=== PATIENT | female | born 1950 | race Caucasian/White ===

== ENCOUNTER 2017-08-20 22:41 | Emergency (ER) | payer MEDICARE ==
--- NOTE | 2017-08-20 23:44 | ERPHSYRPT ---
- History of Present Illness Time Seen by Provider: 08/20/17 23:25 Source: patient, family () Exam Limitations: no limitations Physician History: FOR THE PAST 5 DAYS PT HAS HAD DIARRHEA; FOR THE PAST 4 DAYS SHAKES IN HER LEGS. ABOUT 2.5 HOURS AGO PT HAD MID ANTERIOR CHEST PRESSURE WHICH HAS SINCE DISAPPEARED. PT DENIES SHORTNESS OF AIR, VOMITING, FEVER. Allergies/Adverse Reactions: hydromorphone [From Dilaudid] Allergy (Severe, Verified 08/20/17 23:48) Difficulty Breathing morphine Allergy (Severe, Verified 08/20/17 23:48) Difficulty Breathing ciprofloxacin [From Cipro] Allergy (Verified 08/20/17 23:48) diphenhydramine [From Benadryl] Allergy (Verified 08/20/17 23:48) meclofenamic acid [From Meclomen] Allergy (Verified 08/20/17 23:48) Home Medications: Acetaminophen [Tylenol] 650 mg PO DAILY 08/20/17 [History] Bumetanide [Bumex] 2 mg PO DAILY 08/20/17 [History] Calcium No.1/D3/B6/FA/B12/Aloe [Vitamin D3-Aloe 1,000 Unit Tab] 2 each PO DAILY 08/20/17 [History] Clonazepam [Klonopin] 0.25 mg PO QID 08/20/17 [History] Clopidogrel Bisulfate 75 mg [PLAVIX 75 MG Tablet] 75 mg PO DAILY 08/20/17 [History] Duloxetine HCl [Cymbalta] 60 mg PO DAILY 08/20/17 [History] Gabapentin [Neurontin] 600 mg PO QID 08/20/17 [History] Glimepiride 4 mg [Amaryl 4 mg] 4 mg PO DAILY 08/20/17 [History] Hydralazine HCl 10 mg PO BID 08/20/17 [History] Insulin Glargine,Hum.rec.anlog [Philip Solostnatalya] 300 unit SQ DAILY 08/20/17 [ History] Isosorbide Mononitrate 30 mg [Imdur 30 MG] 30 mg PO DAILY 08/20/17 [History ] Loratadine 10 mg [Claritin 10 mg] 10 mg PO DAILY 08/20/17 [History] Losartan Potassium [Cozaar] 100 mg PO DAILY 08/20/17 [History] Magnesium 250 mg PO DAILY 08/20/17 [History] Metolazone 2.5 mg [Zaroxolyn 2.5 MG] 2.5 mg PO DAILY 08/20/17 [History] Metoprolol Heller/Hydrochlorothiaz [Metoprolol ER-Hctz 50-12.5 mg] 1 each PO DAILY 08/20/17 [History] Morphine Sulfate/Naltrexone [Embeda 30-1.2 mg Capsule] 1 each PO BID 08/20/17 [ History] Multivitamin [Multi-Vitamin Daily] 1 each PO DAILY 08/20/17 [History] Nitroglycerin 0.4 mg Tablet [Nitrostat 0.4 MG Tablet] 0.4 mg SL DAILY PRN 08/20/17 [History] Potassium Chloride 10 Meq Tab* [Klor Con 10 MEQ] 10 meq PO 5XD 08/20/17 [ History] Trazodone HCl 50 mg [Desyrel 50 mg] 50 mg PO HS 08/20/17 [History] - Review of Systems Constitutional: No Fever Respiratory: No Dyspnea Cardiac: Other (CHEST PRESSURE) Abdominal/Gastrointestinal: Diarrhea, No Vomiting Musculoskeletal: Other (SHAKES IN HER LEGS) All Other Systems: Reviewed and Negative - Past Medical History Pertinent Past Medical History: Yes Neurological History: Migraines ENT History: Cataracts Cardiac History: Hypertension, Other Respiratory History: CHF Endocrine Medical History: Adrenal Insufficiency, Diabetes Type II Musculoskeletal History: Degenerative Disk Disease, Fibromyalgia, Fractures, Osteoarthritis GI Medical History: Gallbladder Disease, Hemorrhoids History: Renal Disease, Other Psycho-Social History: Anxiety, Depression, Panic Disorder Female Reproductive Disorders: No Pertinent History Other Medical History: stage 4 renal disease,valve replacement. rt ankle,rt leg, cancer left breast, - Past Surgical History Past Surgical History: Yes Neuro Surgical History: No Pertinent History Gastrointestinal: Cholecystectomy, Other Musculoskeletal: Orthopedic Surgery Female Surgical History: Hysterectomy, Section, Tubal Ligation, Mastectomy Other Surgical History: intestinal bypass and then reverse,sinus surgery times 2 roof/mouth then sinus surgery nose,left foot planters wart,right breast tumor, rt ankel/right leg,left breast mastectomy with sentinel removed,6 marek steroid inj,t.a.v.r.-transcatheter aortic value replacement,lumbar laminectomy, - Social History Smoking Status: Never smoker Exposure to second hand smoke: No Drug Use: none - Nursing Vital Signs Nursing Vital Signs: Initial Vital Signs Temperature 98.5 F 08/20/17 23:28 Pulse Rate 90 08/20/17 23:28 Respiratory Rate 18 08/20/17 23:28 Blood Pressure 153/80 08/20/17 23:28 O2 Sat by Pulse Oximetry 98 08/20/17 23:28 - Physical Exam General Appearance: alert Eye Exam: PERRL/EOMI Ears, Nose, Throat Exam: TMs normal, pharynx normal, moist mucous membranes Neck Exam: normal inspection Respiratory Exam: lungs clear Cardiovascular Exam: normal heart sounds Gastrointestinal/Abdomen Exam: soft, other (B.S. MODERATELY HYPERACTIVE AND NORMOTONIC) Back Exam: normal inspection Extremity Exam: normal range of motion Neurologic Exam: alert, cooperative, sensation nml, other (NO BABINSKI PRESENT) , No motor deficits, No motor weakness Skin Exam: warm, dry - Course Nursing assessment & vital signs reviewed: Yes Ordered Tests: Active Orders 24 hr Category Date Time Status IV Insertion STAT Care 08/20/17 23:38 Active Medication Summary Generic Name Dose Route Start Last Admin Trade Name Freq PRN Reason Stop Dose Admin Sodium Chloride 1,000 mls @ 100 mls/hr 08/20/17 23:45 08/21/17 00:07 Sodium Chloride 0.9% 1000 Ml IV 09/19/17 23:44 100 mls/hr .Q10H CESAR Administration Discontinued Medications Generic Name Dose Route Start Last Admin Trade Name Freq PRN Reason Stop Dose Admin Fentanyl Citrate 25 mcg 08/21/17 02:14 Sublimaze 100 Mcg/2 Ml IV 08/21/17 02:15 STAT ONE Magnesium Sulfate/Dextrose 100 mls @ 200 mls/hr 08/21/17 00:51 08/21/17 01:18 Magnesium 1 Gm / 100 Ml D5w IV 08/21/17 01:20 200 mls/hr STAT ONE Administration Sodium Chloride 1,000 mls @ 999 mls/hr 08/21/17 00:51 08/21/17 01:18 Sodium Chloride 0.9% 1000 Ml IV 08/21/17 01:51 999 mls/hr .Q1H1M STA Administration Magnesium Sulfate/Dextrose Confirm 08/21/17 01:17 Magnesium 1 Gm / 100 Ml D5w Administered 08/21/17 01:18 Dose 100 mls @ ud IV .STK-MED ONE Trimethoprim/Sulfamethoxazole 1 tab 08/21/17 02:14 Bactrim Ds Tablet PO 08/21/17 02:15 STAT ONE Lab/Rad Data: Laboratory Result Diagrams 08/20/17 00:02 08/20/17 00:02 Laboratory Results 08/20/17 08/20/17 08/20/17 Range/Units 01:06 00:02 00:02 WBC (4.0-10.5) K/mm3 RBC (4.1-5.4) M/mm3 Hgb (12.0-16.0) gm/dl Hct (35-47) % MCV (78-100) fl MCH (26-32) pg MCHC (32-36) g/dl RDW (11.5-14.0) % Plt Count (150-450) K/mm3 MPV (6-9.5) fl Gran % (36.0-66.0) % Lymphocytes % (24.0-44.0) % Monocytes % (0.0-12.0) % Eosinophils % (0.00-5.0) % Basophils % (0.0-0.4) % Basophils # (0-0.4) Sodium 126 L (136-145) mEq/L Potassium 4.3 (3.5-5.1) mEq/L Chloride 93 L (98-107) mEq/L Carbon Dioxide 25.8 (21-32) mEq/L Anion Gap 11.4 (5-15) MEQ/L BUN 20 (9-20) mg/dL Creatinine 1.46 H (0.55-1.30) mg/dl Estimated GFR 38 ML/MIN Glucose 246 H (70-110) MG/DL Calcium 8.7 (8.5-10.1) mg/dL Magnesium 1.6 L (1.8-2.4) mg/dL Total Bilirubin 0.30 (0.2-1.0) mg/dL AST 16 (15-37) U/L ALT 20 (12-78) U/L Alkaline Phosphatase 107 (46-116) U/L Serum Total Protein 6.5 (6.4-8.2) gm/dL Albumin 2.9 L (3.4-5.0) g/dL Amylase 31 (25-115) U/L Lipase 225 (73-393) U/L Ur Collection Type VOID Urine Color YELLOW (YELLOW) Urine Appearance CLEAR (CLEAR) Urine pH 6.0 (5-6) Ur Specific [place] 1.010 (1.005-1.025) Urine Protein NEGATIVE (Negative) Urine Ketones NEGATIVE (NEGATIVE) Urine Blood NEGATIVE (0-5) Tulio/ul Urine Nitrite NEGATIVE (NEGATIVE) Urine Bilirubin NEGATIVE (NEGATIVE) Urine Urobilinogen NORMAL (0-1) mg/dL Ur Leukocyte Esterase 1+ (NEGATIVE) Urine Microscopic RBC 2-5 (0-2) /HPF Urine Microscopic WBC 2-5 (0-5) /HPF Ur Epithelial Cells FEW (FEW) /HPF Urine Bacteria FEW (NEGATIVE) /HPF Urine Culture Reflexed NO (NO) Urine Glucose 100 (NEGATIVE) mg/dL Specimen Received 08/21/17 0100 08/20/17 Range/Units 00:02 WBC 10.2 (4.0-10.5) K/mm3 RBC 3.62 L (4.1-5.4) M/mm3 Hgb 10.8 L (12.0-16.0) gm/dl Hct 31.9 L (35-47) % MCV 88.1 (78-100) fl MCH 29.8 (26-32) pg MCHC 33.9 (32-36) g/dl RDW 12.8 (11.5-14.0) % Plt Count 163 (150-450) K/mm3 MPV 10.7 H (6-9.5) fl Gran % 68.0 H (36.0-66.0) % Lymphocytes % 20.3 L (24.0-44.0) % Monocytes % 10.0 (0.0-12.0) % Eosinophils % 1.5 (0.00-5.0) % Basophils % 0.2 (0.0-0.4) % Basophils # 0.02 (0-0.4) Sodium (136-145) mEq/L Potassium (3.5-5.1) mEq/L Chloride (98-107) mEq/L Carbon Dioxide (21-32) mEq/L Anion Gap (5-15) MEQ/L BUN (9-20) mg/dL Creatinine (0.55-1.30) mg/dl Estimated GFR ML/MIN Glucose (70-110) MG/DL Calcium (8.5-10.1) mg/dL Magnesium (1.8-2.4) mg/dL Total Bilirubin (0.2-1.0) mg/dL AST (15-37) U/L ALT (12-78) U/L Alkaline Phosphatase (46-116) U/L Serum Total Protein (6.4-8.2) gm/dL Albumin (3.4-5.0) g/dL Amylase (25-115) U/L Lipase (73-393) U/L Ur Collection Type Urine Color (YELLOW) Urine Appearance (CLEAR) Urine pH (5-6) Ur Specific [place] (1.005-1.025) Urine Protein (Negative) Urine Ketones (NEGATIVE) Urine Blood (0-5) Tulio/ul Urine Nitrite (NEGATIVE) Urine Bilirubin (NEGATIVE) Urine Urobilinogen (0-1) mg/dL Ur Leukocyte Esterase (NEGATIVE) Urine Microscopic RBC (0-2) /HPF Urine Microscopic WBC (0-5) /HPF Ur Epithelial Cells (FEW) /HPF Urine Bacteria (NEGATIVE) /HPF Urine Culture Reflexed (NO) Urine Glucose (NEGATIVE) mg/dL Specimen Received - Departure Time of Disposition: 02:20 Departure Disposition: Home Clinical Impression: DIARRHEA, HYPOMAGNESEMIA, HYPONATREMIA, UTI, HTN, DM, FIBROMYALGIA, CKD, ANXIETY, DEPRESSION Condition: Stable Critical Care Time: No Referrals: SONIA MARTIN MD [Primary Care Provider] - Instructions: Diarrhea and Traveler's Diarrhea, Adult (DC), Urinary Tract Infections in Adults Additional Instructions: FOLLOW UP WITH PRIVATE DOCTOR TOMORROW. Prescriptions: Smz/Tmp Ds Tablet [Bactrim Ds Tablet] 1 udtab PO BID #20 tablet
[2017-08-20] MEDS ORDERED: Sodium Chloride 0.9% 1000 ML 1,000 ML IV SCH (23:45)
[2017-08-20 23:47] VITALS: O2SAT 98
[2017-08-21 00:06] LABS: BASOPHIL % 0.2 % (0.0-0.4); Basophil (Absolute #) 0.02 (0-0.4); Eosinophil % 1.5 % (0.00-5.0); Eosinophil (Absolute #) 0.15 (0-0.5); Granulocyte Absolute (ANC) 6.92 (1.4-6.9); Hematocrit 31.9 % (35-47); Hemoglobin 10.8 gm/dl (12.0-16.0); Lymphocyte (Absolute #) 2.06 (1.0-4.6); Lymphocytes % 20.3 % (24.0-44.0); Mean Cell Volume 88.1 fl (78-100); Mean Corpuscular Hemoglobin 29.8 pg (26-32); Mean Corpuscular Hgb Concent. 33.9 g/dl (32-36); Mean Platelet Volume 10.7 fl (6-9.5); Monocyte (Absolute #) 1.02 (0.0-1.3); Platelet Count 163 K/mm3 (150-450); Red Blood Count 3.62 M/mm3 (4.1-5.4); Red Cell Distribution Width 12.8 % (11.5-14.0); White Blood Count 10.2 K/mm3 (4.0-10.5)
[2017-08-21] MEDS ORDERED: Sodium Chloride 0.9% 1000 ML 1,000 ML ONE (00:06)
[2017-08-21 00:32] LABS: ALBUMIN 2.9 g/dL (3.4-5.0); ANION GAP 11.4 MEQ/L (5-15); BILIRUBIN,TOTAL 0.3 mg/dL (0.2-1.0); Calcium 8.7 mg/dL (8.5-10.1); Carbon Dioxide 25.8 mEq/L (21-32); Creatinine 1 1.46 mg/dl (0.55-1.30); Potassium 4.3 mEq/L (3.5-5.1); Total Protein 6.5 gm/dL (6.4-8.2)
[2017-08-21] MEDS ORDERED: Magnesium 1 Gm / 100 Ml D5W*** 100 ML IV ONE ×2 (00:51→01:17)
[2017-08-21] MEDS ORDERED: Sodium Chloride 0.9% 1000 ML 1,000 ML IV STA (00:51)
[2017-08-21 01:33] LABS: Appearance CLEAR (CLEAR); Bilirubin NEGATIVE (NEGATIVE); Blood NEGATIVE Ery/ul (0-5); Glucose 100 mg/dL (NEGATIVE); Ketones NEGATIVE (NEGATIVE); Leukocyte Esterase 1+ (NEGATIVE); Nitrite NEGATIVE (NEGATIVE); Protein,Urine Dip NEGATIVE (Negative); Urobilinogen NORMAL mg/dL (0-1)
[2017-08-21 01:34] LABS: Bacteria FEW /HPF (NEGATIVE); Epithelial Cells FEW /HPF (FEW)
[2017-08-21] MEDS ORDERED: SUBLIMAZE 100 MCG/2 ML IV ONE (02:14)
[2017-08-21] MEDS ORDERED: BACTRIM DS TABLET PO ONE ×2 (02:14→02:18)
[2017-08-21] MEDS ORDERED: SUBLIMAZE 100 MCG/2 ML ONE (02:19)
[2017-08-21 02:38] VITALS: BP 162/85; PULSE 80
== END 2017-08-21 02:38 | disposition home or self-care (01) ==
LOC: ED 22:41
DX: R19.7 Diarrhea, unspecified (principal); E83.42 Hypomagnesemia; N39.0 Urinary tract infection, site not specified; E87.1 Hypo-osmolality and hyponatremia; I10 Essential (primary) hypertension; Z79.899 Other long term (current) drug therapy; E11.9 Type 2 diabetes mellitus without complications; M79.7 Fibromyalgia; N18.9 Chronic kidney disease, unspecified; F41.9 Anxiety disorder, unspecified; F32.9 Major depressive disorder, single episode, unspecified
CPT/HCPCS: 36000; 36415; 80053; 81000; 82150; 83690; 83735; 85025; 96360; 96365; 96374; 99284; J3010; J3475; A9270-GY

== ENCOUNTER 2017-09-09 14:04 | Emergency (ER) | payer MEDICARE ==
[2017-09-09 14:25] VITALS: BP 189/82; PULSE 86; O2SAT 99
[2017-09-09] MEDS ORDERED: Lactated Ringers 1,000 ML IV ONE ×2 (15:10→15:49)
[2017-09-09] MEDS ORDERED: Zofran 4 MG/2 ML VIAL IV ONE (15:11)
--- NOTE | 2017-09-09 15:14 | ERPHSYRPT ---
- History of Present Illness Time Seen by Provider: 09/09/17 15:01 Source: patient, family () Patient Subjective Stated Complaint: diarrhea Triage Nursing Assessment: pt to er c/o diarrhead x3 days, no vomiting, no nausea, called dr. johnson who advised her to come to ER for possible dehydration Physician History: CC: diarrhea Hx: 67 y/o patient of Dr Martin with intermittent diarrhea for the past few weeks. She has hx of DM. No blood. No vomiting. No fever. Stomach feels queasy. Severity: moderate (intermittent) Allergies/Adverse Reactions: hydromorphone [From Dilaudid] Allergy (Severe, Verified 08/20/17 23:48) Difficulty Breathing morphine Allergy (Severe, Verified 08/20/17 23:48) Difficulty Breathing ciprofloxacin [From Cipro] Allergy (Verified 08/20/17 23:48) diphenhydramine [From Benadryl] Allergy (Verified 08/20/17 23:48) meclofenamic acid [From Meclomen] Allergy (Verified 08/20/17 23:48) Home Medications: Acetaminophen [Tylenol] 650 mg PO DAILY 08/20/17 [History] Bumetanide [Bumex] 2 mg PO DAILY 08/20/17 [History] Calcium No.1/D3/B6/FA/B12/Aloe [Vitamin D3-Aloe 1,000 Unit Tab] 2 each PO DAILY 08/20/17 [History] Clonazepam [Klonopin] 0.25 mg PO QID 08/20/17 [History] Clopidogrel Bisulfate 75 mg [PLAVIX 75 MG Tablet] 75 mg PO DAILY 08/20/17 [History] Duloxetine HCl [Cymbalta] 60 mg PO DAILY 08/20/17 [History] Gabapentin [Neurontin] 600 mg PO QID 08/20/17 [History] Hydralazine HCl 10 mg PO BID 08/20/17 [History] Insulin Glargine,Hum.rec.anlog [Philip Sainz] 300 unit SQ DAILY 08/20/17 [ History] Isosorbide Mononitrate 30 mg [Imdur 30 MG] 30 mg PO DAILY 08/20/17 [History ] Loratadine 10 mg [Claritin 10 mg] 10 mg PO DAILY 08/20/17 [History] Losartan Potassium [Cozaar] 100 mg PO DAILY 08/20/17 [History] Magnesium 250 mg PO DAILY 08/20/17 [History] Metolazone 2.5 mg [Zaroxolyn 2.5 MG] 2.5 mg PO DAILY 08/20/17 [History] Metoprolol Heller/Hydrochlorothiaz [Metoprolol ER-Hctz 50-12.5 mg] 1 each PO DAILY 08/20/17 [History] Multivitamin [Multi-Vitamin Daily] 1 each PO DAILY 08/20/17 [History] Nitroglycerin 0.4 mg Tablet [Nitrostat 0.4 MG Tablet] 0.4 mg SL DAILY PRN 08/20/17 [History] Potassium Chloride 10 Meq Tab* [Klor Con 10 MEQ] 10 meq PO 5XD 08/20/17 [ History] Trazodone HCl 50 mg [Desyrel 50 mg] 50 mg PO HS 08/20/17 [History] Hx Tetanus, Diphtheria Vaccination/Date Given: No Hx Influenza Vaccination/Date Given: Yes Hx Pneumococcal Vaccination/Date Given: Yes - Review of Systems Constitutional: Fatigue, Malaise, Weakness, No Fever, No Chills Eyes: No Symptoms Ears, Nose, & Throat: No Symptoms Respiratory: No Cough, No Dyspnea Cardiac: No Chest Pain Abdominal/Gastrointestinal: Nausea, Diarrhea, No Abdominal Pain, No Vomiting Genitourinary Symptoms: No Dysuria Skin: No Rash Neurological: No Headache All Other Systems: Reviewed and Negative - Past Medical History Pertinent Past Medical History: Yes Neurological History: Migraines ENT History: Cataracts Cardiac History: Coronary Artery Disease, Other Respiratory History: No Pertinent History Endocrine Medical History: Diabetes Type II Musculoskeletal History: Degenerative Disk Disease GI Medical History: Irritable Bowel History: No Pertinent History Psycho-Social History: Anxiety, Depression Female Reproductive Disorders: No Pertinent History Other Medical History: stage 4 renal disease,valve replacement. rt ankle,rt leg, cancer left breast, - Past Surgical History Past Surgical History: Yes Neuro Surgical History: No Pertinent History Cardiac: Other Respiratory: No Pertinent History Gastrointestinal: Bowel Surgery Genitourinary: No Pertinent History Musculoskeletal: No Pertinent History Female Surgical History: No Pertinent History Other Surgical History: intestinal bypass and then reverse,sinus surgery times 2 roof/mouth then sinus surgery nose,left foot planters wart,right breast tumor, rt ankel/right leg,left breast mastectomy with sentinel removed,6 marek steroid inj,t.a.v.r.-transcatheter aortic value replacement,lumbar laminectomy, - Social History Smoking Status: Never smoker Exposure to second hand smoke: No Drug Use: none Patient Lives Alone: No - Female History Hx Now: No - Nursing Vital Signs Nursing Vital Signs: Initial Vital Signs Temperature 97.9 F 09/09/17 14:16 Pulse Rate 86 09/09/17 14:16 Respiratory Rate 20 09/09/17 14:16 Blood Pressure 189/82 09/09/17 14:16 O2 Sat by Pulse Oximetry 99 09/09/17 14:16 Pain Scale Pain Intensity 4 - Physical Exam General Appearance: alert Eye Exam: PERRL/EOMI Ears, Nose, Throat Exam: dry mucous membranes Neck Exam: normal inspection, non-tender, supple Respiratory Exam: normal breath sounds Cardiovascular Exam: regular rate/rhythm Gastrointestinal/Abdomen Exam: soft, No tenderness, No distention Extremity Exam: normal inspection, normal range of motion Neurologic Exam: alert, oriented x 3, cooperative, sensation nml, No motor deficits Skin Exam: warm, dry, No rash SpO2 Interpretation: normal SpO2: 99 Oxygen Delivery: Room Air - Course Nursing assessment & vital signs reviewed: Yes - Radiology Exams AAS X-ray Interpretation: Teleradiologist Report (minimal air distended small and large bowel loops with fluid leveling. Rule out ileus vs enterocolitis. ) Ordered Tests: Active Orders 24 hr Category Date Time Status IV Insertion STAT Care 09/09/17 15:10 Active OBSTR/ACUTE ABDOMEN SERIES Stat Exams 09/09/17 15:10 Completed CBC W DIFF Stat Lab 09/09/17 15:54 Completed CMP Stat Lab 09/09/17 15:54 Completed Medication Summary Discontinued Medications Generic Name Dose Route Start Last Admin Trade Name Freq PRN Reason Stop Dose Admin Lactated Ringer's 1,000 mls @ 999 mls/hr 09/09/17 15:10 09/09/17 15:51 Lactated Ringers IV 09/09/17 16:10 999 mls/hr .Q1H1M ONE Administration Lactated Ringer's Confirm 09/09/17 15:49 Lactated Ringers Administered 09/09/17 15:50 Dose 1,000 mls @ ud IV .STK-MED ONE Ondansetron HCl 4 mg 09/09/17 15:11 09/09/17 15:50 Zofran 4 Mg/2 Ml Vial IV 09/09/17 15:12 4 mg STAT ONE Administration Ondansetron HCl Confirm 09/09/17 15:49 Zofran 4 Mg/2 Ml Vial Administered 09/09/17 15:50 Dose 4 mg .ROUTE .STK-MED ONE Lab/Rad Data: Laboratory Result Diagrams 09/09/17 15:54 09/09/17 15:54 Laboratory Results 09/09/17 09/09/17 Range/Units 15:54 15:54 WBC 9.1 (4.0-10.5) K/mm3 RBC 4.12 (4.1-5.4) M/mm3 Hgb 12.6 (12.0-16.0) gm/dl Hct 37.0 (35-47) % MCV 89.8 (78-100) fl MCH 30.6 (26-32) pg MCHC 34.1 (32-36) g/dl RDW 13.0 (11.5-14.0) % Plt Count 158 (150-450) K/mm3 MPV 10.0 H (6-9.5) fl Gran % 71.5 H (36.0-66.0) % Lymphocytes % 20.0 L (24.0-44.0) % Monocytes % 7.1 (0.0-12.0) % Eosinophils % 1.3 (0.00-5.0) % Basophils % 0.1 (0.0-0.4) % Basophils # 0.01 (0-0.4) Sodium 135 L (137-145) mmol/L Potassium 3.7 (3.5-5.1) mmol/L Chloride 88 L (98-107) mEq/L Carbon Dioxide 36 H (22-30) mmol/L Anion Gap 14.0 MEQ/L BUN 28 H (7-17) mg/dl Creatinine 1.26 H (0.52-1.04) mg/dl Estimated GFR 45 ML/MIN Glucose 212 H (74-106) mg/dL Calcium 9.6 (8.4-10.2) mg/dl Total Bilirubin 0.60 (0.2-1.3) mg/d? AST 21 (14-36) U/L ALT 28 (0-35) U/L Alkaline Phosphatase 143 H (38-126) U/L Serum Total Protein 7.6 (6.3-8.2) mg/dl Albumin 4.1 (3.5-5.0) g/dl - Progress Progress Note: 09/09/17 17:03 1L LR given. No diarrhea here. Collection kit for stool GI panel given. made her an appt with Dr Martin in AM. Will release with instr. Counseled pt/family regarding: lab results, diagnosis, need for follow-up, rad results - Departure Time of Disposition: 17:04 Departure Disposition: Home Clinical Impression: Diarrhea Qualifiers: Diarrhea type: unspecified type Qualified Code(s): R19.7 - Diarrhea, unspecified Condition: Fair Critical Care Time: No Referrals: SONIA MARTIN MD [Primary Care Provider] - Instructions: Diarrhea and Traveler's Diarrhea, Adult (DC) Additional Instructions: See Dr Martin tomorrow as planned. Sip fluids. Collect stool sample for lab as instructed.
[2017-09-09] MEDS ORDERED: Zofran 4 MG/2 ML VIAL ONE (15:49)
[2017-09-09 15:53] LABS: BASOPHIL % 0.1 % (0.0-0.4); Basophil (Absolute #) 0.01 (0-0.4); Eosinophil % 1.3 % (0.00-5.0); Eosinophil (Absolute #) 0.12 (0-0.5); Granulocyte Absolute (ANC) 6.51 (1.4-6.9); Granulocytes % 71.5 % (36.0-66.0); Hemoglobin 12.6 gm/dl (12.0-16.0); Lymphocyte (Absolute #) 1.82 (1.0-4.6); Mean Cell Volume 89.8 fl (78-100); Mean Corpuscular Hemoglobin 30.6 pg (26-32); Mean Corpuscular Hgb Concent. 34.1 g/dl (32-36); Monocyte (Absolute #) 0.65 (0.0-1.3); Monocytes % 7.1 % (0.0-12.0); Platelet Count 158 K/mm3 (150-450); Red Blood Count 4.12 M/mm3 (4.1-5.4); White Blood Count 9.1 K/mm3 (4.0-10.5)
[2017-09-09 16:18] LABS: ALBUMIN 4.1 g/dl (3.5-5.0); BILIRUBIN,TOTAL 0.6 mg/d? (0.2-1.3); Calcium 9.6 mg/dl (8.4-10.2); Creatinine 1 1.26 mg/dl (0.52-1.04); Potassium 3.7 mmol/L (3.5-5.1); Total Protein 7.6 mg/dl (6.3-8.2)
--- NOTE | 2017-09-09 16:25 | XRAY ---
Indication: Diarrhea 3 days. Comparison: Chest exam September 24, 2013. 2 views of the abdomen demonstrates minimal air distended small and large bowel loops with minimal fluid leveling, ileus versus enterocolitis. No focal bowel dilatation, collection, or free air. Right lower quadrant ingested medication/pill. Scattered vascular calcifications. Solid organs unremarkable. Osseous structures intact with mild multilevel lumbar degenerative spondylosis and L4-L5 laminectomy. Single PA chest demonstrates normal heart and lungs with new cardiac stent graft. Bony thorax intact. Impression: 1. Minimal air distended small and large bowel loops with fluid leveling. Rule out ileus versus enterocolitis. 2. Nonacute 1 view chest.
== END 2017-09-09 18:06 ==
LOC: ED 14:04
DX: R19.7 Diarrhea, unspecified (principal); I25.10 Atherosclerotic heart disease of native coronary artery without angina pectoris; I10 Essential (primary) hypertension; Z79.899 Other long term (current) drug therapy
CPT/HCPCS: 36000; 36415; 74022; 80053; 82962; 85025; 96360; 96374; 99283; 99284; J2405

== ENCOUNTER 2017-12-16 17:39 | Observation (INO) | payer MEDICARE ==
[2017-12-16] MEDS ORDERED: Sodium Chloride 0.9% 1000 ML 1,000 ML IV STA (18:41)
[2017-12-16] MEDS ORDERED: Sodium Chloride 0.9% 1000 ML 1,000 ML ONE (19:08)
[2017-12-16 19:22] LABS: BASOPHIL % 0.3 % (0.0-0.4); Basophil (Absolute #) 0.03 (0-0.4); Eosinophil % 6.3 % (0.00-5.0); Eosinophil (Absolute #) 0.54 (0-0.5); Granulocyte Absolute (ANC) 5.08 (1.4-6.9); Hematocrit 30.4 % (35-47); Hemoglobin 10.8 gm/dl (12.0-16.0); Lymphocyte (Absolute #) 1.96 (1.0-4.6); Lymphocytes % 22.8 % (24.0-44.0); Mean Cell Volume 91.3 fl (78-100); Mean Corpuscular Hemoglobin 32.4 pg (26-32); Mean Corpuscular Hgb Concent. 35.5 g/dl (32-36); Mean Platelet Volume 10.4 fl (6-9.5); Monocytes % 11.6 % (0.0-12.0); Platelet Count 217 K/mm3 (150-450); Red Blood Count 3.33 M/mm3 (4.1-5.4); Red Cell Distribution Width 13.7 % (11.5-14.0); White Blood Count 8.6 K/mm3 (4.0-10.5)
[2017-12-16 19:25] LABS: INR 0.99 (0.8-3.0)
[2017-12-16 19:31] LABS: ALBUMIN 3.4 g/dL (3.5-5.0); ANION GAP 11.3 MEQ/L (5-15); BILIRUBIN,TOTAL 0.4 mg/dL (0.2-1.3); Calcium 9.2 mg/dL (8.4-10.2); Creatinine 1 2.21 mg/dL (0.52-1.04); Potassium 3.6 mmol/L (3.5-5.1)
--- NOTE | 2017-12-16 19:51 | ERPHSYRPT ---
- History of Present Illness Time Seen by Provider: 12/16/17 19:46 Source: patient, family Exam Limitations: no limitations Patient Subjective Stated Complaint: PT states "I fell on friday and today I am just confused. I do not feel like myself. When I stand up, my body just does not want to respoind like i feel it should. my lower left back is hurting as well." Triage Nursing Assessment: Pt alert and oriented X 3, skin pwd PT ambulates slowly, able to speakin clear full sentences. Pt will occasionally say the wrong word, slightly tired, chandra stroke scale is negative Physician History: 67-year-old white female who apparently is here because that she fell on Friday and has felt like she's been confused family states that she has had somewhat of a slurred speech she is walking with a shuffling gait he fell Friday 2 days ago Patient apparently has a history of chronic back pain family states that last Friday and Friday she was on cyclobenzaprine which was stopped by her family doctor. Then on Friday and Friday patient was on Embed She would this was stopped and then she was on tramadol Friday, Patient states she just doesn't feel right No fevers no vomiting Patient briefly seen by Dr. Perez and labs were placed including CBC CMP troponin EKG head CT UA Patient is alert orientedx3 Past medical history includes migraines, diabetes type 2, cataracts, coronary artery disease, irritable bowel, degenerative disc disease, anxiety, depression , stage IV renal disease, valve replacement, orthopedic surgery no thank you past surgical history includes intestinal bypass, sinus surgeries, mouth surgery , right breast surgery, ankle and leg surgery, aortic valve replacement, lumbar laminectomy Timing/Duration: day(s) (3 days) Severity: moderate Modifying Factors: Improves With: nothing Associated Symptoms: No nausea, No vomiting, No abdominal pain, No shortness of breath, No heartburn, No diaphoresis, No cough, No chills, No chest pain, No fever, No headaches, No loss of appetite, No malaise, No rash, No syncope, No seizure, No weakness Allergies/Adverse Reactions: hydromorphone [From Dilaudid] Allergy (Severe, Verified 08/20/17 23:48) Difficulty Breathing morphine Allergy (Severe, Verified 08/20/17 23:48) Difficulty Breathing Sulfa (Sulfonamide Antibiotics) Allergy (Severe, Verified 12/16/17 17:49) ciprofloxacin [From Cipro] Allergy (Verified 08/20/17 23:48) diphenhydramine [From Benadryl] Allergy (Verified 08/20/17 23:48) meclofenamic acid [From Meclomen] Allergy (Verified 08/20/17 23:48) Home Medications: Acetaminophen [Tylenol] 650 mg PO DAILY 08/20/17 [History] Bumetanide [Bumex] 2 mg PO DAILY 08/20/17 [History] Calcium No.1/D3/B6/FA/B12/Aloe [Vitamin D3-Aloe 1,000 Unit Tab] 2 each PO DAILY 08/20/17 [History] Clonazepam [Klonopin] 0.25 mg PO QID 08/20/17 [History] Clopidogrel Bisulfate 75 mg [PLAVIX 75 MG Tablet] 75 mg PO DAILY 08/20/17 [History] Duloxetine HCl [Cymbalta] 60 mg PO DAILY 08/20/17 [History] Gabapentin [Neurontin] 600 mg PO QID 08/20/17 [History] Insulin Glargine,Hum.rec.anlog [Toujeo Solostar] 300 unit SQ DAILY 08/20/17 [ History] Isosorbide Mononitrate 30 mg [Imdur 30 MG] 30 mg PO DAILY 08/20/17 [History ] Loratadine 10 mg [Claritin 10 mg] 10 mg PO DAILY 08/20/17 [History] Losartan Potassium [Cozaar] 100 mg PO DAILY 08/20/17 [History] Magnesium 250 mg PO DAILY 08/20/17 [History] Metolazone 2.5 mg [Zaroxolyn 2.5 MG] 2.5 mg PO DAILY 08/20/17 [History] Metoprolol Heller/Hydrochlorothiaz [Metoprolol ER-Hctz 50-12.5 mg] 1 each PO DAILY 08/20/17 [History] Multivitamin [Multi-Vitamin Daily] 1 each PO DAILY 08/20/17 [History] Nitroglycerin 0.4 mg Tablet [Nitrostat 0.4 MG Tablet] 0.4 mg SL DAILY PRN 08/20/17 [History] Potassium Chloride 10 Meq Tab* [Klor Con 10 MEQ] 10 meq PO 5XD 08/20/17 [ History] Trazodone HCl 50 mg [Desyrel 50 mg] 50 mg PO HS 08/20/17 [History] Hx Tetanus, Diphtheria Vaccination/Date Given: Yes Hx Influenza Vaccination/Date Given: Yes Hx Pneumococcal Vaccination/Date Given: Yes Immunizations Up to Date: Yes - Review of Systems Constitutional: Other (patient states she just doesn't feel right shuffling gait ), No Fever, No Chills Eyes: No Symptoms Ears, Nose, & Throat: No Symptoms, Other (trouble swallowing) Respiratory: No Cough, No Dyspnea Cardiac: No Chest Pain, No Edema, No Syncope Abdominal/Gastrointestinal: No Abdominal Pain, No Nausea, No Vomiting, No Diarrhea Genitourinary Symptoms: No Dysuria Musculoskeletal: No Back Pain, No Neck Pain Neurological: No Dizziness, No Focal Weakness, No Sensory Changes Psychological: No Symptoms Endocrine: No Symptoms All Other Systems: Reviewed and Negative - Past Medical History Pertinent Past Medical History: Yes Neurological History: Migraines ENT History: Cataracts Cardiac History: Coronary Artery Disease, Other Respiratory History: No Pertinent History Endocrine Medical History: Diabetes Type II Musculoskeletal History: Degenerative Disk Disease GI Medical History: Irritable Bowel History: No Pertinent History Psycho-Social History: Anxiety, Depression Female Reproductive Disorders: No Pertinent History Other Medical History: stage 4 renal disease,valve replacement. rt ankle,rt leg, cancer left breast, - Past Surgical History Past Surgical History: Yes Neuro Surgical History: No Pertinent History Cardiac: Other Respiratory: No Pertinent History Gastrointestinal: Bowel Surgery Genitourinary: No Pertinent History Musculoskeletal: No Pertinent History Female Surgical History: No Pertinent History Other Surgical History: intestinal bypass and then reverse,sinus surgery times 2 roof/mouth then sinus surgery nose,left foot planters wart,right breast tumor, rt ankel/right leg,left breast mastectomy with sentinel removed,6 marek steroid inj,t.a.v.r.-transcatheter aortic value replacement,lumbar laminectomy, - Social History Smoking Status: Never smoker Exposure to second hand smoke: No Drug Use: none Patient Lives Alone: No - Female History Hx Now: No - Nursing Vital Signs Nursing Vital Signs: Initial Vital Signs Temperature 98.3 F 12/16/17 17:41 Pulse Rate 80 12/16/17 17:41 Respiratory Rate 16 12/16/17 17:41 Blood Pressure 95/50 12/16/17 17:41 O2 Sat by Pulse Oximetry 92 L 12/16/17 17:41 Pain Scale Pain Intensity 0 - Physical Exam General Appearance: no apparent distress, alert Eye Exam: PERRL/EOMI, eyes nml inspection Ears, Nose, Throat Exam: normal ENT inspection, TMs normal, pharynx normal, moist mucous membranes Neck Exam: normal inspection, non-tender, supple, full range of motion Respiratory Exam: normal breath sounds, lungs clear, No respiratory distress Cardiovascular Exam: regular rate/rhythm, normal heart sounds, normal peripheral pulses Gastrointestinal/Abdomen Exam: soft, normal bowel sounds, No tenderness, No mass Back Exam: normal inspection, normal range of motion, No CVA tenderness, No vertebral tenderness Extremity Exam: normal inspection, normal range of motion, pelvis stable Neurologic Exam: alert, oriented x 3, cooperative, contract recruiter II-XII nml as tested, normal mood/affect, nml cerebellar function, nml station & gait, sensation nml, No motor deficits SpO2 Interpretation: normal (97%) SpO2: 97 Oxygen Delivery: Room Air - Course Nursing assessment & vital signs reviewed: Yes EKG Interpreted by Me: RATE, Sinus Rhythm, NORMAL AXIS, Other (EKG: Sinus rhythm , 80 bpm, normal axis, no acute ST or T wave changes noted) Ordered Tests: Active Orders 24 hr Category Date Time Status IV Insertion STAT Care 12/16/17 18:39 Active Orthostatic Vital Signs STAT Care 12/16/17 18:39 Active CHEST 1 VIEW (PORTABLE) Stat Exams 12/16/17 18:38 Taken HEAD WITHOUT CONTRAST [CT] Stat Exams 12/16/17 18:35 Taken CBC W DIFF Stat Lab 12/16/17 18:50 Completed CMP Stat Lab 12/16/17 18:50 Completed Lactic Acid Stat Lab 12/16/17 18:39 Completed PROTIME WITH INR Stat Lab 12/16/17 18:50 Completed TROPONIN Q3H Lab 12/16/17 18:50 Completed TROPONIN Q3H Lab 12/16/17 21:45 Ordered UA W/RFX UR CULTURE Stat Lab 12/16/17 20:00 Completed EKG STAT RT 12/16/17 18:39 Active Medication Summary Discontinued Medications Generic Name Dose Route Start Last Admin Trade Name Chapo PRN Reason Stop Dose Admin Sodium Chloride 1,000 mls @ 999 mls/hr 12/16/17 18:41 12/16/17 20:42 Sodium Chloride 0.9% 1000 Ml IV 12/16/17 19:41 Infused .Q1H1M STA Infusion Sodium Chloride Confirm 12/16/17 19:08 Sodium Chloride 0.9% 1000 Ml Administered 12/16/17 19:09 Dose 1,000 mls @ ud .ROUTE .[facility] Lab/Rad Data: Laboratory Result Diagrams 12/16/17 18:50 12/16/17 18:50 Laboratory Results 12/16/17 12/16/17 12/16/17 Range/Units 20:00 18:50 18:50 WBC (4.0-10.5) K/mm3 RBC (4.1-5.4) M/mm3 Hgb (12.0-16.0) gm/dl Hct (35-47) % MCV (78-100) fl MCH (26-32) pg MCHC (32-36) g/dl RDW (11.5-14.0) % Plt Count (150-450) K/mm3 MPV (6-9.5) fl Gran % (36.0-66.0) % Eos # (Auto) (0-0.5) Absolute Lymphs (auto) (1.0-4.6) Absolute Monos (auto) (0.0-1.3) Lymphocytes % (24.0-44.0) % Monocytes % (0.0-12.0) % Eosinophils % (0.00-5.0) % Basophils % (0.0-0.4) % Absolute Granulocytes (1.4-6.9) Basophils # (0-0.4) PT 11.5 (9.95-12.35) SECONDS INR 0.99 (0.8-3.0) Sodium (137-145) mmol/L Potassium (3.5-5.1) mmol/L Chloride (98-107) mmol/L Carbon Dioxide (22-30) mmol/L Anion Gap (5-15) MEQ/L BUN (7-17) mg/dL Creatinine (0.52-1.04) mg/dL Estimated GFR ML/MIN Glucose (74-106) mg/dL Lactic Acid (0.4-2.0) Calcium (8.4-10.2) mg/dL Total Bilirubin (0.2-1.3) mg/dL AST (14-36) U/L ALT (0-35) U/L Alkaline Phosphatase (38-126) U/L Troponin I 0.020 (0.000-0.034) ng/mL Serum Total Protein (6.3-8.2) g/dL Albumin (3.5-5.0) g/dL Ur Collection Type CLEAN CATCH Urine Color YELLOW (YELLOW) Urine Appearance CLEAR (CLEAR) Urine pH 5.0 (5-6) Ur Specific Deshler 1.010 (1.005-1.025) Urine Protein NEGATIVE (Negative) Urine Ketones NEGATIVE (NEGATIVE) Urine Blood NEGATIVE (0-5) Tulio/ul Urine Nitrite NEGATIVE (NEGATIVE) Urine Bilirubin NEGATIVE (NEGATIVE) Urine Urobilinogen NORMAL (0-1) mg/dL Ur Leukocyte Esterase NEGATIVE (NEGATIVE) Urine Culture Reflexed NO (NO) Urine Glucose NEGATIVE (NEGATIVE) mg/dL Specimen Received 12/16/17199912/16/17 12/16/17 12/16/17 Range/Units 18:50 18:50 18:39 WBC 8.6 (4.0-10.5) K/mm3 RBC 3.33 L (4.1-5.4) M/mm3 Hgb 10.8 L (12.0-16.0) gm/dl Hct 30.4 L (35-47) % MCV 91.3 (78-100) fl MCH 32.4 H (26-32) pg MCHC 35.5 (32-36) g/dl RDW 13.7 (11.5-14.0) % Plt Count 217 (150-450) K/mm3 MPV 10.4 H (6-9.5) fl Gran % 59.0 (36.0-66.0) % Eos # (Auto) 0.54 H (0-0.5) Absolute Lymphs (auto) 1.96 (1.0-4.6) Absolute Monos (auto) 1.00 (0.0-1.3) Lymphocytes % 22.8 L (24.0-44.0) % Monocytes % 11.6 (0.0-12.0) % Eosinophils % 6.3 H (0.00-5.0) % Basophils % 0.3 (0.0-0.4) % Absolute Granulocytes 5.08 (1.4-6.9) Basophils # 0.03 (0-0.4) PT (9.95-12.35) SECONDS INR (0.8-3.0) Sodium 124 L (137-145) mmol/L Potassium 3.6 (3.5-5.1) mmol/L Chloride 82 L (98-107) mmol/L Carbon Dioxide 34 H (22-30) mmol/L Anion Gap 11.3 (5-15) MEQ/L BUN 58 H (7-17) mg/dL Creatinine 2.21 H (0.52-1.04) mg/dL Estimated GFR 23.5 ML/MIN Glucose 120 H (74-106) mg/dL Lactic Acid 1.1 (0.4-2.0) Calcium 9.2 (8.4-10.2) mg/dL Total Bilirubin 0.40 (0.2-1.3) mg/dL AST 43 H (14-36) U/L ALT 23 (0-35) U/L Alkaline Phosphatase 116 (38-126) U/L Troponin I (0.000-0.034) ng/mL Serum Total Protein 6.0 L (6.3-8.2) g/dL Albumin 3.4 L (3.5-5.0) g/dL Ur Collection Type Urine Color (YELLOW) Urine Appearance (CLEAR) Urine pH (5-6) Ur Specific Deshler (1.005-1.025) Urine Protein (Negative) Urine Ketones (NEGATIVE) Urine Blood (0-5) Tulio/ul Urine Nitrite (NEGATIVE) Urine Bilirubin (NEGATIVE) Urine Urobilinogen (0-1) mg/dL Ur Leukocyte Esterase (NEGATIVE) Urine Culture Reflexed (NO) Urine Glucose (NEGATIVE) mg/dL Specimen Received - Progress Progress: improved Progress Note: 12/16/17 21:20 67-year-old white female arrives with complaint of feeling confused shuffling gait symptoms for 3 days after falling this is complicated by medications that she's been taking for chronic pain. On physical examination patient alert oriented 3 vitals are stable. Examination essentially normal. Patient does have a sodium of 120 she is being given normal saline 1 L. Neuro exam patient is alert oriented 3 Webb Coma Scale is 15 fingers nose is normal cardiac technician are equal and symmetrical 5 over 5 no pronator drift full range of motion to all extremities no sensory deficits. Head CT no acute intercranial changes are noted. Will go ahead and contact Dr. Martin and discuss case with him. 12/16/17 21:27 Patient's chemistry remarkable for a sodium of 124. Patient has received 1 L of normal saline IV. I've discussed the patient's case with Dr. Martin will place patient on observation obtain every 4 hours neuro checks. Provide normal saline at 100 mL per hour. - Departure Time of Disposition: 21:28 Departure Disposition: Observation Clinical Impression: Gait disturbance, Hyponatremia Condition: Fair Critical Care Time: No Referrals: SONIA MARTIN MD [Primary Care Provider] -
[2017-12-16 21:01] LABS: Appearance CLEAR (CLEAR)
[2017-12-16 21:03] LABS: Bilirubin NEGATIVE (NEGATIVE); Blood NEGATIVE Ery/ul (0-5); Glucose NEGATIVE (NEGATIVE); Ketones NEGATIVE (NEGATIVE); Leukocyte Esterase NEGATIVE (NEGATIVE); Nitrite NEGATIVE (NEGATIVE); Protein,Urine Dip NEGATIVE (Negative); Urobilinogen NORMAL mg/dL (0-1)
[2017-12-16] MEDS: Sodium Chloride 0.9% 1000 ML 1,000 ML IV SCH (22:34)
[2017-12-17] MEDS ORDERED: Klor Con 10 MEQ PO ONE (01:01)
[2017-12-17] MEDS ORDERED: Senokot-S Tablet PO PRN ×2 (01:02→07:14)
[2017-12-17] MEDS ORDERED: TYLENOL 325 MG PO PRN ×2 (01:04→07:14)
[2017-12-17] MEDS ORDERED: Toprol Xl 50 MG PO ONE (01:14)
[2017-12-17] MEDS ORDERED: NEURONTIN 300 MG PO SCH ×2 (01:30→10:00)
[2017-12-17] MEDS ORDERED: Klonopin 0.5 MG PO SCH ×2 (01:30→10:00)
[2017-12-17] MEDS ORDERED: Desyrel 150 MG PO ONE (01:30)
[2017-12-17 05:20] VITALS: O2SAT 92
[2017-12-17 05:50] LABS: BASOPHIL % 0.3 % (0.0-0.4); Basophil (Absolute #) 0.02 (0-0.4); Eosinophil % 6.4 % (0.00-5.0); Granulocyte Absolute (ANC) 4.54 (1.4-6.9); Granulocytes % 58.1 % (36.0-66.0); Hematocrit 28.7 % (35-47); Hemoglobin 10.1 gm/dl (12.0-16.0); Lymphocytes % 24.3 % (24.0-44.0); Mean Cell Volume 90.8 fl (78-100); Mean Corpuscular Hgb Concent. 35.2 g/dl (32-36); Mean Platelet Volume 10.2 fl (6-9.5); Monocyte (Absolute #) 0.85 (0.0-1.3); Monocytes % 10.9 % (0.0-12.0); Platelet Count 172 K/mm3 (150-450); Red Blood Count 3.16 M/mm3 (4.1-5.4); Red Cell Distribution Width 13.5 % (11.5-14.0); White Blood Count 7.8 K/mm3 (4.0-10.5)
[2017-12-17 05:52] LABS: Mean Corpuscular Hemoglobin 31.9 pg (26-32)
[2017-12-17 06:08] LABS: ALBUMIN 3.1 g/dL (3.5-5.0); ANION GAP 9.3 MEQ/L (5-15); BILIRUBIN,TOTAL 0.3 mg/dL (0.2-1.3); Calcium 8.6 mg/dL (8.4-10.2); Creatinine 1 1.84 mg/dL (0.52-1.04); Potassium 3.2 mmol/L (3.5-5.1); Total Protein 5.9 g/dL (6.3-8.2)
[2017-12-17] MEDS ORDERED: Nitrostat 0.4 MG Tablet SL PRN (07:14)
[2017-12-17] MEDS ORDERED: Zaroxolyn 2.5 MG PO PRN (07:14)
[2017-12-17] MEDS ORDERED: [UNRECOGNIZED DRUG - REMARK] PO SCH (07:15)
[2017-12-17] MEDS: Sodium Chloride 0.9% 1000 ML 1,000 ML IV SCH (08:13)
[2017-12-17 08:28] VITALS: BP 122/60; PULSE 80
--- NOTE | 2017-12-17 08:30 | XRAY ---
Indication: Confusion and fatigue. Multiple contiguous axial images obtained through the head without contrast. Comparison: None. Normal appearing brain parenchyma and ventricles. Bony calvarium intact with diffuse thickening as seen in patients on chronic antiseizure medications. Mild hyperostosis frontalis interna. Visualized paranasal sinuses and mastoid air cells are clear. Impression: No acute intracranial abnormalities. CT DI 66.37
--- NOTE | 2017-12-17 08:32 | XRAY ---
Indication: Confusion and lethargy. Comparison: September 09, 2017. Portable chest underinflated today with now right base atelectasis versus infiltrate. Remaining heart and lungs normal with again incidental cardiac stent graft. Bony thorax intact again with minimal degenerative changes.
--- NOTE | 2017-12-17 09:03 | PCM.SSS ---
History of Present Illness - Chief Complaint Chief Complaint: Gait disturbance for 2-3 days History of Present Illness: .67-year-old white female who apparently is here because that she fell on Friday and has felt like she's been confused family states that she has had somewhat of a slurred speech she is walking with a shuffling gait he fell Friday 2 days ago Patient apparently has a history of chronic back pain family states that last Friday and Friday she was on cyclobenzaprine which was stopped by her family doctor. Then on Friday and Friday patient was on Embed She would this was stopped and then she was on tramadol Friday, Patient states she just doesn't feel right No fevers no vomiting - Review of Systems Constitutional: No Fever, No Chills Eyes: No Symptoms Ears, Nose, & Throat: No Symptoms Respiratory: No Cough, No Short Of Breath Cardiac: No Chest Pain, No Edema, No Syncope Abdominal/Gastrointestinal: No Abdominal Pain, No Nausea, No Vomiting, No Diarrhea Genitourinary Symptoms: No Dysuria Musculoskeletal: No Back Pain, No Neck Pain Skin: No Rash Neurological: No Dizziness, No Focal Weakness, No Sensory Changes Psychological: No Symptoms Endocrine: No Symptoms Hematologic/Lymphatic: No Symptoms Immunological/Allergic: No Symptoms Medications & Allergies Home Medications: Home Medication List Acetaminophen [Tylenol] 650 mg PO TID PRN PRN 08/20/17 [History Confirmed ] Bumetanide [Bumex] 2 mg PO DAILY 08/20/17 [History Confirmed 12/16/17] Calcium No.1/D3/B6/FA/B12/Aloe [Vitamin D3-Aloe 1,000 Unit Tab] 2 each PO UD [History Confirmed 12/16/17] Clonazepam [Klonopin] 0.25 mg PO QID 08/20/17 [History Confirmed 12/16/17] Clopidogrel Bisulfate 75 mg [PLAVIX 75 MG Tablet] 75 mg PO DAILY 08/20/17 [History Confirmed 12/16/17] Duloxetine HCl [Cymbalta] 60 mg PO DAILY 08/20/17 [History Confirmed 12/16/17] Gabapentin [Neurontin] 600 mg PO QID 08/20/17 [History Confirmed 12/16/17] Insulin Glargine,Hum.rec.anlog [Toujeo Solostar] 40 unit SQ DAILY 08/20/17 [ History Confirmed 12/16/17] Isosorbide Mononitrate 30 mg [Imdur 30 MG] 30 mg PO DAILY 08/20/17 [ History Confirmed 12/16/17] Loratadine 10 mg [Claritin 10 mg] 10 mg PO DAILY 08/20/17 [History Confirmed 12/16/17] Losartan Potassium [Cozaar] 100 mg PO DAILY 08/20/17 [History Confirmed 12/16/17 ] Magnesium 250 mg PO DAILY 08/20/17 [History Confirmed 12/16/17] Metolazone 2.5 mg [Zaroxolyn 2.5 MG] 2.5 mg PO DAILY PRN PRN 08/20/17 [ History Confirmed 12/16/17] Multivitamin [Multi-Vitamin Daily] 1 each PO DAILY 08/20/17 [History Confirmed 12/16/17] Nitroglycerin 0.4 mg Tablet [Nitrostat 0.4 MG Tablet] 0.4 mg SL Q5MIN PRN MR X 3 PRN 08/20/17 [History Confirmed 12/16/17] Potassium Chloride 10 Meq Tab* [Klor Con 10 MEQ] 10 meq PO 5XD 08/20/17 [ History Confirmed 12/16/17] Trazodone HCl 50 mg [Desyrel 50 mg] 75 mg PO HS 08/20/17 [History Confirmed 12/16/17] Glipizide Xl 10 mg [Glucotrol Xl 10 MG] 10 mg PO DAILY 12/16/17 [History Confirmed 12/16/17] Metoprolol Succinate 50 mg [Toprol Xl 50 MG] 50 mg PO HS 12/16/17 [ History Confirmed 12/16/17] Sennosides/Docusate Sodium [Senna-S Tablet] 1 each PO BID PRN 12/17/17 [History Confirmed 12/17/17] Allergies/Adverse Reactions: Allergies Allergy/AdvReac Type Severity Reaction Status Date / Time hydromorphone [From Dilaudid] Allergy Severe Difficulty Verified 08/20/17 23:48 Breathing morphine Allergy Severe Difficulty Verified 08/20/17 23:48 Breathing Sulfa (Sulfonamide Allergy Severe Verified 12/16/17 23:55 Antibiotics) ciprofloxacin [From Cipro] Allergy Verified 08/20/17 23:48 diphenhydramine Allergy Verified 08/20/17 23:48 [From Benadryl] meclofenamic acid Allergy Verified 08/20/17 23:48 [From Meclomen] naltrexone [From Embeda] AdvReac Verified 12/16/17 23:55 - Past Medical History Past Medical History: Yes Neurological History: Migraines ENT History: Cataracts Cardiac History: Coronary Artery Disease, Other Respiratory History: No Pertinent History Endocrine Medical History: Diabetes Type II Musculoskelatal History: Degenerative Disk Disease GI Medical History: Irritable Bowel History: No Pertinent History Pyscho-Social History: Anxiety, Depression Reproductive Disorders: No Pertinent History Comment: stage 4 renal disease,valve replacement. rt ankle,rt leg fx,cancer left breast, - Female History Are you now?: No - Past Surgical History Past Surgical History: Yes Neuro Surgical History: No Pertinent History Cardiac History: Other Respiratory Surgery: No Pertinent History GI Surgical History: Bowel Surgery, Cholecystectomy Genitourinary Surgical Hx: No Pertinent History Musculskeletal Surgical Hx: No Pertinent History Female Surgical History: No Pertinent History, Hysterectomy Other Surgical History: intestinal bypass and then reverse,sinus surgery times 2 roof/mouth then sinus surgery nose,left foot planters wart,right breast tumor, rt ankle/right leg sx after fx,left breast mastectomy with sentinel removed,6 marek steroid inj,t.a.v.r.-transcatheter aortic value replacement,lumbar laminectomy, steroid injections in back - Social History Smoking Status: Never smoker Exposure to second hand smoke: No Alcohol: None Drug Use: none - Physical Exam Vital Signs: Vital Signs - 24 hr Temp Pulse Resp BP BP Pulse Ox 12/17/17 08:00 80 18 122/60 92 L 12/17/17 04:00 98.4 F 87 14 102/50 92 L 12/16/17 23:38 97.9 F 83 18 116/59 96 12/16/17 22:21 74 18 111/70 96 12/16/17 21:38 97 12/16/17 20:40 78 18 114/81 97 12/16/17 19:13 79 118 H 98/48 97 12/16/17 19:08 80 12/16/17 17:41 98.3 F 80 16 95/50 92 L General Appearance: no apparent distress, alert Neurologic Exam: alert, oriented x 3, cooperative, normal mood/affect, nml cerebellar function, nml station & gait, sensation nml, No motor deficits Eye Exam: PERRL/EOMI, eyes nml inspection Ears, Nose, Throat Exam: normal ENT inspection, TMs normal, pharynx normal, moist mucous membranes Neck Exam: normal inspection, non-tender, supple, full range of motion Respiratory Exam: normal breath sounds, lungs clear, No respiratory distress Cardiovascular Exam: regular rate/rhythm, normal heart sounds, normal peripheral pulses Gastrointestinal/Abdomen Exam: soft, normal bowel sounds, No tenderness, No mass Back Exam: normal inspection, normal range of motion, No CVA tenderness, No vertebral tenderness Extremity Exam: normal inspection, normal range of motion, pelvis stable Skin Exam: normal color, warm, dry, No rash Lymphatic Exam: No adenopathy Results - Labs Lab/Micro Results: Accuchecks Date 12/17/17 Time 07:30 Accucheck Value: 141 Lab Results-Last 24 Hours 12/17/17 12/17/17 Range/Units 05:35 05:35 WBC 7.8 (4.0-10.5) K/mm3 RBC 3.16 L (4.1-5.4) M/mm3 Hgb 10.1 L (12.0-16.0) gm/dl Hct 28.7 L (35-47) % MCV 90.8 (78-100) fl MCH 31.9 (26-32) pg MCHC 35.2 (32-36) g/dl RDW 13.5 (11.5-14.0) % Plt Count 172 (150-450) K/mm3 MPV 10.2 H (6-9.5) fl Gran % 58.1 (36.0-66.0) % Eos # (Auto) 0.50 (0-0.5) Absolute Lymphs (auto) 1.90 (1.0-4.6) Absolute Monos (auto) 0.85 (0.0-1.3) Lymphocytes % 24.3 (24.0-44.0) % Monocytes % 10.9 (0.0-12.0) % Eosinophils % 6.4 H (0.00-5.0) % Basophils % 0.3 (0.0-0.4) % Absolute Granulocytes 4.54 (1.4-6.9) Basophils # 0.02 (0-0.4) Sodium 126 L (137-145) mmol/L Potassium 3.2 L (3.5-5.1) mmol/L Chloride 88 L (98-107) mmol/L Carbon Dioxide 32 H (22-30) mmol/L Anion Gap 9.3 (5-15) MEQ/L BUN 54 H (7-17) mg/dL Creatinine 1.84 H (0.52-1.04) mg/dL Estimated GFR 29.0 ML/MIN Glucose 141 H (74-106) mg/dL Calcium 8.6 (8.4-10.2) mg/dL Total Bilirubin 0.30 (0.2-1.3) mg/dL AST 37 H (14-36) U/L ALT 22 (0-35) U/L Alkaline Phosphatase 99 (38-126) U/L Serum Total Protein 5.9 L (6.3-8.2) g/dL Albumin 3.1 L (3.5-5.0) g/dL Accuchecks Date 12/17/17 Time 07:30 Accucheck Value: 141 Assessment/Plan (1) Gait disturbance Current Visit: Yes Status: Resolved Code(s): R26.9 - UNSPECIFIED ABNORMALITIES OF GAIT AND MOBILITY (2) Hyponatremia Current Visit: Yes Status: Acute Assessment & Plan: improving Code(s): E87.1 - HYPO-OSMOLALITY AND HYPONATREMIA Hospital Summary - Hospital Course Hospital Course: Chief Complaint Diagnosis Gait disturbance for 2-3 days Allergies Allergy/AdvReac Type Severity Reaction Status Date / Time hydromorphone [From Dilaudid] Allergy Severe Difficulty Verified 08/20/17 23:48 Breathing morphine Allergy Severe Difficulty Verified 08/20/17 23:48 Breathing Sulfa (Sulfonamide Allergy Severe Verified 12/16/17 23:55 Antibiotics) ciprofloxacin [From Cipro] Allergy Verified 08/20/17 23:48 diphenhydramine Allergy Verified 08/20/17 23:48 [From Benadryl] meclofenamic acid Allergy Verified 08/20/17 23:48 [From Meclomen] naltrexone [From Embeda] AdvReac Verified 12/16/17 23:55 Vital Signs (Last 24 hours) Temp Pulse Resp BP BP Pulse Ox 12/17/17 08:00 80 18 122/60 92 L 12/17/17 04:00 98.4 F 87 14 102/50 92 L 12/16/17 23:38 97.9 F 83 18 116/59 96 12/16/17 22:21 74 18 111/70 96 12/16/17 21:38 97 12/16/17 20:40 78 18 114/81 97 12/16/17 19:13 79 118 H 98/48 97 12/16/17 19:08 80 12/16/17 17:41 98.3 F 80 16 95/50 92 L Home Medications Medication Instructions Recorded Confirmed Last Taken Type Glipizide Xl 10 mg [Glucotrol 10 mg PO DAILY 12/16/17 12/16/17 12/16/17 09: 00 History Xl 10 MG] Metoprolol Succinate 50 mg 50 mg PO HS 12/16/17 12/16/17 12/15/17 22:00 History [Toprol Xl 50 MG] Sennosides/Docusate Sodium 1 each PO BID PRN 12/17/17 12/17/17 12/15/17 History [Senna-S Tablet] Current Medications Generic Name Dose Route Start Last Admin Trade Name Freq PRN Reason Stop Dose Admin Acetaminophen 650 mg 12/17/17 01:04 Tylenol 325 Mg PO 01/16/18 01:03 TID PRN PRN PAIN AND/OR FEVER Acetaminophen 650 mg 12/17/17 07:14 Tylenol 325 Mg PO 01/16/18 07:13 TID PRN PRN PAIN Bumetanide 2 mg 12/17/17 10:00 Bumex 1 Mg PO 01/16/18 09:59 DAILY CESAR Calcium Carbonate 2 tab 12/17/17 10:00 Calcium 500mg W/Vit D Tablet PO 01/16/18 09:59 [id number]@1000 CESAR Clonazepam 0.25 mg 12/17/17 01:30 12/17/17 01:21 Klonopin 0.5 Mg PO 01/16/18 01:29 0.25 mg QID CESAR Administration Clonazepam 0.25 mg 12/17/17 10:00 Klonopin 0.5 Mg PO 01/16/18 09:59 QID CESAR Clopidogrel Bisulfate 75 mg 12/17/17 10:00 Plavix 75 Mg Tablet PO 01/16/18 09:59 DAILY CESAR Gabapentin 600 mg 12/17/17 01:30 12/17/17 01:22 Neurontin 300 Mg PO 01/16/18 01:29 600 mg QID CESAR Administration Gabapentin 600 mg 12/17/17 10:00 Neurontin 300 Mg PO 01/16/18 09:59 QID CESAR Glipizide 10 mg 12/17/17 10:00 Glucotrol Xl 10 Mg PO 01/16/18 09:59 DAILY CESAR Sodium Chloride 1,000 mls @ 100 mls/hr 12/16/17 22:26 12/17/17 08:13 Sodium Chloride 0.9% 1000 Ml IV 01/15/18 22:25 100 mls/hr .Q10H CESAR Administration Insulin Glargine 32 unit 12/17/17 10:00 Lantus Insulin SQ 01/16/18 09:59 DAILY CESAR Isosorbide Mononitrate 30 mg 12/17/17 10:00 Imdur 30 Mg PO 01/16/18 09:59 DAILY CESAR Loratadine 10 mg 12/17/17 10:00 Claritin 10 Mg PO 01/16/18 09:59 DAILY CESAR Losartan Potassium 100 mg 12/17/17 10:00 Cozaar 50 Mg PO 01/16/18 09:59 DAILY CESAR Magnesium Oxide 200 mg 12/17/17 10:00 Mag-Ox 400 PO 01/16/18 09:59 DAILY CESAR Metolazone 2.5 mg 12/17/17 07:14 Zaroxolyn 2.5 Mg PO 01/16/18 07:13 DAILY PRN PRN Fluid retention Metoprolol Succinate 50 mg 12/17/17 22:00 12/17/17 01:22 Toprol Xl 50 Mg PO 01/16/18 21:59 50 mg HS CESAR Administration Metoprolol Succinate 50 mg 12/17/17 22:00 Toprol Xl 50 Mg PO 01/16/18 21:59 HS CESAR Multivitamins Therapeutic 1 tab 12/17/17 10:00 Theragran Multivitamin PO 01/16/18 09:59 DAILY CESAR Nitroglycerin 0.4 mg 12/17/17 07:14 Nitrostat 0.4 Mg Tablet SL 01/16/18 07:13 Q5MIN PRN MR X 3 PRN PAIN Patient Own Med ( 0 each 12/17/17 10:00 Cymbalta 60mg) PO 01/16/18 09:59 DAILY CESAR Potassium Chloride 10 meq 12/17/17 11:00 Klor Con 10 Meq PO 01/16/18 10:59 5XD CESAR Senna/Docusate Sodium 1 udtab 12/17/17 01:02 Senokot-S Tablet PO 01/16/18 01:14 BID PRN PRN CONSTIPATION Senna/Docusate Sodium 1 udtab 12/17/17 07:14 Senokot-S Tablet PO 01/16/18 07:13 BID PRN PRN CONSTIPATION Trazodone HCl 75 mg 12/17/17 22:00 Desyrel 50 Mg PO 01/16/18 21:59 HS [facility] Discontinued Medications Generic Name Dose Route Start Last Admin Trade Name Freq PRN Reason Stop Dose Admin Sodium Chloride 1,000 mls @ 999 mls/hr 12/16/17 18:41 12/16/17 20:42 Sodium Chloride 0.9% 1000 Ml IV 12/16/17 19:41 Infused .Q1H1M STA Infusion Sodium Chloride Confirm 12/16/17 19:08 Sodium Chloride 0.9% 1000 Ml Administered 12/16/17 19:09 Dose 1,000 mls @ ud .ROUTE .STK-MED ONE Metoprolol Succinate Confirm 12/17/17 01:14 Toprol Xl 50 Mg Administered 12/17/17 01:15 Dose 50 mg PO .STK-MED ONE Potassium Chloride 10 meq 12/17/17 01:01 12/17/17 01:21 Klor Con 10 Meq PO 12/17/17 01:02 10 meq ONCE ONE Administration Trazodone HCl 75 mg 12/17/17 01:30 12/17/17 01:21 Desyrel 150 Mg PO 12/17/17 01:31 75 mg ONCE ONE Administration Intake & Output (Last 24 hours) 12/14/17 12/15/17 12/16/17 12/17/17 11:59 11:59 11:59 11:59 Intake Total 960 Balance 960 Weight 118 kg Laboratory Results (Last 24 hours) 12/17/17 12/17/17 12/16/17 05:35 05:35 20:00 WBC 7.8 RBC 3.16 L Hgb 10.1 L Hct 28.7 L MCV 90.8 MCH 31.9 MCHC 35.2 RDW 13.5 Plt Count 172 MPV 10.2 H Gran % 58.1 Eos # (Auto) 0.50 Absolute Lymphs (auto) 1.90 Absolute Monos (auto) 0.85 Lymphocytes % 24.3 Monocytes % 10.9 Eosinophils % 6.4 H Basophils % 0.3 Absolute Granulocytes 4.54 Basophils # 0.02 PT INR Sodium 126 L Potassium 3.2 L Chloride 88 L Carbon Dioxide 32 H Anion Gap 9.3 BUN 54 H Creatinine 1.84 H Estimated GFR 29.0 Glucose 141 H Lactic Acid Calcium 8.6 Total Bilirubin 0.30 AST 37 H ALT 22 Alkaline Phosphatase 99 Troponin I Serum Total Protein 5.9 L Albumin 3.1 L Ur Collection Type CLEAN CATCH Urine Color YELLOW Urine Appearance CLEAR Urine pH 5.0 Ur Specific [place] 1.010 Urine Protein NEGATIVE Urine Ketones NEGATIVE Urine Blood NEGATIVE Urine Nitrite NEGATIVE Urine Bilirubin NEGATIVE Urine Urobilinogen NORMAL Ur Leukocyte Esterase NEGATIVE Urine Culture Reflexed NO Urine Glucose NEGATIVE Specimen Received 12/16/17199912/16/17 12/16/17 12/16/17 18:50 18:50 18:50 WBC RBC Hgb Hct MCV MCH MCHC RDW Plt Count MPV Gran % Eos # (Auto) Absolute Lymphs (auto) Absolute Monos (auto) Lymphocytes % Monocytes % Eosinophils % Basophils % Absolute Granulocytes Basophils # PT 11.5 INR 0.99 Sodium 124 L Potassium 3.6 Chloride 82 L Carbon Dioxide 34 H Anion Gap 11.3 BUN 58 H Creatinine 2.21 H Estimated GFR 23.5 Glucose 120 H Lactic Acid Calcium 9.2 Total Bilirubin 0.40 AST 43 H ALT 23 Alkaline Phosphatase 116 Troponin I 0.020 Serum Total Protein 6.0 L Albumin 3.4 L Ur Collection Type Urine Color Urine Appearance Urine pH Ur Specific [place] Urine Protein Urine Ketones Urine Blood Urine Nitrite Urine Bilirubin Urine Urobilinogen Ur Leukocyte Esterase Urine Culture Reflexed Urine Glucose Specimen Received 12/16/17 12/16/17 18:50 18:39 WBC 8.6 RBC 3.33 L Hgb 10.8 L Hct 30.4 L MCV 91.3 MCH 32.4 H MCHC 35.5 RDW 13.7 Plt Count 217 MPV 10.4 H Gran % 59.0 Eos # (Auto) 0.54 H Absolute Lymphs (auto) 1.96 Absolute Monos (auto) 1.00 Lymphocytes % 22.8 L Monocytes % 11.6 Eosinophils % 6.3 H Basophils % 0.3 Absolute Granulocytes 5.08 Basophils # 0.03 PT INR Sodium Potassium Chloride Carbon Dioxide Anion Gap BUN Creatinine Estimated GFR Glucose Lactic Acid 1.1 Calcium Total Bilirubin AST ALT Alkaline Phosphatase Troponin I Serum Total Protein Albumin Ur Collection Type Urine Color Urine Appearance Urine pH Ur Specific [place] Urine Protein Urine Ketones Urine Blood Urine Nitrite Urine Bilirubin Urine Urobilinogen Ur Leukocyte Esterase Urine Culture Reflexed Urine Glucose Specimen Received Orders (Last 24 hours) Category Date Time Status Bedrest with BRP/BSC ROUTINE Activity 12/16/17 22:26 Active ACCUCHECK [Accucheck] ACHS Care 12/17/17 01:33 Active Call Admit Doctor for Orders ON ADMISSION Care 12/16/17 22:26 Active Code Status Order ROUTINE Care 12/16/17 22:26 Active IV Care Q6H Care 12/16/17 22:26 Active IV Insertion STAT Care 12/16/17 18:39 Completed Neuro Checks Q4H Care 12/16/17 22:26 Active Orthostatic Vital Signs STAT Care 12/16/17 18:[address] in Observation ROUTINE Care 12/16/17 22:17 Active Telemetry Q4H Care 12/16/17 22:26 Active Weight,Daily 0600 Care 12/16/17 22:26 Active [place] Architect/Discharge Plan Cons 12/17/17 00:33 Active Nutritional Admission Screen Diet 12/17/17 00:33 Active CHEST 1 VIEW (PORTABLE) Stat Exams 12/16/17 18:38 Completed HEAD WITHOUT CONTRAST [CT] Stat Exams 12/16/17 18:35 Completed CBC W DIFF AM.LAB Lab 12/17/17 05:35 Completed CBC W DIFF Stat Lab 12/16/17 18:50 Completed CMP AM.LAB Lab 12/17/17 05:35 Completed CMP Stat Lab 12/16/17 18:50 Completed Lactic Acid Stat Lab 12/16/17 18:39 Completed PROTIME WITH INR Stat Lab 12/16/17 18:50 Completed TROPONIN Q3H Lab 12/16/17 18:50 Completed UA W/RFX UR CULTURE Stat Lab 12/16/17 20:00 Completed Acetaminophen 325 mg [Tylenol 325 mg] Med 12/17/17 01:04 Active 650 mg PO TID PRN PRN Acetaminophen 325 mg [Tylenol 325 mg] Med 12/17/17 07:14 Active 650 mg PO TID PRN PRN Bumetanide 1 mg [Bumex 1 mg] Med 12/17/17 10:00 Active 2 mg PO DAILY Calcium Carb/Vitamin D 500 mg* [Calcium 500MG W/Vit D Med 12/17/17 10:00 Active Tablet] 2 tab PO [id number] Clonazepam 0.5 mg [Klonopin 0.5 MG] Med 12/17/17 01:30 Active 0.25 mg PO QID Clonazepam 0.5 mg [Klonopin 0.5 MG] Med 12/17/17 10:00 Active 0.25 mg PO QID Clopidogrel Bisulfate 75 mg [PLAVIX 75 MG Tablet] Med 12/17/17 10:00 Active 75 mg PO DAILY Gabapentin 300 mg [Neurontin 300 mg] Med 12/17/17 01:30 Active 600 mg PO QID Gabapentin 300 mg [Neurontin 300 mg] Med 12/17/17 10:00 Active 600 mg PO QID Glipizide Xl 10 mg [Glucotrol Xl 10 MG] Med 12/17/17 10:00 Active 10 mg PO DAILY Insulin Glargine [Lantus Insulin] Med 12/17/17 10:00 Active 32 unit SQ DAILY Isosorbide Mononitrate 30 mg [Imdur 30 MG] Med 12/17/17 10:00 Active 30 mg PO DAILY Loratadine 10 mg [Claritin 10 mg] Med 12/17/17 10:00 Active 10 mg PO DAILY Losartan Potassium 50 mg [Cozaar 50 MG] Med 12/17/17 10:00 Active 100 mg PO DAILY Magnesium Oxide 400 mg [Mag-Ox 400] Med 12/17/17 10:00 Active 200 mg PO DAILY Metolazone 2.5 mg [Zaroxolyn 2.5 MG] Med 12/17/17 07:14 Active 2.5 mg PO DAILY PRN PRN Metoprolol Succinate 50 mg [Toprol Xl 50 MG] Med 12/17/17 01:14 Discontinued 50 mg PO .STK-MED ONE Metoprolol Succinate 50 mg [Toprol Xl 50 MG] Med 12/17/17 22:00 Active 50 mg PO HS Metoprolol Succinate 50 mg [Toprol Xl 50 MG] Med 12/17/17 22:00 Active 50 mg PO HS Multivitamins,Therapeutic Tab* [Theragran Multivitamin* Med 12/17/17 10:00 Active ] 1 tab PO DAILY NaCl 0.9% 1000 ml [Sodium Chloride 0.9% 1000 ML] 1,000 Med 12/16/17 19:08 Discontinued ml .ROUTE UD NaCl 0.9% 1000 ml [Sodium Chloride 0.9% 1000 ML] 1,000 Med 12/16/17 22:26 Active ml IV 100 mls/hr NaCl 0.9% 1000 ml [Sodium Chloride 0.9% 1000 ML] 1,000 Med 12/16/17 18:41 Discontinued ml IV 999 mls/hr Nitroglycerin 0.4 mg Tablet [Nitrostat 0.4 MG Tablet Med 12/17/17 07:14 Active ] 0.4 mg SL Q5MIN PRN MR X 3 PRN Patient Own Med [Patient Own Medication] Med 12/17/17 10:00 Active 0 each PO DAILY Potassium Chloride 10 Meq Tab* [Klor Con 10 MEQ] Med 12/17/17 11:00 Active 10 meq PO 5XD Potassium Chloride 10 Meq Tab* [Klor Con 10 MEQ] Med 12/17/17 01:01 Discontinued 10 meq PO ONCE ONE Senna/Docusate Sodium Tab [Senokot-S Tablet] Med 12/17/17 01:02 Active 1 udtab PO BID PRN PRN Senna/Docusate Sodium Tab [Senokot-S Tablet] Med 12/17/17 07:14 Active 1 udtab PO BID PRN PRN Trazodone HCl 150 mg [Desyrel 150 MG] Med 12/17/17 01:30 Discontinued 75 mg PO ONCE ONE Trazodone HCl 50 mg [Desyrel 50 mg] Med 12/17/17 22:00 Active 75 mg PO HS EKG STAT RT 12/16/17 18:39 Completed Patient Care Notes (Last 24 hours) 12/16/17 23:00 (created 12/17/17 07:33) Nursing Note by Douglas Do Patient states she started taking Flexeril 10 mg TID last Fri for back pain. Took this on Fri, , Fri, then stopped due to side effects. She was then switched to Embeda 30-1.2 mg BID, which she took Fri, Fri, Fri, then stopped due to extreme constipation. She was then switched to Tramadol 50 mg q6h, which she only took one tablet on Friday. states all the symptoms of confusion, swallowing difficulty, and gait disturbance started after these medications were started. Initialized on 12/17/17 07:33 - END OF NOTE - Vitals & Intake/Output Vital Signs: Vital Signs Temperature 98.4 F 12/17/17 04:00 Pulse Rate 80 12/17/17 08:00 Respiratory Rate 12/17/17 08:00 Blood Pressure 122/60 12/17/17 08:00 O2 Sat by Pulse Oximetry 92 L 12/17/17 08:00 Intake & Output: Intake & Output 12/14/17 12/15/17 12/16/17 12/17/17 11:59 11:59 11:59 11:59 Intake Total 960 Balance 960 Weight 118 kg - Lab Result Diagrams: 12/17/17 05:35 12/17/17 05:35 Lab Results-Last 24 Hrs: Accuchecks Date 12/17/17 Time 07:30 Accucheck Value: 141 Lab Results-Last 24 Hours 12/17/17 12/17/17 Range/Units 05:35 05:35 WBC 7.8 (4.0-10.5) K/mm3 RBC 3.16 L (4.1-5.4) M/mm3 Hgb 10.1 L (12.0-16.0) gm/dl Hct 28.7 L (35-47) % MCV 90.8 (78-100) fl MCH 31.9 (26-32) pg MCHC 35.2 (32-36) g/dl RDW 13.5 (11.5-14.0) % Plt Count 172 (150-450) K/mm3 MPV 10.2 H (6-9.5) fl Gran % 58.1 (36.0-66.0) % Eos # (Auto) 0.50 (0-0.5) Absolute Lymphs (auto) 1.90 (1.0-4.6) Absolute Monos (auto) 0.85 (0.0-1.3) Lymphocytes % 24.3 (24.0-44.0) % Monocytes % 10.9 (0.0-12.0) % Eosinophils % 6.4 H (0.00-5.0) % Basophils % 0.3 (0.0-0.4) % Absolute Granulocytes 4.54 (1.4-6.9) Basophils # 0.02 (0-0.4) Sodium 126 L (137-145) mmol/L Potassium 3.2 L (3.5-5.1) mmol/L Chloride 88 L (98-107) mmol/L Carbon Dioxide 32 H (22-30) mmol/L Anion Gap 9.3 (5-15) MEQ/L BUN 54 H (7-17) mg/dL Creatinine 1.84 H (0.52-1.04) mg/dL Estimated GFR 29.0 ML/MIN Glucose 141 H (74-106) mg/dL Calcium 8.6 (8.4-10.2) mg/dL Total Bilirubin 0.30 (0.2-1.3) mg/dL AST 37 H (14-36) U/L ALT 22 (0-35) U/L Alkaline Phosphatase 99 (38-126) U/L Serum Total Protein 5.9 L (6.3-8.2) g/dL Albumin 3.1 L (3.5-5.0) g/dL Micro Results-Entire Visit: Accuchecks Date 12/17/17 Time 07:30 Accucheck Value: 141 - Discharge Discharge Date: 12/17/17 Disposition: Home, Self-Care Condition: Fair Prescriptions: Continue Magnesium 250 mg PO DAILY Acetaminophen [Tylenol] 650 mg PO TID PRN PRN PRN Reason: Pain Loratadine 10 mg [Claritin 10 mg] 10 mg PO DAILY Multivitamin [Multi-Vitamin Daily] 1 each PO DAILY Trazodone HCl 50 mg [Desyrel 50 mg] 75 mg PO HS Duloxetine HCl [Cymbalta] 60 mg PO DAILY Clopidogrel Bisulfate 75 mg [PLAVIX 75 MG Tablet] 75 mg PO DAILY Clonazepam [Klonopin] 0.25 mg PO QID Gabapentin [Neurontin] 600 mg PO QID Losartan Potassium [Cozaar] 100 mg PO DAILY Potassium Chloride 10 Meq Tab* [Klor Con 10 MEQ] 10 meq PO 5XD Isosorbide Mononitrate 30 mg [Imdur 30 MG] 30 mg PO DAILY Bumetanide [Bumex] 2 mg PO DAILY Metolazone 2.5 mg [Zaroxolyn 2.5 MG] 2.5 mg PO DAILY PRN PRN PRN Reason: Fluid retention Insulin Glargine,Hum.rec.anlog [Torafael Sainz] 40 unit SQ DAILY Nitroglycerin 0.4 mg Tablet [Nitrostat 0.4 MG Tablet] 0.4 mg SL Q5MIN PRN MR X 3 PRN PRN Reason: Pain Calcium No.1/D3/B6/FA/B12/Aloe [Vitamin D3-Aloe 1,000 Unit Tab] 2 each PO UD Glipizide Xl 10 mg [Glucotrol Xl 10 MG] 10 mg PO DAILY Metoprolol Succinate 50 mg [Toprol Xl 50 MG] 50 mg PO HS Sennosides/Docusate Sodium [Senna-S Tablet] 1 each PO BID PRN PRN Reason: Constipation Follow up with: SONIA MARTIN MD [Primary Care Provider] - 1 Week
[2017-12-17] MEDS ORDERED: NON-FORMULARY ITEM (Multivitamin [Multi-Vitamin Daily] 1 EACH) PO SCH (10:00)
[2017-12-17] MEDS ORDERED: THERAGRAN MULTIVITAMIN PO SCH (10:00)
[2017-12-17] MEDS ORDERED: PLAVIX 75 MG Tablet PO SCH (10:00)
[2017-12-17] MEDS ORDERED: INSULIN GLARGINE HUM REC ANLOG 40 UNIT SQ SCH (10:00)
[2017-12-17] MEDS ORDERED: MAG-OX 400 PO SCH (10:00)
[2017-12-17] MEDS ORDERED: Glucotrol Xl 10 MG PO SCH (10:00)
[2017-12-17] MEDS ORDERED: PATIENT OWN MEDICATION PO SCH (10:00)
[2017-12-17] MEDS ORDERED: Cozaar 50 MG PO SCH (10:00)
[2017-12-17] MEDS ORDERED: NON-FORMULARY ITEM (Gabapentin [Neurontin] 600 MG) PO SCH (10:00)
[2017-12-17] MEDS ORDERED: Imdur 30 MG PO SCH (10:00)
[2017-12-17] MEDS ORDERED: Lantus Insulin SQ SCH (10:00)
[2017-12-17] MEDS ORDERED: CLARITIN 10 MG PO SCH (10:00)
[2017-12-17] MEDS ORDERED: CLONAZEPAM 0.25 MG PO SCH (10:00)
[2017-12-17] MEDS ORDERED: NON-FORMULARY ITEM (Duloxetine Hcl [Cymbalta] 60 MG) PO SCH (10:00)
[2017-12-17] MEDS ORDERED: NON-FORMULARY ITEM (Losartan Potassium [Cozaar] 100 MG) PO SCH (10:00)
[2017-12-17] MEDS ORDERED: BUMEX 1 MG PO SCH (10:00)
[2017-12-17] MEDS ORDERED: NON-FORMULARY ITEM (Bumetanide [Bumex] 2 MG) PO SCH (10:00)
[2017-12-17] MEDS ORDERED: NON-FORMULARY ITEM (Magnesium [Magnesium] 250 MG) PO SCH (10:00)
[2017-12-17] MEDS ORDERED: Calcium 500MG W/Vit D Tablet PO SCH (10:00)
[2017-12-17] MEDS ORDERED: Klor Con 10 MEQ PO SCH (11:00)
[2017-12-17] MEDS ORDERED: DESYREL 50 MG PO SCH (22:00)
[2017-12-17] MEDS ORDERED: Toprol Xl 50 MG PO SCH ×2 (22:00)
== END 2017-12-17 11:15 | disposition home or self-care (01) ==
LOC: ED 17:39 → MED SURG 22:17
PROVIDERS: ADMIT General Practice; ATTEND General Practice
DX: R26.9 Unspecified abnormalities of gait and mobility (principal); E87.1 Hypo-osmolality and hyponatremia
CPT/HCPCS: 36000; 36415; 70450; 71045; 80053; 81002; 83605; 84484; 85025; 85610; 93268; 96360; 99284; A9270-GY; G0378

== ENCOUNTER 2018-08-14 18:04 | Emergency (ER) | payer MEDICARE ==
--- NOTE | 2018-08-14 20:11 | ERPHSYRPT ---
- History of Present Illness Time Seen by Provider: 08/14/18 20:07 Source: patient, family Exam Limitations: no limitations Patient Subjective Stated Complaint: fell yesterday and is extremely weak Triage Nursing Assessment: Pt c/o of generalized weakness that has gotten worse over the past 2 weeks, pt fell yesterday and hurt her lower medial back, vitals wnl, edema to upper and lower extremities, pulses normal, stage 4 renal failure , does not do dialysis, rates pain in back as a 3/10, states that she just wants to sleep Physician History: The patient is a 68-year-old female with her complaining of increasing weakness for the past 3-4 days. Her legs are "wobbly". She is lightheaded when she stands. He vomited one time this morning. She denies abdominal pain. She denies chest pain. She talked to her wet pour mixer, Dr. Ramos, today. He advised her to come to the ER for an electrolyte check. Her local doctor is Dr. Martin. Her past medical history is significant for stage IV renal disease, HTN, DM, high cholesterol, CAD, and cardiac stent placement. She is unsure if she has CHF. Timing/Duration: day(s) (4), gradual onset, worse Severity: moderate Modifying Factors: Improves With: nothing Associated Symptoms: vomiting, malaise, weakness Allergies/Adverse Reactions: hydromorphone [From Dilaudid] Allergy (Severe, Verified 08/14/18 18:40) Difficulty Breathing morphine Allergy (Severe, Verified 08/14/18 18:40) Difficulty Breathing Sulfa (Sulfonamide Antibiotics) Allergy (Severe, Verified 08/14/18 18:40) Extreme constipation ciprofloxacin [From Cipro] Allergy (Verified 08/14/18 18:40) diphenhydramine [From Benadryl] Allergy (Verified 08/14/18 18:40) meclofenamic acid [From Meclomen] Allergy (Verified 08/14/18 18:40) naltrexone [From Embeda] Adverse Reaction (Verified 08/14/18 18:40) Home Medications: Acetaminophen [Tylenol] 650 mg PO TID PRN PRN 08/20/17 [History] Bumetanide [Bumex] 2 mg PO DAILY 08/20/17 [History] Calcium No.1/D3/B6/FA/B12/Aloe [Vitamin D3-Aloe 1,000 Unit Tab] 2 each PO UD [History] Clonazepam [Klonopin] 0.25 mg PO QID 08/20/17 [History] Clopidogrel Bisulfate 75 mg [PLAVIX 75 MG Tablet] 75 mg PO DAILY 08/20/17 [History] Duloxetine HCl [Cymbalta] 60 mg PO DAILY 08/20/17 [History] Gabapentin [Neurontin] 600 mg PO QID 08/20/17 [History] Insulin Glargine,Hum.rec.anlog [Toujeo Solostar] 55 unit SQ DAILY 08/20/17 [ History] Isosorbide Mononitrate 30 mg [Imdur 30 MG] 30 mg PO DAILY 08/20/17 [History ] Loratadine 10 mg [Claritin 10 mg] 10 mg PO DAILY 08/20/17 [History] Losartan Potassium [Cozaar] 50 mg PO DAILY 08/20/17 [History] Metolazone 2.5 mg [Zaroxolyn 2.5 MG] 2.5 mg PO DAILY PRN PRN 08/20/17 [ History] Multivitamin [Multi-Vitamin Daily] 1 each PO DAILY 08/20/17 [History] Nitroglycerin 0.4 mg Tablet [Nitrostat 0.4 MG Tablet] 0.4 mg SL Q5MIN PRN MR X 3 PRN 08/20/17 [History] Potassium Chloride 10 Meq Tab* [Klor Con 10 MEQ] 10 meq PO QID 08/20/17 [ History] Trazodone HCl 50 mg [Desyrel 50 mg] 75 mg PO HS 08/20/17 [History] Glipizide Xl 10 mg [Glucotrol Xl 10 MG] 10 mg PO DAILY 12/16/17 [History] Metoprolol Succinate 50 mg [Toprol Xl 50 MG] 50 mg PO HS 12/16/17 [History ] Hx Tetanus, Diphtheria Vaccination/Date Given: Yes Hx Influenza Vaccination/Date Given: Yes Hx Pneumococcal Vaccination/Date Given: Yes - Review of Systems Constitutional: Weakness Eyes: No Symptoms Ears, Nose, & Throat: No Symptoms Cardiac: No Chest Pain, No Edema, No Syncope Abdominal/Gastrointestinal: Vomiting, No Abdominal Pain, No Nausea, No Diarrhea Genitourinary Symptoms: No Dysuria Musculoskeletal: No Back Pain, No Neck Pain Skin: No Rash Neurological: No Dizziness, No Focal Weakness, No Sensory Changes Psychological: No Symptoms Endocrine: No Symptoms Hematologic/Lymphatic: No Symptoms Immunological/Allergic: No Symptoms All Other Systems: Reviewed and Negative - Past Medical History Pertinent Past Medical History: Yes Neurological History: Migraines ENT History: Cataracts Cardiac History: Coronary Artery Disease, Other Respiratory History: No Pertinent History Endocrine Medical History: Diabetes Type II Musculoskeletal History: Degenerative Disk Disease GI Medical History: Irritable Bowel History: No Pertinent History Psycho-Social History: Anxiety, Depression Female Reproductive Disorders: No Pertinent History Other Medical History: stage 4 renal disease,valve replacement. rt ankle,rt leg fx,cancer left breast, - Past Surgical History Past Surgical History: Yes Neuro Surgical History: No Pertinent History Cardiac: Other Respiratory: No Pertinent History Gastrointestinal: Bowel Surgery, Cholecystectomy Genitourinary: No Pertinent History Musculoskeletal: No Pertinent History Female Surgical History: No Pertinent History, Hysterectomy Other Surgical History: intestinal bypass and then reverse,sinus surgery times 2 roof/mouth then sinus surgery nose,left foot planters wart,right breast tumor, rt ankle/right leg sx after fx,left breast mastectomy with sentinel removed,6 marek steroid inj,t.a.v.r.-transcatheter aortic value replacement,lumbar laminectomy, steroid injections in back - Social History Smoking Status: Never smoker Exposure to second hand smoke: No Drug Use: none Patient Lives Alone: No - Female History Hx Now: No - Nursing Vital Signs Nursing Vital Signs: Initial Vital Signs Temperature 97.8 F 08/14/18 18:19 Pulse Rate 80 08/14/18 18:19 Respiratory Rate 14 08/14/18 18:19 Blood Pressure 137/67 08/14/18 18:19 O2 Sat by Pulse Oximetry 96 08/14/18 18:19 Pain Scale Pain Intensity 4 - Physical Exam General Appearance: moderate distress, obese Eye Exam: PERRL/EOMI, eyes nml inspection Ears, Nose, Throat Exam: normal ENT inspection, TMs normal, pharynx normal, moist mucous membranes Neck Exam: normal inspection, non-tender, supple, full range of motion Respiratory Exam: normal breath sounds, lungs clear, No respiratory distress Cardiovascular Exam: regular rate/rhythm, normal heart sounds, normal peripheral pulses Gastrointestinal/Abdomen Exam: soft, normal bowel sounds, No tenderness, No mass Pelvic Exam: not done Rectal Exam: not done Back Exam: normal inspection, normal range of motion, No CVA tenderness, No vertebral tenderness Extremity Exam: normal inspection Neurologic Exam: alert, oriented x 3, cooperative, normal mood/affect, nml cerebellar function, nml station & gait, sensation nml, No motor deficits Skin Exam: normal color, warm, dry, No rash Lymphatic Exam: No adenopathy SpO2 Interpretation: normal SpO2: 96 O2 Delivery: Room Air - Course EKG Interpreted by Me: RATE, Sinus Rhythm, NORMAL AXIS, NORMAL INTERVALS, Right Bundle Branch Block, NORMAL ST-T, Other (comp ESKG 12/16/17.) - Radiology Exams Chest X-ray Interpretation: Interpreted by me, Negative (comp 1V chest 12/16/17.) Ordered Tests: Active Orders 24 hr Category Date Time Status Emergency Telecommunications Dispatcher STAT Care 08/14/18 20:13 Active Clean Catch Urine Specimen STAT Care 08/14/18 20:11 Active EKG-ER Only STAT Care 08/14/18 20:11 Active IV Insertion STAT Care 08/14/18 20:11 Active Pulse Oximetry (ED) STAT Care 08/14/18 20:11 Active CHEST 1 VIEW (PORTABLE) Stat Exams 08/14/18 20:12 Taken CBC W DIFF Stat Lab 08/14/18 20:29 Completed CMP Stat Lab 08/14/18 20:29 Completed Lactic Acid Stat Lab 08/14/18 20:26 Completed Lactic Acid Stat Lab 08/14/18 22:30 Ordered NT PRO BNP Stat Lab 08/14/18 20:29 Completed TROPONIN Q3H Lab 08/14/18 20:29 Completed TROPONIN Q3H Lab 08/14/18 23:15 Ordered TROPONIN Q3H Lab 08/15/18 02:15 Ordered TROPONIN Q3H Lab 08/15/18 05:15 Ordered TROPONIN Q3H Lab 08/15/18 08:15 Ordered UA W/RFX UR CULTURE Stat Lab 08/14/18 20:44 Completed Medication Summary Generic Name Dose Route Start Last Admin Trade Name Freq PRN Reason Stop Dose Admin Potassium Chloride 20 meq in 100 mls @ 50 mls/hr 08/14/18 20:51 08/14/18 21: 08 Potassium Chloride 20 Meq In Water 100ml IV 08/14/18 22:50 50 mls/hr STAT ONE Administration Sodium Chloride 500 mls @ 50 mls/hr 08/14/18 21:00 08/14/18 21:08 Sodium Chloride 0.9% 500 Ml IV 08/14/18 23:30 50 mls/hr .Q10H CESAR Administration Discontinued Medications Generic Name Dose Route Start Last Admin Trade Name Chapo PRN Reason Stop Dose Admin Potassium Chloride Confirm 08/14/18 20:56 Potassium Chloride 20 Meq In Water 100ml Administered 08/14/18 20:57 Dose 100 mls @ ud IV .STK-MED ONE Potassium Chloride 40 meq 08/14/18 20:52 08/14/18 21:04 Klor Con 10 Meq PO 08/14/18 20:53 40 meq STAT ONE Administration Potassium Chloride Confirm 08/14/18 20:56 Klor Con 10 Meq Administered 08/14/18 20:57 Dose 40 meq PO .STK-MED ONE Lab/Rad Data: Laboratory Result Diagrams 08/14/18 20:29 08/14/18 20:29 Laboratory Results 08/14/18 08/14/18 08/14/18 Range/Units 20:44 20:29 20:29 WBC (4.0-10.5) K/mm3 RBC (4.1-5.4) M/mm3 Hgb (12.0-16.0) gm/dl Hct (35-47) % MCV (78-100) fl MCH (26-32) pg MCHC (32-36) g/dl RDW (11.5-14.0) % Plt Count (150-450) K/mm3 MPV (6-9.5) fl Gran % (36.0-66.0) % Eos # (Auto) (0-0.5) Absolute Lymphs (auto) (1.0-4.6) Absolute Monos (auto) (0.0-1.3) Lymphocytes % (24.0-44.0) % Monocytes % (0.0-12.0) % Eosinophils % (0.00-5.0) % Basophils % (0.0-0.4) % Absolute Granulocytes (1.4-6.9) Basophils # (0-0.4) Sodium 133 L (137-145) mmol/L Potassium 2.7 L* (3.5-5.1) mmol/L Chloride 80 L (98-107) mmol/L Carbon Dioxide 36 H (22-30) mmol/L Anion Gap 19.7 H (5-15) MEQ/L BUN 83 H (7-17) mg/dL Creatinine 2.67 H (0.52-1.04) mg/dL Estimated GFR 18.8 ML/MIN Glucose 324 H (74-106) mg/dL Lactic Acid (0.4-2.0) Calcium 9.9 (8.4-10.2) mg/dL Total Bilirubin 0.60 (0.2-1.3) mg/dL AST 30 (14-36) U/L ALT 25 (0-35) U/L Alkaline Phosphatase 143 H (38-126) U/L Troponin I 0.016 (0.000-0.034) ng/mL NT-Pro-B Natriuret Pep 446 (0-900) pg/mL Serum Total Protein 8.3 H (6.3-8.2) g/dL Albumin 4.5 (3.5-5.0) g/dL Urine Color STRAW (YELLOW) Urine Appearance CLEAR (CLEAR) Urine pH 6.0 (5-6) Ur Specific Thornton 1.008 (1.005-1.025) Urine Protein NEGATIVE (Negative) Urine Ketones NEGATIVE (NEGATIVE) Urine Blood NEGATIVE (0-5) Tulio/ul Urine Nitrite NEGATIVE (NEGATIVE) Urine Bilirubin NEGATIVE (NEGATIVE) Urine Urobilinogen NEGATIVE (0-1) mg/dL Ur Leukocyte Esterase NEGATIVE (NEGATIVE) Urine WBC (Auto) 0-2 (0-5) /HPF Urine RBC (Auto) 0-2 (0-2) /HPF U Hyaline Cast (Auto) 0-2 (0-2) /LPF U Epithel Cells (Auto) FEW (FEW) /HPF Urine Bacteria (Auto) RARE (NEGATIVE) /HPF Urine Mucus (Auto) SLIGHT (NEGATIVE) /HPF Urine Culture Reflexed NO (NO) Urine Glucose 150 (NEGATIVE) mg/dL 08/14/18 08/14/18 Range/Units 20:29 20:26 WBC 14.4 H (4.0-10.5) K/mm3 RBC 4.22 (4.1-5.4) M/mm3 Hgb 13.4 (12.0-16.0) gm/dl Hct 38.7 (35-47) % MCV 91.7 (78-100) fl MCH 31.8 (26-32) pg MCHC 34.6 (32-36) g/dl RDW 13.8 (11.5-14.0) % Plt Count 223 (150-450) K/mm3 MPV 11.1 H (6-9.5) fl Gran % 69.9 H (36.0-66.0) % Eos # (Auto) 0.14 (0-0.5) Absolute Lymphs (auto) 2.95 (1.0-4.6) Absolute Monos (auto) 1.21 (0.0-1.3) Lymphocytes % 20.5 L (24.0-44.0) % Monocytes % 8.4 (0.0-12.0) % Eosinophils % 1.0 (0.00-5.0) % Basophils % 0.2 (0.0-0.4) % Absolute Granulocytes 10.07 H (1.4-6.9) Basophils # 0.03 (0-0.4) Sodium (137-145) mmol/L Potassium (3.5-5.1) mmol/L Chloride (98-107) mmol/L Carbon Dioxide (22-30) mmol/L Anion Gap (5-15) MEQ/L BUN (7-17) mg/dL Creatinine (0.52-1.04) mg/dL Estimated GFR ML/MIN Glucose (74-106) mg/dL Lactic Acid 3.4 H (0.4-2.0) Calcium (8.4-10.2) mg/dL Total Bilirubin (0.2-1.3) mg/dL AST (14-36) U/L ALT (0-35) U/L Alkaline Phosphatase (38-126) U/L Troponin I (0.000-0.034) ng/mL NT-Pro-B Natriuret Pep (0-900) pg/mL Serum Total Protein (6.3-8.2) g/dL Albumin (3.5-5.0) g/dL Urine Color (YELLOW) Urine Appearance (CLEAR) Urine pH (5-6) Ur Specific Thornton (1.005-1.025) Urine Protein (Negative) Urine Ketones (NEGATIVE) Urine Blood (0-5) Tulio/ul Urine Nitrite (NEGATIVE) Urine Bilirubin (NEGATIVE) Urine Urobilinogen (0-1) mg/dL Ur Leukocyte Esterase (NEGATIVE) Urine WBC (Auto) (0-5) /HPF Urine RBC (Auto) (0-2) /HPF U Hyaline Cast (Auto) (0-2) /LPF U Epithel Cells (Auto) (FEW) /HPF Urine Bacteria (Auto) (NEGATIVE) /HPF Urine Mucus (Auto) (NEGATIVE) /HPF Urine Culture Reflexed (NO) Urine Glucose (NEGATIVE) mg/dL - Progress Progress: improved Progress Note: 08/14/18 22:35 will transfer to [facility] per Dr Lira, hospitalist. Will see Dr Mac. - Departure Time of Disposition: 22:36 Departure Disposition: Transfer (transfer to [facility] per Dr Lira) Clinical Impression: Hypokalemia, Dehydration, Acute on chronic kidney failure Condition: Stable Critical Care Time: No Referrals: SONIA MARTIN MD [Primary Care Provider] -
[2018-08-14 20:32] LABS: Lactic Acid 3.4 (0.4-2.0)
[2018-08-14 20:33] LABS: BASOPHIL % 0.2 % (0.0-0.4); Basophil (Absolute #) 0.03 (0-0.4); Eosinophil (Absolute #) 0.14 (0-0.5); Granulocyte Absolute (ANC) 10.07 (1.4-6.9); Granulocytes % 69.9 % (36.0-66.0); Hematocrit 38.7 % (35-47); Hemoglobin 13.4 gm/dl (12.0-16.0); Lymphocyte (Absolute #) 2.95 (1.0-4.6); Lymphocytes % 20.5 % (24.0-44.0); Mean Cell Volume 91.7 fl (78-100); Mean Corpuscular Hemoglobin 31.8 pg (26-32); Mean Corpuscular Hgb Concent. 34.6 g/dl (32-36); Mean Platelet Volume 11.1 fl (6-9.5); Monocyte (Absolute #) 1.21 (0.0-1.3); Monocytes % 8.4 % (0.0-12.0); Platelet Count 223 K/mm3 (150-450); Red Blood Count 4.22 M/mm3 (4.1-5.4); Red Cell Distribution Width 13.8 % (11.5-14.0); White Blood Count 14.4 K/mm3 (4.0-10.5)
[2018-08-14 20:50] LABS: Appearance CLEAR (CLEAR); Bacteria RARE /HPF (NEGATIVE); Bilirubin NEGATIVE (NEGATIVE); Blood NEGATIVE Ery/ul (0-5); Epithelial Cells FEW /HPF (FEW); Glucose 150 mg/dL (NEGATIVE); Hyaline Casts 0-2 /LPF (0-2); Ketones NEGATIVE (NEGATIVE); Leukocyte Esterase NEGATIVE (NEGATIVE); Mucus SLIGHT /HPF (NEGATIVE); Nitrite NEGATIVE (NEGATIVE); Protein,Urine Dip NEGATIVE (Negative); RBC 0-2 /HPF (0-2); Specific Gravity 1.008 (1.005-1.025); Urobilinogen NEGATIVE mg/dL (0-1); WBC 0-2 /HPF (0-5)
[2018-08-14] MEDS ORDERED: POTASSIUM CHLORIDE 20 mEq IN WATER 100ML 20 MEQ/100 ML BAG IV ONE (20:51)
[2018-08-14] MEDS ORDERED: Klor Con 10 MEQ PO ONE ×2 (20:52→20:56)
[2018-08-14] MEDS ORDERED: POTASSIUM CHLORIDE 20 mEq IN WATER 100ML 100 ML IV ONE (20:56)
[2018-08-14 20:57] LABS: ALBUMIN 4.5 g/dL (3.5-5.0); BILIRUBIN,TOTAL 0.6 mg/dL (0.2-1.3); Calcium 9.9 mg/dL (8.4-10.2); Creatinine 1 2.67 mg/dL (0.52-1.04); Total Protein 8.3 g/dL (6.3-8.2)
[2018-08-14] MEDS ORDERED: Sodium Chloride 0.9% 500 ML 500 ML IV ONE (21:00)
[2018-08-14] MEDS ORDERED: Sodium Chloride 0.9% 500 ML 500 ML IV SCH (21:00)
[2018-08-14 21:21] LABS: Potassium 2.7 mmol/L (3.5-5.1)
[2018-08-14 21:22] LABS: ANION GAP 19.7 MEQ/L (5-15)
[2018-08-14 23:19] LABS: Lactic Acid 2.5 (0.4-2.0)
[2018-08-14 23:52] VITALS: BP 145/90; PULSE 78
[2018-08-15 00:15] VITALS: O2SAT 95
--- NOTE | 2018-08-15 07:55 | XRAY ---
Indication: Weakness. Comparison: December 16, 2017. Portable apical lordotic chest underinflated and clear. Heart is not enlarged again with cardiac stent graft. Bony thorax intact again with mild osteopenia and degenerative changes. Impression: Nonacute chest with chronic features.
== END 2018-08-15 00:42 | disposition short-term general hospital (02) ==
LOC: ED 18:04
DX: E87.6 Hypokalemia (principal); E86.0 Dehydration; N17.9 Acute kidney failure, unspecified; I12.9 Hypertensive chronic kidney disease with stage 1 through stage 4 chronic kidney disease, or unspecified chronic kidney disease; N18.4 Chronic kidney disease, stage 4 (severe); E78.00 Pure hypercholesterolemia, unspecified; I25.10 Atherosclerotic heart disease of native coronary artery without angina pectoris; F41.8 Other specified anxiety disorders; E11.9 Type 2 diabetes mellitus without complications; Z79.899 Other long term (current) drug therapy
CPT/HCPCS: 36000; 36415; 71045; 80053; 81001; 83605; 83880; 84484; 85025; 93005; 93041; 96360; 96361; 99285; J3480; A9270-GY

== ENCOUNTER 2018-10-28 09:59 | Day surgery (SDC) | payer MEDICARE ==
[2018-10-28] MEDS ORDERED: Xylocaine-Mpf 2 ML IJ ONE (10:00)
[2018-10-28] MEDS ORDERED: DIPRIVAN 200 MG/20 ML IV ONE (10:00)
[2018-10-28] MEDS ORDERED: Ketamine HCl 50 MG/ML IV ONE (10:00)
[2018-10-28] MEDS ORDERED: Depo-Medrol 40 MG/ML IM ONE (10:00)
[2018-10-28] MEDS ORDERED: Marcaine 0.5% SDV 10 ML IJ ONE (10:00)
--- NOTE | 2018-10-28 14:01 | XRAY ---
Indication: Right shoulder injection. Intraoperative fluoroscopy was provided for 8 seconds. Single digital spot image submitted for interpretation demonstrates needle tip projecting over the right superior glenohumeral joint. Small amount of contrast injected for needle tip placement. Correlate with intraoperative findings/report.
--- NOTE | 2018-10-28 14:01 | XRAY ---
Indication: Left shoulder injection. Intraoperative fluoroscopy was provided for 9 seconds. Single digital spot image submitted for interpretation demonstrates needle tip projecting over the left superior glenohumeral joint. Small amount of contrast injected for needle tip placement. Correlate with intraoperative findings/report.
--- NOTE | 2018-10-28 14:03 | XRAY ---
9 seconds fluoroscopy time in surgery for left shoulder injection.
--- NOTE | 2018-10-28 14:14 | XRAY ---
8 seconds fluoroscopy time in surgery for right shoulder injection.
[2018-10-28] MEDS ORDERED: Lactated Ringers 1,000 ML IV ONE (15:38)
== END 2018-10-28 12:22 | disposition home or self-care (01) ==
LOC: SDC-PAIN 09:59
PROVIDERS: ATTEND Psychiatry & Neurology Pain Medicine
DX: M19.012 Primary osteoarthritis, left shoulder (principal); M19.011 Primary osteoarthritis, right shoulder; M25.511 Pain in right shoulder; M25.512 Pain in left shoulder; E11.9 Type 2 diabetes mellitus without complications; Z79.899 Other long term (current) drug therapy; F41.9 Anxiety disorder, unspecified; M79.7 Fibromyalgia; G25.81 Restless legs syndrome; N18.4 Chronic kidney disease, stage 4 (severe); G47.30 Sleep apnea, unspecified; E78.5 Hyperlipidemia, unspecified
CPT/HCPCS: 20610; 73030; 77002; 82962; J1030; J2704; Q9966

== ENCOUNTER 2018-12-02 07:49 | Day surgery (SDC) | payer MEDICARE ==
[2018-12-02] MEDS ORDERED: Ketamine HCl 50 MG/ML IV ONE (07:50)
[2018-12-02] MEDS ORDERED: DIPRIVAN 200 MG/20 ML IV ONE (07:50)
[2018-12-02] MEDS ORDERED: Depo-Medrol 40 MG/ML IM ONE (07:50)
[2018-12-02] MEDS ORDERED: Xylocaine-Mpf 2% 5 Ml Vial IJ ONE (07:50)
--- NOTE | 2018-12-02 10:25 | XRAY ---
Indication: Bilateral L3-S1 MBB. Intraoperative fluoroscopy was provided for 9 seconds. Single digital spot image submitted for interpretation demonstrates posterior needle tips projecting over the expected course of the left and right L3-S1 nerve roots. Correlate with intraoperative findings/report.
--- NOTE | 2018-12-02 10:27 | XRAY ---
9 seconds fluoroscopy time in surgery for bilateral L3-S1 MBB.
[2018-12-02] MEDS ORDERED: Lactated Ringers 1,000 ML IV ONE (13:08)
== END 2018-12-02 10:00 | disposition home or self-care (01) ==
LOC: SDC-PAIN 07:49
PROVIDERS: ATTEND Psychiatry & Neurology Pain Medicine
DX: M47.816 Spondylosis without myelopathy or radiculopathy, lumbar region (principal); E11.9 Type 2 diabetes mellitus without complications; E78.5 Hyperlipidemia, unspecified; N18.4 Chronic kidney disease, stage 4 (severe); G47.30 Sleep apnea, unspecified; F41.9 Anxiety disorder, unspecified; I15.0 Renovascular hypertension; G25.81 Restless legs syndrome
CPT/HCPCS: 64493; 64494; 64495; 72020; 77002; 82962; J1030; J2704

== ENCOUNTER 2019-01-20 09:03 | Day surgery (SDC) | payer MEDICARE ==
[2019-01-20] MEDS ORDERED: Marcaine 0.5% SDV 10 ML IJ ONE (09:04)
[2019-01-20] MEDS ORDERED: Depo-Medrol 40 MG/ML IM ONE (09:04)
[2019-01-20] MEDS ORDERED: DIPRIVAN 200 MG/20 ML IV ONE (10:11)
[2019-01-20] MEDS ORDERED: Ketamine HCl 50 MG/ML ONE (10:11)
--- NOTE | 2019-01-20 12:21 | XRAY ---
9 seconds fluoroscopy time in surgery for bilateral L3-S1 MBB.
[2019-01-20] MEDS ORDERED: Lactated Ringers 1,000 ML IV ONE (13:11)
== END 2019-01-20 10:37 | disposition home or self-care (01) ==
LOC: SDC-PAIN 09:03
PROVIDERS: ATTEND Psychiatry & Neurology Pain Medicine
DX: M47.816 Spondylosis without myelopathy or radiculopathy, lumbar region (principal); E78.5 Hyperlipidemia, unspecified; I15.0 Renovascular hypertension; I12.9 Hypertensive chronic kidney disease with stage 1 through stage 4 chronic kidney disease, or unspecified chronic kidney disease; E11.22 Type 2 diabetes mellitus with diabetic chronic kidney disease; N18.4 Chronic kidney disease, stage 4 (severe); M79.7 Fibromyalgia; G25.81 Restless legs syndrome; F41.8 Other specified anxiety disorders; Z85.3 Personal history of malignant neoplasm of breast; Z79.899 Other long term (current) drug therapy
CPT/HCPCS: 64493; 64494; 72020; 77002; 82962; J1030; J2704

== ENCOUNTER 2019-02-17 07:47 | Day surgery (SDC) | payer MEDICARE ==
[~2019-02-17 07:47] MED LIST: Depo-Medrol 40 MG/ML IM ONE; Marcaine 0.5% SDV 10 ML IJ ONE; Xylocaine 1% Vial 30 ML PF IJ ONE
[2019-02-17] MEDS ORDERED: DIPRIVAN 200 MG/20 ML IV ONE ×2 (07:59→08:12)
[2019-02-17] MEDS ORDERED: Ketamine HCl 50 MG/ML ONE ×2 (08:00→08:12)
--- NOTE | 2019-02-17 11:00 | XRAY ---
Indication: Right L3-S1 RFA. Intraoperative fluoroscopy was provided for 27 seconds. 3 digital spot images submitted for interpretation demonstrates posterior needle tips projecting over the expected course of the right L3-S1 nerve roots. Correlate with intraoperative findings/report.
--- NOTE | 2019-02-17 11:23 | XRAY ---
27 seconds fluoroscopy time in surgery for right L3-S1 RFA.
[2019-02-17] MEDS ORDERED: Lactated Ringers 1,000 ML IV ONE (15:23)
== END 2019-02-17 09:50 | disposition home or self-care (01) ==
LOC: SDC-PAIN 07:47
PROVIDERS: ATTEND Psychiatry & Neurology Pain Medicine
DX: M47.816 Spondylosis without myelopathy or radiculopathy, lumbar region (principal); E78.5 Hyperlipidemia, unspecified; G25.81 Restless legs syndrome; E11.22 Type 2 diabetes mellitus with diabetic chronic kidney disease; I12.9 Hypertensive chronic kidney disease with stage 1 through stage 4 chronic kidney disease, or unspecified chronic kidney disease; N18.4 Chronic kidney disease, stage 4 (severe); G47.30 Sleep apnea, unspecified; K58.9 Irritable bowel syndrome, unspecified; F41.8 Other specified anxiety disorders
CPT/HCPCS: 64635; 64636; 72100; 77002; 82962; J1030; J2001; J2704

== ENCOUNTER 2019-03-11 00:26 | Emergency (ER) | payer MEDICARE ==
--- NOTE | 2019-03-11 01:08 | ERPHSYRPT ---
- History of Present Illness Time Seen by Provider: 03/11/19 01:00 Source: patient Exam Limitations: no limitations Physician History: right foot swollen, tender for the past 2 days. Patient has a previous history of gout in the same location. The patient denies any injury to the right foot. Method of Injury: other (no history of injury; patient is concerned for gout) Occurred: yesterday Quality: constant, aching, sharpness Severity of Pain-Max: moderate Severity of Pain-Current: severe Lower Extremities Pain: foot: right, 1st toe: right Modifying Factors: Improves With: movement Associated Symptoms: unable to bear weight, No dizzy, No fainted, No seizure, No snapping sensation, No popping sensation Allergies/Adverse Reactions: hydromorphone [From Dilaudid] Allergy (Severe, Verified 08/14/18 18:40) Difficulty Breathing morphine Allergy (Severe, Verified 08/14/18 18:40) Difficulty Breathing Sulfa (Sulfonamide Antibiotics) Allergy (Severe, Verified 08/14/18 18:40) Extreme constipation ciprofloxacin [From Cipro] Allergy (Verified 08/14/18 18:40) diphenhydramine [From Benadryl] Allergy (Verified 08/14/18 18:40) meclofenamic acid [From Meclomen] Allergy (Verified 08/14/18 18:40) naltrexone [From Embeda] Adverse Reaction (Verified 08/14/18 18:40) Home Medications: Acetaminophen [Tylenol] 650 mg PO TID PRN PRN 08/20/17 [History] Bumetanide [Bumex] 2 mg PO BID 08/20/17 [History] Calcium No.1/D3/B6/FA/B12/Aloe [Vitamin D3-Aloe 1,000 Unit Tab] 2 each PO UD [History] Clonazepam [Klonopin] 0.25 mg PO QID 08/20/17 [History] Duloxetine HCl [Cymbalta] 60 mg PO DAILY 08/20/17 [History] Gabapentin [Neurontin] 600 mg PO QID 08/20/17 [History] Insulin Glargine,Hum.rec.anlog [Tounolan Solostar] 55 unit SQ DAILY 08/20/17 [ History] Isosorbide Mononitrate 30 mg [Imdur 30 MG] 30 mg PO DAILY 08/20/17 [History ] Loratadine 10 mg [Claritin 10 mg] 10 mg PO DAILY 08/20/17 [History] Multivitamin [Multi-Vitamin Daily] 1 each PO DAILY 08/20/17 [History] Nitroglycerin 0.4 mg Tablet [Nitrostat 0.4 MG Tablet] 0.4 mg SL Q5MIN PRN MR X 3 PRN 08/20/17 [History] Potassium Chloride 10 Meq Tab* [Klor Con 10 MEQ] 10 meq PO QID 08/20/17 [ History] Trazodone HCl 50 mg [Desyrel 50 mg] 75 mg PO HS 08/20/17 [History] Glipizide Xl 10 mg [Glucotrol Xl 10 MG] 10 mg PO DAILY 12/16/17 [History] Metoprolol Succinate 50 mg [Toprol Xl 50 MG] 50 mg PO HS 12/16/17 [History ] Hx Tetanus, Diphtheria Vaccination/Date Given: Yes Hx Influenza Vaccination/Date Given: Yes Hx Pneumococcal Vaccination/Date Given: Yes - Review of Systems Constitutional: No Fever, No Chills Eyes: No Eye Pain, No Vision Changes Ears, Nose, & Throat: No Mouth Swelling, No Painful Swallowing Respiratory: No Cough, No Dyspnea Cardiac: No Chest Pain, No Edema, No Syncope Abdominal/Gastrointestinal: No Abdominal Pain, No Nausea, No Vomiting, No Diarrhea Genitourinary Symptoms: No Dysuria Musculoskeletal: No Back Pain, No Neck Pain Skin: No Rash, No Skin Lesions Neurological: No Dizziness, No Focal Weakness, No Sensory Changes Psychological: No Symptoms Endocrine: No Polyuria, No Excessive Sweating Hematologic/Lymphatic: No Easy Bleeding, No Easy Bruising All Other Systems: Reviewed and Negative - Past Medical History Pertinent Past Medical History: Yes Neurological History: Peripheral Neuropathy ENT History: Cataracts Cardiac History: Other Respiratory History: No Pertinent History Endocrine Medical History: Adrenal Insufficiency, Diabetes Type II Musculoskeletal History: Osteoarthritis GI Medical History: Irritable Bowel History: No Pertinent History, Renal Disease, Other (CKD Stage 4 per patient' s history) Psycho-Social History: Anxiety, Depression Female Reproductive Disorders: No Pertinent History Other Medical History: back surgery, may have to start dialysis, trans aortic valve replacement - Past Surgical History Past Surgical History: Yes Neuro Surgical History: No Pertinent History Cardiac: Other Respiratory: No Pertinent History Gastrointestinal: Bowel Surgery, Cholecystectomy Genitourinary: No Pertinent History Musculoskeletal: No Pertinent History Female Surgical History: No Pertinent History, Hysterectomy Other Surgical History: intestinal bypass and then reverse,sinus surgery times 2 roof/mouth then sinus surgery nose,left foot planters wart,right breast tumor, rt ankle/right leg sx after fx,left breast mastectomy with sentinel removed,6 marek steroid inj,t.a.v.r.-transcatheter aortic value replacement,lumbar laminectomy, steroid injections in back - Social History Smoking Status: Never smoker Exposure to second hand smoke: No Drug Use: none Patient Lives Alone: No - Nursing Vital Signs Nursing Vital Signs: Initial Vital Signs Temperature 97.9 F 03/11/19 00:47 Pulse Rate 87 03/11/19 00:47 Respiratory Rate 18 03/11/19 00:47 Blood Pressure 189/70 03/11/19 00:47 O2 Sat by Pulse Oximetry 96 03/11/19 00:47 Pain Scale Pain Intensity [] 4 Pain Intensity 4 - Physical Exam General Appearance: no apparent distress, alert Eyes, Ears, Nose, Throat Exam: moist mucous membranes Neck Exam: non-tender, supple Cardiovascular/Respiratory Exam: normal breath sounds, no respiratory distress, normal peripheral pulses Back Exam: No CVA tenderness, No vertebral tenderness Hips Exam: bilateral: non-tender, normal inspection, normal range of motion Legs Exam: bilateral leg: non-tender, normal inspection, normal range of motion Knees Exam: bilateral knee: non-tender, normal inspection, normal range of motion Ankle Exam: bilateral ankle: non-tender, normal inspection, normal range of motion, no evidence of injury Foot Exam: right foot: bone tenderness, limited range of motion, pain, left foot : non-tender, normal range of motion, bilateral foot: normal inspection, no evidence of injury DTR - Lower Extremities Exam: ankle (R): 2+, ankle (L): 2+ Neuro/Tendon Exam: normal sensation, normal motor functions, normal tendon functions Mental Status Exam: alert, oriented x 3, cooperative Skin Exam: normal color, warm, dry, No rash, No cyanosis SpO2 Interpretation: normal SpO2: 96 O2 Delivery: Room Air - Course Nursing assessment & vital signs reviewed: Yes - Radiology Exams Right Foot X-ray Interpretation: Interpreted by me, Reviewed by me, No Fracture, Nml Alignment, Nml Soft Tissues, Other (hardware intact from previous fracture repair) Ordered Tests: Active Orders 24 hr Category Date Time Status FOOT (MINIMUM 3 VIEWS) Stat Exams 03/11/19 Ordered BMP Stat Lab 03/11/19 01:04 Completed CBC W DIFF Stat Lab 03/11/19 01:04 Completed SED RATE [Erythrocyte Sedimentation Rate] Stat Lab 03/11/19 01:04 Completed Uric Acid Stat Lab 03/11/19 01:05 Completed Medication Summary Discontinued Medications Generic Name Dose Route Start Last Admin Trade Name Freq PRN Reason Stop Dose Admin Dexamethasone Sodium Phosphate 8 mg 03/11/19 01:06 03/11/19 01:43 Decadron 10mg Inj. IV 03/11/19 01:07 8 mg STAT ONE Administration Dexamethasone Sodium Phosphate Confirm 03/11/19 01:42 Decadron 10mg Inj. Administered 03/11/19 01:43 Dose 10 mg .ROUTE .STK-MED ONE Lab/Rad Data: Laboratory Result Diagrams 03/11/19 01:04 03/11/19 01:04 Laboratory Results 03/11/19 03/11/19 03/11/19 Range/Units 01:05 01:04 01:04 WBC 9.8 (4.0-10.5) K/mm3 RBC 3.52 L (4.1-5.4) M/mm3 Hgb 11.3 L (12.0-16.0) gm/dl Hct 33.5 L (35-47) % MCV 95.2 (78-100) fl MCH 32.1 H (26-32) pg MCHC 33.7 (32-36) g/dl RDW 14.0 (11.5-14.0) % Plt Count 160 (150-450) K/mm3 MPV 10.9 H (6-9.5) fl Gran % 59.9 (36.0-66.0) % Eos # (Auto) 0.39 (0-0.5) Absolute Lymphs (auto) 2.74 (1.0-4.6) Absolute Monos (auto) 0.77 (0.0-1.3) Lymphocytes % 27.9 (24.0-44.0) % Monocytes % 7.8 (0.0-12.0) % Eosinophils % 4.0 (0.00-5.0) % Basophils % 0.4 (0.0-0.4) % Absolute Granulocytes 5.89 (1.4-6.9) Basophils # 0.04 (0-0.4) ESR 81 H (0-20) mm/hr Sodium 138 (137-145) mmol/L Potassium 3.4 L (3.5-5.1) mmol/L Chloride 99 (98-107) mmol/L Carbon Dioxide 31 H (22-30) mmol/L Anion Gap 11.6 (5-15) MEQ/L BUN 31 H (7-17) mg/dL Creatinine 1.81 H (0.52-1.04) mg/dL Estimated GFR 29.5 ML/MIN Glucose 249 H (74-106) mg/dL Uric Acid 4.9 (2.6-6.0) mg/dL Calcium 9.4 (8.4-10.2) mg/dL - Progress Progress: improved Progress Note: 03/11/19 03:23 Patient resting comfortably and easily awoken. She has some brief episodes of itching and discomfort while in the emergency department. - Departure Departure Disposition: Home Clinical Impression: Right foot pain, Hypokalemia Chronic kidney disease (CKD) Qualifiers: Chronic kidney disease stage: stage 4 (severe) Qualified Code(s): N18.4 - Chronic kidney disease, stage 4 (severe) Hypertension Qualifiers: Hypertension type: unspecified Qualified Code(s): I10 - Essential (primary) hypertension Condition: Good Critical Care Time: No Referrals: SONIA MARTIN MD [Primary Care Provider] - 03/11/19 KITA SANCHEZ [NON-STAFF PHY W/O PRIVILEGES] - 03/11/19 Instructions: Metatarsalgia (DC), Diabetic Neuropathy (DC), Chronic Kidney Disease, High Blood Pressure (DC), Hypokalemia (DC) Additional Instructions: followup with your pay station collector to continue to evaluate etiology to her foot symptoms as of today clinically he had no signs of infection, bone disease such as a fracture, or obvious gallop. This also could be caused by diabetes causing a neuropathy, explaining the tingling, prickly sensation and itching sensation to your feet.
[2019-03-11 01:40] LABS: BASOPHIL % 0.4 % (0.0-0.4); Basophil (Absolute #) 0.04 (0-0.4); Eosinophil (Absolute #) 0.39 (0-0.5); Granulocyte Absolute (ANC) 5.89 (1.4-6.9); Granulocytes % 59.9 % (36.0-66.0); Hematocrit 33.5 % (35-47); Hemoglobin 11.3 gm/dl (12.0-16.0); Lymphocyte (Absolute #) 2.74 (1.0-4.6); Lymphocytes % 27.9 % (24.0-44.0); Mean Cell Volume 95.2 fl (78-100); Mean Corpuscular Hemoglobin 32.1 pg (26-32); Mean Corpuscular Hgb Concent. 33.7 g/dl (32-36); Mean Platelet Volume 10.9 fl (6-9.5); Monocyte (Absolute #) 0.77 (0.0-1.3); Monocytes % 7.8 % (0.0-12.0); Platelet Count 160 K/mm3 (150-450); Red Blood Count 3.52 M/mm3 (4.1-5.4); White Blood Count 9.8 K/mm3 (4.0-10.5)
[2019-03-11] MEDS ORDERED: DECADRON 10MG INJ. ONE (01:42)
[2019-03-11] MEDS: DECADRON 10MG INJ. IV ONE (01:43)
[2019-03-11 02:02] LABS: Erythrocyte Sedimentation Rate 81 mm/hr (0-20)
[2019-03-11 02:18] LABS: ANION GAP 11.6 MEQ/L (5-15); Calcium 9.4 mg/dL (8.4-10.2); Creatinine 1 1.81 mg/dL (0.52-1.04); Potassium 3.4 mmol/L (3.5-5.1)
[2019-03-11] MEDS ORDERED: Klor Con 10 MEQ PO ONE (03:34)
[2019-03-11] MEDS: Klor Con 10 MEQ PO ONE (03:57)
[2019-03-11 04:04] VITALS: BP 173/79; PULSE 76; O2SAT 95
--- NOTE | 2019-03-11 09:07 | XRAY ---
Indication: Pain. No known injury. Comparison: November 18, 2014. 3 nonweightbearing views of the right foot again demonstrates mild osteopenia, small heel spurs, and old bimalleolar fractures with intact orthopedic hardware. No new or acute bony, articular, or soft tissue abnormalities.
== END 2019-03-11 04:03 | disposition home or self-care (01) ==
LOC: ED 00:26
DX: E87.6 Hypokalemia (principal); I12.9 Hypertensive chronic kidney disease with stage 1 through stage 4 chronic kidney disease, or unspecified chronic kidney disease; N18.4 Chronic kidney disease, stage 4 (severe); M10.9 Gout, unspecified; Z79.899 Other long term (current) drug therapy
CPT/HCPCS: 36000; 36415; 73630; 80048; 84550; 85025; 85652; 96374; 99284; J1100; A9270-GY

== ENCOUNTER 2019-03-14 00:02 | Emergency (ER) | payer MEDICARE ==
--- NOTE | 2019-03-14 00:25 | ERPHSYRPT ---
- History of Present Illness Time Seen by Provider: 03/14/19 01:00 Source: patient Exam Limitations: no limitations Patient Subjective Stated Complaint: pt states she was taking an extra medication to get rid of extra fluid- states every time she takes this medication her potassium and sodium lower and she has increased weakness. states seh fell tonight, denies injury from fall. Triage Nursing Assessment: pt alert and oriented, answers questions approp. pt arrive per ambulance. transferred to stretcher with assist of 4. respirations nonlabored with lungs cta. skin warm and dry Physician History: Told by kidney doctor Friday to take mediation - which always causes her sodium and potassium to drop. brings in lab sheets from 11 March (Friday). [place] weak today and fell - no injuries. Severity: mild Allergies/Adverse Reactions: hydromorphone [From Dilaudid] Allergy (Severe, Verified 03/14/19 00:17) Difficulty Breathing morphine Allergy (Severe, Verified 03/14/19 00:17) Difficulty Breathing Sulfa (Sulfonamide Antibiotics) Allergy (Severe, Verified 03/14/19 00:17) Extreme constipation ciprofloxacin [From Cipro] Allergy (Verified 03/14/19 00:17) diphenhydramine [From Benadryl] Allergy (Verified 03/14/19 00:17) meclofenamic acid [From Meclomen] Allergy (Verified 03/14/19 00:17) naltrexone [From Embeda] Adverse Reaction (Verified 03/14/19 00:17) Home Medications: Acetaminophen [Tylenol] 650 mg PO TID PRN PRN 08/20/17 [History] Bumetanide [Bumex] 2 mg PO BID 08/20/17 [History] Calcium No.1/D3/B6/FA/B12/Aloe [Vitamin D3-Aloe 1,000 Unit Tab] 2 each PO UD [History] Clonazepam [Klonopin] 0.25 mg PO QID 08/20/17 [History] Duloxetine HCl [Cymbalta] 60 mg PO DAILY 08/20/17 [History] Gabapentin [Neurontin] 600 mg PO QID 08/20/17 [History] Insulin Glargine,Hum.rec.anlog [Philip Sainz] 55 unit SQ DAILY 08/20/17 [ History] Isosorbide Mononitrate 30 mg [Imdur 30 MG] 30 mg PO DAILY 08/20/17 [History ] Loratadine 10 mg [Claritin 10 mg] 10 mg PO DAILY 08/20/17 [History] Multivitamin [Multi-Vitamin Daily] 1 each PO DAILY 08/20/17 [History] Nitroglycerin 0.4 mg Tablet [Nitrostat 0.4 MG Tablet] 0.4 mg SL Q5MIN PRN MR X 3 PRN 08/20/17 [History] Potassium Chloride 10 Meq Tab* [Klor Con 10 MEQ] 10 meq PO QID 08/20/17 [ History] Trazodone HCl 50 mg [Desyrel 50 mg] 75 mg PO HS 08/20/17 [History] Glipizide Xl 10 mg [Glucotrol Xl 10 MG] 10 mg PO DAILY 12/16/17 [History] Metoprolol Succinate 50 mg [Toprol Xl 50 MG] 50 mg PO HS 12/16/17 [History ] Hx Tetanus, Diphtheria Vaccination/Date Given: Yes Hx Influenza Vaccination/Date Given: Yes Hx Pneumococcal Vaccination/Date Given: Yes Immunizations Up to Date: Yes - Review of Systems Constitutional: Weakness Respiratory: No Symptoms Cardiac: No Symptoms All Other Systems: Reviewed and Negative - Past Medical History Pertinent Past Medical History: Yes Neurological History: Peripheral Neuropathy ENT History: Cataracts Cardiac History: Other Respiratory History: No Pertinent History Endocrine Medical History: Adrenal Insufficiency, Diabetes Type II Musculoskeletal History: Osteoarthritis GI Medical History: Irritable Bowel History: No Pertinent History, Renal Disease, Other Psycho-Social History: Anxiety, Depression Female Reproductive Disorders: No Pertinent History, Breast Cancer Other Medical History: back surgery, may have to start dialysis, trans aortic valve replacement - Past Surgical History Past Surgical History: Yes Neuro Surgical History: No Pertinent History Cardiac: Other Respiratory: No Pertinent History Gastrointestinal: Bowel Surgery, Cholecystectomy Genitourinary: No Pertinent History Musculoskeletal: No Pertinent History Female Surgical History: No Pertinent History, Hysterectomy Other Surgical History: intestinal bypass and then reverse,sinus surgery times 2 roof/mouth then sinus surgery nose,left foot planters wart,right breast tumor, rt ankle/right leg sx after fx,left breast mastectomy with sentinel removed,6 marek steroid inj,t.a.v.r.-transcatheter aortic value replacement,lumbar laminectomy, steroid injections in back - Social History Smoking Status: Never smoker Exposure to second hand smoke: No Drug Use: none Patient Lives Alone: No - Nursing Vital Signs Nursing Vital Signs: Initial Vital Signs Temperature 98.2 F 03/14/19 00:04 Pulse Rate 90 03/14/19 00:04 Respiratory Rate 16 03/14/19 00:04 Blood Pressure 144/90 03/14/19 00:04 O2 Sat by Pulse Oximetry 94 L 03/14/19 00:04 Pain Scale Pain Intensity 4 - Physical Exam General Appearance: no apparent distress Eye Exam: PERRL/EOMI Ears, Nose, Throat Exam: normal ENT inspection Neck Exam: normal inspection Respiratory Exam: normal breath sounds, lungs clear, diminished breath sounds Cardiovascular Exam: regular rate/rhythm, normal heart sounds Gastrointestinal/Abdomen Exam: soft, No tenderness Extremity Exam: normal inspection, normal range of motion Neurologic Exam: alert, oriented x 3, cooperative Skin Exam: normal color, warm, dry SpO2 Interpretation: normal SpO2: 94 O2 Delivery: Room Air Ordered Tests: Active Orders 24 hr Category Date Time Status CBC W DIFF Stat Lab 03/14/19 00:40 Completed CMP Stat Lab 03/14/19 00:40 Completed Potassium (Lab Test) [Potassium] Stat Lab 03/14/19 02:58 Completed Medication Summary Discontinued Medications Generic Name Dose Route Start Last Admin Trade Name Shimonq PRN Reason Stop Dose Admin Potassium Bicarbonate 25 meq 03/14/19 01:43 03/14/19 01:53 K-Lyte 25 Meq PO 03/14/19 01:44 25 meq STAT ONE Administration Potassium Bicarbonate Confirm 03/14/19 01:49 K-Lyte 25 Meq Administered 03/14/19 01:50 Dose 25 meq .ROUTE .STK-MED ONE Lab/Rad Data: Laboratory Result Diagrams 03/14/19 00:40 03/14/19 02:58 Laboratory Results 03/14/19 03/14/19 03/14/19 Range/Units 02:58 00:40 00:40 WBC 12.3 H (4.0-10.5) K/mm3 RBC 3.94 L (4.1-5.4) M/mm3 Hgb 12.4 (12.0-16.0) gm/dl Hct 36.8 (35-47) % MCV 93.4 (78-100) fl MCH 31.4 (26-32) pg MCHC 33.7 (32-36) g/dl RDW 14.3 H (11.5-14.0) % Plt Count 200 (150-450) K/mm3 MPV 10.9 H (6-9.5) fl Gran % 59.9 (36.0-66.0) % Eos # (Auto) 0.35 (0-0.5) Absolute Lymphs (auto) 3.49 (1.0-4.6) Absolute Monos (auto) 1.06 (0.0-1.3) Lymphocytes % 28.4 (24.0-44.0) % Monocytes % 8.6 (0.0-12.0) % Eosinophils % 2.8 (0.00-5.0) % Basophils % 0.3 (0.0-0.4) % Absolute Granulocytes 7.37 H (1.4-6.9) Basophils # 0.04 (0-0.4) Sodium 138 (137-145) mmol/L Potassium 3.4 L 3.1 L (3.5-5.1) mmol/L Chloride 94 L (98-107) mmol/L Carbon Dioxide 33 H (22-30) mmol/L Anion Gap 13.8 (5-15) MEQ/L BUN 45 H (7-17) mg/dL Creatinine 1.95 H (0.52-1.04) mg/dL Estimated GFR 27.0 ML/MIN Glucose 194 H (74-106) mg/dL Calcium 9.7 (8.4-10.2) mg/dL Total Bilirubin 0.50 (0.2-1.3) mg/dL AST 28 (14-36) U/L ALT 23 (0-35) U/L Alkaline Phosphatase 143 H (38-126) U/L Serum Total Protein 7.5 (6.3-8.2) g/dL Albumin 4.1 (3.5-5.0) g/dL - Departure Departure Disposition: Home Clinical Impression: Hypokalemia Condition: Stable Critical Care Time: No Referrals: SONIA MARTIN MD [Primary Care Provider] - Instructions: Muscle Weakness, Hypokalemia (DC) Additional Instructions: Take three of your Potassium pills twice a day tomorrow; call primary care on Friday and let them know of your ER visit and how you are doing.
[2019-03-14 00:44] LABS: BASOPHIL % 0.3 % (0.0-0.4); Basophil (Absolute #) 0.04 (0-0.4); Eosinophil % 2.8 % (0.00-5.0); Eosinophil (Absolute #) 0.35 (0-0.5); Granulocyte Absolute (ANC) 7.37 (1.4-6.9); Granulocytes % 59.9 % (36.0-66.0); Hematocrit 36.8 % (35-47); Hemoglobin 12.4 gm/dl (12.0-16.0); Lymphocyte (Absolute #) 3.49 (1.0-4.6); Lymphocytes % 28.4 % (24.0-44.0); Mean Cell Volume 93.4 fl (78-100); Mean Corpuscular Hgb Concent. 33.7 g/dl (32-36); Mean Platelet Volume 10.9 fl (6-9.5); Monocyte (Absolute #) 1.06 (0.0-1.3); Monocytes % 8.6 % (0.0-12.0); Platelet Count 200 K/mm3 (150-450); Red Blood Count 3.94 M/mm3 (4.1-5.4); Red Cell Distribution Width 14.3 % (11.5-14.0); White Blood Count 12.3 K/mm3 (4.0-10.5)
[2019-03-14 00:45] LABS: Mean Corpuscular Hemoglobin 31.4 pg (26-32)
[2019-03-14 00:56] LABS: ALBUMIN 4.1 g/dL (3.5-5.0); ANION GAP 13.8 MEQ/L (5-15); BILIRUBIN,TOTAL 0.5 mg/dL (0.2-1.3); Calcium 9.7 mg/dL (8.4-10.2); Creatinine 1 1.95 mg/dL (0.52-1.04); Potassium 3.1 mmol/L (3.5-5.1); Total Protein 7.5 g/dL (6.3-8.2)
[2019-03-14] MEDS ORDERED: K-LYTE 25 MEQ PO ONE (01:43)
[2019-03-14] MEDS ORDERED: K-LYTE 25 MEQ ONE (01:49)
[2019-03-14 03:42] VITALS: O2SAT 94
[2019-03-14 04:01] VITALS: BP 135/76; PULSE 78
== END 2019-03-14 04:20 | disposition home or self-care (01) ==
LOC: ED 00:02
DX: E87.6 Hypokalemia (principal)
CPT/HCPCS: 36415; 80053; 84132; 85025; 99284; A9270-GY

== ENCOUNTER 2019-03-17 07:43 | Day surgery (SDC) | payer MEDICARE ==
[2019-03-17] MEDS ORDERED: Xylocaine 1% Vial 30 ML PF IJ ONE (07:44)
[2019-03-17] MEDS ORDERED: Marcaine 0.5% SDV 10 ML IJ ONE (07:44)
[2019-03-17] MEDS ORDERED: Depo-Medrol 40 MG/ML IM ONE (07:44)
[2019-03-17] MEDS ORDERED: DIPRIVAN 200 MG/20 ML IV ONE (08:12)
[2019-03-17] MEDS ORDERED: Ketamine HCl 50 MG/ML ONE (08:13)
[2019-03-17 09:19] LABS: ALBUMIN 4.1 g/dL (3.5-5.0); ANION GAP 13.2 MEQ/L (5-15); BILIRUBIN,TOTAL 0.7 mg/dL (0.2-1.3); Calcium 9.8 mg/dL (8.4-10.2); Creatinine 1 2.16 mg/dL (0.52-1.04); Total Protein 7.6 g/dL (6.3-8.2)
[2019-03-17] MEDS ORDERED: Lactated Ringers 1,000 ML IV ONE (12:47)
--- NOTE | 2019-03-18 02:01 | XRAY ---
Indication: Left L3-S1 are as a. Intraoperative fluoroscopy was provided for 17 seconds. AP and lateral digital spot films demonstrate the needle tips to be projected over the expected course of the left L3-S1 nerve roots. Correlate with intraoperative findings/report.
--- NOTE | 2019-03-18 12:07 | XRAY ---
17 seconds fluoroscopy time in surgery for left L3-S1 RFA.
== END 2019-03-17 09:53 | disposition home or self-care (01) ==
LOC: SDC-PAIN 07:43
PROVIDERS: ATTEND Psychiatry & Neurology Pain Medicine
DX: M47.816 Spondylosis without myelopathy or radiculopathy, lumbar region (principal); G47.30 Sleep apnea, unspecified; E11.22 Type 2 diabetes mellitus with diabetic chronic kidney disease; N18.4 Chronic kidney disease, stage 4 (severe); I12.9 Hypertensive chronic kidney disease with stage 1 through stage 4 chronic kidney disease, or unspecified chronic kidney disease; E78.5 Hyperlipidemia, unspecified; Z79.899 Other long term (current) drug therapy
CPT/HCPCS: 36415; 64633; 64635; 64636; 72100; 77002; 80053; 81001; 82043; 82962; 83970; 84100; 84550; 85027; 93041; 96360; 96361; 96365; 99211; J1030; J2001; J2704; J3480

== ENCOUNTER 2019-04-14 08:43 | Day surgery (SDC) | payer MEDICARE ==
[2019-04-14] MEDS ORDERED: Sodium Chloride 0.9(Preservative Free) 10 ML IJ ONE (08:44)
[2019-04-14] MEDS ORDERED: Depo-Medrol 40 MG/ML IM ONE (08:44)
[2019-04-14] MEDS ORDERED: DIPRIVAN 200 MG/20 ML IV ONE (10:12)
[2019-04-14] MEDS ORDERED: Ketamine HCl 50 MG/ML ONE (10:13)
--- NOTE | 2019-04-14 12:14 | XRAY ---
Indication: Right L4-S1 LINA. Intraoperative fluoroscopy was provided for 33 seconds. 3 digital spot images submitted for interpretation demonstrates posterior needle tips projecting over the expected right L4 and L5 nerve roots. Small amount of contrast injected for needle tip placement. Correlate with intraoperative findings/report.
--- NOTE | 2019-04-14 12:16 | XRAY ---
33 seconds fluoroscopy time in surgery for right L4-S1 LINA.
[2019-04-14] MEDS ORDERED: Lactated Ringers 1,000 ML IV ONE (12:49)
== END 2019-04-14 10:45 | disposition home or self-care (01) ==
LOC: SDC-PAIN 08:43 → EDSTATUS 09:16 → SDC-PAIN 10:45
PROVIDERS: ATTEND Psychiatry & Neurology Pain Medicine
DX: M54.16 Radiculopathy, lumbar region (principal); E78.5 Hyperlipidemia, unspecified; I10 Essential (primary) hypertension; M79.7 Fibromyalgia; G25.81 Restless legs syndrome; I12.9 Hypertensive chronic kidney disease with stage 1 through stage 4 chronic kidney disease, or unspecified chronic kidney disease; E11.22 Type 2 diabetes mellitus with diabetic chronic kidney disease; N18.4 Chronic kidney disease, stage 4 (severe); G47.30 Sleep apnea, unspecified; F41.8 Other specified anxiety disorders; Z79.899 Other long term (current) drug therapy
CPT/HCPCS: 64483; 64484; 72100; 77003; 82962; J1030; J2704; Q9966

== ENCOUNTER 2019-05-19 07:50 | Day surgery (SDC) | payer MEDICARE ==
[2019-05-19] MEDS ORDERED: Marcaine 0.5% SDV 10 ML IJ ONE (07:51)
[2019-05-19] MEDS ORDERED: Depo-Medrol 40 MG/ML IM ONE (07:51)
[2019-05-19] MEDS ORDERED: DIPRIVAN 200 MG/20 ML IV ONE (09:57)
[2019-05-19] MEDS ORDERED: Ketamine HCl 50 MG/ML ONE (09:58)
--- NOTE | 2019-05-19 12:51 | XRAY ---
7 seconds fluoroscopy time in surgery for right SI joint injection.
[2019-05-19] MEDS ORDERED: Lactated Ringers 1,000 ML IV ONE (18:20)
--- NOTE | 2019-05-21 14:51 | XRAY ---
Indication: Right SI joint injection. Intraoperative fluoroscopy was provided for 7 seconds. 2 digital spot images submitted for interpretation demonstrates posterior needle tip projecting over the inferior right SI joint. Correlated with intraoperative findings/report.
== END 2019-05-19 10:48 | disposition home or self-care (01) ==
LOC: SDC-PAIN 07:50
PROVIDERS: ATTEND Psychiatry & Neurology Pain Medicine
DX: M46.1 Sacroiliitis, not elsewhere classified (principal); E78.5 Hyperlipidemia, unspecified; M79.7 Fibromyalgia; G25.81 Restless legs syndrome; E11.22 Type 2 diabetes mellitus with diabetic chronic kidney disease; I12.9 Hypertensive chronic kidney disease with stage 1 through stage 4 chronic kidney disease, or unspecified chronic kidney disease; N18.4 Chronic kidney disease, stage 4 (severe); G47.30 Sleep apnea, unspecified; F41.8 Other specified anxiety disorders; Z79.899 Other long term (current) drug therapy
CPT/HCPCS: 27096; 72020; 77002; 82962; 99100; J1030; J2704; G0260

== ENCOUNTER 2019-05-26 10:59 | Day surgery (SDC) | payer MEDICARE ==
[2019-05-26] MEDS ORDERED: Depo-Medrol 40 MG/ML IM ONE (11:00)
[2019-05-26] MEDS ORDERED: Marcaine 0.5% SDV 10 ML IJ ONE (11:00)
[2019-05-26] MEDS ORDERED: Xylocaine 1% Vial 30 ML PF IJ ONE (11:00)
[2019-05-26] MEDS ORDERED: Decadron 4 MG INJ IV ONE (11:00)
[2019-05-26] MEDS ORDERED: Ketamine HCl 50 MG/ML ONE (11:46)
[2019-05-26] MEDS ORDERED: DIPRIVAN 200 MG/20 ML IV ONE (11:46)
--- NOTE | 2019-05-26 15:21 | XRAY ---
Indication: Left SI joint and left piriformis injection. Intraoperative fluoroscopy was provided for 18 seconds. 3 digital spot images submitted for interpretation demonstrates posterior needle tip projecting over the inferior left SI joint. Second needle tip projects over the expected left piriformis muscle with small amount of contrast injected for needle tip placement. Correlate with intraoperative findings/report.
--- NOTE | 2019-05-26 15:38 | XRAY ---
18 seconds fluoroscopy time in surgery for left SI joint and left piriformis muscle injection.
[2019-05-26] MEDS ORDERED: Lactated Ringers 1,000 ML IV ONE (16:17)
== END 2019-05-26 12:20 | disposition home or self-care (01) ==
LOC: SDC-PAIN 10:59 → SDC 10:59 → SDC-PAIN 12:20
PROVIDERS: ATTEND Psychiatry & Neurology Pain Medicine
DX: M46.1 Sacroiliitis, not elsewhere classified (principal); E78.5 Hyperlipidemia, unspecified; I15.0 Renovascular hypertension; M79.7 Fibromyalgia; G25.81 Restless legs syndrome; E11.22 Type 2 diabetes mellitus with diabetic chronic kidney disease; N18.4 Chronic kidney disease, stage 4 (severe); G47.30 Sleep apnea, unspecified; Z79.899 Other long term (current) drug therapy
CPT/HCPCS: 72020; 77002; J1030; J1100; J2001; J2704

== ENCOUNTER 2019-06-09 07:57 | Day surgery (SDC) | payer MEDICARE ==
[2019-06-09] MEDS ORDERED: Marcaine 0.5% SDV 10 ML IJ ONE (07:58)
[2019-06-09] MEDS ORDERED: DIPRIVAN 200 MG/20 ML IV ONE (09:20)
[2019-06-09] MEDS ORDERED: Ketamine HCl 50 MG/ML ONE (09:20)
--- NOTE | 2019-06-09 11:00 | XRAY ---
13 seconds fluoroscopy time in surgery for ganglion impar nerve block.
[2019-06-09] MEDS ORDERED: Lactated Ringers 1,000 ML IV ONE (14:33)
--- NOTE | 2019-06-10 08:56 | XRAY ---
Indication: Ganglion nerve block. Intraoperative fluoroscopy was provided for 13 seconds. Single digital spot image submitted for interpretation demonstrates posterior needle tip just anterior to the coccyx. Small amount of contrast injected for needle tip placement. Correlate with intraoperative findings/report.
== END 2019-06-09 09:55 | disposition home or self-care (01) ==
LOC: SDC-PAIN 07:57
PROVIDERS: ATTEND Psychiatry & Neurology Pain Medicine
DX: M53.3 Sacrococcygeal disorders, not elsewhere classified (principal); M47.816 Spondylosis without myelopathy or radiculopathy, lumbar region; M25.511 Pain in right shoulder; M25.512 Pain in left shoulder; M65.839 Other synovitis and tenosynovitis, unspecified forearm; M54.16 Radiculopathy, lumbar region; E11.9 Type 2 diabetes mellitus without complications; E78.5 Hyperlipidemia, unspecified; M79.7 Fibromyalgia; G25.81 Restless legs syndrome; I12.9 Hypertensive chronic kidney disease with stage 1 through stage 4 chronic kidney disease, or unspecified chronic kidney disease; E11.22 Type 2 diabetes mellitus with diabetic chronic kidney disease; N18.4 Chronic kidney disease, stage 4 (severe); G47.30 Sleep apnea, unspecified; I50.9 Heart failure, unspecified; F41.8 Other specified anxiety disorders; Z79.899 Other long term (current) drug therapy
CPT/HCPCS: 64999; 72020; 77002; 82962; 99100; J2704; Q9966

== ENCOUNTER 2019-06-12 12:25 | Emergency (ER) | payer MEDICARE ==
[2019-06-12] MEDS ORDERED: BENADRYL 50 MG/ML IM ONE (12:56)
[2019-06-12] MEDS ORDERED: SUBLIMAZE 100 MCG/2 ML IM ONE (12:56)
--- NOTE | 2019-06-12 13:01 | ERPHSYRPT ---
- History of Present Illness Time Seen by Provider: 06/12/19 12:59 Source: patient Exam Limitations: clinical condition Patient Subjective Stated Complaint: Patient states pain throughout left side and pain is a throbbing pain Triage Nursing Assessment: Patient was brought into ER per W/C per spouse. Patient complaining of throbbing pain in entire left side that is constant. Patient states pain in left lower leg and goes all the way up into back to left arm/shoulder. Patient states had injection on Friday06/11/[address] Tatum. Patient sees pain clinic. Patient states she just had ulrasound of left lower extremity to R/O blood clot. Ultrasound negative. Patient seen Dr. Martin on 06/11. Patient color pale. Lungs diminished throughout A/P. ABD soft obese. Left lower leg with good pedal pulse. Physician History: Patient states pain throughout left side and pain is a throbbing pain Patient complaining of throbbing pain in entire left side that is constant. Patient states pain in left lower leg and goes all the way up into back to left arm/shoulder. Patient states had injection on Friday06/11/[address] Tatum. Patient sees pain clinic. Patient states she just had ulrasound of left lower extremity to R/O blood clot. Ultrasound negative. Patient seen Dr. Martin on 06/11 Timing/Duration: day(s) Method of Injury: unknown Quality: burning Back Pain Location: lumbar spine Back Pain Radiation: lower legs Severity of Pain-Max: severe Severity of Pain-Current: severe Modifying Factors: Improves With: nothing Associated Symptoms: denies symptoms Previous symptoms: recently seen, recently treated Allergies/Adverse Reactions: hydromorphone [From Dilaudid] Allergy (Severe, Verified 06/12/19 12:37) Difficulty Breathing meclofenamic acid [From Meclomen] Allergy (Severe, Verified 06/12/19 12:37) Skin Irritation morphine Allergy (Severe, Verified 06/12/19 12:37) Difficulty Breathing Sulfa (Sulfonamide Antibiotics) Allergy (Severe, Verified 06/12/19 12:37) Extreme constipation ciprofloxacin [From Cipro] Allergy (Intermediate, Verified 06/12/19 12:37) Itching diphenhydramine [From Benadryl] Allergy (Intermediate, Verified 06/12/19 12:37) Swelling of Tongue and Lips iv benadryl a prolbem, but has been able to take by mouth with no problems fexofenadine [From Annmarie] Allergy (Mild, Verified 06/12/19 12:37) Difficulty Swallowing acetaminophen [From Morris] Adverse Reaction (Intermediate, Verified 06/12/19 12: 37) agitaition and hyperactivity amlodipine Adverse Reaction (Intermediate, Verified 06/12/19 12:37) Swelling of Feet betamethasone [From Celestone] Adverse Reaction (Intermediate, Verified 12:37) elvated blood pressure and blood sugar clonidine [From Catapres] Adverse Reaction (Intermediate, Verified 06/12/19 12: 37) Difficulty Breathing clotrimazole [From Lotrimin] Adverse Reaction (Intermediate, Verified 06/12/19 12:37) Skin Irritation colchicine Adverse Reaction (Intermediate, Verified 06/12/19 12:37) Swelling of Joints colesevelam [From WelChol] Adverse Reaction (Intermediate, Verified 06/12/19 12: 37) leg pain enalaprilat [From Vasotec] Adverse Reaction (Intermediate, Verified 06/12/19 12: 37) severe sinus condition escitalopram [From Lexapro] Adverse Reaction (Intermediate, Verified 06/12/19 12 :37) elvated blood sugar fluvastatin [From Lescol] Adverse Reaction (Intermediate, Verified 06/12/19 12: 37) leg pain hydralazine Adverse Reaction (Intermediate, Verified 06/12/19 12:37) dizziness and balance issues hydrocodone [From Morris] Adverse Reaction (Intermediate, Verified 06/12/19 12:37 ) agitaition and hyperactivity lidocaine [From Lidoderm] Adverse Reaction (Intermediate, Verified 06/12/19 12: 37) Nausea and Vomiting metformin Adverse Reaction (Intermediate, Verified 06/12/19 12:37) Diarrhea metronidazole Adverse Reaction (Intermediate, Verified 06/12/19 12:37) Diarrhea oxycodone [From OxyContin] Adverse Reaction (Intermediate, Verified 06/12/19 12: 37) Difficulty Breathing pilocarpine [From Salagen (pilocarpine)] Adverse Reaction (Intermediate, Verified 06/12/19 12:37) Vomiting rosuvastatin [From Crestor] Adverse Reaction (Intermediate, Verified 06/12/19 12 :37) leg cramps terbinafine [From Lamisil] Adverse Reaction (Intermediate, Verified 06/12/19 12: 37) Skin Irritation bupropion [From Wellbutrin] Adverse Reaction (Mild, Verified 06/12/19 12:37) agitation and hyperactivity cholecalciferol (vitamin D3) [From Vitamin D3] Adverse Reaction (Mild, Verified 06/12/19 12:37) burning of tongue and cracked sore lips ezetimibe [From Vytorin] Adverse Reaction (Mild, Verified 06/12/19 12:37) leg cramps lamotrigine [From Lamictal] Adverse Reaction (Mild, Verified 06/12/19 12:37) Stomach Pain lithium Adverse Reaction (Mild, Verified 06/12/19 12:37) Diarrhea simvastatin [From Vytorin] Adverse Reaction (Mild, Verified 06/12/19 12:37) leg cramps ziprasidone [From Geodon] Adverse Reaction (Mild, Verified 06/12/19 12:37) Swelling of Feet Home Medications: Acetaminophen [Tylenol] 650 mg PO TID PRN PRN 08/20/17 [History] Bumetanide [Bumex] 2 mg PO BID 08/20/17 [History] Calcium No.1/D3/B6/FA/B12/Aloe [Vitamin D3-Aloe 1,000 Unit Tab] 2 each PO UD [History] Clonazepam [Klonopin] 0.25 mg PO QID 08/20/17 [History] Duloxetine HCl [Cymbalta] 60 mg PO DAILY 08/20/17 [History] Gabapentin [Neurontin] 600 mg PO QID 08/20/17 [History] Insulin Glargine,Hum.rec.anlog [Tounolan Solostar] 60 unit SQ DAILY 08/20/17 [ History] Isosorbide Mononitrate 30 mg [Imdur 30 MG] 30 mg PO DAILY 08/20/17 [History ] Loratadine 10 mg [Claritin 10 mg] 10 mg PO HS 08/20/17 [History] Multivitamin [Multi-Vitamin Daily] 1 each PO DAILY 08/20/17 [History] Nitroglycerin 0.4 mg Tablet [Nitrostat 0.4 MG Tablet] 0.4 mg SL Q5MIN PRN MR X 3 PRN 08/20/17 [History] Potassium Chloride 10 Meq Tab* [Klor Con 10 MEQ] 50 meq PO DAILY 08/20/17 [ History] Trazodone HCl 50 mg [Desyrel 50 mg] 100 mg PO HS 08/20/17 [History] Metoprolol Succinate 50 mg [Toprol Xl 50 MG] 50 mg PO HS 12/16/17 [History ] Allopurinol [Zyloprim] 300 mg PO HS 03/17/19 [History] Clopidogrel Bisulfate 75 mg [PLAVIX 75 MG Tablet] 75 mg PO DAILY 03/17/19 [History] Insulin Lispro [Humalog] 20 unit SQ AC 03/17/19 [History] Glimepiride 4 mg [Amaryl 4 mg] 4 mg PO DAILY 06/12/19 [History] Hx Tetanus, Diphtheria Vaccination/Date Given: No Hx Influenza Vaccination/Date Given: Yes Hx Pneumococcal Vaccination/Date Given: Yes - Review of Systems Constitutional: No Fever, No Chills Eyes: No Symptoms Ears, Nose, & Throat: No Symptoms Respiratory: No Cough, No Dyspnea Cardiac: No Chest Pain, No Edema, No Syncope Abdominal/Gastrointestinal: No Abdominal Pain, No Nausea, No Vomiting, No Diarrhea Genitourinary Symptoms: No Dysuria Musculoskeletal: Arthralgias, Back Pain, No Neck Pain, No Deformity, No Fall Skin: No Symptoms, No Rash Neurological: No Dizziness, No Focal Weakness, No Sensory Changes Psychological: No Symptoms Endocrine: No Symptoms All Other Systems: Reviewed and Negative - Past Medical History Pertinent Past Medical History: Yes Neurological History: Peripheral Neuropathy ENT History: Cataracts Cardiac History: Other Respiratory History: No Pertinent History Endocrine Medical History: Adrenal Insufficiency, Diabetes Type II Musculoskeletal History: Osteoarthritis GI Medical History: Irritable Bowel History: No Pertinent History, Renal Disease, Other Psycho-Social History: Anxiety, Depression Female Reproductive Disorders: No Pertinent History, Breast Cancer Other Medical History: back surgery, may have to start dialysis, trans aortic valve replacement - Past Surgical History Past Surgical History: Yes Neuro Surgical History: No Pertinent History Cardiac: Other Respiratory: No Pertinent History Gastrointestinal: Appendectomy, Bowel Surgery, Cholecystectomy Genitourinary: No Pertinent History Musculoskeletal: No Pertinent History Female Surgical History: No Pertinent History, Hysterectomy, Section, Tubal Ligation, Lumpectomy Other Surgical History: intestinal bypass and then reverse,sinus surgery times 2 roof/mouth then sinus surgery nose,left foot planters wart,right breast tumor, rt ankle/right leg sx after fx,left breast mastectomy with sentinel removed,6 marek steroid inj,t.a.v.r.-transcatheter aortic value replacement,lumbar laminectomy, steroid injections in back multiple times a year - Social History Smoking Status: Never smoker Exposure to second hand smoke: No Drug Use: none Patient Lives Alone: No - Nursing Vital Signs Nursing Vital Signs: Initial Vital Signs Temperature 96.1 F 06/12/19 12:59 Pulse Rate 76 06/12/19 12:59 Respiratory Rate 20 06/12/19 12:59 Blood Pressure 194/90 06/12/19 12:59 O2 Sat by Pulse Oximetry 97 06/12/19 12:59 Pain Scale Pain Intensity [] 9 Pain Intensity 9 - Physical Exam General Appearance: no apparent distress, alert Eye Exam: PERRL/EOMI, eyes nml inspection Neck Exam: normal inspection, non-tender, supple, full range of motion, No meningismus, No midline tenderness Respiratory Exam: normal breath sounds, lungs clear, No respiratory distress Cardiovascular Exam: regular rate/rhythm, normal heart sounds Gastrointestinal Exam: soft, No tenderness, No mass Extremity Exam: normal inspection, normal range of motion, No calf tenderness, No pedal edema Neurologic Exam: alert, oriented x 3, cooperative, 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, normal mood/affect, nml station & gait, sensation nml, No motor deficits Skin Exam: normal color, warm, dry, No rash - Course Nursing assessment & vital signs reviewed: Yes - CT Exams Lumbar Spine CT Interpretation: Tele-radiologist Report Ordered Tests: Active Orders 24 hr Category Date Time Status LUMBAR SPINE W/O [CT] Stat Exams 06/12/19 12:56 Taken CBC W DIFF Stat Lab 06/12/19 13:13 Completed CMP Stat Lab 06/12/19 13:13 Completed Medication Summary Generic Name Dose Route Start Last Admin Trade Name Freq PRN Reason Stop Dose Admin Clonidine 0.2 mg 06/12/19 14:02 Catapres 0.1 Mg PO 06/12/19 14:03 STAT ONE Discontinued Medications Generic Name Dose Route Start Last Admin Trade Name Chapo PRN Reason Stop Dose Admin Diphenhydramine HCl 50 mg 06/12/19 12:56 06/12/19 13:58 Benadryl 50 Mg/Ml IM 06/12/19 12:57 50 mg STAT ONE Administration Diphenhydramine HCl Confirm 06/12/19 13:51 Benadryl 50 Mg/Ml Administered 06/12/19 13:52 Dose 50 mg .ROUTE .STK-MED ONE Fentanyl Citrate 100 mcg 06/12/19 12:56 06/12/19 13:56 Sublimaze 100 Mcg/2 Ml IM 06/12/19 12:57 100 mcg STAT ONE Administration Fentanyl Citrate Confirm 06/12/19 13:14 Sublimaze 100 Mcg/2 Ml Administered 06/12/19 13:15 Dose 100 mcg .ROUTE .STK-MED ONE Lab/Rad Data: Laboratory Result Diagrams 06/12/19 13:13 06/12/19 13:13 Laboratory Results 06/12/19 06/12/19 Range/Units 13:13 13:13 WBC 8.5 (4.0-10.5) K/mm3 RBC 3.58 L (4.1-5.4) M/mm3 Hgb 11.0 L (12.0-16.0) gm/dl Hct 33.8 L (35-47) % MCV 94.4 (78-100) fl MCH 30.7 (26-32) pg MCHC 32.5 (32-36) g/dl RDW 14.6 H (11.5-14.0) % Plt Count 151 (150-450) K/mm3 MPV 10.5 H (6-9.5) fl Gran % 67.3 H (36.0-66.0) % Eos # (Auto) 0.29 (0-0.5) Absolute Lymphs (auto) 1.84 (1.0-4.6) Absolute Monos (auto) 0.61 (0.0-1.3) Lymphocytes % 21.7 L (24.0-44.0) % Monocytes % 7.2 (0.0-12.0) % Eosinophils % 3.4 (0.00-5.0) % Basophils % 0.4 (0.0-0.4) % Absolute Granulocytes 5.71 (1.4-6.9) Basophils # 0.03 (0-0.4) Sodium 141 (137-145) mmol/L Potassium 4.6 (3.5-5.1) mmol/L Chloride 99 (98-107) mmol/L Carbon Dioxide 35 H (22-30) mmol/L Anion Gap 10.9 (5-15) MEQ/L BUN 27 H (7-17) mg/dL Creatinine 1.53 H (0.52-1.04) mg/dL Estimated GFR 35.7 ML/MIN Glucose 164 H (74-106) mg/dL Calcium 9.4 (8.4-10.2) mg/dL Total Bilirubin 0.40 (0.2-1.3) mg/dL AST 26 (14-36) U/L ALT 24 (0-35) U/L Alkaline Phosphatase 98 (38-126) U/L Serum Total Protein 7.0 (6.3-8.2) g/dL Albumin 3.7 (3.5-5.0) g/dL - Progress Progress: improved, pain not gone completely Counseled pt/family regarding: lab results, diagnosis, need for follow-up, rad results - Departure Departure Disposition: Home Clinical Impression: Neuralgia of left sciatic nerve, Spondylosis of lumbosacral spine with radiculopathy Hypertension Qualifiers: Hypertension type: essential hypertension Qualified Code(s): I10 - Essential ( primary) hypertension Condition: Stable Critical Care Time: No Referrals: SONIA MARTIN MD [Primary Care Provider] - Instructions: Radiculopathy (DC), Sciatica (DC), Low Back Pain in Adults, Sciatica Exercises Additional Instructions: Discharge/Care Plan KORIN EDUARDO was seen on 06/12/19 in the Emergency Room. The patient was counseled regarding Diagnosis,Lab results, Imaging studies, need for follow up and when to return to the Emergency Room. Prescriptions given: Discharge Note I have spoken with the patient and/or caregivers. I have explained the patient' s condition, diagnosis and treatment plan based on the information available to me at this time. I have answered the patient's and/or caregiver's questions and addressed any concerns. The patient and/or caregivers have as good understanding of the patient's diagnosis, condition and treatment plan as can be expected at this point. The vital signs have been stable. The patient's condition is stable and appropriate for discharge from the emergency department. The patient will pursue further outpatient evaluation with the primary care physician or other designated or consulting physician as outlined in the discharge instructions. The patient and/or caregivers are agreeable to this plan of care and follow-up instructions have been explained in detail. The patient and/or caregivers have received these instruction. The patient/and or caregivers are aware that any significant change in condition or worsening of symptoms should prompt an immediate return to this or the closest emergency department or call 911. KORIN EDUARDO was seen on 06/12/19 n the Emergency Room. At that time you were treated for an emergent condition, during your visit Laboratory, Radiology and/or other procedures may have been ordered. It is very important that you follow-up with your Primary Care Physician SONIA MARTIN within the next 24- 48 hours to review your Emergency Room visit and the final results of testing that was ordered. Some test results such as Urine Cultures, Blood Cultures, and other cultures if ordered will not be finalized for 24-48 hours. If you do not have a Primary Care Provider please call the medical records department at [phone] ext [phone] to obtain a copy of your results or you may sign into our patient portal to obtain these results by visiting us @ [email or web address] and completing the following steps: 1. Click on the Patient Portal link 2. Click the Patient Self Enrollment Link to complete the enrollment form and entering your 3. Once the enrollment form is completed you will receive an email with a temporary ID and password at the email address you provided. 4. Next choose a user name and password. Your user name must be at least 4 characters long and your password must be at least 4 characters long. 5. Choose a security question from the list and provide your answer to the question. If you already have signed into the Health Portal you may access your Health Care Information 27/01 by the following steps: 1. Login to our website @ [email or web address] 2. Enter your original user name and password. FAQS The [facility] Health Portal is an online tool that contains your Lab Results, Radiology Reports, Visit History, Discharge Instructions and Health Summary Lab and Radiology Results will not be available for 72 hours on the portal. The Portal is a secure site, passwords are encryted and URLs are re-written so they cannot be copied and pasted. You and authorized family members are the only ones who can access your Portal. Also there is a timeout feature that protects your information if you leave the Portal page open. If you have technical difficulty please use the Contact Us link on the page this will allow you to submit any questions you have regarding the Portal or you may contact the Medical Record Department at [phone] ext [phone].
[2019-06-12] MEDS ORDERED: SUBLIMAZE 100 MCG/2 ML ONE (13:14)
[2019-06-12 13:31] LABS: Absolute Neutrophil Ct (ANC) 5.71 (1.4-6.9); BASOPHIL % 0.4 % (0.0-0.4); Basophil (Absolute #) 0.03 (0-0.4); Eosinophil % 3.4 % (0.00-5.0); Eosinophil (Absolute #) 0.29 (0-0.5); Hematocrit 33.8 % (35-47); Lymphocyte (Absolute #) 1.84 (1.0-4.6); Lymphocytes % 21.7 % (24.0-44.0); Mean Cell Volume 94.4 fl (78-100); Mean Corpuscular Hemoglobin 30.7 pg (26-32); Mean Corpuscular Hgb Concent. 32.5 g/dl (32-36); Mean Platelet Volume 10.5 fl (6-9.5); Monocyte (Absolute #) 0.61 (0.0-1.3); Monocytes % 7.2 % (0.0-12.0); Neutrophil % 67.3 % (36.0-66.0); Platelet Count 151 K/mm3 (150-450); Red Blood Count 3.58 M/mm3 (4.1-5.4); Red Cell Distribution Width 14.6 % (11.5-14.0); White Blood Count 8.5 K/mm3 (4.0-10.5)
[2019-06-12 13:37] LABS: ALBUMIN 3.7 g/dL (3.5-5.0); ANION GAP 10.9 MEQ/L (5-15); BILIRUBIN,TOTAL 0.4 mg/dL (0.2-1.3); Calcium 9.4 mg/dL (8.4-10.2); Creatinine 1 1.53 mg/dL (0.52-1.04); Potassium 4.6 mmol/L (3.5-5.1)
[2019-06-12] MEDS ORDERED: BENADRYL 50 MG/ML ONE (13:51)
[2019-06-12] MEDS ORDERED: Catapres 0.1 MG PO ONE (14:02)
[2019-06-12] MEDS ORDERED: Catapres 0.1 MG ONE (14:05)
[2019-06-12 14:10] VITALS: PULSE 74; O2SAT 99
[2019-06-12 14:33] VITALS: BP 180/82
--- NOTE | 2019-06-12 20:11 | XRAY ---
Indication: Low back pain. Previous laminectomy. Multiple contiguous axial images obtained through the lumbar spine. Sagittal and coronal reformatted images obtained. Comparison: None Osseous structures tubularized. Minimal annular disc osteophyte complex at the T12-L3 levels. At the L3-L4 level, there is degenerative thickened disc phenomena with a large left paracentral disc herniation measuring 1.5 x 1.6 x 2 cm in greatest AP, transverse, and CC projections respectively. Thecal sac effacement with subsequent spinal canal stenosis. Disc bulge produces bilateral foraminal stenosis, right greater than left. At the L4-L5 level, there has been bilateral laminectomy with presumed overlying scar tissue. Degenerative vacuum disc phenomena with small right paracentral/lateral disc herniation measuring 6.6 x 8.0 x 6 cm slightly effacing the thecal sac. Disc bulge also produces bilateral foraminal stenosis, right greater than left. At the L5-S1 level, there is minimal broad-based disc bulge producing bilateral foraminal stenosis. No disc herniation or spinal canal stenosis. Sagittal and coronal reformatted images demonstrates normal lumbar lordosis. 6-7 mm L3 retrolisthesis on L4. No acute compression fracture. Visualized noncontrasted soft tissues demonstrates moderate scattered vascular calcifications without AAA. Impression: 1. L3-L4 large disc herniation with subsequent spinal canal and bilateral foraminal stenosis as detailed. 2. L4-L5 laminectomy with scar tissue. Also small right paracentral/lateral disc herniation effacing the thecal sac. 3. Multilevel degenerative disc disease detailed level by level. Also mild L1 retrolisthesis. 4. Osteopenia and scattered arteriosclerotic disease. Comment: Preliminary interpretation was made by C. No critical discrepancy. CTDI 49.46
== END 2019-06-12 14:33 | disposition home or self-care (01) ==
LOC: ED 12:25
DX: M79.2 Neuralgia and neuritis, unspecified (principal); M54.32 Sciatica, left side; M47.897 Other spondylosis, lumbosacral region; M54.17 Radiculopathy, lumbosacral region; I10 Essential (primary) hypertension
CPT/HCPCS: 36415; 72131; 80053; 85025; 96372; 99284; J1200; J3010; A9270-GY

== ENCOUNTER 2019-06-17 01:10 | Emergency (ER) | payer MEDICARE ==
[2019-06-17 01:31] VITALS: O2SAT 96
[2019-06-17] MEDS ORDERED: SUBLIMAZE 100 MCG/2 ML IV ONE (02:01)
[2019-06-17] MEDS ORDERED: BENADRYL 25 MG CAPSULE PO ONE (02:01)
[2019-06-17] MEDS ORDERED: DECADRON 10MG INJ. IM ONE (02:02)
[2019-06-17] MEDS ORDERED: SUBLIMAZE 100 MCG/2 ML IM ONE (02:08)
[2019-06-17] MEDS ORDERED: SUBLIMAZE 100 MCG/2 ML ONE (02:10)
[2019-06-17] MEDS ORDERED: DECADRON 10MG INJ. ONE (02:10)
[2019-06-17] MEDS ORDERED: BENADRYL 25 MG CAPSULE ONE (02:11)
--- NOTE | 2019-06-17 02:25 | ERPHSYRPT ---
- History of Present Illness Time Seen by Provider: 06/17/19 01:25 Source: patient, family Patient Subjective Stated Complaint: pt states she has had pain in left side of body, was here in er 6 days ago and followee up with dr martin who gave her meloxicam. pt states she still has pain in her left side and wants to be checked out again Triage Nursing Assessment: t alert and oriented, stats pain on l side of body is 7/10/ bp elevated. other vitals wnl Physician History: 69 y/o white female presents with chronic, recurrent and constant left sided pain. it is achy and sharp intermittently with movement. pt is on no medications for this pain. pt sees a pain specialist and her pcp. nothing is helping. pt denies acute injury. pt was asked what has helped her in the past. she and her both stated po benadryl, im fentanyl and im decadron has relieved pain for a couple of days in the past. they are aware i was not going to resolve her pain completely and wont be able to provide her a dx Severity: moderate Modifying Factors: Improves With: movement Associated Symptoms: denies symptoms Allergies/Adverse Reactions: hydromorphone [From Dilaudid] Allergy (Severe, Verified 06/17/19 01:32) Difficulty Breathing meclofenamic acid [From Meclomen] Allergy (Severe, Verified 06/17/19 01:32) Skin Irritation morphine Allergy (Severe, Verified 06/17/19 01:32) Difficulty Breathing Sulfa (Sulfonamide Antibiotics) Allergy (Severe, Verified 06/17/19 01:32) Extreme constipation ciprofloxacin [From Cipro] Allergy (Intermediate, Verified 06/17/19 01:32) Itching diphenhydramine [From Benadryl] Allergy (Intermediate, Verified 06/17/19 01:32) Swelling of Tongue and Lips iv benadryl a prolbem, but has been able to take by mouth with no problems fexofenadine [From Annmarie] Allergy (Mild, Verified 06/17/19 01:32) Difficulty Swallowing acetaminophen [From [place]] Adverse Reaction (Intermediate, Verified 06/17/19 01: 32) agitaition and hyperactivity amlodipine Adverse Reaction (Intermediate, Verified 06/17/19 01:32) Swelling of Feet betamethasone [From Celestone] Adverse Reaction (Intermediate, Verified :32) elvated blood pressure and blood sugar clonidine [From Catapres] Adverse Reaction (Intermediate, Verified 06/17/19: 32) Difficulty Breathing clotrimazole [From Lotrimin] Adverse Reaction (Intermediate, Verified 06/17/19:32) Skin Irritation colchicine Adverse Reaction (Intermediate, Verified 06/17/19:32) Swelling of Joints colesevelam [From WelChol] Adverse Reaction (Intermediate, Verified 06/17/19: 32) leg pain enalaprilat [From Vasotec] Adverse Reaction (Intermediate, Verified 06/17/19: 32) severe sinus condition escitalopram [From Lexapro] Adverse Reaction (Intermediate, Verified 06/17/19 :32) elvated blood sugar fluvastatin [From Lescol] Adverse Reaction (Intermediate, Verified 06/17/19: 32) leg pain hydralazine Adverse Reaction (Intermediate, Verified 06/17/19:32) dizziness and balance issues hydrocodone [From [place]] Adverse Reaction (Intermediate, Verified 06/17/19:32 ) agitaition and hyperactivity lidocaine [From Lidoderm] Adverse Reaction (Intermediate, Verified 06/17/19: 32) Nausea and Vomiting metformin Adverse Reaction (Intermediate, Verified 06/17/19:32) Diarrhea metronidazole Adverse Reaction (Intermediate, Verified 06/17/19:32) Diarrhea oxycodone [From OxyContin] Adverse Reaction (Intermediate, Verified 06/17/19: 32) Difficulty Breathing pilocarpine [From Salagen (pilocarpine)] Adverse Reaction (Intermediate, Verified 06/17/19:32) Vomiting rosuvastatin [From Crestor] Adverse Reaction (Intermediate, Verified 06/17/19 :32) leg cramps terbinafine [From Lamisil] Adverse Reaction (Intermediate, Verified 06/17/19: 32) Skin Irritation bupropion [From Wellbutrin] Adverse Reaction (Mild, Verified 06/17/19:32) agitation and hyperactivity cholecalciferol (vitamin D3) [From Vitamin D3] Adverse Reaction (Mild, Verified 06/17/19 01:32) burning of tongue and cracked sore lips ezetimibe [From Vytorin] Adverse Reaction (Mild, Verified 12/12/19 01:32) leg cramps lamotrigine [From Lamictal] Adverse Reaction (Mild, Verified 06/17/19 01:32) Stomach Pain lithium Adverse Reaction (Mild, Verified 06/17/19 01:32) Diarrhea simvastatin [From Vytorin] Adverse Reaction (Mild, Verified 06/17/19 01:32) leg cramps ziprasidone [From Geodon] Adverse Reaction (Mild, Verified 06/17/19 01:32) Swelling of Feet Home Medications: Acetaminophen [Tylenol] 650 mg PO TID PRN PRN 08/20/17 [History] Bumetanide [Bumex] 2 mg PO BID 08/20/17 [History] Calcium No.1/D3/B6/FA/B12/Aloe [Vitamin D3-Aloe 1,000 Unit Tab] 2 each PO UD [History] Clonazepam [Klonopin] 0.25 mg PO QID 08/20/17 [History] Duloxetine HCl [Cymbalta] 60 mg PO DAILY 08/20/17 [History] Gabapentin [Neurontin] 600 mg PO QID 08/20/17 [History] Insulin Glargine,Hum.rec.anlog [Toujeo Solostar] 60 unit SQ DAILY 08/20/17 [ History] Isosorbide Mononitrate 30 mg [Imdur 30 MG] 30 mg PO DAILY 08/20/17 [History ] Loratadine 10 mg [Claritin 10 mg] 10 mg PO HS 08/20/17 [History] Multivitamin [Multi-Vitamin Daily] 1 each PO DAILY 08/20/17 [History] Nitroglycerin 0.4 mg Tablet [Nitrostat 0.4 MG Tablet] 0.4 mg SL Q5MIN PRN MR X 3 PRN 08/20/17 [History] Potassium Chloride 10 Meq Tab* [Klor Con 10 MEQ] 50 meq PO DAILY 08/20/17 [ History] Trazodone HCl 50 mg [Desyrel 50 mg] 100 mg PO HS 08/20/17 [History] Metoprolol Succinate 50 mg [Toprol Xl 50 MG] 50 mg PO HS 12/16/17 [History ] Allopurinol [Zyloprim] 300 mg PO HS 03/17/19 [History] Clopidogrel Bisulfate 75 mg [PLAVIX 75 MG Tablet] 75 mg PO DAILY 03/17/19 [History] Insulin Lispro [Humalog] 20 unit SQ AC 03/17/19 [History] Glimepiride 4 mg [Amaryl 4 mg] 4 mg PO DAILY 06/12/19 [History] Hx Tetanus, Diphtheria Vaccination/Date Given: No Hx Influenza Vaccination/Date Given: Yes Hx Pneumococcal Vaccination/Date Given: Yes - Review of Systems Constitutional: No Symptoms Eyes: No Symptoms Ears, Nose, & Throat: No Symptoms Respiratory: No Symptoms Cardiac: No Symptoms Abdominal/Gastrointestinal: No Symptoms Genitourinary Symptoms: No Symptoms Musculoskeletal: Other (left side pain from lateral neck to ) Skin: No Symptoms Neurological: No Symptoms Psychological: No Symptoms Endocrine: No Symptoms Hematologic/Lymphatic: No Symptoms Immunological/Allergic: No Symptoms All Other Systems: Reviewed and Negative - Past Medical History Pertinent Past Medical History: Yes Neurological History: Peripheral Neuropathy ENT History: Cataracts Cardiac History: Other Respiratory History: No Pertinent History Endocrine Medical History: Adrenal Insufficiency, Diabetes Type II Musculoskeletal History: Osteoarthritis GI Medical History: Irritable Bowel History: No Pertinent History, Renal Disease, Other Psycho-Social History: Anxiety, Depression Female Reproductive Disorders: No Pertinent History, Breast Cancer Other Medical History: back surgery, may have to start dialysis, trans aortic valve replacement - Past Surgical History Past Surgical History: Yes Neuro Surgical History: No Pertinent History Cardiac: Other Respiratory: No Pertinent History Gastrointestinal: Appendectomy, Bowel Surgery, Cholecystectomy Genitourinary: No Pertinent History Musculoskeletal: No Pertinent History Female Surgical History: No Pertinent History, Hysterectomy, Section, Tubal Ligation, Lumpectomy Other Surgical History: intestinal bypass and then reverse,sinus surgery times 2 roof/mouth then sinus surgery nose,left foot planters wart,right breast tumor, rt ankle/right leg sx after fx,left breast mastectomy with sentinel removed,6 marek steroid inj,t.a.v.r.-transcatheter aortic value replacement,lumbar laminectomy, steroid injections in back multiple times a year - Social History Smoking Status: Never smoker Exposure to second hand smoke: No Drug Use: none Patient Lives Alone: No - Nursing Vital Signs Nursing Vital Signs: Initial Vital Signs Temperature 97.6 F 06/17/19 01:19 Pulse Rate 91 H 06/17/19 01:19 Respiratory Rate 18 06/17/19 01:19 Blood Pressure 160/101 06/17/19 01:19 O2 Sat by Pulse Oximetry 96 06/17/19 01:19 Pain Scale Pain Intensity 8 - Physical Exam General Appearance: moderate distress, alert, anxiety, obese Eye Exam: PERRL/EOMI, eyes nml inspection Ears, Nose, Throat Exam: normal ENT inspection, moist mucous membranes Neck Exam: normal inspection, non-tender, supple, full range of motion Respiratory Exam: normal breath sounds, lungs clear, airway intact, No chest tenderness, No respiratory distress Pelvic Exam: not done Rectal Exam: not done Back Exam: normal inspection, normal range of motion, No CVA tenderness, No vertebral tenderness Extremity Exam: pelvis stable, limited range of motion (secondary to pain), tenderness (entire left lateral side. 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 IM 06/17/19 02:03 10 mg STAT ONE Administration Dexamethasone Sodium Phosphate Confirm 06/17/19 02:10 Decadron 10mg Inj. Administered 06/17/19 02:11 Dose 10 mg .ROUTE .STK-MED ONE Diphenhydramine HCl 50 mg 06/17/19 02:01 Benadryl 25 Mg Capsule PO 06/17/19 02:02 STAT ONE Diphenhydramine HCl Confirm 06/17/19 02:11 Benadryl 25 Mg Capsule Administered 06/17/19 02:12 Dose 25 mg .ROUTE .STK-MED ONE Fentanyl Citrate 25 mcg 06/17/19 02:01 06/17/19 02:15 Sublimaze 100 Mcg/2 Ml IV 06/17/19 02:02 25 mcg STAT ONE Administration Fentanyl Citrate 25 mcg 06/17/19 02:08 06/17/19 02:20 Sublimaze 100 Mcg/2 Ml IM 06/17/19 02:09 Not Given STAT ONE Fentanyl Citrate Confirm 06/17/19 02:10 Sublimaze 100 Mcg/2 Ml Administered 06/17/19 02:11 Dose 100 mcg .ROUTE .STK-MED ONE - Progress Progress: improved, pain not gone completely Progress Note: 06/17/19 02:28 pt clarified how she can take the benadryl. she states she can take as an IM injection but not an IV or oral dose. on 06/12/19, pt received IM benadryl and it was helpful 06/17/19 02:31 Counseled pt/family regarding: diagnosis, need for follow-up - Departure Departure Disposition: Home Clinical Impression: Chronic pain Condition: Stable Critical Care Time: No Referrals: SONIA MARTIN MD [Primary Care Provider] - Additional Instructions: follow up with pain specialist and primary doctor for further management
[2019-06-17] MEDS ORDERED: BENADRYL 50 MG/ML IM ONE (02:47)
[2019-06-17] MEDS ORDERED: BENADRYL 50 MG/ML ONE (02:51)
[2019-06-17 03:00] VITALS: BP 208/96; PULSE 83
== END 2019-06-17 03:07 | disposition home or self-care (01) ==
LOC: ED 01:10
DX: G89.29 Other chronic pain (principal); Z79.899 Other long term (current) drug therapy; G62.9 Polyneuropathy, unspecified; E11.9 Type 2 diabetes mellitus without complications; M19.90 Unspecified osteoarthritis, unspecified site; K58.9 Irritable bowel syndrome, unspecified; N28.9 Disorder of kidney and ureter, unspecified; F41.9 Anxiety disorder, unspecified; F32.9 Major depressive disorder, single episode, unspecified; Z85.3 Personal history of malignant neoplasm of breast
CPT/HCPCS: 96372; 96374; 99284; J1100; J1200; J3010; A9270-GY

== ENCOUNTER 2019-06-20 16:47 | Emergency (ER) | payer MEDICARE ==
[2019-06-20] MEDS ORDERED: SUBLIMAZE 100 MCG/2 ML IM ONE (16:56)
[2019-06-20] MEDS ORDERED: BENADRYL 50 MG/ML IM ONE (16:56)
--- NOTE | 2019-06-20 17:01 | ERPHSYRPT ---
- History of Present Illness Time Seen by Provider: 06/20/19 16:58 Source: patient, family Exam Limitations: no limitations Physician History: 69-year-old female with long history of chronic back pain due to severe degenerative disc disease, started having back pain radiating to the left lower extremity for last 3 weeks for which patient has multiple ER visits. Patient has appointment tomorrow with pain management at [facility]. But her pain got so worse so that she came to the emergency room for some pain relief. Timing/Duration: week(s) Quality: aching Back Pain Location: lumbar spine Back Pain Radiation: lower legs Severity of Pain-Max: severe Severity of Pain-Current: severe Modifying Factors: Improves With: nothing Associated Symptoms: denies symptoms Allergies/Adverse Reactions: hydromorphone [From Dilaudid] Allergy (Severe, Verified 06/17/19 01:32) Difficulty Breathing meclofenamic acid [From Meclomen] Allergy (Severe, Verified 06/17/19 01:32) Skin Irritation morphine Allergy (Severe, Verified 06/17/19 01:32) Difficulty Breathing Sulfa (Sulfonamide Antibiotics) Allergy (Severe, Verified 06/17/19 01:32) Extreme constipation ciprofloxacin [From Cipro] Allergy (Intermediate, Verified 06/17/19 01:32) Itching diphenhydramine [From Benadryl] Allergy (Intermediate, Verified 06/17/19 02:32) Swelling of Tongue and Lips pt unable to take po due to swelling of tongue and lips. Can take IM. fexofenadine [From Annmarie] Allergy (Mild, Verified 06/17/19 01:32) Difficulty Swallowing acetaminophen [From [place]] Adverse Reaction (Intermediate, Verified 06/17/19 01: 32) agitaition and hyperactivity amlodipine Adverse Reaction (Intermediate, Verified 06/17/19 01:32) Swelling of Feet betamethasone [From Celestone] Adverse Reaction (Intermediate, Verified 01:32) elvated blood pressure and blood sugar clonidine [From Catapres] Adverse Reaction (Intermediate, Verified 06/17/19 01: 32) Difficulty Breathing clotrimazole [From Lotrimin] Adverse Reaction (Intermediate, Verified 06/17/19 01:32) Skin Irritation colchicine Adverse Reaction (Intermediate, Verified 06/17/19 01:32) Swelling of Joints colesevelam [From WelChol] Adverse Reaction (Intermediate, Verified 06/17/19 01: 32) leg pain enalaprilat [From Vasotec] Adverse Reaction (Intermediate, Verified 06/17/19 01: 32) severe sinus condition escitalopram [From Lexapro] Adverse Reaction (Intermediate, Verified 06/17/19 01 :32) elvated blood sugar fluvastatin [From Lescol] Adverse Reaction (Intermediate, Verified 06/17/19: 32) leg pain hydralazine Adverse Reaction (Intermediate, Verified 06/17/19:32) dizziness and balance issues hydrocodone [From [place]] Adverse Reaction (Intermediate, Verified 06/17/19 01:32 ) agitaition and hyperactivity lidocaine [From Lidoderm] Adverse Reaction (Intermediate, Verified 06/17/19: 32) Nausea and Vomiting metformin Adverse Reaction (Intermediate, Verified 06/17/19 01:32) Diarrhea metronidazole Adverse Reaction (Intermediate, Verified 06/17/19 01:32) Diarrhea oxycodone [From OxyContin] Adverse Reaction (Intermediate, Verified 06/17/19: 32) Difficulty Breathing pilocarpine [From Salagen (pilocarpine)] Adverse Reaction (Intermediate, Verified 06/17/19 01:32) Vomiting rosuvastatin [From Crestor] Adverse Reaction (Intermediate, Verified 06/17/19 :32) leg cramps terbinafine [From Lamisil] Adverse Reaction (Intermediate, Verified 06/17/19 01: 32) Skin Irritation bupropion [From Wellbutrin] Adverse Reaction (Mild, Verified 06/17/19 01:32) agitation and hyperactivity cholecalciferol (vitamin D3) [From Vitamin D3] Adverse Reaction (Mild, Verified 06/17/19 01:32) burning of tongue and cracked sore lips ezetimibe [From Vytorin] Adverse Reaction (Mild, Verified 06/17/19 01:32) leg cramps lamotrigine [From Lamictal] Adverse Reaction (Mild, Verified 06/17/19 01:32) Stomach Pain lithium Adverse Reaction (Mild, Verified 06/17/19 01:32) Diarrhea simvastatin [From Vytorin] Adverse Reaction (Mild, Verified 06/17/19 01:32) leg cramps ziprasidone [From Geodon] Adverse Reaction (Mild, Verified 06/17/19 01:32) Swelling of Feet Home Medications: Acetaminophen [Tylenol] 650 mg PO TID PRN PRN 08/20/17 [History] Bumetanide [Bumex] 2 mg PO BID 08/20/17 [History] Calcium No.1/D3/B6/FA/B12/Aloe [Vitamin D3-Aloe 1,000 Unit Tab] 2 each PO UD [History] Clonazepam [Klonopin] 0.25 mg PO QID 08/20/17 [History] Duloxetine HCl [Cymbalta] 60 mg PO DAILY 08/20/17 [History] Gabapentin [Neurontin] 600 mg PO QID 08/20/17 [History] Insulin Glargine,Hum.rec.anlog [Toujeo Solostar] 60 unit SQ DAILY 08/20/17 [ History] Isosorbide Mononitrate 30 mg [Imdur 30 MG] 30 mg PO DAILY 08/20/17 [History ] Loratadine 10 mg [Claritin 10 mg] 10 mg PO HS 08/20/17 [History] Multivitamin [Multi-Vitamin Daily] 1 each PO DAILY 08/20/17 [History] Nitroglycerin 0.4 mg Tablet [Nitrostat 0.4 MG Tablet] 0.4 mg SL Q5MIN PRN MR X 3 PRN 08/20/17 [History] Potassium Chloride 10 Meq Tab* [Klor Con 10 MEQ] 50 meq PO DAILY 08/20/17 [ History] Trazodone HCl 50 mg [Desyrel 50 mg] 100 mg PO HS 08/20/17 [History] Metoprolol Succinate 50 mg [Toprol Xl 50 MG] 50 mg PO HS 12/16/17 [History ] Allopurinol [Zyloprim] 300 mg PO HS 03/17/19 [History] Clopidogrel Bisulfate 75 mg [PLAVIX 75 MG Tablet] 75 mg PO DAILY 03/17/19 [History] Insulin Lispro [Humalog] 20 unit SQ AC 03/17/19 [History] Glimepiride 4 mg [Amaryl 4 mg] 4 mg PO DAILY 06/12/19 [History] Hx Tetanus, Diphtheria Vaccination/Date Given: No Hx Influenza Vaccination/Date Given: Yes Hx Pneumococcal Vaccination/Date Given: Yes - Review of Systems Constitutional: No Fever, No Chills Eyes: No Symptoms Ears, Nose, & Throat: No Symptoms Respiratory: No Cough, No Dyspnea Cardiac: No Chest Pain, No Edema, No Syncope Abdominal/Gastrointestinal: No Abdominal Pain, No Nausea, No Vomiting, No Diarrhea Genitourinary Symptoms: No Dysuria Musculoskeletal: Back Pain, No Neck Pain Skin: No Rash Neurological: No Dizziness, No Focal Weakness, No Sensory Changes Psychological: No Symptoms Endocrine: No Symptoms All Other Systems: Reviewed and Negative - Past Medical History Pertinent Past Medical History: Yes Neurological History: Peripheral Neuropathy ENT History: Cataracts Cardiac History: Other Respiratory History: No Pertinent History Endocrine Medical History: Adrenal Insufficiency, Diabetes Type II Musculoskeletal History: Osteoarthritis GI Medical History: Irritable Bowel History: No Pertinent History, Renal Disease, Other Psycho-Social History: Anxiety, Depression Female Reproductive Disorders: No Pertinent History, Breast Cancer Other Medical History: back surgery, may have to start dialysis, trans aortic valve replacement - Past Surgical History Past Surgical History: Yes Neuro Surgical History: No Pertinent History Cardiac: Other Respiratory: No Pertinent History Gastrointestinal: Appendectomy, Bowel Surgery, Cholecystectomy Genitourinary: No Pertinent History Musculoskeletal: No Pertinent History Female Surgical History: No Pertinent History, Hysterectomy, Section, Tubal Ligation, Lumpectomy Other Surgical History: intestinal bypass and then reverse,sinus surgery times 2 roof/mouth then sinus surgery nose,left foot planters wart,right breast tumor, rt ankle/right leg sx after fx,left breast mastectomy with sentinel removed,6 marek steroid inj,t.a.v.r.-transcatheter aortic value replacement,lumbar laminectomy, steroid injections in back multiple times a year - Social History Smoking Status: Never smoker Exposure to second hand smoke: No Drug Use: none Patient Lives Alone: No - Physical Exam General Appearance: no apparent distress, alert Eye Exam: PERRL/EOMI, eyes nml inspection Neck Exam: normal inspection, non-tender, supple, full range of motion, No meningismus, No midline tenderness Respiratory Exam: normal breath sounds, lungs clear, No respiratory distress Cardiovascular Exam: regular rate/rhythm, normal heart sounds Gastrointestinal Exam: soft, No tenderness, No mass Extremity Exam: normal inspection, normal range of motion, No calf tenderness, No pedal edema Neurologic Exam: alert, oriented x 3, cooperative, 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, normal mood/affect, nml station & gait, sensation nml, No motor deficits Skin Exam: normal color, warm, dry, No rash - Course Nursing assessment & vital signs reviewed: Yes Ordered Tests: Medication Summary Discontinued Medications Generic Name Dose Route Start Last Admin Trade Name Shimonq PRN Reason Stop Dose Admin Diphenhydramine HCl 25 mg 06/20/19 16:56 Benadryl 50 Mg/Ml IM 06/20/19 16:57 STAT ONE Fentanyl Citrate 100 mcg 06/20/19 16:56 Sublimaze 100 Mcg/2 Ml IM 06/20/19 16:57 STAT ONE - Progress Progress: improved (pain is tolerable atleast), pain not gone completely Counseled pt/family regarding: diagnosis, need for follow-up - Departure Departure Disposition: Home Clinical Impression: Neuralgia of left sciatic nerve, Spondylosis of lumbosacral spine with radiculopathy Chronic pain Qualifiers: Chronic pain type: chronic pain syndrome Qualified Code(s): G89.4 - Chronic pain syndrome Condition: Stable Critical Care Time: No Referrals: SONIA MARTIN MD [Primary Care Provider] - Additional Instructions: Discharge/Care Plan KORIN EDUARDO was seen on 06/20/19 in the Emergency Room. The patient was counseled regarding Diagnosis,Lab results, Imaging studies, need for follow up and when to return to the Emergency Room. Prescriptions given: Discharge Note I have spoken with the patient and/or caregivers. I have explained the patient' s condition, diagnosis and treatment plan based on the information available to me at this time. I have answered the patient's and/or caregiver's questions and addressed any concerns. The patient and/or caregivers have as good understanding of the patient's diagnosis, condition and treatment plan as can be expected at this point. The vital signs have been stable. The patient's condition is stable and appropriate for discharge from the emergency department. The patient will pursue further outpatient evaluation with the primary care physician or other designated or consulting physician as outlined in the discharge instructions. The patient and/or caregivers are agreeable to this plan of care and follow-up instructions have been explained in detail. The patient and/or caregivers have received these instruction. The patient/and or caregivers are aware that any significant change in condition or worsening of symptoms should prompt an immediate return to this or the closest emergency department or call 911.
[2019-06-20 17:07] VITALS: BP 178/68; PULSE 86; O2SAT 97
[2019-06-20] MEDS ORDERED: BENADRYL 50 MG/ML ONE (17:10)
[2019-06-20] MEDS ORDERED: SUBLIMAZE 100 MCG/2 ML ONE (17:10)
== END 2019-06-20 17:40 | disposition home or self-care (01) ==
LOC: ED 16:47
DX: G58.8 Other specified mononeuropathies (principal); M47.27 Other spondylosis with radiculopathy, lumbosacral region; G89.4 Chronic pain syndrome; M51.17 Intervertebral disc disorders with radiculopathy, lumbosacral region; Z79.899 Other long term (current) drug therapy
CPT/HCPCS: 96372; 99283; J1200; J3010

== ENCOUNTER 2019-06-23 10:05 | Emergency (ER) | payer MEDICARE ==
[2019-06-23] MEDS ORDERED: BENADRYL 50 MG/ML IM ONE (10:31)
[2019-06-23] MEDS ORDERED: SUBLIMAZE 100 MCG/2 ML IM ONE (10:31)
[2019-06-23] MEDS ORDERED: SUBLIMAZE 100 MCG/2 ML ONE (10:40)
[2019-06-23] MEDS ORDERED: BENADRYL 50 MG/ML ONE (10:40)
--- NOTE | 2019-06-23 10:42 | ERPHSYRPT ---
- History of Present Illness Time Seen by Provider: 06/23/19 10:25 Source: patient Exam Limitations: no limitations Physician History: Patient has had a history of chronic low back pain with radiation down the left leg due to degenerative disc disease. Patient had an increase in pain over the last two days. She has an appointment on 06/24/2019 with a pain management nurse practioner. Timing/Duration: week(s) (7), intermittent, gradual onset, worse (over the past two days) Method of Injury: unknown Quality: aching, stabbing Back Pain Location: lumbar spine Back Pain Radiation: lower legs Severity of Pain-Max: severe Severity of Pain-Current: severe Modifying Factors: Worsens With: movement Associated Symptoms: tingling in legs/feet, lower back pain, No fever, No chills , No sweating, No urinary incontinence, No loss of bowel control, No constipation, No nausea, No vomiting, No problems urinating, No light-headedness , No dizziness, No numbness in legs/feet, No weakness, No sensory/motor loss, No muscle spasms Previous symptoms: same symptoms as today, recently seen, recently treated (IM Fentanyl and IM Bendadryl in the emergency department on 06/20/2019) Allergies/Adverse Reactions: hydromorphone [From Dilaudid] Allergy (Severe, Verified 06/23/19 10:49) Difficulty Breathing meclofenamic acid [From Meclomen] Allergy (Severe, Verified 06/23/19 10:49) Skin Irritation morphine Allergy (Severe, Verified 06/23/19 10:49) Difficulty Breathing Sulfa (Sulfonamide Antibiotics) Allergy (Severe, Verified 06/23/19 10:49) Extreme constipation ciprofloxacin [From Cipro] Allergy (Intermediate, Verified 06/23/19 10:49) Itching diphenhydramine [From Benadryl] Allergy (Intermediate, Verified 06/23/19 10:49) Swelling of Tongue and Lips pt unable to take po due to swelling of tongue and lips. Can take IM. fexofenadine [From Annmarie] Allergy (Mild, Verified 06/23/19 10:49) Difficulty Swallowing acetaminophen [From Dunlo] Adverse Reaction (Intermediate, Verified 06/23/19 10: 49) agitaition and hyperactivity amlodipine Adverse Reaction (Intermediate, Verified 06/23/19 10:49) Swelling of Feet betamethasone [From Celestone] Adverse Reaction (Intermediate, Verified 10:49) elvated blood pressure and blood sugar clonidine [From Catapres] Adverse Reaction (Intermediate, Verified 06/23/19 10: 49) Difficulty Breathing clotrimazole [From Lotrimin] Adverse Reaction (Intermediate, Verified 06/23/19 10:49) Skin Irritation colchicine Adverse Reaction (Intermediate, Verified 06/23/19 10:49) Swelling of Joints colesevelam [From WelChol] Adverse Reaction (Intermediate, Verified 06/23/19 10: 49) leg pain enalaprilat [From Vasotec] Adverse Reaction (Intermediate, Verified 06/23/19 10: 49) severe sinus condition escitalopram [From Lexapro] Adverse Reaction (Intermediate, Verified 06/23/19 10 :49) elvated blood sugar fluvastatin [From Lescol] Adverse Reaction (Intermediate, Verified 06/23/19 10: 49) leg pain hydralazine Adverse Reaction (Intermediate, Verified 06/23/19 10:49) dizziness and balance issues hydrocodone [From Dunlo] Adverse Reaction (Intermediate, Verified 06/23/19 10:49 ) agitaition and hyperactivity lidocaine [From Lidoderm] Adverse Reaction (Intermediate, Verified 06/23/19 10: 49) Nausea and Vomiting metformin Adverse Reaction (Intermediate, Verified 06/23/19 10:49) Diarrhea metronidazole Adverse Reaction (Intermediate, Verified 06/23/19 10:49) Diarrhea oxycodone [From OxyContin] Adverse Reaction (Intermediate, Verified 06/23/19 10: 49) Difficulty Breathing pilocarpine [From Salagen (pilocarpine)] Adverse Reaction (Intermediate, Verified 06/23/19 10:49) Vomiting rosuvastatin [From Crestor] Adverse Reaction (Intermediate, Verified 06/23/19 10 :49) leg cramps terbinafine [From Lamisil] Adverse Reaction (Intermediate, Verified 06/23/19 10: 49) Skin Irritation bupropion [From Wellbutrin] Adverse Reaction (Mild, Verified 06/23/19 10:49) agitation and hyperactivity cholecalciferol (vitamin D3) [From Vitamin D3] Adverse Reaction (Mild, Verified 06/23/19 10:49) burning of tongue and cracked sore lips ezetimibe [From Vytorin] Adverse Reaction (Mild, Verified 06/23/19 10:49) leg cramps lamotrigine [From Lamictal] Adverse Reaction (Mild, Verified 06/23/19 10:49) Stomach Pain lithium Adverse Reaction (Mild, Verified 06/23/19 10:49) Diarrhea simvastatin [From Vytorin] Adverse Reaction (Mild, Verified 06/23/19 10:49) leg cramps ziprasidone [From Geodon] Adverse Reaction (Mild, Verified 06/23/19 10:49) Swelling of Feet Home Medications: Acetaminophen [Tylenol] 650 mg PO TID PRN PRN 08/20/17 [History] Bumetanide [Bumex] 2 mg PO BID 08/20/17 [History] Calcium No.1/D3/B6/FA/B12/Aloe [Vitamin D3-Aloe 1,000 Unit Tab] 2 each PO UD [History] Clonazepam [Klonopin] 0.25 mg PO QID 08/20/17 [History] Duloxetine HCl [Cymbalta] 60 mg PO DAILY 08/20/17 [History] Gabapentin [Neurontin] 600 mg PO QID 08/20/17 [History] Insulin Glargine,Hum.rec.anlog [[place] Solostar] 60 unit SQ DAILY 08/20/17 [ History] Isosorbide Mononitrate 30 mg [Imdur 30 MG] 30 mg PO DAILY 08/20/17 [History ] Loratadine 10 mg [Claritin 10 mg] 10 mg PO HS 08/20/17 [History] Multivitamin [Multi-Vitamin Daily] 1 each PO DAILY 08/20/17 [History] Nitroglycerin 0.4 mg Tablet [Nitrostat 0.4 MG Tablet] 0.4 mg SL Q5MIN PRN MR X 3 PRN 08/20/17 [History] Potassium Chloride 10 Meq Tab* [Klor Con 10 MEQ] 50 meq PO DAILY 08/20/17 [ History] Trazodone HCl 50 mg [Desyrel 50 mg] 100 mg PO HS 08/20/17 [History] Metoprolol Succinate 50 mg [Toprol Xl 50 MG] 50 mg PO HS 12/16/17 [History ] Allopurinol [Zyloprim] 300 mg PO HS 03/17/19 [History] Clopidogrel Bisulfate 75 mg [PLAVIX 75 MG Tablet] 75 mg PO DAILY 03/17/19 [History] Insulin Lispro [Humalog] 20 unit SQ AC 03/17/19 [History] Glimepiride 4 mg [Amaryl 4 mg] 4 mg PO DAILY 06/12/19 [History] Hx Tetanus, Diphtheria Vaccination/Date Given: No Hx Influenza Vaccination/Date Given: Yes Hx Pneumococcal Vaccination/Date Given: Yes - Review of Systems Constitutional: No Fever, No Chills Eyes: No Symptoms Ears, Nose, & Throat: No Symptoms Respiratory: No Cough, No Dyspnea Cardiac: No Chest Pain, No Edema, No Syncope Abdominal/Gastrointestinal: No Abdominal Pain, No Nausea, No Vomiting, No Diarrhea, No Hematemesis, No Hematochezia, No Melena Genitourinary Symptoms: No Dysuria, No Hematuria, No Urinary Retention, No Flank Pain Musculoskeletal: Back Pain, No Neck Pain, No Fall Skin: No Rash Neurological: No Dizziness, No Focal Weakness, No Headache, No Parasthesia, No Sensory Changes Psychological: No Symptoms Endocrine: No Polydipsia, No Excessive Sweating Hematologic/Lymphatic: No Easy Bleeding, No Easy Bruising All Other Systems: Reviewed and Negative - Past Medical History Pertinent Past Medical History: Yes Neurological History: Peripheral Neuropathy ENT History: Cataracts Cardiac History: Other Respiratory History: No Pertinent History Endocrine Medical History: Adrenal Insufficiency, Diabetes Type II Musculoskeletal History: Osteoarthritis GI Medical History: Irritable Bowel History: No Pertinent History, Renal Disease, Other Psycho-Social History: Anxiety, Depression Female Reproductive Disorders: No Pertinent History, Breast Cancer Other Medical History: back surgery, may have to start dialysis, trans aortic valve replacement - Past Surgical History Past Surgical History: Yes Neuro Surgical History: No Pertinent History Cardiac: Other Respiratory: No Pertinent History Gastrointestinal: Appendectomy, Bowel Surgery, Cholecystectomy Genitourinary: No Pertinent History Musculoskeletal: No Pertinent History Female Surgical History: No Pertinent History, Hysterectomy, Section, Tubal Ligation, Lumpectomy Other Surgical History: intestinal bypass and then reverse,sinus surgery times 2 roof/mouth then sinus surgery nose,left foot planters wart,right breast tumor, rt ankle/right leg sx after fx,left breast mastectomy with sentinel removed,6 marek steroid inj,t.a.v.r.-transcatheter aortic value replacement,lumbar laminectomy, steroid injections in back multiple times a year - Social History Smoking Status: Never smoker Exposure to second hand smoke: No Drug Use: none Patient Lives Alone: No - Nursing Vital Signs Nursing Vital Signs: Initial Vital Signs Temperature 96.6 F 06/23/19 10:26 Pulse Rate 87 06/23/19 10:26 Respiratory Rate 18 06/23/19 10:26 Blood Pressure 193/94 06/23/19 10:26 O2 Sat by Pulse Oximetry 97 06/23/19 10:26 Pain Scale Pain Intensity [] 10 Pain Intensity 9 - Physical Exam General Appearance: no apparent distress, alert Eye Exam: PERRL/EOMI, eyes nml inspection, No scleral icterus Neck Exam: normal inspection, non-tender, supple, full range of motion, No meningismus, No midline tenderness Respiratory Exam: normal breath sounds, lungs clear, No respiratory distress Cardiovascular Exam: regular rate/rhythm, normal heart sounds, capillary refill <2 sec Gastrointestinal Exam: soft, normal bowel sounds, No tenderness, No distention, No mass, No guarding, No rebound Back Exam: No CVA tenderness, No vertebral tenderness, No rash, No point tenderness Extremity Exam: normal inspection, normal range of motion, pelvis stable, No calf tenderness, No bruce's sign, No pedal edema, No swelling Peripheral Pulses: dorsalis-pedis (R): 2+, dorsalis-pedis (L): 2+ Neurologic Exam: alert, oriented x 3, cooperative, drink mixer II-XII nml as tested, normal mood/affect, sensation nml, No motor deficits Skin Exam: normal color, warm, dry, No rash SpO2 Interpretation: normal O2 Delivery: Room Air - Course Nursing assessment & vital signs reviewed: Yes - CT Exams Lumbar Spine CT Interpretation: Other (CT Lumbar Spine: 06/12/2019: Impression: 1. L3-L4 large disc herniation with subsequent spinal canal and bilateral. 2. L4-L5 laminectomy with scar tissue. Also small right paracentral/lateral disc herniation effacing the thecal sac. 3. Multilevel degenerative disc disease detailed level by level. Also mild L1 retrolisthesis. 4. Osteopenia and scattered arteriosclerotic disease.) Ordered Tests: Active Orders 24 hr Category Date Time Status UA W/RFX UR CULTURE Stat Lab 06/23/19 10:54 Completed Medication Summary Discontinued Medications Generic Name Dose Route Start Last Admin Trade Name Shimonq PRN Reason Stop Dose Admin Diphenhydramine HCl 50 mg 06/23/19 10:31 06/23/19 10:45 Benadryl 50 Mg/Ml IM 06/23/19 10:32 50 mg STAT ONE Administration Diphenhydramine HCl Confirm 06/23/19 10:40 Benadryl 50 Mg/Ml Administered 06/23/19 10:41 Dose 50 mg .ROUTE .STK-MED ONE Fentanyl Citrate 100 mcg 06/23/19 10:31 06/23/19 10:45 Sublimaze 100 Mcg/2 Ml IM 06/23/19 10:32 100 mcg STAT ONE Administration Fentanyl Citrate Confirm 06/23/19 10:40 Sublimaze 100 Mcg/2 Ml Administered 06/23/19 10:41 Dose 100 mcg .ROUTE .STK-MED ONE Lab/Rad Data: Laboratory Results 06/23/19 Range/Units 10:54 Urine Color STRAW (YELLOW) Urine Appearance CLEAR (CLEAR) Urine pH 6.0 (5-6) Ur Specific [place] 1.009 (1.005-1.025) Urine Protein NEGATIVE (Negative) Urine Ketones NEGATIVE (NEGATIVE) Urine Blood NEGATIVE (0-5) Tulio/ul Urine Nitrite NEGATIVE (NEGATIVE) Urine Bilirubin NEGATIVE (NEGATIVE) Urine Urobilinogen NEGATIVE (0-1) mg/dL Ur Leukocyte Esterase NEGATIVE (NEGATIVE) Urine WBC (Auto) NONE (0-5) /HPF Urine RBC (Auto) NONE (0-2) /HPF U Epithel Cells (Auto) NONE (FEW) /HPF Urine Bacteria (Auto) NONE (NEGATIVE) /HPF Urine Culture Reflexed NO (NO) Urine Glucose 50 (NEGATIVE) mg/dL - Progress Progress: improved Progress Note: 06/23/19 10:44 I have reviewed the last 2 emergency department progress notes from 06/17/2019 and 06/20/[address] lumbar spine performed on 06/12/2019. The progress note for 06/20/2019 is from the emergency room attending who also is the patient's primary care physician. 06/23/19 12:14 Patient's pain has significantly improved and feels much better. Patient has no new focal neurologic deficits in the lower extremities bilaterally. 06/23/19 12:30 patient at this time does not require any inpatient evaluation or transfer to a tertiary care center with neurosurgical or orthopedic spine auto radiator specialist evaluation as she had no concerning symptoms or any acute focal neurologic deficits seen on examination today and her pain was adequately controlled after medication in the emergency department. Patient has an appointment with anesthesia pain management on 06/24/2019 and she is to keep that appointment. I explained in detail with patient and her family what signs and symptoms to return back to the emergency department including any new weakness, Sensation, any fever, new blood and urine, and the blood in stool, urinary retention, diarrhea she cannot control, bilateral reticular symptoms, perineal numbness or any other concerning signs or symptoms that were not present at today's visit for immediate reevaluation in the emergency department. Counseled pt/family regarding: diagnosis, need for follow-up, rad results - Departure Departure Disposition: Home Clinical Impression: Lumbar herniated disc, Acute exacerbation of chronic low back pain, Sciatica of left side, Spondylosis of lumbosacral spine with radiculopathy Hypertension Qualifiers: Hypertension type: essential hypertension Qualified Code(s): I10 - Essential ( primary) hypertension Condition: Good Critical Care Time: No Referrals: SONIA MARTIN MD [Primary Care Provider] - 06/24/19 Instructions: Chronic Pain (DC), Sciatica (DC) Additional Instructions: Return immediately back to the emergency department if you have any new loss of bowel or bladder control, bilateral symptoms in her legs, loss of sensation in her legs, loss of strength in her legs, new fever, and abdominal pain, new blood in her stool, no blood in her urine, or any other concerning signs or symptoms that were not present at today's emergency department visit for immediate reevaluation in the emergency department.
[2019-06-23 11:28] VITALS: BP 163/83; PULSE 79; O2SAT 95
[2019-06-23 12:06] LABS: Appearance CLEAR (CLEAR); Bilirubin NEGATIVE (NEGATIVE); Blood NEGATIVE Ery/ul (0-5); Glucose 50 mg/dL (NEGATIVE); Ketones NEGATIVE (NEGATIVE); Leukocyte Esterase NEGATIVE (NEGATIVE); Nitrite NEGATIVE (NEGATIVE); Protein,Urine Dip NEGATIVE (Negative); Specific Gravity 1.009 (1.005-1.025); Urobilinogen NEGATIVE mg/dL (0-1)
== END 2019-06-23 13:24 | disposition home or self-care (01) ==
LOC: ED 10:05
DX: I10 Essential (primary) hypertension (principal); M51.26 Other intervertebral disc displacement, lumbar region; M54.5 Low back pain; G89.29 Other chronic pain; M54.42 Lumbago with sciatica, left side; M47.27 Other spondylosis with radiculopathy, lumbosacral region; Z79.899 Other long term (current) drug therapy; E11.9 Type 2 diabetes mellitus without complications
CPT/HCPCS: 81001; 96372; 99284; J1200; J3010

== ENCOUNTER 2019-06-26 10:49 | Emergency (ER) | payer MEDICARE ==
[2019-06-26 11:18] VITALS: BP 193/85; PULSE 89; O2SAT 98
--- NOTE | 2019-06-26 11:36 | ERPHSYRPT ---
- History of Present Illness Source: patient Exam Limitations: no limitations Patient Subjective Stated Complaint: Pt states "I have been here allot and I always get 100 mcg fentanyl and 25 of benadryl and it works for 2 days then I have to come back. I am having left sided pain." Triage Nursing Assessment: Pt presented alert and oriented X 3, skin pwd Pt able to speak in clear full sentences. PT moaning, laying on her right lateral side. Pt stated if we do not do what they want us to do they will just leave and go to [facility]. Pt slightly aggressive. Physician History: Patient is here with chronic back pain. The history is provided by the . He states patient has a known long history of chronic back pain. She has seen a spine surgeon, chronic pain physician, and seen at the ER multiple times. As I walk in the room, the patient's immediately demands 100 mcg of IV fentanyl and IV Benadryl. They state this is what she usually gets in the emergency department. I was able to ascertain patient has had no new or different symptoms. She has no neurological issues, no saddle anesthesia, no new or different pain. She has no falls or trauma. Timing/Duration: other (chronic ) Quality: aching Back Pain Location: lumbar spine Severity of Pain-Max: moderate Severity of Pain-Current: moderate Modifying Factors: Improves With: other (chronic ) Associated Symptoms: No sensory/motor loss, No tingling in legs/feet Allergies/Adverse Reactions: hydromorphone [From Dilaudid] Allergy (Severe, Verified 06/23/19 10:49) Difficulty Breathing meclofenamic acid [From Meclomen] Allergy (Severe, Verified 06/23/19 10:49) Skin Irritation morphine Allergy (Severe, Verified 06/23/19 10:49) Difficulty Breathing Sulfa (Sulfonamide Antibiotics) Allergy (Severe, Verified 06/23/19 10:49) Extreme constipation ciprofloxacin [From Cipro] Allergy (Intermediate, Verified 06/23/19 10:49) Itching diphenhydramine [From Benadryl] Allergy (Intermediate, Verified 06/23/19 10:49) Swelling of Tongue and Lips pt unable to take po due to swelling of tongue and lips. Can take IM. fexofenadine [From Annmarie] Allergy (Mild, Verified 06/23/19 10:49) Difficulty Swallowing acetaminophen [From [place]] Adverse Reaction (Intermediate, Verified 06/23/19 10: 49) agitaition and hyperactivity amlodipine Adverse Reaction (Intermediate, Verified 06/23/19 10:49) Swelling of Feet betamethasone [From Celestone] Adverse Reaction (Intermediate, Verified 10:49) elvated blood pressure and blood sugar clonidine [From Catapres] Adverse Reaction (Intermediate, Verified 06/23/19 10: 49) Difficulty Breathing clotrimazole [From Lotrimin] Adverse Reaction (Intermediate, Verified 06/23/19 10:49) Skin Irritation colchicine Adverse Reaction (Intermediate, Verified 06/23/19 10:49) Swelling of Joints colesevelam [From WelChol] Adverse Reaction (Intermediate, Verified 06/23/19 10: 49) leg pain enalaprilat [From Vasotec] Adverse Reaction (Intermediate, Verified 06/23/19 10: 49) severe sinus condition escitalopram [From Lexapro] Adverse Reaction (Intermediate, Verified 06/23/19 10 :49) elvated blood sugar fluvastatin [From Lescol] Adverse Reaction (Intermediate, Verified 06/23/19 10: 49) leg pain hydralazine Adverse Reaction (Intermediate, Verified 06/23/19 10:49) dizziness and balance issues hydrocodone [From [place]] Adverse Reaction (Intermediate, Verified 06/23/19 10:49 ) agitaition and hyperactivity lidocaine [From Lidoderm] Adverse Reaction (Intermediate, Verified 06/23/19 10: 49) Nausea and Vomiting metformin Adverse Reaction (Intermediate, Verified 06/23/19 10:49) Diarrhea metronidazole Adverse Reaction (Intermediate, Verified 06/23/19 10:49) Diarrhea oxycodone [From OxyContin] Adverse Reaction (Intermediate, Verified 06/23/19 10: 49) Difficulty Breathing pilocarpine [From Salagen (pilocarpine)] Adverse Reaction (Intermediate, Verified 06/23/19 10:49) Vomiting rosuvastatin [From Crestor] Adverse Reaction (Intermediate, Verified 06/23/19 10 :49) leg cramps terbinafine [From Lamisil] Adverse Reaction (Intermediate, Verified 06/23/19 10: 49) Skin Irritation bupropion [From Wellbutrin] Adverse Reaction (Mild, Verified 06/23/19 10:49) agitation and hyperactivity cholecalciferol (vitamin D3) [From Vitamin D3] Adverse Reaction (Mild, Verified 06/23/19 10:49) burning of tongue and cracked sore lips ezetimibe [From Vytorin] Adverse Reaction (Mild, Verified 06/23/19 10:49) leg cramps lamotrigine [From Lamictal] Adverse Reaction (Mild, Verified 06/23/19 10:49) Stomach Pain lithium Adverse Reaction (Mild, Verified 06/23/19 10:49) Diarrhea simvastatin [From Vytorin] Adverse Reaction (Mild, Verified 06/23/19 10:49) leg cramps ziprasidone [From Geodon] Adverse Reaction (Mild, Verified 06/23/19 10:49) Swelling of Feet Home Medications: Acetaminophen [Tylenol] 650 mg PO TID PRN PRN 08/20/17 [History] Bumetanide [Bumex] 2 mg PO BID 08/20/17 [History] Calcium No.1/D3/B6/FA/B12/Aloe [Vitamin D3-Aloe 1,000 Unit Tab] 2 each PO UD [History] Clonazepam [Klonopin] 0.25 mg PO QID 08/20/17 [History] Duloxetine HCl [Cymbalta] 60 mg PO DAILY 08/20/17 [History] Gabapentin [Neurontin] 600 mg PO QID 08/20/17 [History] Insulin Glargine,Hum.rec.anlog [Toujeo Solostar] 60 unit SQ DAILY 08/20/17 [ History] Isosorbide Mononitrate 30 mg [Imdur 30 MG] 30 mg PO DAILY 08/20/17 [History ] Loratadine 10 mg [Claritin 10 mg] 10 mg PO HS 08/20/17 [History] Multivitamin [Multi-Vitamin Daily] 1 each PO DAILY 08/20/17 [History] Nitroglycerin 0.4 mg Tablet [Nitrostat 0.4 MG Tablet] 0.4 mg SL Q5MIN PRN MR X 3 PRN 08/20/17 [History] Potassium Chloride 10 Meq Tab* [Klor Con 10 MEQ] 50 meq PO DAILY 08/20/17 [ History] Trazodone HCl 50 mg [Desyrel 50 mg] 100 mg PO HS 08/20/17 [History] Metoprolol Succinate 50 mg [Toprol Xl 50 MG] 50 mg PO HS 12/16/17 [History ] Allopurinol [Zyloprim] 300 mg PO HS 03/17/19 [History] Clopidogrel Bisulfate 75 mg [PLAVIX 75 MG Tablet] 75 mg PO DAILY 03/17/19 [History] Insulin Lispro [Humalog] 20 unit SQ AC 03/17/19 [History] Glimepiride 4 mg [Amaryl 4 mg] 4 mg PO DAILY 06/12/19 [History] Hx Tetanus, Diphtheria Vaccination/Date Given: Yes Hx Influenza Vaccination/Date Given: Yes Hx Pneumococcal Vaccination/Date Given: Yes Immunizations Up to Date: Yes - Review of Systems Constitutional: No Fever, No Chills Eyes: No Symptoms Ears, Nose, & Throat: No Symptoms Respiratory: No Cough, No Dyspnea Cardiac: No Chest Pain, No Edema, No Syncope Abdominal/Gastrointestinal: No Abdominal Pain, No Nausea, No Vomiting, No Diarrhea Genitourinary Symptoms: No Dysuria Musculoskeletal: Back Pain, No Neck Pain Skin: No Rash Neurological: No Dizziness, No Focal Weakness, No Sensory Changes Psychological: No Symptoms Endocrine: No Symptoms All Other Systems: Reviewed and Negative - Past Medical History Pertinent Past Medical History: Yes Neurological History: Peripheral Neuropathy ENT History: Cataracts Cardiac History: Other Respiratory History: No Pertinent History Endocrine Medical History: Adrenal Insufficiency, Diabetes Type II Musculoskeletal History: Osteoarthritis GI Medical History: Irritable Bowel History: No Pertinent History, Renal Disease, Other Psycho-Social History: Anxiety, Depression Female Reproductive Disorders: No Pertinent History, Breast Cancer Other Medical History: back surgery, may have to start dialysis, trans aortic valve replacement - Past Surgical History Past Surgical History: Yes Neuro Surgical History: No Pertinent History Cardiac: Other Respiratory: No Pertinent History Gastrointestinal: Appendectomy, Bowel Surgery, Cholecystectomy Genitourinary: No Pertinent History Musculoskeletal: No Pertinent History Female Surgical History: No Pertinent History, Hysterectomy, Section, Tubal Ligation, Lumpectomy Other Surgical History: intestinal bypass and then reverse,sinus surgery times 2 roof/mouth then sinus surgery nose,left foot planters wart,right breast tumor, rt ankle/right leg sx after fx,left breast mastectomy with sentinel removed,6 marek steroid inj,t.a.v.r.-transcatheter aortic value replacement,lumbar laminectomy, steroid injections in back multiple times a year - Social History Smoking Status: Never smoker Exposure to second hand smoke: No Drug Use: none Patient Lives Alone: No - Female History Hx Now: No - Nursing Vital Signs Nursing Vital Signs: Initial Vital Signs Temperature 97.7 F 06/26/19 11:11 Pulse Rate 89 06/26/19 11:11 Respiratory Rate 18 06/26/19 11:11 Blood Pressure 193/85 06/26/19 11:11 O2 Sat by Pulse Oximetry 98 06/26/19 11:11 Pain Scale Pain Intensity [Left 10 Generalized] Pain Intensity 10 - Physical Exam General Appearance: mild distress Eye Exam: PERRL/EOMI Ears, Nose, Throat Exam: normal ENT inspection Neck Exam: normal inspection Respiratory Exam: normal breath sounds SpO2: 98 Comments: I was unable to perform full neurological exam secondary to leaving against medical advice. - Progress Progress: unchanged Progress Note: 06/26/19 11:44 Patient's is immediately demanding narcotic upon my entry into the room. I was unable to exam the patient secondary to his brusque demeanor. I did explain in detail that chronic opioid use is not likely to help her chronic pain. Also, that if patient does require chronic opioids, she would need to obtain those through her PCP. Patient has been seen several times already this week for opioids in the emeremgency department. I also stated appropriate management of acute pain is a cornerstone of high-quality emergency department care. Prescription drug abuse has become an issue of national importance. Pain management should be patient centered and evidence-based. I discussed with and patient the evidence shows that opioids do not expedite return to work, do not improve functional outcomes, and there is no difference in outcomes between opioids and non-opioid medications. Opioid overuse and abuse has risen to epidemic levels resulting in significant morbidity and mortality. Utilizing evidence-based recommendations, to reduce the risks associated with opioid and other controlled substance abuse and misuse , providing controlled substances in this case is likely not beneficial over the level of risk involved. I have offered a nonnarcotic alternative as a first- line therapy instead of controlled substances. Nonpharmacologic management of pain such as ice to and immobilization of an injured or painful area, elevation of injured joints/extremities, warm blankets or heating pads, noise reduction, light control in the room, [id number] topical and oral analgesics and distraction techniques are all options. The patient is referred for outpatient pain management. After my indepth conversation, they made the decision to leave against medical advice without a full physical being performed. They understand the risks and benefits associated with morbidity and mortality with leaving AMA. They understand they can return at anytime to complete the evaluation. Counseled pt/family regarding: diagnosis, need for follow-up - Departure Departure Disposition: Home Clinical Impression: Chronic back pain Condition: Stable Critical Care Time: No Referrals: SONIA MARTIN MD [Primary Care Provider] -
== END 2019-06-26 11:45 | disposition left against medical advice (07) ==
LOC: ED 10:49
DX: M54.9 Dorsalgia, unspecified (principal); G89.29 Other chronic pain; Z79.899 Other long term (current) drug therapy; Z79.4 Long term (current) use of insulin
CPT/HCPCS: 99283

== ENCOUNTER 2019-09-14 10:01 | Emergency (ER) | payer MEDICARE ==
--- NOTE | 2019-09-14 10:11 | ERPHSYRPT ---
- History of Present Illness Time Seen by Provider: 09/14/19 10:10 Source: patient, family, EMS Physician History: Is a 77-year-old obese white female with a history of insulin-dependent diabetes , coronary artery disease with cardiac stents, chronic low back pain and chronic left sciatica as well as hypertension who presents with an acute exacerbation of her lower back pain. Patient has several episodes of this. The patient and her are very specific on what helps relieve her acute exacerbations of back pain. Patient denies any falls or traumas. Patient is scheduled for an evaluation of cardiac clearance today by her monotyper. However her pain worsened and she could not make that appointment in [place]. The cardiac clearance is for back surgery which the patient states she needs. Both the patient and the state that what helps her the most for 2 days of back pain relief is intramuscular Benadryl 50 mg, intramuscular fentanyl 25 mcg, and intramuscular Decadron 10 mg. Timing/Duration: today, sudden Method of Injury: other (No injury) Quality: sharp, stabbing Back Pain Location: lumbar spine Back Pain Radiation: buttocks Severity of Pain-Max: moderate Severity of Pain-Current: moderate Associated Symptoms: lower back pain Previous symptoms: same symptoms as today Allergies/Adverse Reactions: hydromorphone [From Dilaudid] Allergy (Severe, Verified 06/23/19 10:49) Difficulty Breathing meclofenamic acid [From Meclomen] Allergy (Severe, Verified 06/23/19 10:49) Skin Irritation morphine Allergy (Severe, Verified 06/23/19 10:49) Difficulty Breathing Sulfa (Sulfonamide Antibiotics) Allergy (Severe, Verified 06/23/19 10:49) Extreme constipation ciprofloxacin [From Cipro] Allergy (Intermediate, Verified 06/23/19 10:49) Itching diphenhydramine [From Benadryl] Allergy (Intermediate, Verified 06/23/19 10:49) Swelling of Tongue and Lips pt unable to take po due to swelling of tongue and lips. Can take IM. fexofenadine [From Annmarie] Allergy (Mild, Verified 06/23/19 10:49) Difficulty Swallowing acetaminophen [From [place]] Adverse Reaction (Intermediate, Verified 06/23/19 10: 49) agitaition and hyperactivity amlodipine Adverse Reaction (Intermediate, Verified 06/23/19 10:49) Swelling of Feet betamethasone [From Celestone] Adverse Reaction (Intermediate, Verified 10:49) elvated blood pressure and blood sugar clonidine [From Catapres] Adverse Reaction (Intermediate, Verified 06/23/19 10: 49) Difficulty Breathing clotrimazole [From Lotrimin] Adverse Reaction (Intermediate, Verified 06/23/19 10:49) Skin Irritation colchicine Adverse Reaction (Intermediate, Verified 06/23/19 10:49) Swelling of Joints colesevelam [From WelChol] Adverse Reaction (Intermediate, Verified 06/23/19 10: 49) leg pain enalaprilat [From Vasotec] Adverse Reaction (Intermediate, Verified 06/23/19 10: 49) severe sinus condition escitalopram [From Lexapro] Adverse Reaction (Intermediate, Verified 06/23/19 10 :49) elvated blood sugar fluvastatin [From Lescol] Adverse Reaction (Intermediate, Verified 06/23/19 10: 49) leg pain hydralazine Adverse Reaction (Intermediate, Verified 06/23/19 10:49) dizziness and balance issues hydrocodone [From [place]] Adverse Reaction (Intermediate, Verified 06/23/19 10:49 ) agitaition and hyperactivity lidocaine [From Lidoderm] Adverse Reaction (Intermediate, Verified 06/23/19 10: 49) Nausea and Vomiting metformin Adverse Reaction (Intermediate, Verified 06/23/19 10:49) Diarrhea metronidazole Adverse Reaction (Intermediate, Verified 06/23/19 10:49) Diarrhea oxycodone [From OxyContin] Adverse Reaction (Intermediate, Verified 06/23/19 10: 49) Difficulty Breathing pilocarpine [From Salagen (pilocarpine)] Adverse Reaction (Intermediate, Verified 06/23/19 10:49) Vomiting rosuvastatin [From Crestor] Adverse Reaction (Intermediate, Verified 06/23/19 10 :49) leg cramps terbinafine [From Lamisil] Adverse Reaction (Intermediate, Verified 06/23/19 10: 49) Skin Irritation bupropion [From Wellbutrin] Adverse Reaction (Mild, Verified 06/23/19 10:49) agitation and hyperactivity cholecalciferol (vitamin D3) [From Vitamin D3] Adverse Reaction (Mild, Verified 06/23/19 10:49) burning of tongue and cracked sore lips ezetimibe [From Vytorin] Adverse Reaction (Mild, Verified 06/23/19 10:49) leg cramps lamotrigine [From Lamictal] Adverse Reaction (Mild, Verified 06/23/19 10:49) Stomach Pain lithium Adverse Reaction (Mild, Verified 06/23/19 10:49) Diarrhea simvastatin [From Vytorin] Adverse Reaction (Mild, Verified 06/23/19 10:49) leg cramps ziprasidone [From Geodon] Adverse Reaction (Mild, Verified 06/23/19 10:49) Swelling of Feet Home Medications: Acetaminophen [Tylenol] 650 mg PO TID PRN PRN 08/20/17 [History] Bumetanide [Bumex] 2 mg PO BID 08/20/17 [History] Calcium No.1/D3/B6/FA/B12/Aloe [Vitamin D3-Aloe 1,000 Unit Tab] 2 each PO UD [History] Clonazepam [Klonopin] 0.25 mg PO QID 08/20/17 [History] Duloxetine HCl [Cymbalta] 60 mg PO DAILY 08/20/17 [History] Gabapentin [Neurontin] 600 mg PO QID 08/20/17 [History] Insulin Glargine,Hum.rec.anlog [Toujeo Solostar] 60 unit SQ DAILY 08/20/17 [ History] Isosorbide Mononitrate 30 mg [Imdur 30 MG] 30 mg PO DAILY 08/20/17 [History ] Loratadine 10 mg [Claritin 10 mg] 10 mg PO HS 08/20/17 [History] Multivitamin [Multi-Vitamin Daily] 1 each PO DAILY 08/20/17 [History] Nitroglycerin 0.4 mg Tablet [Nitrostat 0.4 MG Tablet] 0.4 mg SL Q5MIN PRN MR X 3 PRN 08/20/17 [History] Potassium Chloride 10 Meq Tab* [Klor Con 10 MEQ] 50 meq PO DAILY 08/20/17 [ History] Trazodone HCl 50 mg [Desyrel 50 mg] 100 mg PO HS 08/20/17 [History] Metoprolol Succinate 50 mg [Toprol Xl 50 MG] 50 mg PO HS 12/16/17 [History ] Allopurinol [Zyloprim] 300 mg PO HS 03/17/19 [History] Clopidogrel Bisulfate 75 mg [PLAVIX 75 MG Tablet] 75 mg PO DAILY 03/17/19 [History] Insulin Lispro [Humalog] 20 unit SQ AC 03/17/19 [History] Glimepiride 4 mg [Amaryl 4 mg] 4 mg PO DAILY 06/12/19 [History] Hx Tetanus, Diphtheria Vaccination/Date Given: Yes Hx Influenza Vaccination/Date Given: Yes Hx Pneumococcal Vaccination/Date Given: Yes - Review of Systems Constitutional: No Symptoms Eyes: No Symptoms Ears, Nose, & Throat: No Symptoms Respiratory: No Symptoms Cardiac: No Symptoms Abdominal/Gastrointestinal: No Symptoms Genitourinary Symptoms: No Symptoms Musculoskeletal: Back Pain Skin: No Symptoms Neurological: No Symptoms Psychological: No Symptoms Endocrine: No Symptoms Hematologic/Lymphatic: No Symptoms Immunological/Allergic: No Symptoms All Other Systems: Reviewed and Negative - Past Medical History Pertinent Past Medical History: Yes Neurological History: Peripheral Neuropathy ENT History: Cataracts Cardiac History: Other Respiratory History: No Pertinent History Endocrine Medical History: Adrenal Insufficiency, Diabetes Type II Musculoskeletal History: Osteoarthritis GI Medical History: Irritable Bowel History: No Pertinent History, Renal Disease, Other Psycho-Social History: Anxiety, Depression Female Reproductive Disorders: No Pertinent History, Breast Cancer Other Medical History: back surgery, may have to start dialysis, trans aortic valve replacement - Past Surgical History Past Surgical History: Yes Neuro Surgical History: No Pertinent History Cardiac: Other Respiratory: No Pertinent History Gastrointestinal: Appendectomy, Bowel Surgery, Cholecystectomy Genitourinary: No Pertinent History Musculoskeletal: No Pertinent History Female Surgical History: No Pertinent History, Hysterectomy, Section, Tubal Ligation, Lumpectomy Other Surgical History: intestinal bypass and then reverse,sinus surgery times 2 roof/mouth then sinus surgery nose,left foot planters wart,right breast tumor, rt ankle/right leg sx after fx,left breast mastectomy with sentinel removed,6 marek steroid inj,t.a.v.r.-transcatheter aortic value replacement,lumbar laminectomy, steroid injections in back multiple times a year - Social History Smoking Status: Never smoker Exposure to second hand smoke: No Drug Use: none Patient Lives Alone: No - Nursing Vital Signs Nursing Vital Signs: Initial Vital Signs Temperature 97.6 F 09/14/19 10:15 Pulse Rate 83 09/14/19 10:15 Respiratory Rate 16 09/14/19 10:15 Blood Pressure 190/98 09/14/19 10:15 O2 Sat by Pulse Oximetry 97 09/14/19 10:15 Pain Scale Pain Intensity [Back] 10 Pain Intensity 10 - Physical Exam General Appearance: moderate distress, alert, anxiety, obese Eye Exam: PERRL/EOMI, eyes nml inspection Ears, Nose, Throat Exam: normal ENT inspection, moist mucous membranes Neck Exam: normal inspection, non-tender, supple, full range of motion Respiratory Exam: airway intact, No chest tenderness, No respiratory distress Cardiovascular Exam: regular rate/rhythm, normal heart sounds, normal peripheral pulses Gastrointestinal Exam: No tenderness Pelvic Exam: not done Rectal Exam: not done Back Exam: decreased range of motion, muscle spasm Extremity Exam: normal inspection, normal range of motion, pelvis stable Neurologic Exam: alert, oriented x 3, cooperative, stripper latex II-XII nml as tested Skin Exam: normal color, warm, dry Lymphatic Exam: No adenopathy O2 Delivery: Room Air - Course Nursing assessment & vital signs reviewed: Yes Ordered Tests: Medication Summary Discontinued Medications Generic Name Dose Route Start Last Admin Trade Name Freq PRN Reason Stop Dose Admin Dexamethasone Sodium Phosphate 10 mg 09/14/19 10:24 Decadron 10mg Inj. IM 09/14/19 10:25 STAT ONE Diphenhydramine HCl 50 mg 09/14/19 10:23 Benadryl 50 Mg/Ml IM 09/14/19 10:24 STAT ONE Fentanyl Citrate 25 mcg 09/14/19 10:25 Sublimaze 100 Mcg/2 Ml IM 09/14/19 10:26 STAT ONE - Progress Progress Note: 09/14/19 10:34 This patient has a fentanyl patch 50 mcg on which is scheduled to be changed tomorrow. I discussed this with the patient's spouse. He is aware that we cannot give the patient 100 mcg of fentanyl intramuscularly. Counseled pt/family regarding: diagnosis, need for follow-up - Departure Departure Disposition: Home Clinical Impression: Acute exacerbation of chronic low back pain Condition: Stable Critical Care Time: No Referrals: SONIA MARTIN MD [Primary Care Provider] - Additional Instructions: Resume your medications as prescribed. Follow-up with your monotyper, back surgeon, and primary care physician for management of your chronic low back pain. Monitor your blood sugar closely and treat accordingly.
[2019-09-14] MEDS ORDERED: BENADRYL 50 MG/ML IM ONE (10:23)
[2019-09-14] MEDS ORDERED: DECADRON 10MG INJ. IM ONE (10:24)
[2019-09-14] MEDS ORDERED: SUBLIMAZE 100 MCG/2 ML IM ONE (10:25)
[2019-09-14] MEDS ORDERED: SUBLIMAZE 100 MCG/2 ML ONE (10:28)
[2019-09-14] MEDS ORDERED: DECADRON 10MG INJ. ONE (10:30)
[2019-09-14] MEDS ORDERED: BENADRYL 50 MG/ML ONE (10:30)
[2019-09-14 11:23] VITALS: BP 160/80; PULSE 76; O2SAT 96
== END 2019-09-14 11:32 | disposition home or self-care (01) ==
LOC: ED 10:01
DX: M54.42 Lumbago with sciatica, left side (principal); I25.10 Atherosclerotic heart disease of native coronary artery without angina pectoris; Z85.3 Personal history of malignant neoplasm of breast; Z95.2 Presence of prosthetic heart valve; I12.9 Hypertensive chronic kidney disease with stage 1 through stage 4 chronic kidney disease, or unspecified chronic kidney disease; N18.4 Chronic kidney disease, stage 4 (severe); Z79.899 Other long term (current) drug therapy
CPT/HCPCS: 96372; 99284; J1100; J1200; J3010

== ENCOUNTER 2019-10-20 12:25 | Observation (INO) | payer MEDICARE ==
[2019-10-20] MEDS ORDERED: Sodium Chloride 0.9% 1000 ML 1,000 ML IV STA (13:07)
--- NOTE | 2019-10-20 13:20 | ERPHSYRPT ---
- History of Present Illness Time Seen by Provider: 10/20/19 12:55 Source: patient Exam Limitations: no limitations Patient Subjective Stated Complaint: pt here for being tired the last 3 days, she was at drs office to clementina labs drawn today and the were unable to draw Triage Nursing Assessment: pt arrived per wc alert and oriented, she was able to undress and get self undressed. resp easy, skin warm,dry and pale Physician History: Patient is a 69-year-old female who presents to our ED for evaluation of feeling tired and fatigued. Patient advises that she has been experiencing intermittent "chest pressure" over the past week. Patient also states she has a history of stage IV renal insufficiency. Patient went to have her labs drawn for her routine visit and staff was unsuccessful at obtaining blood. Patient presents to our ED for blood draw as well as for evaluation of fatigue. Fatigue has been ongoing for approximately 1 week. It has been constant. It is not associated with pain. No chest pain or shortness of breath. No nausea vomiting or diaphoresis. No diarrhea. No trauma. Symptoms are mild to moderate intensity. No specific worsening or improving factors. Patient voices no other complaints at this time. Timing/Duration: week(s) Severity: moderate Modifying Factors: Improves With: nothing Associated Symptoms: No nausea, No vomiting, No abdominal pain, No shortness of breath, No heartburn, No diaphoresis, No cough, No chills, No chest pain, No fever, No headaches, No loss of appetite, No syncope, No seizure, No weakness Allergies/Adverse Reactions: hydromorphone [From Dilaudid] Allergy (Severe, Verified 10/20/19 13:04) Difficulty Breathing meclofenamic acid [From Meclomen] Allergy (Severe, Verified 10/20/19 13:04) Skin Irritation morphine Allergy (Severe, Verified 10/20/19 13:04) Difficulty Breathing Sulfa (Sulfonamide Antibiotics) Allergy (Severe, Verified 10/20/19 13:04) Extreme constipation ciprofloxacin [From Cipro] Allergy (Intermediate, Verified 10/20/19 13:04) Itching diphenhydramine [From Benadryl] Allergy (Intermediate, Verified 10/20/19 13:04) Swelling of Tongue and Lips pt unable to take po due to swelling of tongue and lips. Can take IM. fexofenadine [From Annmarie] Allergy (Mild, Verified 10/20/19 13:04) Difficulty Swallowing acetaminophen [From Stowell] Adverse Reaction (Intermediate, Verified 10/20/19 13: 04) agitaition and hyperactivity amlodipine Adverse Reaction (Intermediate, Verified 10/20/19 13:04) Swelling of Feet betamethasone [From Celestone] Adverse Reaction (Intermediate, Verified 13:04) elvated blood pressure and blood sugar clonidine [From Catapres] Adverse Reaction (Intermediate, Verified 10/20/19 13: 04) Difficulty Breathing clotrimazole [From Lotrimin] Adverse Reaction (Intermediate, Verified 10/20/19 13:04) Skin Irritation colchicine Adverse Reaction (Intermediate, Verified 10/20/19 13:04) Swelling of Joints colesevelam [From WelChol] Adverse Reaction (Intermediate, Verified 10/20/19 13: 04) leg pain enalaprilat [From Vasotec] Adverse Reaction (Intermediate, Verified 10/20/19 13: 04) severe sinus condition escitalopram [From Lexapro] Adverse Reaction (Intermediate, Verified 10/20/19 13 :04) elvated blood sugar fluvastatin [From Lescol] Adverse Reaction (Intermediate, Verified 10/20/19 13: 04) leg pain hydralazine Adverse Reaction (Intermediate, Verified 10/20/19 13:04) dizziness and balance issues hydrocodone [From Stowell] Adverse Reaction (Intermediate, Verified 10/20/19 13:04 ) agitaition and hyperactivity lidocaine [From Lidoderm] Adverse Reaction (Intermediate, Verified 10/20/19 13: 04) Nausea and Vomiting metformin Adverse Reaction (Intermediate, Verified 10/20/19 13:04) Diarrhea metronidazole Adverse Reaction (Intermediate, Verified 10/20/19 13:04) Diarrhea oxycodone [From OxyContin] Adverse Reaction (Intermediate, Verified 10/20/19 13: 04) Difficulty Breathing pilocarpine [From Salagen (pilocarpine)] Adverse Reaction (Intermediate, Verified 10/20/19 13:04) Vomiting rosuvastatin [From Crestor] Adverse Reaction (Intermediate, Verified 10/20/19 13 :04) leg cramps terbinafine [From Lamisil] Adverse Reaction (Intermediate, Verified 10/20/19 13: 04) Skin Irritation bupropion [From Wellbutrin] Adverse Reaction (Mild, Verified 10/20/19 13:04) agitation and hyperactivity cholecalciferol (vitamin D3) [From Vitamin D3] Adverse Reaction (Mild, Verified 10/20/19 13:04) burning of tongue and cracked sore lips ezetimibe [From Vytorin] Adverse Reaction (Mild, Verified 10/20/19 13:04) leg cramps lamotrigine [From Lamictal] Adverse Reaction (Mild, Verified 10/20/19 13:04) Stomach Pain lithium Adverse Reaction (Mild, Verified 10/20/19 13:04) Diarrhea simvastatin [From Vytorin] Adverse Reaction (Mild, Verified 10/20/19 13:04) leg cramps ziprasidone [From Geodon] Adverse Reaction (Mild, Verified 10/20/19 13:04) Swelling of Feet buspirone Adverse Reaction (Verified 10/20/19 13:04) Home Medications: Acetaminophen [Tylenol] 650 mg PO TID PRN PRN 08/20/17 [History] Bumetanide [Bumex] 2 mg PO BID 08/20/17 [History] Calcium No.1/D3/B6/FA/B12/Aloe [Vitamin D3-Aloe 1,000 Unit Tab] 2 each PO UD [History] Duloxetine HCl [Cymbalta] 60 mg PO DAILY 08/20/17 [History] Gabapentin [Neurontin] 600 mg PO QID 08/20/17 [History] Insulin Glargine,Hum.rec.anlog [[place] Solostar] 60 unit SQ DAILY 08/20/17 [ History] Isosorbide Mononitrate 30 mg [Imdur 30 MG] 30 mg PO DAILY 08/20/17 [History ] Loratadine 10 mg [Claritin 10 mg] 10 mg PO HS 08/20/17 [History] Multivitamin [Multi-Vitamin Daily] 1 each PO DAILY 08/20/17 [History] Nitroglycerin 0.4 mg Tablet [Nitrostat 0.4 MG Tablet] 0.4 mg SL Q5MIN PRN MR X 3 PRN 08/20/17 [History] Potassium Chloride 10 Meq Tab* [Klor Con 10 MEQ] 50 meq PO DAILY 08/20/17 [ History] Trazodone HCl 50 mg [Desyrel 50 mg] 100 mg PO HS 08/20/17 [History] Metoprolol Succinate 50 mg [Toprol Xl 50 MG] 50 mg PO HS 12/16/17 [History ] Allopurinol [Zyloprim] 300 mg PO HS 03/17/19 [History] Clopidogrel Bisulfate 75 mg [PLAVIX 75 MG Tablet] 75 mg PO DAILY 03/17/19 [History] Insulin Lispro [Humalog] 20 unit SQ AC 03/17/19 [History] Glimepiride 4 mg [Amaryl 4 mg] 4 mg PO DAILY 06/12/19 [History] Amlodipine Besylate 10 mg DAILY 10/20/19 [History] Aspirin 81 gm Chew [Baby Aspirin 81 mg Chew] 1 ea DAILY 10/20/19 [History] Losartan Potassium 25 mg DAILY 10/20/19 [History] Olanzapine 2.5 mg TID 10/20/19 [History] Tramadol HCl 50 mg [Ultram 50 mg] 50 mg QID 10/20/19 [History] Hx Tetanus, Diphtheria Vaccination/Date Given: Yes Hx Influenza Vaccination/Date Given: Yes Hx Pneumococcal Vaccination/Date Given: Yes Immunizations Up to Date: Yes Travel Risk - International Travel Have you traveled outside of the country in past 3 weeks: No Have you or anyone close to you been diagnosed with or: No Do your reside in a community with a known COVID-19 case?: Yes If Yes where:: [place] - Coronavirus Screening Has patient experienced Coronavirus symptoms: No - Review of Systems Constitutional: No Symptoms, Other (Patient sitting up in bed. She is conversant well-appearing and in no acute distress.), No Fever, No Chills Eyes: No Symptoms Ears, Nose, & Throat: No Symptoms Respiratory: No Symptoms, No Cough, No Dyspnea Cardiac: No Symptoms, No Chest Pain, No Edema, No Syncope Abdominal/Gastrointestinal: No Symptoms, No Abdominal Pain, No Nausea, No Vomiting, No Diarrhea Genitourinary Symptoms: No Symptoms, No Dysuria Musculoskeletal: No Symptoms, No Back Pain, No Neck Pain Skin: No Symptoms, No Rash Neurological: No Symptoms, No Dizziness, No Focal Weakness, No Headache, No Parasthesia, No Seizure, No Sensory Changes Psychological: No Symptoms Endocrine: No Symptoms All Other Systems: Reviewed and Negative - Past Medical History Pertinent Past Medical History: Yes Neurological History: Peripheral Neuropathy ENT History: Cataracts Cardiac History: Other Respiratory History: No Pertinent History Endocrine Medical History: Adrenal Insufficiency, Diabetes Type II Musculoskeletal History: Osteoarthritis GI Medical History: Irritable Bowel History: No Pertinent History, Renal Disease, Other Psycho-Social History: Anxiety, Depression Female Reproductive Disorders: No Pertinent History, Breast Cancer Other Medical History: back surgery, may have to start dialysis, trans aortic valve replacement - Past Surgical History Past Surgical History: Yes Neuro Surgical History: No Pertinent History Cardiac: Other Respiratory: No Pertinent History Gastrointestinal: Appendectomy, Bowel Surgery, Cholecystectomy Genitourinary: No Pertinent History Musculoskeletal: No Pertinent History Female Surgical History: No Pertinent History, Hysterectomy, Section, Tubal Ligation, Lumpectomy Other Surgical History: intestinal bypass and then reverse,sinus surgery times 2 roof/mouth then sinus surgery nose,left foot planters wart,right breast tumor, rt ankle/right leg sx after fx,left breast mastectomy with sentinel removed,6 marek steroid inj,t.a.v.r.-transcatheter aortic value replacement,lumbar laminectomy, steroid injections in back multiple times a year - Social History Smoking Status: Never smoker Exposure to second hand smoke: No Drug Use: none Patient Lives Alone: No - Female History Hx Last Menstrual Period: post Hx Now: No - Nursing Vital Signs Nursing Vital Signs: Initial Vital Signs Temperature 97.7 F 10/20/19 12:48 Pulse Rate 89 10/20/19 12:48 Respiratory Rate 20 10/20/19 12:48 Blood Pressure 208/87 10/20/19 12:48 O2 Sat by Pulse Oximetry 98 10/20/19 12:48 Pain Scale Pain Intensity 2 - Physical Exam General Appearance: no apparent distress, alert Eye Exam: PERRL/EOMI, eyes nml inspection Ears, Nose, Throat Exam: normal ENT inspection, TMs normal, pharynx normal, moist mucous membranes Neck Exam: normal inspection, non-tender, supple, full range of motion Respiratory Exam: normal breath sounds, lungs clear, No respiratory distress Cardiovascular Exam: regular rate/rhythm, normal heart sounds, normal peripheral pulses Gastrointestinal/Abdomen Exam: soft, normal bowel sounds, No tenderness, No mass Back Exam: normal inspection, normal range of motion, No CVA tenderness, No vertebral tenderness Extremity Exam: normal inspection, normal range of motion, pelvis stable Neurologic Exam: alert, oriented x 3, cooperative, normal mood/affect, nml cerebellar function, nml station & gait, sensation nml, No motor deficits Skin Exam: normal color, warm, dry, No rash Lymphatic Exam: No adenopathy SpO2 Interpretation: normal SpO2: 97 O2 Delivery: Room Air - Course Nursing assessment & vital signs reviewed: Yes EKG Interpreted by Me: RATE, Sinus Rhythm, Left [place] Deviation, NORMAL INTERVALS - Radiology Exams Chest X-ray Interpretation: Teleradiologist Report (No acute pathology) Ordered Tests: Active Orders 24 hr Category Date Time Status Human Resources Project Manager STAT Care 10/20/19 13:09 Active EKG-ER Only STAT Care 10/20/19 13:07 Active IV Insertion STAT Care 10/20/19 13:07 Active Isolation, Initiate & Maintain Q4H Care 10/20/19 13:02 Active Pulse Oximetry (ED) STAT Care 10/20/19 13:07 Active CHEST 1 VIEW (PORTABLE) Stat Exams 10/20/19 13:09 Completed CBC W DIFF Stat Lab 10/20/19 13:15 Completed CMP Stat Lab 10/20/19 13:15 Completed CULTURE,URINE Stat Lab 10/20/19 14:16 Received TROPONIN Q3H Lab 10/20/19 13:15 Completed TROPONIN Q3H Lab 10/20/19 16:15 Ordered TROPONIN Q3H Lab 10/20/19 19:15 Ordered TROPONIN Q3H Lab 10/20/19 22:15 Ordered TROPONIN Q3H Lab 10/21/19 01:15 Ordered UA W/RFX UR CULTURE Stat Lab 10/20/19 14:16 Completed Transfer Order Routine Transfer 10/20/19 Ordered Medication Summary Discontinued Medications Generic Name Dose Route Start Last Admin Trade Name Freq PRN Reason Stop Dose Admin Aspirin 324 mg 10/20/19 14:41 10/20/19 14:44 Baby Aspirin 81 Mg Chew PO 10/20/19 14:42 324 mg STAT ONE Administration Aspirin Confirm 10/20/19 14:44 Baby Aspirin 81 Mg Chew Administered 10/20/19 14:45 Dose 324 mg .ROUTE .STK-MED ONE Sodium Chloride 1,000 mls @ 999 mls/hr 10/20/19 13:07 10/20/19 13:55 Sodium Chloride 0.9% 1000 Ml IV 10/20/19 14:07 999 mls/hr .Q1H1M STA Administration Sodium Chloride Confirm 10/20/19 13:53 Sodium Chloride 0.9% 1000 Ml Administered 10/20/19 13:54 Dose 1,000 mls @ ud .ROUTE .STK-MED ONE Lab/Rad Data: Laboratory Result Diagrams 10/20/19 13:15 10/20/19 13:15 Laboratory Results 10/20/19 10/20/19 10/20/19 Range/Units 14:16 13:15 13:15 WBC (4.0-10.5) K/mm3 RBC (4.1-5.4) M/mm3 Hgb (12.0-16.0) gm/dl Hct (35-47) % MCV (78-100) fl MCH (26-32) pg MCHC (32-36) g/dl RDW (11.5-14.0) % Plt Count (150-450) K/mm3 MPV (7.5-11.0) fl Gran % (36.0-66.0) % Eos # (Auto) (0-0.5) Absolute Lymphs (auto) (1.0-4.6) Absolute Monos (auto) (0.0-1.3) Lymphocytes % (24.0-44.0) % Monocytes % (0.0-12.0) % Eosinophils % (0.00-5.0) % Basophils % (0.0-0.4) % Absolute Granulocytes (1.4-6.9) Basophils # (0-0.4) Sodium 142 (137-145) mmol/L Potassium 3.7 (3.5-5.1) mmol/L Chloride 101 (98-107) mmol/L Carbon Dioxide 31 H (22-30) mmol/L Anion Gap 13.2 (5-15) MEQ/L BUN 22 H (7-17) mg/dL Creatinine 1.49 H (0.52-1.04) mg/dL Estimated GFR 36.8 ML/MIN Glucose 181 H (74-106) mg/dL Calcium 9.6 (8.4-10.2) mg/dL Total Bilirubin 0.50 (0.2-1.3) mg/dL AST 23 (14-36) U/L ALT 18 (0-35) U/L Alkaline Phosphatase 111 (38-126) U/L Troponin I 0.044 H* (0.000-0.034) ng/mL Serum Total Protein 7.0 (6.3-8.2) g/dL Albumin 3.9 (3.5-5.0) g/dL Urine Color STRAW (YELLOW) Urine Appearance CLEAR (CLEAR) Urine pH 5.0 (5-6) Ur Specific [place] 1.006 (1.005-1.025) Urine Protein NEGATIVE (Negative) Urine Ketones NEGATIVE (NEGATIVE) Urine Blood SMALL (0-5) Tulio/ul Urine Nitrite NEGATIVE (NEGATIVE) Urine Bilirubin NEGATIVE (NEGATIVE) Urine Urobilinogen NEGATIVE (0-1) mg/dL Ur Leukocyte Esterase TRACE (NEGATIVE) Urine WBC (Auto) 11-15 (0-5) /HPF Urine RBC (Auto) 3-5 (0-2) /HPF U Epithel Cells (Auto) NONE (FEW) /HPF Urine Bacteria (Auto) FEW (NEGATIVE) /HPF Urine Culture Reflexed YES (NO) Urine Glucose NEGATIVE (NEGATIVE) mg/dL 10/20/19 Range/Units 13:15 WBC 9.4 (4.0-10.5) K/mm3 RBC 3.85 L (4.1-5.4) M/mm3 Hgb 12.1 (12.0-16.0) gm/dl Hct 36.6 (35-47) % MCV 95.1 (78-100) fl MCH 31.4 (26-32) pg MCHC 33.1 (32-36) g/dl RDW 14.9 H (11.5-14.0) % Plt Count 171 (150-450) K/mm3 MPV 10.0 (7.5-11.0) fl Gran % 67.7 H (36.0-66.0) % Eos # (Auto) 0.39 (0-0.5) Absolute Lymphs (auto) 1.82 (1.0-4.6) Absolute Monos (auto) 0.82 (0.0-1.3) Lymphocytes % 19.3 L (24.0-44.0) % Monocytes % 8.7 (0.0-12.0) % Eosinophils % 4.1 (0.00-5.0) % Basophils % 0.2 (0.0-0.4) % Absolute Granulocytes 6.37 (1.4-6.9) Basophils # 0.02 (0-0.4) Sodium (137-145) mmol/L Potassium (3.5-5.1) mmol/L Chloride (98-107) mmol/L Carbon Dioxide (22-30) mmol/L Anion Gap (5-15) MEQ/L BUN (7-17) mg/dL Creatinine (0.52-1.04) mg/dL Estimated GFR ML/MIN Glucose (74-106) mg/dL Calcium (8.4-10.2) mg/dL Total Bilirubin (0.2-1.3) mg/dL AST (14-36) U/L ALT (0-35) U/L Alkaline Phosphatase (38-126) U/L Troponin I (0.000-0.034) ng/mL Serum Total Protein (6.3-8.2) g/dL Albumin (3.5-5.0) g/dL Urine Color (YELLOW) Urine Appearance (CLEAR) Urine pH (5-6) Ur Specific [place] (1.005-1.025) Urine Protein (Negative) Urine Ketones (NEGATIVE) Urine Blood (0-5) Tulio/ul Urine Nitrite (NEGATIVE) Urine Bilirubin (NEGATIVE) Urine Urobilinogen (0-1) mg/dL Ur Leukocyte Esterase (NEGATIVE) Urine WBC (Auto) (0-5) /HPF Urine RBC (Auto) (0-2) /HPF U Epithel Cells (Auto) (FEW) /HPF Urine Bacteria (Auto) (NEGATIVE) /HPF Urine Culture Reflexed (NO) Urine Glucose (NEGATIVE) mg/dL - Progress Progress: improved Progress Note: 10/20/19 14:54 Patient reassessed. No active chest pain. Patient takes aspirin daily however has not taken her aspirin today. Aspirin 325 chewable administered. Work-up reveals a mildly elevated troponin. In light of patient's history of cardiac stents, intermittent chest pressure and elevated troponin we decided to admit patient for further evaluation and treatment. Case discussed with Dr. Martin who agrees with admission. Case discussed with Dr. Gonzalez who accepts admission to observation. Plan of care discussed with patient. Patient agreed to admission to [facility] for further evaluation and treatment. Discussed with Dr.: Ken Mayorga Will see patient in: hospital (observation) Counseled pt/family regarding: lab results, diagnosis, rad results - Departure Departure Disposition: Observation, Extended Care Facility Clinical Impression: ACS (acute coronary syndrome), Chest pain, Elevated troponin, Generalized weakness Condition: Stable Critical Care Time: No Referrals: SONIA MARTIN MD [Primary Care Provider] -
[2019-10-20 13:30] LABS: Absolute Neutrophil Ct (ANC) 6.37 (1.4-6.9); BASOPHIL % 0.2 % (0.0-0.4); Basophil (Absolute #) 0.02 (0-0.4); Eosinophil % 4.1 % (0.00-5.0); Eosinophil (Absolute #) 0.39 (0-0.5); Hematocrit 36.6 % (35-47); Hemoglobin 12.1 gm/dl (12.0-16.0); Lymphocyte (Absolute #) 1.82 (1.0-4.6); Lymphocytes % 19.3 % (24.0-44.0); Mean Cell Volume 95.1 fl (78-100); Mean Corpuscular Hemoglobin 31.4 pg (26-32); Mean Corpuscular Hgb Concent. 33.1 g/dl (32-36); Monocyte (Absolute #) 0.82 (0.0-1.3); Monocytes % 8.7 % (0.0-12.0); Neutrophil % 67.7 % (36.0-66.0); Platelet Count 171 K/mm3 (150-450); Red Blood Count 3.85 M/mm3 (4.1-5.4); Red Cell Distribution Width 14.9 % (11.5-14.0); White Blood Count 9.4 K/mm3 (4.0-10.5)
--- NOTE | 2019-10-20 13:41 | XRAY ---
Indication: Pneumonia. Dehydration. Comparison: August 14, 2018. Portable chest remains underinflated and clear. Heart and mediastinal structures within normal limits again with aortic valve replacement. Bony thorax intact again with osteopenia and degenerative changes. Impression: Continued nonacute underinflated chest with chronic features.
[2019-10-20] MEDS ORDERED: Sodium Chloride 0.9% 1000 ML 1,000 ML ONE (13:53)
[2019-10-20 13:56] LABS: ALBUMIN 3.9 g/dL (3.5-5.0); ANION GAP 13.2 MEQ/L (5-15); BILIRUBIN,TOTAL 0.5 mg/dL (0.2-1.3); Calcium 9.6 mg/dL (8.4-10.2); Creatinine 1 1.49 mg/dL (0.52-1.04); Potassium 3.7 mmol/L (3.5-5.1)
[2019-10-20] MEDS ORDERED: BABY ASPIRIN 81 MG CHEW PO ONE (14:41)
[2019-10-20] MEDS ORDERED: BABY ASPIRIN 81 MG CHEW ONE (14:44)
[2019-10-20 14:45] LABS: Appearance CLEAR (CLEAR); Bacteria FEW /HPF (NEGATIVE); Bilirubin NEGATIVE (NEGATIVE); Blood SMALL Ery/ul (0-5); Glucose NEGATIVE (NEGATIVE); Ketones NEGATIVE (NEGATIVE); Leukocyte Esterase TRACE (NEGATIVE); Nitrite NEGATIVE (NEGATIVE); Protein,Urine Dip NEGATIVE (Negative); Specific Gravity 1.006 (1.005-1.025); Urobilinogen NEGATIVE mg/dL (0-1)
[2019-10-20] MEDS ORDERED: MAALOX ES 30 ML UNIT DOSE PO PRN (15:06)
[2019-10-20] MEDS ORDERED: MILK OF MAGNESIA 30 ML PO PRN (15:06)
[2019-10-20] MEDS ORDERED: Zofran 4 MG/2 ML VIAL IV PRN (15:06)
[2019-10-20] MEDS ORDERED: Senokot-S Tablet PO PRN (15:06)
[2019-10-20] MEDS ORDERED: Nitrostat 0.4 MG Tablet SL PRN (17:17)
[2019-10-20] MEDS ORDERED: NON-FORMULARY ITEM (Cholecalciferol (Vitamin D3) [Vitamin D3] 2,000 UNIT) PO SCH (17:30)
[2019-10-20] MEDS: BUMEX 1 MG PO SCH ×2 (18:02→18:05)
[2019-10-20] MEDS: HUMALOG SQ SCH (18:02)
[2019-10-20] MEDS ORDERED: NON-FORMULARY ITEM (Bumetanide [Bumex] 2 MG) PO SCH (22:00)
[2019-10-20] MEDS ORDERED: BABY ASPIRIN 81 MG CHEW PO SCH (22:00)
[2019-10-20] MEDS ORDERED: DESYREL 50 MG PO SCH (22:00)
[2019-10-20] MEDS ORDERED: CLARITIN 10 MG PO SCH (22:00)
[2019-10-20] MEDS ORDERED: ZYLOPRIM 100 MG PO SCH (22:00)
[2019-10-20] MEDS ORDERED: ECOTRIN 81 MG PO SCH (22:00)
[2019-10-20] MEDS ORDERED: NON-FORMULARY ITEM (Gabapentin [Neurontin] 600 MG) PO SCH (22:00)
[2019-10-20] MEDS ORDERED: Toprol Xl 50 MG PO SCH (22:00)
[2019-10-20] MEDS ORDERED: ZYLOPRIM 300 MG PO SCH (22:00)
[2019-10-20] MEDS: TYLENOL 325 MG PO PRN (22:19)
[2019-10-20] MEDS: ULTRAM 50 MG PO PRN (22:20)
[2019-10-20] MEDS: zyPREXA 5MG TABLET PO SCH (22:21)
[2019-10-20] MEDS: NEURONTIN 300 MG PO SCH (22:22)
[2019-10-21 07:23] VITALS: BP 144/76; PULSE 75; O2SAT 100
[2019-10-21] MEDS ORDERED: NON-FORMULARY ITEM (Insulin Lispro 18 UNIT) SQ SCH (07:30)
[2019-10-21] MEDS: HUMALOG SQ SCH (08:01)
[2019-10-21] MEDS: BUMEX 1 MG PO SCH (09:21)
[2019-10-21] MEDS: NEURONTIN 300 MG PO SCH (09:23)
[2019-10-21] MEDS: zyPREXA 5MG TABLET PO SCH (09:24)
[2019-10-21] MEDS: TYLENOL 325 MG PO PRN (09:25)
[2019-10-21] MEDS: ULTRAM 50 MG PO PRN (09:25)
--- NOTE | 2019-10-21 09:50 | PCM.SSS ---
History of Present Illness - Chief Complaint Chief Complaint: ACS, ELEVATED TROP 1, CHEST PAIN HX CARDIAC STENT History of Present Illness: is a 69 year old female who presented to ER because of feeling weak after the lab was unsuccessful in drawing her blood for Hydro Technician. She was admitted for observation because of fatigue and "chest pressure". Her PCP is Dr Martin who advised letting patient go home R[place] and have her Tele Cardiology visit that was already set up for today with Dr. Garcia at [facility]. 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 - Review of Systems Constitutional: Weakness Eyes: No Symptoms Ears, Nose, & Throat: No Symptoms Respiratory: Other (no cough of dyspnea) Cardiac: Other (chest pressure in ER but not on the floor.) Abdominal/Gastrointestinal: No Symptoms Genitourinary Symptoms: Other (no dysuria) Musculoskeletal: Other (chronic back pain) Skin: No Rash Neurological: No Symptoms Psychological: Depression (controlled on meds,stable) Medications & Allergies Home Medications: Home Medication List Acetaminophen [Tylenol] 650 mg PO Q6HPRN PRN 08/20/17 [History Confirmed ] Bumetanide [Bumex] 2 mg PO BID 08/20/17 [History Confirmed 10/20/19] Duloxetine HCl [Cymbalta] 60 mg PO DAILY 08/20/17 [History Confirmed 10/20/19] Gabapentin [Neurontin] 600 mg PO TID 08/20/17 [History Confirmed 10/20/19] Insulin Glargine,Hum.rec.anlog [Torafael Solostnatalya] 0 unit SQ DAILY 08/20/17 [ History Confirmed 10/20/19] Isosorbide Mononitrate 30 mg [Imdur 30 MG] 30 mg PO DAILY 08/20/17 [ History Confirmed 10/20/19] Loratadine 10 mg [Claritin 10 mg] 10 mg PO HS 08/20/17 [History Confirmed 10/20/19] Multivitamin [Multi-Vitamin Daily] 1 each PO DAILY 08/20/17 [History Confirmed 10/20/19] Nitroglycerin 0.4 mg Tablet [Nitrostat 0.4 MG Tablet] 0.4 mg SL Q5MIN PRN MR X 3 PRN 08/20/17 [History Confirmed 10/20/19] Potassium Chloride 10 Meq Tab* [Klor Con 10 MEQ] 50 meq PO DAILY 08/20/17 [ History Confirmed 10/20/19] Trazodone HCl 50 mg [Desyrel 50 mg] 100 mg PO HS 08/20/17 [History Confirmed 10/20/19] Metoprolol Succinate 50 mg [Toprol Xl 50 MG] 50 mg PO HS 12/16/17 [ History Confirmed 10/20/19] Allopurinol [Zyloprim] 300 mg PO HS 03/17/19 [History Confirmed 10/20/19] Clopidogrel Bisulfate 75 mg [PLAVIX 75 MG Tablet] 75 mg PO DAILY 03/17/19 [History Confirmed 10/20/19] Insulin Lispro [Humalog] 0 unit SQ AC 03/17/19 [History Confirmed 10/20/19] Glimepiride 4 mg [Amaryl 4 mg] 4 mg PO DAILY 06/12/19 [History Confirmed 10/20/19] Amlodipine Besylate 10 mg PO DAILY 10/20/19 [History Confirmed 10/20/19] Aspirin 81 gm Chew [Baby Aspirin 81 mg Chew] 81 mg PO HS 10/20/19 [ History Confirmed 10/20/19] Cholecalciferol (Vitamin D3) [Vitamin D3] 2,000 unit PO UD 10/20/19 [History Confirmed 10/20/19] Losartan Potassium 25 mg PO DAILY 10/20/19 [History Confirmed 10/20/19] Olanzapine 2.5 mg PO TID 10/20/19 [History Confirmed 10/20/19] Tramadol HCl 50 mg [Ultram 50 mg] 50 mg PO Q6HPRN PRN 10/20/19 [History Confirmed 10/20/19] Allergies/Adverse Reactions: Allergies Allergy/AdvReac Type Severity Reaction Status Date / Time hydromorphone [From Dilaudid] Allergy Severe Difficulty Verified 10/20/19 13:04 Breathing meclofenamic acid Allergy Severe Skin Verified 10/20/19 13:04 [From Meclomen] Irritation morphine Allergy Severe Difficulty Verified 10/20/19 13:04 Breathing Sulfa (Sulfonamide Allergy Severe Verified 10/20/19 13:04 Antibiotics) ciprofloxacin [From Cipro] Allergy Intermediate Itching Verified 10/20/19 13:04 diphenhydramine Allergy Intermediate Swelling Verified 10/20/19 13:04 [From Benadryl] of Tongue and Lips fexofenadine [From Annmarie] Allergy Mild Difficulty Verified 10/20/19 13:04 Swallowing acetaminophen [From Isleton] AdvReac Intermediate Verified 10/20/19 13:04 amlodipine AdvReac Intermediate Swelling Verified 10/20/19 13:04 of Feet betamethasone AdvReac Intermediate Verified 10/20/19 13:04 [From Celestone] clonidine [From Catapres] AdvReac Intermediate Difficulty Verified 10/20/19 13: 04 Breathing clotrimazole [From Lotrimin] AdvReac Intermediate Skin Verified 10/20/19 13:04 Irritation colchicine AdvReac Intermediate Swelling Verified 10/20/19 13:04 of Joints colesevelam [From WelChol] AdvReac Intermediate Verified 10/20/19 13:04 enalaprilat [From Vasotec] AdvReac Intermediate Verified 10/20/19 13:04 escitalopram [From Lexapro] AdvReac Intermediate Verified 10/20/19 13:04 fluvastatin [From Lescol] AdvReac Intermediate Verified 10/20/19 13:04 hydralazine AdvReac Intermediate Verified 10/20/19 13:04 hydrocodone [From Isleton] AdvReac Intermediate Verified 10/20/19 13:04 lidocaine [From Lidoderm] AdvReac Intermediate Nausea and Verified 10/20/19 13: 04 Vomiting metformin AdvReac Intermediate Diarrhea Verified 10/20/19 13:04 metronidazole AdvReac Intermediate Diarrhea Verified 10/20/19 13:04 oxycodone [From OxyContin] AdvReac Intermediate Difficulty Verified 10/20/19 13: 04 Breathing pilocarpine AdvReac Intermediate Vomiting Verified 10/20/19 13:04 [From Salagen (pilocarpine)] rosuvastatin [From Crestor] AdvReac Intermediate Verified 10/20/19 13:04 terbinafine [From Lamisil] AdvReac Intermediate Skin Verified 10/20/19 13:04 Irritation bupropion [From Wellbutrin] AdvReac Mild Verified 10/20/19 13:04 cholecalciferol (vitamin D3) AdvReac Mild Verified 10/20/19 13:04 [From Vitamin D3] ezetimibe [From Vytorin] AdvReac Mild Verified 10/20/19 13:04 lamotrigine [From Lamictal] AdvReac Mild Stomach Verified 10/20/19 13:04 Pain lithium AdvReac Mild Diarrhea Verified 10/20/19 13:04 simvastatin [From Vytorin] AdvReac Mild Verified 10/20/19 13:04 ziprasidone [From Geodon] AdvReac Mild Swelling Verified 10/20/19 13:04 of Feet buspirone AdvReac Verified 10/20/19 13:04 - Past Medical History Past Medical History: Yes Neurological History: Peripheral Neuropathy ENT History: Cataracts Cardiac History: Hypertension, Other Respiratory History: No Pertinent History Endocrine Medical History: Adrenal Insufficiency, Diabetes Type II Musculoskelatal History: Osteoarthritis GI Medical History: Irritable Bowel History: No Pertinent History, Renal Disease, Other Pyscho-Social History: Anxiety, Depression Reproductive Disorders: No Pertinent History, Breast Cancer Comment: back surgery, may have to start dialysis, trans aortic valve replacement, CARDIAC STENTS X3 - Female History Hx Last Menstrual Period: post Are you now?: No - Past Surgical History Past Surgical History: Yes Neuro Surgical History: No Pertinent History Cardiac History: Other Respiratory Surgery: No Pertinent History GI Surgical History: Appendectomy, Bowel Surgery, Cholecystectomy Genitourinary Surgical Hx: No Pertinent History Musculskeletal Surgical Hx: No Pertinent History Female Surgical History: No Pertinent History, Hysterectomy, Section, Tubal Ligation, Lumpectomy Other Surgical History: intestinal bypass and then reverse,sinus surgery times 2 roof/mouth then sinus surgery nose,left foot planters wart,right breast tumor, rt ankle/right leg sx after fx,left breast mastectomy with sentinel removed,6 marek steroid inj,t.a.v.r.-transcatheter aortic value replacement,lumbar laminectomy, steroid injections in back multiple times a year - Social History Smoking Status: Never smoker Exposure to second hand smoke: No Alcohol: None Drug Use: none - Physical Exam Vital Signs: Vital Signs - 24 hr Temp Pulse Resp BP Pulse Ox 10/21/19 07:23 97.6 F 75 18 144/76 100 10/21/19 05:00 97.6 F 86 18 144/99 97 10/20/19 23:56 98.2 F 88 20 133/62 95 10/20/19 20:00 97.5 F 94 H 18 170/78 98 10/20/19 15:10 98.6 F 85 20 185/84 97 10/20/19 14:57 97 10/20/19 14:06 80 18 166/71 96 10/20/19 13:15 80 18 177/90 97 10/20/19 13:13 98 10/20/19 12:48 97.7 F 89 20 208/87 98 General Appearance: no apparent distress Neurologic Exam: alert, oriented x 3, cooperative, spiral runner II-XII nml as tested, normal mood/affect, nml cerebellar function, nml station & gait Eye Exam: PERRL/EOMI Ears, Nose, Throat Exam: normal ENT inspection, other (no nasal discharge) Neck Exam: other (right neck bruise from lab draw) Respiratory Exam: normal breath sounds, lungs clear Cardiovascular Exam: regular rate/rhythm (soft murmur), edema (trace ankle edema ) Gastrointestinal/Abdomen Exam: soft, normal bowel sounds (nontender) Pelvic Exam: not done Rectal Exam: not done Back Exam: other (no CVA tenderness) Extremity Exam: other (no acute joint inflamation) Results - Labs Lab/Micro Results: Accuchecks Date 10/20/19 Time 21:00 Accucheck Value: 155 Accucheck Value: 162 Accucheck Value: 117 Lab Results-Last 24 Hours 10/20/19 10/20/19 10/20/19 Range/Units 13:15 13:15 13:15 WBC 9.4 (4.0-10.5) K/mm3 RBC 3.85 L (4.1-5.4) M/mm3 Hgb 12.1 (12.0-16.0) gm/dl Hct 36.6 (35-47) % MCV 95.1 (78-100) fl MCH 31.4 (26-32) pg MCHC 33.1 (32-36) g/dl RDW 14.9 H (11.5-14.0) % Plt Count 171 (150-450) K/mm3 MPV 10.0 (7.5-11.0) fl Gran % 67.7 H (36.0-66.0) % Eos # (Auto) 0.39 (0-0.5) Absolute Lymphs (auto) 1.82 (1.0-4.6) Absolute Monos (auto) 0.82 (0.0-1.3) Lymphocytes % 19.3 L (24.0-44.0) % Monocytes % 8.7 (0.0-12.0) % Eosinophils % 4.1 (0.00-5.0) % Basophils % 0.2 (0.0-0.4) % Absolute Granulocytes 6.37 (1.4-6.9) Basophils # 0.02 (0-0.4) Sodium 142 (137-145) mmol/L Potassium 3.7 (3.5-5.1) mmol/L Chloride 101 (98-107) mmol/L Carbon Dioxide 31 H (22-30) mmol/L Anion Gap 13.2 (5-15) MEQ/L BUN 22 H (7-17) mg/dL Creatinine 1.49 H (0.52-1.04) mg/dL Estimated GFR 36.8 ML/MIN Glucose 181 H (74-106) mg/dL Calcium 9.6 (8.4-10.2) mg/dL Total Bilirubin 0.50 (0.2-1.3) mg/dL AST 23 (14-36) U/L ALT 18 (0-35) U/L Alkaline Phosphatase 111 (38-126) U/L Troponin I 0.044 H* (0.000-0.034) ng/mL Serum Total Protein 7.0 (6.3-8.2) g/dL Albumin 3.9 (3.5-5.0) g/dL Triglycerides (30-150) mg/dL Cholesterol (50-200) mg/dL LDL Cholesterol (30-100) mg/dL HDL Cholesterol (40-60) mg/dL Heart Disease Risk Ratio Urine Color (YELLOW) Urine Appearance (CLEAR) Urine pH (5-6) Ur Specific [place] (1.005-1.025) Urine Protein (Negative) Urine Ketones (NEGATIVE) Urine Blood (0-5) Tulio/ul Urine Nitrite (NEGATIVE) Urine Bilirubin (NEGATIVE) Urine Urobilinogen (0-1) mg/dL Ur Leukocyte Esterase (NEGATIVE) Urine WBC (Auto) (0-5) /HPF Urine RBC (Auto) (0-2) /HPF U Epithel Cells (Auto) (FEW) /HPF Urine Bacteria (Auto) (NEGATIVE) /HPF Urine Culture Reflexed (NO) Urine Glucose (NEGATIVE) mg/dL 10/20/19 10/20/19 10/20/19 Range/Units 14:16 16:36 19:38 WBC (4.0-10.5) K/mm3 RBC (4.1-5.4) M/mm3 Hgb (12.0-16.0) gm/dl Hct (35-47) % MCV (78-100) fl MCH (26-32) pg MCHC (32-36) g/dl RDW (11.5-14.0) % Plt Count (150-450) K/mm3 MPV (7.5-11.0) fl Gran % (36.0-66.0) % Eos # (Auto) (0-0.5) Absolute Lymphs (auto) (1.0-4.6) Absolute Monos (auto) (0.0-1.3) Lymphocytes % (24.0-44.0) % Monocytes % (0.0-12.0) % Eosinophils % (0.00-5.0) % Basophils % (0.0-0.4) % Absolute Granulocytes (1.4-6.9) Basophils # (0-0.4) Sodium (137-145) mmol/L Potassium (3.5-5.1) mmol/L Chloride (98-107) mmol/L Carbon Dioxide (22-30) mmol/L Anion Gap (5-15) MEQ/L BUN (7-17) mg/dL Creatinine (0.52-1.04) mg/dL Estimated GFR ML/MIN Glucose (74-106) mg/dL Calcium (8.4-10.2) mg/dL Total Bilirubin (0.2-1.3) mg/dL AST (14-36) U/L ALT (0-35) U/L Alkaline Phosphatase (38-126) U/L Troponin I 0.038 H* 0.038 H* (0.000-0.034) ng/mL Serum Total Protein (6.3-8.2) g/dL Albumin (3.5-5.0) g/dL Triglycerides (30-150) mg/dL Cholesterol (50-200) mg/dL LDL Cholesterol (30-100) mg/dL HDL Cholesterol (40-60) mg/dL Heart Disease Risk Ratio Urine Color STRAW (YELLOW) Urine Appearance CLEAR (CLEAR) Urine pH 5.0 (5-6) Ur Specific [place] 1.006 (1.005-1.025) Urine Protein NEGATIVE (Negative) Urine Ketones NEGATIVE (NEGATIVE) Urine Blood SMALL (0-5) Tulio/ul Urine Nitrite NEGATIVE (NEGATIVE) Urine Bilirubin NEGATIVE (NEGATIVE) Urine Urobilinogen NEGATIVE (0-1) mg/dL Ur Leukocyte Esterase TRACE (NEGATIVE) Urine WBC (Auto) 11-15 (0-5) /HPF Urine RBC (Auto) 3-5 (0-2) /HPF U Epithel Cells (Auto) NONE (FEW) /HPF Urine Bacteria (Auto) FEW (NEGATIVE) /HPF Urine Culture Reflexed YES (NO) Urine Glucose NEGATIVE (NEGATIVE) mg/dL 10/20/19 10/21/19 10/21/19 Range/Units 22:15 02:15 06:35 WBC (4.0-10.5) K/mm3 RBC (4.1-5.4) M/mm3 Hgb (12.0-16.0) gm/dl Hct (35-47) % MCV (78-100) fl MCH (26-32) pg MCHC (32-36) g/dl RDW (11.5-14.0) % Plt Count (150-450) K/mm3 MPV (7.5-11.0) fl Gran % (36.0-66.0) % Eos # (Auto) (0-0.5) Absolute Lymphs (auto) (1.0-4.6) Absolute Monos (auto) (0.0-1.3) Lymphocytes % (24.0-44.0) % Monocytes % (0.0-12.0) % Eosinophils % (0.00-5.0) % Basophils % (0.0-0.4) % Absolute Granulocytes (1.4-6.9) Basophils # (0-0.4) Sodium (137-145) mmol/L Potassium (3.5-5.1) mmol/L Chloride (98-107) mmol/L Carbon Dioxide (22-30) mmol/L Anion Gap (5-15) MEQ/L BUN (7-17) mg/dL Creatinine (0.52-1.04) mg/dL Estimated GFR ML/MIN Glucose (74-106) mg/dL Calcium (8.4-10.2) mg/dL Total Bilirubin (0.2-1.3) mg/dL AST (14-36) U/L ALT (0-35) U/L Alkaline Phosphatase (38-126) U/L Troponin I 0.036 H* 0.044 H* (0.000-0.034) ng/mL Serum Total Protein (6.3-8.2) g/dL Albumin (3.5-5.0) g/dL Triglycerides 336 H (30-150) mg/dL Cholesterol 229 H (50-200) mg/dL LDL Cholesterol 124 H (30-100) mg/dL HDL Cholesterol 33 L (40-60) mg/dL Heart Disease Risk Ratio 7.0 Urine Color (YELLOW) Urine Appearance (CLEAR) Urine pH (5-6) Ur Specific [place] (1.005-1.025) Urine Protein (Negative) Urine Ketones (NEGATIVE) Urine Blood (0-5) Tulio/ul Urine Nitrite (NEGATIVE) Urine Bilirubin (NEGATIVE) Urine Urobilinogen (0-1) mg/dL Ur Leukocyte Esterase (NEGATIVE) Urine WBC (Auto) (0-5) /HPF Urine RBC (Auto) (0-2) /HPF U Epithel Cells (Auto) (FEW) /HPF Urine Bacteria (Auto) (NEGATIVE) /HPF Urine Culture Reflexed (NO) Urine Glucose (NEGATIVE) mg/dL Microbiology 10/20/19 14:16 Urine Culture - Preliminary Urine, Void GRAM NEGATIVE ID AND SENSITIVITY PENDING Accuchecks Date 10/20/19 Time 21:00 Accucheck Value: 155 Accucheck Value: 162 Accucheck Value: 117 - Radiology Impressions Radiology Exams & Impressions: Radiology Procedures Category Date Time Status CHEST 1 VIEW (PORTABLE) Stat Exams 10/20/19 13:09 Completed - Other Procedures and Tests Respiratory Therapy 10/22/19 05:00 EKG ONCE 10/23/19 05:00 EKG ONCE Assessment/Plan (1) ACS (acute coronary syndrome) Current Visit: Yes Status: Resolved Assessment & Plan: resolved Code(s): I24.9 - ACUTE ISCHEMIC HEART DISEASE, UNSPECIFIED (2) Elevated troponin Current Visit: Yes Status: Chronic Assessment & Plan: no chest pain overnight ,will follow with Gore Seamer tomorrow or come back to ER if symptoms develop Code(s): R79.89 - OTHER SPECIFIED ABNORMAL FINDINGS OF BLOOD CHEMISTRY (3) Chronic kidney disease (CKD) Current Visit: No Status: Chronic Qualifiers: Chronic kidney disease stage: stage 4 (severe) Qualified Code(s): N18.4 - Chronic kidney disease, stage 4 (severe) Assessment & Plan: follows with Hydro Technician Code(s): N18.9 - CHRONIC KIDNEY DISEASE, UNSPECIFIED (4) Diabetes mellitus, insulin dependent (IDDM), controlled Current Visit: Yes Status: Chronic Assessment & Plan: follows with Dr Villalba Code(s): DFJ9622 - (5) Chronic back pain Current Visit: No Status: Chronic Code(s): M54.9 - DORSALGIA, UNSPECIFIED; G89.29 - OTHER CHRONIC PAIN Hospital Summary - Hospital Course Hospital Course: Please see discussion in HPI . Patient is asymptomatic ,sitting up in bed, lenghty conversation without dyspnea. Denies any chest pressure or discomfort since ER. States she is no longer feeling weak or fatigued.She ate well last evening and this morning and feels she is at baseline. She will be discharged home today.Her is with her 27/01 and will be picking her up. She is aware of her appt with her Gore Seamer at 10:20 am tomorrow . She will come to ER if symptoms reoccur. - Vitals & Intake/Output Vital Signs: Vital Signs Temperature 97.6 F 10/21/19 07:23 Pulse Rate 75 10/21/19 07:23 Respiratory Rate 18 10/21/19 07:23 Blood Pressure 144/76 10/21/19 07:23 O2 Sat by Pulse Oximetry 100 10/21/19 07:23 Intake & Output: Intake & Output 10/18/19 10/19/19 10/20/19 10/21/19 11:59 11:59 11:59 11:59 Intake Total 1440 Balance 1440 Weight 110.8 kg - Lab Result Diagrams: 10/20/19 13:15 10/20/19 13:15 Lab Results-Last 24 Hrs: Accuchecks Date 10/20/19 Time 21:00 Accucheck Value: 155 Accucheck Value: 162 Accucheck Value: 117 Lab Results-Last 24 Hours 10/20/19 10/20/19 10/20/19 Range/Units 13:15 13:15 13:15 WBC 9.4 (4.0-10.5) K/mm3 RBC 3.85 L (4.1-5.4) M/mm3 Hgb 12.1 (12.0-16.0) gm/dl Hct 36.6 (35-47) % MCV 95.1 (78-100) fl MCH 31.4 (26-32) pg MCHC 33.1 (32-36) g/dl RDW 14.9 H (11.5-14.0) % Plt Count 171 (150-450) K/mm3 MPV 10.0 (7.5-11.0) fl Gran % 67.7 H (36.0-66.0) % Eos # (Auto) 0.39 (0-0.5) Absolute Lymphs (auto) 1.82 (1.0-4.6) Absolute Monos (auto) 0.82 (0.0-1.3) Lymphocytes % 19.3 L (24.0-44.0) % Monocytes % 8.7 (0.0-12.0) % Eosinophils % 4.1 (0.00-5.0) % Basophils % 0.2 (0.0-0.4) % Absolute Granulocytes 6.37 (1.4-6.9) Basophils # 0.02 (0-0.4) Sodium 142 (137-145) mmol/L Potassium 3.7 (3.5-5.1) mmol/L Chloride 101 (98-107) mmol/L Carbon Dioxide 31 H (22-30) mmol/L Anion Gap 13.2 (5-15) MEQ/L BUN 22 H (7-17) mg/dL Creatinine 1.49 H (0.52-1.04) mg/dL Estimated GFR 36.8 ML/MIN Glucose 181 H (74-106) mg/dL Calcium 9.6 (8.4-10.2) mg/dL Total Bilirubin 0.50 (0.2-1.3) mg/dL AST 23 (14-36) U/L ALT 18 (0-35) U/L Alkaline Phosphatase 111 (38-126) U/L Troponin I 0.044 H* (0.000-0.034) ng/mL Serum Total Protein 7.0 (6.3-8.2) g/dL Albumin 3.9 (3.5-5.0) g/dL Triglycerides (30-150) mg/dL Cholesterol (50-200) mg/dL LDL Cholesterol (30-100) mg/dL HDL Cholesterol (40-60) mg/dL Heart Disease Risk Ratio Urine Color (YELLOW) Urine Appearance (CLEAR) Urine pH (5-6) Ur Specific [place] (1.005-1.025) Urine Protein (Negative) Urine Ketones (NEGATIVE) Urine Blood (0-5) Tulio/ul Urine Nitrite (NEGATIVE) Urine Bilirubin (NEGATIVE) Urine Urobilinogen (0-1) mg/dL Ur Leukocyte Esterase (NEGATIVE) Urine WBC (Auto) (0-5) /HPF Urine RBC (Auto) (0-2) /HPF U Epithel Cells (Auto) (FEW) /HPF Urine Bacteria (Auto) (NEGATIVE) /HPF Urine Culture Reflexed (NO) Urine Glucose (NEGATIVE) mg/dL 10/20/19 10/20/19 10/20/19 Range/Units 14:16 16:36 19:38 WBC (4.0-10.5) K/mm3 RBC (4.1-5.4) M/mm3 Hgb (12.0-16.0) gm/dl Hct (35-47) % MCV (78-100) fl MCH (26-32) pg MCHC (32-36) g/dl RDW (11.5-14.0) % Plt Count (150-450) K/mm3 MPV (7.5-11.0) fl Gran % (36.0-66.0) % Eos # (Auto) (0-0.5) Absolute Lymphs (auto) (1.0-4.6) Absolute Monos (auto) (0.0-1.3) Lymphocytes % (24.0-44.0) % Monocytes % (0.0-12.0) % Eosinophils % (0.00-5.0) % Basophils % (0.0-0.4) % Absolute Granulocytes (1.4-6.9) Basophils # (0-0.4) Sodium (137-145) mmol/L Potassium (3.5-5.1) mmol/L Chloride (98-107) mmol/L Carbon Dioxide (22-30) mmol/L Anion Gap (5-15) MEQ/L BUN (7-17) mg/dL Creatinine (0.52-1.04) mg/dL Estimated GFR ML/MIN Glucose (74-106) mg/dL Calcium (8.4-10.2) mg/dL Total Bilirubin (0.2-1.3) mg/dL AST (14-36) U/L ALT (0-35) U/L Alkaline Phosphatase (38-126) U/L Troponin I 0.038 H* 0.038 H* (0.000-0.034) ng/mL Serum Total Protein (6.3-8.2) g/dL Albumin (3.5-5.0) g/dL Triglycerides (30-150) mg/dL Cholesterol (50-200) mg/dL LDL Cholesterol (30-100) mg/dL HDL Cholesterol (40-60) mg/dL Heart Disease Risk Ratio Urine Color STRAW (YELLOW) Urine Appearance CLEAR (CLEAR) Urine pH 5.0 (5-6) Ur Specific [place] 1.006 (1.005-1.025) Urine Protein NEGATIVE (Negative) Urine Ketones NEGATIVE (NEGATIVE) Urine Blood SMALL (0-5) Tulio/ul Urine Nitrite NEGATIVE (NEGATIVE) Urine Bilirubin NEGATIVE (NEGATIVE) Urine Urobilinogen NEGATIVE (0-1) mg/dL Ur Leukocyte Esterase TRACE (NEGATIVE) Urine WBC (Auto) 11-15 (0-5) /HPF Urine RBC (Auto) 3-5 (0-2) /HPF U Epithel Cells (Auto) NONE (FEW) /HPF Urine Bacteria (Auto) FEW (NEGATIVE) /HPF Urine Culture Reflexed YES (NO) Urine Glucose NEGATIVE (NEGATIVE) mg/dL 10/20/19 10/21/19 10/21/19 Range/Units 22:15 02:15 06:35 WBC (4.0-10.5) K/mm3 RBC (4.1-5.4) M/mm3 Hgb (12.0-16.0) gm/dl Hct (35-47) % MCV (78-100) fl MCH (26-32) pg MCHC (32-36) g/dl RDW (11.5-14.0) % Plt Count (150-450) K/mm3 MPV (7.5-11.0) fl Gran % (36.0-66.0) % Eos # (Auto) (0-0.5) Absolute Lymphs (auto) (1.0-4.6) Absolute Monos (auto) (0.0-1.3) Lymphocytes % (24.0-44.0) % Monocytes % (0.0-12.0) % Eosinophils % (0.00-5.0) % Basophils % (0.0-0.4) % Absolute Granulocytes (1.4-6.9) Basophils # (0-0.4) Sodium (137-145) mmol/L Potassium (3.5-5.1) mmol/L Chloride (98-107) mmol/L Carbon Dioxide (22-30) mmol/L Anion Gap (5-15) MEQ/L BUN (7-17) mg/dL Creatinine (0.52-1.04) mg/dL Estimated GFR ML/MIN Glucose (74-106) mg/dL Calcium (8.4-10.2) mg/dL Total Bilirubin (0.2-1.3) mg/dL AST (14-36) U/L ALT (0-35) U/L Alkaline Phosphatase (38-126) U/L Troponin I 0.036 H* 0.044 H* (0.000-0.034) ng/mL Serum Total Protein (6.3-8.2) g/dL Albumin (3.5-5.0) g/dL Triglycerides 336 H (30-150) mg/dL Cholesterol 229 H (50-200) mg/dL LDL Cholesterol 124 H (30-100) mg/dL HDL Cholesterol 33 L (40-60) mg/dL Heart Disease Risk Ratio 7.0 Urine Color (YELLOW) Urine Appearance (CLEAR) Urine pH (5-6) Ur Specific [place] (1.005-1.025) Urine Protein (Negative) Urine Ketones (NEGATIVE) Urine Blood (0-5) Tulio/ul Urine Nitrite (NEGATIVE) Urine Bilirubin (NEGATIVE) Urine Urobilinogen (0-1) mg/dL Ur Leukocyte Esterase (NEGATIVE) Urine WBC (Auto) (0-5) /HPF Urine RBC (Auto) (0-2) /HPF U Epithel Cells (Auto) (FEW) /HPF Urine Bacteria (Auto) (NEGATIVE) /HPF Urine Culture Reflexed (NO) Urine Glucose (NEGATIVE) mg/dL Micro Results-Entire Visit: Microbiology 10/20/19 14:16 Urine Culture - Preliminary Urine, Void GRAM NEGATIVE ID AND SENSITIVITY PENDING Accuchecks Date 10/20/19 Time 21:00 Accucheck Value: 155 Accucheck Value: 162 Accucheck Value: 117 - Radiology Exams Ordered Rad Exams-Entire Visit: Radiology Procedures Category Date Time Status CHEST 1 VIEW (PORTABLE) Stat Exams 10/20/19 13:09 Completed - Procedures and Test Procedures and Tests throughout Hospitalization: Therapy Orders & Screens 10/20/19 20:45 EKG ONCE Comment: Diagnosis: ACS, ELEVATED TROP 1, CHEST PAIN HX CARDIAC STENT 10/21/19 05:00 EKG ONCE Comment: Diagnosis: ACS, ELEVATED TROP 1, CHEST PAIN HX CARDIAC STENT 10/22/19 05:00 EKG ONCE Comment: Diagnosis: ACS, ELEVATED TROP 1, CHEST PAIN HX CARDIAC STENT 10/23/19 05:00 EKG ONCE Comment: Diagnosis: ACS, ELEVATED TROP 1, CHEST PAIN HX CARDIAC STENT - Discharge Disposition: Home, Self-Care Condition: Stable Prescriptions: Continue Acetaminophen [Tylenol] 650 mg PO Q6HPRN PRN PRN Reason: Pain Loratadine 10 mg [Claritin 10 mg] 10 mg PO HS Multivitamin [Multi-Vitamin Daily] 1 each PO DAILY Trazodone HCl 50 mg [Desyrel 50 mg] 100 mg PO HS Duloxetine HCl [Cymbalta] 60 mg PO DAILY Gabapentin [Neurontin] 600 mg PO TID Potassium Chloride 10 Meq Tab* [Klor Con 10 MEQ] 50 meq PO DAILY Isosorbide Mononitrate 30 mg [Imdur 30 MG] 30 mg PO DAILY Bumetanide [Bumex] 2 mg PO BID Insulin Glargine,Hum.rec.anlog [Torafael Solcelina] 0 unit SQ DAILY Nitroglycerin 0.4 mg Tablet [Nitrostat 0.4 MG Tablet] 0.4 mg SL Q5MIN PRN MR X 3 PRN PRN Reason: Pain Metoprolol Succinate 50 mg [Toprol Xl 50 MG] 50 mg PO HS Clopidogrel Bisulfate 75 mg [PLAVIX 75 MG Tablet] 75 mg PO DAILY Allopurinol [Zyloprim] 300 mg PO HS Insulin Lispro [Humalog] 0 unit SQ AC Glimepiride 4 mg [Amaryl 4 mg] 4 mg PO DAILY Aspirin 81 gm Chew [Baby Aspirin 81 mg Chew] 81 mg PO HS Losartan Potassium 25 mg PO DAILY Tramadol HCl 50 mg [Ultram 50 mg] 50 mg PO Q6HPRN PRN PRN Reason: Pain And/Or Fever Olanzapine 2.5 mg PO TID Amlodipine Besylate 10 mg PO DAILY Cholecalciferol (Vitamin D3) [Vitamin D3] 2,000 unit PO UD Instructions: Chest Pain Additional Instructions: APPOINTMENT WITH DR MARTIN AT THE [facility] SCHEDULED TELEPHONE APPOINTMENT WITH RE EXAMINER DR. GARCIA FOR 10/22/2019. Follow up with: SONIA MARTIN MD [Primary Care Provider] - 10/28/19 11:15 am Forms: Discharge Instructions
[2019-10-21] MEDS ORDERED: AMARYL 4 MG PO SCH (10:00)
[2019-10-21] MEDS ORDERED: NON-FORMULARY ITEM (Multivitamin [Multi-Vitamin Daily] 1 EACH) PO SCH (10:00)
[2019-10-21] MEDS ORDERED: Imdur 30 MG PO SCH (10:00)
[2019-10-21] MEDS ORDERED: NORVASC 5 MG PO SCH (10:00)
[2019-10-21] MEDS ORDERED: Cymbalta 30 MG Capsule PO SCH (10:00)
[2019-10-21] MEDS ORDERED: Lantus Insulin SQ SCH (10:00)
[2019-10-21] MEDS ORDERED: THERAGRAN MULTIVITAMIN PO SCH (10:00)
[2019-10-21] MEDS ORDERED: PLAVIX 75 MG Tablet PO SCH (10:00)
[2019-10-21] MEDS ORDERED: Cozaar 50 MG PO SCH (10:00)
[2019-10-21] MEDS ORDERED: Klor Con 10 MEQ PO SCH (10:00)
[2019-10-21] MEDS ORDERED: INSULIN GLARGINE HUM REC ANLOG 24 UNIT SQ SCH (10:00)
[2019-10-21] MEDS ORDERED: NON-FORMULARY ITEM (Duloxetine Hcl [Cymbalta] 60 MG) PO SCH (10:00)
[2019-10-22] MEDS ORDERED: VITAMIN D PO SCH (10:00)
== END 2019-10-21 11:51 | disposition home or self-care (01) ==
LOC: ED 12:25 → MED SURG 15:01
PROVIDERS: ADMIT Family Medicine; ATTEND Family Medicine
DX: I24.9 Acute ischemic heart disease, unspecified (principal); R79.89 Other specified abnormal findings of blood chemistry; E11.22 Type 2 diabetes mellitus with diabetic chronic kidney disease; I13.10 Hypertensive heart and chronic kidney disease without heart failure, with stage 1 through stage 4 chronic kidney disease, or unspecified chronic kidney disease; N18.4 Chronic kidney disease, stage 4 (severe); M54.9 Dorsalgia, unspecified; R07.9 Chest pain, unspecified; G89.29 Other chronic pain; Z79.01 Long term (current) use of anticoagulants; Z79.899 Other long term (current) drug therapy
CPT/HCPCS: 36415; 71045; 80053; 80061; 81001; 82962; 83036; 83721; 84484; 85025; 87077; 87086; 87186; 93005; 93041; 93268; 94760; 96360; 99285; G0378; J1817; A9270-GY

== ENCOUNTER 2020-01-05 08:13 | Day surgery (SDC) | payer MEDICARE ==
[~2020-01-05 08:13] MED LIST changes: +DIPRIVAN 200 MG/20 ML IV ONE; -Depo-Medrol 40 MG/ML IM ONE; +Ketamine HCl 50 MG/ML ONE; -Marcaine 0.5% SDV 10 ML IJ ONE; -Xylocaine 1% Vial 30 ML PF IJ ONE
[2020-01-05] MEDS ORDERED: Depo-Medrol 40 MG/ML IM ONE (08:14)
[2020-01-05] MEDS ORDERED: Sodium Chloride 0.9(Preservative Free) 10 ML IJ ONE (08:14)
--- NOTE | 2020-01-05 10:23 | XRAY ---
49 seconds fluoroscopy time in surgery for left L4-S1 transforaminal LINA.
--- NOTE | 2020-01-05 10:24 | XRAY ---
Indication: Left L4-S1 transforaminal LINA. Intraoperative fluoroscopy was provided for 49 seconds. 3 digital spot images submitted for interpretation demonstrates posterior needle tips projecting over the expected course of the left L4 and L5 nerve roots. Small amount of contrast injected for needle tip placement. Correlate with intraoperative findings/report.
[2020-01-05] MEDS ORDERED: Lactated Ringers 1,000 ML IV ONE (16:34)
== END 2020-01-05 10:00 | disposition home or self-care (01) ==
LOC: SDC-PAIN 08:13
PROVIDERS: ATTEND Psychiatry & Neurology Pain Medicine
DX: M54.16 Radiculopathy, lumbar region (principal); E78.5 Hyperlipidemia, unspecified; M79.7 Fibromyalgia; I12.9 Hypertensive chronic kidney disease with stage 1 through stage 4 chronic kidney disease, or unspecified chronic kidney disease; E11.22 Type 2 diabetes mellitus with diabetic chronic kidney disease; N18.4 Chronic kidney disease, stage 4 (severe); G47.30 Sleep apnea, unspecified; Z79.899 Other long term (current) drug therapy
CPT/HCPCS: 64483; 64484; 72100; 77003; 82962; 99100; J1030; J2704; Q9966

== ENCOUNTER 2020-03-04 13:41 | Observation (INO) | payer MEDICARE ==
--- NOTE | 2020-03-04 14:18 | ERPHSYRPT ---
- History of Present Illness Time Seen by Provider: 03/04/20 14:02 Source: patient, family, EMS Physician History: 69 years old female with multiple medical problems including coronary artery disease status post stenting, hypertension, hyperlipidemia, diabetes mellitus is brought in the ER via EMS with chief complaint of altered mental status. Patient/ report episode of confusion since morning where she could not answer simple questions appropriately. She has no focal numbness or weakness. No difficulty speech. No difficulty vision. Denies any chest pain palpitations or shortness of breath. Denies any urinary symptoms. No abdominal pain nausea or vomiting reported. Patient is answering most of the questions appropriately but is confused about month and dates. She was also feeling dizzy and lightheaded earlier with ambulation and weak all over. Timing/Duration: today, sudden Modifying Factors: Improves With: nothing Associated Symptoms: weakness, No nausea, No vomiting, No abdominal pain, No shortness of breath, No heartburn, No diaphoresis, No cough, No chills, No chest pain, No fever, No headaches, No loss of appetite, No malaise, No syncope, No seizure Allergies/Adverse Reactions: hydromorphone [From Dilaudid] Allergy (Severe, Verified 03/04/20 14:13) Difficulty Breathing meclofenamic acid [From Meclomen] Allergy (Severe, Verified 03/04/20 14:13) Skin Irritation morphine Allergy (Severe, Verified 03/04/20 14:13) Difficulty Breathing Sulfa (Sulfonamide Antibiotics) Allergy (Severe, Verified 03/04/20 14:13) Extreme constipation ciprofloxacin [From Cipro] Allergy (Intermediate, Verified 03/04/20 14:13) Itching diphenhydramine [From Benadryl] Allergy (Intermediate, Verified 03/04/20 14:13) Swelling of Tongue and Lips pt unable to take po due to swelling of tongue and lips. Can take IM. fexofenadine [From Annmarie] Allergy (Mild, Verified 03/04/20 14:13) Difficulty Swallowing acetaminophen [From Milton] Adverse Reaction (Intermediate, Verified 03/04/20 14:13) agitaition and hyperactivity amlodipine Adverse Reaction (Intermediate, Verified 03/04/20 14:13) Swelling of Feet betamethasone [From Celestone] Adverse Reaction (Intermediate, Verified 03/04/20 14:13) elvated blood pressure and blood sugar clonidine [From Catapres] Adverse Reaction (Intermediate, Verified 03/04/20 14:13) Difficulty Breathing clotrimazole [From Lotrimin] Adverse Reaction (Intermediate, Verified 03/04/20 14:13) Skin Irritation colchicine Adverse Reaction (Intermediate, Verified 03/04/20 14:13) Swelling of Joints colesevelam [From WelChol] Adverse Reaction (Intermediate, Verified 03/04/20 14:13) leg pain enalaprilat [From Vasotec] Adverse Reaction (Intermediate, Verified 03/04/20 14:13) severe sinus condition escitalopram [From Lexapro] Adverse Reaction (Intermediate, Verified 03/04/20 14:13) elvated blood sugar fluvastatin [From Lescol] Adverse Reaction (Intermediate, Verified 03/04/20 14:13) leg pain hydralazine Adverse Reaction (Intermediate, Verified 03/04/20 14:13) dizziness and balance issues hydrocodone [From Milton] Adverse Reaction (Intermediate, Verified 03/04/20 14:13) agitaition and hyperactivity lidocaine [From Lidoderm] Adverse Reaction (Intermediate, Verified 03/04/20 14:13) Nausea and Vomiting metformin Adverse Reaction (Intermediate, Verified 03/04/20 14:13) Diarrhea metronidazole Adverse Reaction (Intermediate, Verified 03/04/20 14:13) Diarrhea oxycodone [From OxyContin] Adverse Reaction (Intermediate, Verified 03/04/20 14:13) Difficulty Breathing pilocarpine [From Salagen (pilocarpine)] Adverse Reaction (Intermediate, Verified 03/04/20 14:13) Vomiting rosuvastatin [From Crestor] Adverse Reaction (Intermediate, Verified 03/04/20 14:13) leg cramps terbinafine [From Lamisil] Adverse Reaction (Intermediate, Verified 03/04/20 14:13) Skin Irritation bupropion [From Wellbutrin] Adverse Reaction (Mild, Verified 03/04/20 14:13) agitation and hyperactivity cholecalciferol (vitamin D3) [From Vitamin D3] Adverse Reaction (Mild, Verified 03/04/20 14:13) burning of tongue and cracked sore lips ezetimibe [From Vytorin] Adverse Reaction (Mild, Verified 03/04/20 14:13) leg cramps lamotrigine [From Lamictal] Adverse Reaction (Mild, Verified 03/04/20 14:13) Stomach Pain lithium Adverse Reaction (Mild, Verified 03/04/20 14:13) Diarrhea simvastatin [From Vytorin] Adverse Reaction (Mild, Verified 03/04/20 14:13) leg cramps ziprasidone [From Geodon] Adverse Reaction (Mild, Verified 03/04/20 14:13) Swelling of Feet buspirone Adverse Reaction (Verified 03/04/20 14:13) Home Medications: Acetaminophen [Tylenol] 650 mg PO Q6HPRN PRN 08/20/17 [History] Bumetanide [Bumex] 2 mg PO DAILY 08/20/17 [History] Duloxetine HCl [Cymbalta] 60 mg PO DAILY 08/20/17 [History] Gabapentin [Neurontin] 600 mg PO TID 08/20/17 [History] Isosorbide Mononitrate 30 mg [Imdur 30 MG] 30 mg PO DAILY 08/20/17 [History] Loratadine 10 mg [Claritin 10 mg] 10 mg PO HS 08/20/17 [History] Multivitamin [Multi-Vitamin Daily] 1 each PO DAILY 08/20/17 [History] Nitroglycerin 0.4 mg Tablet [Nitrostat 0.4 MG Tablet] 0.4 mg SL Q5MIN PRN MR X 3 PRN 08/20/17 [History] Potassium Chloride 10 Meq Tab* [Klor Con 10 MEQ] 50 meq PO DAILY 08/20/17 [History] Trazodone HCl 50 mg [Desyrel 50 mg] 100 mg PO HS 08/20/17 [History] Metoprolol Succinate 50 mg [Toprol Xl 50 MG] 50 mg PO HS 12/16/17 [History] Allopurinol [Zyloprim] 300 mg PO HS 03/17/19 [History] Clopidogrel Bisulfate 75 mg [PLAVIX 75 MG Tablet] 75 mg PO DAILY 03/17/19 [History] Insulin Lispro [Humalog] 0 unit SQ AC 03/17/19 [History] Glimepiride 4 mg [Amaryl 4 mg] 4 mg PO DAILY 06/12/19 [History] Amlodipine Besylate 10 mg PO DAILY 10/20/19 [History] Aspirin 81 gm Chew [Baby Aspirin 81 mg Chew] 81 mg PO HS 10/20/19 [History] Cholecalciferol (Vitamin D3) [Vitamin D3] 2,000 unit PO UD 10/20/19 [History] Losartan Potassium 25 mg PO DAILY 10/20/19 [History] Olanzapine 7.5 mg PO TID 10/20/19 [History] Tramadol HCl 50 mg [Ultram 50 mg] 75 mg PO Q8HPRN PRN 10/20/19 [History] Evolocumab [Repatha Sureclick] 140 mg SQ UD 03/04/20 [History] Insulin Glargine,Hum.rec.anlog [Basaglar Kwikpen U-100] 1 unit SQ UD 03/04/20 [History] Hx Tetanus, Diphtheria Vaccination/Date Given: Yes Hx Influenza Vaccination/Date Given: Yes Hx Pneumococcal Vaccination/Date Given: Yes - Review of Systems Constitutional: Fatigue, Weakness, No Fever, No Chills Ears, Nose, & Throat: No Symptoms Respiratory: No Symptoms Cardiac: No Symptoms Abdominal/Gastrointestinal: No Symptoms Genitourinary Symptoms: No Symptoms Musculoskeletal: No Symptoms Neurological: Dizziness Psychological: No Symptoms Endocrine: No Symptoms Hematologic/Lymphatic: No Symptoms Immunological/Allergic: No Symptoms - Past Medical History Pertinent Past Medical History: Yes Neurological History: Peripheral Neuropathy ENT History: Cataracts Cardiac History: Hypertension, Other Respiratory History: No Pertinent History Endocrine Medical History: Adrenal Insufficiency, Diabetes Type II Musculoskeletal History: Osteoarthritis GI Medical History: Irritable Bowel History: No Pertinent History, Renal Disease, Other Psycho-Social History: Anxiety, Depression Female Reproductive Disorders: No Pertinent History, Breast Cancer Other Medical History: back surgery, may have to start dialysis, trans aortic valve replacement, CARDIAC STENTS X3 - Past Surgical History Past Surgical History: Yes Neuro Surgical History: No Pertinent History Cardiac: Other Respiratory: No Pertinent History Gastrointestinal: Appendectomy, Bowel Surgery, Cholecystectomy Genitourinary: No Pertinent History Musculoskeletal: No Pertinent History Female Surgical History: No Pertinent History, Hysterectomy, Section, Tubal Ligation, Lumpectomy Other Surgical History: intestinal bypass and then reverse,sinus surgery times 2 roof/mouth then sinus surgery nose,left foot planters wart,right breast tumor,rt ankle/right leg sx after fx,left breast mastectomy with sentinel removed,6 marek steroid inj,t.a.v.r.-transcatheter aortic value replacement,lumbar laminectomy, steroid injections in back multiple times a year - Social History Smoking Status: Never smoker Exposure to second hand smoke: No Drug Use: none Patient Lives Alone: No - Nursing Vital Signs Nursing Vital Signs: Initial Vital Signs Temperature 98.8 F 03/04/20 13:47 Pulse Rate 89 03/04/20 13:47 Blood Pressure 202/92 03/04/20 13:47 O2 Sat by Pulse Oximetry 95 03/04/20 13:47 Pain Scale Pain Intensity 3 - Physical Exam General Appearance: no apparent distress, alert Eye Exam: PERRL/EOMI, eyes nml inspection Ears, Nose, Throat Exam: normal ENT inspection, TMs normal, pharynx normal Neck Exam: normal inspection, supple, full range of motion Respiratory Exam: normal breath sounds, lungs clear Cardiovascular Exam: regular rate/rhythm, normal heart sounds Gastrointestinal/Abdomen Exam: soft, normal bowel sounds, No tenderness Back Exam: normal inspection, normal range of motion Extremity Exam: normal inspection, normal range of motion, pelvis stable Neurologic Exam: alert, cooperative, trial examiner II-XII nml as tested, nml cerebellar function, sensation nml, confusion, No motor deficits, No sensory deficit Skin Exam: normal color SpO2 Interpretation: normal SpO2: 95 O2 Delivery: Room Air - Course Nursing assessment & vital signs reviewed: Yes EKG Interpreted by Me: RATE (83), Sinus Rhythm, Left [place] Deviation, LAFB, Non- specific ST Changes Ordered Tests: Active Orders 24 hr Category Date Time Status Bedrest ROUTINE Activity 03/04/20 17:54 Active Bedrest with BRP/BSC ROUTINE Activity 03/04/20 17:54 Active Up With Assistance ROUTINE Activity 03/04/20 17:54 Active Accucheck Q4H Care 03/04/20 17:54 Active Code Status Order ROUTINE Care 03/04/20 17:54 Active EKG-ER Only STAT Care 03/04/20 13:57 Completed IV Care Q6H Care 03/04/20 17:54 Active IV Insertion STAT Care 03/04/20 13:[address] in Observation ROUTINE Care 03/04/20 17:54 Active Robin Maurer ROUTINE Care 03/04/20 17:54 Active Weight,Daily 0600 Care 03/04/20 17:54 Active Consistent Carbohydrate Diet 1800 Calorie Diet 03/04/20 Dinner Active CHEST 1 VIEW (PORTABLE) Stat Exams 03/04/20 13:58 Completed HEAD WITHOUT CONTRAST [CT] Stat Exams 03/04/20 14:02 Completed BLOOD CULTURE Stat Lab 03/04/20 14:45 Received CBC W DIFF AM.LAB Lab 03/05/20 04:00 Ordered CBC W DIFF Stat Lab 03/04/20 14:40 Completed CMP AM.LAB Lab 03/05/20 04:00 Ordered CMP Stat Lab 03/04/20 14:40 Completed CULTURE,URINE Stat Lab 03/04/20 Received Lactic Acid Stat Lab 03/04/20 13:57 Completed MAG [MAGNESIUM] Stat Lab 03/04/20 14:40 Completed TROPONIN Q3H Lab 03/04/20 14:40 Completed TROPONIN Q3H Lab 03/04/20 17:05 Completed TROPONIN Q3H Lab 03/04/20 20:10 Completed TROPONIN Q3H Lab 03/04/20 23:15 Received TROPONIN Q3H Lab 03/05/20 02:00 Ordered TSH [TSH, 3RD Generation] Stat Lab 03/04/20 14:40 Completed UA W/RFX UR CULTURE Stat Lab 03/04/20 Completed Transfer Order Routine Transfer 03/04/20 Completed Medication Summary Generic Name Dose Route Start Last Admin Trade Name Freq PRN Reason Stop Dose Admin Acetaminophen 650 mg 03/04/20 17:54 Tylenol 325 Mg PO 04/03/20 17:53 Q4H PRN PRN PAIN AND/OR FEVER Allopurinol 300 mg 03/04/20 22:00 03/04/20 22:00 Zyloprim 300 Mg PO 04/03/20 21:59 300 mg HS CESAR Administration Aspirin 81 mg 03/04/20 22:00 03/04/20 22:00 Ecotrin 81 Mg PO 04/03/20 21:59 81 mg HS CESAR Administration Famotidine 20 mg 03/04/20 22:00 03/04/20 22:02 Pepcid 20 Mg Vial IV 04/03/20 21:59 20 mg Q12HT CESAR Administration Ceftriaxone Sodium/Dextrose 1 g in 50 mls @ 100 mls/hr 03/05/20 10:00 Rocephin 1 Gm-D5w 50 Ml Bag IV 04/04/20 09:59 Q24H10 CESAR Insulin Human Lispro 0 unit 03/04/20 17:54 Humalog SQ 04/03/20 17:53 UD PRN HYPERGLYCEMIA Loratadine 10 mg 03/04/20 22:00 03/04/20 22:00 Claritin 10 Mg PO 04/03/20 21:59 10 mg HS CESAR Administration Metoprolol Succinate 50 mg 03/04/20 23:13 03/04/20 22:05 Toprol Xl 50 Mg PO 04/03/20 21:59 50 mg HS CESAR Administration Ondansetron HCl 4 mg 03/04/20 17:54 Zofran 4 Mg/2 Ml Vial IV 04/03/20 17:53 Q6H PRN PRN NAUSEA/VOMITING Tramadol HCl 75 mg 03/04/20 22:00 03/04/20 22:00 Ultram 50 Mg PO 04/03/20 21:59 75 mg Q8H CESAR Administration Trazodone HCl 100 mg 03/04/20 22:00 03/04/20 22:01 Desyrel 50 Mg PO 04/03/20 21:59 100 mg HS CESAR Administration Discontinued Medications Generic Name Dose Route Start Last Admin Trade Name Freq PRN Reason Stop Dose Admin Albuterol/Ipratropium 3 ml 03/04/20 17:54 Duoneb 0.5-3 Mg/3 Ml Neb IH 04/03/20 17:53 Q4HPRN PRN SHORTNESS OF BREATH/WHEEZING Ceftriaxone Sodium/Dextrose 1 g in 50 mls @ 100 mls/hr 03/04/20 15:54 03/04/20 16:34 Rocephin 1 Gm-D5w 50 Ml Bag IV 03/04/20 16:23 Infused STAT STA Infusion Ceftriaxone Sodium/Dextrose Confirm 03/04/20 15:59 Rocephin 1 Gm-D5w 50 Ml Bag Administered 03/04/20 16:00 Dose 1 g in 50 mls @ ud IV .STK-MED ONE Metoprolol Succinate 50 mg 03/04/20 22:00 03/04/20 23:16 Toprol-Xl 25mg Tablets PO 04/03/20 21:59 Not Given [facility] Metoprolol Succinate Confirm 03/04/20 21:36 Toprol Xl 50 Mg Administered 03/04/20 21:37 Dose 50 mg PO .STK-MED ONE Metoprolol Succinate 50 mg 03/05/20 22:00 Toprol Xl 50 Mg PO 04/04/20 21:59 HS [facility] Lab/Rad Data: Laboratory Result Diagrams 03/04/20 14:40 03/04/20 14:40 Laboratory Results 03/04/20 03/04/20 03/04/20 Range/Units 17:05 14:40 14:40 WBC (4.0-10.5) K/mm3 RBC (4.1-5.4) M/mm3 Hgb (12.0-16.0) gm/dl Hct (35-47) % MCV (78-100) fl MCH (26-32) pg MCHC (32-36) g/dl RDW (11.5-14.0) % Plt Count (150-450) K/mm3 MPV (7.5-11.0) fl Gran % (36.0-66.0) % Eos # (Auto) (0-0.5) Absolute Lymphs (auto) (1.0-4.6) Absolute Monos (auto) (0.0-1.3) Lymphocytes % (24.0-44.0) % Monocytes % (0.0-12.0) % Eosinophils % (0.00-5.0) % Basophils % (0.0-0.4) % Absolute Granulocytes (1.4-6.9) Basophils # (0-0.4) Sodium (137-145) mmol/L Potassium (3.5-5.1) mmol/L Chloride (98-107) mmol/L Carbon Dioxide (22-30) mmol/L Anion Gap (5-15) MEQ/L BUN (7-17) mg/dL Creatinine (0.52-1.04) mg/dL Estimated GFR ML/MIN Glucose (74-106) mg/dL Hemoglobin A1c (4.5-6.0) % Lactic Acid (0.4-2.0) Calcium (8.4-10.2) mg/dL Magnesium 2.0 (1.6-2.3) mg/dL Total Bilirubin (0.2-1.3) mg/dL AST (14-36) U/L ALT (0-35) U/L Alkaline Phosphatase (38-126) U/L Troponin I < 0.012 < 0.012 (0.000-0.034) ng/mL Serum Total Protein (6.3-8.2) g/dL Albumin (3.5-5.0) g/dL TSH 3rd Generation 3.110 (0.47-4.68) mIU/L 03/04/20 03/04/20 03/04/20 Range/Units 14:40 14:40 13:57 WBC 6.3 (4.0-10.5) K/mm3 RBC 4.38 (4.1-5.4) M/mm3 Hgb 13.8 (12.0-16.0) gm/dl Hct 40.8 (35-47) % MCV 93.2 (78-100) fl MCH 31.5 (26-32) pg MCHC 33.8 (32-36) g/dl RDW 15.0 H (11.5-14.0) % Plt Count 126 L (150-450) K/mm3 MPV 10.3 (7.5-11.0) fl Gran % 65.3 (36.0-66.0) % Eos # (Auto) 0.34 (0-0.5) Absolute Lymphs (auto) 1.27 (1.0-4.6) Absolute Monos (auto) 0.55 (0.0-1.3) Lymphocytes % 20.1 L (24.0-44.0) % Monocytes % 8.7 (0.0-12.0) % Eosinophils % 5.4 H (0.00-5.0) % Basophils % 0.5 (0.0-0.4) % Absolute Granulocytes 4.12 (1.4-6.9) Basophils # 0.03 (0-0.4) Sodium 135 L (137-145) mmol/L Potassium 3.9 (3.5-5.1) mmol/L Chloride 101 (98-107) mmol/L Carbon Dioxide 28 (22-30) mmol/L Anion Gap 10.7 (5-15) MEQ/L BUN 18 H (7-17) mg/dL Creatinine 1.33 H (0.52-1.04) mg/dL Estimated GFR 41.9 ML/MIN Glucose 242 H (74-106) mg/dL Hemoglobin A1c (4.5-6.0) % Lactic Acid 1.3 (0.4-2.0) Calcium 9.3 (8.4-10.2) mg/dL Magnesium (1.6-2.3) mg/dL Total Bilirubin 0.50 (0.2-1.3) mg/dL AST 24 (14-36) U/L ALT 18 (0-35) U/L Alkaline Phosphatase 116 (38-126) U/L Troponin I (0.000-0.034) ng/mL Serum Total Protein 6.3 (6.3-8.2) g/dL Albumin 3.9 (3.5-5.0) g/dL TSH 3rd Generation (0.47-4.68) mIU/L 03/04/20 Range/Units 13:00 WBC (4.0-10.5) K/mm3 RBC (4.1-5.4) M/mm3 Hgb (12.0-16.0) gm/dl Hct (35-47) % MCV (78-100) fl MCH (26-32) pg MCHC (32-36) g/dl RDW (11.5-14.0) % Plt Count (150-450) K/mm3 MPV (7.5-11.0) fl Gran % (36.0-66.0) % Eos # (Auto) (0-0.5) Absolute Lymphs (auto) (1.0-4.6) Absolute Monos (auto) (0.0-1.3) Lymphocytes % (24.0-44.0) % Monocytes % (0.0-12.0) % Eosinophils % (0.00-5.0) % Basophils % (0.0-0.4) % Absolute Granulocytes (1.4-6.9) Basophils # (0-0.4) Sodium (137-145) mmol/L Potassium (3.5-5.1) mmol/L Chloride (98-107) mmol/L Carbon Dioxide (22-30) mmol/L Anion Gap (5-15) MEQ/L BUN (7-17) mg/dL Creatinine (0.52-1.04) mg/dL Estimated GFR ML/MIN Glucose (74-106) mg/dL Hemoglobin A1c 7.06 H (4.5-6.0) % Lactic Acid (0.4-2.0) Calcium (8.4-10.2) mg/dL Magnesium (1.6-2.3) mg/dL Total Bilirubin (0.2-1.3) mg/dL AST (14-36) U/L ALT (0-35) U/L Alkaline Phosphatase (38-126) U/L Troponin I (0.000-0.034) ng/mL Serum Total Protein (6.3-8.2) g/dL Albumin (3.5-5.0) g/dL TSH 3rd Generation (0.47-4.68) mIU/L - Progress Progress: improved, re-examined Progress Note: 03/04/20 patient is not much confused on presentation in the ER. She has a nonfocal neuro exam grossly. I have obtained CT head which is negative. EKG did not show any acute ischemic changes. Negative initial troponin. She does have UTI and started on antibiotics. No obvious pneumonia. No obvious electrolyte abnormality. Has chronic kidney disease which is stable. I think UTI is the reason for her encephalopathy. Discussed with Dr. Francis and patient is being admitted Discussed with : Mukesh Will see patient in: hospital (observation) Counseled pt/family regarding: lab results, diagnosis, rad results - Departure Departure Disposition: Observation Clinical Impression: Acute UTI (urinary tract infection), Encephalopathy acute Chronic kidney disease (CKD) Qualifiers: Chronic kidney disease stage: unspecified stage Qualified Code(s): N18.9 - Chronic kidney disease, unspecified Condition: Fair Critical Care Time: No
[2020-03-04 14:58] LABS: Absolute Neutrophil Ct (ANC) 4.12 (1.4-6.9); BASOPHIL % 0.5 % (0.0-0.4); Basophil (Absolute #) 0.03 (0-0.4); Eosinophil % 5.4 % (0.00-5.0); Eosinophil (Absolute #) 0.34 (0-0.5); Hematocrit 40.8 % (35-47); Hemoglobin 13.8 gm/dl (12.0-16.0); Lymphocyte (Absolute #) 1.27 (1.0-4.6); Lymphocytes % 20.1 % (24.0-44.0); Mean Cell Volume 93.2 fl (78-100); Mean Corpuscular Hemoglobin 31.5 pg (26-32); Mean Corpuscular Hgb Concent. 33.8 g/dl (32-36); Mean Platelet Volume 10.3 fl (7.5-11.0); Monocyte (Absolute #) 0.55 (0.0-1.3); Monocytes % 8.7 % (0.0-12.0); Neutrophil % 65.3 % (36.0-66.0); Platelet Count 126 K/mm3 (150-450); Red Blood Count 4.38 M/mm3 (4.1-5.4); White Blood Count 6.3 K/mm3 (4.0-10.5)
[2020-03-04 15:16] LABS: ALBUMIN 3.9 g/dL (3.5-5.0); ANION GAP 10.7 MEQ/L (5-15); BILIRUBIN,TOTAL 0.5 mg/dL (0.2-1.3); Calcium 9.3 mg/dL (8.4-10.2); Creatinine 1 1.33 mg/dL (0.52-1.04); EST GLOMERULAR FILTRATION RATE 41.9 ML/MIN; Potassium 3.9 mmol/L (3.5-5.1); Total Protein 6.3 g/dL (6.3-8.2)
[2020-03-04 15:29] LABS: Appearance CLEAR (CLEAR); Bilirubin NEGATIVE (NEGATIVE); Blood NEGATIVE Ery/ul (0-5); Epithelial Cells RARE /HPF (FEW); Glucose NEGATIVE (NEGATIVE); Hyaline Casts 0-2 /LPF (0-2); Ketones NEGATIVE (NEGATIVE); Leukocyte Esterase TRACE (NEGATIVE); Mucus SLIGHT /HPF (NEGATIVE); Nitrite NEGATIVE (NEGATIVE); Protein,Urine Dip 30 (Negative); RBC 0-2 /HPF (0-2); Specific Gravity 1.012 (1.005-1.025); Urobilinogen NEGATIVE mg/dL (0-1)
[2020-03-04 15:36] LABS: TSH, 3RD Generation 3.11 mIU/L (0.47-4.68)
[2020-03-04] MEDS ORDERED: ROCEPHIN 1 Gm-D5w 50 ml Bag** 1 G/50 ML IVPB IV STA (15:54)
[2020-03-04] MEDS ORDERED: ROCEPHIN 1 Gm-D5w 50 ml Bag** 1 G/50 ML IVPB IV ONE (15:59)
[2020-03-04] MEDS ORDERED: TYLENOL 325 MG PO PRN (17:54)
[2020-03-04] MEDS ORDERED: Zofran 4 MG/2 ML VIAL IV PRN (17:54)
[2020-03-04] MEDS ORDERED: DUONEB 0.5-3 MG/3 ml Neb IH PRN (17:54)
--- NOTE | 2020-03-04 18:34 | XRAY ---
Indication: Confusion. Comparison: October 20, 2019. Portable chest remains markedly underinflated and clear. Heart is not enlarged again with aortic valve replacement. Bony thorax intact again with mild osteopenia and degenerative changes. Impression: Continuing nonacute underinflated chest with chronic features. Comment: Preliminary interpretation was made by [facility]. No critical discrepancy.
--- NOTE | 2020-03-04 18:38 | XRAY ---
Indication: Confusion. Multiple contiguous axial images obtained through the head without contrast. Comparison: December 16, 2017. Images through base of brain slightly degraded by motion artifact. Age-appropriate atrophy. No acute intracranial hemorrhage, abnormal extra-axial fluid collection, or mass effect. Fourth ventricle is midline without hydrocephalus. Bony calvarium remains dense and thickened. Visualized paranasal sinuses and mastoid air cells are clear. Impression: 1. Mild motion artifact. 2. No new or acute intracranial abnormalities. 3. Again incidental bony hyperostosis. Comment: Preliminary interpretation was made by [facility]. No critical discrepancy.
[2020-03-04] MEDS ORDERED: Toprol Xl 50 MG PO ONE (21:36)
[2020-03-04] MEDS ORDERED: HUMALOG ONE (21:51)
[2020-03-04] MEDS ORDERED: CLARITIN 10 MG PO SCH (22:00)
[2020-03-04] MEDS ORDERED: Toprol-Xl 25MG Tablets PO SCH (22:00)
[2020-03-04] MEDS ORDERED: DESYREL 50 MG PO SCH (22:00)
[2020-03-04] MEDS: HUMALOG SQ PRN (22:00)
[2020-03-04] MEDS: ULTRAM 50 MG PO SCH (22:00)
[2020-03-04] MEDS ORDERED: Pepcid 20 MG VIAL IV SCH (22:00)
[2020-03-04] MEDS ORDERED: ECOTRIN 81 MG PO SCH (22:00)
[2020-03-04] MEDS ORDERED: ZYLOPRIM 300 MG PO SCH (22:00)
[2020-03-04] MEDS ORDERED: Toprol Xl 50 MG PO SCH (23:13)
[2020-03-05] MEDS: HUMALOG SQ PRN ×2 (02:42→08:03)
[2020-03-05 04:57] LABS: ANION GAP 12.4 MEQ/L (5-15); Absolute Neutrophil Ct (ANC) 5.78 (1.4-6.9); BASOPHIL % 0.5 % (0.0-0.4); BILIRUBIN,TOTAL 0.5 mg/dL (0.2-1.3); Basophil (Absolute #) 0.05 (0-0.4); Calcium 9.7 mg/dL (8.4-10.2); Creatinine 1 1.39 mg/dL (0.52-1.04); EST GLOMERULAR FILTRATION RATE 39.8 ML/MIN; Eosinophil % 5.6 % (0.00-5.0); Eosinophil (Absolute #) 0.53 (0-0.5); Hematocrit 34.7 % (35-47); Hemoglobin 11.7 gm/dl (12.0-16.0); Lymphocyte (Absolute #) 2.26 (1.0-4.6); Lymphocytes % 23.7 % (24.0-44.0); Mean Cell Volume 93.8 fl (78-100); Mean Corpuscular Hemoglobin 31.6 pg (26-32); Mean Corpuscular Hgb Concent. 33.7 g/dl (32-36); Monocyte (Absolute #) 0.91 (0.0-1.3); Monocytes % 9.5 % (0.0-12.0); Neutrophil % 60.7 % (36.0-66.0); Platelet Count 184 K/mm3 (150-450); Potassium 3.7 mmol/L (3.5-5.1); Red Cell Distribution Width 14.8 % (11.5-14.0); White Blood Count 9.5 K/mm3 (4.0-10.5)
[2020-03-05 05:27] VITALS: O2SAT 94
[2020-03-05 07:45] VITALS: BP 158/70; PULSE 84
--- NOTE | 2020-03-05 07:51 | PCM.HP ---
History of Present Illness - Chief Complaint Chief Complaint: confusion for 1-2 days History of Present Illness: is a 69 year old female.with multiple medical problems including coronary artery disease status post stenting, hypertension, hyperlipidemia, diabetes mellitus is brought in the ER via EMS with chief complaint of altered mental status. Patient/ report episode of confusion since morning where she could not answer simple questions appropriately. She has no focal numbness or weakness. No difficulty speech. No difficulty vision. Denies any chest pain palpitations or shortness of breath. Denies any urinary symptoms. No abdominal pain nausea or vomiting reported. Patient is answering most of the questions appropriately but is confused about month and dates. She was also feeling dizzy and lightheaded earlier with ambulation and weak all over. Timing/Duration: today, sudden Modifying Factors: Improves With: nothing Associated Symptoms: weakness, No nausea, No vomiting, No abdominal pain, No shortness of breath, No heartburn, No diaphoresis, No cough, No chills, No chest pain, No fever, No headaches, No loss of appetite, No malaise, No syncope, No seizure - Review of Systems Constitutional: Lethargy, Weakness, No Fever, No Chills Eyes: No Symptoms Ears, Nose, & Throat: No Symptoms Respiratory: No Cough, No Short Of Breath Cardiac: No Chest Pain, No Edema, No Syncope Abdominal/Gastrointestinal: No Abdominal Pain, No Nausea, No Vomiting, No Diarrhea Genitourinary Symptoms: No Dysuria Musculoskeletal: No Back Pain, No Neck Pain Skin: No Rash Neurological: Lethargy, Other (confusion), No Dizziness, No Focal Weakness, No Gait Changes, No Headache, No Sensory Changes Psychological: No Symptoms Endocrine: No Symptoms Hematologic/Lymphatic: No Symptoms Immunological/Allergic: No Symptoms Medications & Allergies Home Medications: Home Medication List Acetaminophen [Tylenol] 650 mg PO Q6H 08/20/17 [History Confirmed 03/05/20] Bumetanide [Bumex] 2 mg PO DAILY 08/20/17 [History Confirmed 03/05/20] Duloxetine HCl [Cymbalta] 60 mg PO DAILY 08/20/17 [History Confirmed 03/05/20] Gabapentin [Neurontin] 1,800 mg PO DAILY 08/20/17 [History Confirmed 03/05/20] Isosorbide Mononitrate 30 mg [Imdur 30 MG] 30 mg PO DAILY 08/20/17 [History Confirmed 03/05/20] Loratadine 10 mg [Claritin 10 mg] 10 mg PO HS 08/20/17 [History Confirmed 03/05/20] Multivitamin [Multi-Vitamin Daily] 1 each PO DAILY 08/20/17 [History Confirmed 03/05/20] Nitroglycerin 0.4 mg Tablet [Nitrostat 0.4 MG Tablet] 0.4 mg SL Q5MIN PRN MR X 3 PRN 08/20/17 [History Confirmed 03/05/20] Potassium Chloride 10 Meq Tab* [Klor Con 10 MEQ] 50 meq PO DAILY 08/20/17 [History Confirmed 03/05/20] Trazodone HCl 50 mg [Desyrel 50 mg] 100 mg PO HS 08/20/17 [History Confirmed 03/05/20] Metoprolol Succinate 50 mg [Toprol Xl 50 MG] 50 mg PO HS 12/16/17 [History Confirmed 03/05/20] Allopurinol [Zyloprim] 300 mg PO HS 03/17/19 [History Confirmed 03/05/20] Clopidogrel Bisulfate 75 mg [PLAVIX 75 MG Tablet] 75 mg PO DAILY 03/17/19 [History Confirmed 03/05/20] Insulin Lispro [Humalog] 0 unit SQ AC 03/17/19 [History Confirmed 03/05/20] Glimepiride 4 mg [Amaryl 4 mg] 4 mg PO DAILY 06/12/19 [History Confirmed 03/05/20] Amlodipine Besylate 10 mg PO DAILY 10/20/19 [History Confirmed 03/05/20] Aspirin 81 gm Chew [Baby Aspirin 81 mg Chew] 81 mg PO HS 10/20/19 [History Confirmed 03/05/20] Cholecalciferol (Vitamin D3) [Vitamin D3] 2,000 unit PO UD 10/20/19 [History Confirmed 03/05/20] Losartan Potassium 25 mg PO DAILY 10/20/19 [History Confirmed 03/05/20] Olanzapine 7.5 mg PO DAILY 10/20/19 [History Confirmed 03/05/20] Tramadol HCl 50 mg [Ultram 50 mg] 75 mg PO Q8H 10/20/19 [History Confirmed 03/05/20] Evolocumab [Repatha Sureclick] 140 mg SQ UD 03/04/20 [History Confirmed 03/05/20] Insulin Glargine,Hum.rec.anlog [Basaglar Kwikpen U-100] 1 unit SQ UD 03/04/20 [History Confirmed 03/05/20] Cyanocobalamin (Vitamin B-12) [B-12] 1,000 mcg PO DAILY 03/05/20 [History Confirmed 03/05/20] Allergies/Adverse Reactions: Allergies Allergy/AdvReac Type Severity Reaction Status Date / Time hydromorphone [From Dilaudid] Allergy Severe Difficulty Verified 03/04/20 14:13 Breathing meclofenamic acid Allergy Severe Skin Verified 03/04/20 14:13 [From Meclomen] Irritation morphine Allergy Severe Difficulty Verified 03/04/20 14:13 Breathing Sulfa (Sulfonamide Allergy Severe Verified 03/04/20 14:13 Antibiotics) ciprofloxacin [From Cipro] Allergy Intermediate Itching Verified 03/04/20 14:13 diphenhydramine Allergy Intermediate Swelling Verified 03/04/20 14:13 [From Benadryl] of Tongue and Lips fexofenadine [From Annmarie] Allergy Mild Difficulty Verified 03/04/20 14:13 Swallowing acetaminophen [From [place]] AdvReac Intermediate Verified 03/04/20 14:13 amlodipine AdvReac Intermediate Swelling Verified 03/04/20 14:13 of Feet betamethasone AdvReac Intermediate Verified 03/04/20 14:13 [From Celestone] clonidine [From Catapres] AdvReac Intermediate Difficulty Verified 03/04/20 14:13 Breathing clotrimazole [From Lotrimin] AdvReac Intermediate Skin Verified 03/04/20 14:13 Irritation colchicine AdvReac Intermediate Swelling Verified 03/04/20 14:13 of Joints colesevelam [From WelChol] AdvReac Intermediate Verified 03/04/20 14:13 enalaprilat [From Vasotec] AdvReac Intermediate Verified 03/04/20 14:13 escitalopram [From Lexapro] AdvReac Intermediate Verified 03/04/20 14:13 fluvastatin [From Lescol] AdvReac Intermediate Verified 03/04/20 14:13 hydralazine AdvReac Intermediate Verified 03/04/20 14:13 hydrocodone [From [place]] AdvReac Intermediate Verified 03/04/20 14:13 lidocaine [From Lidoderm] AdvReac Intermediate Nausea and Verified 03/04/20 14:13 Vomiting metformin AdvReac Intermediate Diarrhea Verified 03/04/20 14:13 metronidazole AdvReac Intermediate Diarrhea Verified 03/04/20 14:13 oxycodone [From OxyContin] AdvReac Intermediate Difficulty Verified 03/04/20 14:13 Breathing pilocarpine AdvReac Intermediate Vomiting Verified 03/04/20 14:13 [From [place] (pilocarpine)] rosuvastatin [From Crestor] AdvReac Intermediate Verified 03/04/20 14:13 terbinafine [From Lamisil] AdvReac Intermediate Skin Verified 03/04/20 14:13 Irritation bupropion [From Wellbutrin] AdvReac Mild Verified 03/04/20 14:13 cholecalciferol (vitamin D3) AdvReac Mild Verified 03/04/20 14:13 [From Vitamin D3] ezetimibe [From Vytorin] AdvReac Mild Verified 03/04/20 14:13 lamotrigine [From Lamictal] AdvReac Mild Stomach Verified 03/04/20 14:13 Pain lithium AdvReac Mild Diarrhea Verified 03/04/20 14:13 simvastatin [From Vytorin] AdvReac Mild Verified 03/04/20 14:13 ziprasidone [From Geodon] AdvReac Mild Swelling Verified 03/04/20 14:13 of Feet buspirone AdvReac Verified 03/04/20 14:13 - Past Medical History Past Medical History: Yes Neurological History: Peripheral Neuropathy ENT History: Cataracts Cardiac History: Hypertension, Other Respiratory History: No Pertinent History Endocrine Medical History: Adrenal Insufficiency, Diabetes Type II Musculoskelatal History: Osteoarthritis GI Medical History: Irritable Bowel History: No Pertinent History, Renal Disease, Other Pyscho-Social History: Anxiety, Depression Reproductive Disorders: No Pertinent History, Breast Cancer Comment: back surgery, may have to start dialysis, trans aortic valve replacement, CARDIAC STENTS X3 - Female History Are you now?: No - Past Surgical History Past Surgical History: Yes Neuro Surgical History: No Pertinent History Cardiac History: Other Respiratory Surgery: No Pertinent History GI Surgical History: Appendectomy, Bowel Surgery, Cholecystectomy Genitourinary Surgical Hx: No Pertinent History Musculskeletal Surgical Hx: No Pertinent History Female Surgical History: No Pertinent History, Hysterectomy, Section, Tubal Ligation, Lumpectomy Other Surgical History: intestinal bypass and then reverse,sinus surgery times 2 roof/mouth then sinus surgery nose,left foot planters wart,right breast tumor,rt ankle/right leg sx after fx,left breast mastectomy with sentinel removed,6 marek steroid inj,t.a.v.r.-transcatheter aortic value replacement,lumbar laminectomy, steroid injections in back multiple times a year - Social History Smoking Status: Never smoker Exposure to second hand smoke: No Alcohol: None Drug Use: none - Physical Exam Vital Signs: Vital Signs - 24 hr Temp Pulse Resp BP Pulse Ox 03/05/20 07:44 98.3 F 84 20 158/70 94 L 03/05/20 04:00 97.8 F 80 20 148/81 94 L 03/05/20 00:00 97.8 F 95 H 187/71 95 03/04/20 23:45 95 03/04/20 22:00 98.1 F 96 H 20 191/84 95 03/04/20 16:09 83 182/89 96 03/04/20 15:31 84 173/91 95 03/04/20 13:47 98.8 F 89 202/92 95 General Appearance: mild distress, alert, lethargy Neurologic Exam: alert, cooperative, 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 tested, nml station & gait, sensation nml, confusion, No motor deficits Eye Exam: PERRL/EOMI, eyes nml inspection Ears, Nose, Throat Exam: normal ENT inspection, TMs normal, pharynx normal, moist mucous membranes Neck Exam: normal inspection, non-tender, supple, full range of motion Respiratory Exam: normal breath sounds, lungs clear, No respiratory distress Cardiovascular Exam: regular rate/rhythm, normal heart sounds, normal peripheral pulses Gastrointestinal/Abdomen Exam: soft, normal bowel sounds, No tenderness, No mass Back Exam: normal inspection, normal range of motion, No CVA tenderness, No vertebral tenderness Extremity Exam: normal inspection, normal range of motion, pelvis stable Skin Exam: normal color, warm, dry, No rash Lymphatic Exam: No adenopathy Results - Labs Lab/Micro Results: Accuchecks Date 03/05/20 Date 03/04/20 Time 02:30 Time 22:00 Accucheck Value: 211 Accucheck Value: 351 Lab Results-Last 24 Hours 03/04/20 03/04/20 03/04/20 Range/Units 13:00 13:57 14:40 WBC 6.3 (4.0-10.5) K/mm3 RBC 4.38 (4.1-5.4) M/mm3 Hgb 13.8 (12.0-16.0) gm/dl Hct 40.8 (35-47) % MCV 93.2 (78-100) fl MCH 31.5 (26-32) pg MCHC 33.8 (32-36) g/dl RDW 15.0 H (11.5-14.0) % Plt Count 126 L (150-450) K/mm3 MPV 10.3 (7.5-11.0) fl Gran % 65.3 (36.0-66.0) % Eos # (Auto) 0.34 (0-0.5) Absolute Lymphs (auto) 1.27 (1.0-4.6) Absolute Monos (auto) 0.55 (0.0-1.3) Lymphocytes % 20.1 L (24.0-44.0) % Monocytes % 8.7 (0.0-12.0) % Eosinophils % 5.4 H (0.00-5.0) % Basophils % 0.5 (0.0-0.4) % Absolute Granulocytes 4.12 (1.4-6.9) Basophils # 0.03 (0-0.4) Sodium (137-145) mmol/L Potassium (3.5-5.1) mmol/L Chloride (98-107) mmol/L Carbon Dioxide (22-30) mmol/L Anion Gap (5-15) MEQ/L BUN (7-17) mg/dL Creatinine (0.52-1.04) mg/dL Estimated GFR ML/MIN Glucose (74-106) mg/dL Hemoglobin A1c 7.06 H (4.5-6.0) % Lactic Acid 1.3 (0.4-2.0) Calcium (8.4-10.2) mg/dL Magnesium (1.6-2.3) mg/dL Total Bilirubin (0.2-1.3) mg/dL AST (14-36) U/L ALT (0-35) U/L Alkaline Phosphatase (38-126) U/L Troponin I (0.000-0.034) ng/mL Serum Total Protein (6.3-8.2) g/dL Albumin (3.5-5.0) g/dL TSH 3rd Generation (0.47-4.68) mIU/L Urine Color (YELLOW) Urine Appearance (CLEAR) Urine pH (5-6) Ur Specific [place] (1.005-1.025) Urine Protein (Negative) Urine Ketones (NEGATIVE) Urine Blood (0-5) Tulio/ul Urine Nitrite (NEGATIVE) Urine Bilirubin (NEGATIVE) Urine Urobilinogen (0-1) mg/dL Ur Leukocyte Esterase (NEGATIVE) Urine WBC (Auto) (0-5) /HPF Urine RBC (Auto) (0-2) /HPF U Hyaline Cast (Auto) (0-2) /LPF U Epithel Cells (Auto) (FEW) /HPF Urine Bacteria (Auto) (NEGATIVE) /HPF Urine Mucus (Auto) (NEGATIVE) /HPF Urine Culture Reflexed (NO) Urine Glucose (NEGATIVE) mg/dL 03/04/20 03/04/20 03/04/20 Range/Units 14:40 14:40 14:40 WBC (4.0-10.5) K/mm3 RBC (4.1-5.4) M/mm3 Hgb (12.0-16.0) gm/dl Hct (35-47) % MCV (78-100) fl MCH (26-32) pg MCHC (32-36) g/dl RDW (11.5-14.0) % Plt Count (150-450) K/mm3 MPV (7.5-11.0) fl Gran % (36.0-66.0) % Eos # (Auto) (0-0.5) Absolute Lymphs (auto) (1.0-4.6) Absolute Monos (auto) (0.0-1.3) Lymphocytes % (24.0-44.0) % Monocytes % (0.0-12.0) % Eosinophils % (0.00-5.0) % Basophils % (0.0-0.4) % Absolute Granulocytes (1.4-6.9) Basophils # (0-0.4) Sodium 135 L (137-145) mmol/L Potassium 3.9 (3.5-5.1) mmol/L Chloride 101 (98-107) mmol/L Carbon Dioxide 28 (22-30) mmol/L Anion Gap 10.7 (5-15) MEQ/L BUN 18 H (7-17) mg/dL Creatinine 1.33 H (0.52-1.04) mg/dL Estimated GFR 41.9 ML/MIN Glucose 242 H (74-106) mg/dL Hemoglobin A1c (4.5-6.0) % Lactic Acid (0.4-2.0) Calcium 9.3 (8.4-10.2) mg/dL Magnesium 2.0 (1.6-2.3) mg/dL Total Bilirubin 0.50 (0.2-1.3) mg/dL AST 24 (14-36) U/L ALT 18 (0-35) U/L Alkaline Phosphatase 116 (38-126) U/L Troponin I < 0.012 (0.000-0.034) ng/mL Serum Total Protein 6.3 (6.3-8.2) g/dL Albumin 3.9 (3.5-5.0) g/dL TSH 3rd Generation 3.110 (0.47-4.68) mIU/L Urine Color (YELLOW) Urine Appearance (CLEAR) Urine pH (5-6) Ur Specific [place] (1.005-1.025) Urine Protein (Negative) Urine Ketones (NEGATIVE) Urine Blood (0-5) Tulio/ul Urine Nitrite (NEGATIVE) Urine Bilirubin (NEGATIVE) Urine Urobilinogen (0-1) mg/dL Ur Leukocyte Esterase (NEGATIVE) Urine WBC (Auto) (0-5) /HPF Urine RBC (Auto) (0-2) /HPF U Hyaline Cast (Auto) (0-2) /LPF U Epithel Cells (Auto) (FEW) /HPF Urine Bacteria (Auto) (NEGATIVE) /HPF Urine Mucus (Auto) (NEGATIVE) /HPF Urine Culture Reflexed (NO) Urine Glucose (NEGATIVE) mg/dL 03/04/20 03/04/20 03/04/20 Range/Units 17:05 20:10 23:15 WBC (4.0-10.5) K/mm3 RBC (4.1-5.4) M/mm3 Hgb (12.0-16.0) gm/dl Hct (35-47) % MCV (78-100) fl MCH (26-32) pg MCHC (32-36) g/dl RDW (11.5-14.0) % Plt Count (150-450) K/mm3 MPV (7.5-11.0) fl Gran % (36.0-66.0) % Eos # (Auto) (0-0.5) Absolute Lymphs (auto) (1.0-4.6) Absolute Monos (auto) (0.0-1.3) Lymphocytes % (24.0-44.0) % Monocytes % (0.0-12.0) % Eosinophils % (0.00-5.0) % Basophils % (0.0-0.4) % Absolute Granulocytes (1.4-6.9) Basophils # (0-0.4) Sodium (137-145) mmol/L Potassium (3.5-5.1) mmol/L Chloride (98-107) mmol/L Carbon Dioxide (22-30) mmol/L Anion Gap (5-15) MEQ/L BUN (7-17) mg/dL Creatinine (0.52-1.04) mg/dL Estimated GFR ML/MIN Glucose (74-106) mg/dL Hemoglobin A1c (4.5-6.0) % Lactic Acid (0.4-2.0) Calcium (8.4-10.2) mg/dL Magnesium (1.6-2.3) mg/dL Total Bilirubin (0.2-1.3) mg/dL AST (14-36) U/L ALT (0-35) U/L Alkaline Phosphatase (38-126) U/L Troponin I < 0.012 < 0.012 < 0.012 (0.000-0.034) ng/mL Serum Total Protein (6.3-8.2) g/dL Albumin (3.5-5.0) g/dL TSH 3rd Generation (0.47-4.68) mIU/L Urine Color (YELLOW) Urine Appearance (CLEAR) Urine pH (5-6) Ur Specific [place] (1.005-1.025) Urine Protein (Negative) Urine Ketones (NEGATIVE) Urine Blood (0-5) Tulio/ul Urine Nitrite (NEGATIVE) Urine Bilirubin (NEGATIVE) Urine Urobilinogen (0-1) mg/dL Ur Leukocyte Esterase (NEGATIVE) Urine WBC (Auto) (0-5) /HPF Urine RBC (Auto) (0-2) /HPF U Hyaline Cast (Auto) (0-2) /LPF U Epithel Cells (Auto) (FEW) /HPF Urine Bacteria (Auto) (NEGATIVE) /HPF Urine Mucus (Auto) (NEGATIVE) /HPF Urine Culture Reflexed (NO) Urine Glucose (NEGATIVE) mg/dL 03/04/20 03/05/20 03/05/20 Range/Units Unknown 04:30 04:30 WBC 9.5 (4.0-10.5) K/mm3 RBC 3.70 L (4.1-5.4) M/mm3 Hgb 11.7 L (12.0-16.0) gm/dl Hct 34.7 L (35-47) % MCV 93.8 (78-100) fl MCH 31.6 (26-32) pg MCHC 33.7 (32-36) g/dl RDW 14.8 H (11.5-14.0) % Plt Count 184 D (150-450) K/mm3 MPV 10.0 (7.5-11.0) fl Gran % 60.7 (36.0-66.0) % Eos # (Auto) 0.53 H (0-0.5) Absolute Lymphs (auto) 2.26 (1.0-4.6) Absolute Monos (auto) 0.91 (0.0-1.3) Lymphocytes % 23.7 L (24.0-44.0) % Monocytes % 9.5 (0.0-12.0) % Eosinophils % 5.6 H (0.00-5.0) % Basophils % 0.5 (0.0-0.4) % Absolute Granulocytes 5.78 (1.4-6.9) Basophils # 0.05 (0-0.4) Sodium (137-145) mmol/L Potassium (3.5-5.1) mmol/L Chloride (98-107) mmol/L Carbon Dioxide (22-30) mmol/L Anion Gap (5-15) MEQ/L BUN (7-17) mg/dL Creatinine (0.52-1.04) mg/dL Estimated GFR ML/MIN Glucose (74-106) mg/dL Hemoglobin A1c (4.5-6.0) % Lactic Acid (0.4-2.0) Calcium (8.4-10.2) mg/dL Magnesium (1.6-2.3) mg/dL Total Bilirubin (0.2-1.3) mg/dL AST (14-36) U/L ALT (0-35) U/L Alkaline Phosphatase (38-126) U/L Troponin I 0.017 (0.000-0.034) ng/mL Serum Total Protein (6.3-8.2) g/dL Albumin (3.5-5.0) g/dL TSH 3rd Generation (0.47-4.68) mIU/L Urine Color YELLOW (YELLOW) Urine Appearance CLEAR (CLEAR) Urine pH 5.0 (5-6) Ur Specific [place] 1.012 (1.005-1.025) Urine Protein 30 (Negative) Urine Ketones NEGATIVE (NEGATIVE) Urine Blood NEGATIVE (0-5) Tulio/ul Urine Nitrite NEGATIVE (NEGATIVE) Urine Bilirubin NEGATIVE (NEGATIVE) Urine Urobilinogen NEGATIVE (0-1) mg/dL Ur Leukocyte Esterase TRACE (NEGATIVE) Urine WBC (Auto) 6-10 (0-5) /HPF Urine RBC (Auto) 0-2 (0-2) /HPF U Hyaline Cast (Auto) 0-2 (0-2) /LPF U Epithel Cells (Auto) RARE (FEW) /HPF Urine Bacteria (Auto) NONE (NEGATIVE) /HPF Urine Mucus (Auto) SLIGHT (NEGATIVE) /HPF Urine Culture Reflexed YES (NO) Urine Glucose NEGATIVE (NEGATIVE) mg/dL 03/05/20 Range/Units 04:30 WBC (4.0-10.5) K/mm3 RBC (4.1-5.4) M/mm3 Hgb (12.0-16.0) gm/dl Hct (35-47) % MCV (78-100) fl MCH (26-32) pg MCHC (32-36) g/dl RDW (11.5-14.0) % Plt Count (150-450) K/mm3 MPV (7.5-11.0) fl Gran % (36.0-66.0) % Eos # (Auto) (0-0.5) Absolute Lymphs (auto) (1.0-4.6) Absolute Monos (auto) (0.0-1.3) Lymphocytes % (24.0-44.0) % Monocytes % (0.0-12.0) % Eosinophils % (0.00-5.0) % Basophils % (0.0-0.4) % Absolute Granulocytes (1.4-6.9) Basophils # (0-0.4) Sodium 138 (137-145) mmol/L Potassium 3.7 (3.5-5.1) mmol/L Chloride 101 (98-107) mmol/L Carbon Dioxide 28 (22-30) mmol/L Anion Gap 12.4 (5-15) MEQ/L BUN 17 (7-17) mg/dL Creatinine 1.39 H (0.52-1.04) mg/dL Estimated GFR 39.8 ML/MIN Glucose 219 H (74-106) mg/dL Hemoglobin A1c (4.5-6.0) % Lactic Acid (0.4-2.0) Calcium 9.7 (8.4-10.2) mg/dL Magnesium (1.6-2.3) mg/dL Total Bilirubin 0.50 (0.2-1.3) mg/dL AST 24 (14-36) U/L ALT 18 (0-35) U/L Alkaline Phosphatase 116 (38-126) U/L Troponin I (0.000-0.034) ng/mL Serum Total Protein 7.0 (6.3-8.2) g/dL Albumin 4.0 (3.5-5.0) g/dL TSH 3rd Generation (0.47-4.68) mIU/L Urine Color (YELLOW) Urine Appearance (CLEAR) Urine pH (5-6) Ur Specific [place] (1.005-1.025) Urine Protein (Negative) Urine Ketones (NEGATIVE) Urine Blood (0-5) Tulio/ul Urine Nitrite (NEGATIVE) Urine Bilirubin (NEGATIVE) Urine Urobilinogen (0-1) mg/dL Ur Leukocyte Esterase (NEGATIVE) Urine WBC (Auto) (0-5) /HPF Urine RBC (Auto) (0-2) /HPF U Hyaline Cast (Auto) (0-2) /LPF U Epithel Cells (Auto) (FEW) /HPF Urine Bacteria (Auto) (NEGATIVE) /HPF Urine Mucus (Auto) (NEGATIVE) /HPF Urine Culture Reflexed (NO) Urine Glucose (NEGATIVE) mg/dL Accuchecks Date 03/05/20 Date 03/04/20 Time 02:30 Time 22:00 Accucheck Value: 211 Accucheck Value: 351 - Radiology Impressions Radiology Exams & Impressions: Radiology Procedures Category Date Time Status CHEST 1 VIEW (PORTABLE) Stat Exams 03/04/20 13:58 Completed HEAD WITHOUT CONTRAST [CT] Stat Exams 03/04/20 14:[address]/HEAD WITHOUT CONTRAST Indication: Confusion. Multiple contiguous axial images obtained through the head without contrast. Comparison: December 16, 2017. Images through base of brain slightly degraded by motion artifact. Age-appropriate atrophy. No acute intracranial hemorrhage, abnormal extra-axial fluid collection, or mass effect. Fourth ventricle is midline without hydrocephalus. Bony calvarium remains dense and thickened. Visualized paranasal sinuses and mastoid air cells are clear. Impression: 1. Mild motion artifact. 2. No new or acute intracranial abnormalities. 3. Again incidental bony hyperostosis. RAD/CHEST 1 VIEW (PORTABLE) Indication: Confusion. Comparison: October 20, 2019. Portable chest remains markedly underinflated and clear. Heart is not enlarged again with aortic valve replacement. Bony thorax intact again with mild osteopenia and degenerative changes. Impression: Continuing nonacute underinflated chest with chronic features. Assessment/Plan (1) Acute UTI (urinary tract infection) Current Visit: Yes Status: Acute Assessment & Plan: patient is doing better, Confusion resolved. Code(s): N39.0 - URINARY TRACT INFECTION, SITE NOT SPECIFIED (2) Encephalopathy acute Current Visit: Yes Status: Resolved Code(s): G93.40 - ENCEPHALOPATHY, UNSPECIFIED (3) Chronic kidney disease (CKD) Current Visit: Yes Status: Chronic Qualifiers: Chronic kidney disease stage: stage 3 (moderate) Qualified Code(s): N18.3 - Chronic kidney disease, stage 3 (moderate) Code(s): N18.9 - CHRONIC KIDNEY DISEASE, UNSPECIFIED (4) Acute on chronic kidney failure Current Visit: Yes Status: Acute Qualifiers: Acute renal failure type: unspecified Chronic kidney disease stage: stage 3 (moderate) Qualified Code(s): N17.9 - Acute kidney failure, unspecified; N18.3 - Chronic kidney disease, stage 3 (moderate) Code(s): N17.9 - ACUTE KIDNEY FAILURE, UNSPECIFIED; N18.9 - CHRONIC KIDNEY DISEASE, UNSPECIFIED (5) Diabetes mellitus, insulin dependent (IDDM), controlled Current Visit: Yes Status: Chronic Code(s): [id number] -
[2020-03-05] MEDS ORDERED: Nitrostat 0.4 MG Tablet SL PRN (07:58)
[2020-03-05] MEDS ORDERED: TYLENOL 325 MG PO SCH (08:00)
[2020-03-05] MEDS ORDERED: NON-FORMULARY ITEM (Cholecalciferol (Vitamin D3) [Vitamin D3] 2,000 UNIT) PO SCH (08:00)
[2020-03-05] MEDS ORDERED: INSULIN GLARGINE HUM REC ANLOG 1 UNIT SQ SCH (08:00)
[2020-03-05] MEDS ORDERED: AMARYL 4 MG PO SCH (08:00)
[2020-03-05] MEDS ORDERED: EVOLOCUMAB 140 MG SQ SCH (08:00)
[2020-03-05] MEDS: ULTRAM 50 MG PO SCH (08:00)
[2020-03-05] MEDS ORDERED: MEDICATION INTERVENTION MC SCH ×2 (08:30→08:45)
--- NOTE | 2020-03-05 08:56 | PCM.DS ---
Discharge Summary Date of Admission: 03/04/20 17:21 Admitting Physician: SONIA MARTIN Primary Care Provider: SONIA MARTIN Allergies Allergies hydromorphone [From Dilaudid] Allergy (Severe, Verified 03/04/20 14:13) Difficulty Breathing meclofenamic acid [From Meclomen] Allergy (Severe, Verified 03/04/20 14:13) Skin Irritation morphine Allergy (Severe, Verified 03/04/20 14:13) Difficulty Breathing Sulfa (Sulfonamide Antibiotics) Allergy (Severe, Verified 03/04/20 14:13) Extreme constipation ciprofloxacin [From Cipro] Allergy (Intermediate, Verified 03/04/20 14:13) Itching diphenhydramine [From Benadryl] Allergy (Intermediate, Verified 03/04/20 14:13) Swelling of Tongue and Lips pt unable to take po due to swelling of tongue and lips. Can take IM. fexofenadine [From Annmarie] Allergy (Mild, Verified 03/04/20 14:13) Difficulty Swallowing acetaminophen [From Orrick] Adverse Reaction (Intermediate, Verified 03/04/20 14:13) agitaition and hyperactivity amlodipine Adverse Reaction (Intermediate, Verified 03/04/20 14:13) Swelling of Feet betamethasone [From Celestone] Adverse Reaction (Intermediate, Verified 03/04/20 14:13) elvated blood pressure and blood sugar clonidine [From Catapres] Adverse Reaction (Intermediate, Verified 03/04/20 14:13) Difficulty Breathing clotrimazole [From Lotrimin] Adverse Reaction (Intermediate, Verified 03/04/20 14:13) Skin Irritation colchicine Adverse Reaction (Intermediate, Verified 03/04/20 14:13) Swelling of Joints colesevelam [From WelChol] Adverse Reaction (Intermediate, Verified 03/04/20 14:13) leg pain enalaprilat [From Vasotec] Adverse Reaction (Intermediate, Verified 03/04/20 14:13) severe sinus condition escitalopram [From Lexapro] Adverse Reaction (Intermediate, Verified 03/04/20 14:13) elvated blood sugar fluvastatin [From Lescol] Adverse Reaction (Intermediate, Verified 03/04/20 14:13) leg pain hydralazine Adverse Reaction (Intermediate, Verified 03/04/20 14:13) dizziness and balance issues hydrocodone [From Orrick] Adverse Reaction (Intermediate, Verified 03/04/20 14:13) agitaition and hyperactivity lidocaine [From Lidoderm] Adverse Reaction (Intermediate, Verified 03/04/20 14:13) Nausea and Vomiting metformin Adverse Reaction (Intermediate, Verified 03/04/20 14:13) Diarrhea metronidazole Adverse Reaction (Intermediate, Verified 03/04/20 14:13) Diarrhea oxycodone [From OxyContin] Adverse Reaction (Intermediate, Verified 03/04/20 14:13) Difficulty Breathing pilocarpine [From Salagen (pilocarpine)] Adverse Reaction (Intermediate, Verified 03/04/20 14:13) Vomiting rosuvastatin [From Crestor] Adverse Reaction (Intermediate, Verified 03/04/20 14:13) leg cramps terbinafine [From Lamisil] Adverse Reaction (Intermediate, Verified 03/04/20 14:13) Skin Irritation bupropion [From Wellbutrin] Adverse Reaction (Mild, Verified 03/04/20 14:13) agitation and hyperactivity cholecalciferol (vitamin D3) [From Vitamin D3] Adverse Reaction (Mild, Verified 03/04/20 14:13) burning of tongue and cracked sore lips ezetimibe [From Vytorin] Adverse Reaction (Mild, Verified 03/04/20 14:13) leg cramps lamotrigine [From Lamictal] Adverse Reaction (Mild, Verified 03/04/20 14:13) Stomach Pain lithium Adverse Reaction (Mild, Verified 03/04/20 14:13) Diarrhea simvastatin [From Vytorin] Adverse Reaction (Mild, Verified 03/04/20 14:13) leg cramps ziprasidone [From Geodon] Adverse Reaction (Mild, Verified 03/04/20 14:13) Swelling of Feet buspirone Adverse Reaction (Verified 03/04/20 14:13) Hospital Summary - Hospital Course Hospital Course: Chief Complaint Diagnosis confusion for 1-2 days Allergies Allergy/AdvReac Type Severity Reaction Status Date / Time hydromorphone [From Dilaudid] Allergy Severe Difficulty Verified 03/04/20 14:13 Breathing meclofenamic acid Allergy Severe Skin Verified 03/04/20 14:13 [From Meclomen] Irritation morphine Allergy Severe Difficulty Verified 03/04/20 14:13 Breathing Sulfa (Sulfonamide Allergy Severe Verified 03/04/20 14:13 Antibiotics) ciprofloxacin [From Cipro] Allergy Intermediate Itching Verified 03/04/20 14:13 diphenhydramine Allergy Intermediate Swelling Verified 03/04/20 14:13 [From Benadryl] of Tongue and Lips fexofenadine [From Annmarie] Allergy Mild Difficulty Verified 03/04/20 14:13 Swallowing acetaminophen [From Orrick] AdvReac Intermediate Verified 03/04/20 14:13 amlodipine AdvReac Intermediate Swelling Verified 03/04/20 14:13 of Feet betamethasone AdvReac Intermediate Verified 03/04/20 14:13 [From Celestone] clonidine [From Catapres] AdvReac Intermediate Difficulty Verified 03/04/20 14:13 Breathing clotrimazole [From Lotrimin] AdvReac Intermediate Skin Verified 03/04/20 14:13 Irritation colchicine AdvReac Intermediate Swelling Verified 03/04/20 14:13 of Joints colesevelam [From WelChol] AdvReac Intermediate Verified 03/04/20 14:13 enalaprilat [From Vasotec] AdvReac Intermediate Verified 03/04/20 14:13 escitalopram [From Lexapro] AdvReac Intermediate Verified 03/04/20 14:13 fluvastatin [From Lescol] AdvReac Intermediate Verified 03/04/20 14:13 hydralazine AdvReac Intermediate Verified 03/04/20 14:13 hydrocodone [From Orrick] AdvReac Intermediate Verified 03/04/20 14:13 lidocaine [From Lidoderm] AdvReac Intermediate Nausea and Verified 03/04/20 14:13 Vomiting metformin AdvReac Intermediate Diarrhea Verified 03/04/20 14:13 metronidazole AdvReac Intermediate Diarrhea Verified 03/04/20 14:13 oxycodone [From OxyContin] AdvReac Intermediate Difficulty Verified 03/04/20 14:13 Breathing pilocarpine AdvReac Intermediate Vomiting Verified 03/04/20 14:13 [From Salagen (pilocarpine)] rosuvastatin [From Crestor] AdvReac Intermediate Verified 03/04/20 14:13 terbinafine [From Lamisil] AdvReac Intermediate Skin Verified 03/04/20 14:13 Irritation bupropion [From Wellbutrin] AdvReac Mild Verified 03/04/20 14:13 cholecalciferol (vitamin D3) AdvReac Mild Verified 03/04/20 14:13 [From Vitamin D3] ezetimibe [From Vytorin] AdvReac Mild Verified 03/04/20 14:13 lamotrigine [From Lamictal] AdvReac Mild Stomach Verified 03/04/20 14:13 Pain lithium AdvReac Mild Diarrhea Verified 03/04/20 14:13 simvastatin [From Vytorin] AdvReac Mild Verified 03/04/20 14:13 ziprasidone [From Geodon] AdvReac Mild Swelling Verified 03/04/20 14:13 of Feet buspirone AdvReac Verified 03/04/20 14:13 Vital Signs (Last 24 hours) Temp Pulse Resp BP Pulse Ox 03/05/20 07:44 98.3 F 84 20 158/70 94 L 03/05/20 04:00 97.8 F 80 20 148/81 94 L 03/05/20 00:00 97.8 F 95 H 187/71 95 03/04/20 23:45 95 03/04/20 22:00 98.1 F 96 H 20 191/84 95 03/04/20 16:09 83 182/89 96 03/04/20 15:31 84 173/91 95 03/04/20 13:47 98.8 F 89 202/92 95 Home Medications Medication Instructions Recorded Confirmed Last Taken Type Evolocumab [Keniaa Sera] 140 mg SQ UD 03/04/20 03/05/20 03/04/20 History Insulin Glargine,Hum.rec.anlog 1 unit SQ UD 03/04/20 03/05/20 03/04/20 History [Supa Paredes U-100] Cyanocobalamin (Vitamin B-12) 1,000 mcg PO DAILY 03/05/20 03/05/20 Unknown History [B-12] Current Medications Generic Name Dose Route Start Last Admin Trade Name Freq PRN Reason Stop Dose Admin Acetaminophen 650 mg 03/05/20 08:00 03/05/20 07:59 Tylenol 325 Mg PO 04/04/20 07:59 650 mg Q6HT CESAR Administration Allopurinol 300 mg 03/04/20 22:00 03/04/20 22:00 Zyloprim 300 Mg PO 04/03/20 21:59 300 mg HS CESAR Administration Amlodipine Besylate 10 mg 03/05/20 10:00 Norvasc 5 Mg PO 04/04/20 09:59 DAILY CESAR Aspirin 81 mg 03/04/20 22:00 03/04/20 22:00 Ecotrin 81 Mg PO 04/03/20 21:59 81 mg HS CESAR Administration Bumetanide 2 mg 03/05/20 10:00 Bumex 1 Mg PO 04/04/20 09:59 DAILY [facility] Cholecalciferol 2,000 unit 03/06/20 10:00 Vitamin D PO 04/05/20 09:59 MoWeFr [facility] Clopidogrel Bisulfate 75 mg 03/05/20 10:00 Plavix 75 Mg Tablet PO 04/04/20 09:59 DAILY [facility] Cyanocobalamin 1,000 mcg 03/05/20 10:00 Vitamin B-12 500 Mcg PO 04/04/20 09:59 DAILY [facility] Duloxetine HCl 60 mg 03/05/20 10:00 Cymbalta 30 Mg Capsule PO 04/04/20 09:59 DAILY [facility] Famotidine 20 mg 03/04/20 22:00 03/04/20 22:02 Pepcid 20 Mg Vial IV 04/03/20 21:59 20 mg Q12HT CESAR Administration Gabapentin 1,800 mg 03/05/20 10:00 Neurontin 300 Mg PO 04/04/20 09:59 DAILY [facility] Glimepiride 4 mg 03/05/20 08:00 03/05/20 08:33 Amaryl 4 Mg PO 04/04/20 07:59 4 mg BREAKFAST [facility] Administration Ceftriaxone Sodium/Dextrose 1 g in 50 mls @ 100 mls/hr 03/05/20 10:00 Rocephin 1 Gm-D5w 50 Ml Bag IV 04/04/20 09:59 Q24H10 [facility] Insulin Human Lispro 0 unit 03/04/20 17:54 03/05/20 08:03 Humalog SQ 04/03/20 17:53 7 unit UD PRN Administration HYPERGLYCEMIA Isosorbide Mononitrate 30 mg 03/05/20 10:00 Imdur 30 Mg PO 04/04/20 09:59 DAILY CESAR Loratadine 10 mg 03/04/20 22:00 03/04/20 22:00 Claritin 10 Mg PO 04/03/20 21:59 10 mg HS CESAR Administration Losartan Potassium 25 mg 03/05/20 10:00 Cozaar 50 Mg PO 04/04/20 09:59 DAILY CESAR Metoprolol Succinate 50 mg 03/04/20 23:13 03/04/20 22:05 Toprol Xl 50 Mg PO 04/03/20 21:59 50 mg HS CESAR Administration Miscellaneous Information 1 each 03/05/20 08:30 Medication Intervention 04/04/20 08:29 .RN TO CLARIFY CESAR Miscellaneous Information 1 each 03/05/20 08:45 Medication Intervention 04/04/20 08:44 .RN TO CHECK ON [facility] Multivitamins Therapeutic 1 tab 03/05/20 10:00 Theragran Multivitamin PO 04/04/20 09:59 DAILY [facility] Nitroglycerin 0.4 mg 03/05/20 07:58 Nitrostat 0.4 Mg Tablet SL 04/04/20 07:57 Q5MIN PRN MR X 3 PRN PAIN Olanzapine 7.5 mg 03/05/20 10:00 Zyprexa 5mg Tablet PO 04/04/20 09:59 DAILY [facility] Ondansetron HCl 4 mg 03/04/20 17:54 Zofran 4 Mg/2 Ml Vial IV 04/03/20 17:53 Q6H PRN PRN NAUSEA/VOMITING Potassium Chloride 50 meq 03/05/20 10:00 Klor Con 10 Meq PO 04/04/20 09:59 DAILY CESAR Tramadol HCl 75 mg 03/04/20 22:00 03/05/20 08:00 Ultram 50 Mg PO 04/03/20 21:59 75 mg Q8H CESAR Administration Trazodone HCl 100 mg 03/04/20 22:00 03/04/20 22:01 Desyrel 50 Mg PO 04/03/20 21:59 100 mg HS CESAR Administration Discontinued Medications Generic Name Dose Route Start Last Admin Trade Name Freq PRN Reason Stop Dose Admin Acetaminophen 650 mg 03/04/20 17:54 Tylenol 325 Mg PO 04/03/20 17:53 Q4H PRN PRN PAIN AND/OR FEVER Albuterol/Ipratropium 3 ml 03/04/20 17:54 Duoneb 0.5-3 Mg/3 Ml Neb IH 04/03/20 17:53 Q4HPRN PRN SHORTNESS OF BREATH/WHEEZING Ceftriaxone Sodium/Dextrose 1 g in 50 mls @ 100 mls/hr 03/04/20 15:54 03/04/20 16:34 Rocephin 1 Gm-D5w 50 Ml Bag IV 03/04/20 16:23 Infused STAT STA Infusion Ceftriaxone Sodium/Dextrose Confirm 03/04/20 15:59 Rocephin 1 Gm-D5w 50 Ml Bag Administered 03/04/20 16:00 Dose 1 g in 50 mls @ ud IV .STK-MED ONE Insulin Human Lispro Confirm 03/04/20 21:51 Humalog Administered 03/04/20 21:52 Dose 11 unit .ROUTE .STK-MED ONE Metoprolol Succinate 50 mg 03/04/20 22:00 03/04/20 23:16 Toprol-Xl 25mg Tablets PO 04/03/20 21:59 Not Given HS CESAR Metoprolol Succinate Confirm 03/04/20 21:36 Toprol Xl 50 Mg Administered 03/04/20 21:37 Dose 50 mg PO .STK-MED ONE Metoprolol Succinate 50 mg 03/05/20 22:00 Toprol Xl 50 Mg PO 04/04/20 21:59 HS CESAR Intake & Output (Last 24 hours) 03/02/20 03/03/20 03/04/20 03/05/20 11:59 11:59 11:59 11:59 Intake Total 990 Output Total 1300 Balance -310 Weight 114.4 kg Microbiology Results (Last 24 hours) 03/04/20 Unknown Urine, Void Urine Culture - Pending 03/04/20 14:45 Blood Blood Culture Gram Stain - Pending 03/04/20 14:45 Blood Blood Culture - Pending 03/04/20 14:40 Blood Blood Culture Gram Stain - Pending 03/04/20 14:40 Blood Blood Culture - Pending Laboratory Results (Last 24 hours) 03/05/20 03/05/20 03/05/20 04:30 04:30 04:30 WBC 9.5 RBC 3.70 L Hgb 11.7 L Hct 34.7 L MCV 93.8 MCH 31.6 MCHC 33.7 RDW 14.8 H Plt Count 184 D MPV 10.0 Gran % 60.7 Eos # (Auto) 0.53 H Absolute Lymphs (auto) 2.26 Absolute Monos (auto) 0.91 Lymphocytes % 23.7 L Monocytes % 9.5 Eosinophils % 5.6 H Basophils % 0.5 Absolute Granulocytes 5.78 Basophils # 0.05 Sodium 138 Potassium 3.7 Chloride 101 Carbon Dioxide 28 Anion Gap 12.4 BUN 17 Creatinine 1.39 H Estimated GFR 39.8 Glucose 219 H Hemoglobin A1c Lactic Acid Calcium 9.7 Magnesium Total Bilirubin 0.50 AST 24 ALT 18 Alkaline Phosphatase 116 Troponin I 0.017 Serum Total Protein 7.0 Albumin 4.0 TSH 3rd Generation Urine Color Urine Appearance Urine pH Ur Specific [place] Urine Protein Urine Ketones Urine Blood Urine Nitrite Urine Bilirubin Urine Urobilinogen Ur Leukocyte Esterase Urine WBC (Auto) Urine RBC (Auto) U Hyaline Cast (Auto) U Epithel Cells (Auto) Urine Bacteria (Auto) Urine Mucus (Auto) Urine Culture Reflexed Urine Glucose 03/04/20 03/04/20 03/04/20 Unknown 23:15 20:10 WBC RBC Hgb Hct MCV MCH MCHC RDW Plt Count MPV Gran % Eos # (Auto) Absolute Lymphs (auto) Absolute Monos (auto) Lymphocytes % Monocytes % Eosinophils % Basophils % Absolute Granulocytes Basophils # Sodium Potassium Chloride Carbon Dioxide Anion Gap BUN Creatinine Estimated GFR Glucose Hemoglobin A1c Lactic Acid Calcium Magnesium Total Bilirubin AST ALT Alkaline Phosphatase Troponin I < 0.012 < 0.012 Serum Total Protein Albumin TSH 3rd Generation Urine Color YELLOW Urine Appearance CLEAR Urine pH 5.0 Ur Specific [place] 1.012 Urine Protein 30 Urine Ketones NEGATIVE Urine Blood NEGATIVE Urine Nitrite NEGATIVE Urine Bilirubin NEGATIVE Urine Urobilinogen NEGATIVE Ur Leukocyte Esterase TRACE Urine WBC (Auto) 6-10 Urine RBC (Auto) 0-2 U Hyaline Cast (Auto) 0-2 U Epithel Cells (Auto) RARE Urine Bacteria (Auto) NONE Urine Mucus (Auto) SLIGHT Urine Culture Reflexed YES Urine Glucose NEGATIVE 03/04/20 03/04/20 03/04/20 17:05 14:40 14:40 WBC RBC Hgb Hct MCV MCH MCHC RDW Plt Count MPV Gran % Eos # (Auto) Absolute Lymphs (auto) Absolute Monos (auto) Lymphocytes % Monocytes % Eosinophils % Basophils % Absolute Granulocytes Basophils # Sodium Potassium Chloride Carbon Dioxide Anion Gap BUN Creatinine Estimated GFR Glucose Hemoglobin A1c Lactic Acid Calcium Magnesium 2.0 Total Bilirubin AST ALT Alkaline Phosphatase Troponin I < 0.012 < 0.012 Serum Total Protein Albumin TSH 3rd Generation 3.110 Urine Color Urine Appearance Urine pH Ur Specific [place] Urine Protein Urine Ketones Urine Blood Urine Nitrite Urine Bilirubin Urine Urobilinogen Ur Leukocyte Esterase Urine WBC (Auto) Urine RBC (Auto) U Hyaline Cast (Auto) U Epithel Cells (Auto) Urine Bacteria (Auto) Urine Mucus (Auto) Urine Culture Reflexed Urine Glucose 03/04/20 03/04/20 03/04/20 14:40 14:40 13:57 WBC 6.3 RBC 4.38 Hgb 13.8 Hct 40.8 MCV 93.2 MCH 31.5 MCHC 33.8 RDW 15.0 H Plt Count 126 L MPV 10.3 Gran % 65.3 Eos # (Auto) 0.34 Absolute Lymphs (auto) 1.27 Absolute Monos (auto) 0.55 Lymphocytes % 20.1 L Monocytes % 8.7 Eosinophils % 5.4 H Basophils % 0.5 Absolute Granulocytes 4.12 Basophils # 0.03 Sodium 135 L Potassium 3.9 Chloride 101 Carbon Dioxide 28 Anion Gap 10.7 BUN 18 H Creatinine 1.33 H Estimated GFR 41.9 Glucose 242 H Hemoglobin A1c Lactic Acid 1.3 Calcium 9.3 Magnesium Total Bilirubin 0.50 AST 24 ALT 18 Alkaline Phosphatase 116 Troponin I Serum Total Protein 6.3 Albumin 3.9 TSH 3rd Generation Urine Color Urine Appearance Urine pH Ur Specific [place] Urine Protein Urine Ketones Urine Blood Urine Nitrite Urine Bilirubin Urine Urobilinogen Ur Leukocyte Esterase Urine WBC (Auto) Urine RBC (Auto) U Hyaline Cast (Auto) U Epithel Cells (Auto) Urine Bacteria (Auto) Urine Mucus (Auto) Urine Culture Reflexed Urine Glucose 03/04/20 13:00 WBC RBC Hgb Hct MCV MCH MCHC RDW Plt Count MPV Gran % Eos # (Auto) Absolute Lymphs (auto) Absolute Monos (auto) Lymphocytes % Monocytes % Eosinophils % Basophils % Absolute Granulocytes Basophils # Sodium Potassium Chloride Carbon Dioxide Anion Gap BUN Creatinine Estimated GFR Glucose Hemoglobin A1c 7.06 H Lactic Acid Calcium Magnesium Total Bilirubin AST ALT Alkaline Phosphatase Troponin I Serum Total Protein Albumin TSH 3rd Generation Urine Color Urine Appearance Urine pH Ur Specific [place] Urine Protein Urine Ketones Urine Blood Urine Nitrite Urine Bilirubin Urine Urobilinogen Ur Leukocyte Esterase Urine WBC (Auto) Urine RBC (Auto) U Hyaline Cast (Auto) U Epithel Cells (Auto) Urine Bacteria (Auto) Urine Mucus (Auto) Urine Culture Reflexed Urine Glucose Orders (Last 24 hours) Category Date Time Status Bedrest ROUTINE Activity 03/04/20 17:54 Active Bedrest with BRP/BSC ROUTINE Activity 03/04/20 17:54 Active Up With Assistance ROUTINE Activity 03/04/20 17:54 Active Accucheck Q4H Care 03/04/20 17:54 Active Code Status Order ROUTINE Care 03/04/20 17:54 Active EKG-ER Only STAT Care 03/04/20 13:57 Completed IV Care Q6H Care 03/04/20 17:54 Active IV Insertion STAT Care 03/04/20 13:[address] in Observation ROUTINE Care 03/04/20 17:54 Active Guillermo Jason, Robin ROUTINE Care 03/04/20 17:54 Active Weight,Daily 0600 Care 03/04/20 17:54 Active Consistent Carbohydrate Diet 1800 Calorie Diet 03/04/20 Dinner Active CHEST 1 VIEW (PORTABLE) Stat Exams 03/04/20 13:58 Completed HEAD WITHOUT CONTRAST [CT] Stat Exams 03/04/20 14:02 Completed BLOOD CULTURE Stat Lab 03/04/20 14:45 Received CBC W DIFF AM.LAB Lab 03/05/20 04:30 Completed CBC W DIFF Stat Lab 03/04/20 14:40 Completed CMP AM.LAB Lab 03/05/20 04:30 Completed CMP Stat Lab 03/04/20 14:40 Completed HEMOGLOBIN A1C Urgent Lab 03/04/20 13:00 Completed Lactic Acid Stat Lab 03/04/20 13:57 Completed MAG [MAGNESIUM] Stat Lab 03/04/20 14:40 Completed TROPONIN Q3H Lab 03/04/20 14:40 Completed TROPONIN Q3H Lab 03/04/20 17:05 Completed TROPONIN Q3H Lab 03/04/20 20:10 Completed TROPONIN Q3H Lab 03/04/20 23:15 Completed TROPONIN Q3H Lab 03/05/20 04:30 Completed TSH [TSH, 3RD Generation] Stat Lab 03/04/20 14:40 Completed Acetaminophen 325 mg [Tylenol 325 mg] Med 03/04/20 17:54 Discontinued 650 mg PO Q4H PRN PRN Acetaminophen 325 mg [Tylenol 325 mg] Med 03/05/20 08:00 Active 650 mg PO Q6HT Albuterol/Ipratropium 3ml Neb* [DUONEB 0.5-3 MG/3 ml Med 03/04/20 17:54 Discontinued Neb] 3 ml IH Q4HPRN PRN Allopurinol 300 mg [Zyloprim 300 mg] Med 03/04/20 22:00 Active 300 mg PO HS Amlodipine Besylate 5 mg [Norvasc 5 mg] Med 03/05/20 10:00 Active 10 mg PO DAILY Aspirin EC 81 mg [Ecotrin 81 mg] Med 03/04/20 22:00 Active 81 mg PO HS Bumetanide 1 mg [Bumex 1 mg] Med 03/05/20 10:00 Active 2 mg PO DAILY Ceftriaxone 1 GM/50 ML PREMIX* [ROCEPHIN 1 Gm-D5w 50 ml Med 03/05/20 10:00 Active Bag] 1 g in 50 ml IV Q24H10 Ceftriaxone 1 GM/50 ML PREMIX* [ROCEPHIN 1 Gm-D5w 50 ml Med 03/04/20 15:54 Discontinued Bag] 1 g in 50 ml IV STAT Ceftriaxone 1 GM/50 ML PREMIX* [ROCEPHIN 1 Gm-D5w 50 ml Med 03/04/20 15:59 Discontinued Bag] 1 g in 50 ml IV UD Cholecalciferol (Vitamin D3) [Vitamin D] Med 03/06/20 10:00 Active 2,000 unit PO MoWeFr Clopidogrel Bisulfate 75 mg [PLAVIX 75 MG Tablet] Med 03/05/20 10:00 Active 75 mg PO DAILY Cyanocobalamin 500 Mcg [Vitamin B-12 500 MCG] Med 03/05/20 10:00 Active 1,000 mcg PO DAILY Duloxetine HCl 30 mg [Cymbalta 30 MG Capsule] Med 03/05/20 10:00 Active 60 mg PO DAILY Famotidine 20 mg Vial [Pepcid 20 MG VIAL] Med 03/04/20 22:00 Active 20 mg IV Q12HT Gabapentin 300 mg [Neurontin 300 mg] Med 03/05/20 10:00 Active 1,800 mg PO DAILY Glimepiride 4 mg [Amaryl 4 mg] Med 03/05/20 08:00 Active 4 mg PO BREAKFAST Insulin Lispro [Humalog] Med 03/04/20 21:51 Discontinued 11 unit .ROUTE .STK-MED ONE Insulin Lispro [Humalog] Med 03/04/20 17:54 Active See Dose Instructions SQ UD PRN Isosorbide Mononitrate 30 mg [Imdur 30 MG] Med 03/05/20 10:00 Active 30 mg PO DAILY Loratadine 10 mg [Claritin 10 mg] Med 03/04/20 22:00 Active 10 mg PO HS Losartan Potassium 50 mg [Cozaar 50 MG] Med 03/05/20 10:00 Active 25 mg PO DAILY Medication Intervention Med 03/05/20 08:45 Active 1 each MC .RN TO CHECK ON Medication Intervention Med 03/05/20 08:30 Active 1 each MC .RN TO CLARIFY Metoprolol Succinate 25 mg Xl* [Toprol-Xl 25MG Tablets* Med 03/04/20 22:00 Discontinued ] 50 mg PO HS Metoprolol Succinate 50 mg [Toprol Xl 50 MG] Med 03/04/20 21:36 Discontinued 50 mg PO .STK-MED ONE Metoprolol Succinate 50 mg [Toprol Xl 50 MG] Med 03/04/20 23:13 Active 50 mg PO HS Metoprolol Succinate 50 mg [Toprol Xl 50 MG] Med 03/05/20 22:00 Discontinued 50 mg PO HS Multivitamins,Therapeutic Tab* [Theragran Multivitamin* Med 03/05/20 10:00 Active ] 1 tab PO DAILY Nitroglycerin 0.4 mg Tablet [Nitrostat 0.4 MG Tablet Med 03/05/20 07:58 Active ] 0.4 mg SL Q5MIN PRN MR X 3 PRN Olanzapine 5 mg [zyPREXA 5MG TABLET] Med 03/05/20 10:00 Active 7.5 mg PO DAILY Ondansetron HCl 4 mg/2 ml [Zofran 4 MG/2 ML VIAL] Med 03/04/20 17:54 Active 4 mg IV Q6H PRN PRN Potassium Chloride 10 Meq Tab* [Klor Con 10 MEQ] Med 03/05/20 10:00 Active 50 meq PO DAILY Tramadol HCl 50 mg [Ultram 50 mg] Med 03/04/20 22:00 Active 75 mg PO Q8H Trazodone HCl 50 mg [Desyrel 50 mg] Med 03/04/20 22:00 Active 100 mg PO HS Patient Care Notes (Last 24 hours) 03/04/20 21:30 (created 03/05/20 01:37) Nursing Note by Joseline Ornelas DR NOTIFIED REGARDING PT HOME MEDS, GAVE ORDER TO CONTINUE ALL HOME MEDS Initialized on 03/05/20 01:37 - END OF NOTE - Vitals & Intake/Output Vital Signs: Vital Signs Temperature 98.3 F 03/05/20 07:44 Pulse Rate 84 03/05/20 07:44 Respiratory Rate 20 03/05/20 07:44 Blood Pressure 158/70 03/05/20 07:44 O2 Sat by Pulse Oximetry 94 L 03/05/20 07:44 Intake & Output: Intake & Output 03/02/20 03/03/20 03/04/20 03/05/20 11:59 11:59 11:59 11:59 Intake Total 990 Output Total 1300 Balance -310 Weight 114.4 kg - Lab Result Diagrams: 03/05/20 04:30 03/05/20 04:30 Lab Results-Last 24 Hrs: Accuchecks Date 03/05/20 Date 03/04/20 Time 02:30 Time 22:00 Accucheck Value: 251 Accucheck Value: 211 Accucheck Value: 351 Lab Results-Last 24 Hours 03/04/20 03/04/20 03/04/20 Range/Units 13:00 13:57 14:40 WBC 6.3 (4.0-10.5) K/mm3 RBC 4.38 (4.1-5.4) M/mm3 Hgb 13.8 (12.0-16.0) gm/dl Hct 40.8 (35-47) % MCV 93.2 (78-100) fl MCH 31.5 (26-32) pg MCHC 33.8 (32-36) g/dl RDW 15.0 H (11.5-14.0) % Plt Count 126 L (150-450) K/mm3 MPV 10.3 (7.5-11.0) fl Gran % 65.3 (36.0-66.0) % Eos # (Auto) 0.34 (0-0.5) Absolute Lymphs (auto) 1.27 (1.0-4.6) Absolute Monos (auto) 0.55 (0.0-1.3) Lymphocytes % 20.1 L (24.0-44.0) % Monocytes % 8.7 (0.0-12.0) % Eosinophils % 5.4 H (0.00-5.0) % Basophils % 0.5 (0.0-0.4) % Absolute Granulocytes 4.12 (1.4-6.9) Basophils # 0.03 (0-0.4) Sodium (137-145) mmol/L Potassium (3.5-5.1) mmol/L Chloride (98-107) mmol/L Carbon Dioxide (22-30) mmol/L Anion Gap (5-15) MEQ/L BUN (7-17) mg/dL Creatinine (0.52-1.04) mg/dL Estimated GFR ML/MIN Glucose (74-106) mg/dL Hemoglobin A1c 7.06 H (4.5-6.0) % Lactic Acid 1.3 (0.4-2.0) Calcium (8.4-10.2) mg/dL Magnesium (1.6-2.3) mg/dL Total Bilirubin (0.2-1.3) mg/dL AST (14-36) U/L ALT (0-35) U/L Alkaline Phosphatase (38-126) U/L Troponin I (0.000-0.034) ng/mL Serum Total Protein (6.3-8.2) g/dL Albumin (3.5-5.0) g/dL TSH 3rd Generation (0.47-4.68) mIU/L Urine Color (YELLOW) Urine Appearance (CLEAR) Urine pH (5-6) Ur Specific [place] (1.005-1.025) Urine Protein (Negative) Urine Ketones (NEGATIVE) Urine Blood (0-5) Tulio/ul Urine Nitrite (NEGATIVE) Urine Bilirubin (NEGATIVE) Urine Urobilinogen (0-1) mg/dL Ur Leukocyte Esterase (NEGATIVE) Urine WBC (Auto) (0-5) /HPF Urine RBC (Auto) (0-2) /HPF U Hyaline Cast (Auto) (0-2) /LPF U Epithel Cells (Auto) (FEW) /HPF Urine Bacteria (Auto) (NEGATIVE) /HPF Urine Mucus (Auto) (NEGATIVE) /HPF Urine Culture Reflexed (NO) Urine Glucose (NEGATIVE) mg/dL 03/04/20 03/04/20 03/04/20 Range/Units 14:40 14:40 14:40 WBC (4.0-10.5) K/mm3 RBC (4.1-5.4) M/mm3 Hgb (12.0-16.0) gm/dl Hct (35-47) % MCV (78-100) fl MCH (26-32) pg MCHC (32-36) g/dl RDW (11.5-14.0) % Plt Count (150-450) K/mm3 MPV (7.5-11.0) fl Gran % (36.0-66.0) % Eos # (Auto) (0-0.5) Absolute Lymphs (auto) (1.0-4.6) Absolute Monos (auto) (0.0-1.3) Lymphocytes % (24.0-44.0) % Monocytes % (0.0-12.0) % Eosinophils % (0.00-5.0) % Basophils % (0.0-0.4) % Absolute Granulocytes (1.4-6.9) Basophils # (0-0.4) Sodium 135 L (137-145) mmol/L Potassium 3.9 (3.5-5.1) mmol/L Chloride 101 (98-107) mmol/L Carbon Dioxide 28 (22-30) mmol/L Anion Gap 10.7 (5-15) MEQ/L BUN 18 H (7-17) mg/dL Creatinine 1.33 H (0.52-1.04) mg/dL Estimated GFR 41.9 ML/MIN Glucose 242 H (74-106) mg/dL Hemoglobin A1c (4.5-6.0) % Lactic Acid (0.4-2.0) Calcium 9.3 (8.4-10.2) mg/dL Magnesium 2.0 (1.6-2.3) mg/dL Total Bilirubin 0.50 (0.2-1.3) mg/dL AST 24 (14-36) U/L ALT 18 (0-35) U/L Alkaline Phosphatase 116 (38-126) U/L Troponin I < 0.012 (0.000-0.034) ng/mL Serum Total Protein 6.3 (6.3-8.2) g/dL Albumin 3.9 (3.5-5.0) g/dL TSH 3rd Generation 3.110 (0.47-4.68) mIU/L Urine Color (YELLOW) Urine Appearance (CLEAR) Urine pH (5-6) Ur Specific Atlantic (1.005-1.025) Urine Protein (Negative) Urine Ketones (NEGATIVE) Urine Blood (0-5) Tulio/ul Urine Nitrite (NEGATIVE) Urine Bilirubin (NEGATIVE) Urine Urobilinogen (0-1) mg/dL Ur Leukocyte Esterase (NEGATIVE) Urine WBC (Auto) (0-5) /HPF Urine RBC (Auto) (0-2) /HPF U Hyaline Cast (Auto) (0-2) /LPF U Epithel Cells (Auto) (FEW) /HPF Urine Bacteria (Auto) (NEGATIVE) /HPF Urine Mucus (Auto) (NEGATIVE) /HPF Urine Culture Reflexed (NO) Urine Glucose (NEGATIVE) mg/dL 03/04/20 03/04/20 03/04/20 Range/Units 17:05 20:10 23:15 WBC (4.0-10.5) K/mm3 RBC (4.1-5.4) M/mm3 Hgb (12.0-16.0) gm/dl Hct (35-47) % MCV (78-100) fl MCH (26-32) pg MCHC (32-36) g/dl RDW (11.5-14.0) % Plt Count (150-450) K/mm3 MPV (7.5-11.0) fl Gran % (36.0-66.0) % Eos # (Auto) (0-0.5) Absolute Lymphs (auto) (1.0-4.6) Absolute Monos (auto) (0.0-1.3) Lymphocytes % (24.0-44.0) % Monocytes % (0.0-12.0) % Eosinophils % (0.00-5.0) % Basophils % (0.0-0.4) % Absolute Granulocytes (1.4-6.9) Basophils # (0-0.4) Sodium (137-145) mmol/L Potassium (3.5-5.1) mmol/L Chloride (98-107) mmol/L Carbon Dioxide (22-30) mmol/L Anion Gap (5-15) MEQ/L BUN (7-17) mg/dL Creatinine (0.52-1.04) mg/dL Estimated GFR ML/MIN Glucose (74-106) mg/dL Hemoglobin A1c (4.5-6.0) % Lactic Acid (0.4-2.0) Calcium (8.4-10.2) mg/dL Magnesium (1.6-2.3) mg/dL Total Bilirubin (0.2-1.3) mg/dL AST (14-36) U/L ALT (0-35) U/L Alkaline Phosphatase (38-126) U/L Troponin I < 0.012 < 0.012 < 0.012 (0.000-0.034) ng/mL Serum Total Protein (6.3-8.2) g/dL Albumin (3.5-5.0) g/dL TSH 3rd Generation (0.47-4.68) mIU/L Urine Color (YELLOW) Urine Appearance (CLEAR) Urine pH (5-6) Ur Specific Atlantic (1.005-1.025) Urine Protein (Negative) Urine Ketones (NEGATIVE) Urine Blood (0-5) Tulio/ul Urine Nitrite (NEGATIVE) Urine Bilirubin (NEGATIVE) Urine Urobilinogen (0-1) mg/dL Ur Leukocyte Esterase (NEGATIVE) Urine WBC (Auto) (0-5) /HPF Urine RBC (Auto) (0-2) /HPF U Hyaline Cast (Auto) (0-2) /LPF U Epithel Cells (Auto) (FEW) /HPF Urine Bacteria (Auto) (NEGATIVE) /HPF Urine Mucus (Auto) (NEGATIVE) /HPF Urine Culture Reflexed (NO) Urine Glucose (NEGATIVE) mg/dL 03/04/20 03/05/20 03/05/20 Range/Units Unknown 04:30 04:30 WBC 9.5 (4.0-10.5) K/mm3 RBC 3.70 L (4.1-5.4) M/mm3 Hgb 11.7 L (12.0-16.0) gm/dl Hct 34.7 L (35-47) % MCV 93.8 (78-100) fl MCH 31.6 (26-32) pg MCHC 33.7 (32-36) g/dl RDW 14.8 H (11.5-14.0) % Plt Count 184 D (150-450) K/mm3 MPV 10.0 (7.5-11.0) fl Gran % 60.7 (36.0-66.0) % Eos # (Auto) 0.53 H (0-0.5) Absolute Lymphs (auto) 2.26 (1.0-4.6) Absolute Monos (auto) 0.91 (0.0-1.3) Lymphocytes % 23.7 L (24.0-44.0) % Monocytes % 9.5 (0.0-12.0) % Eosinophils % 5.6 H (0.00-5.0) % Basophils % 0.5 (0.0-0.4) % Absolute Granulocytes 5.78 (1.4-6.9) Basophils # 0.05 (0-0.4) Sodium (137-145) mmol/L Potassium (3.5-5.1) mmol/L Chloride (98-107) mmol/L Carbon Dioxide (22-30) mmol/L Anion Gap (5-15) MEQ/L BUN (7-17) mg/dL Creatinine (0.52-1.04) mg/dL Estimated GFR ML/MIN Glucose (74-106) mg/dL Hemoglobin A1c (4.5-6.0) % Lactic Acid (0.4-2.0) Calcium (8.4-10.2) mg/dL Magnesium (1.6-2.3) mg/dL Total Bilirubin (0.2-1.3) mg/dL AST (14-36) U/L ALT (0-35) U/L Alkaline Phosphatase (38-126) U/L Troponin I 0.017 (0.000-0.034) ng/mL Serum Total Protein (6.3-8.2) g/dL Albumin (3.5-5.0) g/dL TSH 3rd Generation (0.47-4.68) mIU/L Urine Color YELLOW (YELLOW) Urine Appearance CLEAR (CLEAR) Urine pH 5.0 (5-6) Ur Specific [place] 1.012 (1.005-1.025) Urine Protein 30 (Negative) Urine Ketones NEGATIVE (NEGATIVE) Urine Blood NEGATIVE (0-5) Tulio/ul Urine Nitrite NEGATIVE (NEGATIVE) Urine Bilirubin NEGATIVE (NEGATIVE) Urine Urobilinogen NEGATIVE (0-1) mg/dL Ur Leukocyte Esterase TRACE (NEGATIVE) Urine WBC (Auto) 6-10 (0-5) /HPF Urine RBC (Auto) 0-2 (0-2) /HPF U Hyaline Cast (Auto) 0-2 (0-2) /LPF U Epithel Cells (Auto) RARE (FEW) /HPF Urine Bacteria (Auto) NONE (NEGATIVE) /HPF Urine Mucus (Auto) SLIGHT (NEGATIVE) /HPF Urine Culture Reflexed YES (NO) Urine Glucose NEGATIVE (NEGATIVE) mg/dL 03/05/20 Range/Units 04:30 WBC (4.0-10.5) K/mm3 RBC (4.1-5.4) M/mm3 Hgb (12.0-16.0) gm/dl Hct (35-47) % MCV (78-100) fl MCH (26-32) pg MCHC (32-36) g/dl RDW (11.5-14.0) % Plt Count (150-450) K/mm3 MPV (7.5-11.0) fl Gran % (36.0-66.0) % Eos # (Auto) (0-0.5) Absolute Lymphs (auto) (1.0-4.6) Absolute Monos (auto) (0.0-1.3) Lymphocytes % (24.0-44.0) % Monocytes % (0.0-12.0) % Eosinophils % (0.00-5.0) % Basophils % (0.0-0.4) % Absolute Granulocytes (1.4-6.9) Basophils # (0-0.4) Sodium 138 (137-145) mmol/L Potassium 3.7 (3.5-5.1) mmol/L Chloride 101 (98-107) mmol/L Carbon Dioxide 28 (22-30) mmol/L Anion Gap 12.4 (5-15) MEQ/L BUN 17 (7-17) mg/dL Creatinine 1.39 H (0.52-1.04) mg/dL Estimated GFR 39.8 ML/MIN Glucose 219 H (74-106) mg/dL Hemoglobin A1c (4.5-6.0) % Lactic Acid (0.4-2.0) Calcium 9.7 (8.4-10.2) mg/dL Magnesium (1.6-2.3) mg/dL Total Bilirubin 0.50 (0.2-1.3) mg/dL AST 24 (14-36) U/L ALT 18 (0-35) U/L Alkaline Phosphatase 116 (38-126) U/L Troponin I (0.000-0.034) ng/mL Serum Total Protein 7.0 (6.3-8.2) g/dL Albumin 4.0 (3.5-5.0) g/dL TSH 3rd Generation (0.47-4.68) mIU/L Urine Color (YELLOW) Urine Appearance (CLEAR) Urine pH (5-6) Ur Specific [place] (1.005-1.025) Urine Protein (Negative) Urine Ketones (NEGATIVE) Urine Blood (0-5) Tulio/ul Urine Nitrite (NEGATIVE) Urine Bilirubin (NEGATIVE) Urine Urobilinogen (0-1) mg/dL Ur Leukocyte Esterase (NEGATIVE) Urine WBC (Auto) (0-5) /HPF Urine RBC (Auto) (0-2) /HPF U Hyaline Cast (Auto) (0-2) /LPF U Epithel Cells (Auto) (FEW) /HPF Urine Bacteria (Auto) (NEGATIVE) /HPF Urine Mucus (Auto) (NEGATIVE) /HPF Urine Culture Reflexed (NO) Urine Glucose (NEGATIVE) mg/dL Micro Results-Entire Visit: Accuchecks Date 03/05/20 Date 03/04/20 Time 02:30 Time 22:00 Accucheck Value: 251 Accucheck Value: 211 Accucheck Value: 351 - Radiology Exams Ordered Rad Exams-Entire Visit: Radiology Procedures Category Date Time Status CHEST 1 VIEW (PORTABLE) Stat Exams 03/04/20 13:58 Completed HEAD WITHOUT CONTRAST [CT] Stat Exams 03/04/20 14:02 Completed Discharge Exam General Appearance: no apparent distress, alert Neurologic Exam: alert, oriented x 3, cooperative, normal mood/affect, nml cerebellar function, sensation nml, No motor deficits Eye Exam: PERRL, EOMI, eyes nml inspection Ears, Nose, Throat Exam: normal ENT inspection, pharynx normal, moist mucous membranes Neck Exam: normal inspection, non-tender, supple, full range of motion Respiratory Exam: normal breath sounds, lungs clear, No respiratory distress Cardiovascular Exam: regular rate/rhythm, normal heart sounds Gastrointestinal/Abdomen Exam: soft, No tenderness, No mass Pelvic Exam: deferred Rectal Exam: deferred Back Exam: normal inspection, normal range of motion, No CVA tenderness, No v ertebral tenderness Extremity Exam: normal inspection, normal range of motion Skin Exam: normal color, warm, dry Final Diagnosis/Problem List - Final Discharge Diagnosis/Problem (1) Acute UTI (urinary tract infection) Current Visit: Yes Status: Acute Assessment & Plan: improved. will d/c her home with cipro 500 mg po bid for 7 days Code(s): N39.0 - URINARY TRACT INFECTION, SITE NOT SPECIFIED (2) Encephalopathy acute Current Visit: Yes Status: Resolved Code(s): G93.40 - ENCEPHALOPATHY, UNSP ECIFIED (3) Chronic kidney disease (CKD) Current Visit: Yes Status: Chronic Code(s): N18.9 - CHRONIC KIDNEY DISEASE, UNSPECIFIED (4) Acute on chronic kidney failure Current Visit: Yes Status: Acute Code(s): N17.9 - ACUTE KIDNEY FAILURE, UNSPECIFIED; N18.9 - CHRONIC KIDNEY DISEASE, UNSPECIFIED (5) Diabetes mellitus, insulin dependent (IDDM), controlled Current Visit: Yes Status: Chronic Code(s): [id number] - - Discharge Discharge Date: 03/05/20 Disposition: Home, Self-Care Condition: Stable Prescriptions: New Ciprofloxacin [Cipro 500 MG] 500 mg PO BID #15 tablet Continue Acetaminophen [Tylenol] 650 mg PO Q6H Loratadine 10 mg [Claritin 10 mg] 10 mg PO HS Multivitamin [Multi-Vitamin Daily] 1 each PO DAILY Trazodone HCl 50 mg [Desyrel 50 mg] 100 mg PO HS Duloxetine HCl [Cymbalta] 60 mg PO DAILY Gabapentin [Neurontin] 1,800 mg PO DAILY Potassium Chloride 10 Meq Tab* [Klor Con 10 MEQ] 50 meq PO DAILY Isosorbide Mononitrate 30 mg [Imdur 30 MG] 30 mg PO DAILY Bumetanide [Bumex] 2 mg PO DAILY Nitroglycerin 0.4 mg Tablet [Nitrostat 0.4 MG Tablet] 0.4 mg SL Q5MIN PRN MR X 3 PRN PRN Reason: Pain Metoprolol Succinate 50 mg [Toprol Xl 50 MG] 50 mg PO HS Clopidogrel Bisulfate 75 mg [PLAVIX 75 MG Tablet] 75 mg PO DAILY Allopurinol [Zyloprim] 300 mg PO HS Insulin Lispro [Humalog] 0 unit SQ AC Glimepiride 4 mg [Amaryl 4 mg] 4 mg PO DAILY Aspirin 81 gm Chew [Baby Aspirin 81 mg Chew] 81 mg PO HS Losartan Potassium 25 mg PO DAILY Tramadol HCl 50 mg [Ultram 50 mg] 75 mg PO Q8H Olanzapine 7.5 mg PO DAILY Amlodipine Besylate 10 mg PO DAILY Cholecalciferol (Vitamin D3) [Vitamin D3] 2,000 unit PO UD Evolocumab [Repatha Sureclick] 140 mg SQ UD Insulin Glargine,Hum.rec.anlog [Basaglar Kwikpen U-100] 1 unit SQ UD Cyanocobalamin (Vitamin B-12) [B-12] 1,000 mcg PO DAILY Instructions: Delirium (Confusion) (DC), Urinary Tract Infection, Adult (DC) Follow up with: SONIA MARTIN MD [Primary Care Provider] - 1 Week
[2020-03-05] MEDS ORDERED: NON-FORMULARY ITEM (Duloxetine Hcl [Cymbalta] 60 MG) PO SCH (10:00)
[2020-03-05] MEDS ORDERED: NON-FORMULARY ITEM (Bumetanide [Bumex] 2 MG) PO SCH (10:00)
[2020-03-05] MEDS ORDERED: PLAVIX 75 MG Tablet PO SCH (10:00)
[2020-03-05] MEDS ORDERED: Cozaar 50 MG PO SCH (10:00)
[2020-03-05] MEDS ORDERED: NORVASC 5 MG PO SCH (10:00)
[2020-03-05] MEDS ORDERED: Imdur 30 MG PO SCH (10:00)
[2020-03-05] MEDS ORDERED: NEURONTIN 300 MG PO SCH (10:00)
[2020-03-05] MEDS ORDERED: NON-FORMULARY ITEM (Cyanocobalamin (Vitamin B-12) [B-12] 1,000 MCG) PO SCH (10:00)
[2020-03-05] MEDS ORDERED: NON-FORMULARY ITEM (Multivitamin [Multi-Vitamin Daily] 1 EACH) PO SCH (10:00)
[2020-03-05] MEDS ORDERED: ROCEPHIN 1 Gm-D5w 50 ml Bag** 1 G/50 ML IVPB IV SCH (10:00)
[2020-03-05] MEDS ORDERED: Vitamin B-12 500 MCG PO SCH (10:00)
[2020-03-05] MEDS ORDERED: zyPREXA 5MG TABLET PO SCH (10:00)
[2020-03-05] MEDS ORDERED: THERAGRAN MULTIVITAMIN PO SCH (10:00)
[2020-03-05] MEDS ORDERED: BUMEX 1 MG PO SCH (10:00)
[2020-03-05] MEDS ORDERED: Klor Con 10 MEQ PO SCH (10:00)
[2020-03-05] MEDS ORDERED: Cymbalta 30 MG Capsule PO SCH (10:00)
[2020-03-05] MEDS ORDERED: GABAPENTIN 1800 MG PO SCH (10:00)
[2020-03-05] MEDS ORDERED: Toprol Xl 50 MG PO SCH (22:00)
[2020-03-06] MEDS ORDERED: VITAMIN D PO SCH (10:00)
== END 2020-03-05 10:11 | disposition home or self-care (01) ==
LOC: ED 13:41 → MED SURG 17:21
PROVIDERS: ADMIT General Practice; ATTEND General Practice
DX: N39.0 Urinary tract infection, site not specified (principal); G93.40 Encephalopathy, unspecified; E11.22 Type 2 diabetes mellitus with diabetic chronic kidney disease; N18.3 Chronic kidney disease, stage 3 (moderate); N17.9 Acute kidney failure, unspecified; R42 Dizziness and giddiness; Z79.01 Long term (current) use of anticoagulants; Z79.899 Other long term (current) drug therapy
CPT/HCPCS: 36000; 36415; 70450; 71045; 80053; 81001; 82962; 83036; 83605; 83735; 84443; 84484; 85025; 87040; 87086; 93005; 93268; 96365; 99285; G0378; J0696; J1817; A9270-GY

== ENCOUNTER 2022-11-26 12:48 | Observation (INO) | payer MEDICARE ==
--- NOTE | 2022-11-26 12:52 | ERPHSYRPT ---
- History of Present Illness Time Seen by Provider: 11/26/22 12:51 Source: patient Exam Limitations: no limitations Physician History: This is a 72-year-old morbidly obese white female who is diabetic and presents to the emergency department at the direction of Dr. Martin, her primary care physician, who saw her in the office this morning. Patient is diabetic and karyn villeda went home to eat something then came to the emergency department. Patient had vital signs upon entrance into the emergency department that were within normal limits. Her room air oxygen level is 99%. The complaint the patient has is weakness and increasing shortness of breath over 1 week's time. The shortness of breath is primarily with exertion. Patient does not have chest pain. She has no abdominal pain. Patient had an aortic valve replacement which improved her CHF but she does have a history of CHF. Patient has a history of coronary artery disease, irritable bowel syndrome, and stage IV kidney disease with GFR is typically in the 20s. Because of her weakness and worsening lyly rtness of breath with exertion, she was sent to our emergency department. She has not had a fever or cough. She has not had hemoptysis, hematemesis, hematuria or bright red blood per rectum or dark tarry stools. Timing/Duration: intermittent, worse Severity of Dyspnea-Max: moderate Severity of Dyspnea-Current: moderate Possible Cause: chronic episodes Modifying Factors: Improves With: activity Associated Symptoms: weakness, No chest pain/discomfort, No hemoptysis Allergies/Adverse Reactions: hydromorphone [From Dilaudid] Allergy (Severe, Verified 11/26/22 13:24) Difficulty Breathing meclofenamic acid [From Meclomen] Allergy (Severe, Verified 11/26/22 13:24) Skin Irritation morphine Allergy (Severe, Verified 11/26/22 13:24) Difficulty Breathing Sulfa (Sulfonamide Antibiotics) Allergy (Severe, Verified 11/26/22 13:24) Extreme constipation ciprofloxacin [From Cipro] Allergy (Intermediate, Verified 11/26/22 13:24) Itching diphenhydramine [From Benadryl] Allergy (Intermediate, Verified 11/26/22 13:24) Swelling of Tongue and Lips pt unable to take po due to swelling of tongue and lips. Can take IM. Home Medications: Acetaminophen [Tylenol] 650 mg PO Q6H 08/20/17 [History] Bumetanide [Bumex] 2 mg PO DAILY 08/20/17 [History] Duloxetine HCl [Cymbalta] 60 mg PO DAILY 08/20/17 [History] Gabapentin [Neurontin] 1,800 mg PO DAILY 08/20/17 [History] Isosorbide Mononitrate 30 mg [Imdur 30 MG] 30 mg PO DAILY 08/20/17 [History] Multivitamin [Multi-Vitamin Daily] 1 each PO DAILY 08/20/17 [History] Nitroglycerin 0.4 mg Tablet [Nitrostat 0.4 MG Tablet] 0.4 mg SL Q5MIN PRN MR X 3 PRN 08/20/17 [History] Potassium Chloride Tab* [Klor Con] 50 meq PO DAILY 08/20/17 [History] Trazodone HCl 50 mg [Desyrel 50 mg] 100 mg PO HS 08/20/17 [History] Metoprolol Succinate 50 mg [Toprol Xl 50 MG] 50 mg PO HS 12/16/17 [History] Clopidogrel Bisulfate [PLAVIX Tablet] 75 mg PO DAILY 03/17/19 [History] Insulin Lispro [Humalog] 0 unit SQ AC 03/17/19 [History] allopurinoL [Zyloprim] 300 mg PO HS 03/17/19 [History] Glimepiride 4 mg [Amaryl 4 mg] 4 mg PO DAILY 06/12/19 [History] Amlodipine Besylate 10 mg PO DAILY 10/20/19 [History] Aspirin 81 gm Chew [Baby Aspirin 81 mg Chew] 81 mg PO HS 10/20/19 [History] Cholecalciferol (Vitamin D3) [Vitamin D3] 2,000 unit PO UD 10/20/19 [History] Losartan Potassium 25 mg PO DAILY 10/20/19 [History] OLANZapine [Olanzapine] 1 tab PO BID 10/20/19 [History] Evolocumab [Repatha Sureclick] 140 mg SQ UD 03/04/20 [History] Insulin Glargine,Hum.rec.anlog [Basaglar Kwikpen U-100] 1 unit SQ UD 03/04/20 [History] Cyanocobalamin (Vitamin B-12) [B-12] 1,000 mcg PO DAILY 03/05/20 [History] Montelukast Sodium 10 mg [Singulair 10 MG] 1 tab PO DAILY 11/26/22 [History] Tamsulosin HCl 0.4 mg [Flomax 0.4 MG] 1 cap PO HS 11/26/22 [History] Vibegron [Gemtesa] 1 tab PO DAILY 11/26/22 [History] Hx Tetanus, Diphtheria Vaccination/Date Given: Yes Hx Influenza Vaccination/Date Given: Yes Hx Pneumococcal Vaccination/Date Given: Yes Travel Risk - International Travel Have you traveled outside of the country in past 3 weeks: No - Coronavirus Screening Are you exhibiting any of the following symptoms?: No Close contact with a COVID-19 positive Pt in past 14-21 Days: No - Review of Systems Constitutional: Weakness Eyes: No Symptoms Ears, Nose, & Throat: No Symptoms Respiratory: No Symptoms Cardiac: No Symptoms Abdominal/Gastrointestinal: No Symptoms Genitourinary Symptoms: No Symptoms Musculoskeletal: No Symptoms Skin: No Symptoms Neurological: No Symptoms Psychological: No Symptoms Endocrine: No Symptoms Hematologic/Lymphatic: No Symptoms Immunological/Allergic: No Symptoms All Other Systems: Reviewed and Negative - Past Medical History Pertinent Past Medical History: Yes Neurological History: Other ENT History: Cataracts Cardiac History: Coronary Artery Disease, Hypertension Respiratory History: No Pertinent History Endocrine Medical History: Diabetes Type II Musculoskeletal History: Fractures, Osteoarthritis GI Medical History: Irritable Bowel History: No Pertinent History, Renal Disease, Other Psycho-Social History: Anxiety, Depression Female Reproductive Disorders: No Pertinent History, Breast Cancer Other Medical History: CARDIAC STENTS X 3, AORTIC VALVE REPLACEMENT, STAGE 4 KIDNEY DISEASE. RECENT MRI 03/28/22. UNDERWENT INJECTION S1 04/02/22. HX OF LUMBAR LAMINECTOMY THEN FUSION L3-5. - Past Surgical History Past Surgical History: Yes Neuro Surgical History: No Pertinent History Cardiac: Other Respiratory: No Pertinent History Gastrointestinal: Appendectomy, Bowel Surgery, Cholecystectomy Genitourinary: No Pertinent History Musculoskeletal: No Pertinent History Female Surgical History: No Pertinent History, Hysterectomy, Section, Tubal Ligation, Lumpectomy Other Surgical History: intestinal bypass and then reverse,sinus surgery times 2 roof/mouth then sinus surgery nose,left foot planters wart,right breast tumor,rt ankle/right leg sx after fx,left breast mastectomy with sentinel removed,6 marek steroid inj,t.a.v.r.-transcatheter aortic value replacement,lumbar laminectomy, steroid injections in back multiple times a year - Social History Smoking Status: Never smoker Exposure to second hand smoke: No Drug Use: none Patient Lives Alone: No - Nursing Vital Signs Nursing Vital Signs: Initial Vital Signs Temperature 98.1 F 11/26/22 12:49 Pulse Rate 81 11/26/22 12:49 Respiratory Rate 18 11/26/22 12:49 Blood Pressure 199/89 11/26/22 12:49 O2 Sat by Pulse Oximetry 96 11/26/22 12:49 Pain Scale Pain Intensity 0 - Physical Exam General Appearance: no apparent distress, alert, obese Eye Exam: PERRL/EOMI, pale conjunctivae Ears, Nose, Throat Exam: hearing grossly normal, normal ENT inspection, normal pharynx Neck Exam: normal inspection, non-tender, supple, full range of motion Respiratory Exam: normal breath sounds, lungs clear, airway intact, No chest tenderness, No respiratory distress Cardiovascular/Chest Exam: normal heart sounds, regular rate/rhythm Abdominal/Gastrointestinal Exam: soft, normal bowel sounds, No tenderness Rectal Exam: not done Extremity Exam: non-tender, normal range of motion, normal inspection, no pedal edema, pelvis stable Neurologic Exam: alert, oriented x 3, cooperative, 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 Probable left ventricular hypertrophy. No acute ischemic changes on today's twelve-lead EKG. Patients twelve-lead EKG is no different than the twelve-lead EKG that was performed on 03/04/2020.) Ordered Tests: Active Orders 24 hr Category Date Time Status Dry Talc Racker STAT Care 11/26/22 12:52 Active EKG-ER Only STAT Care 11/26/22 12:52 Active IV Insertion STAT Care 11/26/22 12:52 Active Pulse Oximetry (ED) STAT Care 11/26/22 12:52 Active CHEST WITHOUT CONTRAST [CT] Stat Exams 11/26/22 13:44 Completed ARTERIAL BLOOD GASES Urgent Lab 11/26/22 12:52 Completed BLOOD CULTURE Stat Lab 11/26/22 13:25 Received CBC W DIFF Stat Lab 11/26/22 13:08 Completed CMP Stat Lab 11/26/22 13:08 Completed Lactic Acid Stat Lab 11/26/22 12:53 Completed MAGNESIUM Stat Lab 11/26/22 13:08 Completed MONO SCREEN Stat Lab 11/26/22 13:08 Completed NT PRO BNPII Stat Lab 11/26/22 13:08 Completed PROCALCITONIN Stat Lab 11/26/22 13:20 Completed PROTIME WITH INR Stat Lab 11/26/22 13:08 Completed TROPONIN Q4H Lab 11/26/22 13:20 Completed TROPONIN Q4H Lab 11/26/22 17:45 Ordered TROPONIN Q4H Lab 11/26/22 21:45 Ordered Transfer Order Routine Transfer 11/26/22 Ordered Medication Summary Generic Name Dose Route Start Last Admin Trade Name Freq PRN Reason Stop Dose Admin Ceftriaxone Sodium/Dextrose 1 g in 50 mls @ 100 mls/hr 11/26/22 15:54 Rocephin 1 Gm-D5w 50 Ml Bag IV 11/26/22 16:23 STAT STA Discontinued Medications Generic Name Dose Route Start Last Admin Trade Name Freq PRN Reason Stop Dose Admin Bumetanide 1 mg 11/26/22 14:26 11/26/22 15:40 Bumetanide 0.25 Mg/Ml 4ml Vial IV 11/26/22 14:27 1 mg STAT ONE Administration Bumetanide Confirm 11/26/22 15:40 Bumetanide 0.25 Mg/Ml 4ml Vial Administered 11/26/22 15:41 Dose 1 mg .ROUTE .STK-MED ONE Lab/Rad Data: Laboratory Result Diagrams 11/26/22 13:08 11/26/22 13:08 Laboratory Results 11/26/22 11/26/22 11/26/22 Range/Units 13:20 13:20 13:08 WBC (4.0-10.5) x10^3/uL RBC (4.1-5.4) x10^6/uL Hgb (12.0-16.0) g/dL Hct (35-47) % MCV (78-100) fL MCH (26-32) pg MCHC (32-36) g/dL RDW (11.5-14.0) % Plt Count (150-450) x10^3/uL MPV (7.5-11.0) fL Gran % (36.0-66.0) % Immature Gran % (Auto) (0.00-0.4) % Nucleat RBC Rel Count (0.00-0.1) % Eos # (Auto) (0-0.5) x10^3/uL Immature Gran # (Auto) (0.00-0.03) x10^3u/L Absolute Lymphs (auto) (1.0-4.6) x10^3/uL Absolute Monos (auto) (0.0-1.3) x10^3/uL Absolute Nucleated RBC (0.00-0.01) x10^3u/L Lymphocytes % (24.0-44.0) % Monocytes % (0.0-12.0) % Eosinophils % (0.00-5.0) % Basophils % (0.0-0.4) % Absolute Granulocytes (1.4-6.9) x10^3/uL Basophils # (0-0.4) x10^3/uL PT (9.4-12.5) SECONDS INR (0.8-3.0) Puncture Site pCO2 (35-45) mmHg pO2 (75-100) mmHg Base Excess (-2.0-2.0) O2 Saturation (94-100) g/dF ABG pH (7.35-7.45) ABG HCO3 (22-28) ABG O2 Sat (Measured) (95-100) % Oral Test A-a Gradient a/A Ratio Hemoglobin Carboxyhemoglobin (0.0-6.9) % THgb Methemoglobin (1.4-1.5) % Potassium (3.5-5.1) Temperature C POC O2 Flow Rate % Sodium (137-145) mmol/L Chloride (98-107) mmol/L Carbon Dioxide (22-30) mmol/L Anion Gap (5-15) MEQ/L BUN (7-17) mg/dL Creatinine (0.52-1.04) mg/dL Estimated GFR ML/MIN Glucose (74-106) mg/dL Lactic Acid (0.4-2.0) Calcium (8.4-10.2) mg/dL Magnesium (1.6-2.3) mg/dL Total Bilirubin (0.2-1.3) mg/dL AST (14-36) U/L ALT (0-35) U/L Alkaline Phosphatase (38-126) U/L Troponin I < 0.012 (0.000-0.034) ng/mL NT-Pro-B Natriuret Pep (<300) pg/mL Serum Total Protein (6.3-8.2) g/dL Albumin (3.5-5.0) g/dL Procalcitonin 0.098 H (0.030-0.080) ng/mL Monoscreen (NEGATIVE) Influenza Type A Ag NEGATIVE (NEGATIVE) Influenza Type B Ag NEGATIVE (NEGATIVE) RSV (PCR) NEGATIVE (NEGATIVE) SARS-CoV-2 (PCR) NEGATIVE (NEGATIVE) 11/26/22 11/26/22 11/26/22 Range/Units 13:08 13:08 13:08 WBC (4.0-10.5) x10^3/uL RBC (4.1-5.4) x10^6/uL Hgb (12.0-16.0) g/dL Hct (35-47) % MCV (78-100) fL MCH (26-32) pg MCHC (32-36) g/dL RDW (11.5-14.0) % Plt Count (150-450) x10^3/uL MPV (7.5-11.0) fL Gran % (36.0-66.0) % Immature Gran % (Auto) (0.00-0.4) % Nucleat RBC Rel Count (0.00-0.1) % Eos # (Auto) (0-0.5) x10^3/uL Immature Gran # (Auto) (0.00-0.03) x10^3u/L Absolute Lymphs (auto) (1.0-4.6) x10^3/uL Absolute Monos (auto) (0.0-1.3) x10^3/uL Absolute Nucleated RBC (0.00-0.01) x10^3u/L Lymphocytes % (24.0-44.0) % Monocytes % (0.0-12.0) % Eosinophils % (0.00-5.0) % Basophils % (0.0-0.4) % Absolute Granulocytes (1.4-6.9) x10^3/uL Basophils # (0-0.4) x10^3/uL PT 9.8 (9.4-12.5) SECONDS INR 0.89 (0.8-3.0) Puncture Site pCO2 (35-45) mmHg pO2 (75-100) mmHg Base Excess (-2.0-2.0) O2 Saturation (94-100) g/dF ABG pH (7.35-7.45) ABG HCO3 (22-28) ABG O2 Sat (Measured) (95-100) % Oral Test A-a Gradient a/A Ratio Hemoglobin Carboxyhemoglobin (0.0-6.9) % THgb Methemoglobin (1.4-1.5) % Potassium 4.9 (3.5-5.1) Temperature C POC O2 Flow Rate % Sodium 140 (137-145) mmol/L Chloride 101 (98-107) mmol/L Carbon Dioxide 30 (22-30) mmol/L Anion Gap 14.3 (5-15) MEQ/L BUN 27 H (7-17) mg/dL Creatinine 1.90 H (0.52-1.04) mg/dL Estimated GFR 27.5 ML/MIN Glucose 193 H (74-106) mg/dL Lactic Acid (0.4-2.0) Calcium 9.1 (8.4-10.2) mg/dL Magnesium 2.4 H (1.6-2.3) mg/dL Total Bilirubin 0.40 (0.2-1.3) mg/dL AST 24 (14-36) U/L ALT 19 (0-35) U/L Alkaline Phosphatase 122 (38-126) U/L Troponin I (0.000-0.034) ng/mL NT-Pro-B Natriuret Pep 1010 (<300) pg/mL Serum Total Protein 7.2 (6.3-8.2) g/dL Albumin 3.9 (3.5-5.0) g/dL Procalcitonin (0.030-0.080) ng/mL Monoscreen NEGATIVE (NEGATIVE) Influenza Type A Ag (NEGATIVE) Influenza Type B Ag (NEGATIVE) RSV (PCR) (NEGATIVE) SARS-CoV-2 (PCR) (NEGATIVE) 11/26/22 11/26/22 11/26/22 Range/Units 13:08 12:53 12:52 WBC 18.0 H (4.0-10.5) x10^3/uL RBC 3.73 L (4.1-5.4) x10^6/uL Hgb 11.6 L (12.0-16.0) g/dL Hct 36.0 (35-47) % MCV 96.5 (78-100) fL MCH 31.1 (26-32) pg MCHC 32.2 (32-36) g/dL RDW 13.2 (11.5-14.0) % Plt Count 216 (150-450) x10^3/uL MPV 10.1 (7.5-11.0) fL Gran % 82.6 H (36.0-66.0) % Immature Gran % (Auto) 0.6 H (0.00-0.4) % Nucleat RBC Rel Count 0.0 (0.00-0.1) % Eos # (Auto) 0.25 (0-0.5) x10^3/uL Immature Gran # (Auto) 0.10 H (0.00-0.03) x10^3u/L Absolute Lymphs (auto) 1.64 (1.0-4.6) x10^3/uL Absolute Monos (auto) 1.08 (0.0-1.3) x10^3/uL Absolute Nucleated RBC 0.00 (0.00-0.01) x10^3u/L Lymphocytes % 9.1 L (24.0-44.0) % Monocytes % 6.0 (0.0-12.0) % Eosinophils % 1.4 (0.00-5.0) % Basophils % 0.3 (0.0-0.4) % Absolute Granulocytes 14.88 H (1.4-6.9) x10^3/uL Basophils # 0.06 (0-0.4) x10^3/uL PT (9.4-12.5) SECONDS INR (0.8-3.0) Puncture Site RIGHT BRACHIAL pCO2 41 (35-45) mmHg pO2 71 L (75-100) mmHg Base Excess 4.9 H (-2.0-2.0) O2 Saturation 95.2 (94-100) g/dF ABG pH 7.46 H (7.35-7.45) ABG HCO3 29.2 H* (22-28) ABG O2 Sat (Measured) 96.6 (95-100) % Oral Test NOT APPLICABLE A-a Gradient 27 a/A Ratio 0.72 Hemoglobin 12.6 Carboxyhemoglobin 1.2 (0.0-6.9) % THgb Methemoglobin 0.2 L (1.4-1.5) % Potassium 4.6 (3.5-5.1) Temperature 37.0 C POC O2 Flow Rate 21 % Sodium (137-145) mmol/L Chloride (98-107) mmol/L Carbon Dioxide (22-30) mmol/L Anion Gap (5-15) MEQ/L BUN (7-17) mg/dL Creatinine (0.52-1.04) mg/dL Estimated GFR ML/MIN Glucose (74-106) mg/dL Lactic Acid 1.4 (0.4-2.0) Calcium (8.4-10.2) mg/dL Magnesium (1.6-2.3) mg/dL Total Bilirubin (0.2-1.3) mg/dL AST (14-36) U/L ALT (0-35) U/L Alkaline Phosphatase (38-126) U/L Troponin I (0.000-0.034) ng/mL NT-Pro-B Natriuret Pep (<300) pg/mL Serum Total Protein (6.3-8.2) g/dL Albumin (3.5-5.0) g/dL Procalcitonin (0.030-0.080) ng/mL Monoscreen (NEGATIVE) Influenza Type A Ag (NEGATIVE) Influenza Type B Ag (NEGATIVE) RSV (PCR) (NEGATIVE) SARS-CoV-2 (PCR) (NEGATIVE) - Progress Progress: unchanged Air Movement: good Progress Note: 11/26/22 15:49 CT scan of the chest without contrast shows left lower lobe patches of consolidating/not consolidating airspace disease. I reviewed the impression of the radiologist interpretation. This patient's medical issue is 1 of high complexity. The level of complexity and the work-up performed is based on review of the patient's past medical history, review of the patient's medication list, review of the patient's drug allergy list, history present illness and physical findings on examination. The work-up performed includes twelve-lead EKG, troponin, CBC, CMP, BNP, viral swabs, CT scan of the chest without contrast. This patient has multiple medical problems. I reviewed the results of the above work-up. Patient has leukocytosis, left lower lobe pneumonia and CHF. I spoke with Dr. Martin who is the patient's primary care physician. We will place this patient in observation on telemetry. We will place her on Rocephin and azithromycin intravenously to treat her pneumonia, we will also have respiratory therapy monitor and manage her, we will put her on Bumex intravenously and place her on oxygen. Blood Culture(s) Obtained: Yes Discussed with : Mukesh Counseled pt/family regarding: lab results, diagnosis, rad results Medical Desision Making - Independent Historian Additional History obtained from: Spouse - External Record(s) Reviewed Records reviewed as a part of evaluation & management: Inpatient - Discussion of managment Care discussed with:: PCP Reviewed:: Test results, Need for additional workup Agreed on:: Treatment plan, decision to admit - Diagnostic Testing Diagnostic test were ordered, analyzed, and reviewed by me: Yes Radiological Interpretation: Reviewed by me, Teleradiologist Report - Risk of complications The pt has a high risk of morbidity or mortality based on: Decision regarding hospitilization or escalation of hosp level of care - Departure Departure Disposition: Observation Clinical Impression: Leukocytosis, Left lower lobe pneumonia, CHF (congestive heart failure), Weakness, Morbid obesity, Chronic kidney disease (CKD) Condition: Fair Critical Care Time: No Referrals: SONIA MARTIN MD [Primary Care Provider] - Follow up/PCP as directed Instructions: Heart Failure
[2022-11-26 13:18] LABS: Absolute Neutrophil Ct (ANC) 14.88 x10^3/uL (1.4-6.9); BASOPHIL % 0.3 % (0.0-0.4); Basophil (Absolute #) 0.06 x10^3/uL (0-0.4); Eosinophil % 1.4 % (0.00-5.0); Eosinophil (Absolute #) 0.25 x10^3/uL (0-0.5); Hemoglobin 11.6 g/dL (12.0-16.0); IMMATURE GRAN % 0.6 % (0.00-0.4); Lymphocyte (Absolute #) 1.64 x10^3/uL (1.0-4.6); Lymphocytes % 9.1 % (24.0-44.0); Mean Cell Volume 96.5 fL (78-100); Mean Corpuscular Hemoglobin 31.1 pg (26-32); Mean Corpuscular Hgb Concent. 32.2 g/dL (32-36); Mean Platelet Volume 10.1 fL (7.5-11.0); Monocyte (Absolute #) 1.08 x10^3/uL (0.0-1.3); Neutrophil % 82.6 % (36.0-66.0); Platelet Count 216 x10^3/uL (150-450); Red Blood Count 3.73 x10^6/uL (4.1-5.4); Red Cell Distribution Width 13.2 % (11.5-14.0)
[2022-11-26 13:20] LABS: A-aADO2 27; ABG HEMOGLOBIN 12.6; ABG POTASSIUM 4.6 (3.5-5.1); ARTERIAL BLD GAS O2 SATURATION 96.6 % (95-100); ARTERIAL BLOOD GAS BASE EXCESS 4.9 (-2.0-2.0); ARTERIAL BLOOD GAS FIO2 21 %; ARTERIAL BLOOD GAS PCO2 41 mmHg (35-45); ARTERIAL BLOOD GAS PO2 71 mmHg (75-100); ARTERIAL BLOOD GAS pH 7.46 (7.35-7.45); CARBOXYHEMOGLOBIN 1.2 % THgb (0.0-6.9); HCO3- 29.2 (22-28); HGB O2 SAT 95.2 g/dF (94-100); Methhemoglobin 0.2 % (1.4-1.5); paO2 pAO1 0.72
[2022-11-26 13:21] LABS: ABG SITE RIGHT BRACHIAL
[2022-11-26 13:35] LABS: INR 0.89 (0.8-3.0); PROTIME 9.8 SECONDS (9.4-12.5)
[2022-11-26 13:44] LABS: ALBUMIN 3.9 g/dL (3.5-5.0); ANION GAP 14.3 MEQ/L (5-15); BILIRUBIN,TOTAL 0.4 mg/dL (0.2-1.3); Calcium 9.1 mg/dL (8.4-10.2); Creatinine 1 1.9 mg/dL (0.52-1.04); EST GLOMERULAR FILTRATION RATE 27.5 ML/MIN; MAGNESIUM 2.4 mg/dL (1.6-2.3); Potassium 4.9 mmol/L (3.5-5.1); Total Protein 7.2 g/dL (6.3-8.2)
[2022-11-26 13:55] LABS: INFLUENZA A NEGATIVE (NEGATIVE); INFLUENZA B NEGATIVE (NEGATIVE); RESPIRATORY SYNCTIAL VIRUS NEGATIVE (NEGATIVE); SARS-CoV-2 Xpert Express NEGATIVE (NEGATIVE)
[2022-11-26] MEDS ORDERED: BUMEX 1 MG IV ONE (14:26)
--- NOTE | 2022-11-26 14:37 | XRAY ---
Indication: Short of breath. CHF. Multiple contiguous axial images obtained through the chest without contrast. Comparison: None Lung bases demonstrates posterior left lower lobe patchy consolidating/nonconsolidating airspace disease without effusion. Mild right hemidiaphragm elevation with right base subsegmental atelectasis. Heart not enlarged with aortic valve replacement surgery and extensive scattered coronary calcifications. Aorta mildly arteriosclerotic without aneurysm. Small right hilar calcified nodes. Bony thorax intact with osteopenia and mild degenerative changes throughout the spine. Limited upper abdomen demonstrates incompletely visualized right renal atrophy and moderate fecal debris of the visualized colon. Impression: 1. Left lower lobe patchy consolidating/nonconsolidating airspace disease. 2. Incidental fecal stasis. 3. Chronic findings including right hemidiaphragm elevation with right base subsegmental atelectasis, arteriosclerotic disease, chronic bony findings, right renal atrophy, and old granulomatous disease.
[2022-11-26] MEDS ORDERED: BUMEX 1 MG ONE (15:40)
[2022-11-26] MEDS ORDERED: ROCEPHIN 1 Gm-D5w 50 ml Bag** 1 G/50 ML IVPB IV STA (15:54)
[2022-11-26] MEDS ORDERED: ROCEPHIN 1 Gm-D5w 50 ml Bag** 1 G/50 ML IVPB IV ONE (15:58)
[2022-11-26] MEDS ORDERED: TYLENOL 325 MG PO PRN (16:41)
[2022-11-26] MEDS ORDERED: Zofran 4 MG/2 ML VIAL IV PRN (16:41)
[2022-11-26] MEDS ORDERED: Nitrostat 0.4 MG Tablet SL PRN (17:14)
[2022-11-26] MEDS ORDERED: NON-FORMULARY ITEM (Cholecalciferol (Vitamin D3) [Vitamin D3] 2,000 UNIT Capsule) PO SCH (17:15)
[2022-11-26] MEDS ORDERED: NON-FORMULARY ITEM (Evolocumab [Repatha Sureclick] 140 MG/ML Pen.Injctr) SQ SCH (17:15)
[2022-11-26] MEDS ORDERED: NON-FORMULARY ITEM (Insulin Lispro 1 UNIT Ml) SQ SCH (17:30)
[2022-11-26] MEDS: HUMALOG SQ SCH (17:39)
[2022-11-26] MEDS: ZYLOPRIM 300 MG PO SCH (17:43)
[2022-11-26] MEDS: Toprol Xl 50 MG PO SCH (17:43)
[2022-11-26] MEDS ORDERED: MEDICATION INTERVENTION MC SCH ×2 (17:45)
[2022-11-26] MEDS: Zithromax 500 MG/ 250 ML NaCl Premix 500 MG/250 ML IVPB IV SCH (18:20)
--- NOTE | 2022-11-26 21:17 | PCM.HP ---
History of Present Illness - Chief Complaint Chief Complaint: weakness and short of breath for 3 days History of Present Illness: is a 72 year old female.who is diabetic and presents to the emergency department at the direction of Dr. Martin, her primary care physician, who saw her in the office this morning. Patient is diabetic and first went home to eat something then came to the emergency department. Patient had vital signs upon entrance into the emergency department that were within normal limits. Her room air oxygen level is 99%. The complaint the patient has is weakness and increasing shortness of breath over 1 week's time. The shortness of breath is primarily with exertion. Patient does not have chest pain. She has no abdominal pain. Patient had an aortic valve replacement which improved her CHF but she does have a history of CHF. Patient has a history of coronary artery disease, irritable bowel syndrome, and stage IV kidney disease with GFR is typically in the 20s. Because of her weakness and worsening shortness of breath with exertion, she was sent to our emergency department. She has not had a fever or cough. She has not had hemoptysis, hematemesis, hematuria or bright red blood per rectum or dark tarry stools. Timing/Duration: intermittent, worse Severity of Dyspnea-Max: moderate Severity of Dyspnea-Current: moderate Possible Cause: chronic episodes Modifying Factors: Improves With: activity Associated Symptoms: weakness, No chest pain/discomfort, No hemoptysis - Review of Systems Constitutional: Fatigue, Lethargy, Malaise, Weakness, No Fever, No Chills Eyes: No Symptoms Ears, Nose, & Throat: No Symptoms Respiratory: Orthopnea, Short Of Breath, No Cough Cardiac: Orthopnea, PND, No Chest Pain, No Edema, No Syncope Abdominal/Gastrointestinal: No Abdominal Pain, No Nausea, No Vomiting, No Diarrhea Genitourinary Symptoms: No Dysuria Musculoskeletal: No Back Pain, No Neck Pain Skin: No Rash Neurological: No Dizziness, No Focal Weakness, No Sensory Changes Psychological: No Symptoms Endocrine: No Symptoms Hematologic/Lymphatic: No Symptoms Immunological/Allergic: No Symptoms Medications & Allergies Home Medications: Home Medication List Bumetanide [Bumex] 2 mg PO DAILY 08/20/17 [History Confirmed 11/26/22] Duloxetine HCl [Cymbalta] 60 mg PO DAILY 08/20/17 [History Confirmed 11/26/22] Gabapentin [Neurontin] 600 mg PO TID 08/20/17 [History Confirmed 11/26/22] Isosorbide Mononitrate 30 mg [Imdur 30 MG] 30 mg PO DAILY 08/20/17 [History Confirmed 11/26/22] Multivitamin [Multi-Vitamin Daily] 1 each PO DAILY 08/20/17 [History Confirmed 11/26/22] Nitroglycerin 0.4 mg Tablet [Nitrostat 0.4 MG Tablet] 0.4 mg SL Q5MIN PRN MR X 3 PRN 08/20/17 [History Confirmed 11/26/22] Potassium Chloride Tab* [Klor Con] 50 meq PO DAILY 08/20/17 [History Confirmed 11/26/22] Trazodone HCl 50 mg [Desyrel 50 mg] 100 mg PO HS 08/20/17 [History Confirmed 11/26/22] Metoprolol Succinate 50 mg [Toprol Xl 50 MG] 50 mg PO HS 12/16/17 [History Confirmed 11/26/22] Clopidogrel Bisulfate [PLAVIX Tablet] 75 mg PO DAILY 03/17/19 [History Confirmed 11/26/22] Insulin Lispro [Humalog] 0 unit SQ UD 03/17/19 [History Confirmed 11/26/22] allopurinoL [Zyloprim] 300 mg PO HS 03/17/19 [History Confirmed 11/26/22] Glimepiride 4 mg [Amaryl 4 mg] 4 mg PO DAILY 06/12/19 [History Confirmed 11/26/22] Amlodipine Besylate 10 mg PO DAILY 10/20/19 [History Confirmed 11/26/22] Aspirin 81 gm Chew [Baby Aspirin 81 mg Chew] 81 mg PO HS 10/20/19 [History Confirmed 11/26/22] Cholecalciferol (Vitamin D3) [Vitamin D3] 2,000 unit PO UD 10/20/19 [History Confirmed 11/26/22] Losartan Potassium 25 mg PO DAILY 10/20/19 [History Confirmed 11/26/22] OLANZapine [Olanzapine] 1 tab PO BID 10/20/19 [History Confirmed 11/26/22] Evolocumab [Repatha Sureclick] 140 mg SQ UD 03/04/20 [History Confirmed 11/26/22] Insulin Glargine,Hum.rec.anlog [Basaglar Kwikpen U-100] 6 unit SQ DAILY 03/04/20 [History Confirmed 11/26/22] Cyanocobalamin (Vitamin B-12) [B-12] 1,000 mcg PO DAILY 03/05/20 [History Confirmed 11/26/22] Acetaminophen [Tylenol Arthritis] 650 mg PO BID 11/26/22 [History Confirmed 11/26/22] Montelukast Sodium 10 mg [Singulair 10 MG] 1 tab PO DAILY 11/26/22 [History Confirmed 11/26/22] Tamsulosin HCl 0.4 mg [Flomax 0.4 MG] 1 cap PO HS 11/26/22 [History Confirmed 11/26/22] Vibegron [Gemtesa] 1 tab PO DAILY 11/26/22 [History Confirmed 11/26/22] Allergies/Adverse Reactions: Allergies Allergy/AdvReac Type Severity Reaction Status Date / Time hydromorphone [From Dilaudid] Allergy Severe Difficulty Verified 11/26/22 13:24 Breathing meclofenamic acid Allergy Severe Skin Verified 11/26/22 13:24 [From Meclomen] Irritation morphine Allergy Severe Difficulty Verified 11/26/22 13:24 Breathing Sulfa (Sulfonamide Allergy Severe Verified 11/26/22 13:24 Antibiotics) ciprofloxacin [From Cipro] Allergy Intermediate Itching Verified 11/26/22 13:24 diphenhydramine Allergy Intermediate Swelling Verified 11/26/22 13:24 [From Benadryl] of Tongue and Lips - Past Medical History Past Medical History: Yes Neurological History: No Pertinent History ENT History: Cataracts Cardiac History: Coronary Artery Disease, High Cholesterol, Hypertension Respiratory History: No Pertinent History, CHF Endocrine Medical History: Diabetes Type II Musculoskelatal History: Fractures, Osteoarthritis GI Medical History: Irritable Bowel History: Renal Disease, Other Pyscho-Social History: Anxiety, Depression Reproductive Disorders: Breast Cancer Comment: CARDIAC STENTS X 3, AORTIC VALVE REPLACEMENT, STAGE 4 KIDNEY DISEASE. RECENT MRI 03/28/22. UNDERWENT INJECTION S1 04/02/22. HX OF LUMBAR LAMINECTOMY THEN FUSION L3-5. Right leg Fracture November 2009 - Female History Are you now?: No - Past Surgical History Past Surgical History: Yes Neuro Surgical History: No Pertinent History Cardiac History: Other Respiratory Surgery: No Pertinent History GI Surgical History: Appendectomy, Cholecystectomy Genitourinary Surgical Hx: No Pertinent History Musculskeletal Surgical Hx: No Pertinent History Female Surgical History: Hysterectomy, Section, Tubal Ligation, Lumpectomy Other Surgical History: intestinal bypass and then reverse,sinus surgery times 2 roof/mouth then sinus surgery nose,left foot planters wart,right breast tumor,rt ankle/right leg sx after fx,left breast mastectomy with sentinel removed,6 marek steroid inj,t.a.v.r.-transcatheter aortic value replacement,lumbar laminectomy, steroid injections in back multiple times a year - Social History Smoking Status: Never smoker Exposure to second hand smoke: No Alcohol: None Drug Use: none - Physical Exam Vital Signs: Vital Signs - 24 hr Temp Pulse Resp BP BP Pulse Ox 11/26/22 20:00 96.8 F 81 18 150/63 96 11/26/22 17:16 83 16 94 L 11/26/22 16:46 97.1 F 80 16 137/63 95 11/26/22 16:10 83 13 166/68 93 L 11/26/22 16:00 84 15 171/78 96 11/26/22 15:50 84 16 142/84 96 11/26/22 15:40 84 14 96 11/26/22 15:30 18 11/26/22 15:22 84 16 11/26/22 15:00 17 173/91 11/26/22 14:51 17 105/77 95 11/26/22 14:40 85 18 160/75 96 11/26/22 14:37 83 17 135/85 96 11/26/22 14:30 17 168/112 95 11/26/22 14:23 81 16 151/77 98 11/26/22 14:00 82 18 116/65 96 11/26/22 13:53 79 17 152/107 95 11/26/22 13:50 82 17 11/26/22 13:40 79 10 L 11/26/22 13:31 80 17 11/26/22 12:52 80 15 199/89 95 11/26/22 12:49 98.1 F 81 18 199/89 96 General Appearance: moderate distress, alert Neurologic Exam: alert, oriented x 3, cooperative, No motor deficits Eye Exam: PERRL/EOMI, eyes nml inspection Ears, Nose, Throat Exam: normal ENT inspection, TMs normal, pharynx normal, moist mucous membranes Neck Exam: normal inspection, non-tender, supple, full range of motion Respiratory Exam: diminished breath sounds, crackles/rales, rhonchi, wheezing, No respiratory distress Cardiovascular Exam: regular rate/rhythm, normal heart sounds, normal peripheral pulses Gastrointestinal/Abdomen Exam: soft, normal bowel sounds, No tenderness, No mass Back Exam: normal inspection, normal range of motion, No CVA tenderness, No vertebral tenderness Extremity Exam: normal inspection, normal range of motion, pelvis stable Skin Exam: normal color, warm, dry, No rash Lymphatic Exam: No adenopathy Results - Labs Lab/Micro Results: Lab Results-Last 24 Hours 11/26/22 11/26/22 11/26/22 Range/Units 12:52 12:53 13:08 WBC 18.0 H (4.0-10.5) x10^3/uL RBC 3.73 L (4.1-5.4) x10^6/uL Hgb 11.6 L (12.0-16.0) g/dL Hct 36.0 (35-47) % MCV 96.5 (78-100) fL MCH 31.1 (26-32) pg MCHC 32.2 (32-36) g/dL RDW 13.2 (11.5-14.0) % Plt Count 216 (150-450) x10^3/uL MPV 10.1 (7.5-11.0) fL Gran % 82.6 H (36.0-66.0) % Immature Gran % (Auto) 0.6 H (0.00-0.4) % Nucleat RBC Rel Count 0.0 (0.00-0.1) % Eos # (Auto) 0.25 (0-0.5) x10^3/uL Immature Gran # (Auto) 0.10 H (0.00-0.03) x10^3u/L Absolute Lymphs (auto) 1.64 (1.0-4.6) x10^3/uL Absolute Monos (auto) 1.08 (0.0-1.3) x10^3/uL Absolute Nucleated RBC 0.00 (0.00-0.01) x10^3u/L Lymphocytes % 9.1 L (24.0-44.0) % Monocytes % 6.0 (0.0-12.0) % Eosinophils % 1.4 (0.00-5.0) % Basophils % 0.3 (0.0-0.4) % Absolute Granulocytes 14.88 H (1.4-6.9) x10^3/uL Basophils # 0.06 (0-0.4) x10^3/uL PT (9.4-12.5) SECONDS INR (0.8-3.0) Puncture Site RIGHT BRACHIAL pCO2 41 (35-45) mmHg pO2 71 L (75-100) mmHg Base Excess 4.9 H (-2.0-2.0) O2 Saturation 95.2 (94-100) g/dF ABG pH 7.46 H (7.35-7.45) ABG HCO3 29.2 H* (22-28) ABG O2 Sat (Measured) 96.6 (95-100) % Oral Test NOT APPLICABLE A-a Gradient 27 a/A Ratio 0.72 Hemoglobin 12.6 Carboxyhemoglobin 1.2 (0.0-6.9) % THgb Methemoglobin 0.2 L (1.4-1.5) % Potassium 4.6 (3.5-5.1) Temperature 37.0 C POC O2 Flow Rate 21 % Sodium (137-145) mmol/L Chloride (98-107) mmol/L Carbon Dioxide (22-30) mmol/L Anion Gap (5-15) MEQ/L BUN (7-17) mg/dL Creatinine (0.52-1.04) mg/dL Estimated GFR ML/MIN Glucose (74-106) mg/dL Lactic Acid 1.4 (0.4-2.0) Calcium (8.4-10.2) mg/dL Magnesium (1.6-2.3) mg/dL Total Bilirubin (0.2-1.3) mg/dL AST (14-36) U/L ALT (0-35) U/L Alkaline Phosphatase (38-126) U/L Troponin I (0.000-0.034) ng/mL NT-Pro-B Natriuret Pep (<300) pg/mL Serum Total Protein (6.3-8.2) g/dL Albumin (3.5-5.0) g/dL Procalcitonin (0.030-0.080) ng/mL Monoscreen (NEGATIVE) Influenza Type A Ag (NEGATIVE) Influenza Type B Ag (NEGATIVE) RSV (PCR) (NEGATIVE) SARS-CoV-2 (PCR) (NEGATIVE) 11/26/22 11/26/22 11/26/22 Range/Units 13:08 13:08 13:08 WBC (4.0-10.5) x10^3/uL RBC (4.1-5.4) x10^6/uL Hgb (12.0-16.0) g/dL Hct (35-47) % MCV (78-100) fL MCH (26-32) pg MCHC (32-36) g/dL RDW (11.5-14.0) % Plt Count (150-450) x10^3/uL MPV (7.5-11.0) fL Gran % (36.0-66.0) % Immature Gran % (Auto) (0.00-0.4) % Nucleat RBC Rel Count (0.00-0.1) % Eos # (Auto) (0-0.5) x10^3/uL Immature Gran # (Auto) (0.00-0.03) x10^3u/L Absolute Lymphs (auto) (1.0-4.6) x10^3/uL Absolute Monos (auto) (0.0-1.3) x10^3/uL Absolute Nucleated RBC (0.00-0.01) x10^3u/L Lymphocytes % (24.0-44.0) % Monocytes % (0.0-12.0) % Eosinophils % (0.00-5.0) % Basophils % (0.0-0.4) % Absolute Granulocytes (1.4-6.9) x10^3/uL Basophils # (0-0.4) x10^3/uL PT 9.8 (9.4-12.5) SECONDS INR 0.89 (0.8-3.0) Puncture Site pCO2 (35-45) mmHg pO2 (75-100) mmHg Base Excess (-2.0-2.0) O2 Saturation (94-100) g/dF ABG pH (7.35-7.45) ABG HCO3 (22-28) ABG O2 Sat (Measured) (95-100) % Oral Test A-a Gradient a/A Ratio Hemoglobin Carboxyhemoglobin (0.0-6.9) % THgb Methemoglobin (1.4-1.5) % Potassium 4.9 (3.5-5.1) Temperature C POC O2 Flow Rate % Sodium 140 (137-145) mmol/L Chloride 101 (98-107) mmol/L Carbon Dioxide 30 (22-30) mmol/L Anion Gap 14.3 (5-15) MEQ/L BUN 27 H (7-17) mg/dL Creatinine 1.90 H (0.52-1.04) mg/dL Estimated GFR 27.5 ML/MIN Glucose 193 H (74-106) mg/dL Lactic Acid (0.4-2.0) Calcium 9.1 (8.4-10.2) mg/dL Magnesium 2.4 H (1.6-2.3) mg/dL Total Bilirubin 0.40 (0.2-1.3) mg/dL AST 24 (14-36) U/L ALT 19 (0-35) U/L Alkaline Phosphatase 122 (38-126) U/L Troponin I (0.000-0.034) ng/mL NT-Pro-B Natriuret Pep 1010 (<300) pg/mL Serum Total Protein 7.2 (6.3-8.2) g/dL Albumin 3.9 (3.5-5.0) g/dL Procalcitonin (0.030-0.080) ng/mL Monoscreen NEGATIVE (NEGATIVE) Influenza Type A Ag (NEGATIVE) Influenza Type B Ag (NEGATIVE) RSV (PCR) (NEGATIVE) SARS-CoV-2 (PCR) (NEGATIVE) 11/26/22 11/26/22 11/26/22 Range/Units 13:08 13:20 13:20 WBC (4.0-10.5) x10^3/uL RBC (4.1-5.4) x10^6/uL Hgb (12.0-16.0) g/dL Hct (35-47) % MCV (78-100) fL MCH (26-32) pg MCHC (32-36) g/dL RDW (11.5-14.0) % Plt Count (150-450) x10^3/uL MPV (7.5-11.0) fL Gran % (36.0-66.0) % Immature Gran % (Auto) (0.00-0.4) % Nucleat RBC Rel Count (0.00-0.1) % Eos # (Auto) (0-0.5) x10^3/uL Immature Gran # (Auto) (0.00-0.03) x10^3u/L Absolute Lymphs (auto) (1.0-4.6) x10^3/uL Absolute Monos (auto) (0.0-1.3) x10^3/uL Absolute Nucleated RBC (0.00-0.01) x10^3u/L Lymphocytes % (24.0-44.0) % Monocytes % (0.0-12.0) % Eosinophils % (0.00-5.0) % Basophils % (0.0-0.4) % Absolute Granulocytes (1.4-6.9) x10^3/uL Basophils # (0-0.4) x10^3/uL PT (9.4-12.5) SECONDS INR (0.8-3.0) Puncture Site pCO2 (35-45) mmHg pO2 (75-100) mmHg Base Excess (-2.0-2.0) O2 Saturation (94-100) g/dF ABG pH (7.35-7.45) ABG HCO3 (22-28) ABG O2 Sat (Measured) (95-100) % Oral Test A-a Gradient a/A Ratio Hemoglobin Carboxyhemoglobin (0.0-6.9) % THgb Methemoglobin (1.4-1.5) % Potassium (3.5-5.1) Temperature C POC O2 Flow Rate % Sodium (137-145) mmol/L Chloride (98-107) mmol/L Carbon Dioxide (22-30) mmol/L Anion Gap (5-15) MEQ/L BUN (7-17) mg/dL Creatinine (0.52-1.04) mg/dL Estimated GFR ML/MIN Glucose (74-106) mg/dL Lactic Acid (0.4-2.0) Calcium (8.4-10.2) mg/dL Magnesium (1.6-2.3) mg/dL Total Bilirubin (0.2-1.3) mg/dL AST (14-36) U/L ALT (0-35) U/L Alkaline Phosphatase (38-126) U/L Troponin I < 0.012 (0.000-0.034) ng/mL NT-Pro-B Natriuret Pep (<300) pg/mL Serum Total Protein (6.3-8.2) g/dL Albumin (3.5-5.0) g/dL Procalcitonin 0.098 H (0.030-0.080) ng/mL Monoscreen (NEGATIVE) Influenza Type A Ag NEGATIVE (NEGATIVE) Influenza Type B Ag NEGATIVE (NEGATIVE) RSV (PCR) NEGATIVE (NEGATIVE) SARS-CoV-2 (PCR) NEGATIVE (NEGATIVE) 11/26/22 Range/Units 17:55 WBC (4.0-10.5) x10^3/uL RBC (4.1-5.4) x10^6/uL Hgb (12.0-16.0) g/dL Hct (35-47) % MCV (78-100) fL MCH (26-32) pg MCHC (32-36) g/dL RDW (11.5-14.0) % Plt Count (150-450) x10^3/uL MPV (7.5-11.0) fL Gran % (36.0-66.0) % Immature Gran % (Auto) (0.00-0.4) % Nucleat RBC Rel Count (0.00-0.1) % Eos # (Auto) (0-0.5) x10^3/uL Immature Gran # (Auto) (0.00-0.03) x10^3u/L Absolute Lymphs (auto) (1.0-4.6) x10^3/uL Absolute Monos (auto) (0.0-1.3) x10^3/uL Absolute Nucleated RBC (0.00-0.01) x10^3u/L Lymphocytes % (24.0-44.0) % Monocytes % (0.0-12.0) % Eosinophils % (0.00-5.0) % Basophils % (0.0-0.4) % Absolute Granulocytes (1.4-6.9) x10^3/uL Basophils # (0-0.4) x10^3/uL PT (9.4-12.5) SECONDS INR (0.8-3.0) Puncture Site pCO2 (35-45) mmHg pO2 (75-100) mmHg Base Excess (-2.0-2.0) O2 Saturation (94-100) g/dF ABG pH (7.35-7.45) ABG HCO3 (22-28) ABG O2 Sat (Measured) (95-100) % Oral Test A-a Gradient a/A Ratio Hemoglobin Carboxyhemoglobin (0.0-6.9) % THgb Methemoglobin (1.4-1.5) % Potassium (3.5-5.1) Temperature C POC O2 Flow Rate % Sodium (137-145) mmol/L Chloride (98-107) mmol/L Carbon Dioxide (22-30) mmol/L Anion Gap (5-15) MEQ/L BUN (7-17) mg/dL Creatinine (0.52-1.04) mg/dL Estimated GFR ML/MIN Glucose (74-106) mg/dL Lactic Acid (0.4-2.0) Calcium (8.4-10.2) mg/dL Magnesium (1.6-2.3) mg/dL Total Bilirubin (0.2-1.3) mg/dL AST (14-36) U/L ALT (0-35) U/L Alkaline Phosphatase (38-126) U/L Troponin I < 0.012 (0.000-0.034) ng/mL NT-Pro-B Natriuret Pep (<300) pg/mL Serum Total Protein (6.3-8.2) g/dL Albumin (3.5-5.0) g/dL Procalcitonin (0.030-0.080) ng/mL Monoscreen (NEGATIVE) Influenza Type A Ag (NEGATIVE) Influenza Type B Ag (NEGATIVE) RSV (PCR) (NEGATIVE) SARS-CoV-2 (PCR) (NEGATIVE) - Radiology Impressions Radiology Exams & Impressions: Radiology Procedures Category Date Time Status CHEST WITHOUT CONTRAST [CT] Stat Exams 11/26/22 13:[address]/CHEST WITHOUT CONTRAST Indication: Short of breath. CHF. Multiple contiguous axial images obtained through the chest without contrast. Comparison: None Lung bases demonstrates posterior left lower lobe patchy consolidating/nonconsolidating airspace disease without effusion. Mild right hemidiaphragm elevation with right base subsegmental atelectasis. Heart not enlarged with aortic valve replacement surgery and extensive scattered coronary calcifications. Aorta mildly arteriosclerotic without aneurysm. Small right hilar calcified nodes. Bony thorax intact with osteopenia and mild degenerative changes throughout the spine. Limited upper abdomen demonstrates incompletely visualized right renal atrophy and moderate fecal debris of the visualized colon. Impression: 1. Left lower lobe patchy consolidating/nonconsolidating airspace disease. 2. Incidental fecal stasis. 3. Chronic findings including right hemidiaphragm elevation with right base subsegmental atelectasis, arteriosclerotic disease, chronic bony findings, right renal atrophy, and old granulomatous disease. - Other Procedures and Tests Respiratory Therapy 11/26/22 16:41 EKG REPEAT IN AM Assessment/Plan (1) Left lower lobe pneumonia Current Visit: Yes Status: Acute Qualifiers: Pneumonia type: due to Pneumococcus Qualified Code(s): J13 - Pneumonia due to Streptococcus pneumoniae Assessment & Plan: Chief Complaint Diagnosis Pneumonia Allergies Allergy/AdvReac Type Severity Reaction Status Date / Time hydromorphone [From Dilaudid] Allergy Severe Difficulty Verified 11/26/22 13:24 Breathing meclofenamic acid Allergy Severe Skin Verified 11/26/22 13:24 [From Meclomen] Irritation morphine Allergy Severe Difficulty Verified 11/26/22 13:24 Breathing Sulfa (Sulfonamide Allergy Severe Verified 11/26/22 13:24 Antibiotics) ciprofloxacin [From Cipro] Allergy Intermediate Itching Verified 11/26/22 13:24 diphenhydramine Allergy Intermediate Swelling Verified 11/26/22 13:24 [From Benadryl] of Tongue and Lips Vital Signs (Last 24 hours) Temp Pulse Resp BP BP Pulse Ox 11/26/22 20:00 96.8 F 81 18 150/63 96 11/26/22 17:16 83 16 94 L 11/26/22 16:46 97.1 F 80 16 137/63 95 11/26/22 16:10 83 13 166/68 93 L 11/26/22 16:00 84 15 171/78 96 11/26/22 15:50 84 16 142/84 96 11/26/22 15:40 84 14 96 11/26/22 15:30 18 11/26/22 15:22 84 16 11/26/22 15:00 17 173/91 11/26/22 14:51 17 105/77 95 11/26/22 14:40 85 18 160/75 96 11/26/22 14:37 83 17 135/85 96 11/26/22 14:30 17 168/112 95 11/26/22 14:23 81 16 151/77 98 11/26/22 14:00 82 18 116/65 96 11/26/22 13:53 79 17 152/107 95 11/26/22 13:50 82 17 11/26/22 13:40 79 10 L 11/26/22 13:31 80 17 11/26/22 12:52 80 15 199/89 95 11/26/22 12:49 98.1 F 81 18 199/89 96 Home Medications Medication Instructions Recorded Confirmed Last Taken Type Acetaminophen [Tylenol Arthritis] 650 mg PO BID 11/26/22 11/26/22 Unknown History Montelukast Sodium 10 mg 1 tab PO DAILY 11/26/22 11/26/22 Unknown History [Singulair 10 MG] Tamsulosin HCl 0.4 mg [Flomax 1 cap PO HS 11/26/22 11/26/22 Unknown History 0.4 MG] Vibegron [Gemtesa] 1 tab PO DAILY 11/26/22 11/26/22 Unknown History Current Medications Generic Name Dose Route Start Last Admin Trade Name Chapo PRN Reason Stop Dose Admin Acetaminophen 650 mg 11/26/22 16:41 Acetaminophen 325 Mg Tablet PO 12/26/22 16:40 Q4H PRN PRN PAIN, FEVER, HEADACHE Acetaminophen 650 mg 11/26/22 22:00 Acetaminophen 325 Mg Tablet PO 12/26/22 21:59 BID [facility] Allopurinol 300 mg 11/26/22 22:00 11/26/22 17:43 Allopurinol 300 Mg Tablet PO 12/26/22 21:59 Not Given HS [facility] Amlodipine Besylate 10 mg 11/27/22 10:00 Amlodipine Besylate 5 Mg Tablet PO 12/27/22 09:59 DAILY [facility] Aspirin 81 mg 11/26/22 22:00 Aspirin 81 Mg Tablet.Ec PO 12/26/22 21:59 HS [facility] Bumetanide 2 mg 11/27/22 10:00 Bumetanide 1 Mg Tablet PO 12/27/22 09:59 DAILY [facility] Cholecalciferol 2,000 unit 11/27/22 10:00 Cholecalciferol (Vitamin D3) 1000 Unit Tablet PO 12/27/22 09:59 MoWeFr [facility] Clopidogrel Bisulfate 75 mg 11/27/22 10:00 Clopidogrel Bisulfate 75 Mg Tablet PO 12/27/22 09:59 DAILY [facility] Cyanocobalamin 1,000 mcg 11/27/22 10:00 Cyanocobalamin 500 Mcg Tablet PO 12/27/22 09:59 DAILY [facility] Duloxetine HCl 60 mg 11/27/22 10:00 Duloxetine Hcl 30 Mg Cap PO 12/27/22 09:59 DAILY [facility] Gabapentin 600 mg 11/26/22 22:00 Gabapentin 300 Mg Capsule PO 12/26/22 21:59 TID [facility] Glimepiride 4 mg 11/27/22 08:00 Glimepiride 4 Mg Tablet PO 12/27/22 07:59 BREAKFAST [facility] Azithromycin 500 mg in 250 mls @ 250 mls/hr 11/26/22 17:00 11/26/22 18:20 Zithromax 500 Mg/ 250 Ml Nacl Premix IV 12/26/22 16:59 250 mls/hr Q24H10 [facility] Administration Ceftriaxone Sodium/Dextrose 1 g in 50 mls @ 100 mls/hr 11/27/22 10:00 Rocephin 1 Gm-D5w 50 Ml Bag IV 11/30/22 09:59 Q24H10 [facility] Insulin Glargine 6 unit 11/27/22 10:00 Insulin Glargine 1 Unit SQ 12/27/22 09:59 DAILY [facility] Insulin Human Lispro 8 unit 11/27/22 08:00 Insulin Lispro 1 Unit SQ 12/27/22 07:59 BREAKFAST [facility] Insulin Human Lispro 3 unit 11/27/22 12:00 Insulin Lispro 1 Unit SQ 12/27/22 11:59 LUNCH [facility] Insulin Human Lispro 6 unit 11/26/22 17:30 11/26/22 17:39 Insulin Lispro 1 Unit SQ 12/26/22 17:29 Not Given DINNER [facility] Insulin Human Regular 0 unit 11/26/22 16:41 Insulin Regular, Human 1 Unit SQ 12/26/22 16:40 UD PRN HYPERGLYCEMIA Isosorbide Mononitrate 30 mg 11/27/22 10:00 Isosorbide Mononitrate 30 Mg Tab PO 12/27/22 09:59 DAILY [facility] Losartan Potassium 25 mg 11/27/22 10:00 Losartan Potassium 50 Mg Tablet PO 12/27/22 09:59 DAILY [facility] Metoprolol Succinate 50 mg 11/26/22 22:00 11/26/22 17:43 Metoprolol Succinate 50 Mg Tablet.Sa PO 12/26/22 21:59 Not Given HS [facility] Miscellaneous Information 1 each 11/26/22 17:45 Medication Intervention 1 Each Each 12/26/22 17:44 .RN TO CHECK [facility] Miscellaneous Information 1 each 11/26/22 17:45 Medication Intervention 1 Each Each 12/26/22 17:44 .RN TO CHECK [facility] Montelukast Sodium 10 mg 11/27/22 10:00 Montelukast Sodium 10 Mg Tablet PO 12/27/22 09:59 DAILY [facility] Multivitamins Therapeutic 1 tab 11/27/22 10:00 Multivitamins,Therapeutic 1 Tab Tab PO 12/27/22 09:59 DAILY [facility] Nitroglycerin 0.4 mg 11/26/22 17:14 Nitroglycerin 0.4 Mg Tablet Bottle SL 12/26/22 17:13 Q5MIN PRN MR X 3 PRN PAIN Olanzapine 5 mg 11/26/22 22:00 Olanzapine 5 Mg Tab PO 12/26/22 21:59 BID [facility] Ondansetron HCl 4 mg 11/26/22 16:41 Ondansetron Hcl 4 Mg/2 Ml Vial IV 12/26/22 16:40 Q6H PRN PRN NAUSEA/VOMITING Potassium Chloride 50 meq 11/27/22 10:00 Potassium Chloride Tab 10 Meq Tab PO 12/27/22 09:59 DAILY [facility] Tamsulosin HCl 0.4 mg 11/26/22 22:00 Tamsulosin Hcl 0.4 Mg Cap PO 12/26/22 21:59 HS [facility] Trazodone HCl 100 mg 11/26/22 22:00 Trazodone Hcl 50 Mg Tablet PO 12/26/22 21:59 HS [facility] Discontinued Medications Generic Name Dose Route Start Last Admin Trade Name Freq PRN Reason Stop Dose Admin Bumetanide 1 mg 11/26/22 14:26 11/26/22 15:40 Bumetanide 0.25 Mg/Ml 4ml Vial IV 11/26/22 14:27 1 mg STAT ONE Administration Bumetanide Confirm 11/26/22 15:40 Bumetanide 0.25 Mg/Ml 4ml Vial Administered 11/26/22 15:41 Dose 1 mg .ROUTE .STK-MED ONE Ceftriaxone Sodium/Dextrose 1 g in 50 mls @ 100 mls/hr 11/26/22 15:54 11/26/22 16:32 Rocephin 1 Gm-D5w 50 Ml Bag IV 11/26/22 16:23 Infused STAT STA Infusion Ceftriaxone Sodium/Dextrose Confirm 11/26/22 15:58 Rocephin 1 Gm-D5w 50 Ml Bag Administered 11/26/22 15:59 Dose 1 g in 50 mls @ ud IV .STK-MED ONE Intake & Output (Last 24 hours) 11/24/22 11/25/22 11/26/22 11/27/22 11:59 11:59 11:59 11:59 Intake Total 420 Output Total 2000 Balance -1580 Weight 96 kg Microbiology Results (Last 24 hours) 11/26/22 13:25 Blood Blood Culture - Pending 11/26/22 13:20 Blood Blood Culture - Pending Laboratory Results (Last 24 hours) 11/26/22 11/26/22 11/26/22 17:55 13:20 13:20 WBC RBC Hgb Hct MCV MCH MCHC RDW Plt Count MPV Gran % Immature Gran % (Auto) Nucleat RBC Rel Count Eos # (Auto) Immature Gran # (Auto) Absolute Lymphs (auto) Absolute Monos (auto) Absolute Nucleated RBC Lymphocytes % Monocytes % Eosinophils % Basophils % Absolute Granulocytes Basophils # PT INR Puncture Site pCO2 pO2 Base Excess O2 Saturation ABG pH ABG HCO3 ABG O2 Sat (Measured) Oral Test A-a Gradient a/A Ratio Hemoglobin Carboxyhemoglobin Methemoglobin Potassium Temperature POC O2 Flow Rate Sodium Chloride Carbon Dioxide Anion Gap BUN Creatinine Estimated GFR Glucose Lactic Acid Calcium Magnesium Total Bilirubin AST ALT Alkaline Phosphatase Troponin I < 0.012 < 0.012 NT-Pro-B Natriuret Pep Serum Total Protein Albumin Procalcitonin 0.098 H Monoscreen Influenza Type A Ag Influenza Type B Ag RSV (PCR) SARS-CoV-2 (PCR) 11/26/22 11/26/22 11/26/22 13:08 13:08 13:08 WBC RBC Hgb Hct MCV MCH MCHC RDW Plt Count MPV Gran % Immature Gran % (Auto) Nucleat RBC Rel Count Eos # (Auto) Immature Gran # (Auto) Absolute Lymphs (auto) Absolute Monos (auto) Absolute Nucleated RBC Lymphocytes % Monocytes % Eosinophils % Basophils % Absolute Granulocytes Basophils # PT 9.8 INR 0.89 Puncture Site pCO2 pO2 Base Excess O2 Saturation ABG pH ABG HCO3 ABG O2 Sat (Measured) Oral Test A-a Gradient a/A Ratio Hemoglobin Carboxyhemoglobin Methemoglobin Potassium Temperature POC O2 Flow Rate Sodium Chloride Carbon Dioxide Anion Gap BUN Creatinine Estimated GFR Glucose Lactic Acid Calcium Magnesium Total Bilirubin AST ALT Alkaline Phosphatase Troponin I NT-Pro-B Natriuret Pep Serum Total Protein Albumin Procalcitonin Monoscreen NEGATIVE Influenza Type A Ag NEGATIVE Influenza Type B Ag NEGATIVE RSV (PCR) NEGATIVE SARS-CoV-2 (PCR) NEGATIVE 11/26/22 11/26/22 11/26/22 13:08 13:08 12:53 WBC 18.0 H RBC 3.73 L Hgb 11.6 L Hct 36.0 MCV 96.5 MCH 31.1 MCHC 32.2 RDW 13.2 Plt Count 216 MPV 10.1 Gran % 82.6 H Immature Gran % (Auto) 0.6 H Nucleat RBC Rel Count 0.0 Eos # (Auto) 0.25 Immature Gran # (Auto) 0.10 H Absolute Lymphs (auto) 1.64 Absolute Monos (auto) 1.08 Absolute Nucleated RBC 0.00 Lymphocytes % 9.1 L Monocytes % 6.0 Eosinophils % 1.4 Basophils % 0.3 Absolute Granulocytes 14.88 H Basophils # 0.06 PT INR Puncture Site pCO2 pO2 Base Excess O2 Saturation ABG pH ABG HCO3 ABG O2 Sat (Measured) Oral Test A-a Gradient a/A Ratio Hemoglobin Carboxyhemoglobin Methemoglobin Potassium 4.9 Temperature POC O2 Flow Rate Sodium 140 Chloride 101 Carbon Dioxide 30 Anion Gap 14.3 BUN 27 H Creatinine 1.90 H Estimated GFR 27.5 Glucose 193 H Lactic Acid 1.4 Calcium 9.1 Magnesium 2.4 H Total Bilirubin 0.40 AST 24 ALT 19 Alkaline Phosphatase 122 Troponin I NT-Pro-B Natriuret Pep 1010 Serum Total Protein 7.2 Albumin 3.9 Procalcitonin Monoscreen Influenza Type A Ag Influenza Type B Ag RSV (PCR) SARS-CoV-2 (PCR) 11/26/22 12:52 WBC RBC Hgb Hct MCV MCH MCHC RDW Plt Count MPV Gran % Immature Gran % (Auto) Nucleat RBC Rel Count Eos # (Auto) Immature Gran # (Auto) Absolute Lymphs (auto) Absolute Monos (auto) Absolute Nucleated RBC Lymphocytes % Monocytes % Eosinophils % Basophils % Absolute Granulocytes Basophils # PT INR Puncture Site RIGHT BRACHIAL pCO2 41 pO2 71 L Base Excess 4.9 H O2 Saturation 95.2 ABG pH 7.46 H ABG HCO3 29.2 H* ABG O2 Sat (Measured) 96.6 Oral Test NOT APPLICABLE A-a Gradient 27 a/A Ratio 0.72 Hemoglobin 12.6 Carboxyhemoglobin 1.2 Methemoglobin 0.2 L Potassium 4.6 Temperature 37.0 POC O2 Flow Rate 21 Sodium Chloride Carbon Dioxide Anion Gap BUN Creatinine Estimated GFR Glucose Lactic Acid Calcium Magnesium Total Bilirubin AST ALT Alkaline Phosphatase Troponin I NT-Pro-B Natriuret Pep Serum Total Protein Albumin Procalcitonin Monoscreen Influenza Type A Ag Influenza Type B Ag RSV (PCR) SARS-CoV-2 (PCR) Orders (Last 24 hours) Category Date Time Status Bedrest TOLERATED Activity 11/26/22 16:41 Active Web User Experience Strategist STAT Care 11/26/22 12:52 Completed Code Status Order ROUTINE Care 11/26/22 16:41 Active EKG-ER Only STAT Care 11/26/22 12:52 Completed Elevate HOB TOLERATED Care 11/26/22 16:41 Active IV Insertion STAT Care 11/26/22 12:52 Completed POCT Glucose Check ACHS Care 11/26/22 18:[address] in Observation ROUTINE Care 11/26/22 16:41 Active Pulse Oximetry (ED) STAT Care 11/26/22 12:52 Completed Telemetry PROTOCOL Care 11/26/22 16:41 Active Weight,Daily 0600 Care 11/26/22 16:41 Active Consistent Carbohydrate Diet 2000 Calorie Diet 11/26/22 Dinner Active CHEST WITHOUT CONTRAST [CT] Stat Exams 11/26/22 13:44 Completed ARTERIAL BLOOD GASES Urgent Lab 11/26/22 12:52 Completed BLOOD CULTURE Stat Lab 11/26/22 13:25 Received CBC W DIFF AM.LAB Lab 11/27/22 04:00 Ordered CBC W DIFF Stat Lab 11/26/22 13:08 Completed CMP AM.LAB Lab 11/27/22 04:00 Ordered CMP Stat Lab 11/26/22 13:08 Completed COVID/FLU/RSV Panel Stat Lab 11/26/22 13:08 Completed Lactic Acid Stat Lab 11/26/22 12:53 Completed MAGNESIUM Stat Lab 11/26/22 13:08 Completed MONO SCREEN Stat Lab 11/26/22 13:08 Completed NT PRO BNPII AM.LAB Lab 11/27/22 04:00 Ordered NT PRO BNPII Stat Lab 11/26/22 13:08 Completed PROCALCITONIN Stat Lab 11/26/22 13:20 Completed PROTIME WITH INR Stat Lab 11/26/22 13:08 Completed TROPONIN Q4H Lab 11/26/22 13:20 Completed TROPONIN Q4H Lab 11/26/22 17:55 Completed TROPONIN Q4H Lab 11/26/22 21:45 Ordered Acetaminophen 325 mg [Tylenol 325 mg] Med 11/26/22 22:00 Active 650 mg PO BID Acetaminophen 325 mg [Tylenol 325 mg] Med 11/26/22 16:41 Active 650 mg PO Q4H PRN PRN Allopurinol 300 mg [Zyloprim 300 mg] Med 11/26/22 22:00 Active 300 mg PO HS Amlodipine Besylate 5 mg [Norvasc 5 mg] Med 11/27/22 10:00 Active 10 mg PO DAILY Aspirin EC 81 mg [Ecotrin 81 mg] Med 11/26/22 22:00 Active 81 mg PO HS Azithromycin 500 mg/250 ml [Zithromax 500 MG/ 250 ML Med 11/26/22 17:00 Active NaCl Premix] 500 mg in 250 ml IV Q24H10 Bumetanide 1 mg [Bumex 1 mg] Med 11/26/22 15:40 Discontinued 1 mg .ROUTE .STK-MED ONE Bumetanide 1 mg [Bumex 1 mg] Med 11/26/22 14:26 Discontinued 1 mg IV STAT ONE Bumetanide 1 mg [Bumex 1 mg] Med 11/27/22 10:00 Active 2 mg PO DAILY Ceftriaxone 1 GM/50 ML PREMIX* [ROCEPHIN 1 Gm-D5w 50 ml Med 11/27/22 10:00 Active Bag] 1 g in 50 ml IV Q24H10 Ceftriaxone 1 GM/50 ML PREMIX* [ROCEPHIN 1 Gm-D5w 50 ml Med 11/26/22 15:54 Discontinued Bag] 1 g in 50 ml IV STAT Ceftriaxone 1 GM/50 ML PREMIX* [ROCEPHIN 1 Gm-D5w 50 ml Med 11/26/22 15:58 Discontinued Bag] 1 g in 50 ml IV UD Cholecalciferol (Vitamin D3) [Vitamin D] Med 11/27/22 10:00 Active 2,000 unit PO MoWeFr Clopidogrel Bisulfate [PLAVIX Tablet] Med 11/27/22 10:00 Active 75 mg PO DAILY Cyanocobalamin 500 Mcg [Vitamin B-12 500 MCG] Med 11/27/22 10:00 Active 1,000 mcg PO DAILY Duloxetine HCl 30 mg [Cymbalta 30 MG Capsule] Med 11/27/22 10:00 Active 60 mg PO DAILY Gabapentin [Neurontin ] Med 11/26/22 22:00 Active 600 mg PO TID Glimepiride 4 mg [Amaryl 4 mg] Med 11/27/22 08:00 Active 4 mg PO BREAKFAST Insulin Glargine [Lantus Insulin] Med 11/27/22 10:00 Active 6 unit SQ DAILY Insulin Lispro [Humalog] Med 11/27/22 12:00 Active 3 unit SQ LUNCH Insulin Lispro [Humalog] Med 11/26/22 17:30 Active 6 unit SQ DINNER Insulin Lispro [Humalog] Med 11/27/22 08:00 Active 8 unit SQ BREAKFAST Insulin Regular, Human [Humulin R] Med 11/26/22 16:41 Active See Dose Instructions SQ UD PRN Isosorbide Mononitrate 30 mg [Imdur 30 MG] Med 11/27/22 10:00 Active 30 mg PO DAILY Losartan Potassium 50 mg [Cozaar 50 MG] Med 11/27/22 10:00 Active 25 mg PO DAILY Medication Intervention Med 11/26/22 17:45 Active 1 each MC .RN TO CHECK Medication Intervention Med 11/26/22 17:45 Active 1 each MC .RN TO CHECK Metoprolol Succinate 50 mg [Toprol Xl 50 MG] Med 11/26/22 22:00 Active 50 mg PO HS Montelukast Sodium 10 mg [Singulair 10 MG] Med 11/27/22 10:00 Active 10 mg PO DAILY Multivitamins,Therapeutic Tab* [Theragran Multivitamin* Med 11/27/22 10:00 Active ] 1 tab PO DAILY Nitroglycerin 0.4 mg Tablet [Nitrostat 0.4 MG Tablet Med 11/26/22 17:14 Active ] 0.4 mg SL Q5MIN PRN MR X 3 PRN Olanzapine 5 mg [zyPREXA 5MG TABLET] Med 11/26/22 22:00 Active 5 mg PO BID Ondansetron HCl 4 mg/2 ml [Zofran 4 MG/2 ML VIAL] Med 11/26/22 16:41 Active 4 mg IV Q6H PRN PRN Potassium Chloride Tab* [Klor Con] Med 11/27/22 10:00 Active 50 meq PO DAILY Tamsulosin HCl 0.4 mg [Flomax 0.4 MG] Med 11/26/22 22:00 Active 0.4 mg PO HS Trazodone HCl 50 mg [Desyrel 50 mg] Med 11/26/22 22:00 Active 100 mg PO HS EKG REPEAT IN AM RT 11/26/22 16:41 Active Oxygen Nasal Cannula 2 lpm RT 11/26/22 16:41 Completed Pulse Oximetry ROUTINE RT 11/26/22 16:41 Completed Respiratory Therapy Consult ROUTINE RT 11/26/22 16:41 Completed Transfer Order Routine Transfer 11/26/22 Completed Patient Care Notes (Last 24 hours) 11/26/22 17:44 Nursing Note by Lelo Chappell REVIEWED HOME MEDICATION LIST WITH DR. MARTIN. STATES TO CONTINUE ALL HOME MEDS. UPDATED PATIENTS OF THE TWO NON-FORMULARY MEDS: REPATHA AND GEMTESA. STATES PT WILL NOT NEED REPATHA NEXT DOSE ISNT DUE UNTIL NEXT WEEK AND THAT HE WILL BRING IN GEMTESA. Initialized on 11/26/22 17:44 - END OF NOTE Code(s): J18.9 - PNEUMONIA, UNSPECIFIED ORGANISM (2) CHF (congestive heart failure) Current Visit: Yes Status: Acute Code(s): I50.9 - HEART FAILURE, UNSPECIFIED (3) Generalized weakness Current Visit: Yes Status: Acute Code(s): R53.1 - WEAKNESS
[2022-11-26] MEDS: DESYREL 50 MG PO SCH (21:31)
[2022-11-26] MEDS: NEURONTIN PO SCH (21:31)
[2022-11-26] MEDS: Flomax 0.4 MG PO SCH (21:31)
[2022-11-26] MEDS: zyPREXA 5MG TABLET PO SCH (21:31)
[2022-11-26] MEDS: ECOTRIN 81 MG PO SCH (21:31)
[2022-11-26] MEDS: TYLENOL 325 MG PO SCH (21:32)
[2022-11-26] MEDS: HUMULIN R SQ PRN (21:38)
[2022-11-26] MEDS ORDERED: NON-FORMULARY ITEM (Acetaminophen [Tylenol Arthritis] 650 MG Tablet.Er) PO SCH (22:00)
[2022-11-26] MEDS ORDERED: NON-FORMULARY ITEM (Gabapentin [Neurontin] 600 MG Tablet) PO SCH (22:00)
[2022-11-27 04:45] LABS: Absolute Neutrophil Ct (ANC) 6.57 x10^3/uL (1.4-6.9); BASOPHIL % 0.4 % (0.0-0.4); Basophil (Absolute #) 0.04 x10^3/uL (0-0.4); Eosinophil % 2.8 % (0.00-5.0); Hematocrit 29.6 % (35-47); Hemoglobin 9.8 g/dL (12.0-16.0); IMMATURE GRAN # 0.05 x10^3u/L (0.00-0.03); IMMATURE GRAN % 0.5 % (0.00-0.4); Lymphocyte (Absolute #) 3.05 x10^3/uL (1.0-4.6); Mean Cell Volume 95.2 fL (78-100); Mean Corpuscular Hemoglobin 31.5 pg (26-32); Mean Corpuscular Hgb Concent. 33.1 g/dL (32-36); Mean Platelet Volume 10.1 fL (7.5-11.0); Monocyte (Absolute #) 0.87 x10^3/uL (0.0-1.3); Neutrophil % 60.3 % (36.0-66.0); Platelet Count 176 x10^3/uL (150-450); Red Blood Count 3.11 x10^6/uL (4.1-5.4); Red Cell Distribution Width 13.2 % (11.5-14.0); White Blood Count 10.9 x10^3/uL (4.0-10.5)
[2022-11-27 05:09] LABS: ALBUMIN 3.1 g/dL (3.5-5.0); BILIRUBIN,TOTAL 0.4 mg/dL (0.2-1.3); Calcium 8.4 mg/dL (8.4-10.2); Creatinine 1 1.68 mg/dL (0.52-1.04); EST GLOMERULAR FILTRATION RATE 31.7 ML/MIN; Total Protein 6.1 g/dL (6.3-8.2)
[2022-11-27] MEDS: HUMALOG SQ SCH ×2 (08:22→17:28)
[2022-11-27] MEDS: Cymbalta 30 MG Capsule PO SCH (09:43)
[2022-11-27] MEDS: Klor Con PO SCH (09:43)
[2022-11-27] MEDS: NEURONTIN PO SCH ×3 (09:43→22:25)
[2022-11-27] MEDS: Imdur 30 MG PO SCH (09:43)
[2022-11-27] MEDS: Vitamin B-12 500 MCG PO SCH (09:43)
[2022-11-27] MEDS: NORVASC 5 MG PO SCH (09:44)
[2022-11-27] MEDS: TYLENOL 325 MG PO SCH ×2 (09:44→22:26)
[2022-11-27] MEDS: Singulair 10 MG PO SCH (09:44)
[2022-11-27] MEDS: Cozaar 50 MG PO SCH (09:44)
[2022-11-27] MEDS: BUMEX 1 MG PO SCH (09:44)
[2022-11-27] MEDS: zyPREXA 5MG TABLET PO SCH ×2 (09:44→22:26)
[2022-11-27] MEDS: ROCEPHIN 1 Gm-D5w 50 ml Bag** 1 G/50 ML IVPB IV SCH (09:45)
[2022-11-27] MEDS: PLAVIX Tablet PO SCH (09:45)
[2022-11-27] MEDS: Lantus Insulin SQ SCH (09:45)
[2022-11-27] MEDS: THERAGRAN MULTIVITAMIN PO SCH (09:45)
[2022-11-27] MEDS: Zithromax 500 MG/ 250 ML NaCl Premix 500 MG/250 ML IVPB IV SCH (09:45)
[2022-11-27] MEDS: AMARYL 4 MG PO SCH (09:45)
[2022-11-27] MEDS ORDERED: NON-FORMULARY ITEM (Duloxetine Hcl [Cymbalta] 60 MG Capsule.Dr) PO SCH (10:00)
[2022-11-27] MEDS ORDERED: NON-FORMULARY ITEM (Vibegron [Gemtesa] 75 MG Tablet) PO SCH (10:00)
[2022-11-27] MEDS ORDERED: NON-FORMULARY ITEM (Losartan Potassium [Losartan Potassium] 25 MG Tablet) PO SCH (10:00)
[2022-11-27] MEDS ORDERED: NON-FORMULARY ITEM (Multivitamin [Multi-Vitamin Daily] 1 EACH Tablet) PO SCH (10:00)
[2022-11-27] MEDS ORDERED: NON-FORMULARY ITEM (Insulin Glargine,Hum.Rec.Anlog [Basaglar Kwikpen U-100] 100 UNIT/ML In SQ SCH (10:00)
[2022-11-27] MEDS ORDERED: NON-FORMULARY ITEM (Cyanocobalamin (Vitamin B-12) [B-12] 1,000 MCG Tablet) PO SCH (10:00)
[2022-11-27] MEDS ORDERED: NON-FORMULARY ITEM (Amlodipine Besylate [Amlodipine Besylate] 10 MG Tablet) PO SCH (10:00)
[2022-11-27] MEDS ORDERED: NON-FORMULARY ITEM (Bumetanide [Bumex] 2 MG Tablet) PO SCH (10:00)
[2022-11-27] MEDS ORDERED: VITAMIN D PO SCH (10:00)
[2022-11-27] MEDS ORDERED: HUMALOG SQ SCH (12:00)
[2022-11-27] MEDS: Mucinex 600MG ER Tabs PO SCH ×2 (15:55→22:26)
[2022-11-27] MEDS: Bactroban OINTMENT TP SCH ×2 (17:31→22:37)
[2022-11-27] MEDS: Toprol Xl 50 MG PO SCH (22:25)
[2022-11-27] MEDS: Flomax 0.4 MG PO SCH (22:25)
[2022-11-27] MEDS: ECOTRIN 81 MG PO SCH (22:25)
[2022-11-27] MEDS: DESYREL 50 MG PO SCH (22:25)
[2022-11-27] MEDS: ZYLOPRIM 300 MG PO SCH (22:26)
[2022-11-27] MEDS: HUMULIN R SQ PRN (22:26)
[2022-11-28 05:16] LABS: Hematocrit 33.5 % (35-47); Hemoglobin 11.2 g/dL (12.0-16.0); Mean Cell Volume 94.1 fL (78-100); Mean Corpuscular Hemoglobin 31.5 pg (26-32); Mean Corpuscular Hgb Concent. 33.4 g/dL (32-36); Mean Platelet Volume 10.2 fL (7.5-11.0); Platelet Count 205 x10^3/uL (150-450); Red Blood Count 3.56 x10^6/uL (4.1-5.4); Red Cell Distribution Width 12.9 % (11.5-14.0); White Blood Count 10.1 x10^3/uL (4.0-10.5)
[2022-11-28 05:42] LABS: ALBUMIN 3.7 g/dL (3.5-5.0); ANION GAP 13.8 MEQ/L (5-15); BILIRUBIN,TOTAL 0.4 mg/dL (0.2-1.3); Calcium 8.8 mg/dL (8.4-10.2); Creatinine 1 1.64 mg/dL (0.52-1.04); EST GLOMERULAR FILTRATION RATE 32.6 ML/MIN
[2022-11-28 07:35] VITALS: BP 142/68
[2022-11-28 08:16] VITALS: PULSE 75; O2SAT 93
[2022-11-28] MEDS: HUMALOG SQ SCH (08:34)
[2022-11-28] MEDS: AMARYL 4 MG PO SCH (08:34)
--- NOTE | 2022-11-28 08:34 | XRAY ---
Indication: Pneumonia. Comparison: March 04, 2020 Portable chest remains clear again with chronic mild right hemidiaphragm elevation. Heart not enlarged again with aortic valve replacement. Bony thorax intact again with osteopenia and mild degenerative changes. Impression: Continued nonacute chest with chronic features.
[2022-11-28] MEDS: ROCEPHIN 1 Gm-D5w 50 ml Bag** 1 G/50 ML IVPB IV SCH (09:01)
[2022-11-28] MEDS: BUMEX 1 MG PO SCH (09:02)
[2022-11-28] MEDS: Cymbalta 30 MG Capsule PO SCH (09:02)
[2022-11-28] MEDS: NORVASC 5 MG PO SCH (09:02)
[2022-11-28] MEDS: Zithromax 500 MG/ 250 ML NaCl Premix 500 MG/250 ML IVPB IV SCH (09:02)
[2022-11-28] MEDS: Klor Con PO SCH (09:02)
[2022-11-28] MEDS: NEURONTIN PO SCH (09:02)
[2022-11-28] MEDS: Vitamin B-12 500 MCG PO SCH (09:02)
[2022-11-28] MEDS: Singulair 10 MG PO SCH (09:03)
[2022-11-28] MEDS: THERAGRAN MULTIVITAMIN PO SCH (09:03)
[2022-11-28] MEDS: Cozaar 50 MG PO SCH (09:03)
[2022-11-28] MEDS: zyPREXA 5MG TABLET PO SCH (09:03)
[2022-11-28] MEDS: TYLENOL 325 MG PO SCH (09:03)
[2022-11-28] MEDS: PLAVIX Tablet PO SCH (09:03)
[2022-11-28] MEDS: Imdur 30 MG PO SCH (09:03)
[2022-11-28] MEDS: Mucinex 600MG ER Tabs PO SCH (09:03)
[2022-11-28] MEDS: Lantus Insulin SQ SCH (10:58)
[2022-11-28] MEDS: Bactroban OINTMENT TP SCH (10:58)
[2022-11-28] MEDS ORDERED: PATIENT OWN MEDICATION PO SCH (11:00)
--- NOTE | 2022-11-28 23:24 | PCM.DS ---
Discharge Summary Date of Admission: 11/26/22 16:30 Admitting Physician: SONIA MARTIN Primary Care Provider: SONIA MARTIN Allergies Allergies hydromorphone [From Dilaudid] Allergy (Severe, Verified 11/26/22 13:24) Difficulty Breathing meclofenamic acid [From Meclomen] Allergy (Severe, Verified 11/26/22 13:24) Skin Irritation morphine Allergy (Severe, Verified 11/26/22 13:24) Difficulty Breathing Sulfa (Sulfonamide Antibiotics) Allergy (Severe, Verified 11/26/22 13:24) Extreme constipation ciprofloxacin [From Cipro] Allergy (Intermediate, Verified 11/26/22 13:24) Itching diphenhydramine [From Benadryl] Allergy (Intermediate, Verified 11/26/22 13:24) Swelling of Tongue and Lips pt unable to take po due to swelling of tongue and lips. Can take IM. Hospital Summary - Hospital Course Hospital Course: Chief Complaint Diagnosis weakness and short of breath for 3 days Allergies Allergy/AdvReac Type Severity Reaction Status Date / Time hydromorphone [From Dilaudid] Allergy Severe Difficulty Verified 11/26/22 13:24 Breathing meclofenamic acid Allergy Severe Skin Verified 11/26/22 13:24 [From Meclomen] Irritation morphine Allergy Severe Difficulty Verified 11/26/22 13:24 Breathing Sulfa (Sulfonamide Allergy Severe Verified 11/26/22 13:24 Antibiotics) ciprofloxacin [From Cipro] Allergy Intermediate Itching Verified 11/26/22 13:24 diphenhydramine Allergy Intermediate Swelling Verified 11/26/22 13:24 [From Benadryl] of Tongue and Lips Vital Signs (Last 24 hours) Temp Pulse Resp BP Pulse Ox 11/28/22 08:00 97.1 F 75 12 93 L 11/28/22 07:34 142/68 11/28/22 04:00 96.9 F 71 16 155/69 95 11/28/22 00:00 97.1 F 79 16 197/82 96 Home Medications Medication Instructions Recorded Confirmed Last Taken Type Acetaminophen [Tylenol Arthritis] 650 mg PO BID 11/26/22 11/26/22 Unknown History Montelukast Sodium 10 mg 1 tab PO DAILY 11/26/22 11/26/22 Unknown History [Singulair 10 MG] Tamsulosin HCl 0.4 mg [Flomax 1 cap PO HS 11/26/22 11/26/22 Unknown History 0.4 MG] Vibegron [Gemtesa] 1 tab PO DAILY 11/26/22 11/26/22 Unknown History Cephalexin Mh 500 mg [Keflex 500 500 mg PO QID #28 cap 11/28/22 Unknown Rx mg] Guaifenesin 600 mg ER [Mucinex 600 mg PO BID 6 Days #12 tablet 11/28/22 Unkn own Rx 600MG ER Tabs] Mupirocin [Bactroban 0 gm TP TID 11/28/22 Unknown Rx OINTMENT] Current Medications Discontinued Medications Generic Name Dose Route Start Last Admin Trade Name Freq PRN Reason Stop Dose Admin Acetaminophen 650 mg 11/26/22 16:41 Acetaminophen 325 Mg Tablet PO 12/26/22 16:40 Q4H PRN PRN PAIN, FEVER, HEADACHE Acetaminophen 650 mg 11/26/22 22:00 11/28/22 09:03 Acetaminophen 325 Mg Tablet PO 12/26/22 21:59 650 mg BID CESAR Administration Allopurinol 300 mg 11/26/22 22:00 11/27/22 22:26 Allopurinol 300 Mg Tablet PO 12/26/22 21:59 300 mg HS CESAR Administration Amlodipine Besylate 10 mg 11/27/22 10:00 11/28/22 09:02 Amlodipine Besylate 5 Mg Tablet PO 12/27/22 09:59 10 mg DAILY CESAR Administration Aspirin 81 mg 11/26/22 22:00 11/27/22 22:25 Aspirin 81 Mg Tablet.Ec PO 12/26/22 21:59 81 mg HS CESAR Administration Bumetanide 1 mg 11/26/22 14:26 11/26/22 15:40 Bumetanide 0.25 Mg/Ml 4ml Vial IV 11/26/22 14:27 1 mg STAT ONE Administration Bumetanide Confirm 11/26/22 15:40 Bumetanide 0.25 Mg/Ml 4ml Vial Administered 11/26/22 15:41 Dose 1 mg .ROUTE .STK-MED ONE Bumetanide 2 mg 11/27/22 10:00 11/28/22 09:02 Bumetanide 1 Mg Tablet PO 12/27/22 09:59 2 mg DAILY CESAR Administration Cholecalciferol 2,000 unit 11/27/22 10:00 11/27/22 12:33 Cholecalciferol (Vitamin D3) 1000 Unit Tablet PO 12/27/22 09:59 2,000 unit MoWeFr CESAR Administration Clopidogrel Bisulfate 75 mg 11/27/22 10:00 11/28/22 09:03 Clopidogrel Bisulfate 75 Mg Tablet PO 12/27/22 09:59 75 mg DAILY CESAR Administration Cyanocobalamin 1,000 mcg 11/27/22 10:00 11/28/22 09:02 Cyanocobalamin 500 Mcg Tablet PO 12/27/22 09:59 1,000 mcg DAILY CESAR Administration Duloxetine HCl 60 mg 11/27/22 10:00 11/28/22 09:02 Duloxetine Hcl 30 Mg Cap PO 12/27/22 09:59 60 mg DAILY CESAR Administration Gabapentin 600 mg 11/26/22 22:00 11/28/22 09:02 Gabapentin 300 Mg Capsule PO 12/26/22 21:59 600 mg TID CESAR Administration Glimepiride 4 mg 11/27/22 08:00 11/28/22 08:34 Glimepiride 4 Mg Tablet PO 12/27/22 07:59 4 mg BREAKFAST CESAR Administration Guaifenesin 600 mg 11/27/22 15:00 11/28/22 09:03 Guaifenesin 600 Mg Tablet Er PO 12/27/22 14:59 600 mg BID CESAR Administration Ceftriaxone Sodium/Dextrose 1 g in 50 mls @ 100 mls/hr 11/26/22 15:54 11/26/22 16:32 Rocephin 1 Gm-D5w 50 Ml Bag IV 11/26/22 16:23 Infused STAT STA Infusion Ceftriaxone Sodium/Dextrose Confirm 11/26/22 15:58 Rocephin 1 Gm-D5w 50 Ml Bag Administered 11/26/22 15:59 Dose 1 g in 50 mls @ ud IV .STK-MED ONE Azithromycin 500 mg in 250 mls @ 250 mls/hr 11/26/22 17:00 11/28/22 09:02 Zithromax 500 Mg/ 250 Ml Nacl Premix IV 12/26/22 16:59 250 mls/hr Q24H10 CESAR Administration Ceftriaxone Sodium/Dextrose 1 g in 50 mls @ 100 mls/hr 11/27/22 10:00 11/28/22 09:01 Rocephin 1 Gm-D5w 50 Ml Bag IV 11/30/22 09:59 100 mls/hr Q24H10 CESAR Administration Insulin Glargine 6 unit 11/27/22 10:00 11/28/22 10:58 Insulin Glargine 1 Unit SQ 12/27/22 09:59 6 unit DAILY CESAR Administration Insulin Human Lispro 8 unit 11/27/22 08:00 11/28/22 08:34 Insulin Lispro 1 Unit SQ 12/27/22 07:59 1 unit BREAKFAST CESAR Administration Insulin Human Lispro 3 unit 11/27/22 12:00 11/27/22 12:32 Insulin Lispro 1 Unit SQ 12/27/22 11:59 3 unit LUNCH CESAR Administration Insulin Human Lispro 6 unit 11/26/22 17:30 11/27/22 17:28 Insulin Lispro 1 Unit SQ 12/26/22 17:29 6 unit DINNER CESAR Administration Insulin Human Regular 0 unit 11/26/22 16:41 11/27/22 22:26 Insulin Regular, Human 1 Unit SQ 12/26/22 16:40 5 unit UD PRN Administration HYPERGLYCEMIA Isosorbide Mononitrate 30 mg 11/27/22 10:00 11/28/22 09:03 Isosorbide Mononitrate 30 Mg Tab PO 12/27/22 09:59 30 mg DAILY CESAR Administration Losartan Potassium 25 mg 11/27/22 10:00 11/28/22 09:03 Losartan Potassium 50 Mg Tablet PO 12/27/22 09:59 25 mg DAILY CESAR Administration Metoprolol Succinate 50 mg 11/26/22 22:00 11/27/22 22:25 Metoprolol Succinate 50 Mg Tablet.Sa PO 12/26/22 21:59 50 mg HS CESAR Administration Miscellaneous Information 1 each 11/26/22 17:45 Medication Intervention 1 Each Each 12/26/22 17:44 .RN TO CHECK CESAR Miscellaneous Information 1 each 11/26/22 17:45 Medication Intervention 1 Each Each 12/26/22 17:44 .RN TO CHECK CESAR Montelukast Sodium 10 mg 11/27/22 10:00 11/28/22 09:03 Montelukast Sodium 10 Mg Tablet PO 12/27/22 09:59 10 mg DAILY CESAR Administration Multivitamins Therapeutic 1 tab 11/27/22 10:00 11/28/22 09:03 Multivitamins,Therapeutic 1 Tab Tab PO 12/27/22 09:59 1 tab DAILY CESAR Administration Mupirocin 0 gm 11/27/22 17:30 11/28/22 10:58 Mupirocin 22 Gm Tube Ointment TP 12/27/22 17:29 1 gm TID CESAR Administration Nitroglycerin 0.4 mg 11/26/22 17:14 Nitroglycerin 0.4 Mg Tablet Bottle SL 12/26/22 17:13 Q5MIN PRN MR X 3 PRN PAIN Olanzapine 5 mg 11/26/22 22:00 11/28/22 09:03 Olanzapine 5 Mg Tab PO 12/26/22 21:59 5 mg BID CESAR Administration Ondansetron HCl 4 mg 11/26/22 16:41 Ondansetron Hcl 4 Mg/2 Ml Vial IV 12/26/22 16:40 Q6H PRN PRN NAUSEA/VOMITING Gemtesa 75mg Tablet 1 each 11/28/22 11:00 PO 12/28/22 10:59 DAILY CESAR Cymbalta Brand Name 1 each 11/29/22 10:00 60mg Capsule PO 12/29/22 09:59 DAILY CESAR Potassium Chloride 50 meq 11/27/22 10:00 11/28/22 09:02 Potassium Chloride Tab 10 Meq Tab PO 12/27/22 09:59 50 meq DAILY CESAR Administration Tamsulosin HCl 0.4 mg 11/26/22 22:00 11/27/22 22:25 Tamsulosin Hcl 0.4 Mg Cap PO 12/26/22 21:59 0.4 mg HS CESAR Administration Trazodone HCl 100 mg 11/26/22 22:00 11/27/22 22:25 Trazodone Hcl 50 Mg Tablet PO 12/26/22 21:59 100 mg HS CESAR Administration Intake & Output (Last 24 hours) 11/26/22 11/27/22 11/28/22 11/29/22 11:59 11:59 11:59 11:59 Intake Total 1860 2020 Output Total 2925 1800 Balance -1065 220 Weight 96.5 kg 97.6 kg Microbiology Results (Last 24 hours) 11/26/22 13:25 Blood Blood Culture - Preliminary 11/26/22 13:20 Blood Blood Culture - Preliminary Laboratory Results (Last 24 hours) 11/28/22 11/28/22 11/28/22 07:16 05:01 05:01 WBC 10.1 RBC 3.56 L Hgb 11.2 L Hct 33.5 L MCV 94.1 MCH 31.5 MCHC 33.4 RDW 12.9 Plt Count 205 MPV 10.2 Sodium 139 Potassium 4.0 Chloride 102 Carbon Dioxide 28 Anion Gap 13.8 BUN 25 H Creatinine 1.64 H Estimated GFR 32.6 Glucose 95 POC Glucometer 119 H Calcium 8.8 Total Bilirubin 0.40 AST 19 ALT 17 Alkaline Phosphatase 119 Serum Total Protein 7.0 Albumin 3.7 Orders (Last 24 hours) Category Date Time Status Discharge Routine Discharge 11/28/22 Ordered CHEST 1 VIEW (PORTABLE) Routine Exams 11/28/22 08:44 Completed CBC AM.LAB Lab 11/28/22 05:01 Completed CMP AM.LAB Lab 11/28/22 05:01 Completed POCT GLUCOSE Stat Lab 11/28/22 07:16 Completed Patient Own Med [Patient Own Medication] Med 11/28/22 11:00 Discontinued 1 each PO DAILY Patient Own Med [Patient Own Medication] Med 11/29/22 10:00 Discontinued 1 each PO DAILY Patient Care Notes (Last 24 hours) 11/28/22 12:41 (created 11/28/22 12:51) Nursing Note by Yvonne Martin faxed records to [facility] [employer] Initialized on 11/28/22 12:51 - END OF NOTE 11/28/22 12:36 Nursing Note by Yvonne Martin Notified [facility] [employer] that patient has dc'd. ([facility]) Initialized on 11/28/22 12:36 - END OF NOTE 11/28/22 10:09 Nursing Note by Lelo Chappell AM LABS AND CHEST X RAY RESULTS REPORTED TO DR. MARTIN. STATES PT NOVEMBER D/C HOME WITH HOME HEALTH CARE SERVICES AND A SCRIPT FOR MUCINEX 600MG PO BID X 6 DAYS AND KEFLEX 500MG PO QID X 7 DAYS. Initialized on 11/28/22 10:09 - END OF NOTE 11/28/22 08:17 Case Management Note by Ashley Kennedy S/W PATIENT- SHE DENIES ANY NEW NEEDS AT TIME OF DC. SHE PLANS TO RETURN HOME WITH HER AT TIME OF DC. C HAS ALSO BEEN SET UP. SHE REPORTS THEY HAVE ALREADY CONTACTED HER WELL. NO OTHER NEW NEEDS IDENTIFIED AT THIS TIME Initialized on 11/28/22 08:17 - END OF NOTE - Vitals & Intake/Output Vital Signs: Vital Signs Temperature 97.1 F 11/28/22 08:00 Pulse Rate 75 11/28/22 08:00 Respiratory Rate 12 11/28/22 08:00 Blood Pressure 142/68 11/28/22 07:34 O2 Sat by Pulse Oximetry 93 L 11/28/22 08:00 Intake & Output: Intake & Output 11/26/22 11/27/22 11/28/22 11/29/22 11:59 11:59 11:59 11:59 Intake Total 1860 2020 Output Total 2925 1800 Balance -1065 220 Weight 96.5 kg 97.6 kg - Lab Result Diagrams: 11/28/22 05:01 11/28/22 05:01 Lab Results-Last 24 Hrs: Lab Results-Last 24 Hours 11/28/22 11/28/22 11/28/22 Range/Units 05:01 05:01 07:16 WBC 10.1 (4.0-10.5) x10^3/uL RBC 3.56 L (4.1-5.4) x10^6/uL Hgb 11.2 L (12.0-16.0) g/dL Hct 33.5 L (35-47) % MCV 94.1 (78-100) fL MCH 31.5 (26-32) pg MCHC 33.4 (32-36) g/dL RDW 12.9 (11.5-14.0) % Plt Count 205 (150-450) x10^3/uL MPV 10.2 (7.5-11.0) fL Sodium 139 (137-145) mmol/L Potassium 4.0 (3.5-5.1) mmol/L Chloride 102 (98-107) mmol/L Carbon Dioxide 28 (22-30) mmol/L Anion Gap 13.8 (5-15) MEQ/L BUN 25 H (7-17) mg/dL Creatinine 1.64 H (0.52-1.04) mg/dL Estimated GFR 32.6 ML/MIN Glucose 95 (74-106) mg/dL POC Glucometer 119 H (74 to 106) mg/dL Calcium 8.8 (8.4-10.2) mg/dL Total Bilirubin 0.40 (0.2-1.3) mg/dL AST 19 (14-36) U/L ALT 17 (0-35) U/L Alkaline Phosphatase 119 (38-126) U/L Serum Total Protein 7.0 (6.3-8.2) g/dL Albumin 3.7 (3.5-5.0) g/dL Micro Results-Entire Visit: Microbiology 11/26/22 13:25 Blood Culture - Preliminary Blood 11/26/22 13:20 Blood Culture - Preliminary Blood Accuchecks Date 11/28/22 Time 08:13 - Radiology Exams Ordered Rad Exams-Entire Visit: Radiology Procedures Category Date Time Status CHEST 1 VIEW (PORTABLE) Routine Exams 11/28/22 08:44 Completed - Procedures and Test Procedures and Tests throughout Hospitalization: Therapy Orders & Screens 11/26/22 16:41 EKG REPEAT IN AM Comment: Oxygen Nasal Cannula 2 lpm Comment: Respiratory Therapy Consult ROUTINE Comment: Reason For Exam: Discharge Exam General Appearance: no apparent distress, alert Neurologic Exam: alert, oriented x 3, cooperative, normal mood/affect, nml cerebellar function, sensation nml, No motor deficits Eye Exam: PERRL, EOMI, eyes nml inspection Ears, Nose, Throat Exam: normal ENT inspection, pharynx normal, moist mucous membranes Neck Exam: normal inspection, non-tender, supple, full range of motion Respiratory Exam: normal breath sounds, lungs clear, No respiratory distress Cardiovascular Exam: regular rate/rhythm, normal heart sounds Gastrointestinal/Abdomen Exam: soft, No tenderness, No mass Pelvic Exam: deferred Rectal Exam: deferred Back Exam: normal inspection, normal range of motion, No CVA tenderness, No vertebral tenderness Extremity Exam: normal inspection, normal range of motion Skin Exam: normal color, warm, dry Final Diagnosis/Problem List - Final Discharge Diagnosis/Problem (1) Left lower lobe pneumonia Status: Acute Priority: High Code(s): J18.9 - PNEUMONIA, UNSPECIFIED ORGANISM (2) CHF (congestive heart failure) Status: Chronic Priority: High Code(s): I50.9 - HEART FAILURE, UNSPECIFIED (3) Generalized weakness Status: Chronic Code(s): R53.1 - WEAKNESS - Discharge Discharge Date: 11/28/22 Disposition: Home, Self-Care Condition: Stable Prescriptions: New Mupirocin [Bactroban OINTMENT] 0 gm TP TID Guaifenesin 600 mg ER [Mucinex 600MG ER Tabs] 600 mg PO BID 6 Days #12 tablet Cephalexin Mh 500 mg [Keflex 500 mg] 500 mg PO QID #28 cap Continue Multivitamin [Multi-Vitamin Daily] 1 each PO DAILY Trazodone HCl 50 mg [Desyrel 50 mg] 100 mg PO HS Duloxetine HCl [Cymbalta] 60 mg PO DAILY Gabapentin [Neurontin] 600 mg PO TID Potassium Chloride Tab* [Klor Con] 50 meq PO DAILY Isosorbide Mononitrate 30 mg [Imdur 30 MG] 30 mg PO DAILY Bumetanide [Bumex] 2 mg PO DAILY Nitroglycerin 0.4 mg Tablet [Nitrostat 0.4 MG Tablet] 0.4 mg SL Q5MIN PRN MR X 3 PRN PRN Reason: Pain Metoprolol Succinate 50 mg [Toprol Xl 50 MG] 50 mg PO HS Clopidogrel Bisulfate [PLAVIX Tablet] 75 mg PO DAILY allopurinoL [Zyloprim] 300 mg PO HS Insulin Lispro [Humalog] 0 unit SQ UD Glimepiride 4 mg [Amaryl 4 mg] 4 mg PO DAILY Aspirin 81 gm Chew [Baby Aspirin 81 mg Chew] 81 mg PO HS Losartan Potassium 25 mg PO DAILY OLANZapine [Olanzapine] 5 mg PO BID Amlodipine Besylate 10 mg PO DAILY Cholecalciferol (Vitamin D3) [Vitamin D3] 2,000 unit PO UD Evolocumab [Repatha Sureclick] 140 mg SQ UD Insulin Glargine,Hum.rec.anlog [Basaglar Kwikpen U-100] 6 unit SQ DAILY Cyanocobalamin (Vitamin B-12) [B-12] 1,000 mcg PO DAILY Vibegron [Gemtesa] 1 tab PO DAILY Montelukast Sodium 10 mg [Singulair 10 MG] 1 tab PO DAILY Tamsulosin HCl 0.4 mg [Flomax 0.4 MG] 1 cap PO HS Acetaminophen [Tylenol Arthritis] 650 mg PO BID Instructions: Pneumonia, Adult (DC) Additional Instructions: REFERRAL WAS SENT TO [facility]. THEY WILL CONTACT YOU TO ARRANGE AN APPOINTMENT TO SEE YOU. YOU CAN REACH THEM AT [phone]. Follow up with: SONIA MARTIN MD [Primary Care Provider] - 12/05/22 11:15 am ([place] Office) Forms: Discharge Instructions
[2022-11-29] MEDS ORDERED: PATIENT OWN MEDICATION PO SCH (10:00)
== END 2022-11-28 11:43 | disposition home or self-care (01) ==
LOC: ED 12:48 → MED SURG 16:30
PROVIDERS: ADMIT General Practice; ATTEND General Practice
DX: J18.9 Pneumonia, unspecified organism (principal); E11.22 Type 2 diabetes mellitus with diabetic chronic kidney disease; I13.0 Hypertensive heart and chronic kidney disease with heart failure and stage 1 through stage 4 chronic kidney disease, or unspecified chronic kidney disease; I50.9 Heart failure, unspecified; N18.4 Chronic kidney disease, stage 4 (severe); I25.10 Atherosclerotic heart disease of native coronary artery without angina pectoris; E78.5 Hyperlipidemia, unspecified; R53.1 Weakness; Z79.01 Long term (current) use of anticoagulants; Z79.899 Other long term (current) drug therapy; Z20.828 Contact with and (suspected) exposure to other viral communicable diseases; Z85.3 Personal history of malignant neoplasm of breast
CPT/HCPCS: 0241U; 36415; 36600; 51702; 71045; 71250; 80053; 82375; 82803; 82947; 83036; 83605; 83735; 83880; 84145; 84484; 85025; 85027; 85610; 86308; 87040; 93005; 93041; 94760; 96365; 96374; 99285; 93268; J0456; J0696; J1815; J1817; A9270-GY; G0378

== ENCOUNTER 2023-01-04 14:44 | Observation (INO) | payer MEDICARE ==
--- NOTE | 2023-01-04 15:33 | ERPHSYRPT ---
- History of Present Illness Time Seen by Provider: 01/04/23 15:28 Source: patient, family Exam Limitations: no limitations Patient Subjective Stated Complaint: Pt states "I had pneumonia on 11/26 and never have really gotten better. I have home help and my home helper said that my lungs sound worse than they did and I am having a hard time breathing." Triage Nursing Assessment: Pt presented alert and oriented X 3, skin pwd. Pt ambulates with a slow gait. Pt needs assistance to ambulate. Pt able to speak in clear full sentences. Physician History: pt had pneumonia last month and seemed to recover and was off antibiotics but has been getting worse again and especially today. Prior TAVR Aortic valve and coronary stents. No CP today but short of breath. No N/V or abd pain. Ext with 1 + edema. Neg homans and no erythema. confirmed Hx with as independent source. Discussed risk/benefit of labs - CBC, CMP, UA, Blood cultures, Trop, D DImer, CXR, BNP, Resp panel, EKG with pt and and they wish to proceed. -- Results discussed. discussed with pt and family also breathing duoneb Tx, solumedrol and rocephin risks and benefits for Tx. and they wish to proceed. Timing/Duration: day(s) Activities at Onset: none Severity of Dyspnea-Max: moderate Severity of Dyspnea-Current: moderate Possible Cause: occasional episodes Modifying Factors: Improves With: nothing Associated Symptoms: weakness, ankle swelling, leg swelling Allergies/Adverse Reactions: hydromorphone [From Dilaudid] Allergy (Severe, Verified 11/26/22 13:24) Difficulty Breathing meclofenamic acid [From Meclomen] Allergy (Severe, Verified 11/26/22 13:24) Skin Irritation morphine Allergy (Severe, Verified 11/26/22 13:24) Difficulty Breathing Sulfa (Sulfonamide Antibiotics) Allergy (Severe, Verified 11/26/22 13:24) Extreme constipation ciprofloxacin [From Cipro] Allergy (Intermediate, Verified 11/26/22 13:24) Itching diphenhydramine [From Benadryl] Allergy (Intermediate, Verified 11/26/22 13:24) Swelling of Tongue and Lips pt unable to take po due to swelling of tongue and lips. Can take IM. Home Medications: Bumetanide [Bumex] 2 mg PO DAILY 08/20/17 [History] Duloxetine HCl [Cymbalta] 60 mg PO DAILY 08/20/17 [History] Gabapentin [Neurontin] 600 mg PO TID 08/20/17 [History] Isosorbide Mononitrate 30 mg [Imdur 30 MG] 30 mg PO DAILY 08/20/17 [History] Multivitamin [Multi-Vitamin Daily] 1 each PO DAILY 08/20/17 [History] Nitroglycerin 0.4 mg Tablet [Nitrostat 0.4 MG Tablet] 0.4 mg SL Q5MIN PRN MR X 3 PRN 08/20/17 [History] Potassium Chloride Tab* [Klor Con] 50 meq PO DAILY 08/20/17 [History] Trazodone HCl 50 mg [Desyrel 50 mg] 100 mg PO HS 08/20/17 [History] Metoprolol Succinate 50 mg [Toprol Xl 50 MG] 50 mg PO HS 12/16/17 [History] Clopidogrel Bisulfate [PLAVIX Tablet] 75 mg PO DAILY 03/17/19 [History] Insulin Lispro [Humalog] 0 unit SQ UD 03/17/19 [History] allopurinoL [Zyloprim] 300 mg PO HS 03/17/19 [History] Glimepiride 4 mg [Amaryl 4 mg] 4 mg PO DAILY 06/12/19 [History] Amlodipine Besylate 10 mg PO DAILY 10/20/19 [History] Aspirin 81 gm Chew [Baby Aspirin 81 mg Chew] 81 mg PO HS 10/20/19 [History] Cholecalciferol (Vitamin D3) [Vitamin D3] 2,000 unit PO UD 10/20/19 [History] Losartan Potassium 25 mg PO DAILY 10/20/19 [History] OLANZapine [Olanzapine] 5 mg PO BID 10/20/19 [History] Evolocumab [Repatha Sureclick] 140 mg SQ UD 03/04/20 [History] Insulin Glargine,Hum.rec.anlog [Basaglar Kwikpen U-100] 6 unit SQ DAILY 03/04/20 [History] Cyanocobalamin (Vitamin B-12) [B-12] 1,000 mcg PO DAILY 03/05/20 [History] Acetaminophen [Tylenol Arthritis] 650 mg PO BID 11/26/22 [History] Montelukast Sodium 10 mg [Singulair 10 MG] 1 tab PO DAILY 11/26/22 [History] Tamsulosin HCl 0.4 mg [Flomax 0.4 MG] 1 cap PO HS 11/26/22 [History] Vibegron [Gemtesa] 1 tab PO DAILY 11/26/22 [History] Hx Tetanus, Diphtheria Vaccination/Date Given: Yes Hx Influenza Vaccination/Date Given: Yes Hx Pneumococcal Vaccination/Date Given: Yes Immunizations Up to Date: Yes Travel Risk - International Travel Have you traveled outside of the country in past 3 weeks: No - Coronavirus Screening Are you exhibiting any of the following symptoms?: Yes Symptoms: Shortness of Breath Close contact with a COVID-19 positive Pt in past 14-21 Days: No - Vaccine Status Have you recieved a Covid-19 vaccination: Yes Respiratory Care Practitioner: Unknown - Vaccination Dates Dates if Unknown: ? - Review of Systems Constitutional: Weakness, No Fever, No Chills Eyes: No Symptoms Ears, Nose, & Throat: No Symptoms Respiratory: Cough, Dyspnea Cardiac: No Chest Pain, No Edema, No Syncope Abdominal/Gastrointestinal: No Abdominal Pain, No Nausea, No Vomiting, No Diarrhea Genitourinary Symptoms: No Dysuria Musculoskeletal: No Back Pain, No Neck Pain Skin: No Rash Neurological: No Dizziness, No Focal Weakness, No Sensory Changes Psychological: No Symptoms Endocrine: No Symptoms Hematologic/Lymphatic: No Symptoms Immunological/Allergic: No Symptoms All Other Systems: Reviewed and Negative - Past Medical History Pertinent Past Medical History: Yes Neurological History: No Pertinent History ENT History: Cataracts Cardiac History: Coronary Artery Disease, High Cholesterol, Hypertension Respiratory History: No Pertinent History, CHF Endocrine Medical History: Diabetes Type II Musculoskeletal History: Fractures, Osteoarthritis GI Medical History: Irritable Bowel History: Renal Disease, Other Psycho-Social History: Anxiety, Depression Female Reproductive Disorders: Breast Cancer Other Medical History: CARDIAC STENTS X 3, AORTIC VALVE REPLACEMENT, STAGE 4 KIDNEY DISEASE. RECENT MRI 03/28/22. UNDERWENT INJECTION S1 04/02/22. HX OF LUMBAR LAMINECTOMY THEN FUSION L3-5. Right leg Fracture November 2009 - Past Surgical History Past Surgical History: Yes Neuro Surgical History: No Pertinent History Cardiac: Other Respiratory: No Pertinent History Gastrointestinal: Appendectomy, Cholecystectomy Genitourinary: No Pertinent History Musculoskeletal: No Pertinent History Female Surgical History: Hysterectomy, Section, Tubal Ligation, Lumpectomy Other Surgical History: intestinal bypass and then reverse,sinus surgery times 2 roof/mouth then sinus surgery nose,left foot planters wart,right breast tumor,rt ankle/right leg sx after fx,left breast mastectomy with sentinel removed,6 marek steroid inj,t.a.v.r.-transcatheter aortic value replacement,lumbar laminectomy, steroid injections in back multiple times a year - Social History Smoking Status: Never smoker Exposure to second hand smoke: No Drug Use: none Patient Lives Alone: No - Nursing Vital Signs Nursing Vital Signs: Initial Vital Signs Temperature 97.3 F 01/04/23 15:04 Pulse Rate 79 01/04/23 15:04 Respiratory Rate 22 01/04/23 15:04 Blood Pressure 167/84 01/04/23 15:04 O2 Sat by Pulse Oximetry 97 01/04/23 15:04 Pain Scale Pain Intensity 0 - Physical Exam General Appearance: mild distress, alert Eye Exam: PERRL/EOMI Ears, Nose, Throat Exam: hearing grossly normal, normal ENT inspection, normal pharynx Neck Exam: normal inspection, supple Respiratory Exam: airway intact, crackles/rales Cardiovascular/Chest Exam: normal heart sounds, regular rate/rhythm Abdominal/Gastrointestinal Exam: soft, No tenderness, No distention, No mass Extremity Exam: non-tender, normal range of motion, normal inspection, no calf tenderness, no pedal edema Peripheral Pulses Exam: carotid (R): 2+, carotid (L): 2+, femoral (R): 2+, femoral (L): 2+, dorsalis-pedis (R): 2+, dorsalis-pedis (L): 2+ Neurologic Exam: alert, oriented x 3, cooperative, manager order II-XII nml as tested, sensation nml, No motor deficits Skin Exam: normal color, warm, No dry SpO2 Interpretation: normal SpO2: 96 O2 Delivery: Room Air - Course Nursing assessment & vital signs reviewed: Yes EKG Interpreted by Me: Sinus Rhythm, LAFB, Non-specific ST Changes, Other (LVH) - Radiology Exams Chest X-ray Interpretation: Reviewed by me, Other (bilateral venous congestion) - CT Exams Chest CT Interpretation: Tele-radiologist Report, Other (improving infiltrate and panniculitis early ) - Radiology Ultrasound Exam Venous Lower Extremity Ultrasound: negative Ordered Tests: Active Orders 24 hr Category Date Time Status Maritime Officer STAT Care 01/04/23 15:41 Active IV Insertion STAT Care 01/04/23 15:39 Active Pulse Oximetry (ED) STAT Care 01/04/23 15:39 Active CHEST 1 VIEW (PORTABLE) Stat Exams 01/04/23 15:40 Completed CHEST WITHOUT CONTRAST [CT] Stat Exams 01/04/23 16:44 Completed VENOUS BILATERAL EXTREMITY [US] Stat Exams 01/04/23 16:50 Completed BLOOD CULTURE Stat Lab 01/04/23 16:00 Received CBC W DIFF Stat Lab 01/04/23 15:15 Completed CMP Stat Lab 01/04/23 15:15 Completed D-DIMER QUANTITATIVE Stat Lab 01/04/23 15:15 Completed Lactic Acid Stat Lab 01/04/23 15:39 Completed MAGNESIUM Stat Lab 01/04/23 15:15 Completed NT PRO BNPII Stat Lab 01/04/23 15:15 Completed TROPONIN Q4H Lab 01/04/23 15:15 Completed TROPONIN Q4H Lab 01/04/23 19:41 Completed TROPONIN Q4H Lab 01/04/23 23:45 Ordered UA W/RFX UR CULTURE Stat Lab 01/04/23 15:15 Completed Respiratory Therapy Assessment DAILY RT 01/04/23 16:13 Completed Medication Summary Generic Name Dose Route Start Last Admin Trade Name Freq PRN Reason Stop Dose Admin Sodium Chloride 1,000 mls @ 50 mls/hr 01/04/23 15:45 01/04/23 15:56 Sodium Chloride 0.9% 1000 Ml IV 02/03/23 15:44 50 mls/hr .Q20H CESAR Administration Discontinued Medications Generic Name Dose Route Start Last Admin Trade Name Freq PRN Reason Stop Dose Admin Albuterol/Ipratropium 3 ml 01/04/23 15:39 01/04/23 16:10 Ipratropium/Albuterol Sulfate 3 Ml Ampul.Neb IH 01/04/23 15:40 3 ml STAT ONE Administration Albuterol/Ipratropium Confirm 01/04/23 16:00 Ipratropium/Albuterol Sulfate 3 Ml Ampul.Neb Administered 01/04/23 16:01 Dose 3 ml IH .STK-MED ONE Methylprednisolone Sodium 0 mg 01/04/23 15:39 01/04/23 15:57 Succinate 125 mg/ Sterile IV 01/04/23 15:40 125 mg Water 2 ml STAT ONE Administration Ceftriaxone Sodium/Dextrose 1 g in 50 mls @ 100 mls/hr 01/04/23 15:39 01/04/23 16:56 Rocephin 1 Gm-D5w 50 Ml Bag IV 01/04/23 16:08 Infused STAT STA Infusion Ceftriaxone Sodium/Dextrose Confirm 01/04/23 15:56 Rocephin 1 Gm-D5w 50 Ml Bag Administered 01/04/23 15:57 Dose 1 g in 50 mls @ ud IV .STK-MED ONE Methylprednisolone Sodium Succinate Confirm 01/04/23 15:55 Methylprednis Sod Succ 125 Mg/2 Ml Vial Administered 01/04/23 15:56 Dose 125 mg .ROUTE .STK-MED ONE Sterile Water Confirm 01/04/23 15:55 Water For Injection,Sterile 10 Ml Vial Administered 01/04/23 15:56 Dose 10 ml IJ .STK-MED ONE Lab/Rad Data: Laboratory Result Diagrams 01/04/23 15:15 01/04/23 15:15 Laboratory Results 01/04/23 01/04/23 01/04/23 Range/Units 19:41 16:00 15:39 WBC (4.0-10.5) x10^3/uL RBC (4.1-5.4) x10^6/uL Hgb (12.0-16.0) g/dL Hct (35-47) % MCV (78-100) fL MCH (26-32) pg MCHC (32-36) g/dL RDW (11.5-14.0) % Plt Count (150-450) x10^3/uL MPV (7.5-11.0) fL Gran % (36.0-66.0) % Immature Gran % (Auto) (0.00-0.4) % Nucleat RBC Rel Count (0.00-0.1) % Eos # (Auto) (0-0.5) x10^3/uL Immature Gran # (Auto) (0.00-0.03) x10^3u/L Absolute Lymphs (auto) (1.0-4.6) x10^3/uL Absolute Monos (auto) (0.0-1.3) x10^3/uL Absolute Nucleated RBC (0.00-0.01) x10^3u/L Lymphocytes % (24.0-44.0) % Monocytes % (0.0-12.0) % Eosinophils % (0.00-5.0) % Basophils % (0.0-0.4) % Absolute Granulocytes (1.4-6.9) x10^3/uL Basophils # (0-0.4) x10^3/uL D-Dimer (0.0-0.50) mg/L Sodium (137-145) mmol/L Potassium (3.5-5.1) mmol/L Chloride (98-107) mmol/L Carbon Dioxide (22-30) mmol/L Anion Gap (5-15) MEQ/L BUN (7-17) mg/dL Creatinine (0.52-1.04) mg/dL Estimated GFR ML/MIN Glucose (74-106) mg/dL Lactic Acid 1.7 (0.4-2.0) Calcium (8.4-10.2) mg/dL Magnesium (1.6-2.3) mg/dL Total Bilirubin (0.2-1.3) mg/dL AST (14-36) U/L ALT (0-35) U/L Alkaline Phosphatase (38-126) U/L Troponin I < 0.012 (0.000-0.034) ng/mL NT-Pro-B Natriuret Pep (<300) pg/mL Serum Total Protein (6.3-8.2) g/dL Albumin (3.5-5.0) g/dL Urine Color (Yellow) Urine Appearance (Clear) Urine pH (4.6-8.0) Ur Specific [place] (1.005-1.030) Urine Protein (Negative) Urine Glucose (UA) (Negative) mg/dL Urine Ketones (Negative) Urine Blood (Negative) Urine Nitrite (Negative) Urine Bilirubin (Negative) Urine Urobilinogen (0.2) mg/dL Ur Leukocyte Esterase (Negative) U Hyaline Cast (Auto) (0-2) /LPF Urine Microscopic RBC (0-5) /HPF Urine Microscopic WBC (0-5) /HPF Ur Epithelial Cells (None Seen) /HPF Urine Bacteria (None Seen) /HPF Urine Culture Reflexed (NO) Influenza Type A Ag NEGATIVE (NEGATIVE) Influenza Type B Ag NEGATIVE (NEGATIVE) RSV (PCR) NEGATIVE (NEGATIVE) SARS-CoV-2 (PCR) NEGATIVE (NEGATIVE) 01/04/23 01/04/23 01/04/23 Range/Units 15:15 15:15 15:15 WBC (4.0-10.5) x10^3/uL RBC (4.1-5.4) x10^6/uL Hgb (12.0-16.0) g/dL Hct (35-47) % MCV (78-100) fL MCH (26-32) pg MCHC (32-36) g/dL RDW (11.5-14.0) % Plt Count (150-450) x10^3/uL MPV (7.5-11.0) fL Gran % (36.0-66.0) % Immature Gran % (Auto) (0.00-0.4) % Nucleat RBC Rel Count (0.00-0.1) % Eos # (Auto) (0-0.5) x10^3/uL Immature Gran # (Auto) (0.00-0.03) x10^3u/L Absolute Lymphs (auto) (1.0-4.6) x10^3/uL Absolute Monos (auto) (0.0-1.3) x10^3/uL Absolute Nucleated RBC (0.00-0.01) x10^3u/L Lymphocytes % (24.0-44.0) % Monocytes % (0.0-12.0) % Eosinophils % (0.00-5.0) % Basophils % (0.0-0.4) % Absolute Granulocytes (1.4-6.9) x10^3/uL Basophils # (0-0.4) x10^3/uL D-Dimer (0.0-0.50) mg/L Sodium (137-145) mmol/L Potassium (3.5-5.1) mmol/L Chloride (98-107) mmol/L Carbon Dioxide (22-30) mmol/L Anion Gap (5-15) MEQ/L BUN (7-17) mg/dL Creatinine (0.52-1.04) mg/dL Estimated GFR ML/MIN Glucose (74-106) mg/dL Lactic Acid (0.4-2.0) Calcium (8.4-10.2) mg/dL Magnesium (1.6-2.3) mg/dL Total Bilirubin (0.2-1.3) mg/dL AST (14-36) U/L ALT (0-35) U/L Alkaline Phosphatase (38-126) U/L Troponin I < 0.012 (0.000-0.034) ng/mL NT-Pro-B Natriuret Pep 763 (<300) pg/mL Serum Total Protein (6.3-8.2) g/dL Albumin (3.5-5.0) g/dL Urine Color Yellow (Yellow) Urine Appearance Clear (Clear) Urine pH 5.5 (4.6-8.0) Ur Specific [place] 1.010 (1.005-1.030) Urine Protein Negative (Negative) Urine Glucose (UA) Negative (Negative) mg/dL Urine Ketones Negative (Negative) Urine Blood Negative (Negative) Urine Nitrite Negative (Negative) Urine Bilirubin Negative (Negative) Urine Urobilinogen 0.2 (0.2) mg/dL Ur Leukocyte Esterase Trace A (Negative) U Hyaline Cast (Auto) 0-2 (0-2) /LPF Urine Microscopic RBC 0-2 (0-5) /HPF Urine Microscopic WBC 3-5 (0-5) /HPF Ur Epithelial Cells None Seen (None Seen) /HPF Urine Bacteria None Seen (None Seen) /HPF Urine Culture Reflexed NO (NO) Influenza Type A Ag (NEGATIVE) Influenza Type B Ag (NEGATIVE) RSV (PCR) (NEGATIVE) SARS-CoV-2 (PCR) (NEGATIVE) 01/04/23 01/04/23 01/04/23 Range/Units 15:15 15:15 15:15 WBC 8.7 (4.0-10.5) x10^3/uL RBC 3.79 L (4.1-5.4) x10^6/uL Hgb 12.1 (12.0-16.0) g/dL Hct 36.7 (35-47) % MCV 96.8 (78-100) fL MCH 31.9 (26-32) pg MCHC 33.0 (32-36) g/dL RDW 13.4 (11.5-14.0) % Plt Count 187 (150-450) x10^3/uL MPV 10.9 (7.5-11.0) fL Gran % 64.0 (36.0-66.0) % Immature Gran % (Auto) 0.2 (0.00-0.4) % Nucleat RBC Rel Count 0.0 (0.00-0.1) % Eos # (Auto) 0.30 (0-0.5) x10^3/uL Immature Gran # (Auto) 0.02 (0.00-0.03) x10^3u/L Absolute Lymphs (auto) 2.19 (1.0-4.6) x10^3/uL Absolute Monos (auto) 0.55 (0.0-1.3) x10^3/uL Absolute Nucleated RBC 0.00 (0.00-0.01) x10^3u/L Lymphocytes % 25.3 (24.0-44.0) % Monocytes % 6.4 (0.0-12.0) % Eosinophils % 3.5 (0.00-5.0) % Basophils % 0.6 (0.0-0.4) % Absolute Granulocytes 5.55 (1.4-6.9) x10^3/uL Basophils # 0.05 (0-0.4) x10^3/uL D-Dimer 1.66 H* (0.0-0.50) mg/L Sodium 140 (137-145) mmol/L Potassium 4.3 (3.5-5.1) mmol/L Chloride 100 (98-107) mmol/L Carbon Dioxide 32 H (22-30) mmol/L Anion Gap 12.3 (5-15) MEQ/L BUN 28 H (7-17) mg/dL Creatinine 1.67 H (0.52-1.04) mg/dL Estimated GFR 32.0 ML/MIN Glucose 223 H (74-106) mg/dL Lactic Acid (0.4-2.0) Calcium 9.2 (8.4-10.2) mg/dL Magnesium 2.2 (1.6-2.3) mg/dL Total Bilirubin 0.50 (0.2-1.3) mg/dL AST 28 (14-36) U/L ALT 18 (0-35) U/L Alkaline Phosphatase 112 (38-126) U/L Troponin I (0.000-0.034) ng/mL NT-Pro-B Natriuret Pep (<300) pg/mL Serum Total Protein 7.4 (6.3-8.2) g/dL Albumin 4.0 (3.5-5.0) g/dL Urine Color (Yellow) Urine Appearance (Clear) Urine pH (4.6-8.0) Ur Specific [place] (1.005-1.030) Urine Protein (Negative) Urine Glucose (UA) (Negative) mg/dL Urine Ketones (Negative) Urine Blood (Negative) Urine Nitrite (Negative) Urine Bilirubin (Negative) Urine Urobilinogen (0.2) mg/dL Ur Leukocyte Esterase (Negative) U Hyaline Cast (Auto) (0-2) /LPF Urine Microscopic RBC (0-5) /HPF Urine Microscopic WBC (0-5) /HPF Ur Epithelial Cells (None Seen) /HPF Urine Bacteria (None Seen) /HPF Urine Culture Reflexed (NO) Influenza Type A Ag (NEGATIVE) Influenza Type B Ag (NEGATIVE) RSV (PCR) (NEGATIVE) SARS-CoV-2 (PCR) (NEGATIVE) - Progress Progress: improved, re-examined Air Movement: good Progress Note: 01/04/23 21:38 discussed with pt and and they consent to consultation with hospitalist to determine best place for hosp Tx and proceed accordingly. 01/04/23 22:13 consulted and Discussed with Dr. Ball and all agree best to place pt on obs and he is aware of the results and will make med adjustments and address anticoag concerns for potential of PE. Blood Culture(s) Obtained: Yes Antibiotics given: Yes Discussed with Dr.: Other (Dr. Mobley) Will see patient in: hospital (observation) Counseled pt/family regarding: lab results, diagnosis, need for follow-up, rad results Medical Desision Making - Independent Historian Additional History obtained from: Spouse - Discussion of managment Care discussed with:: hospitalist Reviewed:: Test results, Need for additional workup Agreed on:: Treatment plan, need for follow-up, decision to admit, place in obs Will see patient: in hospital - Diagnostic Testing Diagnostic test were ordered, analyzed, and reviewed by me: Yes Radiological Interpretation: Interpreted by me, Reviewed by me - Risk of complications The pt has a mod risk of morbidity or mortality based on: Need for prescription drug management The pt has a high risk of morbidity or mortality based on: Decision regarding hospitilization or escalation of hosp level of care - Departure Departure Disposition: Observation Clinical Impression: Shortness of breath, exacerbation COPD, CHF, ELevated D dimer Condition: Good Critical Care Time: No Referrals: SONIA MARTIN MD [Primary Care Provider] - Follow up/PCP as directed
[2023-01-04] MEDS ORDERED: DUONEB 0.5-3 MG/3 ml Neb IH ONE ×2 (15:39→16:00)
[2023-01-04] MEDS ORDERED: ROCEPHIN 1 Gm-D5w 50 ml Bag** 1 G/50 ML IVPB IV STA (15:39)
[2023-01-04] MEDS ORDERED: solu-MEDROL 125 MG, Sterile H2O 10 ml 2 ML IV ONE ×2 (15:39)
[2023-01-04] MEDS ORDERED: Sodium Chloride 0.9% 1000 ML 1,000 ML IV SCH (15:45)
[2023-01-04 15:46] LABS: Absolute Neutrophil Ct (ANC) 5.55 x10^3/uL (1.4-6.9); BASOPHIL % 0.6 % (0.0-0.4); Basophil (Absolute #) 0.05 x10^3/uL (0-0.4); Eosinophil % 3.5 % (0.00-5.0); Hematocrit 36.7 % (35-47); Hemoglobin 12.1 g/dL (12.0-16.0); IMMATURE GRAN # 0.02 x10^3u/L (0.00-0.03); IMMATURE GRAN % 0.2 % (0.00-0.4); Lymphocyte (Absolute #) 2.19 x10^3/uL (1.0-4.6); Lymphocytes % 25.3 % (24.0-44.0); Mean Cell Volume 96.8 fL (78-100); Mean Corpuscular Hemoglobin 31.9 pg (26-32); Mean Platelet Volume 10.9 fL (7.5-11.0); Monocyte (Absolute #) 0.55 x10^3/uL (0.0-1.3); Monocytes % 6.4 % (0.0-12.0); Platelet Count 187 x10^3/uL (150-450); Red Blood Count 3.79 x10^6/uL (4.1-5.4); Red Cell Distribution Width 13.4 % (11.5-14.0); White Blood Count 8.7 x10^3/uL (4.0-10.5)
[2023-01-04] MEDS ORDERED: Sterile H2O 10 ml IJ ONE (15:55)
[2023-01-04] MEDS ORDERED: solu-MEDROL ONE (15:55)
[2023-01-04] MEDS ORDERED: Sodium Chloride 0.9% 1000 ML 1,000 ML ONE (15:55)
[2023-01-04] MEDS ORDERED: ROCEPHIN 1 Gm-D5w 50 ml Bag** 1 G/50 ML IVPB IV ONE (15:56)
[2023-01-04 16:04] LABS: ANION GAP 12.3 MEQ/L (5-15); BILIRUBIN,TOTAL 0.5 mg/dL (0.2-1.3); Calcium 9.2 mg/dL (8.4-10.2); Creatinine 1 1.67 mg/dL (0.52-1.04); MAGNESIUM 2.2 mg/dL (1.6-2.3); Potassium 4.3 mmol/L (3.5-5.1); Total Protein 7.4 g/dL (6.3-8.2)
[2023-01-04 16:14] LABS: Appearance Clear (Clear); Bacteria None Seen /HPF (None Seen); Bilirubin Negative (Negative); Blood Negative (Negative); Epithelial Cells None Seen /HPF (None Seen); Glucose, Urine Negative (Negative); Ketones Negative (Negative); Leukocyte Esterase Trace (Negative); Nitrite Negative (Negative); Ph 5.5 (4.6-8.0); Protein,Urine Dip Negative (Negative); RBC 0-2 /HPF (0-5); Urobilinogen 0.2 mg/dL (0.2)
[2023-01-04 16:15] LABS: ADD URINE CULTURE? NO (NO)
[2023-01-04 16:18] LABS: Hyaline Casts 0-2 /LPF (0-2)
[2023-01-04 16:49] LABS: INFLUENZA A NEGATIVE (NEGATIVE); INFLUENZA B NEGATIVE (NEGATIVE); RESPIRATORY SYNCTIAL VIRUS NEGATIVE (NEGATIVE); SARS-CoV-2 Xpert Express NEGATIVE (NEGATIVE)
--- NOTE | 2023-01-04 20:19 | XRAY ---
CLINICAL HISTORY:Infiltrates to compare to previous. COMPARISON:None. TECHNIQUES:Contiguous 3.[address] images of the chest were acquired without administration of intravenous contrast. Coronal and sagittal reconstructions were obtained. FINDINGS: No obvious consolidation is noted in either lung. Basilar atelactasis is noted in left lung. Resolving basilar infiltrates are seen in right lower lobe. Mild pleural thickening is seen at lung bases bilaterally. Calcification is noted in the coronary vessels. Prosthetic aortic valve is noted. Heart size is normal, and there is no pericardial effusion. No pathologically enlarged axillary lymph node identified. There is no definite mass lesion in the chest wall. Degenerative changes seen in the visualized spine no other bony abnormality is detected. The rest of scanned upper abdomen shows smudging of mesenteric fat around the mesenteric vessels and chiladiti sign. IMPRESSION: 1. Basilar atelactasis in left lung. 2. Resolving basilar infiltrates seen in right lower lobe. 3. Mild pleural thickening is seen at lung bases bilaterally. 4. 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 Electronically Signed by: Rafi Ruff MD. (01/04/2023 16:40:24 THORACIC MEDICINE SPECIALIST)
--- NOTE | 2023-01-04 21:07 | XRAY ---
Indication: Bilateral leg swelling/edema. Elevated d-dimer. Two-dimensional sonogram and color Doppler imaging of the major venous vessels of left and right leg performed. Comparison: June 07, 2019 No thrombus seen in the examined deep venous vessels of the left and right leg including greater saphenous vein. Veins demonstrate normal compressibility. Venous waveforms are normal with and without augmentation. Impression: Left and right legs again negative for DVT. Comment: Preliminary report was given.
--- NOTE | 2023-01-04 21:11 | XRAY ---
Indication: Short of breath. Comparison: November 28, 2022 Portable chest again demonstrates chronic right hemidiaphragm elevation. No focal infiltrate, consolidation, or large effusion. Heart not enlarged again with aortic valve replacement. Bony thorax intact again with osteopenia and mild degenerative changes. Impression: Continued nonacute chest with chronic features.
--- NOTE | 2023-01-04 22:41 | PCM.HP ---
History of Present Illness - Chief Complaint Chief Complaint: SOB History of Present Illness: is a 72 year old female with hx of aortic valve replacement via TAVR, CAD with stents, DMII, HTN, and CKD 3 presented to ER tonight with c/o SOB and not better since a diagnosis and treatment for pneumonia back in late November. She denies chest pain. C/o mostly SOB but O2 sat good on RA. No fever, chills, cough, sputum, nausea, vomiting or diarrhea. Denies chest pain. In ER, work up revealed Cr 1.67, DDimer of 1.66, BNP 763. CXR clear. CT shows clearing basilar infiltrates in right lung base. ER did doppler US LE and it was negative for DVT. ER doc is concern with the elevated D-Dimer, but cannot do CTA PE protocol given risk for NONI from IV contrast. Trop negative x 2. Seen pt in room via telemedicine. , Kody is at bedside. She is resting comfortably on RA This entire visit is done via telemedicine. The pt gave me verbal consent to have this telemedicine visit - Review of Systems Constitutional: No Symptoms Eyes: No Symptoms Ears, Nose, & Throat: No Symptoms Respiratory: Short Of Breath Cardiac: No Symptoms Abdominal/Gastrointestinal: No Symptoms Genitourinary Symptoms: No Symptoms Musculoskeletal: No Symptoms Skin: No Symptoms Neurological: No Symptoms Psychological: No Symptoms Endocrine: No Symptoms Hematologic/Lymphatic: No Symptoms Immunological/Allergic: No Symptoms Medications & Allergies Home Medications: Home Medication List Bumetanide [Bumex] 2 mg PO DAILY 08/20/17 [History Confirmed 01/04/23] Duloxetine HCl [Cymbalta] 60 mg PO DAILY 08/20/17 [History Confirmed 01/04/23] Gabapentin [Neurontin] 600 mg PO QID 08/20/17 [History Confirmed 01/04/23] Isosorbide Mononitrate 30 mg [Imdur 30 MG] 30 mg PO DAILY 08/20/17 [History Confirmed 01/04/23] Multivitamin [Multi-Vitamin Daily] 1 each PO DAILY 08/20/17 [History Confirmed 01/04/23] Nitroglycerin 0.4 mg Tablet [Nitrostat 0.4 MG Tablet] 0.4 mg SL Q5MIN PRN MR X 3 PRN 08/20/17 [History Confirmed 01/04/23] Potassium Chloride Tab* [Klor Con] 50 meq PO DAILY 08/20/17 [History Confirmed 01/04/23] Trazodone HCl 50 mg [Desyrel 50 mg] 100 mg PO HS 08/20/17 [History Confirmed 01/04/23] Metoprolol Succinate 50 mg [Toprol Xl 50 MG] 50 mg PO HS 12/16/17 [History Confirmed 01/04/23] Clopidogrel Bisulfate [PLAVIX Tablet] 75 mg PO DAILY 03/17/19 [History Confirmed 01/04/23] Insulin Lispro [Humalog] 0 unit SQ UD 03/17/19 [History Confirmed 01/04/23] allopurinoL [Zyloprim] 300 mg PO HS 03/17/19 [History Confirmed 01/04/23] Glimepiride 4 mg [Amaryl 4 mg] 4 mg PO DAILY 06/12/19 [History Confirmed 01/04/23] Amlodipine Besylate 10 mg PO DAILY 10/20/19 [History Confirmed 01/04/23] Aspirin 81 gm Chew [Baby Aspirin 81 mg Chew] 81 mg PO HS 10/20/19 [History Confirmed 01/04/23] Cholecalciferol (Vitamin D3) [Vitamin D3] 2,000 unit PO UD 10/20/19 [History Confirmed 01/04/23] Losartan Potassium 25 mg PO DAILY 10/20/19 [History Confirmed 01/04/23] OLANZapine [Olanzapine] 5 mg PO BID 10/20/19 [History Confirmed 01/04/23] Evolocumab [Repatha Sureclick] 140 mg SQ UD 03/04/20 [History Confirmed 01/04/23] Insulin Glargine,Hum.rec.anlog [Basaglar Kwikpen U-100] 6 unit SQ DAILY 03/04/20 [History Confirmed 01/04/23] Cyanocobalamin (Vitamin B-12) [B-12] 1,000 mcg PO DAILY 03/05/20 [History Confirmed 01/04/23] Acetaminophen [Tylenol Arthritis] 650 mg PO BID PRN 11/26/22 [History Confirmed 01/04/23] Montelukast Sodium 10 mg [Singulair 10 MG] 1 tab PO DAILY 11/26/22 [History Confirmed 01/04/23] Tamsulosin HCl 0.4 mg [Flomax 0.4 MG] 1 cap PO DAILY 11/26/22 [History Confirmed 01/04/23] Vibegron [Gemtesa] 1 tab PO DAILY 11/26/22 [History Confirmed 01/04/23] Guaifenesin 600 mg ER [Mucinex 600MG ER Tabs] 600 mg PO BID 6 Days #12 tablet 11/28/22 [Rx Confirmed 01/04/23] Mupirocin [Bactroban OINTMENT] 0 gm TP TID 11/28/22 [Rx Confirmed 01/04/23 ] Allergies/Adverse Reactions: Allergies Allergy/AdvReac Type Severity Reaction Status Date / Time hydromorphone [From Dilaudid] Allergy Severe Difficulty Verified 11/26/22 13:24 Breathing meclofenamic acid Allergy Severe Skin Verified 11/26/22 13:24 [From Meclomen] Irritation morphine Allergy Severe Difficulty Verified 11/26/22 13:24 Breathing Sulfa (Sulfonamide Allergy Severe Verified 11/26/22 13:24 Antibiotics) ciprofloxacin [From Cipro] Allergy Intermediate Itching Verified 11/26/22 13:24 diphenhydramine Allergy Intermediate Swelling Verified 11/26/22 13:24 [From Benadryl] of Tongue and Lips - Past Medical History Past Medical History: Yes Neurological History: No Pertinent History ENT History: Cataracts Cardiac History: Coronary Artery Disease, High Cholesterol, Hypertension Respiratory History: No Pertinent History, CHF Endocrine Medical History: Diabetes Type II Musculoskelatal History: Fractures, Osteoarthritis GI Medical History: Irritable Bowel History: Renal Disease (CKD 3), Other Pyscho-Social History: Anxiety, Depression Reproductive Disorders: Breast Cancer Comment: CARDIAC STENTS X 3, AORTIC VALVE REPLACEMENT, STAGE 4 KIDNEY DISEASE. RECENT MRI 03/28/22. UNDERWENT INJECTION S1 04/02/22. HX OF LUMBAR LAMINECTOMY THEN FUSION L3-5. Right leg Fracture November 2009 - Past Surgical History Past Surgical History: Yes Neuro Surgical History: No Pertinent History Cardiac History: Other Respiratory Surgery: No Pertinent History GI Surgical History: Appendectomy, Cholecystectomy Genitourinary Surgical Hx: No Pertinent History Musculskeletal Surgical Hx: No Pertinent History Female Surgical History: Hysterectomy, Section, Tubal Ligation, Lumpectomy Other Surgical History: intestinal bypass and then reverse,sinus surgery times 2 roof/mouth then sinus surgery nose,left foot planters wart,right breast tumor,rt ankle/right leg sx after fx,left breast mastectomy with sentinel removed,6 marek steroid inj,t.a.v.r.-transcatheter aortic value replacement,lumbar laminectomy, steroid injections in back multiple times a year - Social History Smoking Status: Never smoker Exposure to second hand smoke: No Alcohol: None Drug Use: none Significant Family History: no pertinent family hx - Physical Exam Vital Signs: Vital Signs - 24 hr Temp Pulse Resp BP BP Pulse Ox 01/04/23 22:19 96 01/04/23 22:00 85 15 128/63 98 01/04/23 21:30 87 15 133/62 98 01/04/23 21:00 88 17 127/66 95 01/04/23 20:30 89 16 155/68 96 01/04/23 20:00 93 H 21 145/84 98 01/04/23 19:30 94 H 19 138/70 01/04/23 19:00 93 H 18 169/73 01/04/23 18:30 87 8 L 167/74 93 L 01/04/23 18:00 88 12 163/74 93 L 01/04/23 17:30 85 15 167/102 95 01/04/23 17:20 85 17 97 01/04/23 17:11 95 01/04/23 16:30 154/70 01/04/23 16:14 73 18 97 01/04/23 16:00 75 15 169/79 96 01/04/23 15:54 96 01/04/23 15:04 97.3 F 79 22 167/84 96 General Appearance: no apparent distress Neurologic Exam: alert, oriented x 3, cooperative, section cutter II-XII nml as tested, normal mood/affect Eye Exam: PERRL/EOMI, eyes nml inspection Ears, Nose, Throat Exam: normal ENT inspection, moist mucous membranes Neck Exam: non-tender, supple, full range of motion Respiratory Exam: normal breath sounds, lungs clear Cardiovascular Exam: regular rate/rhythm, normal heart sounds, normal peripheral pulses Gastrointestinal/Abdomen Exam: soft, normal bowel sounds Pelvic Exam: deferred Rectal Exam: deferred Back Exam: normal inspection Extremity Exam: normal inspection, normal range of motion Skin Exam: normal color, warm, dry Results - Labs Lab/Micro Results: Lab Results-Last 24 Hours 01/04/23 01/04/23 01/04/23 Range/Units 15:15 15:15 15:15 WBC 8.7 (4.0-10.5) x10^3/uL RBC 3.79 L (4.1-5.4) x10^6/uL Hgb 12.1 (12.0-16.0) g/dL Hct 36.7 (35-47) % MCV 96.8 (78-100) fL MCH 31.9 (26-32) pg MCHC 33.0 (32-36) g/dL RDW 13.4 (11.5-14.0) % Plt Count 187 (150-450) x10^3/uL MPV 10.9 (7.5-11.0) fL Gran % 64.0 (36.0-66.0) % Immature Gran % (Auto) 0.2 (0.00-0.4) % Nucleat RBC Rel Count 0.0 (0.00-0.1) % Eos # (Auto) 0.30 (0-0.5) x10^3/uL Immature Gran # (Auto) 0.02 (0.00-0.03) x10^3u/L Absolute Lymphs (auto) 2.19 (1.0-4.6) x10^3/uL Absolute Monos (auto) 0.55 (0.0-1.3) x10^3/uL Absolute Nucleated RBC 0.00 (0.00-0.01) x10^3u/L Lymphocytes % 25.3 (24.0-44.0) % Monocytes % 6.4 (0.0-12.0) % Eosinophils % 3.5 (0.00-5.0) % Basophils % 0.6 (0.0-0.4) % Absolute Granulocytes 5.55 (1.4-6.9) x10^3/uL Basophils # 0.05 (0-0.4) x10^3/uL D-Dimer 1.66 H* (0.0-0.50) mg/L Sodium 140 (137-145) mmol/L Potassium 4.3 (3.5-5.1) mmol/L Chloride 100 (98-107) mmol/L Carbon Dioxide 32 H (22-30) mmol/L Anion Gap 12.3 (5-15) MEQ/L BUN 28 H (7-17) mg/dL Creatinine 1.67 H (0.52-1.04) mg/dL Estimated GFR 32.0 ML/MIN Glucose 223 H (74-106) mg/dL Lactic Acid (0.4-2.0) Calcium 9.2 (8.4-10.2) mg/dL Magnesium 2.2 (1.6-2.3) mg/dL Total Bilirubin 0.50 (0.2-1.3) mg/dL AST 28 (14-36) U/L ALT 18 (0-35) U/L Alkaline Phosphatase 112 (38-126) U/L Troponin I (0.000-0.034) ng/mL NT-Pro-B Natriuret Pep (<300) pg/mL Serum Total Protein 7.4 (6.3-8.2) g/dL Albumin 4.0 (3.5-5.0) g/dL Urine Color (Yellow) Urine Appearance (Clear) Urine pH (4.6-8.0) Ur Specific [place] (1.005-1.030) Urine Protein (Negative) Urine Glucose (UA) (Negative) mg/dL Urine Ketones (Negative) Urine Blood (Negative) Urine Nitrite (Negative) Urine Bilirubin (Negative) Urine Urobilinogen (0.2) mg/dL Ur Leukocyte Esterase (Negative) U Hyaline Cast (Auto) (0-2) /LPF Urine Microscopic RBC (0-5) /HPF Urine Microscopic WBC (0-5) /HPF Ur Epithelial Cells (None Seen) /HPF Urine Bacteria (None Seen) /HPF Urine Culture Reflexed (NO) Influenza Type A Ag (NEGATIVE) Influenza Type B Ag (NEGATIVE) RSV (PCR) (NEGATIVE) SARS-CoV-2 (PCR) (NEGATIVE) 01/04/23 01/04/23 01/04/23 Range/Units 15:15 15:15 15:15 WBC (4.0-10.5) x10^3/uL RBC (4.1-5.4) x10^6/uL Hgb (12.0-16.0) g/dL Hct (35-47) % MCV (78-100) fL MCH (26-32) pg MCHC (32-36) g/dL RDW (11.5-14.0) % Plt Count (150-450) x10^3/uL MPV (7.5-11.0) fL Gran % (36.0-66.0) % Immature Gran % (Auto) (0.00-0.4) % Nucleat RBC Rel Count (0.00-0.1) % Eos # (Auto) (0-0.5) x10^3/uL Immature Gran # (Auto) (0.00-0.03) x10^3u/L Absolute Lymphs (auto) (1.0-4.6) x10^3/uL Absolute Monos (auto) (0.0-1.3) x10^3/uL Absolute Nucleated RBC (0.00-0.01) x10^3u/L Lymphocytes % (24.0-44.0) % Monocytes % (0.0-12.0) % Eosinophils % (0.00-5.0) % Basophils % (0.0-0.4) % Absolute Granulocytes (1.4-6.9) x10^3/uL Basophils # (0-0.4) x10^3/uL D-Dimer (0.0-0.50) mg/L Sodium (137-145) mmol/L Potassium (3.5-5.1) mmol/L Chloride (98-107) mmol/L Carbon Dioxide (22-30) mmol/L Anion Gap (5-15) MEQ/L BUN (7-17) mg/dL Creatinine (0.52-1.04) mg/dL Estimated GFR ML/MIN Glucose (74-106) mg/dL Lactic Acid (0.4-2.0) Calcium (8.4-10.2) mg/dL Magnesium (1.6-2.3) mg/dL Total Bilirubin (0.2-1.3) mg/dL AST (14-36) U/L ALT (0-35) U/L Alkaline Phosphatase (38-126) U/L Troponin I < 0.012 (0.000-0.034) ng/mL NT-Pro-B Natriuret Pep 763 (<300) pg/mL Serum Total Protein (6.3-8.2) g/dL Albumin (3.5-5.0) g/dL Urine Color Yellow (Yellow) Urine Appearance Clear (Clear) Urine pH 5.5 (4.6-8.0) Ur Specific [place] 1.010 (1.005-1.030) Urine Protein Negative (Negative) Urine Glucose (UA) Negative (Negative) mg/dL Urine Ketones Negative (Negative) Urine Blood Negative (Negative) Urine Nitrite Negative (Negative) Urine Bilirubin Negative (Negative) Urine Urobilinogen 0.2 (0.2) mg/dL Ur Leukocyte Esterase Trace A (Negative) U Hyaline Cast (Auto) 0-2 (0-2) /LPF Urine Microscopic RBC 0-2 (0-5) /HPF Urine Microscopic WBC 3-5 (0-5) /HPF Ur Epithelial Cells None Seen (None Seen) /HPF Urine Bacteria None Seen (None Seen) /HPF Urine Culture Reflexed NO (NO) Influenza Type A Ag (NEGATIVE) Influenza Type B Ag (NEGATIVE) RSV (PCR) (NEGATIVE) SARS-CoV-2 (PCR) (NEGATIVE) 01/04/23 01/04/23 01/04/23 Range/Units 15:39 16:00 19:41 WBC (4.0-10.5) x10^3/uL RBC (4.1-5.4) x10^6/uL Hgb (12.0-16.0) g/dL Hct (35-47) % MCV (78-100) fL MCH (26-32) pg MCHC (32-36) g/dL RDW (11.5-14.0) % Plt Count (150-450) x10^3/uL MPV (7.5-11.0) fL Gran % (36.0-66.0) % Immature Gran % (Auto) (0.00-0.4) % Nucleat RBC Rel Count (0.00-0.1) % Eos # (Auto) (0-0.5) x10^3/uL Immature Gran # (Auto) (0.00-0.03) x10^3u/L Absolute Lymphs (auto) (1.0-4.6) x10^3/uL Absolute Monos (auto) (0.0-1.3) x10^3/uL Absolute Nucleated RBC (0.00-0.01) x10^3u/L Lymphocytes % (24.0-44.0) % Monocytes % (0.0-12.0) % Eosinophils % (0.00-5.0) % Basophils % (0.0-0.4) % Absolute Granulocytes (1.4-6.9) x10^3/uL Basophils # (0-0.4) x10^3/uL D-Dimer (0.0-0.50) mg/L Sodium (137-145) mmol/L Potassium (3.5-5.1) mmol/L Chloride (98-107) mmol/L Carbon Dioxide (22-30) mmol/L Anion Gap (5-15) MEQ/L BUN (7-17) mg/dL Creatinine (0.52-1.04) mg/dL Estimated GFR ML/MIN Glucose (74-106) mg/dL Lactic Acid 1.7 (0.4-2.0) Calcium (8.4-10.2) mg/dL Magnesium (1.6-2.3) mg/dL Total Bilirubin (0.2-1.3) mg/dL AST (14-36) U/L ALT (0-35) U/L Alkaline Phosphatase (38-126) U/L Troponin I < 0.012 (0.000-0.034) ng/mL NT-Pro-B Natriuret Pep (<300) pg/mL Serum Total Protein (6.3-8.2) g/dL Albumin (3.5-5.0) g/dL Urine Color (Yellow) Urine Appearance (Clear) Urine pH (4.6-8.0) Ur Specific [place] (1.005-1.030) Urine Protein (Negative) Urine Glucose (UA) (Negative) mg/dL Urine Ketones (Negative) Urine Blood (Negative) Urine Nitrite (Negative) Urine Bilirubin (Negative) Urine Urobilinogen (0.2) mg/dL Ur Leukocyte Esterase (Negative) U Hyaline Cast (Auto) (0-2) /LPF Urine Microscopic RBC (0-5) /HPF Urine Microscopic WBC (0-5) /HPF Ur Epithelial Cells (None Seen) /HPF Urine Bacteria (None Seen) /HPF Urine Culture Reflexed (NO) Influenza Type A Ag NEGATIVE (NEGATIVE) Influenza Type B Ag NEGATIVE (NEGATIVE) RSV (PCR) NEGATIVE (NEGATIVE) SARS-CoV-2 (PCR) NEGATIVE (NEGATIVE) - Radiology Impressions Radiology Exams & Impressions: Radiology Procedures Category Date Time Status CHEST 1 VIEW (PORTABLE) Stat Exams 01/04/23 15:40 Completed CHEST WITHOUT CONTRAST [CT] Stat Exams 01/04/23 16:44 Completed VENOUS BILATERAL EXTREMITY [US] Stat Exams 01/04/23 16:50 Completed Assessment/Plan (1) Shortness of breath Current Visit: Yes Status: Acute Assessment & Plan: CT chest showing right basilar infiltrate. On RA. WBC normal. No fever. ER gave Rocephin, sent BC x 2. Plan to continue Rocephin until cuktures comes back. D- Dimer elevated as well - thus concerning for PE, but cannot do CTA PE protocol as pt does not want the risk of NONI. So, will treat presumptively, until we can make a more definitive diagnostic test. Lovenox 1mg/kg SQ BID - ideal body weight - adjusted dose to 70mg SQ BID. O2 protocol. May be a component of CHF as well given BNP 763 and trace edema in legs. She is on Bumex at home 2mg daily. Will continue this Code(s): R06.02 - SHORTNESS OF BREATH (2) Hypertension Current Visit: No Status: Acute Qualifiers: Hypertension type: primary hypertension Qualified Code(s): I10 - Essential (primary) hypertension Assessment & Plan: Can continue home BP medications - Amlodipine, Carvedilol and Losartan. Monitor BP and adjust as needed Code(s): I10 - ESSENTIAL (PRIMARY) HYPERTENSION (3) Left lower lobe pneumonia Current Visit: No Status: Acute Qualifiers: Pneumonia type: due to Pneumococcus Qualified Code(s): J13 - Pneumonia due to Streptococcus pneumoniae Assessment & Plan: [place] Rocephin 1gm IV daily. BC x 2 sent Code(s): J18.9 - PNEUMONIA, UNSPECIFIED ORGANISM (4) CHF (congestive heart failure) Current Visit: No Status: Chronic Qualifiers: Heart failure type: unspecified Heart failure chronicity: unspecified Qualified Code(s): I50.9 - Heart failure, unspecified Assessment & Plan: BNP 763, + trace edema in legs, hx of CHF/CAD. Clinically stable on RA. Continue home bumex at 2mg daily Code(s): I50.9 - HEART FAILURE, UNSPECIFIED (5) Chronic kidney disease (CKD) Current Visit: Yes Status: Chronic Qualifiers: Chronic kidney disease stage: stage 3 (moderate) Chronic kidney disease stage 3 subtype: unspecified whether 3a or 3b Qualified Code(s): N18.30 - Chronic kidney disease, stage 3 unspecified Assessment & Plan: Cr 1.67, baseline. Avoid IV contrast, NSAIDs, hypotension. Dose all meds accordingly. No further work-up is needed since she has this history Code(s): N18.9 - CHRONIC KIDNEY DISEASE, UNSPECIFIED (6) Diabetes mellitus, insulin dependent (IDDM), controlled Current Visit: Yes Status: Chronic Assessment & Plan: ADA diet, resumed home regimen, accucheck qAC and qHS Code(s): [id number] -
[2023-01-05] MEDS ORDERED: ZYLOPRIM 300 MG PO ONE (00:53)
[2023-01-05] MEDS ORDERED: TYLENOL 325 MG PO PRN (00:54)
[2023-01-05] MEDS ORDERED: Mucinex 600MG ER Tabs PO ONE (01:00)
[2023-01-05] MEDS ORDERED: NEURONTIN PO ONE (01:00)
[2023-01-05] MEDS ORDERED: zyPREXA 5MG TABLET PO ONE (01:00)
[2023-01-05] MEDS ORDERED: BABY ASPIRIN 81 MG CHEW PO ONE (01:00)
[2023-01-05] MEDS ORDERED: Toprol Xl 50 MG PO ONE (01:00)
[2023-01-05] MEDS ORDERED: DESYREL 50 MG PO ONE (01:00)
[2023-01-05] MEDS ORDERED: Flomax 0.4 MG PO ONE (01:00)
[2023-01-05] MEDS ORDERED: ECOTRIN 81 MG PO ONE (01:25)
[2023-01-05] MEDS: DUONEB 0.5-3 MG/3 ml Neb IH SCH ×4 (03:31→19:25)
[2023-01-05] MEDS: HUMALOG SQ PRN ×4 (08:05→22:14)
[2023-01-05] MEDS ORDERED: NON-FORMULARY ITEM (Evolocumab [Repatha Sureclick] 140 MG/ML Pen.Injctr) SQ SCH (09:00)
[2023-01-05] MEDS ORDERED: NON-FORMULARY ITEM (Cholecalciferol (Vitamin D3) [Vitamin D3] 2,000 UNIT Capsule) PO SCH (09:00)
--- NOTE | 2023-01-05 09:38 | PCM.NOTE ---
Date and Time: 01/05/23934 Subjective Assessment: Breathing is much improved. Does not need supplemental oxygen. No change in urination. No fevers. Comfotable respirations. reports most dramatic improvement with breathing treatments. Would like to stay one more day - Review of Systems Constitutional: No Symptoms Respiratory: No Symptoms Cardiac: No Symptoms Psychological: No Symptoms Objective Exam Neurologic Exam: alert, oriented x 3 Skin Exam: normal color Neck Exam: normal inspection Respiratory Exam: normal breath sounds Cardiovascular Exam: regular rate/rhythm OBJECTIVE DATA Vital Signs: Vital Signs - 24 hr Temp Pulse Resp BP BP Pulse Ox 01/05/23 07:34 98.2 F 89 19 173/77 93 L 01/05/23 07:30 90 18 96 01/05/23 06:00 98.7 F 87 18 164/69 93 L 01/05/23 00:00 94 L 01/04/23 23:48 87 15 93 L 01/04/23 23:00 98.1 F 90 16 149/68 94 L 01/04/23 22:19 96 01/04/23 22:00 85 15 128/63 98 01/04/23 21:30 87 15 133/62 98 01/04/23 21:00 88 17 127/66 95 01/04/23 20:30 89 16 155/68 96 01/04/23 20:00 93 H 21 145/84 98 01/04/23 19:30 94 H 19 138/70 01/04/23 19:00 93 H 18 169/73 01/04/23 18:30 87 8 L 167/74 93 L 01/04/23 18:00 88 12 163/74 93 L 01/04/23 17:30 85 15 167/102 95 01/04/23 17:20 85 17 97 01/04/23 17:11 95 01/04/23 16:30 154/70 01/04/23 16:14 73 18 97 01/04/23 16:00 75 15 169/79 96 01/04/23 15:54 96 01/04/23 15:04 97.3 F 79 22 167/84 96 Pain Assessment - Last Documented Pain Intensity 0 Intake and Output: Intake & Output 01/02/23 01/03/23 01/04/23 01/05/23 11:59 11:59 11:59 11:59 Intake Total 400 Output Total 1350 Balance -950 Weight 99.2 kg Lab Results: Lab Results-Last 24 Hours 01/04/23 01/04/23 01/04/23 Range/Units 15:15 15:15 15:15 WBC 8.7 (4.0-10.5) x10^3/uL RBC 3.79 L (4.1-5.4) x10^6/uL Hgb 12.1 (12.0-16.0) g/dL Hct 36.7 (35-47) % MCV 96.8 (78-100) fL MCH 31.9 (26-32) pg MCHC 33.0 (32-36) g/dL RDW 13.4 (11.5-14.0) % Plt Count 187 (150-450) x10^3/uL MPV 10.9 (7.5-11.0) fL Gran % 64.0 (36.0-66.0) % Immature Gran % (Auto) 0.2 (0.00-0.4) % Nucleat RBC Rel Count 0.0 (0.00-0.1) % Eos # (Auto) 0.30 (0-0.5) x10^3/uL Immature Gran # (Auto) 0.02 (0.00-0.03) x10^3u/L Absolute Lymphs (auto) 2.19 (1.0-4.6) x10^3/uL Absolute Monos (auto) 0.55 (0.0-1.3) x10^3/uL Absolute Nucleated RBC 0.00 (0.00-0.01) x10^3u/L Lymphocytes % 25.3 (24.0-44.0) % Monocytes % 6.4 (0.0-12.0) % Eosinophils % 3.5 (0.00-5.0) % Basophils % 0.6 (0.0-0.4) % Absolute Granulocytes 5.55 (1.4-6.9) x10^3/uL Basophils # 0.05 (0-0.4) x10^3/uL D-Dimer 1.66 H* (0.0-0.50) mg/L Sodium 140 (137-145) mmol/L Potassium 4.3 (3.5-5.1) mmol/L Chloride 100 (98-107) mmol/L Carbon Dioxide 32 H (22-30) mmol/L Anion Gap 12.3 (5-15) MEQ/L BUN 28 H (7-17) mg/dL Creatinine 1.67 H (0.52-1.04) mg/dL Estimated GFR 32.0 ML/MIN Glucose 223 H (74-106) mg/dL POC Glucometer (74 to 106) mg/dL Lactic Acid (0.4-2.0) Calcium 9.2 (8.4-10.2) mg/dL Magnesium 2.2 (1.6-2.3) mg/dL Total Bilirubin 0.50 (0.2-1.3) mg/dL AST 28 (14-36) U/L ALT 18 (0-35) U/L Alkaline Phosphatase 112 (38-126) U/L Troponin I (0.000-0.034) ng/mL NT-Pro-B Natriuret Pep (<300) pg/mL Serum Total Protein 7.4 (6.3-8.2) g/dL Albumin 4.0 (3.5-5.0) g/dL TSH 3rd Generation (0.47-4.68) mIU/L Urine Color (Yellow) Urine Appearance (Clear) Urine pH (4.6-8.0) Ur Specific [place] (1.005-1.030) Urine Protein (Negative) Urine Glucose (UA) (Negative) mg/dL Urine Ketones (Negative) Urine Blood (Negative) Urine Nitrite (Negative) Urine Bilirubin (Negative) Urine Urobilinogen (0.2) mg/dL Ur Leukocyte Esterase (Negative) U Hyaline Cast (Auto) (0-2) /LPF Urine Microscopic RBC (0-5) /HPF Urine Microscopic WBC (0-5) /HPF Ur Epithelial Cells (None Seen) /HPF Urine Bacteria (None Seen) /HPF Urine Culture Reflexed (NO) Influenza Type A Ag (NEGATIVE) Influenza Type B Ag (NEGATIVE) RSV (PCR) (NEGATIVE) SARS-CoV-2 (PCR) (NEGATIVE) 01/04/23 01/04/23 01/04/23 Range/Units 15:15 15:15 15:15 WBC (4.0-10.5) x10^3/uL RBC (4.1-5.4) x10^6/uL Hgb (12.0-16.0) g/dL Hct (35-47) % MCV (78-100) fL MCH (26-32) pg MCHC (32-36) g/dL RDW (11.5-14.0) % Plt Count (150-450) x10^3/uL MPV (7.5-11.0) fL Gran % (36.0-66.0) % Immature Gran % (Auto) (0.00-0.4) % Nucleat RBC Rel Count (0.00-0.1) % Eos # (Auto) (0-0.5) x10^3/uL Immature Gran # (Auto) (0.00-0.03) x10^3u/L Absolute Lymphs (auto) (1.0-4.6) x10^3/uL Absolute Monos (auto) (0.0-1.3) x10^3/uL Absolute Nucleated RBC (0.00-0.01) x10^3u/L Lymphocytes % (24.0-44.0) % Monocytes % (0.0-12.0) % Eosinophils % (0.00-5.0) % Basophils % (0.0-0.4) % Absolute Granulocytes (1.4-6.9) x10^3/uL Basophils # (0-0.4) x10^3/uL D-Dimer (0.0-0.50) mg/L Sodium (137-145) mmol/L Potassium (3.5-5.1) mmol/L Chloride (98-107) mmol/L Carbon Dioxide (22-30) mmol/L Anion Gap (5-15) MEQ/L BUN (7-17) mg/dL Creatinine (0.52-1.04) mg/dL Estimated GFR ML/MIN Glucose (74-106) mg/dL POC Glucometer (74 to 106) mg/dL Lactic Acid (0.4-2.0) Calcium (8.4-10.2) mg/dL Magnesium (1.6-2.3) mg/dL Total Bilirubin (0.2-1.3) mg/dL AST (14-36) U/L ALT (0-35) U/L Alkaline Phosphatase (38-126) U/L Troponin I < 0.012 (0.000-0.034) ng/mL NT-Pro-B Natriuret Pep 763 (<300) pg/mL Serum Total Protein (6.3-8.2) g/dL Albumin (3.5-5.0) g/dL TSH 3rd Generation (0.47-4.68) mIU/L Urine Color Yellow (Yellow) Urine Appearance Clear (Clear) Urine pH 5.5 (4.6-8.0) Ur Specific [place] 1.010 (1.005-1.030) Urine Protein Negative (Negative) Urine Glucose (UA) Negative (Negative) mg/dL Urine Ketones Negative (Negative) Urine Blood Negative (Negative) Urine Nitrite Negative (Negative) Urine Bilirubin Negative (Negative) Urine Urobilinogen 0.2 (0.2) mg/dL Ur Leukocyte Esterase Trace A (Negative) U Hyaline Cast (Auto) 0-2 (0-2) /LPF Urine Microscopic RBC 0-2 (0-5) /HPF Urine Microscopic WBC 3-5 (0-5) /HPF Ur Epithelial Cells None Seen (None Seen) /HPF Urine Bacteria None Seen (None Seen) /HPF Urine Culture Reflexed NO (NO) Influenza Type A Ag (NEGATIVE) Influenza Type B Ag (NEGATIVE) RSV (PCR) (NEGATIVE) SARS-CoV-2 (PCR) (NEGATIVE) 01/04/23 01/04/23 01/04/23 Range/Units 15:39 16:00 19:41 WBC (4.0-10.5) x10^3/uL RBC (4.1-5.4) x10^6/uL Hgb (12.0-16.0) g/dL Hct (35-47) % MCV (78-100) fL MCH (26-32) pg MCHC (32-36) g/dL RDW (11.5-14.0) % Plt Count (150-450) x10^3/uL MPV (7.5-11.0) fL Gran % (36.0-66.0) % Immature Gran % (Auto) (0.00-0.4) % Nucleat RBC Rel Count (0.00-0.1) % Eos # (Auto) (0-0.5) x10^3/uL Immature Gran # (Auto) (0.00-0.03) x10^3u/L Absolute Lymphs (auto) (1.0-4.6) x10^3/uL Absolute Monos (auto) (0.0-1.3) x10^3/uL Absolute Nucleated RBC (0.00-0.01) x10^3u/L Lymphocytes % (24.0-44.0) % Monocytes % (0.0-12.0) % Eosinophils % (0.00-5.0) % Basophils % (0.0-0.4) % Absolute Granulocytes (1.4-6.9) x10^3/uL Basophils # (0-0.4) x10^3/uL D-Dimer (0.0-0.50) mg/L Sodium (137-145) mmol/L Potassium (3.5-5.1) mmol/L Chloride (98-107) mmol/L Carbon Dioxide (22-30) mmol/L Anion Gap (5-15) MEQ/L BUN (7-17) mg/dL Creatinine (0.52-1.04) mg/dL Estimated GFR ML/MIN Glucose (74-106) mg/dL POC Glucometer (74 to 106) mg/dL Lactic Acid 1.7 (0.4-2.0) Calcium (8.4-10.2) mg/dL Magnesium (1.6-2.3) mg/dL Total Bilirubin (0.2-1.3) mg/dL AST (14-36) U/L ALT (0-35) U/L Alkaline Phosphatase (38-126) U/L Troponin I < 0.012 (0.000-0.034) ng/mL NT-Pro-B Natriuret Pep (<300) pg/mL Serum Total Protein (6.3-8.2) g/dL Albumin (3.5-5.0) g/dL TSH 3rd Generation (0.47-4.68) mIU/L Urine Color (Yellow) Urine Appearance (Clear) Urine pH (4.6-8.0) Ur Specific [place] (1.005-1.030) Urine Protein (Negative) Urine Glucose (UA) (Negative) mg/dL Urine Ketones (Negative) Urine Blood (Negative) Urine Nitrite (Negative) Urine Bilirubin (Negative) Urine Urobilinogen (0.2) mg/dL Ur Leukocyte Esterase (Negative) U Hyaline Cast (Auto) (0-2) /LPF Urine Microscopic RBC (0-5) /HPF Urine Microscopic WBC (0-5) /HPF Ur Epithelial Cells (None Seen) /HPF Urine Bacteria (None Seen) /HPF Urine Culture Reflexed (NO) Influenza Type A Ag NEGATIVE (NEGATIVE) Influenza Type B Ag NEGATIVE (NEGATIVE) RSV (PCR) NEGATIVE (NEGATIVE) SARS-CoV-2 (PCR) NEGATIVE (NEGATIVE) 01/04/23 01/05/23 01/05/23 Range/Units 23:50 00:00 07:20 WBC (4.0-10.5) x10^3/uL RBC (4.1-5.4) x10^6/uL Hgb (12.0-16.0) g/dL Hct (35-47) % MCV (78-100) fL MCH (26-32) pg MCHC (32-36) g/dL RDW (11.5-14.0) % Plt Count (150-450) x10^3/uL MPV (7.5-11.0) fL Gran % (36.0-66.0) % Immature Gran % (Auto) (0.00-0.4) % Nucleat RBC Rel Count (0.00-0.1) % Eos # (Auto) (0-0.5) x10^3/uL Immature Gran # (Auto) (0.00-0.03) x10^3u/L Absolute Lymphs (auto) (1.0-4.6) x10^3/uL Absolute Monos (auto) (0.0-1.3) x10^3/uL Absolute Nucleated RBC (0.00-0.01) x10^3u/L Lymphocytes % (24.0-44.0) % Monocytes % (0.0-12.0) % Eosinophils % (0.00-5.0) % Basophils % (0.0-0.4) % Absolute Granulocytes (1.4-6.9) x10^3/uL Basophils # (0-0.4) x10^3/uL D-Dimer (0.0-0.50) mg/L Sodium (137-145) mmol/L Potassium (3.5-5.1) mmol/L Chloride (98-107) mmol/L Carbon Dioxide (22-30) mmol/L Anion Gap (5-15) MEQ/L BUN (7-17) mg/dL Creatinine (0.52-1.04) mg/dL Estimated GFR ML/MIN Glucose (74-106) mg/dL POC Glucometer 341 H (74 to 106) mg/dL Lactic Acid (0.4-2.0) Calcium (8.4-10.2) mg/dL Magnesium (1.6-2.3) mg/dL Total Bilirubin (0.2-1.3) mg/dL AST (14-36) U/L ALT (0-35) U/L Alkaline Phosphatase (38-126) U/L Troponin I < 0.012 (0.000-0.034) ng/mL NT-Pro-B Natriuret Pep (<300) pg/mL Serum Total Protein (6.3-8.2) g/dL Albumin (3.5-5.0) g/dL TSH 3rd Generation 1.290 (0.47-4.68) mIU/L Urine Color (Yellow) Urine Appearance (Clear) Urine pH (4.6-8.0) Ur Specific [place] (1.005-1.030) Urine Protein (Negative) Urine Glucose (UA) (Negative) mg/dL Urine Ketones (Negative) Urine Blood (Negative) Urine Nitrite (Negative) Urine Bilirubin (Negative) Urine Urobilinogen (0.2) mg/dL Ur Leukocyte Esterase (Negative) U Hyaline Cast (Auto) (0-2) /LPF Urine Microscopic RBC (0-5) /HPF Urine Microscopic WBC (0-5) /HPF Ur Epithelial Cells (None Seen) /HPF Urine Bacteria (None Seen) /HPF Urine Culture Reflexed (NO) Influenza Type A Ag (NEGATIVE) Influenza Type B Ag (NEGATIVE) RSV (PCR) (NEGATIVE) SARS-CoV-2 (PCR) (NEGATIVE) Radiology Exams: Radiology Procedures Category Date Time Status CHEST 1 VIEW (PORTABLE) Stat Exams 01/04/23 15:40 Completed CHEST WITHOUT CONTRAST [CT] Stat Exams 01/04/23 16:44 Completed VENOUS BILATERAL EXTREMITY [US] Stat Exams 01/04/23 16:50 Completed Assessment/Plan (1) Shortness of breath Current Visit: Yes Status: Acute Assessment & Plan: Assessment/Plan (1) Shortness of breath Current Visit: Yes Status: Acute Assessment & Plan: CT chest showing right basilar infiltrate. On RA. WBC normal. No fever. ER gave Rocephin, sent BC x 2. Plan to continue Rocephin until cuktures comes back. D- Dimer elevated as well - thus concerning for PE, but cannot do CTA PE protocol as pt does not want the risk of NONI. So, will treat presumptively, until we can make a more definitive diagnostic test. Lovenox 1mg/kg SQ BID - ideal body weight - adjusted dose to 70mg SQ BID. O2 protocol. May be a component of CHF as well given BNP 763 and trace edema in legs. She is on Bumex at home 2mg daily. Will continue this Code(s): R06.02 - SHORTNESS OF BREATH (2) Hypertension Current Visit: No Status: Acute Qualifiers: Hypertension type: primary hypertension Qualified Code(s): I10 - Essential (primary) hypertension Assessment & Plan: Can continue home BP medications - Amlodipine, Carvedilol and Losartan. Monitor BP and adjust as needed Code(s): I10 - ESSENTIAL (PRIMARY) HYPERTENSION (3) Left lower lobe pneumonia Current Visit: No Status: Acute Qualifiers: Pneumonia type: due to Pneumococcus Qualified Code(s): J13 - Pneumonia due to Streptococcus pneumoniae Assessment & Plan: [place] Rocephin 1gm IV daily. BC x 2 sent Code(s): J18.9 - PNEUMONIA, UNSPECIFIED ORGANISM (4) CHF (congestive heart failure) Current Visit: No Status: Chronic Qualifiers: Heart failure type: unspecified Heart failure chronicity: unspecified Qualified Code(s): I50.9 - Heart failure, unspecified Assessment & Plan: BNP 763, + trace edema in legs, hx of CHF/CAD. Clinically stable on RA. Continue home bumex at 2mg daily Code(s): I50.9 - HEART FAILURE, UNSPECIFIED (5) Chronic kidney disease (CKD) Current Visit: Yes Status: Chronic Qualifiers: Chronic kidney disease stage: stage 3 (moderate) Chronic kidney disease stage 3 subtype: unspecified whether 3a or 3b Qualified Code(s): N18.30 - Chronic kidney disease, stage 3 unspecified Assessment & Plan: Cr 1.67, baseline. Avoid IV contrast, NSAIDs, hypotension. Dose all meds accordingly. No further work-up is needed since she has this history Code(s): N18.9 - CHRONIC KIDNEY DISEASE, UNSPECIFIED (6) Diabetes mellitus, insulin dependent (IDDM), controlled Current Visit: Yes Status: Chronic Assessment & Plan: ADA diet, resumed home regimen, accucheck qAC and qHS Code(s): QBO2920 - Code(s): R06.02 - SHORTNESS OF BREATH Telemedicine Encounter - Telemedicine Encounter Telemedicine Encounter: The entirety of this encounter was performed via Telemedicine"
[2023-01-05] MEDS ORDERED: NON-FORMULARY ITEM (Multivitamin [Multi-Vitamin Daily] 1 EACH Tablet) PO SCH (10:00)
[2023-01-05] MEDS ORDERED: NON-FORMULARY ITEM (Insulin Glargine,Hum.Rec.Anlog [Basaglar Kwikpen U-100] 100 UNIT/ML In SQ SCH (10:00)
[2023-01-05] MEDS ORDERED: NON-FORMULARY ITEM (Amlodipine Besylate [Amlodipine Besylate] 10 MG Tablet) PO SCH (10:00)
[2023-01-05] MEDS ORDERED: NON-FORMULARY ITEM (Bumetanide [Bumex] 2 MG Tablet) PO SCH (10:00)
[2023-01-05] MEDS ORDERED: NON-FORMULARY ITEM (Gabapentin [Neurontin] 600 MG Tablet) PO SCH (10:00)
[2023-01-05] MEDS ORDERED: Cymbalta 30 MG Capsule PO SCH (10:00)
[2023-01-05] MEDS ORDERED: NON-FORMULARY ITEM (Duloxetine Hcl [Cymbalta] 60 MG Capsule.Dr) PO SCH (10:00)
[2023-01-05] MEDS ORDERED: NON-FORMULARY ITEM (Losartan Potassium [Losartan Potassium] 25 MG Tablet) PO SCH (10:00)
[2023-01-05] MEDS ORDERED: NON-FORMULARY ITEM (Vibegron [Gemtesa] 75 MG Tablet) PO SCH (10:00)
[2023-01-05] MEDS ORDERED: NON-FORMULARY ITEM (Cyanocobalamin (Vitamin B-12) [B-12] 1,000 MCG Tablet) PO SCH (10:00)
[2023-01-05] MEDS ORDERED: ENOXAPARIN SODIUM SQ SCH ×2 (10:00→22:00)
[2023-01-05] MEDS: zyPREXA 5MG TABLET PO SCH ×2 (10:38→21:16)
[2023-01-05] MEDS: Imdur 30 MG PO SCH (10:38)
[2023-01-05] MEDS: AMARYL 4 MG PO SCH (10:38)
[2023-01-05] MEDS: NORVASC 5 MG PO SCH (10:39)
[2023-01-05] MEDS: Cozaar 50 MG PO SCH (10:39)
[2023-01-05] MEDS: THERAGRAN MULTIVITAMIN PO SCH (10:39)
[2023-01-05] MEDS: Vitamin B-12 500 MCG PO SCH (10:39)
[2023-01-05] MEDS: Singulair 10 MG PO SCH (10:40)
[2023-01-05] MEDS: BUMEX 1 MG PO SCH (10:40)
[2023-01-05] MEDS: Flomax 0.4 MG PO SCH (10:40)
[2023-01-05] MEDS: PLAVIX Tablet PO SCH (10:40)
[2023-01-05] MEDS: NEURONTIN PO SCH ×4 (10:40→21:17)
[2023-01-05] MEDS: ROCEPHIN 1 Gm-D5w 50 ml Bag** 1 G/50 ML IVPB IV SCH (10:49)
[2023-01-05] MEDS ORDERED: MEDICATION INTERVENTION MC SCH (11:00)
[2023-01-05] MEDS: PATIENT OWN MEDICATION PO SCH ×2 (11:16)
[2023-01-05] MEDS ORDERED: HUMALOG SQ SCH ×2 (12:00→17:00)
[2023-01-05] MEDS ORDERED: Lantus Insulin SQ SCH ×2 (12:00→17:00)
[2023-01-05] MEDS: Lantus Insulin SQ SCH (12:15)
[2023-01-05] MEDS: ENOXAPARIN SODIUM SQ SCH (21:16)
[2023-01-05] MEDS ORDERED: DESYREL 50 MG PO SCH (22:00)
[2023-01-05] MEDS ORDERED: ECOTRIN 81 MG PO SCH (22:00)
[2023-01-05] MEDS ORDERED: Toprol Xl 50 MG PO SCH (22:00)
[2023-01-05] MEDS ORDERED: BABY ASPIRIN 81 MG CHEW PO SCH (22:00)
[2023-01-05] MEDS ORDERED: ZYLOPRIM 100 MG PO SCH (22:00)
[2023-01-05] MEDS ORDERED: ZYLOPRIM 300 MG PO SCH (22:00)
[2023-01-06] MEDS: DUONEB 0.5-3 MG/3 ml Neb IH SCH (07:03)
[2023-01-06 07:17] VITALS: BP 180/80; PULSE 76; O2SAT 96
[2023-01-06] MEDS ORDERED: HUMALOG SQ SCH (08:00)
[2023-01-06] MEDS ORDERED: NON-FORMULARY ITEM (Insulin Lispro 1 UNIT Ml) SQ SCH (08:00)
[2023-01-06 09:23] LABS: Hematocrit 34.6 % (35-47); Hemoglobin 11.4 g/dL (12.0-16.0); Mean Cell Volume 95.6 fL (78-100); Mean Corpuscular Hemoglobin 31.5 pg (26-32); Mean Corpuscular Hgb Concent. 32.9 g/dL (32-36); Mean Platelet Volume 10.9 fL (7.5-11.0); Platelet Count 182 x10^3/uL (150-450); Red Blood Count 3.62 x10^6/uL (4.1-5.4); Red Cell Distribution Width 13.4 % (11.5-14.0); White Blood Count 11.1 x10^3/uL (4.0-10.5)
[2023-01-06] MEDS: ENOXAPARIN SODIUM SQ SCH (09:38)
[2023-01-06] MEDS: PATIENT OWN MEDICATION PO SCH ×2 (09:39)
[2023-01-06] MEDS: NEURONTIN PO SCH (09:41)
[2023-01-06] MEDS: Singulair 10 MG PO SCH (09:42)
[2023-01-06] MEDS: Imdur 30 MG PO SCH (09:42)
[2023-01-06] MEDS: NORVASC 5 MG PO SCH (09:42)
[2023-01-06] MEDS: zyPREXA 5MG TABLET PO SCH (09:42)
[2023-01-06] MEDS: AMARYL 4 MG PO SCH (09:42)
[2023-01-06] MEDS: THERAGRAN MULTIVITAMIN PO SCH (09:43)
[2023-01-06] MEDS: Vitamin B-12 500 MCG PO SCH (09:43)
[2023-01-06] MEDS: BUMEX 1 MG PO SCH (09:43)
[2023-01-06] MEDS: PLAVIX Tablet PO SCH (09:43)
[2023-01-06] MEDS: Flomax 0.4 MG PO SCH (09:43)
[2023-01-06] MEDS: Lantus Insulin SQ SCH (09:44)
[2023-01-06] MEDS: ROCEPHIN 1 Gm-D5w 50 ml Bag** 1 G/50 ML IVPB IV SCH (09:45)
[2023-01-06] MEDS: Cozaar 50 MG PO SCH (09:46)
[2023-01-06 09:50] LABS: ALBUMIN 3.6 g/dL (3.5-5.0); ANION GAP 10.3 MEQ/L (5-15); BILIRUBIN,TOTAL 0.3 mg/dL (0.2-1.3); Calcium 8.7 mg/dL (8.4-10.2); Creatinine 1 1.76 mg/dL (0.52-1.04); EST GLOMERULAR FILTRATION RATE 30.1 ML/MIN; Potassium 3.8 mmol/L (3.5-5.1); Total Protein 6.7 g/dL (6.3-8.2)
[2023-01-06] MEDS ORDERED: VITAMIN D PO SCH (10:00)
--- NOTE | 2023-01-06 11:13 | PCM.DS ---
Discharge Summary Date of Admission: 01/04/23 22:59 Date of Discharge: 06 January 2023 Admitting Physician: YESI ANDRADE DO Primary Care Provider: MARIO,SONIA Allergies Allergies hydromorphone [From Dilaudid] Allergy (Severe, Verified 11/26/22 13:24) Difficulty Breathing meclofenamic acid [From Meclomen] Allergy (Severe, Verified 11/26/22 13:24) Skin Irritation morphine Allergy (Severe, Verified 11/26/22 13:24) Difficulty Breathing Sulfa (Sulfonamide Antibiotics) Allergy (Severe, Verified 11/26/22 13:24) Extreme constipation ciprofloxacin [From Cipro] Allergy (Intermediate, Verified 11/26/22 13:24) Itching diphenhydramine [From Benadryl] Allergy (Intermediate, Verified 11/26/22 13:24) Swelling of Tongue and Lips pt unable to take po due to swelling of tongue and lips. Can take IM. Hospital Summary - Hospital Course Hospital Course: patient admitted with COPD exacerbation, better with breathing treatments. Will discharge with 50 of prednisone daily and 5 day course of azithromycin - Vitals & Intake/Output Vital Signs: Vital Signs Temperature 97.1 F 01/06/23 07:16 Pulse Rate 76 01/06/23 07:16 Respiratory Rate 18 01/06/23 07:16 Blood Pressure 180/80 01/06/23 07:16 O2 Sat by Pulse Oximetry 96 01/06/23 07:16 Intake & Output: Intake & Output 01/03/23 01/04/23 01/05/23 01/06/23 11:59 11:59 11:59 11:59 Intake Total 400 1020 Output Total 1350 2400 Balance -950 -1380 Weight 99.2 kg 101.7 kg - Lab Result Diagrams: 01/06/23 09:05 01/06/23 09:05 Lab Results-Last 24 Hrs: Lab Results-Last 24 Hours 01/05/23 01/05/23 01/05/23 Range/Units 11:53 16:42 22:06 WBC (4.0-10.5) x10^3/uL RBC (4.1-5.4) x10^6/uL Hgb (12.0-16.0) g/dL Hct (35-47) % MCV (78-100) fL MCH (26-32) pg MCHC (32-36) g/dL RDW (11.5-14.0) % Plt Count (150-450) x10^3/uL MPV (7.5-11.0) fL D-Dimer (0.0-0.50) mg/L Sodium (137-145) mmol/L Potassium (3.5-5.1) mmol/L Chloride (98-107) mmol/L Carbon Dioxide (22-30) mmol/L Anion Gap (5-15) MEQ/L BUN (7-17) mg/dL Creatinine (0.52-1.04) mg/dL Estimated GFR ML/MIN Glucose (74-106) mg/dL POC Glucometer 300 H 266 H 206 H (74 to 106) mg/dL Calcium (8.4-10.2) mg/dL Total Bilirubin (0.2-1.3) mg/dL AST (14-36) U/L ALT (0-35) U/L Alkaline Phosphatase (38-126) U/L Serum Total Protein (6.3-8.2) g/dL Albumin (3.5-5.0) g/dL 01/06/23 01/06/23 01/06/23 Range/Units 06:58 09:05 09:05 WBC 11.1 H (4.0-10.5) x10^3/uL RBC 3.62 L (4.1-5.4) x10^6/uL Hgb 11.4 L (12.0-16.0) g/dL Hct 34.6 L (35-47) % MCV 95.6 (78-100) fL MCH 31.5 (26-32) pg MCHC 32.9 (32-36) g/dL RDW 13.4 (11.5-14.0) % Plt Count 182 (150-450) x10^3/uL MPV 10.9 (7.5-11.0) fL D-Dimer (0.0-0.50) mg/L Sodium 140 (137-145) mmol/L Potassium 3.8 (3.5-5.1) mmol/L Chloride 103 (98-107) mmol/L Carbon Dioxide 31 H (22-30) mmol/L Anion Gap 10.3 (5-15) MEQ/L BUN 30 H (7-17) mg/dL Creatinine 1.76 H (0.52-1.04) mg/dL Estimated GFR 30.1 ML/MIN Glucose 206 H (74-106) mg/dL POC Glucometer 137 H (74 to 106) mg/dL Calcium 8.7 (8.4-10.2) mg/dL Total Bilirubin 0.30 (0.2-1.3) mg/dL AST 20 (14-36) U/L ALT 18 (0-35) U/L Alkaline Phosphatase 109 (38-126) U/L Serum Total Protein 6.7 (6.3-8.2) g/dL Albumin 3.6 (3.5-5.0) g/dL 01/06/23 Range/Units 09:21 WBC (4.0-10.5) x10^3/uL RBC (4.1-5.4) x10^6/uL Hgb (12.0-16.0) g/dL Hct (35-47) % MCV (78-100) fL MCH (26-32) pg MCHC (32-36) g/dL RDW (11.5-14.0) % Plt Count (150-450) x10^3/uL MPV (7.5-11.0) fL D-Dimer 0.99 H* (0.0-0.50) mg/L Sodium (137-145) mmol/L Potassium (3.5-5.1) mmol/L Chloride (98-107) mmol/L Carbon Dioxide (22-30) mmol/L Anion Gap (5-15) MEQ/L BUN (7-17) mg/dL Creatinine (0.52-1.04) mg/dL Estimated GFR ML/MIN Glucose (74-106) mg/dL POC Glucometer (74 to 106) mg/dL Calcium (8.4-10.2) mg/dL Total Bilirubin (0.2-1.3) mg/dL AST (14-36) U/L ALT (0-35) U/L Alkaline Phosphatase (38-126) U/L Serum Total Protein (6.3-8.2) g/dL Albumin (3.5-5.0) g/dL Micro Results-Entire Visit: Microbiology 01/04/23 16:06 Blood Culture - Preliminary Blood 01/04/23 16:00 Blood Culture - Preliminary Blood Accuchecks Date 01/06/23 Date 01/05/23 Date 01/05/23 Date 01/05/23 Time 07:16 Time 16:45 Time 11:57 - Radiology Exams Ordered Rad Exams-Entire Visit: Radiology Procedures Category Date Time Status CHEST 1 VIEW (PORTABLE) Stat Exams 01/04/23 15:40 Completed CHEST WITHOUT CONTRAST [CT] Stat Exams 01/04/23 16:44 Completed VENOUS BILATERAL EXTREMITY [US] Stat Exams 01/04/23 16:50 Completed - Procedures and Test Procedures and Tests throughout Hospitalization: Therapy Orders & Screens 01/04/23 16:13 Respiratory Therapy Assessment DAILY Comment: 01/04/23 23:10 Respiratory Therapy Consult ROUTINE Comment: Reason For Exam: 01/04/23 23:48 Respiratory Therapy Assessment DAILY Comment: Diagnosis: SOB Discharge Exam General Appearance: no apparent distress Neurologic Exam: alert, oriented x 3, cooperative Ears, Nose, Throat Exam: normal ENT inspection Neck Exam: normal inspection Respiratory Exam: normal breath sounds Cardiovascular Exam: regular rate/rhythm, normal heart sounds Gastrointestinal/Abdomen Exam: soft, normal bowel sounds Final Diagnosis/Problem List - Final Discharge Diagnosis/Problem (1) Shortness of breath Status: Acute Code(s): R06.02 - SHORTNESS OF BREATH - Discharge Disposition: Home, Self-Care Condition: Good Prescriptions: New Azithromycin [Azithromycin 250 mg Pack] 250 mg PO DAILY 5 Days #5 tablet predniSONE [Prednisone] 50 mg PO DAILY 5 Days #5 tablet Continue Multivitamin [Multi-Vitamin Daily] 1 each PO DAILY Trazodone HCl 50 mg [Desyrel 50 mg] 100 mg PO HS Duloxetine HCl [Cymbalta] 60 mg PO DAILY Gabapentin [Neurontin] 600 mg PO QID Potassium Chloride Tab* [Klor Con] 50 meq PO DAILY Isosorbide Mononitrate 30 mg [Imdur 30 MG] 30 mg PO DAILY Bumetanide [Bumex] 2 mg PO DAILY Nitroglycerin 0.4 mg Tablet [Nitrostat 0.4 MG Tablet] 0.4 mg SL Q5MIN PRN MR X 3 PRN PRN Reason: Pain Metoprolol Succinate 50 mg [Toprol Xl 50 MG] 50 mg PO HS Clopidogrel Bisulfate [PLAVIX Tablet] 75 mg PO DAILY allopurinoL [Zyloprim] 300 mg PO HS Insulin Lispro [Humalog] 0 unit SQ UD Glimepiride 4 mg [Amaryl 4 mg] 4 mg PO DAILY Aspirin 81 gm Chew [Baby Aspirin 81 mg Chew] 81 mg PO HS Losartan Potassium 25 mg PO DAILY OLANZapine [Olanzapine] 5 mg PO BID Amlodipine Besylate 10 mg PO DAILY Cholecalciferol (Vitamin D3) [Vitamin D3] 2,000 unit PO UD Evolocumab [Repatha Sureclick] 140 mg SQ UD Insulin Glargine,Hum.rec.anlog [Basaglar Kwikpen U-100] 6 unit SQ DAILY Cyanocobalamin (Vitamin B-12) [B-12] 1,000 mcg PO DAILY Vibegron [Gemtesa] 1 tab PO DAILY Montelukast Sodium 10 mg [Singulair 10 MG] 1 tab PO DAILY Tamsulosin HCl 0.4 mg [Flomax 0.4 MG] 1 cap PO DAILY Acetaminophen [Tylenol Arthritis] 650 mg PO BID PRN PRN Reason: Pain Mupirocin [Bactroban OINTMENT] 0 gm TP TID Guaifenesin 600 mg ER [Mucinex 600MG ER Tabs] 600 mg PO BID 6 Days #12 tablet Instructions: Exacerbation of COPD (DC) Additional Instructions: 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 Call for any questions or concerns Forms: Discharge Instructions
== END 2023-01-06 10:52 | disposition home health service (06) ==
LOC: ED 14:44 → MED SURG 22:59 → UNDOADMOB 22:59
PROVIDERS: ADMIT Internal Medicine; ATTEND General Practice
DX: J44.1 Chronic obstructive pulmonary disease with (acute) exacerbation (principal); J18.9 Pneumonia, unspecified organism; R06.02 Shortness of breath; I25.10 Atherosclerotic heart disease of native coronary artery without angina pectoris; E11.22 Type 2 diabetes mellitus with diabetic chronic kidney disease; I12.9 Hypertensive chronic kidney disease with stage 1 through stage 4 chronic kidney disease, or unspecified chronic kidney disease; N18.30 Chronic kidney disease, stage 3 unspecified; E78.5 Hyperlipidemia, unspecified; Z20.828 Contact with and (suspected) exposure to other viral communicable diseases; Z79.01 Long term (current) use of anticoagulants; Z85.3 Personal history of malignant neoplasm of breast; Z79.899 Other long term (current) drug therapy
CPT/HCPCS: 0241U; 36000; 36415; 71045; 71250; 80053; 81001; 82947; 83605; 83735; 83880; 84443; 84484; 85025; 85027; 85379; 87040; 93041; 93268; 93970; 94640; 94760; 94762; 96365; 96374; 99285; G0378; Q3014; J0696; J1650; J1817; J2930; A9270-GY

== ENCOUNTER 2024-01-12 20:44 | Inpatient (IN) | payer MEDICARE ==
--- NOTE | 2024-01-12 20:54 | ERPHSYRPT ---
- History of Present Illness Time Seen by Provider: 01/12/24 20:53 Source: patient, EMS, old records Physician History: This is an obese 73-year-old white female patient of Dr. Martin and nephrol ogist Dr. Sylvester who was brought to the emergency department by the paramedics from home. Patient was not feeling very well today. She felt feverish around 1:00 this afternoon and noticed some chills at 1630 this afternoon. Patient had a tiny emesis just upon arrival to the emergency department. Patient ate 3 meals today and has been drinking without difficulty. She denies abdominal pain. She does not have chest pain. She does not have shortness of breath. Patient has a history of hypertension, arthritis, CHF, diabetes, fibromyalgia, irritable bowel syndrome and stage III chronic renal disease. Timing/Duration: today Fever Severity: moderate Fever Therapy RECREATIONAL THERAPY AIDE: none Associated Symptoms: weakness (I will), No abdominal pain, No diaphoresis, No shortness of breath, No sore throat, No stiff neck Allergies/Adverse Reactions: hydromorphone [From Dilaudid] Allergy (Severe, Verified 01/12/24 21:07) Difficulty Breathing meclofenamic acid [From Meclomen] Allergy (Severe, Verified 01/12/24 21:07) Skin Irritation morphine Allergy (Severe, Verified 01/12/24 21:07) Difficulty Breathing Sulfa (Sulfonamide Antibiotics) Allergy (Severe, Verified 01/12/24 21:07) Extreme constipation ciprofloxacin [From Cipro] Allergy (Intermediate, Verified 01/12/24 21:07) Itching diphenhydramine [From Benadryl] Allergy (Intermediate, Verified 01/12/24 21:07) Swelling of Tongue and Lips pt unable to take po due to swelling of tongue and lips. Can take IM. Home Medications: Bumetanide [Bumex] 2 mg PO DAILY 08/20/17 [History] Duloxetine HCl [Cymbalta] 60 mg PO DAILY 08/20/17 [History] Gabapentin [Neurontin] 600 mg PO QID 08/20/17 [History] Isosorbide Mononitrate 30 mg [Imdur 30 MG] 30 mg PO DAILY 08/20/17 [History] Multivitamin [Multi-Vitamin Daily] 1 each PO DAILY 08/20/17 [History] Nitroglycerin 0.4 mg Tablet [Nitrostat 0.4 MG Tablet] 0.4 mg SL Q5MIN PRN MR X 3 PRN 08/20/17 [History] Potassium Chloride Tab* [Klor Con] 50 meq PO DAILY 08/20/17 [History] Trazodone HCl 50 mg [Desyrel 50 mg] 100 mg PO HS 08/20/17 [History] Metoprolol Succinate 50 mg [Toprol Xl 50 MG] 50 mg PO HS 12/16/17 [History] Clopidogrel Bisulfate [PLAVIX Tablet] 75 mg PO DAILY 03/17/19 [History] Insulin Lispro [Humalog] 0 unit SQ UD 03/17/19 [History] allopurinoL [Zyloprim] 300 mg PO HS 03/17/19 [History] Glimepiride 4 mg [Amaryl 4 mg] 4 mg PO DAILY 06/12/19 [History] Amlodipine Besylate 10 mg PO DAILY 10/20/19 [History] Aspirin 81 gm Chew [Baby Aspirin 81 mg Chew] 81 mg PO HS 10/20/19 [History] Cholecalciferol (Vitamin D3) [Vitamin D3] 2,000 unit PO UD 10/20/19 [History] Losartan Potassium 25 mg PO DAILY 10/20/19 [History] OLANZapine [Olanzapine] 5 mg PO BID 10/20/19 [History] Evolocumab [Repatha Sureclick] 140 mg SQ UD 03/04/20 [History] Insulin Glargine,Hum.rec.anlog [Basaglar Kwikpen U-100] 6 unit SQ DAILY 03/04/20 [History] Cyanocobalamin (Vitamin B-12) [B-12] 1,000 mcg PO DAILY 03/05/20 [History] Acetaminophen [Tylenol Arthritis] 650 mg PO BID PRN 11/26/22 [History] Montelukast Sodium 10 mg [Singulair 10 MG] 1 tab PO DAILY 11/26/22 [History] Tamsulosin HCl 0.4 mg [Flomax 0.4 MG] 1 cap PO DAILY 11/26/22 [History] Vibegron [Gemtesa] 1 tab PO DAILY 11/26/22 [History] Hx Tetanus, Diphtheria Vaccination/Date Given: Yes Hx Influenza Vaccination/Date Given: Yes Hx Pneumococcal Vaccination/Date Given: Yes Travel Risk - International Travel Have you traveled outside of the country in past 3 weeks: No - Emerging Infectious Disease Are you exhibiting symptoms associated with any current EIDs: Yes Symptoms: Fever, Headaches/Body Aches/ - Review of Systems Constitutional: Weakness (Mild generalized) Eyes: No Symptoms Ears, Nose, & Throat: No Symptoms Respiratory: No Symptoms Cardiac: No Symptoms Abdominal/Gastrointestinal: No Symptoms Genitourinary Symptoms: No Symptoms Musculoskeletal: No Symptoms Skin: No Symptoms Neurological: No Symptoms Psychological: No Symptoms Endocrine: No Symptoms Hematologic/Lymphatic: No Symptoms Immunological/Allergic: No Symptoms All Other Systems: Reviewed and Negative - Past Medical History Pertinent Past Medical History: Yes Neurological History: No Pertinent History ENT History: Cataracts Cardiac History: Hypertension Respiratory History: No Pertinent History, CHF Endocrine Medical History: Diabetes Type II Musculoskeletal History: Arthritis, Fibromyalgia GI Medical History: Irritable Bowel History: Renal Disease (CKD 3), Other Psycho-Social History: Anxiety, Depression Female Reproductive Disorders: Breast Cancer Other Medical History: ADMITTED FOR 11/26 FOR PNA,01/04 FOR BLOOD CLOTS AND ANTIBIOTICS FOR RESIDUAL PNA. LUMBAR SX TLIF MAR 2020, CKD STAGE 4, CONGESTIVE HEART FAILURE, TAVR 2015, DM, LUPUS, IBS, GERD, ANXIETY, DEPRESSION, BIPOLAR. BROKEN RLE. SX: INSTESTINAL BYPASS AND REVERSAL, LEFT MASTECTOMY, TAVER, LUMBAR LAMINECTOMY 2016, STEROID INJECTIONS. - Past Surgical History Past Surgical History: Yes Neuro Surgical History: No Pertinent History Cardiac: Other Respiratory: No Pertinent History Gastrointestinal: Appendectomy, Cholecystectomy Genitourinary: No Pertinent History Musculoskeletal: No Pertinent History Female Surgical History: Hysterectomy, Section, Tubal Ligation, Lump ectomy Other Surgical History: intestinal bypass and then reverse,sinus surgery times 2 roof/mouth then sinus surgery nose,left foot planters wart,right breast tumor,rt ankle/right leg sx after fx,left breast mastectomy with sentinel removed,6 marek steroid inj,t.a.v.r.-transcatheter aortic value replacement,lumbar laminectomy, steroid injections in back multiple times a year Significant Family History: no pertinent family hx - Social History Smoking Status: Never smoker Exposure to second hand smoke: No Drug Use: none Patient Lives Alone: No - Nursing Vital Signs Nursing Vital Signs: Initial Vital Signs Temperature 101.1 F 01/12/24 20:55 Pulse Rate 56 L 01/12/24 20:55 Respiratory Rate 20 01/12/24 20:55 Blood Pressure 114/89 01/12/24 20:55 O2 Sat by Pulse Oximetry 93 L 01/12/24 20:55 Pain Scale Pain Intensity 0 - Physical Exam General Appearance: no apparent distress, alert, obese Eye Exam: PERRL/EOMI, eyes nml inspection ENT Exam: normal ENT inspection, no apparent trauma, hearing grossly normal, TMs normal Neck Exam: normal inspection, non-tender, supple, full range of motion, trachea midline Respiratory Exam: normal breath sounds, lungs clear, no respiratory distress, no accessory muscle use, No chest non-tender, No respiratory distress Cardiovascular/Chest Exam: normal heart sounds, regular rate/rhythm Gastrointestinal/Abdominal Exam: soft, non tender, no distention, no mass, no guarding, no ecchymosis, no organomegaly, no pulsatile mass, normal bowel sounds Pelvic Exam: not done Rectal Exam: not done Extremity Exam: non-tender, normal range of motion, normal inspection, normal capillary refill, no calf tenderness, no pedal edema, pelvis stable Neurologic Exam: alert, oriented x 3, cooperative, 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 tested, normal mood/affect, nml cerebellar function, nml station & gait (Patient walked to the bathroom and back to her room without difficulty), sensation nml Skin Exam: normal color, warm, dry Lymphatic: No adenopathy SpO2 Interpretation: normal O2 Delivery: Room Air - Course Nursing assessment & vital signs reviewed: Yes Ordered Tests: Active Orders 24 hr Category Date Time Status IV Insertion STAT Care 01/12/24 21:21 Active Oxygen-ED Only Nasal Cannula 2 lpm Care 01/12/24 22:19 Active Pulse Oximetry (ED) STAT Care 01/12/24 21:21 Active CHEST 1 VIEW (PORTABLE) Stat Exams 01/12/24 21:22 Taken BLOOD CULTURE Stat Lab 01/12/24 22:04 Received CBC W DIFF Stat Lab 01/12/24 21:52 Completed CMP Stat Lab 01/12/24 21:52 Completed CULTURE,URINE Stat Lab 01/12/24 20:45 Received Lactic Acid Stat Lab 01/12/24 21:48 Completed MAG [MAGNESIUM] Stat Lab 01/12/24 21:52 Completed MONO SCREEN Stat Lab 01/12/24 21:52 Completed UA W/RFX UR CULTURE Stat Lab 01/12/24 20:45 Completed Uric Acid Stat Lab 01/12/24 21:52 Completed Urine Protein/Creatinine Ratio [TP/CR Urine Ratio] Stat Lab 01/12/24 22:30 Completed Medication Summary Generic Name Dose Route Start Last Admin Trade Name hCapo PRN Reason Stop Dose Admin Sodium Chloride 1,000 mls @ 100 mls/hr 01/12/24 21:30 01/12/24 23:11 Sodium Chloride 0.9% 1000 Ml IV 02/11/24 21:29 500 mls/hr .Q10H CESAR Infusion Ceftriaxone Sodium 1 gm in 100 mls @ 200 mls/hr 01/12/24 22:56 01/12/24 23:00 Rocephin 1 Gm / 100 Ml Nacl IV 01/12/24 23:25 200 mls/hr STAT ONE 200 mls/hr Administration Discontinued Medications Generic Name Dose Route Start Last Admin Trade Name Chapo PRN Reason Stop Dose Admin Acetaminophen 650 mg 01/12/24 21:21 01/12/24 21:51 Acetaminophen 325 Mg Tablet PO 01/12/24 21:22 650 mg STAT STA Administration Acetaminophen Confirm 01/12/24 21:48 Acetaminophen 325 Mg Tablet Administered 01/12/24 21:49 Dose 650 mg .ROUTE .STK-MED ONE Ceftriaxone Sodium Confirm 01/12/24 22:59 Rocephin 1 Gm / 100 Ml Nacl Administered 01/12/24 23:00 Dose 1 gm in 100 mls @ ud IV .STK-MED ONE Ondansetron HCl 4 mg 01/12/24 21:21 01/12/24 21:52 Ondansetron Hcl 4 Mg/2 Ml Vial IV 01/12/24 21:22 4 mg STAT STA Administration Ondansetron HCl Confirm 01/12/24 21:48 Ondansetron Hcl 4 Mg/2 Ml Vial Administered 01/12/24 21:49 Dose 4 mg .ROUTE .STK-MED ONE Lab/Rad Data: Laboratory Result Diagrams 01/12/24 21:52 01/12/24 21:52 Laboratory Results 07/08/24 07/08/24 07/08/24 Range/Units 22:30 21:52 21:52 WBC (3.98-10.04) x10^3/uL RBC (3.93-5.22) x10^6/uL Hgb (11.2-15.7) g/dL Hct (34.1-44.9) % MCV (79.4-94.8) fL MCH (25.6-32.2) pg MCHC (32.2-35.5) g/dL RDW (11.7-14.4) % Plt Count (182-369) x10^3/uL MPV (9.4-12.3) fL Gran % (34.0-71.1) % Immature Gran % (Auto) (0.001-0.429) % Nucleat RBC Rel Count (0.00-0.2) % Eos # (Auto) (0.04-0.36) x10^3/uL Immature Gran # (Auto) (0.001-0.031) x10^3u/L Absolute Lymphs (auto) (1.18-3.74) x10^3/uL Absolute Monos (auto) (0.24-0.86) x10^3/uL Absolute Nucleated RBC (0.00-0.012) x10^3u/L Lymphocytes % (19.3-51.7) % Monocytes % (4.7-12.5) % Eosinophils % (0.7-5.8) % Basophils % (0.1-1.2) % Absolute Granulocytes (1.56-6.13) x10^3/uL Basophils # (0.01-0.08) x10^3/uL Sodium (135-145) mmol/L Potassium (3.5-5.1) mmol/L Chloride (98-107) mmol/L Carbon Dioxide (22-30) mmol/L Anion Gap (5-15) MEQ/L BUN (7-17) mg/dL Creatinine (0.52-1.04) mg/dL Estimated GFR ML/MIN Glucose (74-106) mg/dL Lactic Acid (0.4-2.0) Uric Acid 3.9 (2.6-6.0) mg/dL Calcium (8.4-10.2) mg/dL Magnesium (1.6-2.3) mg/dL Total Bilirubin (0.2-1.3) mg/dL AST (14-36) U/L ALT (0-35) U/L Alkaline Phosphatase (38-126) U/L Serum Total Protein (6.3-8.2) g/dL Albumin (3.5-5.0) g/dL 25-OH Vitamin D Total 78.4 (30-100) ng/mL Urine Color (Yellow) Urine Appearance (Clear) Urine pH (4.6-8.0) Ur Specific [place] (1.005-1.030) Urine Protein (Negative) Urine Glucose (UA) (Negative) mg/dL Urine Ketones (Negative) Urine Blood (Negative) Urine Nitrite (Negative) Urine Bilirubin (Negative) Urine Urobilinogen (0.2) mg/dL Ur Leukocyte Esterase (Negative) U Hyaline Cast (Auto) (0-2) /LPF Urine Microscopic RBC (0-5) /HPF Urine Microscopic WBC (0-5) /HPF Ur Epithelial Cells (None Seen) /HPF Urine Bacteria (None Seen) /HPF Urine Culture Reflexed (NO) Ur Random Creatinine 88.9 mg/dl U Random Total Protein 31.0 (<12) mg/dl U [place] Prot/Creat Ratio 0.35 H (0.0-0.15) mg/mg Monoscreen (NEGATIVE) Influenza Type A Ag (NEGATIVE) Influenza Type B Ag (NEGATIVE) RSV (PCR) (NEGATIVE) SARS-CoV-2 (PCR) (NEGATIVE) Group A Strep Antibody (NEGATIVE) Slides for Path Review 01/12/24 01/12/24 01/12/24 Range/Units 21:52 21:52 21:52 WBC (3.98-10.04) x10^3/uL RBC (3.93-5.22) x10^6/uL Hgb (11.2-15.7) g/dL Hct (34.1-44.9) % MCV (79.4-94.8) fL MCH (25.6-32.2) pg MCHC (32.2-35.5) g/dL RDW (11.7-14.4) % Plt Count (182-369) x10^3/uL MPV (9.4-12.3) fL Gran % (34.0-71.1) % Immature Gran % (Auto) (0.001-0.429) % Nucleat RBC Rel Count (0.00-0.2) % Eos # (Auto) (0.04-0.36) x10^3/uL Immature Gran # (Auto) (0.001-0.031) x10^3u/L Absolute Lymphs (auto) (1.18-3.74) x10^3/uL Absolute Monos (auto) (0.24-0.86) x10^3/uL Absolute Nucleated RBC (0.00-0.012) x10^3u/L Lymphocytes % (19.3-51.7) % Monocytes % (4.7-12.5) % Eosinophils % (0.7-5.8) % Basophils % (0.1-1.2) % Absolute Granulocytes (1.56-6.13) x10^3/uL Basophils # (0.01-0.08) x10^3/uL Sodium 136 (135-145) mmol/L Potassium 4.7 (3.5-5.1) mmol/L Chloride 101 (98-107) mmol/L Carbon Dioxide 26 (22-30) mmol/L Anion Gap 13.5 (5-15) MEQ/L BUN 25 H (7-17) mg/dL Creatinine 1.82 H (0.52-1.04) mg/dL Estimated GFR 28.8 ML/MIN Glucose 332 H (74-106) mg/dL Lactic Acid (0.4-2.0) Uric Acid (2.6-6.0) mg/dL Calcium 9.4 (8.4-10.2) mg/dL Magnesium 1.7 (1.6-2.3) mg/dL Total Bilirubin 0.60 (0.2-1.3) mg/dL AST 47 H (14-36) U/L ALT 23 (0-35) U/L Alkaline Phosphatase 109 (38-126) U/L Serum Total Protein 6.4 (6.3-8.2) g/dL Albumin 3.8 (3.5-5.0) g/dL 25-OH Vitamin D Total (30-100) ng/mL Urine Color (Yellow) Urine Appearance (Clear) Urine pH (4.6-8.0) Ur Specific [place] (1.005-1.030) Urine Protein (Negative) Urine Glucose (UA) (Negative) mg/dL Urine Ketones (Negative) Urine Blood (Negative) Urine Nitrite (Negative) Urine Bilirubin (Negative) Urine Urobilinogen (0.2) mg/dL Ur Leukocyte Esterase (Negative) U Hyaline Cast (Auto) (0-2) /LPF Urine Microscopic RBC (0-5) /HPF Urine Microscopic WBC (0-5) /HPF Ur Epithelial Cells (None Seen) /HPF Urine Bacteria (None Seen) /HPF Urine Culture Reflexed (NO) Ur Random Creatinine mg/dl U Random Total Protein (<12) mg/dl U [place] Prot/Creat Ratio (0.0-0.15) mg/mg Monoscreen NEGATIVE (NEGATIVE) Influenza Type A Ag (NEGATIVE) Influenza Type B Ag (NEGATIVE) RSV (PCR) (NEGATIVE) SARS-CoV-2 (PCR) (NEGATIVE) Group A Strep Antibody (NEGATIVE) Slides for Path Review 01/12/24 01/12/24 01/12/24 Range/Units 21:52 21:48 21:34 WBC 12.5 H (3.98-10.04) x10^3/uL RBC 3.68 L (3.93-5.22) x10^6/uL Hgb 11.6 (11.2-15.7) g/dL Hct 35.2 (34.1-44.9) % MCV 95.7 H (79.4-94.8) fL MCH 31.5 (25.6-32.2) pg MCHC 33.0 (32.2-35.5) g/dL RDW 13.6 (11.7-14.4) % Plt Count 124 L (182-369) x10^3/uL MPV 11.1 (9.4-12.3) fL Gran % 93.3 H (34.0-71.1) % Immature Gran % (Auto) 0.6 H (0.001-0.429) % Nucleat RBC Rel Count 0.0 (0.00-0.2) % Eos # (Auto) 0.09 (0.04-0.36) x10^3/uL Immature Gran # (Auto) 0.07 H (0.001-0.031) x10^3u/L Absolute Lymphs (auto) 0.19 L (1.18-3.74) x10^3/uL Absolute Monos (auto) 0.46 (0.24-0.86) x10^3/uL Absolute Nucleated RBC 0.00 (0.00-0.012) x10^3u/L Lymphocytes % 1.5 L (19.3-51.7) % Monocytes % 3.7 L (4.7-12.5) % Eosinophils % 0.7 (0.7-5.8) % Basophils % 0.2 (0.1-1.2) % Absolute Granulocytes 11.71 H (1.56-6.13) x10^3/uL Basophils # 0.02 (0.01-0.08) x10^3/uL Sodium (135-145) mmol/L Potassium (3.5-5.1) mmol/L Chloride (98-107) mmol/L Carbon Dioxide (22-30) mmol/L Anion Gap (5-15) MEQ/L BUN (7-17) mg/dL Creatinine (0.52-1.04) mg/dL Estimated GFR ML/MIN Glucose (74-106) mg/dL Lactic Acid 2.5 H (0.4-2.0) Uric Acid (2.6-6.0) mg/dL Calcium (8.4-10.2) mg/dL Magnesium (1.6-2.3) mg/dL Total Bilirubin (0.2-1.3) mg/dL AST (14-36) U/L ALT (0-35) U/L Alkaline Phosphatase (38-126) U/L Serum Total Protein (6.3-8.2) g/dL Albumin (3.5-5.0) g/dL 25-OH Vitamin D Total (30-100) ng/mL Urine Color (Yellow) Urine Appearance (Clear) Urine pH (4.6-8.0) Ur Specific [place] (1.005-1.030) Urine Protein (Negative) Urine Glucose (UA) (Negative) mg/dL Urine Ketones (Negative) Urine Blood (Negative) Urine Nitrite (Negative) Urine Bilirubin (Negative) Urine Urobilinogen (0.2) mg/dL Ur Leukocyte Esterase (Negative) U Hyaline Cast (Auto) (0-2) /LPF Urine Microscopic RBC (0-5) /HPF Urine Microscopic WBC (0-5) /HPF Ur Epithelial Cells (None Seen) /HPF Urine Bacteria (None Seen) /HPF Urine Culture Reflexed (NO) Ur Random Creatinine mg/dl U Random Total Protein (<12) mg/dl U [place] Prot/Creat Ratio (0.0-0.15) mg/mg Monoscreen (NEGATIVE) Influenza Type A Ag NEGATIVE (NEGATIVE) Influenza Type B Ag NEGATIVE (NEGATIVE) RSV (PCR) NEGATIVE (NEGATIVE) SARS-CoV-2 (PCR) NEGATIVE (NEGATIVE) Group A Strep Antibody (NEGATIVE) Slides for Path Review YES 01/12/24 01/12/24 Range/Units 21:34 20:45 WBC (3.98-10.04) x10^3/uL RBC (3.93-5.22) x10^6/uL Hgb (11.2-15.7) g/dL Hct (34.1-44.9) % MCV (79.4-94.8) fL MCH (25.6-32.2) pg MCHC (32.2-35.5) g/dL RDW (11.7-14.4) % Plt Count (182-369) x10^3/uL MPV (9.4-12.3) fL Gran % (34.0-71.1) % Immature Gran % (Auto) (0.001-0.429) % Nucleat RBC Rel Count (0.00-0.2) % Eos # (Auto) (0.04-0.36) x10^3/uL Immature Gran # (Auto) (0.001-0.031) x10^3u/L Absolute Lymphs (auto) (1.18-3.74) x10^3/uL Absolute Monos (auto) (0.24-0.86) x10^3/uL Absolute Nucleated RBC (0.00-0.012) x10^3u/L Lymphocytes % (19.3-51.7) % Monocytes % (4.7-12.5) % Eosinophils % (0.7-5.8) % Basophils % (0.1-1.2) % Absolute Granulocytes (1.56-6.13) x10^3/uL Basophils # (0.01-0.08) x10^3/uL Sodium (135-145) mmol/L Potassium (3.5-5.1) mmol/L Chloride (98-107) mmol/L Carbon Dioxide (22-30) mmol/L Anion Gap (5-15) MEQ/L BUN (7-17) mg/dL Creatinine (0.52-1.04) mg/dL Estimated GFR ML/MIN Glucose (74-106) mg/dL Lactic Acid (0.4-2.0) Uric Acid (2.6-6.0) mg/dL Calcium (8.4-10.2) mg/dL Magnesium (1.6-2.3) mg/dL Total Bilirubin (0.2-1.3) mg/dL AST (14-36) U/L ALT (0-35) U/L Alkaline Phosphatase (38-126) U/L Serum Total Protein (6.3-8.2) g/dL Albumin (3.5-5.0) g/dL 25-OH Vitamin D Total (30-100) ng/mL Urine Color Yellow (Yellow) Urine Appearance Cloudy A (Clear) Urine pH 5.5 (4.6-8.0) Ur Specific [place] 1.015 (1.005-1.030) Urine Protein 30 (Negative) Urine Glucose (UA) 100 A (Negative) mg/dL Urine Ketones Negative (Negative) Urine Blood Negative (Negative) Urine Nitrite Negative (Negative) Urine Bilirubin Negative (Negative) Urine Urobilinogen 0.2 (0.2) mg/dL Ur Leukocyte Esterase Small A (Negative) U Hyaline Cast (Auto) 3-5 A (0-2) /LPF Urine Microscopic RBC 6-10 A (0-5) /HPF Urine Microscopic WBC 21-50 A (0-5) /HPF Ur Epithelial Cells Few (None Seen) /HPF Urine Bacteria None Seen (None Seen) /HPF Urine Culture Reflexed YES (NO) Ur Random Creatinine mg/dl U Random Total Protein (<12) mg/dl U [place] Prot/Creat Ratio (0.0-0.15) mg/mg Monoscreen (NEGATIVE) Influenza Type A Ag (NEGATIVE) Influenza Type B Ag (NEGATIVE) RSV (PCR) (NEGATIVE) SARS-CoV-2 (PCR) (NEGATIVE) Group A Strep Antibody NOT DETECTED (NEGATIVE) Slides for Path Review - Progress Progress: improved, re-examined Progress Note: 01/12/24 23:04 My medical decision making and the assignment of moderate complexity to this patient's medical issue today is based on review of the patient's past medical history, review of the patient's medication list, review the patient drug allergy list, history present illness and physical findings on examination. The workup in this patient includes placement of intravenous line, infusion of low rate normal saline solution, blood culture, urinalysis, CBC, CMP, lactic acid level, chest x-ray, viral swabs, monotest. Differential diagnosis includes but is not limited to UTI, pneumonia, viral illness 01/12/24 23:18 Interpreted the patient's laboratory data results. The patient does have chronic renal failure and her GFR is within her usual range of approximately 26- 32. It is 28.8 today. She has a mildly elevated white count at 12.5. Her initial lactic acid level was 2.5. She has at least a moderate urinary tract infection based on her urinalysis. I interpreted the patient's preliminary chest x-ray report. There is no evidence of any acute cardiopulmonary process. There is no change when compared to the chest x-ray dated 01/05/2024. I spoke with Dr. Espinoza. He is our telehospitalist on-call at this time. I discussed with him the patient history of present illness and presenting complaint, physical findings on examination and workup results. We will place this patient in observation and also provide the patient with low rate intra venous fluid, repeat labs in the morning, IV antibiotics of Rocephin and obtain a physical therapy consultation. 01/12/24 23:20 Patient was walking earlier in the emergency department with assistance. However, she seemed more weak this evening and therefore we will place her in observation. Counseled pt/family regarding: lab results, diagnosis, rad results Medical Desision Making - Independent Historian Additional History obtained from: Family - Diagnostic Testing Diagnostic test were ordered, analyzed, and reviewed by me: Yes Radiological Interpretation: Interpreted by me - Risk of complications The pt has a high risk of morbidity or mortality based on: Decision regarding hospitilization or escalation of hosp level of care - Departure Departure Disposition: Left without being seen Clinical Impression: UTI (urinary tract infection), Fever, Weakness Condition: Stable Critical Care Time: No Referrals: SONIA MARTIN MD [Primary Care Provider] - Follow up/PCP as directed
[2024-01-12] MEDS ORDERED: Sodium Chloride 0.9% 1000 ML 1,000 ML ONE (21:48)
[2024-01-12] MEDS ORDERED: Zofran 4 MG/2 ML VIAL ONE (21:48)
[2024-01-12] MEDS ORDERED: TYLENOL 325 MG ONE (21:48)
[2024-01-12] MEDS: TYLENOL 325 MG PO STA (21:51)
[2024-01-12] MEDS: Zofran 4 MG/2 ML VIAL IV STA (21:52)
[2024-01-12] MEDS: Sodium Chloride 0.9% 1000 ML 1,000 ML IV SCH (21:52)
[2024-01-12 22:07] LABS: Appearance Cloudy (Clear); Bacteria None Seen /HPF (None Seen); Bilirubin Negative (Negative); Blood Negative (Negative); Epithelial Cells Few /HPF (None Seen); Glucose, Urine 100 mg/dL (Negative); Ketones Negative (Negative); Leukocyte Esterase Small (Negative); Nitrite Negative (Negative); Ph 5.5 (4.6-8.0); Protein,Urine Dip 30 (Negative); Specific Gravity 1.015 (1.005-1.030); Urobilinogen 0.2 mg/dL (0.2); WBC 21-50 /HPF (0-5)
[2024-01-12 22:08] LABS: ADD URINE CULTURE? YES (NO)
[2024-01-12 22:12] LABS: Absolute Neutrophil Ct (ANC) 11.71 x10^3/uL (1.56-6.13); BASOPHIL % 0.2 % (0.1-1.2); Basophil (Absolute #) 0.02 x10^3/uL (0.01-0.08); Eosinophil % 0.7 % (0.7-5.8); Eosinophil (Absolute #) 0.09 x10^3/uL (0.04-0.36); Hematocrit 35.2 % (34.1-44.9); Hemoglobin 11.6 g/dL (11.2-15.7); IMMATURE GRAN # 0.07 x10^3u/L (0.001-0.031); IMMATURE GRAN % 0.6 % (0.001-0.429); Lymphocyte (Absolute #) 0.19 x10^3/uL (1.18-3.74); Lymphocytes % 1.5 % (19.3-51.7); Mean Cell Volume 95.7 fL (79.4-94.8); Mean Corpuscular Hemoglobin 31.5 pg (25.6-32.2); Mean Platelet Volume 11.1 fL (9.4-12.3); Monocyte (Absolute #) 0.46 x10^3/uL (0.24-0.86); Monocytes % 3.7 % (4.7-12.5); Neutrophil % 93.3 % (34.0-71.1); Platelet Count 124 x10^3/uL (182-369); Red Blood Count 3.68 x10^6/uL (3.93-5.22); Red Cell Distribution Width 13.6 % (11.7-14.4); White Blood Count 12.5 x10^3/uL (3.98-10.04)
[2024-01-12 22:26] LABS: ALBUMIN 3.8 g/dL (3.5-5.0); ANION GAP 13.5 MEQ/L (5-15); BILIRUBIN,TOTAL 0.6 mg/dL (0.2-1.3); Calcium 9.4 mg/dL (8.4-10.2); Creatinine 1 1.82 mg/dL (0.52-1.04); EST GLOMERULAR FILTRATION RATE 28.8 ML/MIN; Potassium 4.7 mmol/L (3.5-5.1); Total Protein 6.4 g/dL (6.3-8.2)
[2024-01-12 22:46] LABS: Creatinine, Urine Random 88.9 mg/dl; Protein Creatinine Ratio, Ran. 0.35 mg/mg (0.0-0.15)
[2024-01-12 22:48] LABS: INFLUENZA A NEGATIVE (NEGATIVE); INFLUENZA B NEGATIVE (NEGATIVE); RESPIRATORY SYNCTIAL VIRUS NEGATIVE (NEGATIVE); SARS-CoV-2 Xpert Express NEGATIVE (NEGATIVE)
[2024-01-12] MEDS ORDERED: ROCEPHIN 1 GM / 100 ML NaCl 1 GM/100 ML IVPB IV ONE (22:59)
[2024-01-12] MEDS: ROCEPHIN 1 GM / 100 ML NaCl 1 GM/100 ML IVPB IV ONE (23:00)
[2024-01-12 23:10] LABS: Slide Review 1 YES
--- NOTE | 2024-01-13 01:19 | PCM.HP ---
History of Present Illness - Chief Complaint Chief Complaint: fever, weakness Date: 01/13/24 History of Present Illness: 73-year-old woman with history of diabetes, hypertension, CHF, CAD, CKD 3, AVR, and depression, who presents with fevers and weakness. Most of history is obtained from at bedside, although was able to answer some questions. She notes that 1 month ago, she was admitted to [facility] on 12/08 with UTI, requiring 1 week long hospitalization, medicated by severe diffuse weakness requiring stay at [facility] for postacute rehab. She had improved, was ambulating independently again at home, but today she had fevers and chills, temperature of 102, as well as general malaise. She denies dysuria, similar to her prior hospital stay, but has worsening of some middle low back pain. Denies cough, dyspnea, sore throat, or diarrhea, although had one episode of nausea earlier. Upon arrival to the ED, she again has pyuria, was febrile, and was started on Rocephin for acute cystitis. - Review of Systems Constitutional: Fever, Chills, Malaise, Weakness, No Night Sweats Eyes: No Vision Changes Ears, Nose, & Throat: No Nose Congestion, No Sinus Drainage, No Throat Pain Respiratory: No Cough, No Short Of Breath, No Wheezing Cardiac: Chest Pain, No Edema, No Palpitations Abdominal/Gastrointestinal: Nausea, No Abdominal Pain, No Vomiting, No Diarrhea Genitourinary Symptoms: No Dysuria, No Frequency, No Hesitancy Musculoskeletal: Back Pain Skin: No Rash, No Skin Lesions Neurological: No Dizziness, No Focal Weakness, No Headache, No Sensory Changes Medications & Allergies Home Medications: Home Medication List Bumetanide [Bumex] 2 mg PO DAILY 08/20/17 [History Confirmed 01/12/24] Duloxetine HCl [Cymbalta] 60 mg PO DAILY 08/20/17 [History Confirmed 01/12/24] Gabapentin [Neurontin] 600 mg PO QID 08/20/17 [History Confirmed 01/12/24] Isosorbide Mononitrate 30 mg [Imdur 30 MG] 30 mg PO DAILY 08/20/17 [History Confirmed 01/12/24] Multivitamin [Multi-Vitamin Daily] 1 tab PO DAILY 08/20/17 [History Confirmed 01/13/24] Nitroglycerin 0.4 mg Tablet [Nitrostat 0.4 MG Tablet] 0.4 mg SL Q5MIN PRN MR X 3 PRN 08/20/17 [History Confirmed 01/12/24] Potassium Chloride Tab* [Klor Con] 20 meq PO BREAKFAST 08/20/17 [History Confirmed 01/13/24] Trazodone HCl 50 mg [Desyrel 50 mg] 100 mg PO HS 08/20/17 [History Confirmed 01/12/24] Metoprolol Succinate 50 mg [Toprol Xl 50 MG] 25 mg PO DAILY 12/16/17 [History Confirmed 01/12/24] Clopidogrel Bisulfate [PLAVIX Tablet] 75 mg PO DAILY 03/17/19 [History Confirmed 01/12/24] Insulin Lispro [Humalog] 0 unit SQ UD 03/17/19 [History Confirmed 01/12/24] allopurinoL [Zyloprim] 300 mg PO DAILY 03/17/19 [History Confirmed 01/13/24] Glimepiride 4 mg [Amaryl 4 mg] 4 mg PO DAILY 06/12/19 [History Confirmed 01/12/24] Amlodipine Besylate 5 mg PO DAILY 10/20/19 [History Confirmed 01/12/24] Cholecalciferol (Vitamin D3) [Vitamin D3] 2,000 unit PO UD 10/20/19 [History Confirmed 01/12/24] Losartan Potassium 25 mg PO DAILY 10/20/19 [History Confirmed 01/12/24] OLANZapine [Olanzapine] 5 mg PO BID 10/20/19 [History Confirmed 01/12/24] Evolocumab [Repatha Sureclick] 140 mg SQ UD 03/04/20 [History Confirmed 01/13/24] Insulin Glargine,Hum.rec.anlog [Basaglar Kwikpen U-100] 4 unit SQ DAILY 03/04/20 [History Confirmed 01/13/24] Cyanocobalamin (Vitamin B-12) [B-12] 1,000 mcg PO DAILY 03/05/20 [History Confirmed 01/12/24] Acetaminophen [Tylenol Arthritis] 1,300 mg PO BID PRN PRN 11/26/22 [History Confirmed 01/13/24] Montelukast Sodium 10 mg [Singulair 10 MG] 10 mg PO DAILY 11/26/22 [History Confirmed 01/13/24] Tamsulosin HCl 0.4 mg [Flomax 0.4 MG] 0.4 mg PO BID 11/26/22 [History Confirmed 01/13/24] Vibegron [Gemtesa] 75 mg PO DAILY 11/26/22 [History Confirmed 01/13/24] Bumetanide 2 mg PO DAILY PRN PRN 01/13/24 [History Confirmed 01/13/24] Potassium Chloride Tab* [Klor Con] 10 meq PO LUNCH 01/13/24 [History Confirmed 01/13/24] Potassium Chloride Tab* [Klor Con] 20 meq PO DINNER 01/13/24 [History Confirmed 01/13/24] Allergies/Adverse Reactions: Allergies Allergy/AdvReac Type Severity Reaction Status Date / Time hydromorphone [From Dilaudid] Allergy Severe Difficulty Verified 01/13/24 00:20 Breathing meclofenamic acid Allergy Severe Skin Verified 01/13/24 00:20 [From Meclomen] Irritation morphine Allergy Severe Difficulty Verified 01/13/24 00:20 Breathing Sulfa (Sulfonamide Allergy Severe Verified 01/13/24 00:20 Antibiotics) ciprofloxacin [From Cipro] Allergy Intermediate Itching Verified 01/13/24 00:20 diphenhydramine Allergy Intermediate Swelling Verified 01/13/24 00:20 [From Benadryl] of Tongue and Lips - Past Medical History Past Medical History: Yes Neurological History: No Pertinent History ENT History: Cataracts Cardiac History: Hypertension Respiratory History: No Pertinent History, CHF Endocrine Medical History: Diabetes Type II Musculoskelatal History: Arthritis, Fibromyalgia GI Medical History: Irritable Bowel History: Renal Disease, Other Pyscho-Social History: Anxiety, Depression Reproductive Disorders: Breast Cancer Comment: ADMITTED FOR 11/26 FOR PNA,01/04 FOR BLOOD CLOTS AND ANTIBIOTICS FOR RESIDUAL PNA. LUMBAR SX TLIF MAR 2020, CKD STAGE 4, CONGESTIVE HEART FAILURE, TAVR 2015, DM, LUPUS, IBS, GERD, ANXIETY, DEPRESSION, BIPOLAR. BROKEN RLE. SX: INSTESTINAL BYPASS AND REVERSAL, LEFT MASTECTOMY, TAVER, LUMBAR LAMINECTOMY 2016, STEROID INJECTIONS. - Past Surgical History Past Surgical History: Yes Neuro Surgical History: No Pertinent History Cardiac History: Other Respiratory Surgery: No Pertinent History GI Surgical History: Appendectomy, Cholecystectomy Genitourinary Surgical Hx: No Pertinent History Musculskeletal Surgical Hx: No Pertinent History Female Surgical History: Hysterectomy, Section, Tubal Ligation, Lumpectomy Other Surgical History: intestinal bypass and then reverse,sinus surgery times 2 roof/mouth then sinus surgery nose,left foot planters wart,right breast tumor,rt ankle/right leg sx after fx,left breast mastectomy with sentinel removed,6 marek steroid inj,t.a.v.r.-transcatheter aortic value replacement,lumbar laminectomy, steroid injections in back multiple times a year Significant Family History: no pertinent family hx - Social History Smoking Status: Never smoker Exposure to second hand smoke: No Alcohol: None Drug Use: none - Social Determinants of Health Will the patient participate in the screening: Yes Do you worry about a steady place to live?: No Do you have any problems with any of the following?: No known problems In the past 12 months,have you had to go without utilities?: No Have you or anyone in your house had to go without enough: No Transportation Issues: No Has anyone in your support network made you feel unsafe?: No Does the patient want assistance with any of the above?: No - Physical Exam Vital Signs: Vital Signs - 24 hr Temp Pulse Resp BP BP Pulse Ox 01/13/24 00:15 99 F 92 H 18 131/58 99 01/12/24 23:55 94 H 18 142/54 95 01/12/24 23:29 133/55 97 01/12/24 23:27 97 01/12/24 23:12 101 H 20 78/57 95 01/12/24 23:10 89 L 01/12/24 23:06 94 L 01/12/24 22:50 97 01/12/24 22:40 96 01/12/24 22:30 96 01/12/24 22:20 91 L 01/12/24 22:10 93 L 01/12/24 22:04 50 L 18 139/69 93 L 01/12/24 21:30 74 16 155/103 97 01/12/24 21:21 96 01/12/24 21:09 139/69 93 L 01/12/24 20:55 101.1 F 56 L 20 114/89 93 L GEN: Lying in bed in no acute distress, but quiet NEURO: No focal deficits CV: Regular rate & rhythm, no murmurs, no edema PULM: Clear to auscultation bilaterally, no work of breathing, on room air ABD: Soft, non-distended, normoactive bowel sounds PSYCH: Alert, oriented x3 Wound Assessment: Skin/Wound Assessment Wound/Incision Assessment Start: 01/13/24 00:50 Text: Status: Active Freq: Q6H Protocol: Document 01/13/24 00:50 MM (Rec: 01/13/24 01:00 MM [id number]) Wound/Incision Assessment Medial Sacrum Wound Assessment Admission Wound Type Pressure Ulcer Wound Stage Stage I Drainage Amount None Drainage Odor None/Absent General Appearance Open to air,Reddened Comment barrier and zinc ointments applied Wound Photo Photo Taken Yes Date: 01/13/24 Time: 00:57 Results - Labs Lab/Micro Results: Lab Results-Last 24 Hours 01/12/24 01/12/24 01/12/24 Range/Units 20:45 21:34 21:34 WBC (3.98-10.04) x10^3/uL RBC (3.93-5.22) x10^6/uL Hgb (11.2-15.7) g/dL Hct (34.1-44.9) % MCV (79.4-94.8) fL MCH (25.6-32.2) pg MCHC (32.2-35.5) g/dL RDW (11.7-14.4) % Plt Count (182-369) x10^3/uL MPV (9.4-12.3) fL Gran % (34.0-71.1) % Immature Gran % (Auto) (0.001-0.429) % Nucleat RBC Rel Count (0.00-0.2) % Eos # (Auto) (0.04-0.36) x10^3/uL Immature Gran # (Auto) (0.001-0.031) x10^3u/L Absolute Lymphs (auto) (1.18-3.74) x10^3/uL Absolute Monos (auto) (0.24-0.86) x10^3/uL Absolute Nucleated RBC (0.00-0.012) x10^3u/L Lymphocytes % (19.3-51.7) % Monocytes % (4.7-12.5) % Eosinophils % (0.7-5.8) % Basophils % (0.1-1.2) % Absolute Granulocytes (1.56-6.13) x10^3/uL Basophils # (0.01-0.08) x10^3/uL Sodium (135-145) mmol/L Potassium (3.5-5.1) mmol/L Chloride (98-107) mmol/L Carbon Dioxide (22-30) mmol/L Anion Gap (5-15) MEQ/L BUN (7-17) mg/dL Creatinine (0.52-1.04) mg/dL Estimated GFR ML/MIN Glucose (74-106) mg/dL Lactic Acid (0.4-2.0) Uric Acid (2.6-6.0) mg/dL Calcium (8.4-10.2) mg/dL Magnesium (1.6-2.3) mg/dL Total Bilirubin (0.2-1.3) mg/dL AST (14-36) U/L ALT (0-35) U/L Alkaline Phosphatase (38-126) U/L Serum Total Protein (6.3-8.2) g/dL Albumin (3.5-5.0) g/dL 25-OH Vitamin D Total (30-100) ng/mL Urine Color Yellow (Yellow) Urine Appearance Cloudy A (Clear) Urine pH 5.5 (4.6-8.0) Ur Specific [place] 1.015 (1.005-1.030) Urine Protein 30 (Negative) Urine Glucose (UA) 100 A (Negative) mg/dL Urine Ketones Negative (Negative) Urine Blood Negative (Negative) Urine Nitrite Negative (Negative) Urine Bilirubin Negative (Negative) Urine Urobilinogen 0.2 (0.2) mg/dL Ur Leukocyte Esterase Small A (Negative) U Hyaline Cast (Auto) 3-5 A (0-2) /LPF Urine Microscopic RBC 6-10 A (0-5) /HPF Urine Microscopic WBC 21-50 A (0-5) /HPF Ur Epithelial Cells Few (None Seen) /HPF Urine Bacteria None Seen (None Seen) /HPF Urine Culture Reflexed YES (NO) Ur Random Creatinine mg/dl U Random Total Protein (<12) mg/dl U [place] Prot/Creat Ratio (0.0-0.15) mg/mg Monoscreen (NEGATIVE) Influenza Type A Ag NEGATIVE (NEGATIVE) Influenza Type B Ag NEGATIVE (NEGATIVE) RSV (PCR) NEGATIVE (NEGATIVE) SARS-CoV-2 (PCR) NEGATIVE (NEGATIVE) Group A Strep Antibody NOT DETECTED (NEGATIVE) Slides for Path Review 01/12/24 01/12/24 01/12/24 Range/Units 21:48 21:52 21:52 WBC 12.5 H (3.98-10.04) x10^3/uL RBC 3.68 L (3.93-5.22) x10^6/uL Hgb 11.6 (11.2-15.7) g/dL Hct 35.2 (34.1-44.9) % MCV 95.7 H (79.4-94.8) fL MCH 31.5 (25.6-32.2) pg MCHC 33.0 (32.2-35.5) g/dL RDW 13.6 (11.7-14.4) % Plt Count 124 L (182-369) x10^3/uL MPV 11.1 (9.4-12.3) fL Gran % 93.3 H (34.0-71.1) % Immature Gran % (Auto) 0.6 H (0.001-0.429) % Nucleat RBC Rel Count 0.0 (0.00-0.2) % Eos # (Auto) 0.09 (0.04-0.36) x10^3/uL Immature Gran # (Auto) 0.07 H (0.001-0.031) x10^3u/L Absolute Lymphs (auto) 0.19 L (1.18-3.74) x10^3/uL Absolute Monos (auto) 0.46 (0.24-0.86) x10^3/uL Absolute Nucleated RBC 0.00 (0.00-0.012) x10^3u/L Lymphocytes % 1.5 L (19.3-51.7) % Monocytes % 3.7 L (4.7-12.5) % Eosinophils % 0.7 (0.7-5.8) % Basophils % 0.2 (0.1-1.2) % Absolute Granulocytes 11.71 H (1.56-6.13) x10^3/uL Basophils # 0.02 (0.01-0.08) x10^3/uL Sodium 136 (135-145) mmol/L Potassium 4.7 (3.5-5.1) mmol/L Chloride 101 (98-107) mmol/L Carbon Dioxide 26 (22-30) mmol/L Anion Gap 13.5 (5-15) MEQ/L BUN 25 H (7-17) mg/dL Creatinine 1.82 H (0.52-1.04) mg/dL Estimated GFR 28.8 ML/MIN Glucose 332 H (74-106) mg/dL Lactic Acid 2.5 H (0.4-2.0) Uric Acid (2.6-6.0) mg/dL Calcium 9.4 (8.4-10.2) mg/dL Magnesium (1.6-2.3) mg/dL Total Bilirubin 0.60 (0.2-1.3) mg/dL AST 47 H (14-36) U/L ALT 23 (0-35) U/L Alkaline Phosphatase 109 (38-126) U/L Serum Total Protein 6.4 (6.3-8.2) g/dL Albumin 3.8 (3.5-5.0) g/dL 25-OH Vitamin D Total (30-100) ng/mL Urine Color (Yellow) Urine Appearance (Clear) Urine pH (4.6-8.0) Ur Specific [place] (1.005-1.030) Urine Protein (Negative) Urine Glucose (UA) (Negative) mg/dL Urine Ketones (Negative) Urine Blood (Negative) Urine Nitrite (Negative) Urine Bilirubin (Negative) Urine Urobilinogen (0.2) mg/dL Ur Leukocyte Esterase (Negative) U Hyaline Cast (Auto) (0-2) /LPF Urine Microscopic RBC (0-5) /HPF Urine Microscopic WBC (0-5) /HPF Ur Epithelial Cells (None Seen) /HPF Urine Bacteria (None Seen) /HPF Urine Culture Reflexed (NO) Ur Random Creatinine mg/dl U Random Total Protein (<12) mg/dl U [place] Prot/Creat Ratio (0.0-0.15) mg/mg Monoscreen (NEGATIVE) Influenza Type A Ag (NEGATIVE) Influenza Type B Ag (NEGATIVE) RSV (PCR) (NEGATIVE) SARS-CoV-2 (PCR) (NEGATIVE) Group A Strep Antibody (NEGATIVE) Slides for Path Review YES 01/12/24 01/12/24 01/12/24 Range/Units 21:52 21:52 21:52 WBC (3.98-10.04) x10^3/uL RBC (3.93-5.22) x10^6/uL Hgb (11.2-15.7) g/dL Hct (34.1-44.9) % MCV (79.4-94.8) fL MCH (25.6-32.2) pg MCHC (32.2-35.5) g/dL RDW (11.7-14.4) % Plt Count (182-369) x10^3/uL MPV (9.4-12.3) fL Gran % (34.0-71.1) % Immature Gran % (Auto) (0.001-0.429) % Nucleat RBC Rel Count (0.00-0.2) % Eos # (Auto) (0.04-0.36) x10^3/uL Immature Gran # (Auto) (0.001-0.031) x10^3u/L Absolute Lymphs (auto) (1.18-3.74) x10^3/uL Absolute Monos (auto) (0.24-0.86) x10^3/uL Absolute Nucleated RBC (0.00-0.012) x10^3u/L Lymphocytes % (19.3-51.7) % Monocytes % (4.7-12.5) % Eosinophils % (0.7-5.8) % Basophils % (0.1-1.2) % Absolute Granulocytes (1.56-6.13) x10^3/uL Basophils # (0.01-0.08) x10^3/uL Sodium (135-145) mmol/L Potassium (3.5-5.1) mmol/L Chloride (98-107) mmol/L Carbon Dioxide (22-30) mmol/L Anion Gap (5-15) MEQ/L BUN (7-17) mg/dL Creatinine (0.52-1.04) mg/dL Estimated GFR ML/MIN Glucose (74-106) mg/dL Lactic Acid (0.4-2.0) Uric Acid 3.9 (2.6-6.0) mg/dL Calcium (8.4-10.2) mg/dL Magnesium 1.7 (1.6-2.3) mg/dL Total Bilirubin (0.2-1.3) mg/dL AST (14-36) U/L ALT (0-35) U/L Alkaline Phosphatase (38-126) U/L Serum Total Protein (6.3-8.2) g/dL Albumin (3.5-5.0) g/dL 25-OH Vitamin D Total (30-100) ng/mL Urine Color (Yellow) Urine Appearance (Clear) Urine pH (4.6-8.0) Ur Specific [place] (1.005-1.030) Urine Protein (Negative) Urine Glucose (UA) (Negative) mg/dL Urine Ketones (Negative) Urine Blood (Negative) Urine Nitrite (Negative) Urine Bilirubin (Negative) Urine Urobilinogen (0.2) mg/dL Ur Leukocyte Esterase (Negative) U Hyaline Cast (Auto) (0-2) /LPF Urine Microscopic RBC (0-5) /HPF Urine Microscopic WBC (0-5) /HPF Ur Epithelial Cells (None Seen) /HPF Urine Bacteria (None Seen) /HPF Urine Culture Reflexed (NO) Ur Random Creatinine mg/dl U Random Total Protein (<12) mg/dl U [place] Prot/Creat Ratio (0.0-0.15) mg/mg Monoscreen NEGATIVE (NEGATIVE) Influenza Type A Ag (NEGATIVE) Influenza Type B Ag (NEGATIVE) RSV (PCR) (NEGATIVE) SARS-CoV-2 (PCR) (NEGATIVE) Group A Strep Antibody (NEGATIVE) Slides for Path Review 01/12/24 01/12/24 01/12/24 Range/Units 21:52 22:30 23:49 WBC (3.98-10.04) x10^3/uL RBC (3.93-5.22) x10^6/uL Hgb (11.2-15.7) g/dL Hct (34.1-44.9) % MCV (79.4-94.8) fL MCH (25.6-32.2) pg MCHC (32.2-35.5) g/dL RDW (11.7-14.4) % Plt Count (182-369) x10^3/uL MPV (9.4-12.3) fL Gran % (34.0-71.1) % Immature Gran % (Auto) (0.001-0.429) % Nucleat RBC Rel Count (0.00-0.2) % Eos # (Auto) (0.04-0.36) x10^3/uL Immature Gran # (Auto) (0.001-0.031) x10^3u/L Absolute Lymphs (auto) (1.18-3.74) x10^3/uL Absolute Monos (auto) (0.24-0.86) x10^3/uL Absolute Nucleated RBC (0.00-0.012) x10^3u/L Lymphocytes % (19.3-51.7) % Monocytes % (4.7-12.5) % Eosinophils % (0.7-5.8) % Basophils % (0.1-1.2) % Absolute Granulocytes (1.56-6.13) x10^3/uL Basophils # (0.01-0.08) x10^3/uL Sodium (135-145) mmol/L Potassium (3.5-5.1) mmol/L Chloride (98-107) mmol/L Carbon Dioxide (22-30) mmol/L Anion Gap (5-15) MEQ/L BUN (7-17) mg/dL Creatinine (0.52-1.04) mg/dL Estimated GFR ML/MIN Glucose (74-106) mg/dL Lactic Acid 2.3 H (0.4-2.0) Uric Acid (2.6-6.0) mg/dL Calcium (8.4-10.2) mg/dL Magnesium (1.6-2.3) mg/dL Total Bilirubin (0.2-1.3) mg/dL AST (14-36) U/L ALT (0-35) U/L Alkaline Phosphatase (38-126) U/L Serum Total Protein (6.3-8.2) g/dL Albumin (3.5-5.0) g/dL 25-OH Vitamin D Total 78.4 (30-100) ng/mL Urine Color (Yellow) Urine Appearance (Clear) Urine pH (4.6-8.0) Ur Specific [place] (1.005-1.030) Urine Protein (Negative) Urine Glucose (UA) (Negative) mg/dL Urine Ketones (Negative) Urine Blood (Negative) Urine Nitrite (Negative) Urine Bilirubin (Negative) Urine Urobilinogen (0.2) mg/dL Ur Leukocyte Esterase (Negative) U Hyaline Cast (Auto) (0-2) /LPF Urine Microscopic RBC (0-5) /HPF Urine Microscopic WBC (0-5) /HPF Ur Epithelial Cells (None Seen) /HPF Urine Bacteria (None Seen) /HPF Urine Culture Reflexed (NO) Ur Random Creatinine 88.9 mg/dl U Random Total Protein 31.0 (<12) mg/dl U [place] Prot/Creat Ratio 0.35 H (0.0-0.15) mg/mg Monoscreen (NEGATIVE) Influenza Type A Ag (NEGATIVE) Influenza Type B Ag (NEGATIVE) RSV (PCR) (NEGATIVE) SARS-CoV-2 (PCR) (NEGATIVE) Group A Strep Antibody (NEGATIVE) Slides for Path Review - Radiology Impressions Radiology Exams & Impressions: Radiology Procedures Category Date Time Status CHEST 1 VIEW (PORTABLE) Stat Exams 01/12/24 21:22 Taken Chest x-ray no infiltrate, effusion, or edema. Somewhat small lung volumes. (Images reviewed.) Assessment/Plan (1) Acute cystitis Current Visit: Yes Status: Acute Assessment & Plan: 73-year-old woman with a history of CKD stage III, DM2, HTN, CHF, CAD, here with acute cystitis and generalized weakness. ## Acute cystitis reviewed discharge records from [facility], and patient was treated for an Enterococcus and Streptococcus UTI. Again she is having overall malaise and weakness secondary to her infection. Although she has some low back pain, does not appear to have costovertebral angle tenderness or systemic signs to suggest pyelonephritis. Started on Rocephin Follow-up blood and urine cultures Consult PT for mobility in the morning ## Type 2 diabetes on insulin at home Continue Lantus 4 units daily Placed on moderate dose sliding scale insulin AC/HS ## Hypertension was elevated during her initial stay at [facility], but well-controlled today. She is back on the same medications she was on prior to her initial hospitalization a month ago. Continue losartan 25, Norvasc 5, Toprol-XL 25 ## CHF unknown if diastolic or systolic. On Bumex at home. Discontinue continuous normal saline Resume Bumex 2 mg daily ## CAD, status post AVR Continue Plavix 75, Toprol-XL CODE STATUS: Full code Prophylaxis: Heparin subcutaneous Diet: Diabetic Code(s): N30.00 - ACUTE CYSTITIS WITHOUT HEMATURIA Telemedicine Encounter - Telemedicine Encounter Telemedicine Encounter: "The entirety of this encounter was performed via Telemedicine" This visit was performed using real-time audio and video connection between my location and thepatients locationwith the assistance of a surrogateat the patients location. Written or verbal consent was obtained from the patient/guardian to perform this visit [facility] technology. Any patient questions regarding the telemedicine interaction were answered.
[2024-01-13 04:50] LABS: Absolute Neutrophil Ct (ANC) 11.91 x10^3/uL (1.56-6.13); BASOPHIL % 0.2 % (0.1-1.2); Basophil (Absolute #) 0.02 x10^3/uL (0.01-0.08); Eosinophil (Absolute #) 0 x10^3/uL (0.04-0.36); Hematocrit 28.5 % (34.1-44.9); Hemoglobin 9.3 g/dL (11.2-15.7); IMMATURE GRAN # 0.07 x10^3u/L (0.001-0.031); IMMATURE GRAN % 0.6 % (0.001-0.429); Lymphocyte (Absolute #) 0.18 x10^3/uL (1.18-3.74); Lymphocytes % 1.4 % (19.3-51.7); Mean Cell Volume 95.6 fL (79.4-94.8); Mean Corpuscular Hemoglobin 31.2 pg (25.6-32.2); Mean Corpuscular Hgb Concent. 32.6 g/dL (32.2-35.5); Mean Platelet Volume 11.2 fL (9.4-12.3); Monocyte (Absolute #) 0.53 x10^3/uL (0.24-0.86); Monocytes % 4.2 % (4.7-12.5); Neutrophil % 93.6 % (34.0-71.1); Platelet Count 140 x10^3/uL (182-369); Red Blood Count 2.98 x10^6/uL (3.93-5.22); Red Cell Distribution Width 13.7 % (11.7-14.4); White Blood Count 12.7 x10^3/uL (3.98-10.04)
[2024-01-13 05:26] LABS: ALBUMIN 2.9 g/dL (3.5-5.0); ANION GAP 10.9 MEQ/L (5-15); BILIRUBIN,TOTAL 0.4 mg/dL (0.2-1.3); Calcium 8.4 mg/dL (8.4-10.2); Creatinine 1 2.16 mg/dL (0.52-1.04); EST GLOMERULAR FILTRATION RATE 23.5 ML/MIN; Potassium 4.9 mmol/L (3.5-5.1); Total Protein 5.3 g/dL (6.3-8.2)
[2024-01-13 07:06] LABS: Slide Review 1 YES
[2024-01-13] MEDS ORDERED: MEDICATION INTERVENTION MC SCH (08:00)
--- NOTE | 2024-01-13 08:46 | XRAY ---
Indication: Fever. Comparison: January 04, 2023 Portable chest remains underinflated and clear with chronic right hemidiaphragm elevation. Heart not enlarged again with aortic valve replacement. Bony thorax intact again with osteopenia and degenerative changes. Impression: Continued nonacute underinflated chest with chronic features.
[2024-01-13] MEDS: HUMULIN R SQ PRN (08:59)
[2024-01-13] MEDS: Klor Con PO SCH ×3 (09:00→17:38)
[2024-01-13] MEDS ORDERED: NON-FORMULARY ITEM (Amlodipine Besylate [Amlodipine Besylate] 10 MG Tablet) PO SCH (10:00)
[2024-01-13] MEDS ORDERED: Cozaar 50 MG PO SCH (10:00)
[2024-01-13] MEDS ORDERED: NON-FORMULARY ITEM (Insulin Glargine,Hum.Rec.Anlog [Basaglar Kwikpen U-100] 100 UNIT/ML In SQ SCH (10:00)
[2024-01-13] MEDS ORDERED: ZYLOPRIM 100 MG PO SCH (10:00)
[2024-01-13] MEDS ORDERED: Cymbalta 30 MG Capsule PO SCH (10:00)
[2024-01-13] MEDS ORDERED: NON-FORMULARY ITEM (Bumetanide [Bumex] 2 MG Tablet) PO SCH (10:00)
[2024-01-13] MEDS ORDERED: NON-FORMULARY ITEM (Duloxetine Hcl [Cymbalta] 60 MG Capsule.Dr) PO SCH (10:00)
[2024-01-13] MEDS ORDERED: Toprol Xl 50 MG PO SCH (10:00)
[2024-01-13] MEDS ORDERED: NON-FORMULARY ITEM (Vibegron [Gemtesa] 75 MG Tablet) PO SCH (10:00)
[2024-01-13] MEDS ORDERED: NON-FORMULARY ITEM (Losartan Potassium [Losartan Potassium] 25 MG Tablet) PO SCH (10:00)
[2024-01-13] MEDS ORDERED: BUMEX 1 MG PO SCH (10:00)
[2024-01-13] MEDS: Sodium Chloride 0.9% 1000 ML 1,000 ML IV SCH (10:44)
[2024-01-13] MEDS: PATIENT OWN MEDICATION PO SCH ×2 (10:45)
[2024-01-13] MEDS: Lantus Insulin SQ SCH (10:46)
[2024-01-13] MEDS: HEPARIN 5000 UNITS/0.5 ML (HIGH RISK MED) SQ SCH (10:46)
[2024-01-13] MEDS: Imdur 30 MG PO SCH (10:46)
[2024-01-13] MEDS: Flomax 0.4 MG PO SCH (10:47)
[2024-01-13] MEDS: zyPREXA 5MG TABLET PO SCH (10:47)
[2024-01-13] MEDS: PLAVIX Tablet PO SCH (10:47)
[2024-01-13] MEDS: ZYLOPRIM 300 MG PO SCH (10:47)
[2024-01-13] MEDS: Toprol-Xl 25MG Tablets PO SCH (10:47)
[2024-01-13] MEDS: Singulair 10 MG PO SCH (10:47)
[2024-01-13] MEDS: NORVASC 5 MG PO SCH (10:47)
[2024-01-13] MEDS: TYLENOL 325 MG PO PRN (11:29)
[2024-01-13] MEDS: DESYREL 50 MG PO SCH (21:36)
[2024-01-13] MEDS: ROCEPHIN 1 GM / 100 ML NaCl 1 GM/100 ML IVPB IV SCH (21:37)
--- NOTE | 2024-01-14 05:35 | PCM.NOTE ---
Date and Time: 01/14/2430 Subjective Assessment: Ms. Estrada is 73-year-old woman with a history of CKD stage III, DM2, HTN, CHF, CAD,admitted 01/13/24 acute cystitis and generalized weakness. Recent admission at [facility] 12/08 with UTI with enterococcus and streptococcus, requiring 1 week long hospitalization, medicated by severe diffuse weakness requiring stay at [facility] for postacute rehab. She had improved, was ambulating independently again at home, but today she had fevers and chills, temperature of 102, as well as general malaise. Current treatment with Rocephin. Blood and urine cultures pending. PT/OT consulted. 01/14/24: Met with patient bedside. Endorses much improvement of symptoms. Feeling stronger today. Denies urinary symptoms. Ucult with gram neg ID, sensitivity pending. Patient is under the care of Krista Nevarez (urology) for recurrent UTIs. Advised follow up once discharged. Denies fever,cough, sob, cp, abdominal pain, RAMOS, dizziness, N/V/D. - Review of Systems Constitutional: Weakness Eyes: No Symptoms Ears, Nose, & Throat: No Symptoms Respiratory: No Symptoms Cardiac: No Symptoms Abdominal/Gastrointestinal: No Symptoms Genitourinary Symptoms: No Symptoms Musculoskeletal: No Symptoms Skin: No Symptoms Neurological: No Symptoms Psychological: No Symptoms Endocrine: No Symptoms Hematologic/Lymphatic: No Symptoms Immunological/Allergic: No Symptoms Objective Exam General Appearance: no apparent distress Neurologic Exam: alert, oriented x 3, cooperative Skin Exam: normal color Wound Assessment: Skin/Wound Assessment Wound/Incision Assessment Start: 01/13/24 00:50 Text: Status: Active Freq: Q6H Protocol: Document 01/14/24 02:00 LB (Rec: 01/14/24 03:18 LB [id number]) Wound/Incision Assessment Medial Sacrum Wound Assessment Shift Assessment Wound Type Pressure Ulcer Wound Stage Stage II Drainage Amount None Drainage Odor None/Absent General Appearance Open to air,Clean/Dry,Reddened Comment Healing stage 2. Barrier cream applied Wound Photo Photo Taken Yes Comment: in chart Eye Exam: PERRL Ears, Nose, Throat Exam: normal ENT inspection Neck Exam: normal inspection Respiratory Exam: normal breath sounds, lungs clear Cardiovascular Exam: regular rate/rhythm, normal heart sounds Gastrointestinal/Abdomen Exam: soft, normal bowel sounds Extremity Exam: normal inspection Back Exam: normal inspection Pelvic Exam: deferred Rectal Exam: deferred Objective Data Vital Signs: Vital Signs - 24 hr Temp Pulse Resp BP Pulse Ox 01/14/24 04:00 97.3 F 82 15 167/89 92 L 01/14/24 00:00 97.5 F 73 16 140/63 93 L 01/13/24 19:48 98.6 F 73 18 120/56 92 L 01/13/24 16:00 97.6 F 78 16 133/61 94 L 01/13/24 11:31 98.0 F 78 16 140/62 94 L 01/13/24 07:59 98.4 F 86 16 152/65 94 L Pain Assessment - Last Documented Pain Intensity 0 Pain Scale Used 0-10 Pain Scale Intake and Output: Intake & Output 01/11/24 01/12/24 01/13/24 01/14/24 11:59 11:59 11:59 11:59 Intake Total 220 860 Balance 220 860 Weight 97.9 kg Lab Results: Lab Results-Last 24 Hours 01/13/24 01/13/24 01/13/24 Range/Units 04:22 04:22 04:22 WBC 12.7 H (3.98-10.04) x10^3/uL RBC 2.98 L (3.93-5.22) x10^6/uL Hgb 9.3 L (11.2-15.7) g/dL Hct 28.5 L (34.1-44.9) % MCV 95.6 H (79.4-94.8) fL MCH 31.2 (25.6-32.2) pg MCHC 32.6 (32.2-35.5) g/dL RDW 13.7 (11.7-14.4) % Plt Count 140 L (182-369) x10^3/uL MPV 11.2 (9.4-12.3) fL Gran % 93.6 H (34.0-71.1) % Immature Gran % (Auto) 0.6 H (0.001-0.429) % Nucleat RBC Rel Count 0.0 (0.00-0.2) % Eos # (Auto) 0 L (0.04-0.36) x10^3/uL Immature Gran # (Auto) 0.07 H (0.001-0.031) x10^3u/L Absolute Lymphs (auto) 0.18 L (1.18-3.74) x10^3/uL Absolute Monos (auto) 0.53 (0.24-0.86) x10^3/uL Absolute Nucleated RBC 0.00 (0.00-0.012) x10^3u/L Lymphocytes % 1.4 L (19.3-51.7) % Monocytes % 4.2 L (4.7-12.5) % Eosinophils % 0.0 L (0.7-5.8) % Basophils % 0.2 (0.1-1.2) % Absolute Granulocytes 11.91 H (1.56-6.13) x10^3/uL Basophils # 0.02 (0.01-0.08) x10^3/uL Sodium 134 L (135-145) mmol/L Potassium 4.9 (3.5-5.1) mmol/L Chloride 103 (98-107) mmol/L Carbon Dioxide 26 (22-30) mmol/L Anion Gap 10.9 (5-15) MEQ/L BUN 27 H (7-17) mg/dL Creatinine 2.16 H (0.52-1.04) mg/dL Estimated GFR 23.5 ML/MIN Glucose 315 H (74-106) mg/dL POC Glucometer (74 to 106) mg/dL Hemoglobin A1c 7.18 H (4.5-6.0) % Calcium 8.4 (8.4-10.2) mg/dL Total Bilirubin 0.40 (0.2-1.3) mg/dL AST 34 (14-36) U/L ALT 21 (0-35) U/L Alkaline Phosphatase 74 (38-126) U/L Serum Total Protein 5.3 L (6.3-8.2) g/dL Albumin 2.9 L (3.5-5.0) g/dL Slides for Path Review YES 01/13/24 Range/Units 07:38 WBC (3.98-10.04) x10^3/uL RBC (3.93-5.22) x10^6/uL Hgb (11.2-15.7) g/dL Hct (34.1-44.9) % MCV (79.4-94.8) fL MCH (25.6-32.2) pg MCHC (32.2-35.5) g/dL RDW (11.7-14.4) % Plt Count (182-369) x10^3/uL MPV (9.4-12.3) fL Gran % (34.0-71.1) % Immature Gran % (Auto) (0.001-0.429) % Nucleat RBC Rel Count (0.00-0.2) % Eos # (Auto) (0.04-0.36) x10^3/uL Immature Gran # (Auto) (0.001-0.031) x10^3u/L Absolute Lymphs (auto) (1.18-3.74) x10^3/uL Absolute Monos (auto) (0.24-0.86) x10^3/uL Absolute Nucleated RBC (0.00-0.012) x10^3u/L Lymphocytes % (19.3-51.7) % Monocytes % (4.7-12.5) % Eosinophils % (0.7-5.8) % Basophils % (0.1-1.2) % Absolute Granulocytes (1.56-6.13) x10^3/uL Basophils # (0.01-0.08) x10^3/uL Sodium (135-145) mmol/L Potassium (3.5-5.1) mmol/L Chloride (98-107) mmol/L Carbon Dioxide (22-30) mmol/L Anion Gap (5-15) MEQ/L BUN (7-17) mg/dL Creatinine (0.52-1.04) mg/dL Estimated GFR ML/MIN Glucose (74-106) mg/dL POC Glucometer 227 H (74 to 106) mg/dL Hemoglobin A1c (4.5-6.0) % Calcium (8.4-10.2) mg/dL Total Bilirubin (0.2-1.3) mg/dL AST (14-36) U/L ALT (0-35) U/L Alkaline Phosphatase (38-126) U/L Serum Total Protein (6.3-8.2) g/dL Albumin (3.5-5.0) g/dL Slides for Path Review Radiology Exams: Radiology Procedures Category Date Time Status CHEST 1 VIEW (PORTABLE) Stat Exams 01/12/24 21:22 Completed Multi-Disciplinary Progress Notes: Multi-Disciplinary Progress Notes 01/13/24 11:39 Case Management Note by Ashley Kennedy S/W CATA AT [facility]- PATIENT HAD ALL 100 MEDICARE DAYS WHEN PATIENT CAME TO THEM ON 12/15. SHE DCD HOME ON 01/06. PATIENT HAD MEDICARE DAYS LEFT BUT WAS GOING TO BE IN HER COPAY DAYS. SHE REPORTED THEY TOLD PATIENT SHE COULD STAY AT [facility] AND CONTINUE REHAB AND HER SECONDARY INSURANCE WOULD AMMUNITION SUPERVISOR HER COPAY BUT FAMILY DECIDED TO GO AHEAD AND TAKE HER HOME AT THAT TIME. Initialized on 01/13/24 11:39 - END OF NOTE 01/13/24 11:35 Case Management Note by Ashley Kennedy PATIENT HAS [facility]. THEY WERE NOTIFIED PATIENT HERE INPT. THEY WILL NEED NOTIFIED AT TIME OF DC AT [phone]. THEY WILL NEED FAXED THE DC INSTRUCTIONS, DC MED LIST AND DC SUMMARY TO [phone] Initialized on 01/13/24 11:35 - END OF NOTE Assessment/Plan (1) Acute cystitis Current Visit: Yes Status: Acute Assessment & Plan: -Ua suspicious for UTI, started on ceftriaxone, will continue and follow cultures -Patient does follow with urology as OP - Krista Nevarez -advised close follow up with recurrent UTIs Code(s): N30.00 - ACUTE CYSTITIS WITHOUT HEMATURIA (2) Generalized weakness Current Visit: Yes Status: Chronic Assessment & Plan: -2/2 to UTI -PT/OT -Recent stay at the [facility], appreciate PT recs Code(s): R53.1 - WEAKNESS (3) Type 2 diabetes mellitus Current Visit: Yes Status: Acute Assessment & Plan: Continue Lantus 4 units daily Placed on moderate dose sliding scale insulin AC/HS (4) CAD (coronary artery disease) Current Visit: Yes Status: Acute Assessment & Plan: -status post AVR Continue Plavix 75, Toprol-XL Code(s): I25.10 - ATHSCL HEART DISEASE OF [place] CORONARY ARTERY W/O ANG PCTRS (5) CHF (congestive heart failure) Current Visit: No Status: Chronic Qualifiers: Heart failure type: unspecified Heart failure chronicity: unspecified Qualified Code(s): I50.9 - Heart failure, unspecified Assessment & Plan: unknown if diastolic or systolic. On Bumex at home. hold Bumex 2 mg daily due to increase in creat Code(s): I50.9 - HEART FAILURE, UNSPECIFIED (6) Chronic kidney disease (CKD) Current Visit: No Status: Chronic Qualifiers: Chronic kidney disease stage: stage 3 (moderate) Chronic kidney disease stage 3 subtype: unspecified whether 3a or 3b Qualified Code(s): N18.30 - Chronic kidney disease, stage 3 unspecified Assessment & Plan: -baseline around 1.6-1.7, increased to 2.16 01/13/24 -gentle hydration -hold ARB/diurectic - avoid nephrotoxic meds -monitor renal/lytes daily CODE STATUS: Full code Prophylaxis: Heparin subcutaneous Diet: Diabetic Code(s): N18.9 - CHRONIC KIDNEY DISEASE, UNSPECIFIED
[2024-01-14] MEDS ORDERED: HUMALOG SQ PRN (06:05)
[2024-01-14 06:39] LABS: Absolute Neutrophil Ct (ANC) 2.96 x10^3/uL (1.56-6.13); BASOPHIL % 0.4 % (0.1-1.2); Basophil (Absolute #) 0.02 x10^3/uL (0.01-0.08); Eosinophil % 5.2 % (0.7-5.8); Eosinophil (Absolute #) 0.25 x10^3/uL (0.04-0.36); Hematocrit 30.2 % (34.1-44.9); IMMATURE GRAN # 0.02 x10^3u/L (0.001-0.031); IMMATURE GRAN % 0.4 % (0.001-0.429); Lymphocyte (Absolute #) 0.98 x10^3/uL (1.18-3.74); Lymphocytes % 20.5 % (19.3-51.7); Mean Cell Volume 94.7 fL (79.4-94.8); Mean Corpuscular Hemoglobin 31.3 pg (25.6-32.2); Mean Corpuscular Hgb Concent. 33.1 g/dL (32.2-35.5); Mean Platelet Volume 10.6 fL (9.4-12.3); Monocyte (Absolute #) 0.55 x10^3/uL (0.24-0.86); Monocytes % 11.5 % (4.7-12.5); Platelet Count 105 x10^3/uL (182-369); Red Blood Count 3.19 x10^6/uL (3.93-5.22); Red Cell Distribution Width 13.7 % (11.7-14.4); White Blood Count 4.8 x10^3/uL (3.98-10.04)
[2024-01-14 07:09] LABS: ALBUMIN 3.3 g/dL (3.5-5.0); ANION GAP 10.4 MEQ/L (5-15); BILIRUBIN,TOTAL 0.4 mg/dL (0.2-1.3); Creatinine 1 2.22 mg/dL (0.52-1.04); EST GLOMERULAR FILTRATION RATE 22.7 ML/MIN
[2024-01-14] MEDS: Docusate Sodium 100 MG PO SCH (08:17)
[2024-01-14] MEDS: HUMALOG SQ SCH (08:21)
[2024-01-14] MEDS: Sodium Chloride 0.9% 1000 ML 1,000 ML IV SCH (13:50)
[2024-01-15 05:28] LABS: BASOPHIL % 0.4 % (0.1-1.2); Basophil (Absolute #) 0.02 x10^3/uL (0.01-0.08); Eosinophil % 4.2 % (0.7-5.8); Eosinophil (Absolute #) 0.21 x10^3/uL (0.04-0.36); Hematocrit 27.8 % (34.1-44.9); Hemoglobin 9.1 g/dL (11.2-15.7); IMMATURE GRAN # 0.02 x10^3u/L (0.001-0.031); IMMATURE GRAN % 0.4 % (0.001-0.429); Mean Cell Volume 93.6 fL (79.4-94.8); Mean Corpuscular Hemoglobin 30.6 pg (25.6-32.2); Mean Corpuscular Hgb Concent. 32.7 g/dL (32.2-35.5); Mean Platelet Volume 11.3 fL (9.4-12.3); Monocyte (Absolute #) 0.46 x10^3/uL (0.24-0.86); Monocytes % 9.2 % (4.7-12.5); Neutrophil % 61.8 % (34.0-71.1); Platelet Count 115 x10^3/uL (182-369); Red Blood Count 2.97 x10^6/uL (3.93-5.22); Red Cell Distribution Width 13.5 % (11.7-14.4)
[2024-01-15 05:52] LABS: ANION GAP 9.7 MEQ/L (5-15); BILIRUBIN,TOTAL 0.3 mg/dL (0.2-1.3); Calcium 9.1 mg/dL (8.4-10.2); Creatinine 1 1.8 mg/dL (0.52-1.04); EST GLOMERULAR FILTRATION RATE 29.2 ML/MIN; Potassium 4.5 mmol/L (3.5-5.1); Total Protein 5.3 g/dL (6.3-8.2)
[2024-01-15] MEDS: HUMALOG SQ PRN (09:12)
[2024-01-15 11:26] VITALS: BP 158/86; PULSE 88; RESP 18; TEMP 98.2; O2SAT 95
--- NOTE | 2024-01-15 12:29 | PCM.DS ---
Discharge Summary Date of Admission: 01/13/24 09:00 Date of Discharge: 01/15/24 Admitting Physician: ROLAN SOUSA MD Primary Care Provider: MARIO,SONIA Allergies Allergies hydromorphone [From Dilaudid] Allergy (Severe, Verified 01/13/24 00:20) Difficulty Breathing meclofenamic acid [From Meclomen] Allergy (Severe, Verified 01/13/24 00:20) Skin Irritation morphine Allergy (Severe, Verified 01/13/24 00:20) Difficulty Breathing Sulfa (Sulfonamide Antibiotics) Allergy (Severe, Verified 01/13/24 00:20) Extreme constipation ciprofloxacin [From Cipro] Allergy (Intermediate, Verified 01/13/24 00:20) Itching diphenhydramine [From Benadryl] Allergy (Intermediate, Verified 01/13/24 00:20) Swelling of Tongue and Lips pt unable to take po due to swelling of tongue and lips. Can take IM. Hospital Summary - Hospital Course Hospital Course: ariela Estrada is 73-year-old woman with a history of CKD stage III, DM2, HTN, CHF, CAD,admitted 01/13/24 acute cystitis and generalized weakness. Recent admission at [facility] 12/08 with UTI with enterococcus and streptococcus, requiring 1 week long hospitalization, medicated by severe diffuse weakness requiring stay at [facility] for postacute rehab. She had improved, was ambulating independently again at home, but today she had fevers and chills, temperature of 102, as well as general malaise. Ucult with Ecoli. IP treatment with Rocephin. Blood and urine cultures NGTD. Labs are at baseline. Appetite and energy levels have improved. Patient will discharge home with [facility]. She is to follow up with urology/ ID for recurrent UTIs. Will send her home with cefdinir. Discharge Note New Diagnosis: UTI New Medications: Cefdinir Follow Up: urology/ID/PCP Latest Assessment & Plan (1) Acute cystitis Current Visit: Yes Status: Acute Assessment & Plan: -Ua suspicious for UTI, started on ceftriaxone, will continue and follow cultures -Patient does follow with urology as OP - Krista Nevarez -advised close follow up with recurrent UTIs Code(s): N30.00 - ACUTE CYSTITIS WITHOUT HEMATURIA (2) Generalized weakness Current Visit: Yes Status: Chronic Assessment & Plan: -2/2 to UTI -PT/OT -Recent stay at the [facility], [facility] PT recs Code(s): R53.1 - WEAKNESS (3) Type 2 diabetes mellitus Current Visit: Yes Status: Acute Assessment & Plan: Continue Lantus 4 units daily Placed on moderate dose sliding scale insulin AC/HS (4) CAD (coronary artery disease) Current Visit: Yes Status: Acute Assessment & Plan: -status post AVR Continue Plavix 75, Toprol-XL Code(s): I25.10 - ATHSCL HEART DISEASE OF [place] CORONARY ARTERY W/O ANG PCTRS (5) CHF (congestive heart failure) Current Visit: No Status: Chronic Qualifiers: Heart failure type: unspecified Heart failure chronicity: unspecified Qualified Code(s): I50.9 - Heart failure, unspecified Assessment & Plan: unknown if diastolic or systolic. On Bumex at home. hold Bumex 2 mg daily due to increase in creat Code(s): I50.9 - HEART FAILURE, UNSPECIFIED (6) Chronic kidney disease (CKD) Current Visit: No Status: Chronic Qualifiers: Chronic kidney disease stage: stage 3 (moderate) Chronic kidney disease stage 3 subtype: unspecified whether 3a or 3b Qualified Code(s): N18.30 - Chronic kidney disease, stage 3 unspecified Assessment & Plan: -baseline around 1.6-1.7, increased to 2.16 01/13/24 -gentle hydration -hold ARB/diurectic - avoid nephrotoxic meds -monitor renal/lytes daily I spent 35 minutes [id number] with the patient on the day of discharge performing discharge exam, discussing hospital stay and discharge instructions with patient and caregivers, preparation of discharge records, prescriptions & referral forms and addressing any questions/concerns the patient had as documented above. - Vitals & Intake/Output Vital Signs: Vital Signs Temperature 98.2 F 01/15/24 11:25 Pulse Rate 88 01/15/24 11:25 Respiratory Rate 18 01/15/24 11:25 Blood Pressure 158/86 01/15/24 11:25 O2 Sat by Pulse Oximetry 95 01/15/24 11:25 Intake & Output: Intake & Output 01/13/24 01/14/24 01/15/24 01/16/24 11:59 11:59 11:59 11:59 Intake Total 220 1540 2744 Output Total 300 Balance 220 1240 2744 Weight 97.9 kg - Lab Result Diagrams: 01/15/24 05:15 01/15/24 05:15 Lab Results-Last 24 Hrs: Lab Results-Last 24 Hours 01/15/24 01/15/24 Range/Units 05:15 05:15 WBC 5.0 (3.98-10.04) x10^3/uL RBC 2.97 L (3.93-5.22) x10^6/uL Hgb 9.1 L (11.2-15.7) g/dL Hct 27.8 L (34.1-44.9) % MCV 93.6 (79.4-94.8) fL MCH 30.6 (25.6-32.2) pg MCHC 32.7 (32.2-35.5) g/dL RDW 13.5 (11.7-14.4) % Plt Count 115 L (182-369) x10^3/uL MPV 11.3 (9.4-12.3) fL Gran % 61.8 (34.0-71.1) % Immature Gran % (Auto) 0.4 (0.001-0.429) % Nucleat RBC Rel Count 0.0 (0.00-0.2) % Eos # (Auto) 0.21 (0.04-0.36) x10^3/uL Immature Gran # (Auto) 0.02 (0.001-0.031) x10^3u/L Absolute Lymphs (auto) 1.20 (1.18-3.74) x10^3/uL Absolute Monos (auto) 0.46 (0.24-0.86) x10^3/uL Absolute Nucleated RBC 0.00 (0.00-0.012) x10^3u/L Lymphocytes % 24.0 (19.3-51.7) % Monocytes % 9.2 (4.7-12.5) % Eosinophils % 4.2 (0.7-5.8) % Basophils % 0.4 (0.1-1.2) % Absolute Granulocytes 3.10 (1.56-6.13) x10^3/uL Basophils # 0.02 (0.01-0.08) x10^3/uL Sodium 136 (135-145) mmol/L Potassium 4.5 (3.5-5.1) mmol/L Chloride 106 (98-107) mmol/L Carbon Dioxide 24 (22-30) mmol/L Anion Gap 9.7 (5-15) MEQ/L BUN 29 H (7-17) mg/dL Creatinine 1.80 H (0.52-1.04) mg/dL Estimated GFR 29.2 ML/MIN Glucose 240 H (74-106) mg/dL Calcium 9.1 (8.4-10.2) mg/dL Total Bilirubin 0.30 (0.2-1.3) mg/dL AST 25 (14-36) U/L ALT 28 (0-35) U/L Alkaline Phosphatase 102 (38-126) U/L Serum Total Protein 5.3 L (6.3-8.2) g/dL Albumin 3.0 L (3.5-5.0) g/dL Micro Results-Entire Visit: Microbiology 01/12/24 20:45 Urine Culture - Final Urine, Void Escherichia Coli 01/12/24 22:04 Blood Culture - Preliminary Blood 01/12/24 21:52 Blood Culture - Preliminary Blood Accuchecks Date 01/15/24 Date 01/15/24 Date 01/14/24 Date 01/14/24 Time 11:25 Time 07:06 Time 21:18 Time 15:57 - Procedures and Test Procedures and Tests throughout Hospitalization: Therapy Orders & Screens 01/13/24 00:13 PT Eval & Treat (MD Order) ONCE Reason for Eval:: Weakness. Range of motion, transferring Diagnosis: UTI, weakness Discharge Exam General Appearance: no apparent distress Neurologic Exam: alert, oriented x 3, cooperative Eye Exam: PERRL Ears, Nose, Throat Exam: normal ENT inspection Neck Exam: normal inspection Respiratory Exam: normal breath sounds, lungs clear Cardiovascular Exam: regular rate/rhythm, normal heart sounds Gastrointestinal/Abdomen Exam: soft, normal bowel sounds Pelvic Exam: deferred Rectal Exam: deferred Back Exam: normal inspection Extremity Exam: normal inspection Skin Exam: pale Wound Assessment: Skin/Wound Assessment Wound/Incision Assessment Start: 01/13/24 00:50 Text: Status: Active Freq: Q6H Protocol: Document 01/15/24 08:00 RB (Rec: 01/15/24 09:30 RB [id number]) Wound/Incision Assessment Medial Sacrum Wound Assessment Shift Assessment Wound Type Pressure Ulcer Wound Stage Stage II Dressing Status Dry & Intact Drainage Amount None General Appearance Open to air,Clean/Dry,Reddened Comment Healing stage 2, no open area noted Wound Photo Photo Taken Yes Comment: in chart Final Diagnosis/Problem List - Final Discharge Diagnosis/Problem (1) Acute cystitis Current Visit: Yes Status: Acute Code(s): N30.00 - ACUTE CYSTITIS WITHOUT HEMATURIA (2) Generalized weakness Current Visit: Yes Status: Chronic Code(s): R53.1 - WEAKNESS (3) Type 2 diabetes mellitus Current Visit: Yes Status: Chronic (4) CAD (coronary artery disease) Current Visit: Yes Status: Chronic Code(s): I25.10 - ATHSCL HEART DISEASE OF [place] CORONARY ARTERY W/O ANG PCTRS (5) CHF (congestive heart failure) Current Visit: No Status: Chronic Priority: High Code(s): I50.9 - HEART FAILURE, UNSPECIFIED (6) Chronic kidney disease (CKD) Current Visit: No Status: Chronic Code(s): N18.9 - CHRONIC KIDNEY DISEASE, UNSPECIFIED - Discharge Discharge Date: 01/15/24 Disposition: HOME HEALTH SERVICE Condition: Stable Prescriptions: New Cefdinir 300 mg PO BID 7 Days #14 cap Continue Multivitamin [Multi-Vitamin Daily] 1 tab PO DAILY Trazodone HCl 50 mg [Desyrel 50 mg] 100 mg PO HS Duloxetine HCl [Cymbalta] 60 mg PO DAILY Gabapentin [Neurontin] 600 mg PO QID Potassium Chloride Tab* [Klor Con] 20 meq PO BREAKFAST Isosorbide Mononitrate 30 mg [Imdur 30 MG] 30 mg PO DAILY Bumetanide [Bumex] 2 mg PO DAILY Nitroglycerin 0.4 mg Tablet [Nitrostat 0.4 MG Tablet] 0.4 mg SL Q5MIN PRN MR X 3 PRN PRN Reason: Pain Metoprolol Succinate 50 mg [Toprol Xl 50 MG] 25 mg PO DAILY Clopidogrel Bisulfate [PLAVIX Tablet] 75 mg PO DAILY allopurinoL [Zyloprim] 300 mg PO DAILY Insulin Lispro [Humalog] 0 unit SQ UD Glimepiride 4 mg [Amaryl 4 mg] 4 mg PO DAILY Losartan Potassium 25 mg PO DAILY OLANZapine [Olanzapine] 5 mg PO BID Amlodipine Besylate 5 mg PO DAILY Cholecalciferol (Vitamin D3) [Vitamin D3] 2,000 unit PO UD Evolocumab [Repatha Sureclick] 140 mg SQ UD Insulin Glargine,Hum.rec.anlog [Basaglar Kwikpen U-100] 4 unit SQ DAILY Cyanocobalamin (Vitamin B-12) [B-12] 1,000 mcg PO DAILY Vibegron [Gemtesa] 75 mg PO DAILY Montelukast Sodium 10 mg [Singulair 10 MG] 10 mg PO DAILY Tamsulosin HCl 0.4 mg [Flomax 0.4 MG] 0.4 mg PO BID Acetaminophen [Tylenol Arthritis] 1,300 mg PO BID PRN PRN PRN Reason: Pain Potassium Chloride Tab* [Klor Con] 10 meq PO LUNCH Bumetanide 2 mg PO DAILY PRN PRN PRN Reason: WEIGHT GAIN Potassium Chloride Tab* [Klor Con] 20 meq PO DINNER Ostomy Supply [Coloplast Paste] 0 TOP UD Follow up with: CAMERON CANO [CONSULTING PHYSICIAN] - Call for Appointment SUSAN BEAL [NON-STAFF PHY W/O PRIVILEGES] - 01/26/24 2:45 pm SONIA MARTIN MD [Primary Care Provider] - 01/26/24 4:00 pm (at [facility]) KRISTA NEVAREZ NP [ALLIED HEALTH PROFESSION STAFF] -
== END 2024-01-15 13:49 | disposition home health service (06) | DRG 690 ==
LOC: ED 20:44 → MED SURG 01-13 00:08 → OBSVTOIN 01-13 09:00
PROVIDERS: ADMIT Internal Medicine; ATTEND Internal Medicine
DX: N30.00 Acute cystitis without hematuria (principal); I13.0 Hypertensive heart and chronic kidney disease with heart failure and stage 1 through stage 4 chronic kidney disease, or unspecified chronic kidney disease; R53.1 Weakness; E11.22 Type 2 diabetes mellitus with diabetic chronic kidney disease; N18.30 Chronic kidney disease, stage 3 unspecified; I50.9 Heart failure, unspecified; I25.10 Atherosclerotic heart disease of native coronary artery without angina pectoris; L89.152 Pressure ulcer of sacral region, stage 2; Z79.01 Long term (current) use of anticoagulants; Z79.899 Other long term (current) drug therapy; Z85.3 Personal history of malignant neoplasm of breast
CPT/HCPCS: 0241U; 36000; 36415; 71045; 80053; 81001; 82306; 82570; 82947; 83036; 83605; 83735; 84156; 84550; 85025; 86308; 87040; 87077; 87086; 87186; 87651; 94760; 96360; 96365; 96374; 97110; 97161; 97530; 99285; Q3014; J0696; J1644; J1815; J1817; J2405; A9270-GY

== ENCOUNTER 2024-07-27 16:38 | Emergency (ER) | payer MEDICARE ==
--- NOTE | 2024-07-27 16:47 | ERPHSYRPT ---
- History of Present Illness Time Seen by Provider: 07/27/24 16:47 Source: patient, family, EMS, old records Exam Limitations: clinical condition Physician History: This is a 74-year-old white female patient that was brought to the emergency department accompanied by the patient's spouse from their primary care doctor's office, Dr. Martin. 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 Sylvester as her local product representative. Recently, the patient was told by the product representative to change her dosing of Bumex and potassium as the potassium level was slowly increasing. At the primary care physician's office the patient suddenly became confused and not talking right/normal. There has been no recent head trauma or injury. This occurred at approximately 1530. I interpreted outpatient labs dated 07/21/2024. At that time, the patient's potassium level was 4.7 and patient had a GFR of 22.4 and her BUN/creatinine was 42/2.23. The urinalysis on 07/21/2024, showed, in my opinion a urinary tract infection. The patient denies chest pain. Patient denies shortness of breath. Patient does have a history of chronic renal disease, CHF, diabetes, irritable bowel sy ndrome, fibromyalgia, arthritis and depression Timing/Duration: today Severity: mild (Moderate) Character of Deficits: none Deficits: no difficulties Baseline/Normal Cognition: alert oriented x 3 Current Cognition: alert but confused Associated Symptoms: confusion, No loss of consciousness, No chest pain, No headache Allergies/Adverse Reactions: hydromorphone [From Dilaudid] Allergy (Severe, Verified 01/13/24 00:20) Difficulty Breathing meclofenamic acid [From Meclomen] Allergy (Severe, Verified 01/13/24 00:20) Skin Irritation morphine Allergy (Severe, Verified 01/13/24 00:20) Difficulty Breathing Sulfa (Sulfonamide Antibiotics) Allergy (Severe, Verified 01/13/24 00:20) Extreme constipation ciprofloxacin [From Cipro] Allergy (Intermediate, Verified 01/13/24 00:20) Itching diphenhydramine [From Benadryl] Allergy (Intermediate, Verified 01/13/24 00:20) Swelling of Tongue and Lips pt unable to take po due to swelling of tongue and lips. Can take IM. nitrofurantoin Allergy (Intermediate, Verified 07/27/24 16:54) severe vomiting and shakes Home Medications: Bumetanide [Bumex] 2 mg PO DAILY 08/20/17 [History] Duloxetine HCl [Cymbalta] 60 mg PO DAILY 08/20/17 [History] Gabapentin [Neurontin] 600 mg PO QID 08/20/17 [History] Isosorbide Mononitrate 30 mg [Imdur 30 MG] 30 mg PO DAILY 08/20/17 [History] Multivitamin [Multi-Vitamin Daily] 1 tab PO DAILY 08/20/17 [History] Nitroglycerin 0.4 mg Tablet [Nitrostat 0.4 MG Tablet] 0.4 mg SL Q5MIN PRN MR X 3 PRN 08/20/17 [History] Potassium Chloride Tab* [Klor Con] 20 meq PO BREAKFAST 08/20/17 [History] Trazodone HCl 50 mg [Desyrel 50 mg] 100 mg PO HS 08/20/17 [History] Metoprolol Succinate 50 mg [Toprol Xl 50 MG] 25 mg PO DAILY 12/16/17 [History] Clopidogrel Bisulfate [PLAVIX Tablet] 75 mg PO DAILY 03/17/19 [History] Insulin Lispro [Humalog] 0 unit SQ UD 03/17/19 [History] allopurinoL [Zyloprim] 300 mg PO DAILY 03/17/19 [History] Glimepiride 4 mg [Amaryl 4 mg] 4 mg PO DAILY 06/12/19 [History] Amlodipine Besylate 5 mg PO DAILY 10/20/19 [History] Cholecalciferol (Vitamin D3) [Vitamin D3] 2,000 unit PO UD 10/20/19 [History] Losartan Potassium 25 mg PO DAILY 10/20/19 [History] OLANZapine [Olanzapine] 5 mg PO BID 10/20/19 [History] Evolocumab [Repatha Sureclick] 140 mg SQ UD 03/04/20 [History] Insulin Glargine,Hum.rec.anlog [Basaglar Kwikpen U-100] 4 unit SQ DAILY 03/04/20 [History] Cyanocobalamin (Vitamin B-12) [B-12] 1,000 mcg PO DAILY 03/05/20 [History] Acetaminophen [Tylenol Arthritis] 1,300 mg PO BID PRN PRN 11/26/22 [History] Montelukast Sodium 10 mg [Singulair 10 MG] 10 mg PO DAILY 11/26/22 [History] Tamsulosin HCl 0.4 mg [Flomax 0.4 MG] 0.4 mg PO BID 11/26/22 [History] Vibegron [Gemtesa] 75 mg PO DAILY 11/26/22 [History] Bumetanide 2 mg PO DAILY PRN PRN 01/13/24 [History] Ostomy Supply [Coloplast Paste] 0 TOP UD 01/13/24 [History] Potassium Chloride Tab* [Klor Con] 10 meq PO LUNCH 01/13/24 [History] Potassium Chloride Tab* [Klor Con] 20 meq PO DINNER 01/13/24 [History] Hx Tetanus, Diphtheria Vaccination/Date Given: Yes Hx Influenza Vaccination/Date Given: Yes Hx Pneumococcal Vaccination/Date Given: Yes Travel Risk - International Travel Have you traveled outside of the country in past 3 weeks: No - Emerging Infectious Disease Are you exhibiting symptoms associated with any current EIDs: No Symptoms: Fever, Headaches/Body Aches/ - Review of Systems Constitutional: Weakness Eyes: No Symptoms Ears, Nose, & Throat: No Symptoms Respiratory: No Symptoms Cardiac: No Symptoms Abdominal/Gastrointestinal: No Symptoms Genitourinary Symptoms: No Symptoms Musculoskeletal: Arthralgias, Myalgias Skin: No Symptoms Neurological: Other (Suddenly became confused) Psychological: No Symptoms Endocrine: No Symptoms Hematologic/Lymphatic: No Symptoms Immunological/Allergic: No Symptoms All Other Systems: Reviewed and Negative - Past Medical History Pertinent Past Medical History: Yes Neurological History: No Pertinent History ENT History: Cataracts Cardiac History: Hypertension Respiratory History: No Pertinent History, CHF Endocrine Medical History: Diabetes Type II Musculoskeletal History: Arthritis, Fibromyalgia GI Medical History: Irritable Bowel History: Renal Disease, Other Psycho-Social History: Anxiety, Depression Female Reproductive Disorders: Breast Cancer Other Medical History: ADMITTED FOR 11/26 FOR PNA,01/04 FOR BLOOD CLOTS AND ANTIBIOTICS FOR RESIDUAL PNA. LUMBAR SX TLIF MAR 2020, CKD STAGE 4, CONGESTIVE HEART FAILURE, TAVR 2015, DM, LUPUS, IBS, GERD, ANXIETY, DEPRESSION, BIPOLAR. BROKEN RLE. SX: INSTESTINAL BYPASS AND REVERSAL, LEFT MASTECTOMY, TAVER, LUMBAR LAMINECTOMY 2017, STEROID INJECTIONS. - Past Surgical History Past Surgical History: Yes Neuro Surgical History: No Pertinent History Cardiac: Other Respiratory: No Pertinent History Gastrointestinal: Appendectomy, Cholecystectomy Genitourinary: No Pertinent History Musculoskeletal: No Pertinent History Female Surgical History: Hysterectomy, Section, Tubal Ligation, Lumpectomy Other Surgical History: intestinal bypass and then reverse,sinus surgery times 2 roof/mouth then sinus surgery nose,left foot planters wart,right breast tumor,rt ankle/right leg sx after fx,left breast mastectomy with sentinel removed,6 marek steroid inj,t.a.v.r.-transcatheter aortic value replacement,lumbar laminectomy, steroid injections in back multiple times a year Significant Family History: no pertinent family hx - Social History Smoking Status: Never smoker Exposure to second hand smoke: No Drug Use: none Patient Lives Alone: No - Social Determinants of Health Will the patient participate in the screening: Yes Do you worry about a steady place to live?: No In the past 12 months,have you had to go without utilities?: No Transportation Issues: No Has anyone in your support network made you feel unsafe?: No Have you or anyone in your house had to go without enough: No - Nursing Vital Signs Nursing Vital Signs: Initial Vital Signs Temperature 96.9 F 07/27/24 16:38 Pulse Rate 60 07/27/24 16:38 Respiratory Rate 18 07/27/24 16:38 O2 Sat by Pulse Oximetry 95 07/27/24 16:38 Pain Scale Pain Intensity 0 - [place] Coma Scale Best Eye Response ([place]): (4) open spontaneously Best Verbal Response ([place]): (5) oriented Best Motor Response ([place]): (6) obeys commands [place] Total: 15 - Physical Exam General Appearance: no apparent distress, alert Eye Exam: bilateral eye: normal inspection, PERRL, EOMI Ears, Nose, Throat Exam: normal ENT inspection, TMs normal, moist mucous membranes Neck Exam: normal inspection, non-tender, supple, full range of motion Respiratory: normal breath sounds, lungs clear, airway intact, No chest tenderness, No respiratory distress Cardiovascular: regular rate/rhythm, normal heart sounds, normal peripheral pulses Gastrointestinal: soft, normal bowel sounds, No tenderness Pelvic Exam: not done Rectal Exam: not done Back Exam: normal inspection, normal range of motion, No CVA tenderness, No vertebral tenderness Extremity Exam: normal inspection, normal range of motion, pelvis stable Mental Status: alert, oriented x 3, 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 When compared to twelve-lead EKG dated 01/04/2023, today's twelve-lead EKG shows prolonged QT interval of 554) Ordered Tests: Active Orders 24 hr Category Date Time Status E Commerce Web Developer STAT Care 07/27/24 17:02 Active EKG-ER Only STAT Care 07/27/24 17:01 Active IV Insertion STAT Care 07/27/24 17:01 Active NPO (ED) STAT Care 07/27/24 17:01 Active POCT Glucose Check STAT Care 07/27/24 17:01 Active Pulse Oximetry (ED) STAT Care 07/27/24 17:01 Active HEAD WITHOUT CONTRAST [CT] Stat Exams 07/27/24 17:01 Taken CBC W DIFF Stat Lab 07/27/24 17:17 Completed CMP Stat Lab 07/27/24 17:17 Completed MAGNESIUM Stat Lab 07/27/24 17:17 Completed MONO SCREEN Stat Lab 07/27/24 17:17 Completed UA W/RFX UR CULTURE Stat Lab 07/27/24 17:01 Ordered Medication Summary Generic Name Dose Route Start Last Admin Trade Name Freq PRN Reason Stop Dose Admin Sodium Chloride 1,000 mls @ 100 mls/hr 07/27/24 17:15 07/27/24 17:44 Sodium Chloride 0.9% 1000 Ml IV 08/26/24 17:14 100 mls/hr .Q10H CESAR Administration Lab/Rad Data: Laboratory Result Diagrams 07/27/24 17:17 07/27/24 17:17 Laboratory Results 07/27/24 07/27/24 07/27/24 Range/Units 17:30 17:17 17:17 WBC (3.98-10.04) x10^3/uL RBC (3.93-5.22) x10^6/uL Hgb (11.2-15.7) g/dL Hct (34.1-44.9) % MCV (79.4-94.8) fL MCH (25.6-32.2) pg MCHC (32.2-35.5) g/dL RDW (11.7-14.4) % Plt Count (182-369) x10^3/uL MPV (9.4-12.3) fL Gran % (34.0-71.1) % Immature Gran % (Auto) (0.001-0.429) % Nucleat RBC Rel Count (0.00-0.2) % Eos # (Auto) (0.04-0.36) x10^3/uL Immature Gran # (Auto) (0.001-0.031) x10^3u/L Absolute Lymphs (auto) (1.18-3.74) x10^3/uL Absolute Monos (auto) (0.24-0.86) x10^3/uL Absolute Nucleated RBC (0.00-0.012) x10^3u/L Lymphocytes % (19.3-51.7) % Monocytes % (4.7-12.5) % Eosinophils % (0.7-5.8) % Basophils % (0.1-1.2) % Absolute Granulocytes (1.56-6.13) x10^3/uL Basophils # (0.01-0.08) x10^3/uL Sodium 135 (135-145) mmol/L Potassium 5.0 (3.5-5.1) mmol/L Chloride 99 (98-107) mmol/L Carbon Dioxide 28 (22-30) mmol/L Anion Gap 12.3 (5-15) MEQ/L BUN 48 H (7-17) mg/dL Creatinine 2.52 H (0.52-1.04) mg/dL Estimated GFR 19.4 ML/MIN Glucose 120 H (74-106) mg/dL Calcium 9.5 (8.4-10.2) mg/dL Magnesium 2.3 (1.6-2.3) mg/dL Total Bilirubin 0.50 (0.2-1.3) mg/dL AST 30 (14-36) U/L ALT 14 (0-35) U/L Alkaline Phosphatase 100 (38-126) U/L Serum Total Protein 7.4 (6.3-8.2) g/dL Albumin 4.4 (3.5-5.0) g/dL Monoscreen NEGATIVE (NEGATIVE) Influenza Type A Ag NEGATIVE (NEGATIVE) Influenza Type B Ag NEGATIVE (NEGATIVE) RSV (PCR) NEGATIVE (NEGATIVE) SARS-CoV-2 (PCR) NEGATIVE (NEGATIVE) 07/27/24 Range/Units 17:17 WBC 9.0 (3.98-10.04) x10^3/uL RBC 3.53 L (3.93-5.22) x10^6/uL Hgb 11.0 L (11.2-15.7) g/dL Hct 32.3 L (34.1-44.9) % MCV 91.5 (79.4-94.8) fL MCH 31.2 (25.6-32.2) pg MCHC 34.1 (32.2-35.5) g/dL RDW 14.4 (11.7-14.4) % Plt Count 167 L (182-369) x10^3/uL MPV 10.8 (9.4-12.3) fL Gran % 60.5 (34.0-71.1) % Immature Gran % (Auto) 0.2 (0.001-0.429) % Nucleat RBC Rel Count 0.0 (0.00-0.2) % Eos # (Auto) 0.37 H (0.04-0.36) x10^3/uL Immature Gran # (Auto) 0.02 (0.001-0.031) x10^3u/L Absolute Lymphs (auto) 2.36 (1.18-3.74) x10^3/uL Absolute Monos (auto) 0.76 (0.24-0.86) x10^3/uL Absolute Nucleated RBC 0.00 (0.00-0.012) x10^3u/L Lymphocytes % 26.2 (19.3-51.7) % Monocytes % 8.4 (4.7-12.5) % Eosinophils % 4.1 (0.7-5.8) % Basophils % 0.6 (0.1-1.2) % Absolute Granulocytes 5.45 (1.56-6.13) x10^3/uL Basophils # 0.05 (0.01-0.08) x10^3/uL Sodium (135-145) mmol/L Potassium (3.5-5.1) mmol/L Chloride (98-107) mmol/L Carbon Dioxide (22-30) mmol/L Anion Gap (5-15) MEQ/L BUN (7-17) mg/dL Creatinine (0.52-1.04) mg/dL Estimated GFR ML/MIN Glucose (74-106) mg/dL Calcium (8.4-10.2) mg/dL Magnesium (1.6-2.3) mg/dL Total Bilirubin (0.2-1.3) mg/dL AST (14-36) U/L ALT (0-35) U/L Alkaline Phosphatase (38-126) U/L Serum Total Protein (6.3-8.2) g/dL Albumin (3.5-5.0) g/dL Monoscreen (NEGATIVE) Influenza Type A Ag (NEGATIVE) Influenza Type B Ag (NEGATIVE) RSV (PCR) (NEGATIVE) SARS-CoV-2 (PCR) (NEGATIVE) - Progress Progress: improved, re-examined Progress Note: 07/27/24 18:21 My medical decision making of the assignment of at least moderate complexity is based on review of the patient's past medical history, review of the patient's medication list, review of the patient's drug allergy list, history present illness and physical findings on examination. The workup in this patient includes CT scan of the head, urinalysis, CBC, CMP, twelve-lead EKG, troponin level, magnesium level viral swabs, monotest. Differential diagnosis includes but is not limited to acute intracranial abnormality, urinary tract infection, dehydration, electrolyte abnormalities, arrhythmia 07/27/24 18:56 I interpreted the patient's laboratory data results. The laboratory results that have returned show stable chronic changes. We are still awaiting the urinalysis. The CT scan of the head without contrast was interpreted by the radiologist and I reviewed the impression. There is nonacute senile brain with remote lacunar infarct of the brainstem. There is also a stable small remote infarct of the right cerebellum. 07/27/24 19:16 I reexamined the patient. The patient has no chest pain. She is not short of breath. She has no abdominal pain. Patient is no longer confused. The also stated that the confusion is completely resolved. I sat down and spoke with the patient and the patient's and we reviewed several different days of lab work that was done in the last couple of weeks. In addition, we compared results of the CT scan of the head dated 12/14/2023. The patient's potassium level is high normal. Her renal function decreased from 22 GFR to 19.6. Patient's stated that the patient was told by the product representative just yesterday to stop the original dosing of her potassium and Bumex. I will have him not give her her potassium evening dose. He wants to take the patient home and he will call the product representative tomorrow morning. 07/27/24 19:19 Patient's stated that she has had 3 different urinalysis tests in the last 1 to 2 weeks and all were negative for urinary tract infection. He does not want to have the urinalysis this evening. Counseled pt/family regarding: lab results, diagnosis, rad results Medical Desision Making - Independent Historian Additional History obtained from: Spouse - Diagnostic Testing Diagnostic test were ordered, analyzed, and reviewed by me: Yes Radiological Interpretation: Reviewed by me, Teleradiologist Report - Risk of complications Low Risk: Low risk of morbidity from additional dx testing or treatment - Departure Departure Disposition: Home Clinical Impression: Confusion, Chronic renal disease Condition: Stable Critical Care Time: No Referrals: SONIA MARTIN MD [Primary Care Provider] - Follow up/PCP as directed Additional Instructions: Do not give the patient her evening potassium dose. Call Dr. Sylvester, your product representative, tomorrow morning, 07/28/2024, to make arranges for follow-up appointment and for instructions regarding your Bumex diuretic and potassium dosing. Your GFR today was 19.6. Your potassium level was 5.0
[2024-07-27 16:53] VITALS: RESP 18; TEMP 96.9
[2024-07-27 17:35] LABS: Absolute Neutrophil Ct (ANC) 5.45 x10^3/uL (1.56-6.13); BASOPHIL % 0.6 % (0.1-1.2); Basophil (Absolute #) 0.05 x10^3/uL (0.01-0.08); Eosinophil % 4.1 % (0.7-5.8); Eosinophil (Absolute #) 0.37 x10^3/uL (0.04-0.36); Hematocrit 32.3 % (34.1-44.9); IMMATURE GRAN # 0.02 x10^3u/L (0.001-0.031); IMMATURE GRAN % 0.2 % (0.001-0.429); Lymphocyte (Absolute #) 2.36 x10^3/uL (1.18-3.74); Lymphocytes % 26.2 % (19.3-51.7); Mean Cell Volume 91.5 fL (79.4-94.8); Mean Corpuscular Hemoglobin 31.2 pg (25.6-32.2); Mean Corpuscular Hgb Concent. 34.1 g/dL (32.2-35.5); Mean Platelet Volume 10.8 fL (9.4-12.3); Monocyte (Absolute #) 0.76 x10^3/uL (0.24-0.86); Monocytes % 8.4 % (4.7-12.5); Neutrophil % 60.5 % (34.0-71.1); Platelet Count 167 x10^3/uL (182-369); Red Blood Count 3.53 x10^6/uL (3.93-5.22); Red Cell Distribution Width 14.4 % (11.7-14.4)
[2024-07-27 17:41] VITALS: BP 209/66
[2024-07-27] MEDS ORDERED: Sodium Chloride 0.9% 1000 ML 1,000 ML ONE (17:43)
[2024-07-27 17:44] LABS: ALBUMIN 4.4 g/dL (3.5-5.0); ANION GAP 12.3 MEQ/L (5-15); BILIRUBIN,TOTAL 0.5 mg/dL (0.2-1.3); Calcium 9.5 mg/dL (8.4-10.2); Creatinine 1 2.52 mg/dL (0.52-1.04); EST GLOMERULAR FILTRATION RATE 19.4 ML/MIN; MAGNESIUM 2.3 mg/dL (1.6-2.3); Total Protein 7.4 g/dL (6.3-8.2)
[2024-07-27] MEDS: Sodium Chloride 0.9% 1000 ML 1,000 ML IV SCH (17:44)
[2024-07-27 18:16] LABS: INFLUENZA A NEGATIVE (NEGATIVE); INFLUENZA B NEGATIVE (NEGATIVE); RESPIRATORY SYNCTIAL VIRUS NEGATIVE (NEGATIVE); SARS-CoV-2 Xpert Express NEGATIVE (NEGATIVE)
[2024-07-27 19:36] VITALS: PULSE 78; O2SAT 97
--- NOTE | 2024-07-28 08:40 | XRAY ---
Indication: Sudden onset confusion. Multiple contiguous axial images obtained through the head without contrast. Comparison: September 22, 2023 Again age-appropriate global atrophy, minimal periventricular degenerative micro-ischemia bilaterally, remote lacunar infarct brain stem, and small remote infarct inferior right cerebellum. No acute intracranial hemorrhage, abnormal extra-axial fluid collection, or mass effect. Fourth ventricle is midline without hydrocephalus. Bony calvarium intact again with diffuse dense calvarial thickening. Visualized paranasal sinuses and mastoid air cells are clear. Impression: Again nonacute senile brain with remote lacunar infarct brain stem and small remote infarct right cerebellum. Again incidental diffuse bony hyperostosis. No new/acute intracranial abnormalities.
== END 2024-07-27 19:36 | disposition home or self-care (01) ==
LOC: ED 16:38
DX: R41.0 Disorientation, unspecified (principal); I13.0 Hypertensive heart and chronic kidney disease with heart failure and stage 1 through stage 4 chronic kidney disease, or unspecified chronic kidney disease; I50.9 Heart failure, unspecified; E11.22 Type 2 diabetes mellitus with diabetic chronic kidney disease; N18.4 Chronic kidney disease, stage 4 (severe); Z79.02 Long term (current) use of antithrombotics/antiplatelets; Z79.4 Long term (current) use of insulin; Z79.84 Long term (current) use of oral hypoglycemic drugs; Z79.899 Other long term (current) drug therapy
CPT/HCPCS: 0241U; 36415; 70450; 80053; 83735; 85025; 86308; 93005; 93041; 94760; 99285; 99284

== ENCOUNTER 2024-08-25 23:27 | Inpatient (IN) | payer MEDICARE ==
--- NOTE | 2024-08-25 23:30 | ERPHSYRPT ---
- History of Present Illness Time Seen by Provider: 08/25/24 23:29 Source: patient, EMS Exam Limitations: clinical condition Physician History: This is a 74-year-old white female patient brought into the emergency department by the paramedics and is a patient of Dr. Martin secondary to altered mental status that began 3 days ago and has been worsening since that time. There is no known head injury. Patient was able to tell me she has no pain anywhere. She is not oriented to place and time but she is more oriented to self then documented by the nurse evaluation. Patient has a history of hypertension, CHF, diabetes, fibromyalgia, chronic renal disease, history of gastroesophageal reflux disease, bipolar disorder and depression. Patient is on Plavix secondary to history of blood clots. Timing/Duration: day(s) (3), worse (Progressively worsening) Severity: moderate Allergies/Adverse Reactions: hydromorphone [From Dilaudid] Allergy (Severe, Verified 08/26/24 00:01) Difficulty Breathing meclofenamic acid [From Meclomen] Allergy (Severe, Verified 08/26/24 00:01) Skin Irritation morphine Allergy (Severe, Verified 08/26/24 00:01) Difficulty Breathing Sulfa (Sulfonamide Antibiotics) Allergy (Severe, Verified 08/26/24 00:01) Extreme constipation ciprofloxacin [From Cipro] Allergy (Intermediate, Verified 08/26/24 00:01) Itching diphenhydramine [From Benadryl] Allergy (Intermediate, Verified 08/26/24 00:01) Swelling of Tongue and Lips pt unable to take po due to swelling of tongue and lips. Can take IM. nitrofurantoin Allergy (Intermediate, Verified 08/26/24 00:01) severe vomiting and shakes Home Medications: Bumetanide [Bumex] 2 mg PO DAILY 08/20/17 [History] Duloxetine HCl [Cymbalta] 60 mg PO DAILY 08/20/17 [History] Gabapentin [Neurontin] 300 mg PO BID 08/20/17 [History] Isosorbide Mononitrate 30 mg [Imdur 30 MG] 30 mg PO DAILY 08/20/17 [History] Multivitamin [Multi-Vitamin Daily] 1 tab PO DAILY 08/20/17 [History] Nitroglycerin 0.4 mg Tablet [Nitrostat 0.4 MG Tablet] 0.4 mg SL Q5MIN PRN MR X 3 PRN 08/20/17 [History] Potassium Chloride Tab* [Klor Con] 20 meq PO BREAKFAST 08/20/17 [History] Trazodone HCl 50 mg [Desyrel 50 mg] 100 mg PO HS 08/20/17 [History] Metoprolol Succinate 50 mg [Toprol Xl 50 MG] 50 mg PO BID 12/16/17 [History] Clopidogrel Bisulfate [PLAVIX Tablet] 75 mg PO DAILY 03/17/19 [History] Insulin Lispro [Humalog] 0 unit SQ UD 03/17/19 [History] allopurinoL [Zyloprim] 300 mg PO DAILY 03/17/19 [History] Amlodipine Besylate 5 mg PO DAILY 10/20/19 [History] Losartan Potassium 100 mg PO DAILY 10/20/19 [History] OLANZapine [Olanzapine] 5 mg PO BID 10/20/19 [History] Evolocumab [Repatha Sureclick] 140 mg SQ UD 03/04/20 [History] Insulin Glargine,Hum.rec.anlog [Basaglar Kwikpen U-100] 6 unit SQ DAILY 03/04/20 [History] Cyanocobalamin (Vitamin B-12) [B-12] 1,000 mcg PO DAILY 03/05/20 [History] Acetaminophen [Tylenol Arthritis] 1,300 mg PO BID PRN PRN 11/26/22 [History] Montelukast Sodium 10 mg [Singulair 10 MG] 10 mg PO DAILY 11/26/22 [History] Tamsulosin HCl 0.4 mg [Flomax 0.4 MG] 0.4 mg PO BID 11/26/22 [History] Vibegron [Gemtesa] 75 mg PO DAILY 11/26/22 [History] Ostomy Supply [Coloplast Paste] 0 each TOP UD 01/13/24 [History] Potassium Chloride Tab* [Klor Con] 10 meq PO LUNCH 01/13/24 [History] Potassium Chloride Tab* [Klor Con] 20 meq PO DINNER 01/13/24 [History] Aspirin EC 81 mg [Ecotrin 81 mg] 81 mg PO DAILY 08/26/24 [History] Cholecalciferol (Vitamin D3) [Vitamin D] 2,000 unit PO WEEKLY 08/26/24 [History] Doxazosin Mesylate 2 mg [Cardura 2 mg] 1 tab PO QHS 08/26/24 [History] Famotidine 20 mg [Pepcid 20 MG] 40 mg PO BID 08/26/24 [History] Linaclotide [Linzess] 1 cap PO DAILY 08/26/24 [History] Methenamine/Sodium Salicylate [Azo Urinary Tract Defense Tab] 1 tab PO BID 08/26/24 [History] Sennosides/Docusate Sodium [Stool Softener-Stim Lax Tablet] 1 tab PO QID 08/26/24 [History] Hx Tetanus, Diphtheria Vaccination/Date Given: Yes Hx Influenza Vaccination/Date Given: Yes Hx Pneumococcal Vaccination/Date Given: Yes Travel Risk - Emerging Infectious Disease Are you exhibiting symptoms associated with any current EIDs: No Symptoms: Fever, Headaches/Body Aches/ - Past Medical History Pertinent Past Medical History: Yes Neurological History: No Pertinent History ENT History: Cataracts Cardiac History: Hypertension Respiratory History: No Pertinent History, CHF Endocrine Medical History: Diabetes Type II Musculoskeletal History: Arthritis, Fibromyalgia GI Medical History: Irritable Bowel History: Renal Disease, Other Psycho-Social History: Anxiety, Depression Female Reproductive Disorders: Breast Cancer Other Medical History: ADMITTED FOR 11/26 FOR PNA,01/04 FOR BLOOD CLOTS AND ANTIBIOTICS FOR RESIDUAL PNA. LUMBAR SX TLIF MAR 2020, CKD STAGE 4, CONGESTIVE HEART FAILURE, TAVR 2015, DM, LUPUS, IBS, GERD, ANXIETY, DEPRESSION, BIPOLAR. BROKEN RLE. SX: INSTESTINAL BYPASS AND REVERSAL, LEFT MASTECTOMY, TAVER, LUMBAR LAMINECTOMY 2016, STEROID INJECTIONS. - Past Surgical History Past Surgical History: Yes Neuro Surgical History: No Pertinent History Cardiac: Other Respiratory: No Pertinent History Gastrointestinal: Appendectomy, Cholecystectomy Genitourinary: No Pertinent History Musculoskeletal: No Pertinent History Female Surgical History: Hysterectomy, Section, Tubal Ligation, Lumpectomy Other Surgical History: intestinal bypass and then reverse,sinus surgery times 2 roof/mouth then sinus surgery nose,left foot planters wart,right breast tumor,rt ankle/right leg sx after fx,left breast mastectomy with sentinel removed,6 marek steroid inj,t.a.v.r.-transcatheter aortic value replacement,lumbar laminectomy, steroid injections in back multiple times a year Significant Family History: no pertinent family hx - Social History Smoking Status: Never smoker Exposure to second hand smoke: No Drug Use: none Patient Lives Alone: No - Social Determinants of Health Will the patient participate in the screening: Yes Do you worry about a steady place to live?: No In the past 12 months,have you had to go without utilities?: No Transportation Issues: No Has anyone in your support network made you feel unsafe?: No Have you or anyone in your house had to go w/o enough food: No - Nursing Vital Signs Nursing Vital Signs: Initial Vital Signs Temperature 99.2 F 08/25/24 23:34 Pulse Rate 77 08/25/24 23:34 Respiratory Rate 18 08/25/24 23:34 Blood Pressure 254/89 08/25/24 23:34 O2 Sat by Pulse Oximetry 96 08/25/24 23:34 Pain Scale Pain Intensity 0 - Course Nursing assessment & vital signs reviewed: Yes EKG Interpreted by Me: RATE (76), Sinus Rhythm, NORMAL AXIS, NORMAL QRS, Other (There are no acute ischemic changes. QTc is 41. There is evidence of left ventricular hypertrophy.) Ordered Tests: Active Orders 24 hr Category Date Time Status Fire Support Specialist STAT Care 08/26/24 00:32 Active EKG-ER Only STAT Care 08/26/24 00:32 Active IV Insertion STAT Care 08/26/24 00:32 Active NPO (ED) STAT Care 08/26/24 00:32 Active Pulse Oximetry (ED) STAT Care 08/26/24 00:32 Active HEAD WITHOUT CONTRAST [CT] Stat Exams 08/26/24 00:06 Completed CBC W DIFF Stat Lab 08/26/24 00:40 Completed CMP Stat Lab 08/26/24 00:40 Completed UA W/RFX UR CULTURE Stat Lab 08/26/24 01:52 Completed Urine Triage Profile Stat Lab 08/26/24 01:52 Received Medication Summary Discontinued Medications Generic Name Dose Route Start Last Admin Trade Name Freq PRN Reason Stop Dose Admin Hydralazine HCl 10 mg 08/26/24 04:16 08/26/24 04:28 Hydralazine Hcl 20 Mg/Ml Vial IV 08/26/24 04:17 10 mg STAT ONE Administration Labetalol HCl 10 mg 08/26/24 00:33 08/26/24 00:37 Labetalol Hcl 20 Mg/4 Ml Disp.Syringe IV 08/26/24 00:34 10 mg STAT ONE Administration Labetalol HCl Confirm 08/26/24 00:36 Labetalol Hcl 20 Mg/4 Ml Disp.Syringe Administered 08/26/24 00:37 Dose 20 mg IV .STK-MED ONE Labetalol HCl 10 mg 08/26/24 02:23 08/26/24 02:26 Labetalol Hcl 20 Mg/4 Ml Disp.Syringe IV 08/26/24 02:24 10 mg STAT ONE Administration Labetalol HCl Confirm 08/26/24 02:23 Labetalol Hcl 20 Mg/4 Ml Disp.Syringe Administered 08/26/24 02:24 Dose 20 mg IV .STK-MED ONE Lab/Rad Data: Laboratory Result Diagrams 08/26/24 00:40 08/26/24 00:40 Laboratory Results 08/26/24 08/26/24 08/26/24 Range/Units 01:52 00:40 00:40 WBC 8.5 (3.98-10.04) x10^3/uL RBC 3.58 L (3.93-5.22) x10^6/uL Hgb 11.2 (11.2-15.7) g/dL Hct 32.3 L (34.1-44.9) % MCV 90.2 (79.4-94.8) fL MCH 31.3 (25.6-32.2) pg MCHC 34.7 (32.2-35.5) g/dL RDW 14.2 (11.7-14.4) % Plt Count 161 L (182-369) x10^3/uL MPV 10.5 (9.4-12.3) fL Gran % 62.2 (34.0-71.1) % Immature Gran % (Auto) 0.2 (0.001-0.429) % Nucleat RBC Rel Count 0.0 (0.00-0.2) % Eos # (Auto) 0.33 (0.04-0.36) x10^3/uL Immature Gran # (Auto) 0.02 (0.001-0.031) x10^3u/L Absolute Lymphs (auto) 2.08 (1.18-3.74) x10^3/uL Absolute Monos (auto) 0.74 (0.24-0.86) x10^3/uL Absolute Nucleated RBC 0.00 (0.00-0.012) x10^3u/L Lymphocytes % 24.4 (19.3-51.7) % Monocytes % 8.7 (4.7-12.5) % Eosinophils % 3.9 (0.7-5.8) % Basophils % 0.6 (0.1-1.2) % Absolute Granulocytes 5.31 (1.56-6.13) x10^3/uL Basophils # 0.05 (0.01-0.08) x10^3/uL Sodium 135 (135-145) mmol/L Potassium 4.6 (3.5-5.1) mmol/L Chloride 96 L (98-107) mmol/L Carbon Dioxide 28 (22-30) mmol/L Anion Gap 14.7 (5-15) MEQ/L BUN 33 H (7-17) mg/dL Creatinine 2.08 H (0.52-1.04) mg/dL Estimated GFR 24.4 ML/MIN Glucose 135 H (74-106) mg/dL Calcium 9.2 (8.4-10.2) mg/dL Total Bilirubin 0.60 (0.2-1.3) mg/dL AST 29 (14-36) U/L ALT 12 (0-35) U/L Alkaline Phosphatase 109 (38-126) U/L Serum Total Protein 7.0 (6.3-8.2) g/dL Albumin 4.2 (3.5-5.0) g/dL Urine Color Yellow (Yellow) Urine Appearance Clear (Clear) Urine pH 7.0 (4.6-8.0) Ur Specific [place] 1.010 (1.005-1.030) Urine Protein 100 A (Negative) Urine Glucose (UA) Negative (Negative) mg/dL Urine Ketones Negative (Negative) Urine Blood Negative (Negative) Urine Nitrite Negative (Negative) Urine Bilirubin Negative (Negative) Urine Urobilinogen 0.2 (0.2) mg/dL Ur Leukocyte Esterase Negative (Negative) U Hyaline Cast (Auto) NONE SEEN (0-2) /LPF Urine Microscopic RBC 0-2 (0-5) /HPF Urine Microscopic WBC 3-5 (0-5) /HPF Ur Epithelial Cells None Seen (None Seen) /HPF Urine Bacteria None Seen (None Seen) /HPF Urine Culture Reflexed NO (NO) - Progress Progress: improved Progress Note: 08/26/24 03:10 My medical decision making and the assignment of at least moderate complexity is based on review of the patient's past medical history, review the patient's medication list, reviewed patient drug allergy list, history present illness and physical findings on examination. The workup in this patient includes plac ement of intravenous line, CBC, CMP, urinalysis, CT scan of the head without contrast. Differential diagnosis includes dementia, acute intracranial bleed, acute intracranial infarction, urinary tract infection The CT scan of the head without contrast was interpreted by the radiologist and I reviewed the impression. The impression states compared to July 27, 2024 similar study there is no evidence of acute intracranial abnormality. There are chronic microvascular changes. There is evidence of cerebral atrophy. 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 There are no significant interval changes when compared to prior CT scan of the head dated 07/27/2024 08/26/24 06:05 I interpreted the patient's laboratory data results. Based on the laboratory data results, the patient does not have any acute, emergent medical issue. Patient has chronic renal failure and her GFR is within her usual range. I spoke with teleneurologist, Dr. Rivera. He evaluated the patient and reviewed the workup performed. He does not feel that the patient has a stroke but he d oes feel the patient is every placed in the hospital and undergo an EEG. He stated that the patient could be given a trial of anticonvulsants if indicated. There were no other recommendations. He will be placing his note in the EMR. Counseled pt/family regarding: lab results, diagnosis, rad results - Departure Departure Disposition: Observation Clinical Impression: Altered mental status Hypertension Qualifiers: Hypertension type: primary hypertension Qualified Code(s): I10 - Essential (primary) hypertension Condition: Fair Critical Care Time: Yes Critical Care Time(excluding separately billable procedures): Critical 30-74 mins Referrals: SONIA MARTIN MD [Primary Care Provider] - Follow up/PCP as directed
[2024-08-26] MEDS ORDERED: TRANDATE 20 MG/4 ML SYRINGE IV ONE ×2 (00:36→02:23)
[2024-08-26] MEDS: TRANDATE 20 MG/4 ML SYRINGE IV ONE ×2 (00:37→02:26)
[2024-08-26 00:54] LABS: Absolute Neutrophil Ct (ANC) 5.31 x10^3/uL (1.56-6.13); BASOPHIL % 0.6 % (0.1-1.2); Basophil (Absolute #) 0.05 x10^3/uL (0.01-0.08); Eosinophil % 3.9 % (0.7-5.8); Eosinophil (Absolute #) 0.33 x10^3/uL (0.04-0.36); Hematocrit 32.3 % (34.1-44.9); Hemoglobin 11.2 g/dL (11.2-15.7); IMMATURE GRAN # 0.02 x10^3u/L (0.001-0.031); IMMATURE GRAN % 0.2 % (0.001-0.429); Lymphocyte (Absolute #) 2.08 x10^3/uL (1.18-3.74); Lymphocytes % 24.4 % (19.3-51.7); Mean Cell Volume 90.2 fL (79.4-94.8); Mean Corpuscular Hemoglobin 31.3 pg (25.6-32.2); Mean Corpuscular Hgb Concent. 34.7 g/dL (32.2-35.5); Mean Platelet Volume 10.5 fL (9.4-12.3); Monocyte (Absolute #) 0.74 x10^3/uL (0.24-0.86); Monocytes % 8.7 % (4.7-12.5); Neutrophil % 62.2 % (34.0-71.1); Platelet Count 161 x10^3/uL (182-369); Red Blood Count 3.58 x10^6/uL (3.93-5.22); Red Cell Distribution Width 14.2 % (11.7-14.4); White Blood Count 8.5 x10^3/uL (3.98-10.04)
[2024-08-26 01:09] LABS: ALBUMIN 4.2 g/dL (3.5-5.0); ANION GAP 14.7 MEQ/L (5-15); BILIRUBIN,TOTAL 0.6 mg/dL (0.2-1.3); Calcium 9.2 mg/dL (8.4-10.2); Creatinine 1 2.08 mg/dL (0.52-1.04); EST GLOMERULAR FILTRATION RATE 24.4 ML/MIN; Potassium 4.6 mmol/L (3.5-5.1)
--- NOTE | 2024-08-26 01:50 | XRAY ---
CLINICAL HISTORY: ams COMPARISON: 27 July 2024 TECHNIQUE: Multiple axial images are obtained from the skull base to the vertex without contrast. CT scan was performed according to ALARA (as low as reasonable achievable). FINDINGS: There is cerebral atrophy. 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 No evidence of space occupying lesion, hemorrhage, edema, mass effect, midline shift, extra axial collection, or hydrocephalus is noted. Basal cisterns are symmetric and normal in size and configuration. There are scattered periventricular hypodensities as can be seen with chronic microvascular ischemic changes. The francis-white matter differentiation is preserved. Visualized paranasal sinuses and mastoid air cells are well aerated. Orbital contents are within normal limits. Bony structures are intact. IMPRESSION: 1. No evidence of acute intracranial abnormality is demonstrated. 2. Chronic microvascular ischemic changes. 3. Cerebral atrophy. 4. 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 No significant interval change. Electronically Signed by: Elvis Shin MD. (08/26/2024 01:47:29 EST)
[2024-08-26 03:14] LABS: Appearance Clear (Clear); Bacteria None Seen /HPF (None Seen); Bilirubin Negative (Negative); Blood Negative (Negative); Epithelial Cells None Seen /HPF (None Seen); Glucose, Urine Negative (Negative); Hyaline Casts NONE SEEN /LPF (0-2); Ketones Negative (Negative); Leukocyte Esterase Negative (Negative); Nitrite Negative (Negative); Protein,Urine Dip 100 (Negative); RBC 0-2 /HPF (0-5); Urobilinogen 0.2 mg/dL (0.2)
[2024-08-26] MEDS: APRESOLINE 20 MG/ML INJ IV ONE ×2 (04:28→06:41)
--- NOTE | 2024-08-26 06:22 | PCM.CONS ---
History of Present Illness - Reason for Consult Chief Complaint: Confusion Date of Consultation Date: 08/26/24 Reason for Consult: Episodic confusion for several months Consulting Provider: TAMELA RIVERA MD History of Present Illness: [facility] Consultation Physician Signature This document was electronically signed by: Tamela Rivera MD Consult Cover Page FROM: [employer], Call Back Number: [phone] SUBJECT: Consult Recommendations Date and Time of Report: 08/26/2024 06:18 AM ET Items Contained in this Document: Neurology Consult Note Consult Information Member Facility: [facility] Facility Consult ID: [id number] Facility Time Zone: ET Date and Time of Request: 08-26-2024 04:22 AM ET Requesting Clinician: SHERYL VARGAS Patient Name: Karol Estrada Date of : 1950 Gender: Female Patient identity was confirmed at the beginning of the consult with the patient/family/staff using two personal identifiers: Patient name and Reason for Consult Reason for Consult: Other Emergency General Chief Complaint: Confusion, garbled speech over the past three days Patient Location and Admission Status: ED- Patient is not admitted Family Members and Medical Staff Present During Exam: Spouse and daughter at the bedside, RN assisting History of Present Illness: 74 year old hypertensive diabetic woman with a history of CAD, CHF, CKD, Bipolar, Depression, and multiple prior strokes, who reportedly has been confused and unable to speeck clearly over the past several days. For several months she has been experiencing transient episodes of confusion and decreased responsiveness, lasting minutes at a time before resolving. These episodes have become more frequent and have been lasting longer. Over the past week or two the episodes have occurred nearly daily. Over the past three days she has been nearly continuoulsy confused with only brief intervening episodes of clarity. Upon arrival in the ER today her blood pressure was extremely elevated at > 250/120. Over the past 20-30 minutes prior to the current examination she has become more responsive. Number of Documented HPI Elements: 4+ Medical History Medical History: Back pain, Coronary Artery Disease, Congestive Heart Failure, Depression, Diabetes Mellitus, Hypertension, Stroke Past Procedures: Cardiac Stents Pertinent Family History: Non contributory Allergies Allergies: Sulfa Other Allergies: Dialudid, Meclofenamic acid, Morphine, Cipro, Benadryl, Nitrofurantoin Medications Anti-Coagulants: None Anti-Platelets: ASA 81 mg, Plavix (Clopidogrel) Other Medications: Allopurinol, Vibegron, Trazodone, Tamsulosin, Senna, Potassium Chloride, Olanzapine, NTG, Multivitamin, Montelukast, Metoprolol, Methenamine, Losartan, Linzess, Isosorbide, Humalog, Gabapentin, Famotidine, Repatha, Duloxetine, Doxazosin, B12, D3, Bumex, Amlodipine Social History Alcohol Use: None Drug Use: None Tobacco Use: None Vital Signs Temperature: Afebrile Blood Pressure (mmHg): 164/114 Heart Rate (bpm): 87 Respiration Rate (/min): 15 O2 Sat (%): 96 POC Glucose(mg/dL): 135 Oxygen Delivery Method: Room Air EKG Rhythm: Sinus Rhythm Date and Time: 08/26/2024 05:30:23 AM ET POC Glucose(mg/dL): 135 Review Of Systems General, Constitutional: Pertinent Positives/Negatives General, Constitutional Comments: No recent fevers, cough, or malaise Neurological: Pertinent Positives/Negatives Neurological comments: Multiple prior strokes without focal deficits Psychiatric: Pertinent Positives/Negatives Psychiatric Comments: Bipolar, Depression Cardiovascular: Pertinent Positives/Negatives Cardiovascular Comments: CAD, CHF Gastrointestinal: Pertinent Positives/Negatives Gastrointestinal comments: GERD Genitourinary: Pertinent Positives/Negatives Genitourinary comments: CKD NIH Stroke Scale NIH Stroke Scale Score: 3 1. Level of Consciousness: 1 : not alert; arousable by minor stimulation to obey, answer, or respond. 1a. LOC Questions: 1 : Answers one question correctly. 1b. LOC Commands: 1 : Performs one task correctly. 2. Best Gaze: 0 : Normal. 3. Visual: 0 : No visual loss. 4. Facial Palsy: 0 : Normal symmetrical movements. 5a. Motor Left Arm: 0 : No drift; limb holds 90 (or 45) degrees for full 10 seconds. 5b. Motor Right Arm : 0 : No drift; limb holds 90 (or 45) degrees for full 10 seconds. 6a. Motor Left Le : No drift; leg holds 30-degree position for full 5 seconds. 6b. Motor Right Le : No drift; leg holds 30-degree position for full 5 seconds. 7. Limb Ataxia: 0 : Absent. 8. Sensory: 0 : Normal; no sensory loss. 9. Best Language: 0 : No aphasia; normal. 10. Dysarthria: 0 : Normal. 11. Extinction and inattention (formerly Neglect) : 0 : No abnormality. NIHSS Entry Time: 08/26/2024 05:35:39 AM ET Exam NEUROLOGICAL EXAMINATION MENTAL STATUS: She was lethargic, but responded to loud voice. She knew that she was in a hospital, but did not know the month or day of the week. She was able to name high frequency objects. She could follow verbal commands. Speech was clear. Language was fluent. CRANIAL NERVES: Eyes were midline on primary gaze. Extraocular movements were full and conjugate. There was no ptosis. Facial sensation was intact to light touch. There was no facial asymmetry. MOTOR: There was no pronator drift, myoclonus, or asterixis. Fine motor function was intact in both hands. She was able to elevate each leg off the bed for 5 seconds. SENSORY: Sensation was intact to light touch throughout COORDINATION: There was no nystagmus or dysmetria Clinician assisting with exam: RN assisting Labs and Imaging Labs available?: Yes Blood Glucose (mg/dL): 135 WBC (mcL): 8.5 HGB (g/dL): 11.2 HCT (%): 32.3 PLT (mcL): 161 Na (mEq/L): 135 K (mEq/L): 4.6 BUN (mg/dL): 33 Cr (mg/dL): 2.08 Other Labs: Calcium=9.2 CT: Cortical atrophy, chronic microvascular changes, chronic infarcts in the: left frontal, right erendira, and right cerebellar regions. No acute changes Assessment and Recommendations Assessment: 74 year old hypertensive diabetic woman with a history of CAD, CHF, CKD, Bipolar, Depression, and multiple prior strokes, who presents with multiple transient episodes of altered responsiveness of increasing frequency and duration over the past several months. She presents currently with a three-day history of confusion and garbled speech. She has had only brief intervals of intervening clarity over the past few days. There are no acute changes on CT or obvious infectious or metabolic abnormalities. The possibility of seizure activity should be considered. On arrival in the ER she had significant hypertension - raising the additional possibility of hypertensive encephalopathy. Recommendations: 1. EEG 2. Blood pressure control 3. Evaluate for underlying infection 4. Hepatic function tests, serum ammonia 5. Cerebral MRI 6. If additional unresponsive episodes occur, consider an empiric trial of IV Lorazepam. 6. Neurology follow-up pending above Disposition: Admit patient to general med/surgery Diagnosis Impression: Seizures Hypertensive Encephalopathy Case discussed with: Dr. Kimble Inclusion Criteria Neurological deficit considered to be disabling within 4.5 h of ischemic stroke symptom onset or patient last known well: No BP < 185/110: Yes Glucose > 50 mg/dL: Yes Exclusion Criteria Acute head trauma or recent severe head trauma within the previous 3 months: No Symptoms suggesting subarachnoid hemorrhage: No Elevated blood pressure despite IV medications (>185/>110 mm Hg): No Known coagulopathy - platelets <100,000/mm3, INR >1.7, aPTT >40s, PT >15s (do not wait for labs unless known thrombocytopenia or anticoagulation): No Thrombin inhibitors or factor Xa inhibitors - unless aPTT, INR, platelet count, ECT, TT, or appropriate direct factor Xa activity assays are normal or the patient has not received a dose for >48 hours (with normal renal function): No LMWH on anticoagulant (full treatment) dosing within < 24 hours: No Concomitant administration of IV Abciximab, or IV aspirin within 90 minutes after the start of IV alteplase initiation: No Extensive regions of marked clear and obvious hypodensity representing early ischemic changes irreversible injury: No Acute intracranial hemorrhage: No History of intracranial hemorrhage: No Symptoms consistent with infective endocarditis: No Known or suspected aortic arch dissection: No GI malignancy or recent GI bleed within 21 days: No Mild nondisabling stroke (NIHSS 0-5): No Prior ischemic stroke within previous 3 months: No Intracranial/intraspinal surgery within 3 months: No Intra-axial intracranial neoplasm: No Relative Exclusion Criteria One or more of the above relative contraindications render IV Thrombolysis inadvisable in my judgment.: No Thrombolysis Recommendation Thrombolysis recommended?: No Reason Thrombolysis not recommended Comments: No clinical signs of acute stroke ICD-10 Code ICD-10 Code (Primary): G40.89 : Other seizures ICD-10 Code: I67.4 : Hypertensive encephalopathy ICD-10 Code: I63.9 : Cerebral infarction, unspecified Attestation Interaction Mode: Video & Phone Time of Phone Call : 08-26-2024 05:38 AM ET Time of Video Call : 08-26-2024 04:40 AM ET Interaction Attestation: Clinical telemedicine services delivered using HIPAA- compliant interactive video-audio telecommunications while the patient and the rendering provider were not in the same physical location. Written report was provided to the requesting provider. Evaluation Duration (mins): 54 Dejesus Timer Summary Date and Time of Request: 08-26-2024 04:22 AM ET Physician Signature This document was electronically signed by: Tamela Rivera MD Medications & Allergies Home Medications: Home Medication List Bumetanide [Bumex] 2 mg PO DAILY 08/20/17 [History Confirmed 08/26/24] Duloxetine HCl [Cymbalta] 60 mg PO DAILY 08/20/17 [History Confirmed 08/26/24] Gabapentin [Neurontin] 300 mg PO BID 08/20/17 [History Confirmed 08/26/24] Isosorbide Mononitrate 30 mg [Imdur 30 MG] 30 mg PO DAILY 08/20/17 [History Confirmed 08/26/24] Multivitamin [Multi-Vitamin Daily] 1 tab PO DAILY 08/20/17 [History Confirmed 08/26/24] Nitroglycerin 0.4 mg Tablet [Nitrostat 0.4 MG Tablet] 0.4 mg SL Q5MIN PRN MR X 3 PRN 08/20/17 [History Confirmed 08/26/24] Potassium Chloride Tab* [Klor Con] 20 meq PO BREAKFAST 08/20/17 [History Confirmed 08/26/24] Trazodone HCl 50 mg [Desyrel 50 mg] 100 mg PO HS 08/20/17 [History Confirmed 08/26/24] Metoprolol Succinate 50 mg [Toprol Xl 50 MG] 50 mg PO BID 12/16/17 [History Confirmed 08/26/24] Clopidogrel Bisulfate [PLAVIX Tablet] 75 mg PO DAILY 03/17/19 [History Confirmed 08/26/24] Insulin Lispro [Humalog] 0 unit SQ UD 03/17/19 [History Confirmed 08/26/24] allopurinoL [Zyloprim] 300 mg PO DAILY 03/17/19 [History Confirmed 08/26/24] Amlodipine Besylate 5 mg PO DAILY 10/20/19 [History Confirmed 08/26/24] Losartan Potassium 100 mg PO DAILY 10/20/19 [History Confirmed 08/26/24] OLANZapine [Olanzapine] 5 mg PO BID 10/20/19 [History Confirmed 08/26/24] Evolocumab [Repatha Sureclick] 140 mg SQ UD 03/04/20 [History Confirmed 08/26/24] Insulin Glargine,Hum.rec.anlog [Basaglar Kwikpen U-100] 6 unit SQ DAILY 03/04/20 [History Confirmed 08/26/24] Cyanocobalamin (Vitamin B-12) [B-12] 1,000 mcg PO DAILY 03/05/20 [History Confirmed 08/26/24] Acetaminophen [Tylenol Arthritis] 1,300 mg PO BID PRN PRN 11/26/22 [History Confirmed 08/26/24] Montelukast Sodium 10 mg [Singulair 10 MG] 10 mg PO DAILY 11/26/22 [History Confirmed 08/26/24] Tamsulosin HCl 0.4 mg [Flomax 0.4 MG] 0.4 mg PO BID 11/26/22 [History Confirmed 08/26/24] Vibegron [Gemtesa] 75 mg PO DAILY 11/26/22 [History Confirmed 08/26/24] Ostomy Supply [Coloplast Paste] 0 each TOP UD 01/13/24 [History Confirmed 08/26/24] Potassium Chloride Tab* [Klor Con] 10 meq PO LUNCH 01/13/24 [History Confirmed 08/26/24] Potassium Chloride Tab* [Klor Con] 20 meq PO DINNER 01/13/24 [History Confirmed 08/26/24] Aspirin EC 81 mg [Ecotrin 81 mg] 81 mg PO DAILY 08/26/24 [History Confirmed 08/26/24] Cholecalciferol (Vitamin D3) [Vitamin D] 2,000 unit PO WEEKLY 08/26/24 [History Confirmed 08/26/24] Doxazosin Mesylate 2 mg [Cardura 2 mg] 1 tab PO QHS 08/26/24 [History Confirmed 08/26/24] Famotidine 20 mg [Pepcid 20 MG] 40 mg PO BID 08/26/24 [History Confirmed 08/26/24] Linaclotide [Linzess] 1 cap PO DAILY 08/26/24 [History Confirmed 08/26/24] Methenamine/Sodium Salicylate [Azo Urinary Tract Defense Tab] 1 tab PO BID 08/26/24 [History Confirmed 08/26/24] Sennosides/Docusate Sodium [Stool Softener-Stim Lax Tablet] 1 tab PO QID 08/26/24 [History Confirmed 08/26/24] Allergies/Adverse Reactions: Allergies Allergy/AdvReac Type Severity Reaction Status Date / Time hydromorphone [From Dilaudid] Allergy Severe Difficulty Verified 08/26/24 00:01 Breathing meclofenamic acid Allergy Severe Skin Verified 08/26/24 00:01 [From Meclomen] Irritation morphine Allergy Severe Difficulty Verified 08/26/24 00:01 Breathing Sulfa (Sulfonamide Allergy Severe Verified 08/26/24 00:01 Antibiotics) ciprofloxacin [From Cipro] Allergy Intermediate Itching Verified 08/26/24 00:01 diphenhydramine Allergy Intermediate Swelling Verified 08/26/24 00:01 [From Benadryl] of Tongue and Lips nitrofurantoin Allergy Intermediate severe Verified 08/26/24 00:01 vomiting and shakes - Past Medical History Past Medical History: Yes Neurological History: No Pertinent History ENT History: Cataracts Cardiac History: Hypertension Respiratory History: No Pertinent History, CHF Endocrine Medical History: Diabetes Type II Musculoskelatal History: Arthritis, Fibromyalgia GI Medical History: Irritable Bowel History: Renal Disease, Other Pyscho-Social History: Anxiety, Depression Reproductive Disorders: Breast Cancer Comment: ADMITTED FOR 11/26 FOR PNA,01/04 FOR BLOOD CLOTS AND ANTIBIOTICS FOR RESIDUAL PNA. LUMBAR SX TLIF MAR 2020, CKD STAGE 4, CONGESTIVE HEART FAILURE, TAVR 2015, DM, LUPUS, IBS, GERD, ANXIETY, DEPRESSION, BIPOLAR. BROKEN RLE. SX: INSTESTINAL BYPASS AND REVERSAL, LEFT MASTECTOMY, TAVER, LUMBAR LAMINECTOMY 2017, STEROID INJECTIONS. - Past Surgical History Past Surgical History: Yes Neuro Surgical History: No Pertinent History Cardiac History: Other Respiratory Surgery: No Pertinent History GI Surgical History: Appendectomy, Cholecystectomy Genitourinary Surgical Hx: No Pertinent History Musculskeletal Surgical Hx: No Pertinent History Female Surgical History: Hysterectomy, Section, Tubal Ligation, Lumpectomy Other Surgical History: intestinal bypass and then reverse,sinus surgery times 2 roof/mouth then sinus surgery nose,left foot planters wart,right breast tumor,rt ankle/right leg sx after fx,left breast mastectomy with sentinel removed,6 marek steroid inj,t.a.v.r.-transcatheter aortic value replacement,lumbar laminectomy, steroid injections in back multiple times a year Significant Family History: no pertinent family hx - Social History Smoking Status: Never smoker Exposure to second hand smoke: No Alcohol: None Drug Use: none - Social Determinants of Health Will the patient participate in the screening: Yes Do you worry about a steady place to live?: No Do you have any problems with any of the following?: No known problems In the past 12 months,have you had to go without utilities?: No Have you or anyone in your house had to go without enough: No Transportation Issues: No Has anyone in your support network made you feel unsafe?: No Does the patient want assistance with any of the above?: No - Physical Exam Vital Signs: Vital Signs - 24 hr Temp Pulse Resp BP BP Pulse Ox 08/26/24 06:00 84 12 157/88 95 08/26/24 05:46 86 15 190/78 95 08/26/24 05:30 84 7 L 165/105 94 L 08/26/24 05:15 84 10 L 199/90 97 08/26/24 05:13 86 13 195/99 97 08/26/24 05:10 87 19 96 08/26/24 05:02 87 13 96 08/26/24 04:45 88 16 164/114 89 L 08/26/24 04:30 87 15 181/88 97 08/26/24 04:16 88 15 186/87 95 08/26/24 04:00 89 16 200/80 95 08/26/24 03:45 87 10 L 211/93 96 02/20/25 03:30 88 12 201/94 95 08/26/24 03:15 88 12 212/99 96 08/26/24 03:00 88 12 220/83 96 08/26/24 02:45 88 12 202/98 95 08/26/24 02:30 88 13 94 L 08/26/24 02:17 87 13 262/183 96 08/26/24 02:00 87 12 202/109 96 08/26/24 01:49 116 H 22 210/112 95 08/26/24 01:46 90 16 231/88 08/26/24 01:30 90 17 221/99 96 08/26/24 01:16 87 16 220/110 08/26/24 01:10 86 17 200/108 95 08/26/24 01:09 86 15 96 08/26/24 01:00 87 14 08/26/24 00:50 84 18 95 08/26/24 00:47 83 17 96 08/26/24 00:32 96 08/26/24 00:31 85 17 195/164 96 08/26/24 00:02 86 17 206/144 93 L 08/25/24 23:34 99.2 F 77 18 254/89 96 Results - Labs Lab/Micro Results: Lab Results-Last 24 Hours 08/26/24 08/26/24 08/26/24 Range/Units 00:40 00:40 01:52 WBC 8.5 (3.98-10.04) x10^3/uL RBC 3.58 L (3.93-5.22) x10^6/uL Hgb 11.2 (11.2-15.7) g/dL Hct 32.3 L (34.1-44.9) % MCV 90.2 (79.4-94.8) fL MCH 31.3 (25.6-32.2) pg MCHC 34.7 (32.2-35.5) g/dL RDW 14.2 (11.7-14.4) % Plt Count 161 L (182-369) x10^3/uL MPV 10.5 (9.4-12.3) fL Gran % 62.2 (34.0-71.1) % Immature Gran % (Auto) 0.2 (0.001-0.429) % Nucleat RBC Rel Count 0.0 (0.00-0.2) % Eos # (Auto) 0.33 (0.04-0.36) x10^3/uL Immature Gran # (Auto) 0.02 (0.001-0.031) x10^3u/L Absolute Lymphs (auto) 2.08 (1.18-3.74) x10^3/uL Absolute Monos (auto) 0.74 (0.24-0.86) x10^3/uL Absolute Nucleated RBC 0.00 (0.00-0.012) x10^3u/L Lymphocytes % 24.4 (19.3-51.7) % Monocytes % 8.7 (4.7-12.5) % Eosinophils % 3.9 (0.7-5.8) % Basophils % 0.6 (0.1-1.2) % Absolute Granulocytes 5.31 (1.56-6.13) x10^3/uL Basophils # 0.05 (0.01-0.08) x10^3/uL Sodium 135 (135-145) mmol/L Potassium 4.6 (3.5-5.1) mmol/L Chloride 96 L (98-107) mmol/L Carbon Dioxide 28 (22-30) mmol/L Anion Gap 14.7 (5-15) MEQ/L BUN 33 H (7-17) mg/dL Creatinine 2.08 H (0.52-1.04) mg/dL Estimated GFR 24.4 ML/MIN Glucose 135 H (74-106) mg/dL Calcium 9.2 (8.4-10.2) mg/dL Total Bilirubin 0.60 (0.2-1.3) mg/dL AST 29 (14-36) U/L ALT 12 (0-35) U/L Alkaline Phosphatase 109 (38-126) U/L Serum Total Protein 7.0 (6.3-8.2) g/dL Albumin 4.2 (3.5-5.0) g/dL Urine Color Yellow (Yellow) Urine Appearance Clear (Clear) Urine pH 7.0 (4.6-8.0) Ur Specific [place] 1.010 (1.005-1.030) Urine Protein 100 A (Negative) Urine Glucose (UA) Negative (Negative) mg/dL Urine Ketones Negative (Negative) Urine Blood Negative (Negative) Urine Nitrite Negative (Negative) Urine Bilirubin Negative (Negative) Urine Urobilinogen 0.2 (0.2) mg/dL Ur Leukocyte Esterase Negative (Negative) U Hyaline Cast (Auto) NONE SEEN (0-2) /LPF Urine Microscopic RBC 0-2 (0-5) /HPF Urine Microscopic WBC 3-5 (0-5) /HPF Ur Epithelial Cells None Seen (None Seen) /HPF Urine Bacteria None Seen (None Seen) /HPF Urine Culture Reflexed NO (NO) - Radiology Impressions Radiology Exams & Impressions: Radiology Procedures Category Date Time Status HEAD WITHOUT CONTRAST [CT] Stat Exams 08/26/24 00:06 Completed
[2024-08-26] MEDS ORDERED: APRESOLINE 20 MG/ML INJ ONE (06:38)
[2024-08-26 06:40] LABS: Amphetamine,Urine NEGATIVE (NEGATIVE); Barbiturate,Urine NEGATIVE (NEGATIVE); Benzodiazepine,Urine NEGATIVE (NEGATIVE); Cocaine,Urine NEGATIVE (NEGATIVE); Methadone,Urine NEGATIVE (NEGATIVE); Opiate,Urine NEGATIVE (NEGATIVE); PCP,Urine NEGATIVE (NEGATIVE); THC,Urine NEGATIVE (NEGATIVE)
[2024-08-26] MEDS ORDERED: Zofran 4 MG/2 ML VIAL IV PRN (08:15)
[2024-08-26] MEDS: Sodium Chloride 0.9% 1000 ML 1,000 ML IV SCH (09:04)
[2024-08-26] MEDS ORDERED: Nitrostat 0.4 MG Tablet SL PRN (09:08)
[2024-08-26] MEDS ORDERED: [UNRECOGNIZED DRUG - OTHER] TOP SCH (09:15)
[2024-08-26] MEDS ORDERED: NON-FORMULARY ITEM (Evolocumab [Repatha Sureclick] 140 MG/ML Pen.Injctr) SQ SCH (09:15)
[2024-08-26] MEDS ORDERED: TYLENOL 325 MG PO PRN (09:25)
--- NOTE | 2024-08-26 09:29 | PCM.HP ---
<ADONIS HALL - Last Filed: 08/26/24 09:24> History of Present Illness - Chief Complaint Chief Complaint: AMS, SEIZURES, HTN, ENCEPHALPOPHY Date: 08/26/24 History of Present Illness: is a 74 year old female with PMHX of hypertension, CHF, diabetes, fibromyalgia, chronic renal disease, history of gastroesophageal reflux disease, bipolar disorder and depression. Patient is on Plavix secondary to history of blood clots. She was brought into the emergency department by the paramedics secondary to altered mental status that began 3 days ago and has been worsening since that time. There is no known head injury. Patient was able to tell me she has no pain anywhere. She is oriented to person and place, not time, + dysmetria. CT head negative. MRI brain and EEG ordered for further eval. Neurology consulted in ER and note reviewed. PT/ST/OT eval. - Review of Systems Constitutional: Fatigue, Weakness, No Fever, No Chills Eyes: No Symptoms Ears, Nose, & Throat: No Symptoms Respiratory: No Cough, No Short Of Breath Cardiac: No Chest Pain, No Edema, No Syncope Abdominal/Gastrointestinal: No Abdominal Pain, No Nausea, No Vomiting, No Diarrhea Genitourinary Symptoms: No Dysuria Musculoskeletal: No Back Pain, No Neck Pain Skin: No Rash Neurological: Other (oriented x2), No Dizziness, No Focal Weakness, No Sensory Changes Psychological: No Symptoms Endocrine: No Symptoms Hematologic/Lymphatic: No Symptoms Immunological/Allergic: No Symptoms Medications & Allergies Home Medications: Home Medication List Bumetanide [Bumex] 2 mg PO DAILY 08/20/17 [History Confirmed 08/26/24] Duloxetine HCl [Cymbalta] 60 mg PO DAILY 08/20/17 [History Confirmed 08/26/24] Gabapentin [Neurontin] 300 mg PO BID 08/20/17 [History Confirmed 08/26/24] Isosorbide Mononitrate 30 mg [Imdur 30 MG] 30 mg PO DAILY 08/20/17 [History Confirmed 08/26/24] Multivitamin [Multi-Vitamin Daily] 1 tab PO DAILY 08/20/17 [History Confirmed 08/26/24] Nitroglycerin 0.4 mg Tablet [Nitrostat 0.4 MG Tablet] 0.4 mg SL Q5MIN PRN MR X 3 PRN 08/20/17 [History Confirmed 08/26/24] Potassium Chloride Tab* [Klor Con] 10 meq PO BREAKFAST 08/20/17 [History Confirmed 08/26/24] Trazodone HCl 50 mg [Desyrel 50 mg] 100 mg PO HS 08/20/17 [History Confirmed 08/26/24] Metoprolol Succinate 50 mg [Toprol Xl 50 MG] 50 mg PO BID 12/16/17 [History Confirmed 08/26/24] Clopidogrel Bisulfate [PLAVIX Tablet] 75 mg PO DAILY 03/17/19 [History Confirmed 08/26/24] Insulin Lispro [Humalog] 0 unit SQ UD 03/17/19 [History Confirmed 08/26/24] allopurinoL [Zyloprim] 300 mg PO DAILY 03/17/19 [History Confirmed 08/26/24] Amlodipine Besylate 5 mg PO DAILY 10/20/19 [History Confirmed 08/26/24] Losartan Potassium 100 mg PO DAILY 10/20/19 [History Confirmed 08/26/24] OLANZapine [Olanzapine] 5 mg PO BID 10/20/19 [History Confirmed 08/26/24] Evolocumab [Repatha Sureclick] 140 mg SQ UD 03/04/20 [History Confirmed 08/26/24] Insulin Glargine,Hum.rec.anlog [Basaglar Kwikpen U-100] 6 unit SQ DAILY 03/04/20 [History Confirmed 08/26/24] Cyanocobalamin (Vitamin B-12) [B-12] 1,000 mcg PO DAILY 03/05/20 [History Confirmed 08/26/24] Acetaminophen [Tylenol Arthritis] 650 mg PO UD PRN 11/26/22 [History Confirmed 08/26/24] Montelukast Sodium 10 mg [Singulair 10 MG] 10 mg PO DAILY 11/26/22 [History Confirmed 08/26/24] Tamsulosin HCl 0.4 mg [Flomax 0.4 MG] 0.4 mg PO BID 11/26/22 [History Confirmed 08/26/24] Vibegron [Gemtesa] 75 mg PO DAILY 11/26/22 [History Confirmed 08/26/24] Potassium Chloride Tab* [Klor Con] 10 meq PO DINNER 01/13/24 [History Confirmed 08/26/24] Potassium Chloride Tab* [Klor Con] 10 meq PO LUNCH 01/13/24 [History Confirmed 08/26/24] Aspirin EC 81 mg [Ecotrin 81 mg] 81 mg PO DAILY 08/26/24 [History Confirmed 08/26/24] Cholecalciferol (Vitamin D3) [Vitamin D] 2,000 unit PO UD 08/26/24 [History Confirmed 08/26/24] Doxazosin Mesylate 2 mg [Cardura 2 mg] 1 tab PO QHS 08/26/24 [History Confirmed 08/26/24] Famotidine 20 mg [Pepcid 20 MG] 40 mg PO BID 08/26/24 [History Confirmed 08/26/24] Linaclotide [Linzess] 1 cap PO UD 08/26/24 [History Confirmed 08/26/24] Methenamine/Sodium Salicylate [Azo Urinary Tract Defense Tab] 2 tab PO DAILY 08/26/24 [History Confirmed 08/26/24] Sennosides/Docusate Sodium [Stool Softener-Stim Lax Tablet] 1 tab PO QID 08/26/24 [History Confirmed 08/26/24] Allergies/Adverse Reactions: Allergies Allergy/AdvReac Type Severity Reaction Status Date / Time hydromorphone [From Dilaudid] Allergy Severe Difficulty Verified 08/26/24 00:01 Breathing meclofenamic acid Allergy Severe Skin Verified 08/26/24 00:01 [From Meclomen] Irritation morphine Allergy Severe Difficulty Verified 08/26/24 00:01 Breathing Sulfa (Sulfonamide Allergy Severe Verified 08/26/24 00:01 Antibiotics) ciprofloxacin [From Cipro] Allergy Intermediate Itching Verified 08/26/24 00:01 diphenhydramine Allergy Intermediate Swelling Verified 08/26/24 00:01 [From Benadryl] of Tongue and Lips nitrofurantoin Allergy Intermediate severe Verified 08/26/24 00:01 vomiting and shakes - Past Medical History Past Medical History: Yes Neurological History: No Pertinent History ENT History: Cataracts Cardiac History: Hypertension Respiratory History: No Pertinent History, CHF Endocrine Medical History: Diabetes Type II Musculoskelatal History: Arthritis, Fibromyalgia GI Medical History: Irritable Bowel History: Renal Disease, Other Pyscho-Social History: Anxiety, Depression Reproductive Disorders: Breast Cancer Comment: ADMITTED FOR 11/26 FOR PNA,01/04 FOR BLOOD CLOTS AND ANTIBIOTICS FOR RESIDUAL PNA. LUMBAR SX TLIF MAR 2020, CKD STAGE 4, CONGESTIVE HEART FAILURE, TAVR 2016, DM, LUPUS, IBS, GERD, ANXIETY, DEPRESSION, BIPOLAR. BROKEN RLE. SX: INSTESTINAL BYPASS AND REVERSAL, LEFT MASTECTOMY, TAVER, LUMBAR LAMINECTOMY 2016, STEROID INJECTIONS. - Past Surgical History Past Surgical History: Yes Neuro Surgical History: No Pertinent History Cardiac History: Other Respiratory Surgery: No Pertinent History GI Surgical History: Appendectomy, Cholecystectomy Genitourinary Surgical Hx: No Pertinent History Musculskeletal Surgical Hx: No Pertinent History Female Surgical History: Hysterectomy, Section, Tubal Ligation, Lumpectomy Other Surgical History: intestinal bypass and then reverse,sinus surgery times 2 roof/mouth then sinus surgery nose,left foot planters wart,right breast tumor,rt ankle/right leg sx after fx,left breast mastectomy with sentinel removed,6 marek steroid inj,t.a.v.r.-transcatheter aortic value replacement,lumbar laminectomy, steroid injections in back multiple times a year Significant Family History: no pertinent family hx - Social History Smoking Status: Never smoker Exposure to second hand smoke: No Alcohol: None Drug Use: none - Social Determinants of Health Will the patient participate in the screening: Yes Do you worry about a steady place to live?: No Do you have any problems with any of the following?: No known problems In the past 12 months,have you had to go without utilities?: No Have you or anyone in your house had to go without enough: No Transportation Issues: No Has anyone in your support network made you feel unsafe?: No Does the patient want assistance with any of the above?: No - Physical Exam Vital Signs: Vital Signs - 24 hr Temp Pulse Resp BP BP Pulse Ox 08/26/24 08:29 98.5 F 85 20 210/89 93 L 08/26/24 07:47 84 20 156/135 98 08/26/24 07:31 85 22 164/112 91 L 08/26/24 07:16 86 15 153/70 95 08/26/24 07:00 87 19 172/112 97 08/26/24 06:45 84 11 L 148/93 97 08/26/24 06:30 84 14 187/78 96 08/26/24 06:16 81 9 L 197/76 97 08/26/24 06:00 84 12 157/88 95 08/26/24 05:46 86 15 190/78 95 08/26/24 05:30 84 7 L 165/105 94 L 08/26/24 05:15 84 10 L 199/90 97 08/26/24 05:13 86 13 195/99 97 08/26/24 05:10 87 19 96 08/26/24 05:02 87 13 96 08/26/24 04:45 88 16 164/114 89 L 08/26/24 04:30 87 15 181/88 97 08/26/24 04:16 88 15 186/87 95 08/26/24 04:00 89 16 200/80 95 08/26/24 03:45 87 10 L 211/93 96 08/26/24 03:30 88 12 201/94 95 08/26/24 03:15 88 12 212/99 96 08/26/24 03:00 88 12 220/83 96 08/26/24 02:45 88 12 202/98 95 08/26/24 02:30 88 13 94 L 08/26/24 02:17 87 13 262/183 96 08/26/24 02:00 87 12 202/109 96 08/26/24 01:49 116 H 22 210/112 95 08/26/24 01:46 90 16 231/88 08/26/24 01:30 90 17 221/99 96 08/26/24 01:16 87 16 220/110 08/26/24 01:10 86 17 200/108 95 08/26/24 01:09 86 15 96 08/26/24 01:00 87 14 08/26/24 00:50 84 18 95 08/26/24 00:47 83 17 96 08/26/24 00:32 96 08/26/24 00:31 85 17 195/164 96 08/26/24 00:02 86 17 206/144 93 L 08/25/24 23:34 99.2 F 77 18 254/89 96 General Appearance: no apparent distress, alert, obese Neurologic Exam: alert, cooperative, normal mood/affect, sensation nml, disoriented, confusion, motor weakness, 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, other (+ dysmetria), No motor deficits Eye Exam: PERRL/EOMI, eyes nml inspection Ears, Nose, Throat Exam: normal ENT inspection, TMs normal, pharynx normal, moist mucous membranes Neck Exam: normal inspection, non-tender, supple, full range of motion Respiratory Exam: normal breath sounds, lungs clear, No respiratory distress Cardiovascular Exam: regular rate/rhythm, normal heart sounds, normal peripheral pulses Gastrointestinal/Abdomen Exam: soft, normal bowel sounds, No tenderness, No mass Back Exam: normal inspection, normal range of motion, No CVA tenderness, No vertebral tenderness Extremity Exam: normal inspection, normal range of motion, pelvis stable Skin Exam: normal color, warm, dry, No rash Lymphatic Exam: No adenopathy Results - Labs Lab/Micro Results: Lab Results-Last 24 Hours 08/26/24 08/26/24 08/26/24 Range/Units 00:40 00:40 01:52 WBC 8.5 (3.98-10.04) x10^3/uL RBC 3.58 L (3.93-5.22) x10^6/uL Hgb 11.2 (11.2-15.7) g/dL Hct 32.3 L (34.1-44.9) % MCV 90.2 (79.4-94.8) fL MCH 31.3 (25.6-32.2) pg MCHC 34.7 (32.2-35.5) g/dL RDW 14.2 (11.7-14.4) % Plt Count 161 L (182-369) x10^3/uL MPV 10.5 (9.4-12.3) fL Gran % 62.2 (34.0-71.1) % Immature Gran % (Auto) 0.2 (0.001-0.429) % Nucleat RBC Rel Count 0.0 (0.00-0.2) % Eos # (Auto) 0.33 (0.04-0.36) x10^3/uL Immature Gran # (Auto) 0.02 (0.001-0.031) x10^3u/L Absolute Lymphs (auto) 2.08 (1.18-3.74) x10^3/uL Absolute Monos (auto) 0.74 (0.24-0.86) x10^3/uL Absolute Nucleated RBC 0.00 (0.00-0.012) x10^3u/L Lymphocytes % 24.4 (19.3-51.7) % Monocytes % 8.7 (4.7-12.5) % Eosinophils % 3.9 (0.7-5.8) % Basophils % 0.6 (0.1-1.2) % Absolute Granulocytes 5.31 (1.56-6.13) x10^3/uL Basophils # 0.05 (0.01-0.08) x10^3/uL Sodium 135 (135-145) mmol/L Potassium 4.6 (3.5-5.1) mmol/L Chloride 96 L (98-107) mmol/L Carbon Dioxide 28 (22-30) mmol/L Anion Gap 14.7 (5-15) MEQ/L BUN 33 H (7-17) mg/dL Creatinine 2.08 H (0.52-1.04) mg/dL Estimated GFR 24.4 ML/MIN Glucose 135 H (74-106) mg/dL Calcium 9.2 (8.4-10.2) mg/dL Total Bilirubin 0.60 (0.2-1.3) mg/dL AST 29 (14-36) U/L ALT 12 (0-35) U/L Alkaline Phosphatase 109 (38-126) U/L Serum Total Protein 7.0 (6.3-8.2) g/dL Albumin 4.2 (3.5-5.0) g/dL Urine Color Yellow (Yellow) Urine Appearance Clear (Clear) Urine pH 7.0 (4.6-8.0) Ur Specific [place] 1.010 (1.005-1.030) Urine Protein 100 A (Negative) Urine Glucose (UA) Negative (Negative) mg/dL Urine Ketones Negative (Negative) Urine Blood Negative (Negative) Urine Nitrite Negative (Negative) Urine Bilirubin Negative (Negative) Urine Urobilinogen 0.2 (0.2) mg/dL Ur Leukocyte Esterase Negative (Negative) U Hyaline Cast (Auto) NONE SEEN (0-2) /LPF Urine Microscopic RBC 0-2 (0-5) /HPF Urine Microscopic WBC 3-5 (0-5) /HPF Ur Epithelial Cells None Seen (None Seen) /HPF Urine Bacteria None Seen (None Seen) /HPF Urine Culture Reflexed NO (NO) Urine Opiates Level (NEGATIVE) Ur Methadone (NEGATIVE) Urine Barbiturates (NEGATIVE) Ur Phencyclidine (PCP) (NEGATIVE) Urine Amphetamine (NEGATIVE) U Benzodiazepine Level (NEGATIVE) Urine Cocaine (NEGATIVE) Urine Marijuana (THC) (NEGATIVE) 08/26/24 Range/Units 01:52 WBC (3.98-10.04) x10^3/uL RBC (3.93-5.22) x10^6/uL Hgb (11.2-15.7) g/dL Hct (34.1-44.9) % MCV (79.4-94.8) fL MCH (25.6-32.2) pg MCHC (32.2-35.5) g/dL RDW (11.7-14.4) % Plt Count (182-369) x10^3/uL MPV (9.4-12.3) fL Gran % (34.0-71.1) % Immature Gran % (Auto) (0.001-0.429) % Nucleat RBC Rel Count (0.00-0.2) % Eos # (Auto) (0.04-0.36) x10^3/uL Immature Gran # (Auto) (0.001-0.031) x10^3u/L Absolute Lymphs (auto) (1.18-3.74) x10^3/uL Absolute Monos (auto) (0.24-0.86) x10^3/uL Absolute Nucleated RBC (0.00-0.012) x10^3u/L Lymphocytes % (19.3-51.7) % Monocytes % (4.7-12.5) % Eosinophils % (0.7-5.8) % Basophils % (0.1-1.2) % Absolute Granulocytes (1.56-6.13) x10^3/uL Basophils # (0.01-0.08) x10^3/uL Sodium (135-145) mmol/L Potassium (3.5-5.1) mmol/L Chloride (98-107) mmol/L Carbon Dioxide (22-30) mmol/L Anion Gap (5-15) MEQ/L BUN (7-17) mg/dL Creatinine (0.52-1.04) mg/dL Estimated GFR ML/MIN Glucose (74-106) mg/dL Calcium (8.4-10.2) mg/dL Total Bilirubin (0.2-1.3) mg/dL AST (14-36) U/L ALT (0-35) U/L Alkaline Phosphatase (38-126) U/L Serum Total Protein (6.3-8.2) g/dL Albumin (3.5-5.0) g/dL Urine Color (Yellow) Urine Appearance (Clear) Urine pH (4.6-8.0) Ur Specific [place] (1.005-1.030) Urine Protein (Negative) Urine Glucose (UA) (Negative) mg/dL Urine Ketones (Negative) Urine Blood (Negative) Urine Nitrite (Negative) Urine Bilirubin (Negative) Urine Urobilinogen (0.2) mg/dL Ur Leukocyte Esterase (Negative) U Hyaline Cast (Auto) (0-2) /LPF Urine Microscopic RBC (0-5) /HPF Urine Microscopic WBC (0-5) /HPF Ur Epithelial Cells (None Seen) /HPF Urine Bacteria (None Seen) /HPF Urine Culture Reflexed (NO) Urine Opiates Level NEGATIVE (NEGATIVE) Ur Methadone NEGATIVE (NEGATIVE) Urine Barbiturates NEGATIVE (NEGATIVE) Ur Phencyclidine (PCP) NEGATIVE (NEGATIVE) Urine Amphetamine NEGATIVE (NEGATIVE) U Benzodiazepine Level NEGATIVE (NEGATIVE) Urine Cocaine NEGATIVE (NEGATIVE) Urine Marijuana (THC) NEGATIVE (NEGATIVE) - Radiology Impressions Radiology Exams & Impressions: Radiology Procedures Category Date Time Status HEAD WITHOUT CONTRAST [CT] Stat Exams 08/26/24 00:06 Completed MRI BRAIN W/O CONTRAST [MRI] Stat Exams 08/26/24 09:08 Ordered - Other Procedures and Tests Respiratory Therapy 08/26/24 08:15 EEG 41-60 Minutes (Normal) ONCE Assessment/Plan (1) Altered mental status Current Visit: Yes Status: Acute Assessment & Plan: - CT head negative - MRI Brain - EEG - neurology consult: note reviewed and agree with plan of care - lipid profile, TSH, ammonia level - PT/OT/ ST Code(s): R41.82 - ALTERED MENTAL STATUS, UNSPECIFIED (2) Hypertension Current Visit: Yes Status: Acute Qualifiers: Hypertension type: primary hypertension Qualified Code(s): I10 - Essential (primary) hypertension Assessment & Plan: - resume home meds - consider PRN meds after MRI results back - trend Code(s): I10 - ESSENTIAL (PRIMARY) HYPERTENSION (3) Acute on chronic kidney failure Current Visit: No Status: Acute Qualifiers: Acute renal failure type: unspecified Chronic kidney disease stage: stage 3 (moderate) Qualified Code(s): N17.9 - Acute kidney failure, unspecified; N18.3 - Chronic kidney disease, stage 3 (moderate) Assessment & Plan: - Creat 2.08- trend - baseline Creat 1.74 - NS@ 50ml/hr Code(s): N17.9 - ACUTE KIDNEY FAILURE, UNSPECIFIED; N18.9 - CHRONIC KIDNEY DISEASE, UNSPECIFIED (4) Type 2 diabetes mellitus Current Visit: No Status: Chronic 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 per neurology note - neuro checks Q 4 Code(s): G93.40 - ENCEPHALOPATHY, UNSPECIFIED (6) Obesity (BMI 30.0-34.9) Current Visit: Yes Status: Chronic Assessment & Plan: - advised ADA diet and exercise control VTE: Plavix/ SCD's PPI: Protonix Next of KIN: Code status: Full D/C plan: 2-3 days Code(s): E66.811 - OBESITY, CLASS 1 <PEGGY WOLFE - Last Filed: 08/26/24 22:07> History of Present Illness - Chief Complaint History of Present Illness: is a 74 year old female. - Physical Exam Vital Signs: Vital Signs - 24 hr Temp Pulse Resp BP BP Pulse Ox 08/26/24 20:00 98.2 F 83 18 182/76 95 08/26/24 16:00 97.5 F 82 20 205/84 94 L 08/26/24 12:00 80 18 181/76 98 08/26/24 08:29 98.5 F 85 20 210/89 93 L 08/26/24 07:47 84 20 156/135 98 08/26/24 07:31 85 22 164/112 91 L 08/26/24 07:16 86 15 153/70 95 08/26/24 07:00 87 19 172/112 97 08/26/24 06:45 84 11 L 148/93 97 08/26/24 06:30 84 14 187/78 96 08/26/24 06:16 81 9 L 197/76 97 08/26/24 06:00 84 12 157/88 95 08/26/24 05:46 86 15 190/78 95 08/26/24 05:30 84 7 L 165/105 94 L 08/26/24 05:15 84 10 L 199/90 97 08/26/24 05:13 86 13 195/99 97 08/26/24 05:10 87 19 96 08/26/24 05:02 87 13 96 08/26/24 04:45 88 16 164/114 89 L 08/26/24 04:30 87 15 181/88 97 08/26/24 04:16 88 15 186/87 95 08/26/24 04:00 89 16 200/80 95 08/26/24 03:45 87 10 L 211/93 96 08/26/24 03:30 88 12 201/94 95 08/26/24 03:15 88 12 212/99 96 08/26/24 03:00 88 12 220/83 96 08/26/24 02:45 88 12 202/98 95 08/26/24 02:30 88 13 94 L 08/26/24 02:17 87 13 262/183 96 08/26/24 02:00 87 12 202/109 96 08/26/24 01:49 116 H 22 210/112 95 08/26/24 01:46 90 16 231/88 08/26/24 01:30 90 17 221/99 96 08/26/24 01:16 87 16 220/110 02 01:10 86 17 200/108 95 08/26/24 01:09 86 15 96 08/26/24 01:00 87 14 08/26/24 00:50 84 18 95 08/26/24 00:47 83 17 96 08/26/24 00:32 96 08/26/24 00:31 85 17 195/164 96 08/26/24 00:02 86 17 206/144 93 L 08/25/24 23:34 99.2 F 77 18 254/89 96 Results - Labs Lab/Micro Results: Lab Results-Last 24 Hours 08/26/24 08/26/24 08/26/24 Range/Units 00:40 00:40 01:52 WBC 8.5 (3.98-10.04) x10^3/uL RBC 3.58 L (3.93-5.22) x10^6/uL Hgb 11.2 (11.2-15.7) g/dL Hct 32.3 L (34.1-44.9) % MCV 90.2 (79.4-94.8) fL MCH 31.3 (25.6-32.2) pg MCHC 34.7 (32.2-35.5) g/dL RDW 14.2 (11.7-14.4) % Plt Count 161 L (182-369) x10^3/uL MPV 10.5 (9.4-12.3) fL Gran % 62.2 (34.0-71.1) % Immature Gran % (Auto) 0.2 (0.001-0.429) % Nucleat RBC Rel Count 0.0 (0.00-0.2) % Eos # (Auto) 0.33 (0.04-0.36) x10^3/uL Immature Gran # (Auto) 0.02 (0.001-0.031) x10^3u/L Absolute Lymphs (auto) 2.08 (1.18-3.74) x10^3/uL Absolute Monos (auto) 0.74 (0.24-0.86) x10^3/uL Absolute Nucleated RBC 0.00 (0.00-0.012) x10^3u/L Lymphocytes % 24.4 (19.3-51.7) % Monocytes % 8.7 (4.7-12.5) % Eosinophils % 3.9 (0.7-5.8) % Basophils % 0.6 (0.1-1.2) % Absolute Granulocytes 5.31 (1.56-6.13) x10^3/uL Basophils # 0.05 (0.01-0.08) x10^3/uL Sodium 135 (135-145) mmol/L Potassium 4.6 (3.5-5.1) mmol/L Chloride 96 L (98-107) mmol/L Carbon Dioxide 28 (22-30) mmol/L Anion Gap 14.7 (5-15) MEQ/L BUN 33 H (7-17) mg/dL Creatinine 2.08 H (0.52-1.04) mg/dL Estimated GFR 24.4 ML/MIN Glucose 135 H (74-106) mg/dL POC Glucometer (74 to 106) mg/dL Hemoglobin A1c (4.5-6.0) % Calcium 9.2 (8.4-10.2) mg/dL Total Bilirubin 0.60 (0.2-1.3) mg/dL AST 29 (14-36) U/L ALT 12 (0-35) U/L Alkaline Phosphatase 109 (38-126) U/L Ammonia (9-30) umol/L Serum Total Protein 7.0 (6.3-8.2) g/dL Albumin 4.2 (3.5-5.0) g/dL Triglycerides (30-150) mg/dL Cholesterol (50-200) mg/dL LDL Cholesterol (30-100) mg/dL HDL Cholesterol (40-60) mg/dL Heart Disease Risk Ratio TSH 3rd Generation (0.470-4.680) mIU/L Urine Color Yellow (Yellow) Urine Appearance Clear (Clear) Urine pH 7.0 (4.6-8.0) Ur Specific [place] 1.010 (1.005-1.030) Urine Protein 100 A (Negative) Urine Glucose (UA) Negative (Negative) mg/dL Urine Ketones Negative (Negative) Urine Blood Negative (Negative) Urine Nitrite Negative (Negative) Urine Bilirubin Negative (Negative) Urine Urobilinogen 0.2 (0.2) mg/dL Ur Leukocyte Esterase Negative (Negative) U Hyaline Cast (Auto) NONE SEEN (0-2) /LPF Urine Microscopic RBC 0-2 (0-5) /HPF Urine Microscopic WBC 3-5 (0-5) /HPF Ur Epithelial Cells None Seen (None Seen) /HPF Urine Bacteria None Seen (None Seen) /HPF Urine Culture Reflexed NO (NO) Urine Opiates Level (NEGATIVE) Ur Methadone (NEGATIVE) Urine Barbiturates (NEGATIVE) Ur Phencyclidine (PCP) (NEGATIVE) Urine Amphetamine (NEGATIVE) U Benzodiazepine Level (NEGATIVE) Urine Cocaine (NEGATIVE) Urine Marijuana (THC) (NEGATIVE) 08/26/24 08/26/24 08/26/24 Range/Units 01:52 05:00 09:44 WBC (3.98-10.04) x10^3/uL RBC (3.93-5.22) x10^6/uL Hgb (11.2-15.7) g/dL Hct (34.1-44.9) % MCV (79.4-94.8) fL MCH (25.6-32.2) pg MCHC (32.2-35.5) g/dL RDW (11.7-14.4) % Plt Count (182-369) x10^3/uL MPV (9.4-12.3) fL Gran % (34.0-71.1) % Immature Gran % (Auto) (0.001-0.429) % Nucleat RBC Rel Count (0.00-0.2) % Eos # (Auto) (0.04-0.36) x10^3/uL Immature Gran # (Auto) (0.001-0.031) x10^3u/L Absolute Lymphs (auto) (1.18-3.74) x10^3/uL Absolute Monos (auto) (0.24-0.86) x10^3/uL Absolute Nucleated RBC (0.00-0.012) x10^3u/L Lymphocytes % (19.3-51.7) % Monocytes % (4.7-12.5) % Eosinophils % (0.7-5.8) % Basophils % (0.1-1.2) % Absolute Granulocytes (1.56-6.13) x10^3/uL Basophils # (0.01-0.08) x10^3/uL Sodium (135-145) mmol/L Potassium (3.5-5.1) mmol/L Chloride (98-107) mmol/L Carbon Dioxide (22-30) mmol/L Anion Gap (5-15) MEQ/L BUN (7-17) mg/dL Creatinine (0.52-1.04) mg/dL Estimated GFR ML/MIN Glucose (74-106) mg/dL POC Glucometer (74 to 106) mg/dL Hemoglobin A1c (4.5-6.0) % Calcium (8.4-10.2) mg/dL Total Bilirubin (0.2-1.3) mg/dL AST (14-36) U/L ALT (0-35) U/L Alkaline Phosphatase (38-126) U/L Ammonia < 9 L (9-30) umol/L Serum Total Protein (6.3-8.2) g/dL Albumin (3.5-5.0) g/dL Triglycerides 160 H (30-150) mg/dL Cholesterol 143 (50-200) mg/dL LDL Cholesterol 56 (30-100) mg/dL HDL Cholesterol 51 (40-60) mg/dL Heart Disease Risk Ratio 3.0 TSH 3rd Generation 4.470 (0.470-4.680) mIU/L Urine Color (Yellow) Urine Appearance (Clear) Urine pH (4.6-8.0) Ur Specific [place] (1.005-1.030) Urine Protein (Negative) Urine Glucose (UA) (Negative) mg/dL Urine Ketones (Negative) Urine Blood (Negative) Urine Nitrite (Negative) Urine Bilirubin (Negative) Urine Urobilinogen (0.2) mg/dL Ur Leukocyte Esterase (Negative) U Hyaline Cast (Auto) (0-2) /LPF Urine Microscopic RBC (0-5) /HPF Urine Microscopic WBC (0-5) /HPF Ur Epithelial Cells (None Seen) /HPF Urine Bacteria (None Seen) /HPF Urine Culture Reflexed (NO) Urine Opiates Level NEGATIVE (NEGATIVE) Ur Methadone NEGATIVE (NEGATIVE) Urine Barbiturates NEGATIVE (NEGATIVE) Ur Phencyclidine (PCP) NEGATIVE (NEGATIVE) Urine Amphetamine NEGATIVE (NEGATIVE) U Benzodiazepine Level NEGATIVE (NEGATIVE) Urine Cocaine NEGATIVE (NEGATIVE) Urine Marijuana (THC) NEGATIVE (NEGATIVE) 08/26/24 08/26/24 08/26/24 Range/Units 09:46 13:32 21:43 WBC (3.98-10.04) x10^3/uL RBC (3.93-5.22) x10^6/uL Hgb (11.2-15.7) g/dL Hct (34.1-44.9) % MCV (79.4-94.8) fL MCH (25.6-32.2) pg MCHC (32.2-35.5) g/dL RDW (11.7-14.4) % Plt Count (182-369) x10^3/uL MPV (9.4-12.3) fL Gran % (34.0-71.1) % Immature Gran % (Auto) (0.001-0.429) % Nucleat RBC Rel Count (0.00-0.2) % Eos # (Auto) (0.04-0.36) x10^3/uL Immature Gran # (Auto) (0.001-0.031) x10^3u/L Absolute Lymphs (auto) (1.18-3.74) x10^3/uL Absolute Monos (auto) (0.24-0.86) x10^3/uL Absolute Nucleated RBC (0.00-0.012) x10^3u/L Lymphocytes % (19.3-51.7) % Monocytes % (4.7-12.5) % Eosinophils % (0.7-5.8) % Basophils % (0.1-1.2) % Absolute Granulocytes (1.56-6.13) x10^3/uL Basophils # (0.01-0.08) x10^3/uL Sodium (135-145) mmol/L Potassium (3.5-5.1) mmol/L Chloride (98-107) mmol/L Carbon Dioxide (22-30) mmol/L Anion Gap (5-15) MEQ/L BUN (7-17) mg/dL Creatinine (0.52-1.04) mg/dL Estimated GFR ML/MIN Glucose (74-106) mg/dL POC Glucometer 160 H 156 H (74 to 106) mg/dL Hemoglobin A1c 6.16 H (4.5-6.0) % Calcium (8.4-10.2) mg/dL Total Bilirubin (0.2-1.3) mg/dL AST (14-36) U/L ALT (0-35) U/L Alkaline Phosphatase (38-126) U/L Ammonia (9-30) umol/L Serum Total Protein (6.3-8.2) g/dL Albumin (3.5-5.0) g/dL Triglycerides (30-150) mg/dL Cholesterol (50-200) mg/dL LDL Cholesterol (30-100) mg/dL HDL Cholesterol (40-60) mg/dL Heart Disease Risk Ratio TSH 3rd Generation (0.470-4.680) mIU/L Urine Color (Yellow) Urine Appearance (Clear) Urine pH (4.6-8.0) Ur Specific [place] (1.005-1.030) Urine Protein (Negative) Urine Glucose (UA) (Negative) mg/dL Urine Ketones (Negative) Urine Blood (Negative) Urine Nitrite (Negative) Urine Bilirubin (Negative) Urine Urobilinogen (0.2) mg/dL Ur Leukocyte Esterase (Negative) U Hyaline Cast (Auto) (0-2) /LPF Urine Microscopic RBC (0-5) /HPF Urine Microscopic WBC (0-5) /HPF Ur Epithelial Cells (None Seen) /HPF Urine Bacteria (None Seen) /HPF Urine Culture Reflexed (NO) Urine Opiates Level (NEGATIVE) Ur Methadone (NEGATIVE) Urine Barbiturates (NEGATIVE) Ur Phencyclidine (PCP) (NEGATIVE) Urine Amphetamine (NEGATIVE) U Benzodiazepine Level (NEGATIVE) Urine Cocaine (NEGATIVE) Urine Marijuana (THC) (NEGATIVE) Accuchecks Date 08/26/24 - Radiology Impressions Radiology Exams & Impressions: Radiology Procedures Category Date Time Status HEAD WITHOUT CONTRAST [CT] Stat Exams 08/26/24 00:06 Completed MRI BRAIN W/O CONTRAST [MRI] Stat Exams 08/26/24 09:08 Completed KEVIN Encounter - KEVIN Encounter Attestation KEVIN Encounter Attestation: "GeenalysKORIN Llamas andhavediscussed pertinent aspects of their care with Adonis Guthrie and agree with the history, physical exam (any modifications based on my personal exam will be noted below), assessment, and plan as outlined in original note. Please see immediately below for my summary of findings and additional assessment and plan along with any meaningful corrections/explanations to the Subjective/Objective portions of the KEVIN note will be noted." My portion of the encounter took place via telemedicine. 74 y/o F with h/o CVA, presenting with confusion for few days without any focal deficits. Found to have very elevated SBP of 254 on admission. Neuro consulted, EEG pending, MRI shows prior strokes but no acute stroke. Will aim for gentle reduction of blood pressure, approx 25% in the first 24 hours. If all work up negative, symptoms likely due to hypertensive encephalopathy. at the bedside confirms no med doses were missed.
[2024-08-26] MEDS ORDERED: METHENAMINE PO SCH (10:00)
[2024-08-26] MEDS ORDERED: NON-FORMULARY ITEM (Vibegron [Gemtesa] 75 MG Tablet) PO SCH (10:00)
[2024-08-26] MEDS ORDERED: MEDICATION INTERVENTION MC SCH ×4 (10:00)
[2024-08-26] MEDS ORDERED: [UNRECOGNIZED DRUG - OTHER] PO SCH (10:00)
[2024-08-26] MEDS ORDERED: NON-FORMULARY ITEM (Linaclotide [Linzess] 72 MCG Capsule) PO SCH (10:00)
[2024-08-26 10:38] LABS: TSH, 3RD Generation 4.47 mIU/L (0.470-4.680)
--- NOTE | 2024-08-26 12:51 | XRAY ---
Indication: CVA. Negative CT head exam. Sagittal, coronal, and axial MRI brain performed without contrast using T1, T2, FLAIR, diffusion, and ADC sequences. Comparison: None Several images/sequences slightly degraded by motion artifact. Age-appropriate global atrophy and minimal periventricular degenerative micro-ischemia signal. Inferior right cerebellum demonstrates 2 subcentimeter foci of remote infarcts. Remote lacunar infarct right brain stem. No acute intracranial hemorrhage, abnormal extra-axial fluid question, or mass effect. Diffusion images negative for restricted signal. Fourth ventricle is midline without hydrocephalus. 7/8 cranial nerve complex bilaterally symmetric. Normal flow-void signal within the major intercerebral circulation. Normal-appearing craniocervical junction and sella turcica. Paranasal sinuses are clear. Impression: 1. Motion artifact. 2. Atrophy and degenerative micro-ischemia within normal limits. 3. Subcentimeter remote infarcts right cerebellum and remote lacunar infarct right brain stem. 4. No gross acute intracranial abnormalities or evidence for evolving large vessel territorial stroke. 5. Findings are concordant with CT head exam.
[2024-08-26] MEDS ORDERED: APRESOLINE 20 MG/ML INJ IV PRN (12:52)
[2024-08-26] MEDS: Vitamin B-12 500 MCG PO SCH (14:52)
[2024-08-26] MEDS: Klor Con PO SCH ×2 (14:53→16:50)
[2024-08-26] MEDS: PLAVIX Tablet PO SCH (14:53)
[2024-08-26] MEDS: Imdur 30 MG PO SCH (14:54)
[2024-08-26] MEDS: Senokot-S Tablet PO SCH (14:54)
[2024-08-26] MEDS: NORVASC 5 MG PO SCH (14:54)
[2024-08-26] MEDS: THERAGRAN MULTIVITAMIN PO SCH (14:55)
[2024-08-26] MEDS: BUMEX 1 MG PO SCH (14:55)
[2024-08-26] MEDS: Cozaar 50 MG PO SCH (14:55)
[2024-08-26] MEDS: ZYLOPRIM 300 MG PO SCH (14:55)
[2024-08-26] MEDS: Protonix 20MG Tablet PO SCH (14:55)
[2024-08-26] MEDS: ECOTRIN 81 MG PO SCH (14:55)
[2024-08-26] MEDS: Singulair 10 MG PO SCH (14:56)
[2024-08-26] MEDS: Lantus Insulin SQ SCH (14:56)
[2024-08-26] MEDS: zyPREXA 5MG TABLET PO SCH (15:02)
[2024-08-26] MEDS: NEURONTIN PO SCH (15:02)
[2024-08-26] MEDS: Pepcid 20 MG PO SCH (15:03)
[2024-08-26] MEDS: Toprol Xl 50 MG PO SCH (15:03)
[2024-08-26] MEDS: Flomax 0.4 MG PO SCH (15:13)
[2024-08-26] MEDS: PATIENT OWN MEDICATION PO SCH ×4 (15:14→18:44)
[2024-08-26] MEDS: Cymbalta 30 MG Capsule PO SCH (15:33)
[2024-08-26] MEDS: HUMALOG SQ PRN (16:50)
[2024-08-26] MEDS ORDERED: LOPRESSOR INJECTION IV PRN (18:41)
[2024-08-26] MEDS: NORVASC 5 MG PO ONE (18:57)
[2024-08-26] MEDS: DESYREL 50 MG PO SCH (22:34)
[2024-08-26] MEDS: CARDURA 2 MG PO SCH (22:34)
[2024-08-27 05:02] LABS: Hematocrit 28.2 % (34.1-44.9); Hemoglobin 9.5 g/dL (11.2-15.7); Mean Corpuscular Hemoglobin 30.6 pg (25.6-32.2); Mean Corpuscular Hgb Concent. 33.7 g/dL (32.2-35.5); Mean Platelet Volume 10.3 fL (9.4-12.3); Platelet Count 151 x10^3/uL (182-369); Red Cell Distribution Width 14.4 % (11.7-14.4); White Blood Count 8.4 x10^3/uL (3.98-10.04)
[2024-08-27 05:34] LABS: ALBUMIN 3.6 g/dL (3.5-5.0); ANION GAP 9.8 MEQ/L (5-15); BILIRUBIN,TOTAL 0.7 mg/dL (0.2-1.3); Calcium 8.8 mg/dL (8.4-10.2); Creatinine 1 1.87 mg/dL (0.52-1.04); EST GLOMERULAR FILTRATION RATE 27.7 ML/MIN; Potassium 4.1 mmol/L (3.5-5.1); Total Protein 6.2 g/dL (6.3-8.2)
[2024-08-27] MEDS: NORVASC 5 MG PO SCH (09:10)
[2024-08-27] MEDS: Klor Con PO SCH (09:12)
--- NOTE | 2024-08-27 10:50 | PCM.NOTE ---
Date and Time: 08/27/24 1042 Subjective Assessment: 08/26/24 is a 74 year old female with PMHX of hypertension, CHF, diabetes, fibromyalgia, chronic renal disease, history of gastroesophageal reflux disease, bipolar disorder and depression. Patient is on Plavix secondary to history of blood clots. She was brought into the emergency department by the paramedics secondary to altered mental status that began 3 days ago and has been worsening since that time. There is no known head injury. Patient was able to tell me she has no pain anywhere. She is oriented to person and place, not time, + dysmetria. CT head negative. MRI brain and EEG ordered for further eval. Neurology consulted in ER and note reviewed. PT/ST/OT eval. 08/27/24 The patient is resting in bed, alert and awake, but oriented only to person. Her neurological exam today is otherwise normal, except for confusion regarding orientation and noted weakness. She requires heavy assistance from two staff members to use the restroom. An MRI performed yesterday showed no acute findings, but an EEG was abnormal, prompting a reconsultation with Tele- neurology for further evaluation. Her blood pressure remains elevated, so amlodipine was increased to 10 mg daily, and she did not require any PRN blood pressure medications overnight. Intravenous fluids were discontinued as her kidney function has returned to near baseline. There are concerns regarding her weakness and ability to manage at home, with the patients spouse expressing difficulty in providing adequate care. As a result, case management will discuss potential rehabilitation placement with the patient and her spouse. - Review of Systems Constitutional: Weakness, No Fever, No Chills Eyes: No Symptoms Ears, Nose, & Throat: No Symptoms Respiratory: No Cough, No Short Of Breath Cardiac: No Chest Pain, No Edema, No Syncope Abdominal/Gastrointestinal: No Abdominal Pain, No Nausea, No Vomiting, No Diarrhea Genitourinary Symptoms: No Dysuria Musculoskeletal: No Back Pain, No Neck Pain Skin: No Rash Neurological: Other (Confusion), No Dizziness, No Focal Weakness, No Sensory Changes Psychological: No Symptoms Endocrine: No Symptoms Hematologic/Lymphatic: No Symptoms Immunological/Allergic: No Symptoms Objective Exam General Appearance: no apparent distress, alert, obese Neurologic Exam: alert, cooperative, cia agent II-XII nml as tested, normal mood/affect, nml cerebellar function, sensation nml, confusion, motor weakness, No motor deficits Skin Exam: warm, dry, pale Eye Exam: PERRL, EOMI, eyes nml inspection Ears, Nose, Throat Exam: normal ENT inspection, pharynx normal, moist mucous membranes Neck Exam: normal inspection, non-tender, supple, full range of motion Respiratory Exam: normal breath sounds, lungs clear, No respiratory distress Cardiovascular Exam: regular rate/rhythm, normal heart sounds Gastrointestinal/Abdomen Exam: soft, No tenderness, No mass Extremity Exam: normal inspection, normal range of motion Back Exam: normal inspection, normal range of motion, No CVA tenderness, No vertebral tenderness Pelvic Exam: deferred Rectal Exam: deferred Objective Data Vital Signs: Vital Signs - 24 hr Temp Pulse Resp BP Pulse Ox 08/27/24 08:00 96.9 F 83 22 210/91 97 08/27/24 04:00 97.7 F 77 20 180/74 94 L 08/26/24 23:56 97.7 F 77 20 180/74 94 L 08/26/24 20:00 98.2 F 83 18 182/76 95 08/26/24 16:00 97.5 F 82 20 205/84 94 L 08/26/24 12:00 80 18 181/76 98 Pain Assessment - Last Documented Pain Intensity 0 Intake and Output: Intake & Output 08/24/24 08/25/24 08/26/24 08/27/24 11:59 11:59 11:59 11:59 Intake Total 0 1426 Output Total 600 2400 Balance -600 -974 Weight 89.9 kg Lab Results: Lab Results-Last 24 Hours 08/26/24 08/26/24 08/27/24 Range/Units 13:32 21:43 04:26 WBC 8.4 (3.98-10.04) x10^3/uL RBC 3.10 L (3.93-5.22) x10^6/uL Hgb 9.5 L (11.2-15.7) g/dL Hct 28.2 L (34.1-44.9) % MCV 91.0 (79.4-94.8) fL MCH 30.6 (25.6-32.2) pg MCHC 33.7 (32.2-35.5) g/dL RDW 14.4 (11.7-14.4) % Plt Count 151 L (182-369) x10^3/uL MPV 10.3 (9.4-12.3) fL Sodium (135-145) mmol/L Potassium (3.5-5.1) mmol/L Chloride (98-107) mmol/L Carbon Dioxide (22-30) mmol/L Anion Gap (5-15) MEQ/L BUN (7-17) mg/dL Creatinine (0.52-1.04) mg/dL Estimated GFR ML/MIN Glucose (74-106) mg/dL POC Glucometer 160 H 156 H (74 to 106) mg/dL Calcium (8.4-10.2) mg/dL Total Bilirubin (0.2-1.3) mg/dL AST (14-36) U/L ALT (0-35) U/L Alkaline Phosphatase (38-126) U/L Serum Total Protein (6.3-8.2) g/dL Albumin (3.5-5.0) g/dL 08/27/24 Range/Units 04:26 WBC (3.98-10.04) x10^3/uL RBC (3.93-5.22) x10^6/uL Hgb (11.2-15.7) g/dL Hct (34.1-44.9) % MCV (79.4-94.8) fL MCH (25.6-32.2) pg MCHC (32.2-35.5) g/dL RDW (11.7-14.4) % Plt Count (182-369) x10^3/uL MPV (9.4-12.3) fL Sodium 133 L (135-145) mmol/L Potassium 4.1 (3.5-5.1) mmol/L Chloride 99 (98-107) mmol/L Carbon Dioxide 28 (22-30) mmol/L Anion Gap 9.8 (5-15) MEQ/L BUN 29 H (7-17) mg/dL Creatinine 1.87 H (0.52-1.04) mg/dL Estimated GFR 27.7 ML/MIN Glucose 134 H (74-106) mg/dL POC Glucometer (74 to 106) mg/dL Calcium 8.8 (8.4-10.2) mg/dL Total Bilirubin 0.70 (0.2-1.3) mg/dL AST 21 (14-36) U/L ALT 11 (0-35) U/L Alkaline Phosphatase 86 (38-126) U/L Serum Total Protein 6.2 L (6.3-8.2) g/dL Albumin 3.6 (3.5-5.0) g/dL Radiology Exams: Radiology Procedures Category Date Time Status HEAD WITHOUT CONTRAST [CT] Stat Exams 08/26/24 00:06 Completed MRI BRAIN W/O CONTRAST [MRI] Stat Exams 08/26/24 09:08 Completed Multi-Disciplinary Progress Notes: Multi-Disciplinary Progress Notes 08/26/24 19:57 Physical Therapy Note by Armando(L#[id number])Ambar P.T. MOBILITY ASSESSMENT COMPLETED AND IN CHART. ASSESSED COCCYX/SACRUM SKIN AND NO OPEN AREAS NOTED. PICTURE IN CHART. NOTED SMALL AREA OF DRY SKIN OVER SACRUM. COPIOUS BARRIER OINTMENT APPLIED TO SACRUM AND NURSING TO APPLY REGULARLY AND RE-POSITION PT. FOR PRESSURE RELIEF EVERY TWO HOURS. NO SKILLED INTERVENTION WARRANTED FOR WOUND CARE AT THIS TIME. Initialized on 08/26/24 19:57 - END OF NOTE 08/26/24 18:00 ST Eval by RaadL#[id number],Karena Speech Language Eval and Plan of Care ST Eval & Treat per MD Order Start: 08/26/24 09:12 Freq: .as ordered Status: Active Protocol: Document 08/26/24 16:39 (Rec: 08/26/24 16:55 [id number]) E-Sign 08/26/24 16:39 Speech Language Pathology Evaluation Clinical Data Primary Diagnosis CVA Primary Diagnosis (cont) SEIZURES Treatment Diagnosis 1 R13.12 - DYSPHAGIA, OROPHARYNGEAL PHASE Treatment Diagnosis 2 R47.01 - APHASIA Neurological History No Pertinent History ENT History Cataracts Endocrine Medical History Diabetes Type II Respiratory History CHF Cardiac History Hypertension GI Medical History Irritable Bowel History Renal Disease,Other Femal Reproductive Disorders Breast Cancer Musculoskelatal History Arthritis,Fibromyalgia Pyscho-Social History Anxiety,Depression Other Medical History ADMITTED FOR 11/26 FOR PNA,01/04 FOR BLOOD CLOTS AND ANTIBIOTICS FOR RESIDUAL PNA. LUMBAR SX TLIF MAR 2020, CKD STAGE 4, CONGESTIVE HEART FAILURE, TAVR 2016, DM, LUPUS, IBS, GERD, ANXIETY, DEPRESSION, BIPOLAR. BROKEN RLE. SX: INSTESTINAL BYPASS AND REVERSAL, LEFT MASTECTOMY, TAVER, LUMBAR LAMINECTOMY 2016 , STEROID INJECTIONS. Hx Anesthesia Reactions No Hx Malignant Hyperthermia No Neuro Surgical History No Pertinent History ENT Surgical History Cataract Surgery Respiratory Surgical History No Pertinent History Cardiac Surgical History Other Gastrointestinal Surgical History Appendectomy,Cholecystectomy Genitourinary Surgical History No Pertinent History Female Surgical History Hysterectomy, Section, Tubal Ligation,Lumpectomy Musculskeletal Surgical Hx No Pertinent History Other Surgical History intestinal bypass and then reverse,sinus surgery times 2 roof/mouth then sinus surgery nose,left foot planters wart, right breast tumor,rt ankle/ right leg sx after fx,left breast mastectomy with sentinel removed,6 marek steroid inj,t.a.v.r.-transcatheter aortic value replacement, lumbar laminectomy, steroid injections in back multiple times a year Reason for Referral PER CAR SUPPLIER, PATIENT WITH CVA, AMS, SEIZURES, HTN, AND ENCEPHALOPATHY Date of Onset 08/23/2024 Modified Barium Swallow Study completed No Date of Evaluation/SOC 08/26/24 Patient Orientation Person Ability to Follow Directions Fair Oral Expression Ability Moderate Impairment,Severe Impairment Cooperation Accepts Prior Level of Functioning Prior to Onset PATIENT RESIDES AT HOME WITH . HE IS THE PRIMARY CAREGIVER. Previous Speech Therapy Yes Patient Aware of Diagnosis Questionable Patient Aware of Prognosis Questionable Clinical Bedside Swallow Evaluation Initial Symptoms Reported By: Nursing,Chart Review Aspiration Pneumonia No Coughing/Choking No Other: CVA Current Diet NPO Alternative Feeding No Weight Loss No Temperature Avel No UTI No Oral Motor Examination Lips WFL Tongue WFL Teeth Adequate Repair Hard Palate WFL Soft Palate WFL Laryngeal Movement with swallow,Vocal quality WFL Pain Assessment Do you have pain on swallowing No Non-verbal signs & symptoms of pain No Feeding Summary Consistencies Trialed Ground,Mechanical Soft,Pureed, Regular Thin Coughing/Choking After Swallow Consistency With Cough Regular Thin Comment PATIENT WITH THROAT-CLEARING COUGH AFTER SWALLOW OF THIN LIQUID WATER X 1. COUGH DID NOT OCCUR AT ANY OTHER TIME DURING BEDSIDE SWALLOW EVALUATION. PATIENT INDEPENDENT WITH FEEDING AND DRINKING FROM A STRAW AFTER SET UP OF TRAY. ST ASSISTED PATIENT WITH MEDICATION INTAKE . SHE REQUESTED PILLS TO BE PUT IN APPLESAUCE. ST PROVIDED 1-2 PILLS IN APPLESAUCE WITHOUT CRUSHING WITH NO CLINICAL S/S OF ASPIRATION. Clinical Summary/Impressions Dysphagia Severity No Difficulties Additional Comments/Observations/Summary PATIENT DEMONSTRATED NO CLINICAL SWALLOW DEFICITS DURING THIS EVALUATION. RECOMMEND ST TO COMPLETE SPEECH/LANGUAGE EVALUATION DUE TO APHASIA. Speech Therapy Teaching Record Teaching Summary Results/Recommendations Learning Preferences Discussion Barriers to Learning Cognitive/Verbal Readiness for Learning Accepting Teaching Methods Discussion,Demonstration Teaching Recipient Patient,Primary Caregiver Response to Teaching Verbalize understanding ST Recommendations Diet Consistency Regular Comment PATIENT DEMONSTRATED FUNCTIONAL SWALLOWING SKILLS FOR REGULAR CONSISTENCY DIET. Liquid Consistency Regular Thin Safe Swallow Compensatory Strategies Compensatory Strategies Upright Position for all meals ,Small bites and drinks, Alternate solids/liquids Medication Instructions Per Patient Preference Rehabilitation Potential: GOOD Additional Comments: RECOMMEND COMPLETION OF SPEECH /LANGUAGE EVALUATION. Signatures Speech Therapist Signature MS PEG, CCC/POWER EQUIPMENT TECHNOLOGY INSTRUCTOR Initialized on 08/26/24 18:00 - END OF NOTE 08/26/24 15:44 Occupational Therapy Note by Norman (L#[id number])Beti OT DISCUSSED AFTERNOON EVALUATION WITH PHYSICAL THERAPIST, AMBAR Maldonado WHO REPORTS PATIENT WAS SIGNIFICANTLY FATIGUED FOLLOWING HER SESSION. DUE TO THE AMOUNT OF TESTING COMPLETED THIS DATE, OT WILL FOLLOW UP WITH PATIENT ON NEXT DATE. Initialized on 08/26/24 15:44 - END OF NOTE Assessment/Plan (1) Altered mental status Current Visit: Yes Status: Acute Code(s): R41.82 - ALTERED MENTAL STATUS, UNSPECIFIED (2) Hypertension Current Visit: Yes Status: Acute Qualifiers: Hypertension type: primary hypertension Qualified Code(s): I10 - Essential (primary) hypertension Code(s): I10 - ESSENTIAL (PRIMARY) HYPERTENSION (3) Acute on chronic kidney failure Current Visit: No Status: Acute Qualifiers: Acute renal failure type: unspecified Chronic kidney disease stage: stage 3 (moderate) Qualified Code(s): N17.9 - Acute kidney failure, unspecified; N18.3 - Chronic kidney disease, stage 3 (moderate) Code(s): N17.9 - ACUTE KIDNEY FAILURE, UNSPECIFIED; N18.9 - CHRONIC KIDNEY DISEASE, UNSPECIFIED (4) Type 2 diabetes mellitus Current Visit: No Status: Chronic Qualifiers: Diabetes mellitus salvage determiner insulin use: with salvage determiner use (5) Encephalopathy acute Current Visit: No Status: Acute Code(s): G93.40 - ENCEPHALOPATHY, UNSPECIFIED (6) Obesity (BMI 30.0-34.9) Current Visit: Yes Status: Chronic Assessment & Plan: (1) Altered mental status Current Visit: Yes Status: Acute Assessment & Plan: - CT head negative - MRI Brain - EEG - neurology consult: note reviewed and agree with plan of care - lipid profile, TSH, ammonia level- reviewed - PT/OT/ ST 08/27 - neuro exam improved - EEG abnormal- neurology reconsulted - MRI brain neg for acute concern Code(s): R41.82 - ALTERED MENTAL STATUS, UNSPECIFIED (2) Hypertension Current Visit: Yes Status: Acute Qualifiers: Hypertension type: primary hypertension Qualified Code(s): I10 - Essential (primary) hypertension Assessment & Plan: - resume home meds - consider PRN meds after MRI results back - trend 08/27 - increased amlodipine to 10mg daily - PRN med - stop IVF Code(s): I10 - ESSENTIAL (PRIMARY) HYPERTENSION (3) Acute on chronic kidney failure Current Visit: No Status: Acute Qualifiers: Acute renal failure type: unspecified Chronic kidney disease stage: stage 3 (moderate) Qualified Code(s): N17.9 - Acute kidney failure, unspecified; N18.3 - Chronic kidney disease, stage 3 (moderate) Assessment & Plan: - Creat 2.08- trend - baseline Creat 1.74 - NS@ 50ml/hr 08/27 - creat 1.87- near baseline - IVF stopped Code(s): N17.9 - ACUTE KIDNEY FAILURE, UNSPECIFIED; N18.9 - CHRONIC KIDNEY DISEASE, UNSPECIFIED (4) Type 2 diabetes mellitus Current Visit: No Status: Chronic Qualifiers: Diabetes mellitus salvage determiner insulin use: with salvage determiner use Assessment & Plan: - Continue Lantus 6 units daily - Accuchecks ac/hs - Low dose s/s - Hgb A1C 6.16- controlled (5) Encephalopathy acute Current Visit: No Status: Acute Assessment & Plan: - 2:2 HTN? per neurology note - neuro checks Q 4 Code(s): G93.40 - ENCEPHALOPATHY, UNSPECIFIED (6) Obesity (BMI 30.0-34.9) Current Visit: Yes Status: Chronic Assessment & Plan: - advised ADA diet and exercise control VTE: Plavix/ SCD's PPI: Protonix Next of KIN: Code status: Full D/C plan: 1-2 days Code(s): E66.811 - OBESITY, CLASS 1 Code(s): E66.811 - OBESITY, CLASS 1
--- NOTE | 2024-08-27 12:18 | PCM.NOTE ---
Date and Time: 08/27/24 1213 Subjective Assessment: Neurology Progress Note: patient was seen yesterday by tele neurologist yesterday. This is a 74 year old female with past medical history of hypertension, diabetes, congestive heart failure, coronary artery disease, chronic kidney disease who presented to the hospital with altered mental status. Her blood pressure was severely elevated and was more than 250 systolic over 120 diastolic. Per , in the past in December of 2023, a similar episode happened with the blood pressure went up and she was confused. Today her blood pressure is staying close to 130s. Patient is still confused and Note back to baseline. She got a MRI which was negative for acute process. It did show old lacunar strokes. EEG was done which showed moderate slowing of the brain waves, no underlying epileptiform discharges clinically, patient was following commands intermittently. Reviewed prior nodes, investigation, images and labs in detail REVIEW OF SYSTEMS: 12 point review of system is negative unless otherwise mentioned in the HPI Vitals reviewed from today Physical Exam: Constitutional: Gen: NAD, HEENT: NC/AT Neurologic Exam: Higher Functions : AA&Ox1; Tracks; Regards Follows simple commands Communicates non fluently memory, concentration, point of knowledge is compromised Language : Comprehension is intact CN II : Visual espinoza appear full; CN III, IV, : EOMI; CN V : JOAQUIN CN VII : Facial movement is full and symmetric CN VIII : hearing intact BL CN IX, X : JOAQUIN CN XI : SCM 5/5 BL CN XII : Tongue protrudes midline Sensory : intact Motor : Tone antigravity UE BL, 1/5 LE BL Deep tendon reflexes : JOAQUIN Gebdck-qd-Ould : normal BL, no dysmetria Abnormal Movements : none seen Gait and Station : Deferred Assessment 74 year old female came to the hospital with auto mental status. 1-Encephalopathy: On presentation was found to have systolic blood pressure more than 250/120. In past, she was confused in setting of high blood pressure as well. No reported seizure activity. MRI brain was obtained which was negative for acute process. It did show old strokes. It also showed small vessel disease and cerebral volume loss EEG reported as moderate slowing. No underlying epileptiform discharges per report. Also has a history of chronic kidney disease. Cr. today is 1.87. Encephalopathy could be from hypertensive etiology. Also has a history of chronic kidney disease. May have underlying baseline dementia. However she was never officially diagnosed. Plan: Repeat EEG, cEEG is not available if no better by tomorrow, may consider LP Communicated plan with the RN, tried to reach out to MARKETING WRITER and left a voicemail. Delirium prevention; Maintaining good circadian hygiene. Patient should remain out of bed for as long as tolerated. Interaction with visitors encouraged. Blinds of window should be up to allow natural light to illuminate the room. Patient should be oriented regularly with regards to place and time. During the night, room should be darkened and no TV should be playing in the background. Avoid unnecessary sedatives. Patient should be kept well hydrated. Thank you for allowing us to participate in this patients care. Please call [facility] with questions, concerns, or change in patients neurological status. This consult was performed via secure telemedicine 2 way audio/visual platform, patient consent obtained. Laboratory Results - last 24 hr 08/26/24 08/26/24 08/27/24 13:32 21:43 04:26 WBC 8.4 RBC 3.10 L Hgb 9.5 L Hct 28.2 L MCV 91.0 MCH 30.6 MCHC 33.7 RDW 14.4 Plt Count 151 L MPV 10.3 Sodium Potassium Chloride Carbon Dioxide Anion Gap BUN Creatinine Estimated GFR Glucose POC Glucometer 160 H 156 H Calcium Total Bilirubin AST ALT Alkaline Phosphatase Serum Total Protein Albumin 08/27/24 04:26 WBC RBC Hgb Hct MCV MCH MCHC RDW Plt Count MPV Sodium 133 L Potassium 4.1 Chloride 99 Carbon Dioxide 28 Anion Gap 9.8 BUN 29 H Creatinine 1.87 H Estimated GFR 27.7 Glucose 134 H POC Glucometer Calcium 8.8 Total Bilirubin 0.70 AST 21 ALT 11 Alkaline Phosphatase 86 Serum Total Protein 6.2 L Albumin 3.6 Vital Signs - 24 hr 08/26/24 08/26/24 08/26/24 16:00 20:00 23:56 Temperature 97.5 F 98.2 F 97.7 F Pulse Rate 82 83 77 Respiratory 20 18 20 Rate Blood Pressure 205/84 182/76 180/74 [Right Arm] O2 Sat by Pulse 94 L 95 94 L Oximetry 08/27/24 08/27/24 08/27/24 04:00 08:00 11:45 Temperature 97.7 F 96.9 F 97.9 F Pulse Rate 77 83 74 Respiratory 20 22 16 Rate Blood Pressure 180/74 210/91 127/58 [Right Arm] O2 Sat by Pulse 94 L 97 95 Oximetry Allergies hydromorphone [From Dilaudid] Allergy (Severe, Verified 08/26/24 00:01) Difficulty Breathing meclofenamic acid [From Meclomen] Allergy (Severe, Verified 08/26/24 00:01) Skin Irritation morphine Allergy (Severe, Verified 08/26/24 00:01) Difficulty Breathing Sulfa (Sulfonamide Antibiotics) Allergy (Severe, Verified 08/26/24 00:01) Extreme constipation ciprofloxacin [From Cipro] Allergy (Intermediate, Verified 08/26/24 00:01) Itching diphenhydramine [From Benadryl] Allergy (Intermediate, Verified 08/26/24 00:01) Swelling of Tongue and Lips pt unable to take po due to swelling of tongue and lips. Can take IM. nitrofurantoin Allergy (Intermediate, Verified 08/26/24 00:01) severe vomiting and shakes Past Medical History Past Medical History Yes Neurological History No Pertinent History ENT History Cataracts Cardiac History Hypertension Respiratory History CHF Endocrine Medical History Diabetes Type II Musculoskelatal History Arthritis,Fibromyalgia GI Medical History Irritable Bowel History Renal Disease,Other Pyscho-Social History Anxiety,Depression Reproductive Disorders Breast Cancer Comment ADMITTED FOR 11/26 FOR PNA,01/04 FOR BLOOD CLOTS AND ANTIBIOTICS FOR RESIDUAL PNA. LUMBAR SX TLIF MAR 2020, CKD STAGE 4, CONGESTIVE HEART FAILURE, TAVR 2015, DM, LUPUS, IBS, GERD, ANXIETY, DEPRESSION, BIPOLAR. BROKEN RLE. SX: INSTESTINAL BYPASS AND REVERSAL, LEFT MASTECTOMY, TAVER, LUMBAR LAMINECTOMY 2016, STEROID INJECTIONS. Past Surgical History Past Surgical History Yes Neuro Surgical History No Pertinent History Cardiac History Other Respiratory Surgery No Pertinent History GI Surgical History Appendectomy,Cholecystectomy Genitourinary Surgical Hx No Pertinent History Musculskeletal Surgical Hx No Pertinent History Female Surgical History Hysterectomy, Section,Tubal Ligation, Lumpectomy Other Surgical History intestinal bypass and then reverse,sinus surgery times 2 roof/mouth then sinus surgery nose,left foot planters wart,right breast tumor,rt ankle/ right leg sx after fx,left breast mastectomy with sentinel removed,6 marek steroid inj,t.a.v.r. -transcatheter aortic value replacement,lumbar laminectomy, steroid injections in back multiple times a year Social History Smoking Status Never smoker Exposure to second hand smoke No Drug Use none Patient Lives Alone No Significant Family History Significant Family History no pertinent family hx Objective Data Vital Signs: Vital Signs - 24 hr Temp Pulse Resp BP Pulse Ox 08/27/24 11:45 97.9 F 74 16 127/58 95 08/27/24 08:00 96.9 F 83 22 210/91 97 08/27/24 04:00 97.7 F 77 20 180/74 94 L 08/26/24 23:56 97.7 F 77 20 180/74 94 L 08/26/24 20:00 98.2 F 83 18 182/76 95 08/26/24 16:00 97.5 F 82 20 205/84 94 L Pain Assessment - Last Documented Pain Intensity 0 Intake and Output: Intake & Output 08/25/24 08/26/24 08/27/24 08/28/24 06:59 06:59 06:59 06:59 Intake Total 1306 120 Output Total 600 2400 Balance -600 -1094 120 Weight 88.8 kg 89.9 kg Lab Results: Lab Results-Last 24 Hours 08/26/24 08/26/24 08/27/24 Range/Units 13:32 21:43 04:26 WBC 8.4 (3.98-10.04) x10^3/uL RBC 3.10 L (3.93-5.22) x10^6/uL Hgb 9.5 L (11.2-15.7) g/dL Hct 28.2 L (34.1-44.9) % MCV 91.0 (79.4-94.8) fL MCH 30.6 (25.6-32.2) pg MCHC 33.7 (32.2-35.5) g/dL RDW 14.4 (11.7-14.4) % Plt Count 151 L (182-369) x10^3/uL MPV 10.3 (9.4-12.3) fL Sodium (135-145) mmol/L Potassium (3.5-5.1) mmol/L Chloride (98-107) mmol/L Carbon Dioxide (22-30) mmol/L Anion Gap (5-15) MEQ/L BUN (7-17) mg/dL Creatinine (0.52-1.04) mg/dL Estimated GFR ML/MIN Glucose (74-106) mg/dL POC Glucometer 160 H 156 H (74 to 106) mg/dL Calcium (8.4-10.2) mg/dL Total Bilirubin (0.2-1.3) mg/dL AST (14-36) U/L ALT (0-35) U/L Alkaline Phosphatase (38-126) U/L Serum Total Protein (6.3-8.2) g/dL Albumin (3.5-5.0) g/dL 08/27/24 Range/Units 04:26 WBC (3.98-10.04) x10^3/uL RBC (3.93-5.22) x10^6/uL Hgb (11.2-15.7) g/dL Hct (34.1-44.9) % MCV (79.4-94.8) fL MCH (25.6-32.2) pg MCHC (32.2-35.5) g/dL RDW (11.7-14.4) % Plt Count (182-369) x10^3/uL MPV (9.4-12.3) fL Sodium 133 L (135-145) mmol/L Potassium 4.1 (3.5-5.1) mmol/L Chloride 99 (98-107) mmol/L Carbon Dioxide 28 (22-30) mmol/L Anion Gap 9.8 (5-15) MEQ/L BUN 29 H (7-17) mg/dL Creatinine 1.87 H (0.52-1.04) mg/dL Estimated GFR 27.7 ML/MIN Glucose 134 H (74-106) mg/dL POC Glucometer (74 to 106) mg/dL Calcium 8.8 (8.4-10.2) mg/dL Total Bilirubin 0.70 (0.2-1.3) mg/dL AST 21 (14-36) U/L ALT 11 (0-35) U/L Alkaline Phosphatase 86 (38-126) U/L Serum Total Protein 6.2 L (6.3-8.2) g/dL Albumin 3.6 (3.5-5.0) g/dL Radiology Exams: Radiology Procedures Category Date Time Status HEAD WITHOUT CONTRAST [CT] Stat Exams 08/26/24 00:06 Completed MRI BRAIN W/O CONTRAST [MRI] Stat Exams 08/26/24 09:08 Completed Multi-Disciplinary Progress Notes: Multi-Disciplinary Progress Notes 08/26/24 19:57 Physical Therapy Note by Armando(L#[id number])Ambar P.T. MOBILITY ASSESSMENT COMPLETED AND IN CHART. ASSESSED COCCYX/SACRUM SKIN AND NO OPEN AREAS NOTED. PICTURE IN CHART. NOTED SMALL AREA OF DRY SKIN OVER SACRUM. COPIOUS BARRIER OINTMENT APPLIED TO SACRUM AND NURSING TO APPLY REGULARLY AND RE-POSITION PT. FOR PRESSURE RELIEF EVERY TWO HOURS. NO SKILLED INTERVENTION WARRANTED FOR WOUND CARE AT THIS TIME. Initialized on 08/26/24 19:57 - END OF NOTE 08/26/24 18:00 ST Eval by Jaqui(L#[id number] Speech Language Eval and Plan of Care ST Eval & Treat per MD Order Start: 08/26/24 09:12 Freq: .as ordered Status: Active Protocol: Document 08/26/24 16:39 (Rec: 08/26/24 16:55 [id number]) E-Sign 08/26/24 16:39 Speech Language Pathology Evaluation Clinical Data Primary Diagnosis CVA Primary Diagnosis (cont) SEIZURES Treatment Diagnosis 1 R13.12 - DYSPHAGIA, OROPHARYNGEAL PHASE Treatment Diagnosis 2 R47.01 - APHASIA Neurological History No Pertinent History ENT History Cataracts Endocrine Medical History Diabetes Type II Respiratory History CHF Cardiac History Hypertension GI Medical History Irritable Bowel History Renal Disease,Other Femal Reproductive Disorders Breast Cancer Musculoskelatal History Arthritis,Fibromyalgia Pyscho-Social History Anxiety,Depression Other Medical History ADMITTED FOR 11/26 FOR PNA,01/04 FOR BLOOD CLOTS AND ANTIBIOTICS FOR RESIDUAL PNA. LUMBAR SX TLIF MAR 2020, CKD STAGE 4, CONGESTIVE HEART FAILURE, TAVR 2016, DM, LUPUS, IBS, GERD, ANXIETY, DEPRESSION, BIPOLAR. BROKEN RLE. SX: INSTESTINAL BYPASS AND REVERSAL, LEFT MASTECTOMY, TAVER, LUMBAR LAMINECTOMY 2016 , STEROID INJECTIONS. Hx Anesthesia Reactions No Hx Malignant Hyperthermia No Neuro Surgical History No Pertinent History ENT Surgical History Cataract Surgery Respiratory Surgical History No Pertinent History Cardiac Surgical History Other Gastrointestinal Surgical History Appendectomy,Cholecystectomy Genitourinary Surgical History No Pertinent History Female Surgical History Hysterectomy, Section, Tubal Ligation,Lumpectomy Musculskeletal Surgical Hx No Pertinent History Other Surgical History intestinal bypass and then reverse,sinus surgery times 2 roof/mouth then sinus surgery nose,left foot planters wart, right breast tumor,rt ankle/ right leg sx after fx,left breast mastectomy with sentinel removed,6 marek steroid inj,t.a.v.r.-transcatheter aortic value replacement, lumbar laminectomy, steroid injections in back multiple times a year Reason for Referral PER MARKETING WRITER, PATIENT WITH CVA, AMS, SEIZURES, HTN, AND ENCEPHALOPATHY Date of Onset 08/23/2024 Modified Barium Swallow Study completed No Date of Evaluation/SOC 08/26/24 Patient Orientation Person Ability to Follow Directions Fair Oral Expression Ability Moderate Impairment,Severe Impairment Cooperation Accepts Prior Level of Functioning Prior to Onset PATIENT RESIDES AT HOME WITH . HE IS THE PRIMARY CAREGIVER. Previous Speech Therapy Yes Patient Aware of Diagnosis Questionable Patient Aware of Prognosis Questionable Clinical Bedside Swallow Evaluation Initial Symptoms Reported By: Nursing,Chart Review Aspiration Pneumonia No Coughing/Choking No Other: CVA Current Diet NPO Alternative Feeding No Weight Loss No Temperature Avel No UTI No Oral Motor Examination Lips WFL Tongue WFL Teeth Adequate Repair Hard Palate WFL Soft Palate WFL Laryngeal Movement with swallow,Vocal quality WFL Pain Assessment Do you have pain on swallowing No Non-verbal signs & symptoms of pain No Feeding Summary Consistencies Trialed Ground,Mechanical Soft,Pureed, Regular Thin Coughing/Choking After Swallow Consistency With Cough Regular Thin Comment PATIENT WITH THROAT-CLEARING COUGH AFTER SWALLOW OF THIN LIQUID WATER X 1. COUGH DID NOT OCCUR AT ANY OTHER TIME DURING BEDSIDE SWALLOW EVALUATION. PATIENT INDEPENDENT WITH FEEDING AND DRINKING FROM A STRAW AFTER SET UP OF TRAY. ST ASSISTED PATIENT WITH MEDICATION INTAKE . SHE REQUESTED PILLS TO BE PUT IN APPLESAUCE. ST PROVIDED 1-2 PILLS IN APPLESAUCE WITHOUT CRUSHING WITH NO CLINICAL S/S OF ASPIRATION. Clinical Summary/Impressions Dysphagia Severity No Difficulties Additional Comments/Observations/Summary PATIENT DEMONSTRATED NO CLINICAL SWALLOW DEFICITS DURING THIS EVALUATION. RECOMMEND ST TO COMPLETE SPEECH/LANGUAGE EVALUATION DUE TO APHASIA. Speech Therapy Teaching Record Teaching Summary Results/Recommendations Learning Preferences Discussion Barriers to Learning Cognitive/Verbal Readiness for Learning Accepting Teaching Methods Discussion,Demonstration Teaching Recipient Patient,Primary Caregiver Response to Teaching Verbalize understanding ST Recommendations Diet Consistency Regular Comment PATIENT DEMONSTRATED FUNCTIONAL SWALLOWING SKILLS FOR REGULAR CONSISTENCY DIET. Liquid Consistency Regular Thin Safe Swallow Compensatory Strategies Compensatory Strategies Upright Position for all meals ,Small bites and drinks, Alternate solids/liquids Medication Instructions Per Patient Preference Rehabilitation Potential: GOOD Additional Comments: RECOMMEND COMPLETION OF SPEECH /LANGUAGE EVALUATION. Signatures Speech Therapist Signature MS PEG, CCC/DEPUTY COUNTY CLERK Initialized on 08/26/24 18:00 - END OF NOTE 08/26/24 15:44 Occupational Therapy Note by Norman (L#[id number])Beti OT DISCUSSED AFTERNOON EVALUATION WITH PHYSICAL THERAPIST, AMBAR Maldonado WHO REPORTS PATIENT WAS SIGNIFICANTLY FATIGUED FOLLOWING HER SESSION. DUE TO THE AMOUNT OF TESTING COMPLETED THIS DATE, OT WILL FOLLOW UP WITH PATIENT ON NEXT DATE. Initialized on 08/26/24 15:44 - END OF NOTE
[2024-08-27] MEDS: VITAMIN D PO SCH (12:56)
[2024-08-28] MEDS: TRANDATE 20 MG/4 ML SYRINGE IV PRN (00:31)
[2024-08-28 06:05] LABS: Hematocrit 29.2 % (34.1-44.9); Hemoglobin 10.2 g/dL (11.2-15.7); Mean Corpuscular Hemoglobin 31.8 pg (25.6-32.2); Mean Corpuscular Hgb Concent. 34.9 g/dL (32.2-35.5); Mean Platelet Volume 10.2 fL (9.4-12.3); Platelet Count 148 x10^3/uL (182-369); Red Blood Count 3.21 x10^6/uL (3.93-5.22); Red Cell Distribution Width 14.3 % (11.7-14.4); White Blood Count 8.4 x10^3/uL (3.98-10.04)
[2024-08-28 06:22] LABS: ALBUMIN 3.9 g/dL (3.5-5.0); ANION GAP 14.5 MEQ/L (5-15); BILIRUBIN,TOTAL 0.8 mg/dL (0.2-1.3); Calcium 8.9 mg/dL (8.4-10.2); Creatinine 1 1.8 mg/dL (0.52-1.04); Potassium 4.2 mmol/L (3.5-5.1); Total Protein 6.5 g/dL (6.3-8.2)
[2024-08-28 07:34] VITALS: PULSE 78
--- NOTE | 2024-08-28 10:31 | PCM.DS ---
Discharge Summary Date of Admission: 08/26/24 08:15 Date of Discharge: 08/28/24 Admitting Physician: PEGGY WOLFE MD Primary Care Provider: MARIO,SONIA Allergies Allergies hydromorphone [From Dilaudid] Allergy (Severe, Verified 08/26/24 00:01) Difficulty Breathing meclofenamic acid [From Meclomen] Allergy (Severe, Verified 08/26/24 00:01) Skin Irritation morphine Allergy (Severe, Verified 08/26/24 00:01) Difficulty Breathing Sulfa (Sulfonamide Antibiotics) Allergy (Severe, Verified 08/26/24 00:01) Extreme constipation ciprofloxacin [From Cipro] Allergy (Intermediate, Verified 08/26/24 00:01) Itching diphenhydramine [From Benadryl] Allergy (Intermediate, Verified 08/26/24 00:01) Swelling of Tongue and Lips pt unable to take po due to swelling of tongue and lips. Can take IM. nitrofurantoin Allergy (Intermediate, Verified 08/26/24 00:01) severe vomiting and [facility] Summary - Hospital Course Hospital Course: 08/26/24 is a 74 year old female with PMHX of hypertension, CHF, diabetes, fibromyalgia, chronic renal disease, history of gastroesophageal reflux disease, bipolar disorder and depression. Patient is on Plavix secondary to history of blood clots. She was brought into the emergency department by the paramedics secondary to altered mental status that began 3 days ago and has been worsening since that time. There is no known head injury. Patient was able to tell me she has no pain anywhere. She is oriented to person and place, not time, + dysmetria. CT head negative. MRI brain and EEG ordered for further eval. Neurology consulted in ER and note reviewed. PT/ST/OT eval. 08/27/24 The patient is resting in bed, alert and awake, but oriented only to person. Her neurological exam today is otherwise normal, except for confusion regarding orientation and noted weakness. She requires heavy assistance from two staff members to use the restroom. An MRI performed yesterday showed no acute findings, but an EEG was abnormal, prompting a reconsultation with Tele- neurology for further evaluation. Her blood pressure remains elevated, so amlodipine was increased to 10 mg daily, and she did not require any PRN blood pressure medications overnight. Intravenous fluids were discontinued as her kidney function has returned to near baseline. There are concerns regarding her weakness and ability to manage at home, with the patients spouse expressing difficulty in providing adequate care. As a result, case management will discuss potential rehabilitation placement with the patient and her spouse. 08/28/24 Pt resting in bed with lights on and blinds open per neurology request. She is less alert today than previous days. She is only alert to person, and unable to follow simple commands. EEG yesterday showed slowing. Per neurology if sxs do not improve by today she needs tx to higher level of care for spinal tap. Bp improving. She is not swallowing well today and nurse is unable to give oral meds at this point even with apple sauce. Pt to tx to higher level of care today where there is a neurologist. - Vitals & Intake/Output Vital Signs: Vital Signs Temperature 97.2 F 08/28/24 07:33 Pulse Rate 78 08/28/24 07:33 Respiratory Rate 11 L 08/28/24 07:33 Blood Pressure 164/92 08/28/24 07:33 O2 Sat by Pulse Oximetry 95 08/28/24 07:33 Intake & Output: Intake & Output 08/25/24 08/26/24 08/27/24 08/28/24 11:59 11:59 11:59 11:59 Intake Total 0 1426 620 Output Total 600 2400 1000 Balance -600 974 -380 Weight 89.9 kg - Lab Result Diagrams: 08/28/24 05:25 08/28/24 05:25 Lab Results-Last 24 Hrs: Lab Results-Last 24 Hours 08/28/24 08/28/24 08/28/24 Range/Units 05:25 05:25 05:25 WBC 8.4 (3.98-10.04) x10^3/uL RBC 3.21 L (3.93-5.22) x10^6/uL Hgb 10.2 L (11.2-15.7) g/dL Hct 29.2 L (34.1-44.9) % MCV 91.0 (79.4-94.8) fL MCH 31.8 (25.6-32.2) pg MCHC 34.9 (32.2-35.5) g/dL RDW 14.3 (11.7-14.4) % Plt Count 148 L (182-369) x10^3/uL MPV 10.2 (9.4-12.3) fL Sodium 134 L (135-145) mmol/L Potassium 4.2 (3.5-5.1) mmol/L Chloride 97 L (98-107) mmol/L Carbon Dioxide 27 (22-30) mmol/L Anion Gap 14.5 (5-15) MEQ/L BUN 28 H (7-17) mg/dL Creatinine 1.80 H (0.52-1.04) mg/dL Estimated GFR 29.0 ML/MIN Glucose 152 H (74-106) mg/dL POC Glucometer (74 to 106) mg/dL Calcium 8.9 (8.4-10.2) mg/dL Total Bilirubin 0.80 (0.2-1.3) mg/dL AST 27 (14-36) U/L ALT 12 (0-35) U/L Alkaline Phosphatase 86 (38-126) U/L Serum Total Protein 6.5 (6.3-8.2) g/dL Albumin 3.9 (3.5-5.0) g/dL 25-OH Vitamin D Total 72.5 (30-100) ng/mL 08/28/24 Range/Units 07:22 WBC (3.98-10.04) x10^3/uL RBC (3.93-5.22) x10^6/uL Hgb (11.2-15.7) g/dL Hct (34.1-44.9) % MCV (79.4-94.8) fL MCH (25.6-32.2) pg MCHC (32.2-35.5) g/dL RDW (11.7-14.4) % Plt Count (182-369) x10^3/uL MPV (9.4-12.3) fL Sodium (135-145) mmol/L Potassium (3.5-5.1) mmol/L Chloride (98-107) mmol/L Carbon Dioxide (22-30) mmol/L Anion Gap (5-15) MEQ/L BUN (7-17) mg/dL Creatinine (0.52-1.04) mg/dL Estimated GFR ML/MIN Glucose (74-106) mg/dL POC Glucometer 154 H (74 to 106) mg/dL Calcium (8.4-10.2) mg/dL Total Bilirubin (0.2-1.3) mg/dL AST (14-36) U/L ALT (0-35) U/L Alkaline Phosphatase (38-126) U/L Serum Total Protein (6.3-8.2) g/dL Albumin (3.5-5.0) g/dL 25-OH Vitamin D Total (30-100) ng/mL Micro Results-Entire Visit: Accuchecks Date 08/28/24 Date 08/27/24 Date 08/27/24 Date 08/27/24 Time 07:33 Time 21:45 Time 12:03 - Procedures and Test Procedures and Tests throughout Hospitalization: Therapy Orders & Screens 08/26/24 08:15 EEG 41-60 Minutes (Normal) ONCE Comment: Reason For Exam: Diagnosis: Confusion 08/26/24 08:49 ST Screen per Nursing Assess ONCE Comment: Protocol Order Physician Instructions: Greater than [address] Admission Screening Reason For Exam: Triggered on Admission Diagnosis: AMS, SEIZURES, HTN, ENCEPHALPOPHY CVA/Dysphagia/Aphasia: Yes Cognitive Deficits: No Dehydration/Nutrition Deficit: No Reflux: No Oral-Motor Difficulties: No Pneumonia: No Alf Resident: No Total Points: 5 08/26/24 09:12 PT Eval & Treat (MD Order) ONCE Reason for Eval:: CVA, wound coccyx Diagnosis: AMS, SEIZURES, HTN, ENCEPHALPOPHY ST Eval & Treat (MD Order) .as ordered Comment: Physician Instructions: Reason For Exam: Evaluate: Yes Treat: Yes Reason for Eval: CVA Diagnosis: AMS, SEIZURES, HTN, ENCEPHALPOPHY OT Eval and Treat (MD Order) ONCE Comment: Physician Instructions: Reason For Exam: Diagnosis: AMS, SEIZURES, HTN, ENCEPHALPOPHY 08/27/24 12:07 EEG 41-60 Minutes (Normal) ONCE Comment: Reason For Exam: Diagnosis: AMS, SEIZURES, HTN, ENCEPHALPOPHY Discharge Exam General Appearance: no apparent distress, alert, obese Neurologic Exam: alert, cooperative, normal mood/affect, sensation nml, disoriented, confusion, motor weakness, abnormal store coordinator II-XII, No motor deficits Eye Exam: PERRL, EOMI, eyes nml inspection Ears, Nose, Throat Exam: normal ENT inspection, pharynx normal, moist mucous membranes Neck Exam: normal inspection, non-tender, supple, full range of motion Respiratory Exam: normal breath sounds, lungs clear, No respiratory distress Cardiovascular Exam: regular rate/rhythm, normal heart sounds Gastrointestinal/Abdomen Exam: soft, No tenderness, No mass Pelvic Exam: deferred Rectal Exam: deferred Back Exam: normal inspection, normal range of motion, No CVA tenderness, No vertebral tenderness Extremity Exam: normal inspection, normal range of motion Skin Exam: warm, dry, pale Final Diagnosis/Problem List - Final Discharge Diagnosis/Problem (1) Altered mental status Current Visit: Yes Status: Acute Code(s): R41.82 - ALTERED MENTAL STATUS, UNSPECIFIED (2) Hypertension Current Visit: Yes Status: Acute Code(s): I10 - ESSENTIAL (PRIMARY) HYPERTENSION (3) Acute on chronic kidney failure Current Visit: No Status: Acute Code(s): N17.9 - ACUTE KIDNEY FAILURE, UNSPECIFIED; N18.9 - CHRONIC KIDNEY DISEASE, UNSPECIFIED (4) Type 2 diabetes mellitus Current Visit: No Status: Chronic (5) Encephalopathy acute Current Visit: No Status: Acute Code(s): G93.40 - ENCEPHALOPATHY, UNSPECIFIED (6) Obesity (BMI 30.0-34.9) Current Visit: Yes Status: Chronic Assessment & Plan: (1) Altered mental status Current Visit: Yes Status: Acute Assessment & Plan: - CT head negative - MRI Brain - EEG - neurology consult: note reviewed and agree with plan of care - lipid profile, TSH, ammonia level- reviewed - PT/OT/ ST 08/27 - neuro exam improved - EEG abnormal- neurology reconsulted - MRI brain neg for acute concern 08/28 - worsening mental status and confusion- tx to higher level of care per neurology for spinal tap -Lights on in room, blinds open per neuro recs Code(s): R41.82 - ALTERED MENTAL STATUS, UNSPECIFIED (2) Hypertension Current Visit: Yes Status: Acute Qualifiers: Hypertension type: primary hypertension Qualified Code(s): I10 - Essential (primary) hypertension Assessment & Plan: - resume home meds - consider PRN meds after MRI results back - trend 08/27 - increased amlodipine to 10mg daily - PRN med - stop IVF 08/28 - BP improved however pt unable to swallow meds today - Will use PRN hypertensive med Code(s): I10 - ESSENTIAL (PRIMARY) HYPERTENSION (3) Acute on chronic kidney failure Current Visit: No Status: Acute Qualifiers: Acute renal failure type: unspecified Chronic kidney disease stage: stage 3 (moderate) Qualified Code(s): N17.9 - Acute kidney failure, unspecified; N18.3 - Chronic kidney disease, stage 3 (moderate) Assessment & Plan: - Creat 2.08- trend - baseline Creat 1.74 - NS@ 50ml/hr 08/27 - creat 1.87- near baseline - IVF stopped 08/28 Creat 1.80- at baseline Code(s): N17.9 - ACUTE KIDNEY FAILURE, UNSPECIFIED; N18.9 - CHRONIC KIDNEY DISEASE, UNSPECIFIED (4) Type 2 diabetes mellitus Current Visit: No Status: Chronic Qualifiers: Diabetes mellitus buttermaker insulin use: with nursing home use Assessment & Plan: - Continue Lantus 6 units daily - Accuchecks ac/hs - Low dose s/s - Hgb A1C 6.16- controlled (5) Encephalopathy acute Current Visit: No Status: Acute Assessment & Plan: - 2:2 HTN? per neurology note - neuro checks Q 4 Code(s): G93.40 - ENCEPHALOPATHY, UNSPECIFIED (6) Obesity (BMI 30.0-34.9) Current Visit: Yes Status: Chronic Assessment & Plan: - advised ADA diet and exercise control Code(s): E66.811 - OBESITY, CLASS 1 - Discharge Discharge Date: 08/28/24 Disposition: DC TO OTHER HOSP Condition: Fair Prescriptions: Continue Multivitamin [Multi-Vitamin Daily] 1 tab PO DAILY Trazodone HCl 50 mg [Desyrel 50 mg] 100 mg PO HS Duloxetine HCl [Cymbalta] 60 mg PO DAILY Gabapentin [Neurontin] 300 mg PO BID Potassium Chloride Tab* [Klor Con] 10 meq PO BREAKFAST Isosorbide Mononitrate 30 mg [Imdur 30 MG] 30 mg PO DAILY Bumetanide [Bumex] 2 mg PO DAILY Nitroglycerin 0.4 mg Tablet [Nitrostat 0.4 MG Tablet] 0.4 mg SL Q5MIN PRN MR X 3 PRN PRN Reason: Pain Metoprolol Succinate 50 mg [Toprol Xl 50 MG] 50 mg PO BID Clopidogrel Bisulfate [PLAVIX Tablet] 75 mg PO DAILY allopurinoL [Zyloprim] 300 mg PO DAILY Insulin Lispro [Humalog] 0 unit SQ UD Losartan Potassium 100 mg PO DAILY OLANZapine [Olanzapine] 5 mg PO BID Amlodipine Besylate 5 mg PO DAILY Evolocumab [Repatha Sureclick] 140 mg SQ UD Insulin Glargine,Hum.rec.anlog [Basaglar Kwikpen U-100] 6 unit SQ DAILY Cyanocobalamin (Vitamin B-12) [B-12] 1,000 mcg PO DAILY Vibegron [Gemtesa] 75 mg PO DAILY Montelukast Sodium 10 mg [Singulair 10 MG] 10 mg PO DAILY Tamsulosin HCl 0.4 mg [Flomax 0.4 MG] 0.4 mg PO BID Acetaminophen [Tylenol Arthritis] 650 mg PO UD PRN PRN Reason: Pain Potassium Chloride Tab* [Klor Con] 10 meq PO LUNCH Potassium Chloride Tab* [Klor Con] 10 meq PO DINNER Linaclotide [Linzess] 1 cap PO UD Famotidine 20 mg [Pepcid 20 MG] 40 mg PO BID Doxazosin Mesylate 2 mg [Cardura 2 mg] 1 tab PO QHS Aspirin EC 81 mg [Ecotrin 81 mg] 81 mg PO DAILY Sennosides/Docusate Sodium [Stool Softener-Stim Lax Tablet] 1 tab PO QID Methenamine/Sodium Salicylate [Azo Urinary Tract Defense Tab] 2 tab PO DAILY Cholecalciferol (Vitamin D3) [Vitamin D] 2,000 unit PO UD Follow up with: SONIA MARTIN MD [Primary Care Provider] - 09/02/24 3:00 pm
[2024-08-28 11:29] VITALS: BP 180/77; RESP 13; TEMP 97.1; O2SAT 98
== END 2024-08-28 13:58 | DRG 948 ==
LOC: ED 23:27 → OBSVTOIN 08-26 08:15 → MED SURG 08-26 08:15
PROVIDERS: ADMIT Internal Medicine; ATTEND Internal Medicine
DX: R41.82 Altered mental status, unspecified (principal); N17.9 Acute kidney failure, unspecified; G93.40 Encephalopathy, unspecified; E11.22 Type 2 diabetes mellitus with diabetic chronic kidney disease; I12.9 Hypertensive chronic kidney disease with stage 1 through stage 4 chronic kidney disease, or unspecified chronic kidney disease; N18.30 Chronic kidney disease, stage 3 unspecified; I50.9 Heart failure, unspecified; E66.811 Obesity, class 1; Z79.01 Long term (current) use of anticoagulants; Z79.899 Other long term (current) drug therapy; Z85.3 Personal history of malignant neoplasm of breast
CPT/HCPCS: 36415; 51702; 70450; 70551; 80053; 80061; 80307; 81001; 82140; 82306; 82947; 83036; 83721; 84443; 85025; 85027; 92526; 92610; 93005; 93041; 94760; 95812; 96374; 96375; 96376; 97110; 97163; 97165; 99291; Q3014; 99285; J0360; J1817; A9270-GY